=== PATIENT | female | born 1970 | race Caucasian/White ===

== ENCOUNTER 2017-05-13 13:04 | Inpatient (IN) | payer MEDICARE, OTHER ==
[2017-05-13] MEDS ORDERED: MULTIVITAMINS, THERA 1 EACH TAB PO STA (13:36)
[2017-05-13] MEDS ORDERED: THIAMINE 100 MG/ML 2 ML VIAL IM STA (13:36)
[2017-05-13] MEDS ORDERED: FOLIC ACID 1 MG TAB PO STA (13:36)
[2017-05-13] MEDS ORDERED: SODIUM CHLORIDE 0.9% 1,000 ML IV STA (13:36)
[2017-05-13] MEDS ORDERED: LORazepam 2 MG/ML SYRINGE IV PRN (13:38)
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
[2017-05-13] MEDS ORDERED: ONDANSETRON 4 MG/2 ML VIAL IVP STA (13:51)
[2017-05-13] MEDS: LORazepam 2 MG/ML SYRINGE IV PRN ×6 (14:01→23:43)
[2017-05-13 14:10] LABS: CH 32.9; CHCM 34.8; HCT 39.9 % (34.0-46.0); HDW 2.89; HGB 13.9 gm/dL (11.4-16.0); MCH 33.2 pg (25.0-35.0); Mean Platelet Volume 6.7; RDW 15.8 % (11.5-15.5); WBC 4.8 k/uL (3.8-10.6); WBC (Perox) 4.48
[2017-05-13 14:11] LABS: INR 1.1 (<1.2); Prothrombin Time 11.5 sec (9.0-12.0)
[2017-05-13 14:17] LABS: ALT 46 U/L (9-52); AST 70 U/L (14-36); Acetaminophen <10.0 ug/mL; Alkaline Phosphatase 205 U/L (38-126); Anion Gap 13 mmol/L; Blood Urea Nitrogen 6 mg/dL (7-17); Calcium 8.5 mg/dL (8.4-10.2); Carbon Dioxide 25 mmol/L (22-30); Chloride 105 mmol/L (98-107); Glucose 93 mg/dL (74-99); Magnesium 1.7 mg/dL (1.6-2.3); Non-African American GFR(MDRD) >60 (>60 ml/min/1.73 sqM); Phosphorous 4.7 mg/dL (2.5-4.5); Potassium 4.2 mmol/L (3.5-5.1); Salicylate <1.0 mg/dL; Sodium 143 mmol/L (137-145); Total Bilirubin 0.8 mg/dL (0.2-1.3)
[2017-05-13 14:27] LABS: Alcohol 423 mg/dL
[2017-05-13 14:35] LABS: HCG,Quantitative Serum <2.4 mIU/mL
--- NOTE | 2017-05-13 14:41 | CT ---
EXAMINATION TYPE: CT brain [place] wo con DATE OF EXAM: 05/13/2017 COMPARISON: CT brain 04/19/2016 HISTORY: possible seizure CT DLP: 1355.0 mGycm Automated exposure control for dose reduction was used. TECHNIQUE: CT scan of the head and cervical spine are performed without contrast. FINDINGS: Ventricles and sulci appear normal. There is no mass effect nor midline shift. There is n o sign of intracranial hemorrhage. The calvarium is intact. Vertebra have normal alignment. There is narrowing at C6-7 disc space with moderate spurring of the e ndplates. Facet joints are intact. Skull base is intact. There is no evidence of a fracture. There is multilevel hypertrophic facet arthropathy. IMPRESSION: Negative CT scan of the brain. No change compared to old exam. Moderate spondylosis at C6-7. No fracture.
[2017-05-13 14:54] LABS: Add Differential Manual Differential
[2017-05-13 14:57] LABS: Manual Review Performed; Nucleated Red Blood Cells 0 /100 WBC (0-0); RBC Morphology Normal; Total Cells Counted 100
--- NOTE | 2017-05-13 15:08 | CT ---
EXAMINATION TYPE: CT facial bones wo con DATE OF EXAM: 05/13/2017 COMPARISON: NONE HISTORY: possible seizure CT DLP: 373.5 mGycm Automated exposure control for dose reduction was used. TECHNIQUE: CT scan of the sinuses is performed without contrast, axial images are obtained, coronal r eformatted images are also reviewed. FINDINGS: The zygomatic arches are intact. Orbital margins are intact. There is no sign of a blowout fracture. There is fairly normal aeration of the paranasal sinuses. I see no bony destructive process . Maxilla is intact. Visualized mandible appears normal. Nasal bone appears normal. There is no sign of retro-orbital mass. IMPRESSION: Normal exam. No evidence of traumatic injury. 1 to 2 mm minimal mucosal thickening at the floor of the left maxillary sinus noted.
[2017-05-13] MEDS ORDERED: ONDANSETRON 4 MG/2 ML VIAL IVP PRN (16:08)
[2017-05-13] MEDS ORDERED: NALOXONE 0.4 MG/ML 1 ML VIAL IV PRN (16:08)
[2017-05-13] MEDS ORDERED: hydrOXYzine HCL 25 MG TAB PO PRN (19:02)
[2017-05-13] MEDS ORDERED: NAPROXEN 250 MG TAB PO PRN (19:02)
[2017-05-13 19:05] VITALS: BMI 20.7
[2017-05-13] MEDS: PROPRANOLOL 10 MG TAB PO SCH (20:54)
[2017-05-13] MEDS: levETIRAcetam 500 MG TAB PO SCH (20:54)
[2017-05-13] MEDS: OLANZapine 10 MG TAB PO SCH (20:54)
[2017-05-13] MEDS: LITHIUM CARBONATE ER 450 MG TABLET.ER PO SCH (20:54)
[2017-05-14 08:25] LABS: ALT 49 U/L (9-52); AST 66 U/L (14-36); Alkaline Phosphatase 215 U/L (38-126); Anion Gap 8 mmol/L; Blood Urea Nitrogen 12 mg/dL (7-17); Carbon Dioxide 27 mmol/L (22-30); Chloride 105 mmol/L (98-107); Glucose 84 mg/dL (74-99); Magnesium 1.8 mg/dL (1.6-2.3); Non-African American GFR(MDRD) >60 (>60 ml/min/1.73 sqM); Phosphorous 3.9 mg/dL (2.5-4.5); Potassium 4.2 mmol/L (3.5-5.1); Sodium 140 mmol/L (137-145); Total Protein 7.2 g/dL (6.3-8.2)
[2017-05-14 08:31] LABS: Basophils % (A) 1 %; CH 32.5; CHCM 33.8; Eosinophils % (A) 0 %; HDW 2.82; HGB 12.6 gm/dL (11.4-16.0); Luc # (Auto) 0.06; Luc % (Auto) 2; Lymphocytes % (A) 29 %; MCH 32.8 pg (25.0-35.0); MCHC 33.9 g/dL (31.0-37.0); MCV 96.7 fL (80.0-100.0); Macrocytosis Slight; Monocytes # (A) 0.1 k/uL (0-1.0); Monocytes % (A) 4 %; Neutrophils # (A) 2.1 k/uL (1.3-7.7); Neutrophils % (A) 64 %; RBC 3.83 m/uL (3.80-5.40); RDW 15.6 % (11.5-15.5); WBC 3.3 k/uL (3.8-10.6); WBC (Perox) 3.47
[2017-05-14] MEDS: levETIRAcetam 500 MG TAB PO SCH ×2 (08:37→20:39)
[2017-05-14] MEDS: FAMOTIDINE 20 MG TAB PO SCH (08:37)
[2017-05-14] MEDS: LITHIUM CARBONATE ER 450 MG TABLET.ER PO SCH ×2 (08:37→20:39)
[2017-05-14] MEDS: NICOTINE 14MG/24HR PATCH TRANSDERM SCH (08:37)
[2017-05-14] MEDS: PROPRANOLOL 10 MG TAB PO SCH ×4 (08:37→20:38)
[2017-05-14] MEDS: VENLAFAXINE HCL ER 75 MG CAP PO SCH (08:37)
[2017-05-14 11:40] LABS: Manual Review Performed
[2017-05-14] MEDS: THIAMINE 100 MG TAB PO SCH (11:41)
[2017-05-14] MEDS: LORazepam 2 MG/ML SYRINGE IV PRN ×3 (17:01→23:30)
[2017-05-14] MEDS: OLANZapine 10 MG TAB PO SCH (20:39)
[2017-05-15] MEDS: LORazepam 2 MG/ML SYRINGE IV PRN ×2 (01:18→02:31)
[2017-05-15] MEDS ORDERED: DIAZEPAM 5 MG/ML 2 ML SYRINGE IM STA (03:05)
[2017-05-15] MEDS: NICOTINE 14MG/24HR PATCH TRANSDERM SCH (07:41)
[2017-05-15] MEDS: VENLAFAXINE HCL ER 75 MG CAP PO SCH (08:12)
[2017-05-15] MEDS: FAMOTIDINE 20 MG TAB PO SCH (08:12)
[2017-05-15] MEDS: levETIRAcetam 500 MG TAB PO SCH ×2 (08:12→19:54)
[2017-05-15] MEDS: LITHIUM CARBONATE ER 450 MG TABLET.ER PO SCH ×2 (08:13→19:55)
[2017-05-15] MEDS: PROPRANOLOL 10 MG TAB PO SCH ×4 (08:13→21:42)
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
[2017-05-15] MEDS: THIAMINE 100 MG TAB PO SCH (11:38)
[2017-05-15 15:19] VITALS: RESP 16
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
[2017-05-15] MEDS: OLANZapine 10 MG TAB PO SCH (19:54)
[2017-05-15] MEDS: DIAZEPAM 2 MG TAB PO PRN (19:58)
[2017-05-15 21:58] VITALS: PULSE 85
[2017-05-16] MEDS: FAMOTIDINE 20 MG TAB PO SCH (07:28)
[2017-05-16] MEDS: levETIRAcetam 500 MG TAB PO SCH (07:28)
[2017-05-16] MEDS: PROPRANOLOL 10 MG TAB PO SCH (07:28)
[2017-05-16] MEDS: LITHIUM CARBONATE ER 450 MG TABLET.ER PO SCH (07:28)
[2017-05-16] MEDS: VENLAFAXINE HCL ER 75 MG CAP PO SCH (07:28)
[2017-05-16] MEDS: DIAZEPAM 2 MG TAB PO PRN (07:28)
[2017-05-16] MEDS: NICOTINE 14MG/24HR PATCH TRANSDERM SCH (07:29)
[2017-05-16 07:58] VITALS: BP 109/71; TEMP 97.6
--- NOTE | 2017-05-16 11:55 | PN ---
SUBJECTIVE: White female who has a sitter, psychiatry has seen her. Do not recommend being given. The patient requesting some Valium. Alcohol intoxication. She is withdrawing. Mood disorder. She is to continue with current treatment. Follow up in the next 24 to 48 hours for possible discharge. CARDIOVASCULAR: S1, S2, lungs transmitted upper airway sounds. Hematology: Negative Homans. Psych: Fair mood and affect. Neurological: Alert and oriented times three. ASSESSMENT: 1. Alcohol intoxication. 2. Anxiety. 3. Mood disorder. 4. Electrolytes abnormalities. Continue with Detox protocol. Sitter. Possible discharge home in the next 24 to 48 hours. LUCY
== END 2017-05-16 11:21 | disposition home or self-care (01) | DRG 896 ==
LOC: EC 13:04 → 5MS5E 16:08
PROVIDERS: ADMIT Family Medicine; ATTEND Family Medicine
PROC: HZ2ZZZZ Detoxification Services for Substance Abuse Treatment (ICD-10-PCS; principal; 2017-05-13)
DX: F10.129 Alcohol abuse with intoxication, unspecified (principal); K85.90 Acute pancreatitis without necrosis or infection, unspecified; F11.10 Opioid abuse, uncomplicated; R64 Cachexia; F31.9 Bipolar disorder, unspecified; F39 Unspecified mood [affective] disorder; B19.20 Unspecified viral hepatitis C without hepatic coma; G40.909 Epilepsy, unspecified, not intractable, without status epilepticus; K21.9 Gastro-esophageal reflux disease without esophagitis; F12.10 Cannabis abuse, uncomplicated; F41.8 Other specified anxiety disorders; F14.10 Cocaine abuse, uncomplicated; F17.200 Nicotine dependence, unspecified, uncomplicated; Z79.899 Other long term (current) drug therapy; Z86.59 Personal history of other mental and behavioral disorders; Y07.01 Husband, perpetrator of maltreatment and neglect; Y09 Assault by unspecified means
CPT/HCPCS: 36415; 70450; 70486; 72125; 80053; 80178; 80306; 80320; 83520; 83690; 83735; 84100; 84443; 84702; 85025; 85610; 96361; 96372; 96374; 96375; 96376; 99285

== ENCOUNTER 2017-06-18 12:13 | Inpatient (IN) | payer MEDICARE, OTHER ==
[2017-06-18] MEDS ORDERED: SODIUM CHLORIDE 0.9% 500 ML IV STA (12:20)
--- NOTE | 2017-06-18 12:49 | ED ---
General Adult HPI - General Chief complaint: Overdose Stated complaint: Overdose Time Seen by Provider: 06/18/17 12:15 Source: EMS, RN notes reviewed, old records reviewed Mode of arrival: EMS Limitations: altered mental status - History of Present Illness Initial comments: This is a 46-year-old female ER for evaluation. The patient's father EMS for evaluation of unresponsiveness. Patient has continued unresponsiveness here in the ER. EMS color patient's family patient's for strain secondary to clinical condition. Per history patient has history of drug abuse history of heroin and cocaine abuse as well as history of pain pill abuse and also different pill abuse. Patient also states to be suicidal - Related Data Home Medications Medication Instructions Recorded Confirmed Buprenorphine HCl/Naloxone HCl 2 film SL DAILY 05/14/17 06/18/17 [Suboxone 8 mg-2 mg Sl Film] Escitalopram Oxalate [Lexapro] 20 mg PO DAILY 05/14/17 06/18/17 Mirtazapine [Remeron] 15 mg PO HS 05/14/17 06/18/17 QUEtiapine FUMARATE [Seroquel Xr] 400 mg PO HS 05/14/17 06/18/17 cloNIDine HCL [Catapres] 0.1 mg PO BID 05/14/17 06/18/17 Varenicline [Chantix] 1 mg PO BID 06/18/17 06/18/17 Vitamin E (Dl,Tocopheryl Acet) 400 unit PO DAILY 06/18/17 06/18/17 [Vitamin E] levETIRAcetam [Keppra] 500 mg PO Q12HR 06/18/17 06/18/17 Allergies Allergy/AdvReac Type Severity Reaction Status Date / Time Penicillins AdvReac Severe Rash/Hives Verified 06/18/17 14:05 Review of Systems ROS Statement: Those systems with pertinent positive or pertinent negative responses have been documented in the HPI. ROS Other: All systems not noted in ROS Statement are negative. 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 "IN OCTOBER DRANK RUBBING ALCOHOL". FAMILT STATED PT TAKES SUBOXONE TO HELP HER NOT DRINK AND FOR PAIN IN LEGS/KNEES. Hep C Positive History of Any Multi-Drug Resistant Organisms: MRSA Date of last positivie culture/infection: 04/20/16 MDRO Source:: [facility] Past Surgical History: Hernia Repair, Unable to Obtain, Uterine Ablation Additional Past Surgical History / Comment(s): NOVOSURE ENDOMETRIAL ABLATION. PER MOTHER PT HAD "THROAT BANDING DONE" Past Anesthesia/Blood Transfusion Reactions: No Reported Reaction Additional Past Anesthesia/Blood Transfusion Reaction / Comment(s): Pt received previous blood transfusion at [facility] per past medical record. Past Psychological History: Anxiety, Bipolar, Depression, Panic Disorder Smoking Status: Current every day smoker Past Alcohol Use History: Daily Past Drug Use History: None Reported - Past Family History Father Family Medical History: No Reported History Mother Family Medical History: Cancer Additional Family Medical History / Comment(s): COLON AND LUNG CANCER- AT AGE 50 General Exam Limitations: no limitations General appearance: alert, in no apparent distress Head exam: Present: atraumatic, normocephalic, normal inspection Eye exam: Present: normal appearance, PERRL, EOMI. Absent: scleral icterus, conjunctival injection, periorbital swelling ENT exam: Present: normal exam, mucous membranes moist Neck exam: Present: normal inspection. Absent: tenderness, meningismus, lymphadenopathy Respiratory exam: Present: normal lung sounds bilaterally. Absent: respiratory distress, wheezes, rales, rhonchi, stridor Cardiovascular Exam: Present: regular rate, normal rhythm, normal heart sounds. Absent: systolic murmur, diastolic murmur, rubs, gallop, clicks GI/Abdominal exam: Present: soft, normal bowel sounds. Absent: distended, tenderness, guarding, rebound, rigid Extremities exam: Present: normal inspection, full ROM, normal capillary refill. Absent: tenderness, pedal edema, joint swelling, calf tenderness Back exam: Present: normal inspection Neurological exam: Present: alert, oriented X3, CN II-XII intact Psychiatric exam: Present: normal affect, normal mood Skin exam: Present: warm, dry, intact, normal color. Absent: rash Course Vital Signs 06/18/17 06/18/17 06/18/17 12:15 12:54 13:24 Temperature 98.0 F Pulse Rate 104 H 98 106 H Respiratory 18 18 18 Rate Blood Pressure 123/86 107/77 133/91 O2 Sat by Pulse 97 98 94 L Oximetry 06/18/17 06/18/17 06/18/17 13:54 14:27 14:52 Temperature 98.0 F Pulse Rate 100 84 82 Respiratory 18 18 18 Rate Blood Pressure 108/81 93/58 94/58 O2 Sat by Pulse 95 96 97 Oximetry - Reevaluation(s) Reevaluation #1: 06/18/17 13:10 Patient is mildly responsive not responding to Narcan, protecting airway oxygen saturation normal Reevaluation #2: 06/18/17 14:55 Patient angry aggressive EKG Findings - EKG Comments: EKG Findings:: EKG shows normal sinus rhythm rate of 98, AL 180, QRS 94, QTC 513 Medical Decision Making - Medical Decision Making 46 seen earlier with severe alcohol intoxication. Suicidal attempt. Patient be admitted for psychiatric evaluation and treatment - Lab Data Result diagrams: 06/18/17 12:38 06/18/17 13:22 Lab Results 06/18/17 06/18/17 06/18/17 Range/Units 12:38 12:38 12:38 WBC 2.3 L (3.8-10.6) k/uL RBC 4.27 (3.80-5.40) m/uL Hgb 14.1 (11.4-16.0) gm/dL Hct 41.9 (34.0-46.0) % MCV 98.1 (80.0-100.0) fL MCH 33.1 (25.0-35.0) pg MCHC 33.7 (31.0-37.0) g/dL RDW 14.7 (11.5-15.5) % Plt Count (150-450) k/uL Neutrophils % (Manual) 62 % Band Neutrophils % 3 % Lymphocytes % (Manual) 27 % Monocytes % (Manual) 7 % Basophils % (Manual) 1 % Neutrophils # (Manual) 1.40 (1.3-7.7) k/uL Lymphocytes # (Manual) 0.62 L (1.0-4.8) k/uL Monocytes # (Manual) 0.16 (0-1.0) k/uL Basophils # (Manual) 0.02 (0-0.2) k/uL Nucleated RBCs 0 (0-0) /100 WBC PT 11.5 (9.0-12.0) sec INR 1.1 (<1.2) Sodium (137-145) mmol/L Potassium (3.5-5.1) mmol/L Chloride (98-107) mmol/L Carbon Dioxide (22-30) mmol/L Anion Gap mmol/L BUN (7-17) mg/dL Creatinine (0.52-1.04) mg/dL Est GFR (MDRD) Af Amer (>60 ml/min/1.73 sqM) Est GFR (MDRD) Non-Af (>60 ml/min/1.73 sqM) Glucose (74-99) mg/dL Calcium (8.4-10.2) mg/dL Total Bilirubin (0.2-1.3) mg/dL AST (14-36) U/L ALT (9-52) U/L Alkaline Phosphatase (38-126) U/L Total Creatine Kinase 38 (30-135) U/L CK-MB (CK-2) <0.2 (0.0-2.4) ng/mL CK-MB (CK-2) Rel Index Total Protein (6.3-8.2) g/dL Albumin (3.5-5.0) g/dL Urine HCG, Qual (Not Detectd) Salicylates mg/dL Urine Opiates Screen (NotDetected) Ur Oxycodone Screen (NotDetected) Urine Methadone Screen (NotDetected) Ur Propoxyphene Screen (NotDetected) Acetaminophen ug/mL Ur Barbiturates Screen (NotDetected) Phenytoin ug/mL Valproic Acid ug/mL Carbamazepine ug/mL U Tricyclic Antidepress (NotDetected) Ur Phencyclidine Scrn (NotDetected) Ur Amphetamines Screen (NotDetected) U Methamphetamines Scrn (NotDetected) U Benzodiazepines Scrn (NotDetected) [place] mmol/L Urine Cocaine Screen (NotDetected) U Marijuana (THC) Screen (NotDetected) Serum Alcohol mg/dL 06/18/17 06/18/17 06/18/17 Range/Units 12:58 12:58 13:22 WBC (3.8-10.6) k/uL RBC (3.80-5.40) m/uL Hgb (11.4-16.0) gm/dL Hct (34.0-46.0) % MCV (80.0-100.0) fL MCH (25.0-35.0) pg MCHC (31.0-37.0) g/dL RDW (11.5-15.5) % Plt Count (150-450) k/uL Neutrophils % (Manual) % Band Neutrophils % % Lymphocytes % (Manual) % Monocytes % (Manual) % Basophils % (Manual) % Neutrophils # (Manual) (1.3-7.7) k/uL Lymphocytes # (Manual) (1.0-4.8) k/uL Monocytes # (Manual) (0-1.0) k/uL Basophils # (Manual) (0-0.2) k/uL Nucleated RBCs (0-0) /100 WBC PT (9.0-12.0) sec INR (<1.2) Sodium 145 (137-145) mmol/L Potassium 4.1 (3.5-5.1) mmol/L Chloride 110 H (98-107) mmol/L Carbon Dioxide 23 (22-30) mmol/L Anion Gap 12 mmol/L BUN 5 L (7-17) mg/dL Creatinine 0.50 L (0.52-1.04) mg/dL Est GFR (MDRD) Af Amer >60 (>60 ml/min/1.73 sqM) Est GFR (MDRD) Non-Af >60 (>60 ml/min/1.73 sqM) Glucose 110 H (74-99) mg/dL Calcium 8.2 L (8.4-10.2) mg/dL Total Bilirubin 1.2 (0.2-1.3) mg/dL AST 288 H (14-36) U/L ALT 118 H (9-52) U/L Alkaline Phosphatase 317 H (38-126) U/L Total Creatine Kinase (30-135) U/L CK-MB (CK-2) (0.0-2.4) ng/mL CK-MB (CK-2) Rel Index Total Protein 8.0 (6.3-8.2) g/dL Albumin 4.1 (3.5-5.0) g/dL Urine HCG, Qual Not Detected (Not Detectd) Salicylates <1.0 mg/dL Urine Opiates Screen Detected H (NotDetected) Ur Oxycodone Screen Not Detected (NotDetected) Urine Methadone Screen Not Detected (NotDetected) Ur Propoxyphene Screen Not Detected (NotDetected) Acetaminophen <10.0 ug/mL Ur Barbiturates Screen Not Detected (NotDetected) Phenytoin <3.0 ug/mL Valproic Acid ug/mL Carbamazepine ug/mL U Tricyclic Antidepress Not Detected (NotDetected) Ur Phencyclidine Scrn Not Detected (NotDetected) Ur Amphetamines Screen Not Detected (NotDetected) U Methamphetamines Scrn Not Detected (NotDetected) U Benzodiazepines Scrn Not Detected (NotDetected) [place] mmol/L Urine Cocaine Screen Not Detected (NotDetected) U Marijuana (THC) Screen Not Detected (NotDetected) Serum Alcohol mg/dL 06/18/17 Range/Units 13:27 WBC (3.8-10.6) k/uL RBC (3.80-5.40) m/uL Hgb (11.4-16.0) gm/dL Hct (34.0-46.0) % MCV (80.0-100.0) fL MCH (25.0-35.0) pg MCHC (31.0-37.0) g/dL RDW (11.5-15.5) % Plt Count (150-450) k/uL Neutrophils % (Manual) % Band Neutrophils % % Lymphocytes % (Manual) % Monocytes % (Manual) % Basophils % (Manual) % Neutrophils # (Manual) (1.3-7.7) k/uL Lymphocytes # (Manual) (1.0-4.8) k/uL Monocytes # (Manual) (0-1.0) k/uL Basophils # (Manual) (0-0.2) k/uL Nucleated RBCs (0-0) /100 WBC PT (9.0-12.0) sec INR (<1.2) Sodium (137-145) mmol/L Potassium (3.5-5.1) mmol/L Chloride (98-107) mmol/L Carbon Dioxide (22-30) mmol/L Anion Gap mmol/L BUN (7-17) mg/dL Creatinine (0.52-1.04) mg/dL Est GFR (MDRD) Af Amer (>60 ml/min/1.73 sqM) Est GFR (MDRD) Non-Af (>60 ml/min/1.73 sqM) Glucose (74-99) mg/dL Calcium (8.4-10.2) mg/dL Total Bilirubin (0.2-1.3) mg/dL AST (14-36) U/L ALT (9-52) U/L Alkaline Phosphatase (38-126) U/L Total Creatine Kinase (30-135) U/L CK-MB (CK-2) (0.0-2.4) ng/mL CK-MB (CK-2) Rel Index Total Protein (6.3-8.2) g/dL Albumin (3.5-5.0) g/dL Urine HCG, Qual (Not Detectd) Salicylates mg/dL Urine Opiates Screen (NotDetected) Ur Oxycodone Screen (NotDetected) Urine Methadone Screen (NotDetected) Ur Propoxyphene Screen (NotDetected) Acetaminophen ug/mL Ur Barbiturates Screen (NotDetected) Phenytoin ug/mL Valproic Acid <10.0 ug/mL Carbamazepine <3.0 ug/mL U Tricyclic Antidepress (NotDetected) Ur Phencyclidine Scrn (NotDetected) Ur Amphetamines Screen (NotDetected) U Methamphetamines Scrn (NotDetected) U Benzodiazepines Scrn (NotDetected) [place] <0.2 mmol/L Urine Cocaine Screen (NotDetected) U Marijuana (THC) Screen (NotDetected) Serum Alcohol 421 mg/dL Disposition Clinical Impression: Alcoholism, Drug overdose, Alcohol abuse, Alcoholic intoxication, Suicide attempt Disposition: ADMITTED IP TO THIS HOSP Condition: Fair Referrals: None,Stated [Primary Care Provider] - 1-2 days
[2017-06-18 13:04] LABS: Aty Lym Flag Slight; CH 33.8; CHCM 34.7; HCT 41.9 % (34.0-46.0); HDW 2.96; HGB 14.1 gm/dL (11.4-16.0); Large Platelets Flag Slight; MCH 33.1 pg (25.0-35.0); MCHC 33.7 g/dL (31.0-37.0); MCV 98.1 fL (80.0-100.0); Mean Platelet Volume 11.2; RBC 4.27 m/uL (3.80-5.40); RDW 14.7 % (11.5-15.5); WBC 2.3 k/uL (3.8-10.6); WBC (Perox) 2.34
[2017-06-18 13:29] LABS: INR 1.1 (<1.2); Prothrombin Time 11.5 sec (9.0-12.0)
[2017-06-18 13:40] LABS: Add Differential Manual Differential
[2017-06-18 13:45] LABS: Band Neutrophils % 3 %; Nucleated Red Blood Cells 0 /100 WBC (0-0); Total Cells Counted 100
[2017-06-18 13:52] LABS: Creatine Kinase 38 U/L (30-135)
[2017-06-18 13:54] LABS: Carbamazepine (Tegretol) <3.0 ug/mL; Lithium <0.2 mmol/L
[2017-06-18 14:00] LABS: ALT 118 U/L (9-52); AST 288 U/L (14-36); Acetaminophen <10.0 ug/mL; Alkaline Phosphatase 317 U/L (38-126); Anion Gap 12 mmol/L; Blood Urea Nitrogen 5 mg/dL (7-17); Calcium 8.2 mg/dL (8.4-10.2); Carbon Dioxide 23 mmol/L (22-30); Chloride 110 mmol/L (98-107); Glucose 110 mg/dL (74-99); Non-African American GFR(MDRD) >60 (>60 ml/min/1.73 sqM); Potassium 4.1 mmol/L (3.5-5.1); Salicylate <1.0 mg/dL; Sodium 145 mmol/L (137-145); Total Bilirubin 1.2 mg/dL (0.2-1.3)
[2017-06-18 14:02] LABS: Creatine Kinase MB <0.2 ng/mL (0.0-2.4)
[2017-06-18 14:15] LABS: Alcohol 421 mg/dL
[2017-06-18] MEDS ORDERED: SODIUM CHLORIDE 0.9% 1,000 ML IV STA (14:27)
[2017-06-18] MEDS ORDERED: LORazepam 2 MG/ML SYRINGE IV PRN ×2 (14:52)
[2017-06-18] MEDS ORDERED: SODIUM CHLORIDE 0.9% 1,000 ML IV ONE (14:52)
[2017-06-18] MEDS ORDERED: THIAMINE 100 MG/ML 2 ML VIAL IM STA (14:52)
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
[2017-06-18] MEDS: THIAMINE 100 MG TAB PO SCH (17:14)
[2017-06-18] MEDS: LORazepam 2 MG/ML SYRINGE IV PRN (17:23)
[2017-06-19] MEDS: LORazepam 2 MG/ML SYRINGE IV PRN ×7 (01:01→23:56)
[2017-06-19] MEDS: ENOXAPARIN 40 MG/0.4 ML SYRINGE SQ SCH (10:02)
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
--- NOTE | 2017-06-19 12:33 | P.PN ---
Progress Note - Text Interval History: Patient is a 46-year-old female who was seen yesterday in consultation and this is a follow-up to that. I spoke with the patient today who reported that she is shaking and feeling like she is detoxing. Patient had been prior to this taking Suboxone, was using heroin on and off as well as using alcohol. She again stated to me that she was not taking an overdose but was trying to get high and took her Keppra incorrectly. She denies that this was a suicide attempt and states that she has no current suicidal ideation. She reports that she has attempted to commit suicide in the past and that was a year ago with alcohol and an overdose and states that this is not what she was doing prior to admission. Patient reports there are no guns in the house. Patient states that she is going through detox and denied any symptoms of depression, denied racing thoughts, denied any auditory hallucinations and no paranoid ideation. She is only been attending AA meetings 2 times a week and states that she knows what she needs to do to stop drinking but has not been able to do so. Patient states she just got out of rehab in August 2016. Mental Status: Appearance/Attitude: Patient appears shaky, sitting in her hospital bed and made good eye contact and was cooperative. Behavior: Patient does not display any psychomotor agitation or retardation. Speech/Language: Patient's speech is spontaneous, normal volume and rhythm and she is coherent. Thought Process: Patient is goal-directed, there is no evidence of tangential or circumstantial thought and no loose associations or flight of ideas. Thought Content: Patient denies any auditory or visual hallucinations and no paranoid ideation or delusions were elicited. Patient reports that she was not attempting to commit suicide but was trying to get high prior to admission. Patient states that she is not having any racing thoughts and denies feeling hopeless or helpless. Suicidal/Homicidal Ideation: Patient denies any current suicidal or homicidal ideation. Sensorium/Cognition: Patient is alert and oriented to person, place, and time and her memory is grossly Mood/Affect: Patient's mood is anxious, she states she is detoxing and her affect is appropriate to her mood. Insight/Judgement: Patient's insight and judgment are fair. Assessment: patient is not endorsing any psychotic symptoms, she denies that this was an overdose and states that she was trying to get high using alcohol and took her Keppra incorrectly. Patient is also been using heroin IV, cocaine on an intermittent basis and is also prescribe Suboxone. She is also been using alcohol on a daily basis. Patient is currently not expressing any depressive symptoms and no manic symptoms were elicited. Plan: Patient and I discussed inpatient rehab and she declined stating that she was just in it in August and knows what to do. Patient and I also discussed inpatient psychiatric treatment and she declined saying that she did not feel that she needed. Patient was agreeable to outpatient treatment for both substance use as well as treatment of her bipolar diagnosis. Patient does not meet the criteria for an involuntary admission and is declining a voluntary admission to the inpatient psychiatric unit. She is also declining inpatient rehab. I have not started any psychotropic medication as the patient continues to be detoxed. I will make a referral to social work to refer the patient for dual diagnosis outpatient treatment. I discussed this with the patient and she was agreeable to this and I also reviewed with her the need to remain sober. We 'll continue to follow the patient while she is in the hospital and assess whether any psychotropic medication is appropriate at this time.
[2017-06-19] MEDS: THIAMINE 100 MG TAB PO SCH ×2 (12:38→17:33)
[2017-06-19] MEDS ORDERED: ACETAMINOPHEN TAB 325 MG TAB PO PRN (23:27)
[2017-06-20] MEDS: LORazepam 2 MG/ML SYRINGE IV PRN ×3 (02:02→07:45)
[2017-06-20 07:36] VITALS: BP 124/97; PULSE 107; RESP 18; TEMP 98.6
[2017-06-20] MEDS: ENOXAPARIN 40 MG/0.4 ML SYRINGE SQ SCH (07:45)
--- NOTE | 2017-06-21 09:44 | PN ---
SUBJECTIVE: 46 year old white female alcohol intoxication and suicidal ideations. Remaining in withdrawal protocol. CIWA protocol. She is more alert today, eating more. Cardiovascular S1, S2. Lungs clear. Neuro: She has a moderate amount of tremors in her hands. Psych: Anxious, nervous, restless. ASSESSMENT: 1. Alcohol withdrawal. 2. Polysubstance abuse. 3. Suicidal ideations. Suspect discharge to [facility] in the next 24 to 48 hours after withdrawal is done. MTDD
== END 2017-06-20 10:33 | disposition home or self-care (01) | DRG 918 ==
LOC: EC 12:13 → 4MS4W 14:53
PROVIDERS: ADMIT Family Medicine; ATTEND Family Medicine
DX: T50.902A Poisoning by unspecified drugs, medicaments and biological substances, intentional self-harm, initial encounter (principal); F31.9 Bipolar disorder, unspecified; F11.20 Opioid dependence, uncomplicated; F10.239 Alcohol dependence with withdrawal, unspecified; K21.9 Gastro-esophageal reflux disease without esophagitis; B19.20 Unspecified viral hepatitis C without hepatic coma; F19.10 Other psychoactive substance abuse, uncomplicated; F14.10 Cocaine abuse, uncomplicated; F17.200 Nicotine dependence, unspecified, uncomplicated; G40.909 Epilepsy, unspecified, not intractable, without status epilepticus; Z79.899 Other long term (current) drug therapy; Z86.14 Personal history of Methicillin resistant Staphylococcus aureus infection; Y90.8 Blood alcohol level of 240 mg/100 ml or more
CPT/HCPCS: 36415; 80053; 80156; 80164; 80178; 80185; 80306; 80320; 81025; 82550; 82553; 83520; 83605; 85025; 85610; 93005; 94760; 96360; 96361; 96372; 99285

== ENCOUNTER 2020-09-11 15:27 | Emergency (ER) | payer MEDICARE, OTHER ==
[2020-09-11 15:37] VITALS: RESP 16
[2020-09-11] MEDS ORDERED: SODIUM CHLORIDE 0.9% 1,000 ML IV ONE (15:37)
--- NOTE | 2020-09-11 15:42 | ED ---
General Adult HPI - General Chief complaint: Seizure Stated complaint: seizures, overdose Time Seen by Provider: 09/11/20 15:30 Source: EMS Mode of arrival: EMS Limitations: altered mental status - History of Present Illness Initial comments: Patient presents the ED by ambulance for evaluation. Per EMS, the patient's mother reported to them that the patient "went out last night", and she found the patient today with altered mental status. EMS states that the patient was having a generalized tonic-clonic seizure when they arrived on scene. Patient was given Versed 10 mg IM by EMS with resolution of seizure activity. Patient was then given Narcan 2 mg IM without any change in condition per EMS. Patient reportedly has a history of alcohol and drug abuse. There is question of possible overdose. A left tibial IO line was established by EMS. Patient's blood glucose was 128 per EMS. No other history is available at this time, and patient is unable to provide any history secondary to altered mental status. - Related Data Home Medications Medication Instructions Recorded Confirmed Buprenorphine HCl/Naloxone HCl 1 film SL TID 05/14/17 09/11/20 [Suboxone 8 mg-2 mg Sl Film] levETIRAcetam [Keppra] 500 mg PO DIRECTED 06/18/17 09/11/20 Albuterol Inhaler [Ventolin Hfa 1 - 2 puff INHALATION RT-Q4H PRN 09/11/20 09/11/20 Inhaler] Furosemide [Lasix] 20 mg PO DAILY 09/11/20 09/11/20 Gabapentin 800 mg PO TID 09/11/20 09/11/20 LORazepam [Ativan] 1 - 2 mg PO HS 09/11/20 09/11/20 Lactulose 20 gm PO TID 09/11/20 09/11/20 Mirtazapine [Remeron] 45 mg PO HS 09/11/20 09/11/20 SUMAtriptan SUCCINATE [Imitrex] 100 mg PO BID PRN 09/11/20 09/11/20 hydrOXYzine pamoate [hydrOXYzine 50 mg PO Q6H PRN 09/11/20 09/11/20 PAMOATE] tiZANidine [Zanaflex] 4 mg PO Q6H PRN 09/11/20 09/11/20 Allergies Allergy/AdvReac Type Severity Reaction Status Date / Time Penicillins Allergy Severe Rash/Hives Verified 09/11/20 15:37 Review of Systems ROS Statement: Those systems with pertinent positive or pertinent negative responses have been documented in the HPI. ROS Other: All systems not noted in ROS Statement are negative. 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 "IN OCTOBER DRANK RUBBING ALCOHOL". FAMILT STATED PT TAKES SUBOXONE TO HELP HER NOT DRINK AND FOR PAIN IN LEGS/KNEES. Hep C Positive History of Any Multi-Drug Resistant Organisms: MRSA Date of last positivie culture/infection: 04/20/16 MDRO Source:: [facility] Past Surgical History: Hernia Repair, Unable to Obtain, Uterine Ablation Additional Past Surgical History / Comment(s): NOVOSURE ENDOMETRIAL ABLATION. PER MOTHER PT HAD "THROAT BANDING DONE" Past Anesthesia/Blood Transfusion Reactions: No Reported Reaction Additional Past Anesthesia/Blood Transfusion Reaction / Comment(s): Pt received previous blood transfusion at [facility] per past medical record. Past Psychological History: Anxiety, Bipolar, Depression, Panic Disorder Past Alcohol Use History: Daily Past Drug Use History: None Reported - Past Family History Father Family Medical History: No Reported History Mother Family Medical History: Cancer Additional Family Medical History / Comment(s): COLON AND LUNG CANCER- AT AGE 50 General Exam Limitations: altered mental status General appearance: other (Patient is somnolent, but arousable with painful stimulus; patient is breathing comfortably) Head exam: Present: atraumatic, normocephalic Eye exam: Present: normal appearance, PERRL ENT exam: Present: mucous membranes dry Neck exam: Present: other (Trachea is in midline). Absent: tenderness, meningismus Respiratory exam: Present: normal lung sounds bilaterally. Absent: respiratory distress, wheezes, rales, rhonchi, stridor Cardiovascular Exam: Present: regular rate, normal rhythm, normal heart sounds, other (Normal radial pulses bilaterally) GI/Abdominal exam: Present: soft. Absent: distended, tenderness, guarding External exam: Present: normal external exam Extremities exam: Present: other (Left tibial IO line is in place). Absent: pedal edema Back exam: Present: normal inspection Neurological exam: Present: other (Patient is somnolent, but arousable with painful stimulus; patient is moving all 4 extremities spontaneously; patient localizes to pain in all 4 extremities) Skin exam: Present: warm, dry, normal color Course Vital Signs 09/11/20 09/11/20 09/11/20 15:31 16:00 17:15 Temperature 99 F Pulse Rate 76 79 73 Respiratory 16 16 16 Rate Blood Pressure 111/74 115/74 107/76 O2 Sat by Pulse 98 97 96 Oximetry - Reevaluation(s) Reevaluation #1: 09/11/20 17:41 Case, H&P, test results and ED/EMS management were discussed with Dr. Gutiérrez (ED physician at [facility]). He accepts ambulance transfer to the [facility] ED. He has no further recommendations at this time. 09/11/20 17:45 Patient is now more alert and responsive. Patient is now responsive to verbal stimulus, although she is not answering any questions appropriately at this time. Patient continues to be breathing comfortably. EKG Findings - EKG Comments: EKG Findings:: Normal sinus rhythm, ventricular rate of 74 bpm, no ectopy, normal IN and QRS intervals, prolonged QTc interval of 508 ms, normal axis, no ST or T-wave abnormality Medical Decision Making - Medical Decision Making Patient has a history of having a seizure disorder, for which she is treated with Keppra. Patient has not any seizure activity while in the ED. Patient was loaded with a dose of IV Keppra in the ED. Patient is also noted to have an elevated alcohol level, as well as positive opiates and cocaine in her urine tox screen. I suspect that the patient's symptoms are likely secondary to her underlying seizure disorder, as well as alcohol intoxication and drug abuse. Patient is also noted to have an elevated lipase level, which I suspect is secondary to acute pancreatitis from her alcohol abuse. Patient's head CT is unremarkable. Patient's level of consciousness and responsiveness have been improving while in the ED. There is no neurology coverage in the hospital this weekend, so arrangements were made to transfer the patient to the [facility] ED for further evaluation and management. - Lab Data Result diagrams: 09/11/20 15:37 09/11/20 16:33 Lab Results 09/11/20 09/11/20 09/11/20 Range/Units 15:37 15:37 15:37 WBC 5.1 (3.8-10.6) k/uL RBC 4.63 (3.80-5.40) m/uL Hgb 15.2 (11.4-16.0) gm/dL Hct 43.2 (34.0-46.0) % MCV 93.3 (80.0-100.0) fL MCH 32.7 (25.0-35.0) pg MCHC 35.1 (31.0-37.0) g/dL RDW 12.6 (11.5-15.5) % Plt Count (150-450) k/uL MPV 8.3 Neutrophils % 54 % Lymphocytes % 39 % Monocytes % 4 % Eosinophils % 0 % Basophils % 1 % Neutrophils # 2.8 (1.3-7.7) k/uL Lymphocytes # 2.0 (1.0-4.8) k/uL Monocytes # 0.2 (0-1.0) k/uL Eosinophils # 0.0 (0-0.7) k/uL Basophils # 0.0 (0-0.2) k/uL Manual Slide Review Performed RBC Morphology Normal PT (9.0-12.0) sec INR (<1.2) APTT (22.0-30.0) sec VBG pH 7.50 H (7.31-7.41) VBG pCO2 24 L (37-51) mmHg VBG HCO3 18 L (24-28) mmol/L Sodium (137-145) mmol/L Potassium (3.5-5.1) mmol/L Chloride (98-107) mmol/L Carbon Dioxide (22-30) mmol/L Anion Gap mmol/L BUN (7-17) mg/dL Creatinine (0.52-1.04) mg/dL Est GFR (CKD-EPI)AfAm (>60 ml/min/1.73 sqM) Est GFR (CKD-EPI)NonAf (>60 ml/min/1.73 sqM) Glucose (74-99) mg/dL Calcium (8.4-10.2) mg/dL Total Bilirubin (0.2-1.3) mg/dL AST (14-36) U/L ALT (4-34) U/L Alkaline Phosphatase (38-126) U/L Ammonia (<30) umol/L Creatine Kinase (30-135) U/L Troponin I 0.022 (0.000-0.034) ng/mL NT-Pro-B Natriuret Pep pg/mL Total Protein (6.3-8.2) g/dL Albumin (3.5-5.0) g/dL Lipase (23-300) U/L Urine Color Urine Appearance (Clear) Urine pH (5.0-8.0) Ur Specific [place] (1.001-1.035) Urine Protein (Negative) Urine Glucose (UA) (Negative) Urine Ketones (Negative) Urine Blood (Negative) Urine Nitrite (Negative) Urine Bilirubin (Negative) Urine Urobilinogen (<2.0) mg/dL Ur Leukocyte Esterase (Negative) Urine RBC (0-5) /hpf Urine WBC (0-5) /hpf Ur Squamous Epith Cells (0-4) /hpf Urine Bacteria (None) /hpf Hyaline Casts (0-2) /lpf Urine Mucus (None) /hpf Salicylates mg/dL Urine Opiates Screen (NotDetected) Ur Oxycodone Screen (NotDetected) Urine Methadone Screen (NotDetected) Ur Propoxyphene Screen (NotDetected) Acetaminophen ug/mL Ur Barbiturates Screen (NotDetected) U Tricyclic Antidepress (NotDetected) Ur Phencyclidine Scrn (NotDetected) Ur Amphetamines Screen (NotDetected) U Methamphetamines Scrn (NotDetected) U Benzodiazepines Scrn (NotDetected) Urine Cocaine Screen (NotDetected) U Marijuana (THC) Screen (NotDetected) Serum Alcohol mg/dL Acetone, Qual (Negative) 09/11/20 09/11/20 09/11/20 Range/Units 15:38 15:58 16:02 WBC (3.8-10.6) k/uL RBC (3.80-5.40) m/uL Hgb (11.4-16.0) gm/dL Hct (34.0-46.0) % MCV (80.0-100.0) fL MCH (25.0-35.0) pg MCHC (31.0-37.0) g/dL RDW (11.5-15.5) % Plt Count (150-450) k/uL MPV Neutrophils % % Lymphocytes % % Monocytes % % Eosinophils % % Basophils % % Neutrophils # (1.3-7.7) k/uL Lymphocytes # (1.0-4.8) k/uL Monocytes # (0-1.0) k/uL Eosinophils # (0-0.7) k/uL Basophils # (0-0.2) k/uL Manual Slide Review RBC Morphology PT 10.9 (9.0-12.0) sec INR 1.1 (<1.2) APTT 23.3 (22.0-30.0) sec VBG pH (7.31-7.41) VBG pCO2 (37-51) mmHg VBG HCO3 (24-28) mmol/L Sodium (137-145) mmol/L Potassium (3.5-5.1) mmol/L Chloride (98-107) mmol/L Carbon Dioxide (22-30) mmol/L Anion Gap mmol/L BUN (7-17) mg/dL Creatinine (0.52-1.04) mg/dL Est GFR (CKD-EPI)AfAm (>60 ml/min/1.73 sqM) Est GFR (CKD-EPI)NonAf (>60 ml/min/1.73 sqM) Glucose (74-99) mg/dL Calcium (8.4-10.2) mg/dL Total Bilirubin (0.2-1.3) mg/dL AST (14-36) U/L ALT (4-34) U/L Alkaline Phosphatase (38-126) U/L Ammonia 41 H (<30) umol/L Creatine Kinase (30-135) U/L Troponin I (0.000-0.034) ng/mL NT-Pro-B Natriuret Pep pg/mL Total Protein (6.3-8.2) g/dL Albumin (3.5-5.0) g/dL Lipase (23-300) U/L Urine Color Yellow Urine Appearance Cloudy H (Clear) Urine pH 6.0 (5.0-8.0) Ur Specific [place] 1.013 (1.001-1.035) Urine Protein 1+ H (Negative) Urine Glucose (UA) Negative (Negative) Urine Ketones Negative (Negative) Urine Blood Small H (Negative) Urine Nitrite Negative (Negative) Urine Bilirubin Negative (Negative) Urine Urobilinogen 2.0 (<2.0) mg/dL Ur Leukocyte Esterase Large H (Negative) Urine RBC 1 (0-5) /hpf Urine WBC 40 H (0-5) /hpf Ur Squamous Epith Cells <1 (0-4) /hpf Urine Bacteria Rare H (None) /hpf Hyaline Casts 1 (0-2) /lpf Urine Mucus Rare H (None) /hpf Salicylates mg/dL Urine Opiates Screen Detected H (NotDetected) Ur Oxycodone Screen Not Detected (NotDetected) Urine Methadone Screen Not Detected (NotDetected) Ur Propoxyphene Screen Not Detected (NotDetected) Acetaminophen ug/mL Ur Barbiturates Screen Not Detected (NotDetected) U Tricyclic Antidepress Not Detected (NotDetected) Ur Phencyclidine Scrn Not Detected (NotDetected) Ur Amphetamines Screen Not Detected (NotDetected) U Methamphetamines Scrn Not Detected (NotDetected) U Benzodiazepines Scrn Not Detected (NotDetected) Urine Cocaine Screen Detected H (NotDetected) U Marijuana (THC) Screen Not Detected (NotDetected) Serum Alcohol mg/dL Acetone, Qual (Negative) 09/11/20 09/11/20 Range/Units 16:29 16:33 WBC (3.8-10.6) k/uL RBC (3.80-5.40) m/uL Hgb (11.4-16.0) gm/dL Hct (34.0-46.0) % MCV (80.0-100.0) fL MCH (25.0-35.0) pg MCHC (31.0-37.0) g/dL RDW (11.5-15.5) % Plt Count (150-450) k/uL MPV Neutrophils % % Lymphocytes % % Monocytes % % Eosinophils % % Basophils % % Neutrophils # (1.3-7.7) k/uL Lymphocytes # (1.0-4.8) k/uL Monocytes # (0-1.0) k/uL Eosinophils # (0-0.7) k/uL Basophils # (0-0.2) k/uL Manual Slide Review RBC Morphology PT (9.0-12.0) sec INR (<1.2) APTT (22.0-30.0) sec VBG pH (7.31-7.41) VBG pCO2 (37-51) mmHg VBG HCO3 (24-28) mmol/L Sodium 136 L (137-145) mmol/L Potassium 4.3 (3.5-5.1) mmol/L Chloride 105 (98-107) mmol/L Carbon Dioxide 20 L (22-30) mmol/L Anion Gap 11 mmol/L BUN 12 (7-17) mg/dL Creatinine 0.69 (0.52-1.04) mg/dL Est GFR (CKD-EPI)AfAm >90 (>60 ml/min/1.73 sqM) Est GFR (CKD-EPI)NonAf >90 (>60 ml/min/1.73 sqM) Glucose 90 (74-99) mg/dL Calcium 8.5 (8.4-10.2) mg/dL Total Bilirubin 1.0 (0.2-1.3) mg/dL AST 41 H (14-36) U/L ALT 18 (4-34) U/L Alkaline Phosphatase 120 (38-126) U/L Ammonia (<30) umol/L Creatine Kinase 122 (30-135) U/L Troponin I (0.000-0.034) ng/mL NT-Pro-B Natriuret Pep 26 pg/mL Total Protein 7.4 (6.3-8.2) g/dL Albumin 3.8 (3.5-5.0) g/dL Lipase 838 H (23-300) U/L Urine Color Urine Appearance (Clear) Urine pH (5.0-8.0) Ur Specific [place] (1.001-1.035) Urine Protein (Negative) Urine Glucose (UA) (Negative) Urine Ketones (Negative) Urine Blood (Negative) Urine Nitrite (Negative) Urine Bilirubin (Negative) Urine Urobilinogen (<2.0) mg/dL Ur Leukocyte Esterase (Negative) Urine RBC (0-5) /hpf Urine WBC (0-5) /hpf Ur Squamous Epith Cells (0-4) /hpf Urine Bacteria (None) /hpf Hyaline Casts (0-2) /lpf Urine Mucus (None) /hpf Salicylates <1.0 mg/dL Urine Opiates Screen (NotDetected) Ur Oxycodone Screen (NotDetected) Urine Methadone Screen (NotDetected) Ur Propoxyphene Screen (NotDetected) Acetaminophen <10.0 ug/mL Ur Barbiturates Screen (NotDetected) U Tricyclic Antidepress (NotDetected) Ur Phencyclidine Scrn (NotDetected) Ur Amphetamines Screen (NotDetected) U Methamphetamines Scrn (NotDetected) U Benzodiazepines Scrn (NotDetected) Urine Cocaine Screen (NotDetected) U Marijuana (THC) Screen (NotDetected) Serum Alcohol 264 H* mg/dL Acetone, Qual Negative (Negative) - Radiology Data Radiology results: report reviewed (Noncontrast head CT and chest x-ray are both negative) Disposition Clinical Impression: Generalized seizure, Altered mental status, Substance abuse, Alcoholic intoxication, Pancreatitis Disposition: OTHER INSTITUTION NOT DEFINED Condition: Stable Is patient prescribed a controlled substance at d/c from ED?: No Referrals: None,Stated [Primary Care Provider] - 1-2 days Time of Disposition: 17:41 - Out of Hospital Transfer - Req. Specs Out of Hospital Transfer - Requested Specifics: Other Emergency Center ([facility])
[2020-09-11 16:27] LABS: INR 1.1 (<1.2); Partial Thromboplastin Time 23.3 sec (22.0-30.0); Prothrombin Time 10.9 sec (9.0-12.0)
[2020-09-11 16:28] LABS: Appearance,Urine Cloudy (Clear); Bacteria,Urine Rare /hpf; Bilirubin,Urine Negative (Negative); Blood,Urine Small (Negative); Color,Urine Yellow; Glucose,Urine (UA) Negative (Negative); Hyaline Casts,Urine 1 /lpf (0-2); Ketones,Urine Negative (Negative); Leukocyte Esterase,Urine Large (Negative); Mucus,Urine Rare /hpf; Nitrite,Urine Negative (Negative); Protein,Urine 1+ (Negative); RBC,Urine 1 /hpf (0-5); Specific Gravity,Urine 1.013 (1.001-1.035); Squamous Epithelial Cell,Urine <1 /hpf (0-4); WBC,Urine 40 /hpf (0-5)
[2020-09-11 16:43] LABS: Phencyclidine Screen,Urine Not Detected (NotDetected); Urn Cannabinoid Scrn Not Detected (NotDetected)
[2020-09-11 16:44] LABS: Amphetamine Screen,Urine Not Detected (NotDetected); Barbiturate Screen,Urine Not Detected (NotDetected); Benzodiazepines Screen,Urine Not Detected (NotDetected); Cocaine Screen,Urine Detected (NotDetected); Methadone Screen, Urine Not Detected (NotDetected); Opiate Screen,Urine Detected (NotDetected); Oxycodone Screen, Urine Not Detected (NotDetected); Tricyclic Antidepressant,Urine Not Detected (NotDetected)
[2020-09-11 16:46] LABS: Basophils % (A) 1 %; Eosinophils % (A) 0 %; HCT 43.2 % (34.0-46.0); HGB 15.2 gm/dL (11.4-16.0); Lymphocytes % (A) 39 %; MCH 32.7 pg (25.0-35.0); MCHC 35.1 g/dL (31.0-37.0); MCV 93.3 fL (80.0-100.0); Mean Platelet Volume 8.3; Monocytes # (A) 0.2 k/uL (0-1.0); Monocytes % (A) 4 %; Neutrophils # (A) 2.8 k/uL (1.3-7.7); Neutrophils % (A) 54 %; RBC 4.63 m/uL (3.80-5.40); RDW 12.6 % (11.5-15.5); WBC 5.1 k/uL (3.8-10.6)
[2020-09-11] MEDS ORDERED: levETIRAcetam IV 500 MG in SODIUM CHLORIDE 0.9% 100 ML IVPB STA (16:59)
--- NOTE | 2020-09-11 17:05 | XR ---
EXAMINATION TYPE: XR chest 1V portable DATE OF EXAM: 09/11/2020 COMPARISON: 04/21/2016. HISTORY: Seizure. TECHNIQUE: Single frontal view of the chest is obtained. FINDINGS: There is no focal air space opacity, pleural effusion, or pneumothorax seen. The cardiac silhouette size is within normal limits. The osseous structures are intact. IMPRESSION: No acute process.
[2020-09-11 17:09] LABS: ALT 18 U/L (4-34); AST 41 U/L (14-36); Acetaminophen <10.0 ug/mL; African American GFR (CKD) >90 (>60 ml/min/1.73 sqM); Albumin 3.8 g/dL (3.5-5.0); Alkaline Phosphatase 120 U/L (38-126); Anion Gap 11 mmol/L; Blood Urea Nitrogen 12 mg/dL (7-17); Calcium 8.5 mg/dL (8.4-10.2); Carbon Dioxide 20 mmol/L (22-30); Chloride 105 mmol/L (98-107); Creatine Kinase 122 U/L (30-135); Glucose 90 mg/dL (74-99); Lipase 838 U/L (23-300); Non-African American GFR(CKD) >90 (>60 ml/min/1.73 sqM); Potassium 4.3 mmol/L (3.5-5.1); Salicylate <1.0 mg/dL; Sodium 136 mmol/L (137-145); Total Protein 7.4 g/dL (6.3-8.2)
[2020-09-11 17:12] LABS: Alcohol 264 mg/dL
--- NOTE | 2020-09-11 17:22 | CT ---
EXAMINATION TYPE: CT brain wo con DATE OF EXAM: 09/11/2020 COMPARISON: 05/13/2017. HISTORY: Altered mental status. CT DLP: 1080.4 mGycm Automated exposure control for dose reduction was used. FINDINGS: There is no acute intracranial hemorrhage, mass effect, midline shift or hydrocephalus. The white mat ter is grossly preserved. The calvarium is intact. The paranasal sinuses and mastoid air cells are adequately aerated. IMPRESSION: NO ACUTE INTRACRANIAL ABNORMALITY.
[2020-09-11 17:34] LABS: VBG PH 7.5 (7.31-7.41)
[2020-09-11 18:15] VITALS: BP 93/58; PULSE 78; TEMP 98.4
== END 2020-09-11 18:28 | disposition other institution (70) ==
LOC: EC 15:27
DX: G40.409 Other generalized epilepsy and epileptic syndromes, not intractable, without status epilepticus (principal); K85.90 Acute pancreatitis without necrosis or infection, unspecified; F19.10 Other psychoactive substance abuse, uncomplicated; R74.8 Abnormal levels of other serum enzymes; F10.129 Alcohol abuse with intoxication, unspecified; F41.0 Panic disorder [episodic paroxysmal anxiety]; F31.9 Bipolar disorder, unspecified; Z79.899 Other long term (current) drug therapy; Y90.9 Presence of alcohol in blood, level not specified; Z88.0 Allergy status to penicillin; Z86.14 Personal history of Methicillin resistant Staphylococcus aureus infection
CPT/HCPCS: 36415; 93005; 83930; 83880; 80053; 82140; 82550; 82803; 82009; 83690; 84484; 85025; 85610; 85730; 81001; 80306; 83520; 87086; 71045; 70450; 99285; 96365; 96361; G0480 ×2; J1953; 80320; 80329

== ENCOUNTER 2020-09-16 10:18 | Inpatient (IN) | payer MEDICARE, OTHER ==
[2020-09-16] MEDS ORDERED: SODIUM CHLORIDE 0.9% 1,000 ML IV STA (10:32)
[2020-09-16] MEDS ORDERED: LORazepam 2 MG/ML INJ IV PRN (10:33)
[2020-09-16] MEDS ORDERED: THIAMINE 100 MG/ML 2 ML VIAL IM STA (10:33)
--- NOTE | 2020-09-16 10:57 | ED ---
Alcohol HPI - General Chief Complaint: Alcohol Stated Complaint: ETOH/Detox Time Seen by Provider: 09/16/20 10:28 Source: patient, EMS Mode of arrival: EMS Limitations: no limitations - History of Present Illness Initial Comments: Patient is a 50-year-old female, with history of alcohol and drug abuse, presenting to the emergency department via EMS with complaints of alcohol intoxication and "feels like she is going to have a seizure." She does have history of seizures with withdrawals. She states her last drink was last night, her last IV drug use was approximately 3-4 days ago. She is having a little bit of nausea, no vomiting. She denies any chest pain, shortness of breath. She denies any abdominal pain. Patient has no other specific complaints at this time. Upon arrival to the ER, her vital signs are stable. - Related Data Home Medications Medication Instructions Recorded Confirmed Buprenorphine HCl/Naloxone HCl 1 film SL TID 05/14/17 09/11/20 [Suboxone 8 mg-2 mg Sl Film] levETIRAcetam [Keppra] 500 mg PO DIRECTED 06/18/17 09/11/20 Albuterol Inhaler [Ventolin Hfa 1 - 2 puff INHALATION RT-Q4H PRN 09/11/20 09/11/20 Inhaler] Furosemide [Lasix] 20 mg PO DAILY 09/11/20 09/11/20 Gabapentin 800 mg PO TID 09/11/20 09/11/20 LORazepam [Ativan] 1 - 2 mg PO HS 09/11/20 09/11/20 Lactulose 20 gm PO TID 09/11/20 09/11/20 Mirtazapine [Remeron] 45 mg PO HS 09/11/20 09/11/20 SUMAtriptan SUCCINATE [Imitrex] 100 mg PO BID PRN 09/11/20 09/11/20 hydrOXYzine pamoate [hydrOXYzine 50 mg PO Q6H PRN 09/11/20 09/11/20 PAMOATE] tiZANidine [Zanaflex] 4 mg PO Q6H PRN 09/11/20 09/11/20 Allergies Allergy/AdvReac Type Severity Reaction Status Date / Time Penicillins Allergy Severe Rash/Hives Verified 09/16/20 10:27 Review of Systems ROS Statement: Those systems with pertinent positive or pertinent negative responses have been documented in the HPI. ROS Other: All systems not noted in ROS Statement are negative. 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 "IN OCTOBER DRANK RUBBING ALCOHOL". FAMILT STATED PT TAKES SUBOXONE TO HELP HER NOT DRINK AND FOR PAIN IN LEGS/KNEES. Hep C Positive History of Any Multi-Drug Resistant Organisms: MRSA Date of last positivie culture/infection: 04/20/16 MDRO Source:: SPUTUM Past Surgical History: Hernia Repair, Unable to Obtain, Uterine Ablation Additional Past Surgical History / Comment(s): NOVOSURE ENDOMETRIAL ABLATION. PER MOTHER PT HAD "THROAT BANDING DONE" Past Anesthesia/Blood Transfusion Reactions: No Reported Reaction Additional Past Anesthesia/Blood Transfusion Reaction / Comment(s): Pt received previous blood transfusion at [facility] per past medical record. Past Psychological History: Anxiety, Bipolar, Depression, Panic Disorder Smoking Status: Current every day smoker Past Alcohol Use History: Abuse, Daily Past Drug Use History: Heroin, IV Drug Use - Past Family History Father Family Medical History: No Reported History Mother Family Medical History: Cancer Additional Family Medical History / Comment(s): COLON AND LUNG CANCER- AT AGE 50 General Exam - General Exam Comments Initial Comments: GENERAL: She is nontoxic, appears intoxicated, no acute distress. HEAD: Atraumatic, normocephalic. EYES: Pupils equal round and reactive to light, extraocular movements intact, sclera anicteric, conjunctiva are normal. Eyelids were unremarkable. ENT: TMs normal, nares patent, oropharynx clear without exudates. Moist mucous membranes. NECK: Normal range of motion, supple without lymphadenopathy or JVD. LUNGS: Unlabored respirations. Breath sounds clear to auscultation bilaterally and equal. No wheezes rales or rhonchi. HEART: Regular rate and rhythm, murmur present. ABDOMEN: Soft, nontender, normoactive bowel sounds. No guarding, no rebound. No masses appreciated. : Deferred MUSCULOSKELETAL: Normal extremities with adequate strength and normal range of motion, no pitting or edema. No clubbing or cyanosis. NEUROLOGICAL: Patient is alert and oriented x 3. Motor and sensory are also intact. Cranial nerves II through XII grossly intact. Symmetrical smile. Normal speech, normal gait. PSYCH: Normal mood, normal affect, appears intoxicated. SKIN: Warm, Dry, normal turgor, no rashes or lesions noted. Limitations: no limitations Course Vital Signs 09/16/20 09/16/20 10:20 13:50 Temperature 98.2 F Pulse Rate 94 107 H Respiratory 18 17 Rate Blood Pressure 144/92 129/84 O2 Sat by Pulse 95 98 Oximetry Medical Decision Making - Medical Decision Making Patient is a 50-year-old female presenting via EMS for alcohol intoxication, shakes. She does have history of withdrawal seizures. No seizures today. Her last drink was last night, she is an IV drug abuser as well, last drug was 4 days ago. Her vital signs are stable upon arrival, labs show no acute process, urine shows no evidence of infection, opiates and benzos in the urine tox screen, serum alcohol is 143. Patient's initial CIWA scale was 17, after Ativan went down to 8. Patient will be admitted for alcohol withdrawal. Patient accepted by Dr. Torres. Case discussed with Dr. Ernst. - Lab Data Result diagrams: 09/16/20 10:52 09/16/20 10:52 Lab Results 09/16/20 09/16/20 09/16/20 Range/Units 10:52 10:52 11:08 WBC 7.1 (3.8-10.6) k/uL RBC 4.53 (3.80-5.40) m/uL Hgb 14.7 (11.4-16.0) gm/dL Hct 42.1 (34.0-46.0) % MCV 92.8 (80.0-100.0) fL MCH 32.4 (25.0-35.0) pg MCHC 34.9 (31.0-37.0) g/dL RDW 12.5 (11.5-15.5) % Plt Count 113 L (150-450) k/uL MPV 7.1 Neutrophils % 80 % Lymphocytes % 15 % Monocytes % 3 % Eosinophils % 1 % Basophils % 0 % Neutrophils # 5.7 (1.3-7.7) k/uL Lymphocytes # 1.1 (1.0-4.8) k/uL Monocytes # 0.2 (0-1.0) k/uL Eosinophils # 0.0 (0-0.7) k/uL Basophils # 0.0 (0-0.2) k/uL Sodium 140 (137-145) mmol/L Potassium 4.1 (3.5-5.1) mmol/L Chloride 102 (98-107) mmol/L Carbon Dioxide 27 (22-30) mmol/L Anion Gap 11 mmol/L BUN 4 L (7-17) mg/dL Creatinine 0.56 (0.52-1.04) mg/dL Est GFR (CKD-EPI)AfAm >90 (>60 ml/min/1.73 sqM) Est GFR (CKD-EPI)NonAf >90 (>60 ml/min/1.73 sqM) Glucose 116 H (74-99) mg/dL Calcium 9.3 (8.4-10.2) mg/dL Magnesium 1.8 (1.6-2.3) mg/dL Total Bilirubin 1.0 (0.2-1.3) mg/dL AST 63 H (14-36) U/L ALT 41 H (4-34) U/L Alkaline Phosphatase 142 H (38-126) U/L Total Protein 8.0 (6.3-8.2) g/dL Albumin 4.3 (3.5-5.0) g/dL Urine Color Yellow Urine Appearance Cloudy H (Clear) Urine pH 6.5 (5.0-8.0) Ur Specific [place] 1.011 (1.001-1.035) Urine Protein 1+ H (Negative) Urine Glucose (UA) Negative (Negative) Urine Ketones Negative (Negative) Urine Blood Moderate H (Negative) Urine Nitrite Negative (Negative) Urine Bilirubin Negative (Negative) Urine Urobilinogen 4.0 (<2.0) mg/dL Ur Leukocyte Esterase Negative (Negative) Urine RBC 8 H (0-5) /hpf Urine WBC 2 (0-5) /hpf Ur Squamous Epith Cells 10 H (0-4) /hpf Urine Bacteria Occasional H (None) /hpf Hyaline Casts 1 (0-2) /lpf Urine Mucus Rare H (None) /hpf Urine Opiates Screen Detected H (NotDetected) Ur Oxycodone Screen Not Detected (NotDetected) Urine Methadone Screen Not Detected (NotDetected) Ur Propoxyphene Screen Not Detected (NotDetected) Ur Barbiturates Screen Not Detected (NotDetected) U Tricyclic Antidepress Not Detected (NotDetected) Ur Phencyclidine Scrn Not Detected (NotDetected) Ur Amphetamines Screen Not Detected (NotDetected) U Methamphetamines Scrn Not Detected (NotDetected) U Benzodiazepines Scrn Detected H (NotDetected) Urine Cocaine Screen Not Detected (NotDetected) U Marijuana (THC) Screen Not Detected (NotDetected) Serum Alcohol 143 mg/dL Disposition Clinical Impression: Alcoholic intoxication, Alcohol withdrawal syndrome Disposition: ADMITTED IP TO [facility] Condition: Stable Is patient prescribed a controlled substance at d/c from ED?: No Decision Date: 09/16/20 Decision Time: 12:34
[2020-09-16 11:12] LABS: Basophils % (A) 0 %; Eosinophils % (A) 1 %; HCT 42.1 % (34.0-46.0); HGB 14.7 gm/dL (11.4-16.0); Lymphocytes # (A) 1.1 k/uL (1.0-4.8); Lymphocytes % (A) 15 %; MCH 32.4 pg (25.0-35.0); MCHC 34.9 g/dL (31.0-37.0); MCV 92.8 fL (80.0-100.0); Mean Platelet Volume 7.1; Monocytes # (A) 0.2 k/uL (0-1.0); Monocytes % (A) 3 %; Neutrophils # (A) 5.7 k/uL (1.3-7.7); Neutrophils % (A) 80 %; Platelet Count 113 k/uL (150-450); RBC 4.53 m/uL (3.80-5.40); RDW 12.5 % (11.5-15.5); WBC 7.1 k/uL (3.8-10.6)
[2020-09-16 11:21] LABS: ALT 41 U/L (4-34); AST 63 U/L (14-36); African American GFR (CKD) >90 (>60 ml/min/1.73 sqM); Albumin 4.3 g/dL (3.5-5.0); Alkaline Phosphatase 142 U/L (38-126); Anion Gap 11 mmol/L; Blood Urea Nitrogen 4 mg/dL (7-17); Calcium 9.3 mg/dL (8.4-10.2); Carbon Dioxide 27 mmol/L (22-30); Chloride 102 mmol/L (98-107); Glucose 116 mg/dL (74-99); Magnesium 1.8 mg/dL (1.6-2.3); Non-African American GFR(CKD) >90 (>60 ml/min/1.73 sqM); Potassium 4.1 mmol/L (3.5-5.1); Sodium 140 mmol/L (137-145)
[2020-09-16 11:26] LABS: Appearance,Urine Cloudy (Clear); Bacteria,Urine Occasional /hpf; Bilirubin,Urine Negative (Negative); Blood,Urine Moderate (Negative); Color,Urine Yellow; Glucose,Urine (UA) Negative (Negative); Hyaline Casts,Urine 1 /lpf (0-2); Ketones,Urine Negative (Negative); Leukocyte Esterase,Urine Negative (Negative); Mucus,Urine Rare /hpf; Nitrite,Urine Negative (Negative); PH, Urine 6.5 (5.0-8.0); Protein,Urine 1+ (Negative); RBC,Urine 8 /hpf (0-5); Specific Gravity,Urine 1.011 (1.001-1.035); Squamous Epithelial Cell,Urine 10 /hpf (0-4); WBC,Urine 2 /hpf (0-5)
[2020-09-16 11:39] LABS: Alcohol 143 mg/dL
[2020-09-16 12:08] LABS: Amphetamine Screen,Urine Not Detected (NotDetected); Barbiturate Screen,Urine Not Detected (NotDetected); Benzodiazepines Screen,Urine Detected (NotDetected); Cocaine Screen,Urine Not Detected (NotDetected); Methadone Screen, Urine Not Detected (NotDetected); Opiate Screen,Urine Detected (NotDetected); Oxycodone Screen, Urine Not Detected (NotDetected); Phencyclidine Screen,Urine Not Detected (NotDetected); Tricyclic Antidepressant,Urine Not Detected (NotDetected); Urn Cannabinoid Scrn Not Detected (NotDetected)
[2020-09-16] MEDS ORDERED: KETOROLAC 15 MG/ML 1 ML VIAL IVP PRN (12:30)
[2020-09-16] MEDS ORDERED: NALOXONE 0.4 MG/ML 1 ML VIAL IV PRN ×2 (12:30→13:14)
[2020-09-16] MEDS ORDERED: ACETAMINOPHEN TAB 325 MG TAB PO PRN (12:30)
[2020-09-16] MEDS ORDERED: ONDANSETRON 4 MG/2 ML VIAL IVP PRN (12:30)
[2020-09-16] MEDS: LORazepam 2 MG/ML INJ IV PRN ×5 (12:39→21:44)
[2020-09-16] MEDS ORDERED: LOPERAMIDE 2 MG CAP PO PRN (13:30)
--- NOTE | 2020-09-16 14:02 | P.HPIM ---
History of Present Illness H&P Date: 09/16/20 Chief Complaint: alcohol withdrawal 50 year old woman with polysubstance abuse, bipolar disorder, ETOH abuse, seizure disorder presented for evaluation of alcohol withdrawal symptoms. She is a poor historian and only complains that she is going through withdrawal and feels like she might be about to have a seizure. She tells me that she drinks about 6-8 beers of 8% ABV daily. She hasn't had a drink in 1.5 days. She is also an active heroin user, last injection 4 days ago per patient. Her UTox was positive for methamphetamine, but patient denies use of meth. Denies fevers, chills, chest pain, palps, dyspnea. Feels anxious, tremulous, sweaty. Review of Systems All Systems reviewed and pertinent positives and negatives noted in HPI, all other symptoms are negative Past Medical History Past Medical History: Eye Disorder, GERD/Reflux, GI Bleed, Liver Disease, Musculoskeletal Disorder, Neurologic Disorder, Seizure Disorder Additional Past Medical History / Comment(s): SEIZURE FROM ETOH, SHINGLE 6 YERAS AGO,MURMUR,TORN CATILAGE IN KNEES PER PTS MOTHER IN LAW-PT HAD LIVER FAILURE IN PAST, HEP C- NEVER TX (PAST HEROIN USE),AND BULEMIA.ANXIETY/ DEPRESSION, PAST SUICIDE ATTEMPS. "IN OCTOBER DRANK RUBBING ALCOHOL". FAMILT STATED PT TAKES SUBOXONE TO HELP HER NOT DRINK AND FOR PAIN IN LEGS/KNEES. Hep C Positive History of Any Multi-Drug Resistant Organisms: MRSA Date of last positivie culture/infection: 04/20/16 MDRO Source:: SPUTUM Past Surgical History: Hernia Repair, Unable to Obtain, Uterine Ablation Additional Past Surgical History / Comment(s): NOVOSURE ENDOMETRIAL ABLATION. PER MOTHER PT HAD "THROAT BANDING DONE" Past Anesthesia/Blood Transfusion Reactions: No Reported Reaction Additional Past Anesthesia/Blood Transfusion Reaction / Comment(s): Pt received previous blood transfusion at [facility] per past medical record. Past Psychological History: Anxiety, Bipolar, Depression, Panic Disorder Smoking Status: Current every day smoker Past Alcohol Use History: Abuse, Daily Past Drug Use History: Heroin, IV Drug Use - Past Family History Father Family Medical History: No Reported History Mother Family Medical History: Cancer Additional Family Medical History / Comment(s): COLON AND LUNG CANCER- AT AGE 50 Medications and Allergies Home Medications Medication Instructions Recorded Confirmed Type Buprenorphine HCl/Naloxone HCl 1 film SL TID 05/14/17 09/11/20 History [Suboxone 8 mg-2 mg Sl Film] levETIRAcetam [Keppra] 500 mg PO DIRECTED 06/18/17 09/11/20 History Albuterol Inhaler [Ventolin Hfa 1 - 2 puff INHALATION RT-Q4H PRN 09/11/20 09/11/20 History Inhaler] Furosemide [Lasix] 20 mg PO DAILY 09/11/20 09/11/20 History Gabapentin 800 mg PO TID 09/11/20 09/11/20 History LORazepam [Ativan] 1 - 2 mg PO HS 09/11/20 09/11/20 History Lactulose 20 gm PO TID 09/11/20 09/11/20 History Mirtazapine [Remeron] 45 mg PO HS 09/11/20 09/11/20 History SUMAtriptan SUCCINATE [Imitrex] 100 mg PO BID PRN 09/11/20 09/11/20 History hydrOXYzine pamoate [hydrOXYzine 50 mg PO Q6H PRN 09/11/20 09/11/20 History PAMOATE] tiZANidine [Zanaflex] 4 mg PO Q6H PRN 09/11/20 09/11/20 History Allergies Allergy/AdvReac Type Severity Reaction Status Date / Time Penicillins Allergy Severe Rash/Hives Verified 09/16/20 10:27 Physical Exam Osteopathic Statement: *. No significant issues noted on an osteopathic structural exam other than those noted in the History and Physical/Consult. Vitals: Vital Signs Temp Pulse Resp BP Pulse Ox 09/16/20 10:20 98.2 F 94 18 144/92 95 Intake and Output 09/15/20 09/16/20 09/16/20 22:59 06:59 14:59 Other: Weight 68.039 kg Gen: awake, alert HEENT: normocephalic, atraumatic, good hearing acuity, moist mucous membranes Resp: CTAB, good air exchange, no accessory muscle use, no wheezes, crackles, rhonchi CVS: good distal perfusion x 4, tachycardic, with systolic ejection murmur GI: soft, NTTP, ND : no SPT, no CVAT, zimmerman catheter not present MSK: no pitting edema, no clubbing Neuro: non-focal, no sensory deficits, appropriate tone Psych: Depressed mood, anxious affect Results CBC & Chem 7: 09/16/20 10:52 09/16/20 10:52 Labs: Abnormal Lab Results - Last 24 Hours (Table) 09/16/20 09/16/20 09/16/20 Range/Units 10:52 10:52 11:08 Plt Count 113 L (150-450) k/uL BUN 4 L (7-17) mg/dL Glucose 116 H (74-99) mg/dL AST 63 H (14-36) U/L ALT 41 H (4-34) U/L Alkaline Phosphatase 142 H (38-126) U/L Urine Appearance Cloudy H (Clear) Urine Protein 1+ H (Negative) Urine Blood Moderate H (Negative) Urine RBC 8 H (0-5) /hpf Ur Squamous Epith Cells 10 H (0-4) /hpf Urine Bacteria Occasional H (None) /hpf Urine Mucus Rare H (None) /hpf Urine Opiates Screen Detected H (NotDetected) U Benzodiazepines Scrn Detected H (NotDetected) Assessment and Plan Assessment: 1. Alcohol withdrawal syndrome 2. Alcohol abuse disorder 3. Polysubstance abuse disorder, including injectable drugs 4. Bipolar disorder 50-year-old woman with past medical history polysubstance abuse disorder including injectable drugs, bipolar disorder, alcohol abuse disorder presented with alcohol withdrawal syndrome in the setting of having ceased alcohol 1-1/2 days ago. Plan: - admit to telemetry - CIWA + Ativan PRN - thiamine/folate/MVI - alcohol cessation counseling - needs counseling regarding cessation of injectable drugs - low threshold for echo evaluation if patient becomes toxic appearing - psych consult, appreciate recs - patient would benefit from safe needle practice counseling Full Code
[2020-09-16] MEDS: SODIUM CHLORIDE 0.9% 1,000 ML IV SCH (15:39)
[2020-09-16] MEDS: THIAMINE 100 MG TAB PO SCH (21:44)
[2020-09-17] MEDS: SODIUM CHLORIDE 0.9% 1,000 ML IV SCH ×2 (06:10→23:28)
[2020-09-17] MEDS: LORazepam 2 MG/ML INJ IV PRN ×7 (06:23→19:56)
[2020-09-17 08:23] LABS: Basophils % (A) 0 %; Eosinophils % (A) 0 %; HCT 37.6 % (34.0-46.0); HGB 12.7 gm/dL (11.4-16.0); Lymphocytes # (A) 1.1 k/uL (1.0-4.8); Lymphocytes % (A) 23 %; MCHC 33.7 g/dL (31.0-37.0); MCV 95.1 fL (80.0-100.0); Mean Platelet Volume 9.6; Monocytes # (A) 0.5 k/uL (0-1.0); Monocytes % (A) 11 %; Neutrophils % (A) 63 %; RBC 3.96 m/uL (3.80-5.40); RDW 13.2 % (11.5-15.5); WBC 4.7 k/uL (3.8-10.6)
[2020-09-17 08:26] LABS: Platelet Count 22 k/uL (150-450)
[2020-09-17] MEDS: THIAMINE 100 MG TAB PO SCH ×2 (09:28→16:50)
[2020-09-17 10:48] LABS: African American GFR (CKD) 117.1 (60.0-200.0); Albumin 3.4 g/dL (3.80-4.90); Albumin/Globulin Ratio 1.17 (1.60-3.17); Anion Gap 6.7 mmol/L (4.00-12.00); BUN/Creat Ratio 17.14 Ratio (12.00-20.00); Calcium 9.1 mg/dL (8.7-10.3); Carbon Dioxide 27.3 mmol/L (21.6-31.8); Globulin 2.9 g/dL (1.6-3.3); Magnesium 1.7 mg/dL (1.5-2.4); Potassium 3.8 mmol/L (3.5-5.5); Total Bilirubin 1.1 mg/dL (0.2-1.2); Total Protein 6.3 g/dL (6.2-8.2)
--- NOTE | 2020-09-17 11:46 | XR ---
EXAMINATION TYPE: XR chest 1V portable DATE OF EXAM: 09/17/2020 CLINICAL HISTORY: New onset of cough. TECHNIQUE: Portable frontal view of the chest. COMPARISON: 09/11/2020 chest radiograph FINDINGS: The cardiomediastinal silhouette is within normal limits for size. Pulmonary vasculature i s normal. There is no focal air space opacity, pleural effusion, or pneumothorax seen. Degenerative c hanges of the shoulders. IMPRESSION: No acute cardiopulmonary process.
--- NOTE | 2020-09-17 12:39 | P.CN ---
Psychiatric Consult - . Consult date: 09/17/20 Consult:: 09/17/20 12:29 IDENTIFYING DATA: This patient is a 50-year-old female who has a long history of alcohol and substance abuse. Patient is currently lives in a house with her has 1 adult son and collect Social Security REASON FOR REFERRAL: Psychiatry was consulted for polysubstance abuse HISTORY OF PRESENT ILLNESS: The patient presented to the hospital via EMS for "alcohol intoxication". Patient was stating as though she was feeling that she was going to have a seizure and had a history of withdrawal seizures from alcohol use in the past. Patient states that her last drink was one night before coming in the hospital. She claims that she has been drinking approximately 60 beers a day. She also claims that she has been recently using IV drug use however her last use was 3-4 days ago. Patient's UDS was positive for benzodiazepines and opiates. Patient's blood alcohol level was 140 throughout admission. Patient appeared to be anxious at the bedside today and states that she was feeling mild depression and "a lot of anxiety". She claims that she is having some alcohol withdrawal symptoms and has had history of complicated withdrawal in the past. She states that she was at [facility] in winter for 1 month during the treatment program for her substance use. She states that she had been dealing with relapses and claims that she relapsed on alcohol 1 week ago after being sober for 90 days before that. She denied any specific tremor triggers however did say that her and her are both dealing with addiction issues and she also claims that she is feeling disappointed in her relapse. She states that she is sleeping poorly at night . At this time patient denies any suicidal or homical ideations, intent or plan. Patient denies any auditory, visual hallucinations and denies any paranoia or delusions. Patients admits to using alcohol daily as listed above. She also claimed that she uses cigarettes daily. She claims that she uses heroin and is currently on Suboxone. PAST PSYCHIATRIC HISTORY: Patient has a a history of polysubstance abuse, depression and anxiety. She was previously on lithium, Zyprexa Effexor Atarax in the past and is now currently on Suboxone and Remeron. She states that she does not have an outpatient psychiatrist. Patient's last mental health admission was in 2015. Patient denies any psychiatric outpatient follow-up. She claims that she overdosed on her medications years back. PAST MEDICAL HISTORY: eye disorder, GERD, seizure disorder, hepatitis C. ALLERGIES: as per EMR. CHEMICAL DEPENDENCY HISTORY: as per HPI. FAMILY PSYCHIATRIC/SUBSTANCE USE HISTORY: denies SOCIAL HISTORY: Patient was born and raised in [place]. 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 She denies any legal history. She currently is lives with her and house has 1 son and collect Social Security.. MENTAL STATUS EXAM: General Appearance: Patient appears to be thin, anxious, older than stated age is alert, and attempts to be cooperative. Patient appears to have poor hygiene and grooming wearing hospital gown with poor eye contact. Behavior: Patient is calmly lying in bed without any agitated behavior. Appears to be anxious. Speech: Patient's speech is fluent and nonpressured. Mood/Affect: Patient reports their mood is "depressed and anxious", affect is congruent Suicidality/Homicidality: Patient denies having any suicidal or homicidal ideation intent or plan. Perceptions: Patient denies any visual hallucinations and denies any auditory hallucinations Though content/process: There is no evidence of any delusional thought content and thought process is linear and goal-directed. Focused on her symptoms. Memory and concentration: AOX3, grossly intact for the purposes of this session. Can spell "WORLD" backwards Judgment and insight: poor IMPRESSIONS: Depressive disorder unspecified, rule out secondary to polysubstance abuse Anxiety disorder unspecified Alcohol use disorder, currently in withdrawal Opioid dependence Nicotine dependence PLAN: -At this time patient DOES NOT meet criteria for inpatient psychiatric admission. -Would recommend the following medication changes/additions: Started Zyprexa 2.5 mg daily +5 mg daily at bedtime for anxiety/mood stabilization/insomnia and to help with withdrawal symptoms. vistaril 25mg q6hr prn for anxiety. -therapeutic program worker to provide patient with outpatient mental health/psychiatry resources for appropriate follow up upon discharge. -CIWA with prn ativan for etoh withdrawal. -[employer] spoke with patient about substance abuse and the harmful effects on medical and mental health, patient verbally understood and agreed. -therapeutic program worker to provide patient substance use treatment resources including AA/NA meetings in the community. therapeutic program worker to provide patient with access line number to call for inpatient substance rehab -Communicated plan to patient's nurse -Will continue to follow along -Please contact with any questions.
[2020-09-17] MEDS: OLANZapine 2.5 MG TAB PO SCH (14:05)
--- NOTE | 2020-09-17 14:49 | P.PN ---
Subjective Progress Note Date: 09/17/20 Pt is doing better today, but still reports anxiety and tremors from withdrawal. Objective - Vital Signs Vital signs: Vital Signs Temp 98.7 F 09/17/20 07:30 Pulse 95 09/17/20 07:30 Resp 17 09/17/20 07:30 BP 102/73 09/17/20 07:30 Pulse Ox 94 L 09/17/20 07:30 Intake & Output 09/16/20 09/17/20 09/17/20 18:59 06:59 18:59 Weight 68.039 kg Other: Voiding Method Toilet Toilet # Voids 1 2 - Exam Gen: awake, alert HEENT: normocephalic, atraumatic, good hearing acuity, moist mucous membranes Resp: CTAB, good air exchange, no accessory muscle use, no wheezes, crackles, rhonchi CVS: good distal perfusion x 4, tachycardic, with systolic ejection murmur GI: soft, NTTP, ND : no SPT, no CVAT, zimmerman catheter not present MSK: no pitting edema, no clubbing Neuro: non-focal, no sensory deficits, appropriate tone Psych: Depressed mood, anxious affect - Labs CBC & Chem 7: 09/17/20 06:46 09/17/20 06:46 Labs: Abnormal Lab Results - Last 24 Hours (Table) 09/17/20 09/17/20 Range/Units 06:46 06:46 Plt Count 22 L D (150-450) k/uL AST 49 H (13-35) U/L Alkaline Phosphatase 131 H (41-126) U/L Albumin 3.40 L (3.80-4.90) g/dL Albumin/Globulin Ratio 1.17 L (1.60-3.17) g/dL Assessment and Plan Assessment: 1. Alcohol withdrawal syndrome 2. Alcohol abuse disorder 3. Polysubstance abuse disorder, including injectable drugs 4. Bipolar disorder 50-year-old woman with past medical history polysubstance abuse disorder including injectable drugs, bipolar disorder, alcohol abuse disorder presented with alcohol withdrawal syndrome in the setting of having ceased alcohol 1-1/2 days ago. Plan: - admit to telemetry - CIWA + Ativan PRN - thiamine/folate/MVI - alcohol cessation counseling - needs counseling regarding cessation of injectable drugs - low threshold for echo evaluation if patient becomes toxic appearing - psych consult, appreciate recs - patient would benefit from safe needle practice counseling Full Code
[2020-09-17] MEDS: hydrOXYzine pamoate 25 MG CAP PO PRN (19:56)
[2020-09-17] MEDS: OLANZapine 5 MG TAB PO SCH (19:56)
[2020-09-18] MEDS: LORazepam 2 MG/ML INJ IV PRN ×8 (03:37→22:21)
[2020-09-18] MEDS: THIAMINE 100 MG TAB PO SCH ×2 (07:45→17:45)
[2020-09-18] MEDS: OLANZapine 2.5 MG TAB PO SCH (07:47)
[2020-09-18] MEDS ORDERED: LORazepam 2 MG/ML INJ IV PRN (09:49)
--- NOTE | 2020-09-18 12:59 | P.PN ---
Subjective Progress Note Date: 09/18/20 Ongoing withdrawal symptoms of nausea, tremulousness, anxiety Objective - Vital Signs Vital signs: Vital Signs Temp 98.0 F 09/18/20 07:43 Pulse 73 09/18/20 07:43 Resp 20 09/18/20 07:43 BP 119/72 09/18/20 07:43 Pulse Ox 91 L 09/18/20 07:43 Intake & Output 09/17/20 09/18/20 09/18/20 18:59 06:59 18:59 Intake Total 480 Balance 480 Intake: IV 480 Sodium Chloride 0.9% 1, 480 000 ml @ 60 mls/hr IV . [id number] [facility] Rx#:[id number] Other: Voiding Method Toilet Toilet Toilet # Voids 1 5 - Exam Gen: awake, alert HEENT: normocephalic, atraumatic, good hearing acuity, moist mucous membranes Resp: CTAB, good air exchange, no accessory muscle use, no wheezes, crackles, rhonchi CVS: good distal perfusion x 4, tachycardic, with systolic ejection murmur GI: soft, NTTP, ND : no SPT, no CVAT, zimmerman catheter not present MSK: no pitting edema, no clubbing Neuro: non-focal, no sensory deficits, appropriate tone Psych: Depressed mood, anxious affect - Labs CBC & Chem 7: 09/17/20 06:46 09/17/20 06:46 Assessment and Plan Assessment: 1. Alcohol withdrawal syndrome 2. Alcohol abuse disorder 3. Polysubstance abuse disorder, including injectable drugs 4. Bipolar disorder 50-year-old woman with past medical history polysubstance abuse disorder including injectable drugs, bipolar disorder, alcohol abuse disorder presented with alcohol withdrawal syndrome in the setting of having ceased alcohol 1-1/2 days ago. Plan: - admit to telemetry - CIWA + Ativan PRN - thiamine/folate/MVI - alcohol cessation counseling - needs counseling regarding cessation of injectable drugs - low threshold for echo evaluation if patient becomes toxic appearing - psych consult, appreciate recs - patient would benefit from safe needle practice counseling Full Code
[2020-09-18] MEDS: SODIUM CHLORIDE 0.9% 1,000 ML IV SCH (17:47)
[2020-09-18] MEDS: OLANZapine 5 MG TAB PO SCH (22:17)
[2020-09-18] MEDS: MELATONIN 3 MG TABLET PO SCH (22:17)
[2020-09-18] MEDS: hydrOXYzine pamoate 25 MG CAP PO PRN (22:17)
[2020-09-19] MEDS: THIAMINE 100 MG TAB PO SCH ×2 (07:19→16:57)
[2020-09-19] MEDS: LORazepam 2 MG/ML INJ IV PRN ×8 (07:20→21:22)
[2020-09-19] MEDS: SODIUM CHLORIDE 0.9% 1,000 ML IV SCH (07:20)
[2020-09-19] MEDS: OLANZapine 2.5 MG TAB PO SCH (07:20)
--- NOTE | 2020-09-19 13:40 | P.PN ---
Subjective Progress Note Date: 09/19/20 No new complaints today, ongoing withdrawal. Objective - Vital Signs Vital signs: Vital Signs Temp 97.2 F L 09/19/20 07:50 Pulse 84 09/19/20 07:50 Resp 20 09/19/20 07:50 BP 131/81 09/19/20 07:50 Pulse Ox 94 L 09/19/20 07:50 Intake & Output 09/18/20 09/19/20 09/19/20 18:59 06:59 18:59 Other: Voiding Method Toilet Toilet Toilet # Voids 3 1 - Exam Gen: awake, alert HEENT: normocephalic, atraumatic, good hearing acuity, moist mucous membranes Resp: CTAB, good air exchange, no accessory muscle use, no wheezes, crackles, rhonchi CVS: good distal perfusion x 4, tachycardic, with systolic ejection murmur GI: soft, NTTP, ND : no SPT, no CVAT, zimmerman catheter not present MSK: no pitting edema, no clubbing Neuro: non-focal, no sensory deficits, appropriate tone Psych: Depressed mood, anxious affect - Labs CBC & Chem 7: 09/17/20 06:46 09/17/20 06:46 Assessment and Plan Assessment: 1. Alcohol withdrawal syndrome 2. Alcohol abuse disorder 3. Polysubstance abuse disorder, including injectable drugs 4. Bipolar disorder 50-year-old woman with past medical history polysubstance abuse disorder including injectable drugs, bipolar disorder, alcohol abuse disorder presented with alcohol withdrawal syndrome in the setting of having ceased alcohol 1-1/2 days ago. Plan: - admit to telemetry - CIWA + Ativan PRN - thiamine/folate/MVI - alcohol cessation counseling - needs counseling regarding cessation of injectable drugs - low threshold for echo evaluation if patient becomes toxic appearing - psych consult, appreciate recs - patient would benefit from safe needle practice counseling Full Code
[2020-09-19] MEDS: hydrOXYzine pamoate 25 MG CAP PO PRN (19:15)
[2020-09-19] MEDS: MELATONIN 3 MG TABLET PO SCH (19:15)
[2020-09-19] MEDS: OLANZapine 5 MG TAB PO SCH (19:15)
[2020-09-20] MEDS: SODIUM CHLORIDE 0.9% 1,000 ML IV SCH (03:07)
[2020-09-20] MEDS: LORazepam 2 MG/ML INJ IV PRN ×3 (03:32→08:01)
[2020-09-20 07:18] VITALS: BP 114/81; PULSE 97; RESP 17; TEMP 97.5
[2020-09-20] MEDS: THIAMINE 100 MG TAB PO SCH (08:01)
[2020-09-20] MEDS: OLANZapine 2.5 MG TAB PO SCH (08:02)
[2020-09-20] MEDS ORDERED: cloNIDine HCL 0.1 MG TAB PO SCH (09:00)
--- NOTE | 2020-09-20 17:24 | P.DS ---
Providers Date of admission: 09/18/20 07:50 Expected date of discharge: 09/20/20 Attending physician: Jaime Torres MD Consults: 09/16/20 13:35 Consult Physician Routine Consulting Provider: Evert Vides Consult Reason/Comments: Polysubstance abuse Do you want consulting provider notified?: Yes Primary care physician: Stated None Hospital Course: The patient is a 50-year-old female with a PMH of polysubstance abuse, bipolar disorder, and EtOH abuse who was admitted to the hospital for alcohol withdrawal. The patient was on CIWA protocol, receiving multivitamins, t hiamine, folate. Informed by the RN that the patient had left AGAINST MEDICAL ADVICE on the morning of 09/20 and had refused to wait for the field underwriter. I never physically saw the patient. Discharge diagnosis: Alcohol withdrawal; chronic alcohol abuse; polysubstance abuse; bipolar disorder; thrombocytopenia A total of 20 minutes of time were spent preparing this complex discharge summary. Plan - Discharge Summary Discharge Rx Participant: Yes New Discharge Prescriptions: No Action Buprenorphine HCl/Naloxone HCl [Suboxone 8 mg-2 mg Sl Film] 1 film SL TID levETIRAcetam [Keppra] 500 mg PO DIRECTED tiZANidine [Zanaflex] 4 mg PO Q6H PRN PRN Reason: Muscle Spasm Mirtazapine [Remeron] 45 mg PO HS hydrOXYzine pamoate [hydrOXYzine PAMOATE] 50 mg PO Q6H PRN PRN Reason: Anxiety Gabapentin 800 mg PO TID Furosemide [Lasix] 20 mg PO DAILY LORazepam [Ativan] 1 - 2 mg PO HS Discharge Medication List Buprenorphine HCl/Naloxone HCl [Suboxone 8 mg-2 mg Sl Film] 1 film SL TID 05/14/17 [History] levETIRAcetam [Keppra] 500 mg PO DIRECTED 06/18/17 [History] Furosemide [Lasix] 20 mg PO DAILY 09/11/20 [History] Gabapentin 800 mg PO TID 09/11/20 [History] LORazepam [Ativan] 1 - 2 mg PO HS 09/11/20 [History] Mirtazapine [Remeron] 45 mg PO HS 09/11/20 [History] hydrOXYzine pamoate [hydrOXYzine PAMOATE] 50 mg PO Q6H PRN 09/11/20 [History] tiZANidine [Zanaflex] 4 mg PO Q6H PRN 09/11/20 [History] Follow up Appointment(s)/Referral(s): None,Stated [Primary Care Provider] - 1-2 days Discharge Disposition: Left Against Medical Advice
== END 2020-09-20 09:35 | disposition left against medical advice (07) | DRG 894 ==
LOC: EC 10:18 → 4SSUR 12:30 → OBSVTOIN 09-18 07:50
PROVIDERS: ADMIT Internal Medicine; ATTEND Internal Medicine
DX: F10.239 Alcohol dependence with withdrawal, unspecified (principal); F11.10 Opioid abuse, uncomplicated; F10.229 Alcohol dependence with intoxication, unspecified; D69.6 Thrombocytopenia, unspecified; F17.200 Nicotine dependence, unspecified, uncomplicated; F31.9 Bipolar disorder, unspecified; F41.0 Panic disorder [episodic paroxysmal anxiety]; G40.909 Epilepsy, unspecified, not intractable, without status epilepticus; Z20.828 Contact with and (suspected) exposure to other viral communicable diseases; K21.9 Gastro-esophageal reflux disease without esophagitis; M19.90 Unspecified osteoarthritis, unspecified site; B19.20 Unspecified viral hepatitis C without hepatic coma; Y90.6 Blood alcohol level of 120-199 mg/100 ml; Z79.899 Other long term (current) drug therapy; Z80.1 Family history of malignant neoplasm of trachea, bronchus and lung; Z88.0 Allergy status to penicillin; Z98.890 Other specified postprocedural states
CPT/HCPCS: 36415; 71045; 80053; 80306; 80320; 81001; 83735; 85025; 87635; 96361; 96372; 96374; 99285

== ENCOUNTER 2020-10-11 17:42 | Inpatient (IN) | payer MEDICARE, OTHER ==
[2020-10-11] MEDS ORDERED: LORazepam 2 MG/ML INJ IV STA (18:07)
[2020-10-11] MEDS ORDERED: SODIUM CHLORIDE 0.9% 1,000 ML IV STA ×2 (18:07→20:28)
[2020-10-11] MEDS ORDERED: DIPH,PERTUS(ACELL)TETVAC-LF 0.5 ML VIAL IM ONE (18:10)
--- NOTE | 2020-10-11 18:10 | ED ---
General Adult HPI - General Chief complaint: Seizure Stated complaint: Seizure Time Seen by Provider: 10/11/20 17:55 Source: patient, EMS, RN notes reviewed Mode of arrival: EMS Limitations: no limitations - History of Present Illness Initial comments: Patient is a pleasant 50-year-old female presenting to the emergency department following reported seizure. Patient states she feels fatigued and dehydrated. Patient states she has not been eating or drinking well. Patient recently discontinued heroin and alcohol use. Patient states she does get seizures when she withdraws from alcohol. Patient requests medication to help her through withdrawal. - Related Data Home Medications Medication Instructions Recorded Confirmed Buprenorphine HCl/Naloxone HCl 1 film SL TID 05/14/17 10/11/20 [Suboxone 8 mg-2 mg Sl Film] levETIRAcetam [Keppra] 500 mg PO BID 06/18/17 10/11/20 Furosemide [Lasix] 20 mg PO DAILY 09/11/20 10/11/20 Gabapentin 800 mg PO TID 09/11/20 10/11/20 LORazepam [Ativan] 1 - 2 mg PO HS PRN 09/11/20 10/11/20 Mirtazapine [Remeron] 45 mg PO HS 09/11/20 10/11/20 hydrOXYzine pamoate [hydrOXYzine 50 mg PO Q6H PRN 09/11/20 10/11/20 PAMOATE] tiZANidine [Zanaflex] 4 mg PO Q6H PRN 09/11/20 10/11/20 Allergies Allergy/AdvReac Type Severity Reaction Status Date / Time Penicillins Allergy Severe Rash/Hives Verified 10/11/20 18:31 Review of Systems ROS Statement: Those systems with pertinent positive or pertinent negative responses have been documented in the HPI. ROS Other: All systems not noted in ROS Statement are negative. Constitutional: Denies: fever Eyes: Denies: eye pain ENT: Denies: ear pain Respiratory: Denies: cough, dyspnea Cardiovascular: Reports: palpitations. Denies: chest pain Endocrine: Reports: fatigue Gastrointestinal: Reports: nausea. Denies: abdominal pain Genitourinary: Denies: dysuria Skin: Denies: rash Neurological: Denies: headache Psychiatric: Reports: anxiety Past Medical History Past Medical History: Eye Disorder, GERD/Reflux, GI Bleed, Liver Disease, Musculoskeletal Disorder, Neurologic Disorder, Seizure Disorder Additional Past Medical History / Comment(s): SEIZURE FROM ETOH, SHINGLE 6 YERAS AGO,MURMUR,TORN CATILAGE IN KNEES PER PTS MOTHER IN LAW-PT HAD LIVER FAILURE IN PAST, HEP C- NEVER TX (PAST HEROIN USE),AND BULEMIA.ANXIETY/ DEPRESSION, PAST SUICIDE ATTEMPS. "IN OCTOBER DRANK RUBBING ALCOHOL". FAMILT STATED PT TAKES SUBOXONE TO HELP HER NOT DRINK AND FOR PAIN IN LEGS/KNEES. Hep C Positive History of Any Multi-Drug Resistant Organisms: MRSA Date of last positivie culture/infection: 04/20/16 MDRO Source:: SPUTUM Past Surgical History: Hernia Repair, Unable to Obtain, Uterine Ablation Additional Past Surgical History / Comment(s): NOVOSURE ENDOMETRIAL ABLATION. PER MOTHER PT HAD "THROAT BANDING DONE" Past Anesthesia/Blood Transfusion Reactions: No Reported Reaction Additional Past Anesthesia/Blood Transfusion Reaction / Comment(s): Pt received previous blood transfusion at [facility] per past medical record. Past Psychological History: Anxiety, Bipolar, Depression, Panic Disorder Smoking Status: Current every day smoker Past Alcohol Use History: Abuse, Daily Past Drug Use History: Cocaine, Heroin, IV Drug Use - Past Family History Father Family Medical History: No Reported History Mother Family Medical History: Cancer Additional Family Medical History / Comment(s): COLON AND LUNG CANCER- AT AGE 50 General Exam General appearance: alert, in no apparent distress Head exam: Present: normocephalic Eye exam: Present: normal appearance, PERRL ENT exam: Present: mucous membranes dry Neck exam: Present: normal inspection Respiratory exam: Present: normal lung sounds bilaterally Cardiovascular Exam: Present: regular rate, normal rhythm GI/Abdominal exam: Present: soft. Absent: tenderness Extremities exam: Present: normal inspection Neurological exam: Present: alert, oriented X3, CN II-XII intact. Absent: motor sensory deficit Psychiatric exam: Present: normal affect, normal mood Skin exam: Present: other (Small tong index and middle finger on the right hand that patient states is from cigarette tong accidentally) Course Vital Signs 10/11/20 10/11/20 10/11/20 17:45 19:45 19:53 Temperature 97.7 F 97.4 F L Pulse Rate 50 L 56 L Respiratory 18 16 Rate Blood Pressure 88/55 85/52 89/59 O2 Sat by Pulse 93 L Oximetry EKG Findings - EKG Comments: EKG Findings:: Sinus bradycardia 50. NJ 184. QRS 92. QT 560. QTC 510. Normal axis. Normal QRS. No acute ST change. Medical Decision Making - Medical Decision Making Patient reevaluated and resting comfortably in bed. Patient states she does not feel well still. Patient states her blood pressure normally does run low however is unclear what it is. Patient has had several blood pressures in the 80s. Patient has been given IV fluids. Patient updated on results and plan. Case was discussed in detail with Dr. squires, who will admit covering for hospital call. - Lab Data Result diagrams: 10/11/20 18:12 10/11/20 18:12 Lab Results 10/11/20 10/11/20 Range/Units 18:12 18:12 WBC 3.8 (3.8-10.6) k/uL RBC 4.01 (3.80-5.40) m/uL Hgb 13.0 (11.4-16.0) gm/dL Hct 36.5 (34.0-46.0) % MCV 91.1 (80.0-100.0) fL MCH 32.4 (25.0-35.0) pg MCHC 35.6 (31.0-37.0) g/dL RDW 13.3 (11.5-15.5) % Plt Count 37 L D (150-450) k/uL MPV 8.1 Neutrophils % 58 % Lymphocytes % 35 % Monocytes % 5 % Eosinophils % 1 % Basophils % 1 % Neutrophils # 2.2 (1.3-7.7) k/uL Lymphocytes # 1.3 (1.0-4.8) k/uL Monocytes # 0.2 (0-1.0) k/uL Eosinophils # 0.0 (0-0.7) k/uL Basophils # 0.0 (0-0.2) k/uL Manual Slide Review Performed RBC Morphology Normal Sodium 128 L (137-145) mmol/L Potassium 3.9 (3.5-5.1) mmol/L Chloride 90 L (98-107) mmol/L Carbon Dioxide 28 (22-30) mmol/L Anion Gap 10 mmol/L BUN 15 (7-17) mg/dL Creatinine 1.25 H (0.52-1.04) mg/dL Est GFR (CKD-EPI)AfAm 58 (>60 ml/min/1.73 sqM) Est GFR (CKD-EPI)NonAf 50 (>60 ml/min/1.73 sqM) Glucose 102 H (74-99) mg/dL Calcium 8.4 (8.4-10.2) mg/dL Magnesium 1.8 (1.6-2.3) mg/dL Total Bilirubin 2.1 H (0.2-1.3) mg/dL AST 2526 H (14-36) U/L ALT 725 H (4-34) U/L Alkaline Phosphatase 214 H (38-126) U/L Total Protein 7.3 (6.3-8.2) g/dL Albumin 3.7 (3.5-5.0) g/dL Serum Alcohol 248 H* mg/dL Disposition Clinical Impression: Alcohol withdrawal seizure, Hypotension Disposition: ADMITTED IP TO THIS HOSP Is patient prescribed a controlled substance at d/c from ED?: No Referrals: Galdino Obando MD [Primary Care Provider] - 1-2 days Decision Time: 21:13
[2020-10-11 18:23] LABS: Basophils % (A) 1 %; Eosinophils % (A) 1 %; HCT 36.5 % (34.0-46.0); Lymphocytes # (A) 1.3 k/uL (1.0-4.8); Lymphocytes % (A) 35 %; MCH 32.4 pg (25.0-35.0); MCHC 35.6 g/dL (31.0-37.0); MCV 91.1 fL (80.0-100.0); Mean Platelet Volume 8.1; Monocytes # (A) 0.2 k/uL (0-1.0); Monocytes % (A) 5 %; Neutrophils # (A) 2.2 k/uL (1.3-7.7); Neutrophils % (A) 58 %; RBC 4.01 m/uL (3.80-5.40); RDW 13.3 % (11.5-15.5); WBC 3.8 k/uL (3.8-10.6)
[2020-10-11 18:32] LABS: Albumin 3.7 g/dL (3.5-5.0); Calcium 8.4 mg/dL (8.4-10.2); Magnesium 1.8 mg/dL (1.6-2.3); Potassium 3.9 mmol/L (3.5-5.1); Total Bilirubin 2.1 mg/dL (0.2-1.3); Total Protein 7.3 g/dL (6.3-8.2)
[2020-10-11 19:04] LABS: Platelet Count 37 k/uL (150-450)
[2020-10-11] MEDS ORDERED: NALOXONE 0.4 MG/ML 1 ML VIAL IV PRN (21:13)
[2020-10-11] MEDS ORDERED: LORazepam 2 MG/ML INJ IV PRN ×2 (21:14)
[2020-10-11] MEDS ORDERED: THIAMINE 100 MG/ML 2 ML VIAL IM STA (21:14)
[2020-10-11] MEDS: SODIUM CHLORIDE 0.9% 1,000 ML IV SCH (21:15)
[2020-10-11 21:42] LABS: Appearance,Urine Clear (Clear); Bacteria,Urine Rare /hpf; Bilirubin,Urine Negative (Negative); Blood,Urine Small (Negative); Color,Urine Yellow; Glucose,Urine (UA) Negative (Negative); Hyaline Casts,Urine 6 /lpf (0-2); Ketones,Urine Negative (Negative); Leukocyte Esterase,Urine Negative (Negative); Mucus,Urine Rare /hpf; Nitrite,Urine Negative (Negative); Protein,Urine 1+ (Negative); RBC,Urine 2 /hpf (0-5); Specific Gravity,Urine 1.009 (1.001-1.035); Squamous Epithelial Cell,Urine <1 /hpf (0-4); Urobilinogen,Urine <2.0 mg/dL (<2.0); WBC,Urine 2 /hpf (0-5)
[2020-10-11] MEDS: LORazepam 2 MG/ML INJ IV PRN ×2 (21:43→22:56)
--- NOTE | 2020-10-12 00:11 | P.HPIM ---
History of Present Illness H&P Date: 10/11/20 Patient is a 50-year-old female with a PMH of EtOH abuse, withdrawal seizures, polysubstance abuse, and bipolar disorder who presented to the emergency room with complaints of alcohol withdrawal seizure. The patient notes that her last drink was earlier today when she had a large beer. She noted that she had been trying to quit the past few days and a few hours after her last beer this morning, felt like she may have had a seizure. The episode was unwitnessed and the patient doesn't remember much. Denied tongue biting or urinary incontinence. Reports feeling shaky and uneasy. Reports last using IV heroin a few days ago. Patient also reported a non-productive cough over the past few days. Denied chest discomfort, shortness of breath, nausea, vomiting, abdominal pain, or diarrhea. Also denied headache, visual disturbances, weakness, numbness, or tingling. The patient underwent an extensive evaluation in the emergency room. Upon presentation, her vital signs are revealed a BP of 88/55, pulse of 50, temp 97.7, and SpO2 90% on room air. Laboratory evaluation revealed an AST of 2526, ALT 725, alkaline phosphatase 214, platelet count 37, sodium 128, chloride 90, creatinine 1.25, alcohol level 248, coronavirus negative. CXR revealed bibasilar opacities suspicious for viral vs atypical pneumonia. Review of Systems Pertinent positives and negatives as discussed in HPI, a complete review of systems was performed and all other systems are negative. 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 "IN OCTOBER DRANK RUBBING ALCOHOL". FAMILT STATED PT TAKES SUBOXONE TO HELP HER NOT DRINK AND FOR PAIN IN LEGS/KNEES. Hep C Positive History of Any Multi-Drug Resistant Organisms: MRSA Date of last positivie culture/infection: 04/20/16 MDRO Source:: SPUTUM Past Surgical History: Hernia Repair, Unable to Obtain, Uterine Ablation Additional Past Surgical History / Comment(s): NOVOSURE ENDOMETRIAL ABLATION. PER MOTHER PT HAD "THROAT BANDING DONE" Past Anesthesia/Blood Transfusion Reactions: No Reported Reaction Additional Past Anesthesia/Blood Transfusion Reaction / Comment(s): Pt received previous blood transfusion at [facility] per past medical record. Past Psychological History: Anxiety, Bipolar, Depression, Panic Disorder Smoking Status: Current every day smoker Past Alcohol Use History: Abuse, Daily Past Drug Use History: Cocaine, Heroin, IV Drug Use - Past Family History Father Family Medical History: No Reported History Mother Family Medical History: Cancer Additional Family Medical History / Comment(s): COLON AND LUNG CANCER- AT AGE 50 Medications and Allergies Home Medications Medication Instructions Recorded Confirmed Type Buprenorphine HCl/Naloxone HCl 1 film SL TID 05/14/17 10/11/20 History [Suboxone 8 mg-2 mg Sl Film] levETIRAcetam [Keppra] 500 mg PO BID 06/18/17 10/11/20 History Furosemide [Lasix] 20 mg PO DAILY 09/11/20 10/11/20 History Gabapentin 800 mg PO TID 09/11/20 10/11/20 History LORazepam [Ativan] 1 - 2 mg PO HS PRN 09/11/20 10/11/20 History Mirtazapine [Remeron] 45 mg PO HS 09/11/20 10/11/20 History hydrOXYzine pamoate [hydrOXYzine 50 mg PO Q6H PRN 09/11/20 10/11/20 History PAMOATE] tiZANidine [Zanaflex] 4 mg PO Q6H PRN 09/11/20 10/11/20 History Allergies Allergy/AdvReac Type Severity Reaction Status Date / Time Penicillins Allergy Severe Rash/Hives Verified 10/11/20 18:31 Physical Exam Vitals: Vital Signs Temp Pulse Resp BP Pulse Ox 10/11/20 22:50 97.8 F 61 16 95 10/11/20 21:46 93/65 10/11/20 21:34 98/72 10/11/20 19:53 89/59 10/11/20 19:45 97.4 F L 56 L 16 85/52 10/11/20 17:45 97.7 F 50 L 18 88/55 93 L Intake and Output 10/11/20 10/11/20 10/12/20 14:59 22:59 06:59 Other: Weight 68.039 kg General: Chronically ill-appearing female, no distress, appears at stated age, normal weight Derm: no unusual rashes/lesions no unusual ecchymoses, warm, dry Head: atraumatic, normocephalic, symmetric Eyes: EOMI, no lid lag, anicteric sclera, pupils equal round reactive to light ENT: Nose and ears atraumatic, no thrush, no pharyngeal erythema Neck: No thyromegaly, no cervical lymphadenopathy, trachea midline, supple Mouth: no lip lesion, mucus membranes dry, no tongue bites noted Cardiovascular: S1S2 reg, no murmur, positive posterior tibial pulse bilateral, no edema, capillary refill less than 2 seconds Lungs: CTA bilateral, no rhonchi, no rales , no accessory muscle use Abdominal: soft, nontender to palpation, no guarding, no appreciable organomegaly, normal bowel sounds Ext: no gross muscle atrophy, muscle strength 4 out of 5 in all 4 extremities grossly, no contractures, Neuro: CN II-XI grossly intact, light touch intact all 4 extremities, mild outstretched hand tremor Psych: Lethargic, oriented to person, place, and time Results CBC & Chem 7: 10/11/20 18:12 10/11/20 18:12 Labs: Abnormal Lab Results - Last 24 Hours (Table) 10/11/20 10/11/20 10/11/20 Range/Units 18:12 18:12 21:34 Plt Count 37 L D (150-450) k/uL Sodium 128 L (137-145) mmol/L Chloride 90 L (98-107) mmol/L Creatinine 1.25 H (0.52-1.04) mg/dL Glucose 102 H (74-99) mg/dL Total Bilirubin 2.1 H (0.2-1.3) mg/dL AST 2526 H (14-36) U/L ALT 725 H (4-34) U/L Alkaline Phosphatase 214 H (38-126) U/L Urine Protein 1+ H (Negative) Urine Blood Small H (Negative) Urine Bacteria Rare H (None) /hpf Hyaline Casts 6 H (0-2) /lpf Urine Mucus Rare H (None) /hpf Serum Alcohol 248 H* mg/dL Assessment and Plan Plan: Alcohol abuse with withdrawal seizure -[facility] protocol -Thiamine, MV -Seizure, fall, aspiration precautions -Monitor electrolytes and replace as needed -Continue with IV fluids Thrombocytopenia -Likely due to significant alcohol abuse -Monitor for now -Strongly advised on the importance of cessation Abnormal CXR findings with hypoxia -Suspicious for COVID-19 though with negative rapid testing -Will treat empirically for now -Obtain repeat testing -Isolation precautions for now -Supplemental oxygen -Obtain Pro-calcitonin levels Acute kidney injury -Likely due to dehydration in setting of alcohol abuse -Monitor for now Hyponatremia -Likely due to dehydration -Continue the IV fluids and monitor DVT prophylaxis -IPCDs The patient is admitted with an anticipated greater than 2 midnight stay for evaluation of EtOH withdrawal CODE STATUS: Full Code Discussed with: Patient Anticipated discharge date: 2-[address]: Home A total of 40 minutes was spent on the care of this complex patient more than 50% of the time was spent in counseling and care coordination.
--- NOTE | 2020-10-12 02:54 | XR ---
EXAM: XR Chest, 1 View CLINICAL HISTORY: ITS.REASON XR Reason: low 02 saturation TECHNIQUE: Frontal view of the chest. COMPARISON: 09/17/2020 FINDINGS: Lungs: Subsegmental perihilar and bibasilar opacities noted bilaterally. No lobar consolidation. The pulmonary vasculature demonstrates no significant abnormality, accounting for slightly diminished lung volumes. Pleural space: Unremarkable. No pneumothorax. No large pleural effusion. Heart: Unremarkable. No cardiomegaly. Mediastinum: No significant abnormality identified. The trachea is midline. Bones/joints: Severe degenerative changes of the left shoulder, stable. No acute osseous abnormality. IMPRESSION: Subsegmental perihilar and bibasilar opacities noted bilaterally. Favor bilateral pneumonia, to include atypical bacterial and viral processes, over subsegmental atelectasis. No lobar consolidation. No large pleural effusion or pneumothorax.
[2020-10-12] MEDS ORDERED: SODIUM CHLORIDE 0.9% 1,000 ML IV ONE (02:59)
[2020-10-12 04:01] LABS: Basophils % (A) 1 %; Eosinophils % (A) 1 %; HCT 34.2 % (34.0-46.0); HGB 11.9 gm/dL (11.4-16.0); Lymphocytes # (A) 0.7 k/uL (1.0-4.8); Lymphocytes % (A) 28 %; MCH 32.4 pg (25.0-35.0); MCHC 34.8 g/dL (31.0-37.0); MCV 92.9 fL (80.0-100.0); Mean Platelet Volume 8.9; Monocytes # (A) 0.1 k/uL (0-1.0); Monocytes % (A) 4 %; Neutrophils # (A) 1.6 k/uL (1.3-7.7); Neutrophils % (A) 65 %; RBC 3.68 m/uL (3.80-5.40); RDW 13.5 % (11.5-15.5); WBC 2.4 k/uL (3.8-10.6)
[2020-10-12 04:04] LABS: Platelet Count 20 k/uL (150-450)
[2020-10-12 04:28] LABS: Albumin 3.1 g/dL (3.5-5.0); Calcium 7.5 mg/dL (8.4-10.2); Magnesium 1.6 mg/dL (1.6-2.3); Potassium 3.5 mmol/L (3.5-5.1); Total Bilirubin 1.7 mg/dL (0.2-1.3); Total Protein 6.4 g/dL (6.3-8.2)
[2020-10-12] MEDS: SODIUM CHLORIDE 0.9% 1,000 ML IV SCH ×2 (05:10→08:47)
[2020-10-12] MEDS: LORazepam 2 MG/ML INJ IV PRN ×3 (05:41→10:43)
[2020-10-12] MEDS: ASCORBIC ACID 500 MG TAB PO SCH (08:46)
[2020-10-12] MEDS: THIAMINE 100 MG TAB PO SCH ×2 (08:46→17:25)
[2020-10-12] MEDS: MULTIVITAMINS, THERA 1 EACH TAB PO SCH (08:46)
[2020-10-12] MEDS: ZINC SULFATE 220 MG CAP PO SCH (08:46)
[2020-10-12] MEDS ORDERED: dexAMETHasone 2 MG TAB PO SCH (09:00)
[2020-10-12] MEDS ORDERED: PANTOPRAZOLE 40 MG/10 ML VIAL IV SCH (09:00)
[2020-10-12] MEDS: CHOLECALCIFEROL 400 UNIT TAB PO SCH (10:43)
[2020-10-12 11:11] LABS: C Reactive Protein 3.2 mg/dL (0.0-0.8); Ferritin 2340.3 ng/mL (10.0-291.0)
[2020-10-12] MEDS: diazePAM 5 MG TAB PO SCH ×2 (12:43→20:15)
--- NOTE | 2020-10-12 12:51 | P.PN ---
Subjective Progress Note Date: 10/12/20 Patient was seen and examined by me today. Nursing staff informed me that she is requiring frequent doses of IV Ativan for withdrawal symptoms. Patient herself states feeling short of breath. She is having cough that is mostly nonproductive. Objective - Vital Signs Vital signs: Vital Signs Temp 99.3 F 10/12/20 10:00 Pulse 87 10/12/20 10:00 Resp 18 10/12/20 10:00 BP 105/67 10/12/20 10:00 Pulse Ox 93 L 10/12/20 10:00 Intake & Output 10/11/20 10/12/20 10/12/20 18:59 06:59 18:59 Intake Total 50 Balance 50 Weight 68.039 kg 68.039 kg Intake: Oral 50 Other: Voiding Method Bedpan Bedpan # Voids 1 - Exam General: The patient is awake and alert, in no distress Eye: there is normal conjunctiva bilaterally. Neck: The neck is supple, there is no JVD. Cardiovascular: Normal S1-S2, no S3-S4, no murmurs. Respiratory: Lungs with diffuse rhonchi and wheezing all over the chest Gastrointestinal: Abdomen is soft, nontender Musculoskeletal: There is no pedal edema. Neurological:. Speech is normal. Skin: Skin is warm and dry - Labs CBC & Chem 7: 10/12/20 03:51 10/12/20 03:51 Labs: Abnormal Lab Results - Last 24 Hours (Table) 10/11/20 10/11/20 10/11/20 Range/Units 18:12 18:12 21:34 WBC (3.8-10.6) k/uL RBC (3.80-5.40) m/uL Plt Count 37 L D (150-450) k/uL Lymphocytes # (1.0-4.8) k/uL D-Dimer (<0.60) mg/L FEU Sodium 128 L (137-145) mmol/L Chloride 90 L (98-107) mmol/L Creatinine 1.25 H (0.52-1.04) mg/dL Glucose 102 H (74-99) mg/dL Calcium (8.4-10.2) mg/dL Ferritin (10.0-291.0) ng/mL Total Bilirubin 2.1 H (0.2-1.3) mg/dL AST 2526 H (14-36) U/L ALT 725 H (4-34) U/L Alkaline Phosphatase 214 H (38-126) U/L Lactate Dehydrogenase (120-246) U/L C-Reactive Protein (0.0-0.8) mg/dL Albumin (3.5-5.0) g/dL Procalcitonin (0.02-0.09) ng/mL Urine Protein 1+ H (Negative) Urine Blood Small H (Negative) Urine Bacteria Rare H (None) /hpf Hyaline Casts 6 H (0-2) /lpf Urine Mucus Rare H (None) /hpf Serum Alcohol 248 H* mg/dL 10/12/20 10/12/20 10/12/20 Range/Units 03:51 03:51 03:51 WBC 2.4 L (3.8-10.6) k/uL RBC 3.68 L (3.80-5.40) m/uL Plt Count 20 L (150-450) k/uL Lymphocytes # 0.7 L (1.0-4.8) k/uL D-Dimer (<0.60) mg/L FEU Sodium 134 L (137-145) mmol/L Chloride (98-107) mmol/L Creatinine (0.52-1.04) mg/dL Glucose (74-99) mg/dL Calcium 7.5 L (8.4-10.2) mg/dL Ferritin 2340.3 H (10.0-291.0) ng/mL Total Bilirubin 1.7 H (0.2-1.3) mg/dL AST 1467 H (14-36) U/L ALT 560 H (4-34) U/L Alkaline Phosphatase 226 H (38-126) U/L Lactate Dehydrogenase 461 H (120-246) U/L C-Reactive Protein 3.2 H (0.0-0.8) mg/dL Albumin 3.1 L (3.5-5.0) g/dL Procalcitonin 0.61 H (0.02-0.09) ng/mL Urine Protein (Negative) Urine Blood (Negative) Urine Bacteria (None) /hpf Hyaline Casts (0-2) /lpf Urine Mucus (None) /hpf Serum Alcohol mg/dL 10/12/20 Range/Units 03:51 WBC (3.8-10.6) k/uL RBC (3.80-5.40) m/uL Plt Count (150-450) k/uL Lymphocytes # (1.0-4.8) k/uL D-Dimer 3.27 H (<0.60) mg/L FEU Sodium (137-145) mmol/L Chloride (98-107) mmol/L Creatinine (0.52-1.04) mg/dL Glucose (74-99) mg/dL Calcium (8.4-10.2) mg/dL Ferritin (10.0-291.0) ng/mL Total Bilirubin (0.2-1.3) mg/dL AST (14-36) U/L ALT (4-34) U/L Alkaline Phosphatase (38-126) U/L Lactate Dehydrogenase (120-246) U/L C-Reactive Protein (0.0-0.8) mg/dL Albumin (3.5-5.0) g/dL Procalcitonin (0.02-0.09) ng/mL Urine Protein (Negative) Urine Blood (Negative) Urine Bacteria (None) /hpf Hyaline Casts (0-2) /lpf Urine Mucus (None) /hpf Serum Alcohol mg/dL Assessment and Plan Assessment: Patient is a 50-year-old female with a PMH of EtOH abuse, withdrawal seizures, polysubstance abuse, and bipolar disorder who presented to the emergency room with complaints of alcohol withdrawal seizure. Reports last using IV heroin a few days ago. Patient also reported a non-productive cough over the past few days. Patient was evaluated in the ER and admitted to the hospital for further management of her medical problems noted below Denied chest discomfort, shortness of breath, nausea, vomiting, abdominal pain, or diarrhea. Also denied headache, visual disturbances, weakness, numbness, or tingling. The patient underwent an extensive evaluation in the emergency room. Upon presentation, her vital signs are revealed a BP of 88/55, pulse of 50, temp 97.7, and SpO2 90% on room air. Laboratory evaluation revealed an AST of 2526, ALT 725, alkaline phosphatase 214, platelet count 37, sodium 128, chloride 90, creatinine 1.25, alcohol level 248, coronavirus negative. CXR revealed bibasilar opacities suspicious for viral vs atypical pneumonia. Alcohol abuse with withdrawal seizure -[facility] protocol, I would start Valium 5 mg every 8 hours -Thiamine -Seizure, fall, aspiration precautions -Monitor electrolytes and replace as needed Acute hypoxic respiratory failure Bilateral pneumonia Acute COPD exacerbation -Started on Levaquin as patient has penicillin ALLERGY -Continue albuterol inhaler every 4 hours, Pulmicort twice daily,= -High suspicion clinically for Covid19, with elevated inflammatory markers, awaiting PCR test. Rapid test in the ER was negative. -Started on Decadron 6 mg daily day #2 -Elevated pro calcitonin level -Pulmonology consulted for further evaluation Acute alcoholic hepatitis -We will continue to monitor liver enzymes -Avoid hepatotoxic medications Pancytopenia, Thrombocytopenia -Likely due to significant alcohol abuse Acute kidney injury -due to dehydration in setting of alcohol abuse Hyponatremia -Likely due to dehydration -Improved with IV fluid hydration DVT prophylaxis -Subcu heparin
[2020-10-12] MEDS ORDERED: IPRATROPIUM-ALBUTEROL 3 ML NEB INHALATION PRN (13:22)
--- NOTE | 2020-10-12 13:29 | P.CNPUL ---
History of Present Illness Consult date: 10/12/20 Requesting physician: Marcin Murphy Reason for consult: dyspnea, cough, other Chief complaint: Shortness of breath, cough, alcohol withdrawal seizure History of present illness: 50-year-old white female patient with history of chronic EtOH abuse, and past history of heroin abuse, currently on Suboxone, patient is a chronic smoker, smokes half a pack a day on a regular basis. Patient presented to the hospital on 10/11/2020 following an episode of reported seizure. She states her last dri nk was yesterday morning and she states she only had 1 beer. She reports drinking about 5-6 beers on a regular basis. She has been falling, there are scattered bruises on her posterior upper chest, arms and legs. The patient reports haven't non-withdrawal seizures from alcohol withdrawals. She came into the hospital per EMS and she requests medication to help her through withdrawal. States she resides with her and her children. Other medical history includes previous history of GI bleeding requiring serial banding, and blood transfusions, GERD/reflux, anxiety/depression, previous history of suicide attempts. She has a history of hepatitis C infection. She has had done some lo w blood pressure readings in the emergency department, she was given some IV fluids. Lab work revealed a white blood cell count of 3.8, hemoglobin of 13, platelet count of 37, sodium of 128, potassium is 3.9, BUN of 15, creatinine is 1.25, AST with 2526, ALT is 725, alkaline phosphatase 114, serum alcohol level was 248 at the time of admission. Chest x-ray showing subsegmental perihilar and bibasilar opacities bilaterally stability of aspiration pneumonia, she denies any "19 exposure, she denies any fever or chills, however on today's exam she sounds quite congested, wheezy, diffuse rhonchi throughout, she is requiring supplemental oxygen, her O2 was infusing at 10 L/m however room air pulse ox was 80% and patient was placed on 2 L of oxygen, maintaining O2 sat at around 93- 95%, she is having low-grade fevers, but blood pressure stable. Better coverage was started in the form of Levaquin, she tested negative for COVID. Review of Systems All systems: negative Constitutional: Reports malaise, Reports weakness, Denies chills, Denies fever Eyes: denies blurred vision, denies pain Ears, nose, mouth and throat: Denies headache, Denies sore throat Cardiovascular: Denies chest pain, Denies shortness of breath Respiratory: Reports dyspnea, Reports wheezing, Denies cough Gastrointestinal: Denies abdominal pain, Denies diarrhea, Denies nausea, Denies vomiting Genitourinary: Denies dysuria, Denies hematuria Musculoskeletal: Denies myalgias Integumentary: Denies pruritus, Denies rash Neurological: Reports seizures, Reports weakness, Denies numbness Psychiatric: Denies anxiety, Denies depression Endocrine: Denies fatigue, Denies weight change Past Medical History Past Medical History: Eye Disorder, GERD/Reflux, GI Bleed, Liver Disease, Musculoskeletal Disorder, Neurologic Disorder, Seizure Disorder Additional Past Medical History / Comment(s): SEIZURE FROM ETOH, SHINGLE 6 YERAS AGO,MURMUR,TORN CATILAGE IN KNEES PER PTS MOTHER IN LAW-PT HAD LIVER FAILURE IN PAST, HEP C- NEVER TX (PAST HEROIN USE),AND BULEMIA.ANXIETY/ DEPRESSION, PAST SUICIDE ATTEMPS. "IN OCTOBER DRANK RUBBING ALCOHOL". FAMILT STATED PT TAKES SUBOXONE TO HELP HER NOT DRINK AND FOR PAIN IN LEGS/KNEES. Hep C Positive History of Any Multi-Drug Resistant Organisms: MRSA Date of last positivie culture/infection: 04/20/16 MDRO Source:: SPUTUM Past Surgical History: Hernia Repair, Uterine Ablation Additional Past Surgical History / Comment(s): NOVOSURE ENDOMETRIAL ABLATION. PT HAD "THROAT BANDING DONE" Past Anesthesia/Blood Transfusion Reactions: No Reported Reaction Additional Past Anesthesia/Blood Transfusion Reaction / Comment(s): Pt received previous blood transfusion at [facility] per past medical record. Past Psychological History: Anxiety, Bipolar, Depression, Panic Disorder Additional Psychological History / Comment(s): PAST SUICIDE ATTEMPT FROM OVERDO SE, HAS BEEN SEEN AT [facility]. UNABLE TO OBTAIN INFO FOR DEPRESSION SCREEN FROM PT FOR RISK SCREEN Smoking Status: Current every day smoker Past Alcohol Use History: Abuse, Daily Additional Past Alcohol Use History / Comment(s): PER FAMILY PT DRINKS MOST DAYS AT LEAST 4 24 OUNCE CANS OF BEER SOMETIME UP TO 6 AND IF SHE CAN GET IT WILL DRINK PINT VODKA .(FAMILY STATED SHE WILL SNEAK IT). Last drink morning of 10/11 Past Drug Use History: Cocaine, Heroin, IV Drug Use Additional Drug Use History / Comment(s): Patient admits to using cocaine and herion in the last 4 days. - Past Family History Father Family Medical History: No Reported History Mother Family Medical History: Cancer Additional Family Medical History / Comment(s): COLON AND LUNG CANCER- AT AGE 50 Medications and Allergies Home Medications Medication Instructions Recorded Confirmed Type Buprenorphine HCl/Naloxone HCl 1 film SL TID 05/14/17 10/11/20 History [Suboxone 8 mg-2 mg Sl Film] levETIRAcetam [Keppra] 500 mg PO BID 06/18/17 10/11/20 History Furosemide [Lasix] 20 mg PO DAILY 09/11/20 10/11/20 History Gabapentin 800 mg PO TID 09/11/20 10/11/20 History LORazepam [Ativan] 1 - 2 mg PO HS PRN 09/11/20 10/11/20 History Mirtazapine [Remeron] 45 mg PO HS 09/11/20 10/11/20 History hydrOXYzine pamoate [hydrOXYzine 50 mg PO Q6H PRN 09/11/20 10/11/20 History PAMOATE] tiZANidine [Zanaflex] 4 mg PO Q6H PRN 09/11/20 10/11/20 History Allergies Allergy/AdvReac Type Severity Reaction Status Date / Time Penicillins Allergy Severe Rash/Hives Verified 10/11/20 18:31 Physical Exam Vitals: Vital Signs Temp Pulse Pulse Resp BP BP Pulse Ox 10/12/20 10:00 99.3 F 87 18 105/67 93 L 10/12/20 06:00 99.0 F 74 99/61 93 L 10/12/20 05:05 20 10/12/20 04:26 74 20 93/60 92 L 10/12/20 03:58 70 22 89/50 96 10/12/20 03:45 99.0 F 76 22 88/55 97 10/12/20 03:23 91 L 10/12/20 03:18 73 22 10/12/20 02:50 65 20 88/52 92 L 10/12/20 02:00 88 L 10/12/20 01:51 65 20 90/60 95 10/12/20 00:50 67 18 80/48 95 10/12/20 00:30 88 L 10/11/20 22:50 97.8 F 61 16 95 10/11/20 21:46 93/65 10/11/20 21:34 98/72 10/11/20 19:53 89/59 10/11/20 19:45 97.4 F L 56 L 16 85/52 10/11/20 17:45 97.7 F 50 L 18 88/55 93 L Intake and Output 10/11/20 10/12/20 10/12/20 22:59 06:59 14:59 Intake Total 50 Balance 50 Intake: Oral 50 Other: Voiding Method Bedpan Bedpan # Voids 1 Weight 68.039 kg 68.039 kg GENERAL EXAM: Alert, very pleasant, 50-year-old white female comfortable in no apparent distress. HEAD: Normocephalic/atraumatic. EYES: Normal reaction of pupils, equal size. Conjunctiva pink, sclera white. NOSE: Clear with pink turbinates. THROAT: No erythema or exudates. NECK: No masses, no JVD, no thyroid enlargement, no adenopathy. CHEST: No chest wall deformity. Symmetrical expansion. LUNGS: Equal air entry with diffuse rhonchi and wheezes CVS: Regular rate and rhythm, normal S1 and S2, no gallops, no murmurs, no rubs ABDOMEN: Soft, nontender. No hepatosplenomegaly, normal bowel sounds, no guarding or rigidity. EXTREMITIES: No clubbing, no edema, no cyanosis, 2+ pulses and upper and lower extremities. MUSCULOSKELETAL: Muscle strength and tone normal. SPINE: No scoliosis or deformity SKIN: No rashes, patient has multiple bruises on her posterior upper back, bilateral arms, and trunk from falls CENTRAL NERVOUS SYSTEM: Alert and oriented -3. No focal deficits, tone is normal in all 4 extremities. PSYCHIATRIC: Alert and oriented -3. Appropriate affect. Intact judgment and insight. Results - Laboratory Findings CBC and BMP: 10/12/20 03:51 10/12/20 03:51 PT/INR, D-dimer D-Dimer 3.27 mg/L FEU (<0.60) H 10/12/20 03:51 Abnormal lab findings: Abnormal Labs 10/11/20 10/11/20 10/11/20 18:12 18:12 21:34 WBC RBC Plt Count 37 L D Lymphocytes # D-Dimer Sodium 128 L Chloride 90 L Creatinine 1.25 H Glucose 102 H Calcium Ferritin Total Bilirubin 2.1 H AST 2526 H ALT 725 H Alkaline Phosphatase 214 H Lactate Dehydrogenase C-Reactive Protein Albumin Procalcitonin Urine Protein 1+ H Urine Blood Small H Urine Bacteria Rare H Hyaline Casts 6 H Urine Mucus Rare H Serum Alcohol 248 H* 10/12/20 10/12/20 10/12/20 03:51 03:51 03:51 WBC 2.4 L RBC 3.68 L Plt Count 20 L Lymphocytes # 0.7 L D-Dimer Sodium 134 L Chloride Creatinine Glucose Calcium 7.5 L Ferritin 2340.3 H Total Bilirubin 1.7 H AST 1467 H ALT 560 H Alkaline Phosphatase 226 H Lactate Dehydrogenase 461 H C-Reactive Protein 3.2 H Albumin 3.1 L Procalcitonin 0.61 H Urine Protein Urine Blood Urine Bacteria Hyaline Casts Urine Mucus Serum Alcohol 10/12/20 03:51 WBC RBC Plt Count Lymphocytes # D-Dimer 3.27 H Sodium Chloride Creatinine Glucose Calcium Ferritin Total Bilirubin AST ALT Alkaline Phosphatase Lactate Dehydrogenase C-Reactive Protein Albumin Procalcitonin Urine Protein Urine Blood Urine Bacteria Hyaline Casts Urine Mucus Serum Alcohol - Diagnostic Findings Chest x-ray: report reviewed, image reviewed Assessment and Plan Plan: Assessment: #1. Acute hypoxic respiratory failure related to the possibility of aspiration pneumonia, chest x-ray showing bilateral lower lobe infiltrates, patient ruled out for COVID 19 infection #2. Acute alcohol withdrawal seizures #3. Acute alcohol intoxication, #4. Acute elevation of liver transaminases related to chronic alcoholic liver disease #5. History of hepatitis C #6. Previous history of GI bleeding with variceal banding and blood transfusions #7. History of anxiety and depression, with previous history of suicidal attempts #8. History of previous alcohol withdrawal seizures #9. GERD/reflux #10. History of MRSA pneumonia #11. Long history of tobacco dependence, chronic and ongoing #12. Hyponatremia, likely hypovolemic, improved with IV hydration #13. Plan: Continue with Levaquin for antibiotic coverage, continue IV hydration, continue CIWA scale, with Ativan, thiamine replacement, we'll start the patient on DuoNeb nebulized treatments, and Symbicort, patient tested negative for COVID, looking stop the oral Decadron, we'll obtain follow-up chest x-ray tomorrow. Maintain safety precautions. GI and DVT prophylaxis, we'll continue to follow I performed a history & physical examination of the patient and discussed their management with my nurse practitioner, Nany Olvera. I reviewed the nurse practitioner's note and agree with the documented findings and plan of care. Lung sounds are positive for diminished breath sounds. The findings and the imp ression was discussed with the patient. I attest to the documentation by the nurse practitioner. Time with Patient: Greater than 30
[2020-10-12] MEDS: guaiFENesin 600 MG TABLET.ER PO SCH ×2 (13:47→20:15)
[2020-10-12] MEDS: LEVOFLOXACIN 500MG-D5W PMX 500 MG in DEXTROSE/WATER 1 100ML.BAG IVPB SCH (13:48)
[2020-10-12] MEDS: IPRATROPIUM-ALBUTEROL 3 ML NEB INHALATION SCH ×2 (15:20→19:11)
[2020-10-12] MEDS ORDERED: ALBUTEROL HFA INHALER INHALATION SCH (16:00)
[2020-10-12] MEDS ORDERED: IPRATROPIUM-ALBUTEROL 3 ML NEB INHALATION SCH (16:00)
[2020-10-12] MEDS: SYMBICORT 160-4.5 MCG INHALER INHALATION SCH (19:11)
[2020-10-12] MEDS ORDERED: FLUTICASONE 110 MCG INHALER INHALATION SCH (20:00)
[2020-10-12] MEDS: HEPARIN SODIUM,PORCINE 5,000 UNIT/ML 1 ML VIAL SQ SCH (20:15)
[2020-10-13] MEDS ORDERED: ONDANSETRON 4 MG/2 ML VIAL IVP STA (06:27)
[2020-10-13 07:14] LABS: ALT 465 U/L (4-34); AST 739 U/L (14-36); African American GFR (CKD) >90 (>60 ml/min/1.73 sqM); Albumin 4.2 g/dL (3.5-5.0); Alkaline Phosphatase 337 U/L (38-126); Anion Gap 9 mmol/L; Blood Urea Nitrogen 8 mg/dL (7-17); Calcium 9.2 mg/dL (8.4-10.2); Carbon Dioxide 23 mmol/L (22-30); Chloride 103 mmol/L (98-107); Globulin 4.1 g/dL; Glucose 104 mg/dL (74-99); Non-African American GFR(CKD) >90 (>60 ml/min/1.73 sqM); Sodium 135 mmol/L (137-145); Total Bilirubin 3.2 mg/dL (0.2-1.3); Total Protein 8.3 g/dL (6.3-8.2)
[2020-10-13 07:17] LABS: Potassium 4.5 mmol/L (3.5-5.1)
[2020-10-13] MEDS: SYMBICORT 160-4.5 MCG INHALER INHALATION SCH ×2 (08:27→20:25)
[2020-10-13] MEDS: IPRATROPIUM-ALBUTEROL 3 ML NEB INHALATION SCH ×4 (08:27→20:26)
[2020-10-13] MEDS: THIAMINE 100 MG TAB PO SCH ×2 (08:42→15:12)
[2020-10-13] MEDS: MULTIVITAMINS, THERA 1 EACH TAB PO SCH (08:42)
[2020-10-13] MEDS: CHOLECALCIFEROL 400 UNIT TAB PO SCH (08:43)
[2020-10-13] MEDS: ASCORBIC ACID 500 MG TAB PO SCH (08:43)
[2020-10-13] MEDS: HEPARIN SODIUM,PORCINE 5,000 UNIT/ML 1 ML VIAL SQ SCH (08:43)
[2020-10-13] MEDS: guaiFENesin 600 MG TABLET.ER PO SCH ×2 (08:43→19:40)
[2020-10-13] MEDS: diazePAM 5 MG TAB PO SCH ×3 (08:43→20:00)
[2020-10-13] MEDS: ZINC SULFATE 220 MG CAP PO SCH (08:43)
[2020-10-13] MEDS: PANTOPRAZOLE 40 MG TABLET PO SCH (08:44)
[2020-10-13] MEDS: LORazepam 2 MG/ML INJ IV PRN ×5 (11:32→22:22)
[2020-10-13] MEDS: LEVOFLOXACIN 500MG-D5W PMX 500 MG in DEXTROSE/WATER 1 100ML.BAG IVPB SCH (14:07)
[2020-10-13] MEDS: SODIUM CHLORIDE 0.9% 1,000 ML IV SCH (14:08)
--- NOTE | 2020-10-13 14:21 | P.PN ---
Subjective Progress Note Date: 10/13/20 Principal diagnosis: Shortness of breath, cough, alcohol withdrawal seizure 50-year-old white female patient with history of chronic EtOH abuse, and past history of heroin abuse, currently on Suboxone, patient is a chronic smoker, smokes half a pack a day on a regular basis. Patient presented to the hospital on 10/11/2020 following an episode of reported seizure. She states her last drink was yesterday morning and she states she only had 1 beer. She reports drinking about 5-6 beers on a regular basis. She has been falling, there are scattered bruises on her posterior upper chest, arms and legs. The patient reports haven't non-withdrawal seizures from alcohol withdrawals. She came into the hospital per EMS and she requests medication to help her through withdrawal. States she resides with her and her children. Other medical history includes previous history of GI bleeding requiring serial banding, and blood transfusions, GERD/reflux, anxiety/depression, previous history of suicide attempts. She has a history of hepatitis C infection. She has had done some low blood pressure readings in the emergency department, she was given some IV fluids. Lab work revealed a white blood cell count of 3.8, hemoglobin of 13, platelet count of 37, sodium of 128, potassium is 3.9, BUN of 15, creatinine is 1.25, AST with 2526, ALT is 725, alkaline phosphatase 114, serum alcohol level was 248 at the time of admission. Chest x-ray showing subsegmental perihilar and bibasilar opacities bilaterally stability of aspiration pneumonia, she denies any "19 exposure, she denies any fever or chills, however on today's exam she sounds quite congested, wheezy, diffuse rhonchi throughout, she is requiring supplemental oxygen, her O2 was infusing at 10 L/m however room air pulse ox was 80% and patient was placed on 2 L of oxygen, maintaining O2 sat at around 93-9 5%, she is having low-grade fevers, but blood pressure stable. Better coverage was started in the form of Levaquin, she tested negative for COVID. On 10/13/2020 patient seen in follow-up on the general medical surgical floor, she is breathing easier, less congested and wheezy, still has some scattered wheezing and rhonchi, overall seems to be less dyspneic, she is awake and alert, she has some mild tremors, denies any headaches, mild nausea but no vomiting. Pulse ox is 98%, no seizure activity overnight, she has been afebrile, hemodynamically she is stable. COVID 19 was ruled out with PCR, Levaquin for antibiotic coverage. Objective - Vital Signs Vital signs: Vital Signs Temp 98.7 F 10/13/20 14:00 Pulse 90 10/13/20 14:00 Resp 18 10/13/20 14:00 BP 145/81 10/13/20 14:00 Pulse Ox 98 10/13/20 14:00 Intake & Output 10/12/20 10/13/20 10/13/20 18:59 06:59 18:59 Intake Total 1300 100 Balance 1300 100 Intake: Intake, IV Titration 700 Amount Levofloxacin 500Mg-D5w 100 Pmx 500 mg In Dextrose/ Water 1 100ml.bag @ 100 mls/hr IVPB Q24H [facility] Rx#: [id number] Sodium Chloride 0.9% 1, 600 000 ml @ 150 mls/hr IV . Q6H40M [facility] Rx#:[id number] Oral 600 100 Other: Voiding Method Bedpan Toilet Toilet # Voids 1 - Exam GENERAL EXAM: Alert, very pleasant, 50-year-old white female comfortable in no apparent distress. HEAD: Normocephalic/atraumatic. EYES: Normal reaction of pupils, equal size. Conjunctiva pink, sclera white. NOSE: Clear with pink turbinates. THROAT: No erythema or exudates. NECK: No masses, no JVD, no thyroid enlargement, no adenopathy. CHEST: No chest wall deformity. Symmetrical expansion. LUNGS: Equal air entry with diffuse rhonchi and wheezes CVS: Regular rate and rhythm, normal S1 and S2, no gallops, no murmurs, no rubs ABDOMEN: Soft, nontender. No hepatosplenomegaly, normal bowel sounds, no guarding or rigidity. EXTREMITIES: No clubbing, no edema, no cyanosis, 2+ pulses and upper and lower extremities. MUSCULOSKELETAL: Muscle strength and tone normal. SPINE: No scoliosis or deformity SKIN: No rashes, patient has multiple bruises on her posterior upper back, bilateral arms, and trunk from falls CENTRAL NERVOUS SYSTEM: Alert and oriented -3. No focal deficits, tone is normal in all 4 extremities. PSYCHIATRIC: Alert and oriented -3. Appropriate affect. Intact judgment and insight. - Labs CBC & Chem 7: 10/12/20 03:51 10/13/20 05:45 Labs: Abnormal Lab Results - Last 24 Hours (Table) 10/13/20 Range/Units 05:45 Sodium 135 L (137-145) mmol/L Glucose 104 H (74-99) mg/dL Total Bilirubin 3.2 H (0.2-1.3) mg/dL AST 739 H (14-36) U/L ALT 465 H (4-34) U/L Alkaline Phosphatase 337 H (38-126) U/L Total Protein 8.3 H (6.3-8.2) g/dL Assessment and Plan Plan: Assessment: #1. Acute hypoxic respiratory failure related to the possibility of aspiration pneumonia, chest x-ray showing bilateral lower lobe infiltrates, patient ruled out for COVID 19 infection #2. Acute alcohol withdrawal seizures #3. Acute alcohol intoxication, #4. Acute elevation of liver transaminases related to chronic alcoholic liver disease #5. History of hepatitis C #6. Previous history of GI bleeding with variceal banding and blood transfusions #7. History of anxiety and depression, with previous history of suicidal attempts #8. History of previous alcohol withdrawal seizures #9. GERD/reflux #10. History of MRSA pneumonia #11. Long history of tobacco dependence, chronic and ongoing #12. Hyponatremia, likely hypovolemic, improved with IV hydration #13. Plan: Continue with current antibiotic coverage, continue CIWA protocol, continue IV steroids, patient is breathing easier, less bronchospastic and congested, we'll repeat chest x-ray in the morning, GI and DVT prophylaxis, we'll follow I performed a history & physical examination of the patient and discussed their management with my nurse practitioner, Nany Olvera. I reviewed the nurse practitioner's note and agree with the documented findings and plan of care. Lung sounds are positive for diminished breath sounds. The findings and the impression was discussed with the patient. I attest to the documentation by the nurse practitioner. Time with Patient: Less than 30
--- NOTE | 2020-10-13 15:49 | P.PN ---
Subjective Progress Note Date: 10/13/20 Patient is having more evidence of withdrawal today mostly nausea and vomiting and restlessness. Patient is to me that she takes Suboxone at home. I discussed with nursing staff unfortunately Suboxone is not available in our hospital and nobody from her family members or friends can bring it. She otherwise denies any shortness of breath. Her lung sounds better today. Objective - Vital Signs Vital signs: Vital Signs Temp 98.7 F 10/13/20 14:00 Pulse 90 10/13/20 14:00 Resp 18 10/13/20 14:00 BP 145/81 10/13/20 14:00 Pulse Ox 98 10/13/20 14:00 Intake & Output 10/12/20 10/13/20 10/13/20 18:59 06:59 18:59 Intake Total 1300 100 Balance 1300 100 Intake: Intake, IV Titration 700 Amount Levofloxacin 500Mg-D5w 100 Pmx 500 mg In Dextrose/ Water 1 100ml.bag @ 100 mls/hr IVPB Q24H [facility] Rx#: [id number] Sodium Chloride 0.9% 1, 600 000 ml @ 150 mls/hr IV . Q6H40M [facility] Rx#:[id number] Oral 600 100 Other: Voiding Method Bedpan Toilet Toilet # Voids 1 - Exam General: The patient is awake and alert, in no distress Eye: there is normal conjunctiva bilaterally. Neck: The neck is supple, there is no JVD. Cardiovascular: Normal S1-S2, no S3-S4, no murmurs. Respiratory: Lungs clear to auscultation bilaterally Gastrointestinal: Abdomen is soft, nontender Musculoskeletal: There is no pedal edema. Neurological:. Speech is normal. Skin: Skin is warm and dry - Labs CBC & Chem 7: 10/12/20 03:51 10/13/20 05:45 Labs: Abnormal Lab Results - Last 24 Hours (Table) 10/13/20 Range/Units 05:45 Sodium 135 L (137-145) mmol/L Glucose 104 H (74-99) mg/dL Total Bilirubin 3.2 H (0.2-1.3) mg/dL AST 739 H (14-36) U/L ALT 465 H (4-34) U/L Alkaline Phosphatase 337 H (38-126) U/L Total Protein 8.3 H (6.3-8.2) g/dL Assessment and Plan Assessment: Patient is a 50-year-old female with a PMH of EtOH abuse, withdrawal seizures, polysubstance abuse, and bipolar disorder who presented to the emergency room with complaints of alcohol withdrawal seizure. Reports last using IV heroin a few days ago. Patient also reported a non-productive cough over the past few days. Patient was evaluated in the ER and admitted to the hospital for further management of her medical problems noted below Denied chest discomfort, shortness of breath, nausea, vomiting, abdominal pain, or diarrhea. Also denied headache, visual disturbances, weakness, numbness, or tingling. The patient underwent an extensive evaluation in the emergency room. Upon presentation, her vital signs are revealed a BP of 88/55, pulse of 50, temp 97.7, and SpO2 90% on room air. Laboratory evaluation revealed an AST of 2526, ALT 725, alkaline phosphatase 214, platelet count 37, sodium 128, chloride 90, creatinine 1.25, alcohol level 248, coronavirus negative. CXR revealed bibasilar opacities suspicious for viral vs atypical pneumonia. Alcohol abuse with withdrawal seizure -WA protocol, I started Valium 5 mg every 8 hours -Thiamine -Seizure, fall, aspiration precautions -Monitor electrolytes and replace as needed Acute hypoxic respiratory failure Bilateral pneumonia Acute COPD exacerbation -Started on Levaquin as patient has penicillin ALLERGY -Continue albuterol inhaler every 4 hours, Pulmicort twice daily, -ruled out Covid19. Decadron discontinued by pulmonology -Elevated pro calcitonin level -Pulmonology consulted, appreciate recommendation Acute alcoholic hepatitis -Liver enzymes improving We will continue to monitor liver enzymes -Avoid hepatotoxic medications Pancytopenia, Thrombocytopenia -Likely due to significant alcohol abuse Acute kidney injury -due to dehydration in setting of alcohol abuse -Resolved with IV fluid hydration History of opiate abuse on Suboxone as an outpatient -Unfortunately Suboxone is not available in our inpatient pharmacy. No family member can bring her medication to the hospital -I would start clonidine 0.1 mg 3 times a day for opiate withdrawal symptoms Hyponatremia -Likely due to dehydration -Improved with IV fluid hydration DVT prophylaxis -Discontinue Subcu heparin and use SCDs secondary to thrombocytopenia
[2020-10-13] MEDS: cloNIDine HCL 0.1 MG TAB PO SCH ×2 (16:05→19:40)
[2020-10-13] MEDS ORDERED: BUPRENORPHINE HCL SUBLINGUAL SCH (22:00)
[2020-10-13] MEDS ORDERED: [UNRECOGNIZED DRUG - OTHER] SUBLINGUAL SCH (22:00)
[2020-10-13] MEDS ORDERED: NALOXONE HCL SUBLINGUAL SCH (22:00)
[2020-10-14] MEDS: LORazepam 2 MG/ML INJ IV PRN ×3 (02:24→05:11)
[2020-10-14] MEDS: SODIUM CHLORIDE 0.9% 1,000 ML IV SCH (04:37)
[2020-10-14 06:48] LABS: Basophils % (A) 1 %; Eosinophils % (A) 0 %; HCT 33.9 % (34.0-46.0); HGB 11.9 gm/dL (11.4-16.0); Lymphocytes # (A) 1.1 k/uL (1.0-4.8); Lymphocytes % (A) 35 %; MCH 32.6 pg (25.0-35.0); MCHC 35.2 g/dL (31.0-37.0); MCV 92.6 fL (80.0-100.0); Mean Platelet Volume 9.6; Monocytes # (A) 0.2 k/uL (0-1.0); Monocytes % (A) 5 %; Neutrophils # (A) 1.7 k/uL (1.3-7.7); Neutrophils % (A) 57 %; RBC 3.66 m/uL (3.80-5.40); RDW 13.8 % (11.5-15.5)
[2020-10-14 06:49] LABS: Platelet Count 32 k/uL (150-450)
[2020-10-14 08:07] VITALS: BP 138/94; RESP 16; TEMP 98.2
[2020-10-14] MEDS: IPRATROPIUM-ALBUTEROL 3 ML NEB INHALATION SCH (08:09)
[2020-10-14] MEDS: SYMBICORT 160-4.5 MCG INHALER INHALATION SCH (08:09)
[2020-10-14 08:10] VITALS: PULSE 80
[2020-10-14] MEDS ORDERED: [UNRECOGNIZED DRUG - OTHER] SUBLINGUAL SCH (09:00)
[2020-10-14] MEDS ORDERED: LEVOFLOXACIN 500 MG TAB PO SCH (09:00)
[2020-10-14] MEDS ORDERED: NALOXONE HCL SUBLINGUAL SCH (09:00)
[2020-10-14] MEDS ORDERED: BUPRENORPHINE HCL SUBLINGUAL SCH (09:00)
[2020-10-14] MEDS: ZINC SULFATE 220 MG CAP PO SCH (09:06)
[2020-10-14] MEDS: cloNIDine HCL 0.1 MG TAB PO SCH (09:06)
[2020-10-14] MEDS: MULTIVITAMINS, THERA 1 EACH TAB PO SCH (09:06)
[2020-10-14] MEDS: PANTOPRAZOLE 40 MG TABLET PO SCH (09:06)
[2020-10-14] MEDS: THIAMINE 100 MG TAB PO SCH (09:06)
[2020-10-14] MEDS: guaiFENesin 600 MG TABLET.ER PO SCH (09:06)
[2020-10-14] MEDS: CHOLECALCIFEROL 400 UNIT TAB PO SCH (09:06)
[2020-10-14] MEDS: diazePAM 5 MG TAB PO SCH (09:06)
[2020-10-14] MEDS: ASCORBIC ACID 500 MG TAB PO SCH (09:06)
--- NOTE | 2020-10-14 09:10 | P.DS ---
Providers Date of admission: 10/11/20 21:13 Expected date of discharge: 10/14/20 Attending physician: Amada Bruno MD Consults: 10/12/20 03:06 Consult Physician Routine Consulting Provider: Papi Hernández Consult Reason/Comments: COVID Do you want consulting provider notified?: Yes, Notify in am Primary care physician: Galdino Obando Hospital Course: Patient is a 50-year-old female with a PMH of EtOH abuse, withdrawal seizures, polysubstance abuse, and bipolar disorder who presented to the emergency room with complaints of alcohol withdrawal seizure. Reports last using IV heroin a few days ago. Patient also reported a non-productive cough over the past few days. Patient was evaluated in the ER and admitted to the hospital for further management of her medical problems noted below Alcohol abuse with withdrawal seizure -Treated with CIWA protocol and Valium 5 mg every 8 hours -Counseled extensively to quit -No evidence of withdrawal on the day of discharge -Thiamine Acute hypoxic respiratory failure Bilateral pneumonia Acute COPD exacerbation -Started on Levaquin as patient has penicillin ALLERGY -We will finish 7 days course of antibiotic -Continue albuterol inhaler every 4 hours as needed, Pulmicort twice daily -ruled out Covid19. Acute alcoholic hepatitis -Liver enzymes improving -Avoid hepatotoxic medications including Tylenol Pancytopenia, Thrombocytopenia, chronic -Likely due to significant alcohol abuse Acute kidney injury -due to dehydration in setting of alcohol abuse -Resolved with IV fluid hydration History of opiate abuse on Suboxone as an outpatient -Resume all dose of Suboxone Hyponatremia -Likely due to dehydration -Improved with IV fluid hydration Patient will be discharged home in a stable condition. For further details abou t this hospitalization please refer to the electronic chart. Time spent on discharge > 30 minutes including counseling and coordination of care Patient Condition at Discharge: Stable Plan - Discharge Summary New Discharge Prescriptions: New Levofloxacin [Levaquin] 500 mg PO Q24H #4 tab guaiFENesin [Mucinex] 1,200 mg PO Q12HR PRN #14 tablet.er PRN Reason: Cough Budesonide-Formot 160-4.5 Mcg [Symbicort 160-4.5 Mcg Inhaler] 2 puff INHALATION RT-BID #1 inhaler Thiamine [Vitamin B-1] 100 mg PO BID-W/MEALS #14 tab Continue Buprenorphine HCl/Naloxone HCl [Suboxone 8 mg-2 mg Sl Film] 1 film SL TID levETIRAcetam [Keppra] 500 mg PO BID tiZANidine [Zanaflex] 4 mg PO Q6H PRN PRN Reason: Muscle Spasm Mirtazapine [Remeron] 45 mg PO HS hydrOXYzine pamoate [hydrOXYzine PAMOATE] 50 mg PO Q6H PRN PRN Reason: Anxiety Gabapentin 800 mg PO TID LORazepam [Ativan] 1 - 2 mg PO HS PRN PRN Reason: Anxiety Discontinued Furosemide [Lasix] 20 mg PO DAILY Discharge Medication List Buprenorphine HCl/Naloxone HCl [Suboxone 8 mg-2 mg Sl Film] 1 film SL TID 05/14/17 [History] levETIRAcetam [Keppra] 500 mg PO BID 06/18/17 [History] Gabapentin 800 mg PO TID 09/11/20 [History] LORazepam [Ativan] 1 - 2 mg PO HS PRN 09/11/20 [History] Mirtazapine [Remeron] 45 mg PO HS 09/11/20 [History] hydrOXYzine pamoate [hydrOXYzine PAMOATE] 50 mg PO Q6H PRN 09/11/20 [History] tiZANidine [Zanaflex] 4 mg PO Q6H PRN 09/11/20 [History] Budesonide-Formot 160-4.5 Mcg [Symbicort 160-4.5 Mcg Inhaler] 2 puff INHALATION RT-BID #1 inhaler 10/14/20 [Rx] Levofloxacin [Levaquin] 500 mg PO Q24H #4 tab 10/14/20 [Rx] Thiamine [Vitamin B-1] 100 mg PO BID-W/MEALS #14 tab 10/14/20 [Rx] guaiFENesin [Mucinex] 1,200 mg PO Q12HR PRN #14 tablet.er 10/14/20 [Rx] Follow up Appointment(s)/Referral(s): Galdino Obando MD [Primary Care Provider] - 3 Days Discharge Disposition: HOME SELF-CARE
[2020-10-14 11:33] LABS: African American GFR (CKD) 99.6 (60.0-200.0); Albumin 3.6 g/dL (3.80-4.90); Albumin/Globulin Ratio 1.24 (1.60-3.17); Anion Gap 11.1 mmol/L (4.00-12.00); BUN/Creat Ratio 8.75 Ratio (12.00-20.00); Calcium 8.6 mg/dL (8.7-10.3); Carbon Dioxide 25.9 mmol/L (21.6-31.8); Globulin 2.9 g/dL (1.6-3.3); Potassium 3.6 mmol/L (3.5-5.5); Total Protein 6.5 g/dL (6.2-8.2)
--- NOTE | 2020-10-14 12:51 | P.PN ---
Subjective Progress Note Date: 10/14/20 Principal diagnosis: Shortness of breath, cough, alcohol withdrawal seizure 50-year-old white female patient with history of chronic EtOH abuse, and past history of heroin abuse, currently on Suboxone, patient is a chronic smoker, smokes half a pack a day on a regular basis. Patient presented to the hospital on 10/11/2020 following an episode of reported seizure. She states her last drink was yesterday morning and she states she only had 1 beer. She reports drinking about 5-6 beers on a regular basis. She has been falling, there are scattered bruises on her posterior upper chest, arms and legs. The patient reports haven't non-withdrawal seizures from alcohol withdrawals. She came into the hospital per EMS and she requests medication to help her through withdrawal. States she resides with her and her children. Other medical history includes previous history of GI bleeding requiring serial banding, and blood transfusions, GERD/reflux, anxiety/depression, previous history of suicide attempts. She has a history of hepatitis C infection. She has had done some low blood pressure readings in the emergency department, she was given some IV fluids. Lab work revealed a white blood cell count of 3.8, hemoglobin of 13, platelet count of 37, sodium of 128, potassium is 3.9, BUN of 15, creatinine is 1.25, AST with 2526, ALT is 725, alkaline phosphatase 114, serum alcohol level was 248 at the time of admission. Chest x-ray showing subsegmental perihilar and bibasilar opacities bilaterally stability of aspiration pneumonia, she denies any "19 exposure, she denies any fever or chills, however on today's exam she sounds quite congested, wheezy, diffuse rhonchi throughout, she is requiring supplemental oxygen, her O2 was infusing at 10 L/m however room air pulse ox was 80% and patient was placed on 2 L of oxygen, maintaining O2 sat at around 93-9 5%, she is having low-grade fevers, but blood pressure stable. Better coverage was started in the form of Levaquin, she tested negative for COVID. On 10/13/2020 patient seen in follow-up on the general medical surgical floor, she is breathing easier, less congested and wheezy, still has some scattered wheezing and rhonchi, overall seems to be less dyspneic, she is awake and alert, she has some mild tremors, denies any headaches, mild nausea but no vomiting. Pulse ox is 98%, no seizure activity overnight, she has been afebrile, hemodynamically she is stable. COVID 19 was ruled out with PCR, Levaquin for antibiotic coverage. On 10/14/2020 patient seen in follow-up on a general medical surgical floor. Patient sitting up on it is a bit, feeling and sounding much better, less progress spastic on dyspnea, she is on room air, no tremors on today's exam, no hallucinations, no headaches, denies any shortness of breath, room air pulse ox is 96%, hemodynamically she is stable, breathing comfortably, she's been afebrile. These labs have been reviewed, white count is 3.0, hemoglobin is 11. 9, platelet count is down to come up with that and is up to 32 on today's labs, sodium is stable at 134, the rest of electrolytes and renal profile were unremarkable. She's had no acute events overnight, no seizure activity. She's been treated with antibiotics form of Levaquin Objective - Vital Signs Vital signs: Vital Signs Temp 98.2 F 10/14/20 08:06 Pulse 80 10/14/20 08:20 Resp 16 10/14/20 08:06 BP 138/94 10/14/20 08:06 Pulse Ox 96 10/14/20 08:06 Intake & Output 10/13/20 10/14/20 10/14/20 18:59 06:59 18:59 Other: Voiding Method Toilet Toilet # Voids 5 2 - Exam GENERAL EXAM: Alert, very pleasant, 50-year-old white female comfortable in no apparent distress. On room air, with a pulse ox of 96% HEAD: Normocephalic/atraumatic. EYES: Normal reaction of pupils, equal size. Conjunctiva pink, sclera white. NOSE: Clear with pink turbinates. THROAT: No erythema or exudates. NECK: No masses, no JVD, no thyroid enlargement, no adenopathy. CHEST: No chest wall deformity. Symmetrical expansion. LUNGS: Equal air entry with diffuse rhonchi and wheezes CVS: Regular rate and rhythm, normal S1 and S2, no gallops, no murmurs, no rubs ABDOMEN: Soft, nontender. No hepatosplenomegaly, normal bowel sounds, no guarding or rigidity. EXTREMITIES: No clubbing, no edema, no cyanosis, 2+ pulses and upper and lower extremities. MUSCULOSKELETAL: Muscle strength and tone normal. SPINE: No scoliosis or deformity SKIN: No rashes, patient has multiple bruises on her posterior upper back, bilateral arms, and trunk from falls CENTRAL NERVOUS SYSTEM: Alert and oriented -3. No focal deficits, tone is normal in all 4 extremities. PSYCHIATRIC: Alert and oriented -3. Appropriate affect. Intact judgment and insight. - Labs CBC & Chem 7: 10/14/20 06:31 10/14/20 06:31 Labs: Abnormal Lab Results - Last 24 Hours (Table) 10/14/20 10/14/20 Range/Units 06:31 06:31 WBC 3.0 L (3.8-10.6) k/uL RBC 3.66 L (3.80-5.40) m/uL Hct 33.9 L (34.0-46.0) % Plt Count 32 L D (150-450) k/uL Sodium 134 L (135-145) mmol/L BUN 7.0 L (9.0-27.0) mg/dL BUN/Creatinine Ratio 8.75 L (12.00-20.00) Ratio Calcium 8.6 L (8.7-10.3) mg/dL Total Bilirubin 2.0 H (0.3-1.2) mg/dL AST 241 H (13-35) U/L ALT 298 H (8-44) U/L Alkaline Phosphatase 259 H (41-126) U/L Albumin 3.60 L (3.80-4.90) g/dL Albumin/Globulin Ratio 1.24 L (1.60-3.17) g/dL Assessment and Plan Plan: Assessment: #1. Acute hypoxic respiratory failure related to the possibility of aspiration pneumonia, chest x-ray showing bilateral lower lobe infiltrates, patient ruled out for COVID 19 infection #2. Acute alcohol withdrawal seizures #3. Acute alcohol intoxication on admission #4. Acute elevation of liver transaminases related to chronic alcoholic liver disease #5. History of hepatitis C #6. Previous history of GI bleeding with variceal banding and blood transfusions #7. History of anxiety and depression, with previous history of suicidal attempts #8. History of previous alcohol withdrawal seizures #9. GERD/reflux #10. History of MRSA pneumonia #11. Long history of tobacco dependence, chronic and ongoing #12. Hyponatremia, likely hypovolemic, improved with IV hydration #13. Plan: Patient is much better, breathing easier, no fever or chills, no altered mentation, no seizure activity, she is on room air, maintaining stable O2 saturations, she is being discharged home today, and she will finish outpatient course of oral antibiotics, she will go home on Symbicort. No seizure activity, no tremors, no signs of active delirium tremens. Stable for discharge from pulmonary perspective I performed a history & physical examination of the patient and discussed their management with my nurse practitioner, Nany Olvera. I reviewed the nurse practitioner's note and agree with the documented findings and plan of care. Lung sounds are positive for diminished breath sounds. The findings and the impression was discussed with the patient. I attest to the documentation by the nurse practitioner. Time with Patient: Less than 30
--- NOTE | 2020-10-18 11:54 | XR ---
EXAMINATION TYPE: XR chest 2V DATE OF EXAM: 10/18/2020 COMPARISON: Prior chest x-ray 10/12/2020 CT 05/13/2017 HISTORY: Low oxygen saturation TECHNIQUE: Frontal and lateral views of the chest are obtained. FINDINGS: There is improvement in lung aeration, lung volume. Arthropathy noted within the left shou lder. Cardiac mediastinal silhouette is within normal limits. No evident airspace disease, pneumothor ax, or pleural effusion. Thoracic spondylosis is present. There is a calcified nodule in the left upp er lobe, possibly right upper lobe. IMPRESSION: No acute cardiopulmonary process. Probable old granulomatous disease
== END 2020-10-14 11:08 | disposition home or self-care (01) | DRG 896 ==
LOC: EC 17:42 → 4SSUR 21:13
PROVIDERS: ADMIT Internal Medicine; ATTEND Internal Medicine
DX: F10.239 Alcohol dependence with withdrawal, unspecified (principal); J96.01 Acute respiratory failure with hypoxia; J18.9 Pneumonia, unspecified organism; E87.1 Hypo-osmolality and hyponatremia; J44.1 Chronic obstructive pulmonary disease with (acute) exacerbation; J44.0 Chronic obstructive pulmonary disease with (acute) lower respiratory infection; N17.9 Acute kidney failure, unspecified; D61.818 Other pancytopenia; Z20.828 Contact with and (suspected) exposure to other viral communicable diseases; Y90.8 Blood alcohol level of 240 mg/100 ml or more; K21.9 Gastro-esophageal reflux disease without esophagitis; F41.0 Panic disorder [episodic paroxysmal anxiety]; F31.9 Bipolar disorder, unspecified; F17.210 Nicotine dependence, cigarettes, uncomplicated; E86.1 Hypovolemia; E86.0 Dehydration; K70.10 Alcoholic hepatitis without ascites; G40.909 Epilepsy, unspecified, not intractable, without status epilepticus; F11.10 Opioid abuse, uncomplicated; Z91.5 Personal history of self-harm; Z88.0 Allergy status to penicillin; Z87.01 Personal history of pneumonia (recurrent); Z86.14 Personal history of Methicillin resistant Staphylococcus aureus infection; Z80.1 Family history of malignant neoplasm of trachea, bronchus and lung; Z98.890 Other specified postprocedural states; Z79.899 Other long term (current) drug therapy; Z79.51 Long term (current) use of inhaled steroids
CPT/HCPCS: 36415; 71045; 71046; 80053; 80320; 81001; 82728; 83605; 83615; 83735; 84145; 85025; 85379; 86140; 87635; 90471; 90715; 93005; 94640; 96361; 96372; 96374; 96376; 99285

== ENCOUNTER 2022-04-21 12:41 | Inpatient (IN) | payer MEDICARE, OTHER ==
[2022-04-21] MEDS ORDERED: SODIUM CHLORIDE 0.9% 1,000 ML IV STA (12:50)
--- NOTE | 2022-04-21 12:52 | ED ---
General Adult HPI - General Stated complaint: Chest pain Time Seen by Provider: 04/21/22 12:45 - History of Present Illness Initial comments: Dictation was produced using [employer] dictation software. please excuse any grammatical, word or spelling errors. Chief Complaint: 51-year-old female presents to the emergency department for altered mental status History of Present Illness: Is 51-year-old female she is brought in by EMS. History of present illness obtained from EMS exclusively. She is here to the emergency department for altered mental status. EMS was concerned of acute stroke. She was last seen perhaps may be normal at 7 AM this morning however she has been seen behavior he abnormally over the last 2-3 days. EMS staff is familiar with patient and she has known history of overdose and illicit drug dependence. EMS did note there were several alcoholic beverage cans and bottles at the scene. Upon initial EMS evaluation patient was not having purposeful movements. There is suspicion that patient is having left-sided facial droop and paralysis to the left upper extremity. There is no clear exact time of onset or last normal period Unable to obtain review of systems significant her to mental status. PHYSICAL EXAM: General Impression: Alert and oriented x1/4, able to answer her name correctly, patient does show purposeful movements, lethargic, smells of beer HEENT: Normocephalic atraumatic, extra-ocular movements intact, pupils equal and reactive to light bilaterally, dry mucous membranes Cardiovascular: Heart regular rate and rhythm Chest: Able to complete full sentences, no retractions, no tachypnea Abdomen: abdomen soft, non-tender, non-distended, no organomegaly Musculoskeletal: Pulses present and equal in all extremities, no peripheral edema Motor: Massage it was grossly, normal bulk and tone Neurological: No asymmetry to the feces, patient moves all extremity is grossly, unable to measure NIH due to patient's lethargy Skin: Intact with no visualized rashes ED course: 51-year-old female with history of drug and alcohol abuse presents to the emergency department for altered mental status. EMS reports perhaps symptoms of stroke. Patient does not have any focal neurologic findings and instead presents with global weakness. She is lethargic. Code stroke was paged prior to initial evaluation due to EMS reports of focal neurologic deficits as explained as left-sided facial droop and left arm weakness. However upon initial evaluation patient is globally weak and findings are nonfocal. There is some sufficient however of hemorrhagic stroke. Spoke with stroke neurologist, Leo Strange who is agreeable with plan. Lavatory evaluation obtained. CBC shows thrombocytopenia with a plate count of 87. Patient has history of thrombocytopenia. Coag panel is negative. Venous b lood gas shows patient 7.4, no severe acidosis bicarbs normal. Sodium is 123, so is likely hyponatremia secondary to severe alcohol intoxication. Serum alcohol is 495. Tox labs negative. Troponins 0.05. Lactic acid level is 2.6. Osmolality 395 blood osmolar gap is measured as 4.0. No concerns for toxic alcohol ingestion. Computed tomography scan of the brain shows no acute processes. Chest x-ray is nonacute. Patient be admitted for severe alcohol intoxication with electrolyte derangement. [facility] Patient has elevated troponin but too inebriated to report if she has any ACS- type symptoms. Her EKG does not show any signs of ischemia or infarction. Patient given rectal aspirin. EKG interpretation: Ventricular rate 89, sinus rhythm,. Interval 175, QS 100, QTC 449. No AK prolongation, no QTC prolongation, no ST or T-wave changes noted. Overall, this EKG is unremarkable - Related Data Home Medications Medication Instructions Recorded Confirmed Buprenorphine HCl/Naloxone HCl 1 film SUBLINGUAL BID 05/14/17 04/21/22 [Suboxone 8 mg-2 mg Sl Film] levETIRAcetam [Keppra] 500 mg PO BID 06/18/17 04/21/22 hydrOXYzine pamoate [hydrOXYzine 50 mg PO Q6H 09/11/20 04/21/22 PAMOATE] tiZANidine [Zanaflex] 8 mg PO TID 09/11/20 04/21/22 Furosemide [Lasix] 20 mg PO DAILY 04/21/22 04/21/22 Gabapentin 1,200 mg PO TID 04/21/22 04/21/22 Spironolactone 25 mg PO DAILY 04/21/22 04/21/22 Allergies Allergy/AdvReac Type Severity Reaction Status Date / Time Penicillins Allergy Severe Rash/Hives Verified 04/21/22 12:53 Review of Systems ROS Statement: Those systems with pertinent positive or pertinent negative responses have been documented in the HPI. ROS Other: All systems not noted in ROS Statement are negative. 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 "IN OCTOBER DRANK RUBBING ALCOHOL". FAMILT STATED PT TAKES SUBOXONE TO HELP HER NOT DRINK AND FOR PAIN IN LEGS/KNEES. Hep C Positive History of Any Multi-Drug Resistant Organisms: MRSA Date of last positivie culture/infection: 04/20/16 MDRO Source:: SPUTUM Past Surgical History: Hernia Repair, Uterine Ablation Additional Past Surgical History / Comment(s): NOVOSURE ENDOMETRIAL ABLATION. PT HAD "THROAT BANDING DONE" Past Anesthesia/Blood Transfusion Reactions: No Reported Reaction Additional Past Anesthesia/Blood Transfusion Reaction / Comment(s): Pt received previous blood transfusion at [facility] per past medical record. Past Psychological History: Anxiety, Bipolar, Depression, Panic Disorder Additional Psychological History / Comment(s): PAST SUICIDE ATTEMPT FROM OVERDOSE, HAS BEEN SEEN AT [facility]. UNABLE TO OBTAIN INFO FOR DEPRESSION SCREEN FROM PT FOR RISK SCREEN Smoking Status: Current every day smoker Past Alcohol Use History: Abuse, Daily Additional Past Alcohol Use History / Comment(s): PER FAMILY PT DRINKS MOST DAYS AT LEAST 4 24 OUNCE CANS OF BEER SOMETIME UP TO 6 AND IF SHE CAN GET IT WILL DRINK PINT VODKA .(FAMILY STATED SHE WILL SNEAK IT). Last drink morning of 10/11 Past Drug Use History: Cocaine, Heroin, IV Drug Use Additional Drug Use History / Comment(s): Patient admits to using cocaine and herion in the last 4 days. - Past Family History Father Family Medical History: No Reported History Mother Family Medical History: Cancer Additional Family Medical History / Comment(s): COLON AND LUNG CANCER- AT AGE 50 Course Vital Signs 04/21/22 04/21/22 04/21/22 12:43 12:50 13:00 Temperature 98.6 F Pulse Rate 90 82 Respiratory 12 18 Rate Blood Pressure 111/73 111/73 O2 Sat by Pulse 91 L 90 L Oximetry 04/21/22 04/21/22 13:30 14:00 Temperature Pulse Rate 87 96 Respiratory 19 16 Rate Blood Pressure 121/70 116/72 O2 Sat by Pulse Oximetry Medical Decision Making - Lab Data Result diagrams: 04/21/22 13:33 04/21/22 13:33 Lab Results 04/21/22 04/21/22 04/21/22 Range/Units 12:46 13:33 13:33 WBC 3.9 (3.8-10.6) k/uL RBC 4.22 (3.80-5.40) m/uL Hgb 13.7 (11.4-16.0) gm/dL Hct 39.0 (34.0-46.0) % MCV 92.4 (80.0-100.0) fL MCH 32.4 (25.0-35.0) pg MCHC 35.1 (31.0-37.0) g/dL RDW 16.3 H (11.5-15.5) % Plt Count 87 L (150-450) k/uL MPV 9.1 Neutrophils % 59 % Lymphocytes % 31 % Monocytes % 7 % Eosinophils % 0 % Basophils % 1 % Neutrophils # 2.3 (1.3-7.7) k/uL Lymphocytes # 1.2 (1.0-4.8) k/uL Monocytes # 0.3 (0-1.0) k/uL Eosinophils # 0.0 (0-0.7) k/uL Basophils # 0.0 (0-0.2) k/uL Manual Slide Review Performed Anisocytosis Slight PT (9.0-12.0) sec INR (<1.2) APTT (22.0-30.0) sec VBG pH (7.31-7.41) VBG pCO2 (37-51) mmHg VBG HCO3 (24-28) mmol/L Sodium (137-145) mmol/L Potassium (3.5-5.1) mmol/L Chloride (98-107) mmol/L Carbon Dioxide (22-30) mmol/L Anion Gap mmol/L BUN (7-17) mg/dL Creatinine (0.52-1.04) mg/dL Est GFR (CKD-EPI)AfAm (>60 ml/min/1.73 sqM) Est GFR (CKD-EPI)NonAf (>60 ml/min/1.73 sqM) Glucose (74-99) mg/dL POC Glucose (mg/dL) 106 (70-110) mg/dL POC Glu Diamond Assorter ID Rebecca Naidu Osmolality ([id number]) mosm/kg Plasma Lactic Acid Mariusz (0.7-2.0) mmol/L Calcium (8.4-10.2) mg/dL Magnesium (1.6-2.3) mg/dL Total Bilirubin (0.2-1.3) mg/dL AST (14-36) U/L ALT (4-34) U/L Alkaline Phosphatase (38-126) U/L Ammonia (<30) umol/L Troponin I (0.000-0.034) ng/mL Total Protein (6.3-8.2) g/dL Albumin (3.5-5.0) g/dL Lipase (23-300) U/L TSH (0.465-4.680) mIU/L Salicylates mg/dL Urine Opiates Screen Not Detected (NotDetected) Ur Oxycodone Screen Not Detected (NotDetected) Urine Methadone Screen Not Detected (NotDetected) Ur Propoxyphene Screen Not Detected (NotDetected) Acetaminophen ug/mL Ur Barbiturates Screen Not Detected (NotDetected) U Tricyclic Antidepress Not Detected (NotDetected) Ur Phencyclidine Scrn Not Detected (NotDetected) Ur Amphetamines Screen Not Detected (NotDetected) U Methamphetamines Scrn Not Detected (NotDetected) U Benzodiazepines Scrn Not Detected (NotDetected) Urine Cocaine Screen Not Detected (NotDetected) U Marijuana (THC) Screen Not Detected (NotDetected) Serum Alcohol mg/dL 04/21/22 04/21/22 04/21/22 Range/Units 13:33 13:33 13:33 WBC (3.8-10.6) k/uL RBC (3.80-5.40) m/uL Hgb (11.4-16.0) gm/dL Hct (34.0-46.0) % MCV (80.0-100.0) fL MCH (25.0-35.0) pg MCHC (31.0-37.0) g/dL RDW (11.5-15.5) % Plt Count (150-450) k/uL MPV Neutrophils % % Lymphocytes % % Monocytes % % Eosinophils % % Basophils % % Neutrophils # (1.3-7.7) k/uL Lymphocytes # (1.0-4.8) k/uL Monocytes # (0-1.0) k/uL Eosinophils # (0-0.7) k/uL Basophils # (0-0.2) k/uL Manual Slide Review Anisocytosis PT 11.9 (9.0-12.0) sec INR 1.1 (<1.2) APTT 27.6 (22.0-30.0) sec VBG pH (7.31-7.41) VBG pCO2 (37-51) mmHg VBG HCO3 (24-28) mmol/L Sodium 123 L (137-145) mmol/L Potassium 4.4 (3.5-5.1) mmol/L Chloride 86 L (98-107) mmol/L Carbon Dioxide 25 (22-30) mmol/L Anion Gap 12 mmol/L BUN 14 (7-17) mg/dL Creatinine 0.95 (0.52-1.04) mg/dL Est GFR (CKD-EPI)AfAm 81 (>60 ml/min/1.73 sqM) Est GFR (CKD-EPI)NonAf 70 (>60 ml/min/1.73 sqM) Glucose 112 H (74-99) mg/dL POC Glucose (mg/dL) (70-110) mg/dL POC Glu Diamond Assorter ID Osmolality 395 H* (280-301) mosm/kg Plasma Lactic Acid Mariusz 2.6 H* (0.7-2.0) mmol/L Calcium 7.7 L (8.4-10.2) mg/dL Magnesium 2.1 (1.6-2.3) mg/dL Total Bilirubin 3.2 H (0.2-1.3) mg/dL AST 173 H (14-36) U/L ALT 51 H (4-34) U/L Alkaline Phosphatase 482 H (38-126) U/L Ammonia 33 H (<30) umol/L Troponin I (0.000-0.034) ng/mL Total Protein 6.8 (6.3-8.2) g/dL Albumin 3.4 L (3.5-5.0) g/dL Lipase 1030 H (23-300) U/L TSH 1.320 (0.465-4.680) mIU/L Salicylates <1.0 mg/dL Urine Opiates Screen (NotDetected) Ur Oxycodone Screen (NotDetected) Urine Methadone Screen (NotDetected) Ur Propoxyphene Screen (NotDetected) Acetaminophen <10.0 ug/mL Ur Barbiturates Screen (NotDetected) U Tricyclic Antidepress (NotDetected) Ur Phencyclidine Scrn (NotDetected) Ur Amphetamines Screen (NotDetected) U Methamphetamines Scrn (NotDetected) U Benzodiazepines Scrn (NotDetected) Urine Cocaine Screen (NotDetected) U Marijuana (THC) Screen (NotDetected) Serum Alcohol 495 H* mg/dL 04/21/22 04/21/22 Range/Units 13:33 13:33 WBC (3.8-10.6) k/uL RBC (3.80-5.40) m/uL Hgb (11.4-16.0) gm/dL Hct (34.0-46.0) % MCV (80.0-100.0) fL MCH (25.0-35.0) pg MCHC (31.0-37.0) g/dL RDW (11.5-15.5) % Plt Count (150-450) k/uL MPV Neutrophils % % Lymphocytes % % Monocytes % % Eosinophils % % Basophils % % Neutrophils # (1.3-7.7) k/uL Lymphocytes # (1.0-4.8) k/uL Monocytes # (0-1.0) k/uL Eosinophils # (0-0.7) k/uL Basophils # (0-0.2) k/uL Manual Slide Review Anisocytosis PT (9.0-12.0) sec INR (<1.2) APTT (22.0-30.0) sec VBG pH 7.44 H (7.31-7.41) VBG pCO2 39 (37-51) mmHg VBG HCO3 26 (24-28) mmol/L Sodium (137-145) mmol/L Potassium (3.5-5.1) mmol/L Chloride (98-107) mmol/L Carbon Dioxide (22-30) mmol/L Anion Gap mmol/L BUN (7-17) mg/dL Creatinine (0.52-1.04) mg/dL Est GFR (CKD-EPI)AfAm (>60 ml/min/1.73 sqM) Est GFR (CKD-EPI)NonAf (>60 ml/min/1.73 sqM) Glucose (74-99) mg/dL POC Glucose (mg/dL) (70-110) mg/dL POC Glu Diamond Assorter ID Osmolality (280-301) mosm/kg Plasma Lactic Acid Mariusz (0.7-2.0) mmol/L Calcium (8.4-10.2) mg/dL Magnesium (1.6-2.3) mg/dL Total Bilirubin (0.2-1.3) mg/dL AST (14-36) U/L ALT (4-34) U/L Alkaline Phosphatase (38-126) U/L Ammonia (<30) umol/L Troponin I 0.050 H* (0.000-0.034) ng/mL Total Protein (6.3-8.2) g/dL Albumin (3.5-5.0) g/dL Lipase (23-300) U/L TSH (0.465-4.680) mIU/L Salicylates mg/dL Urine Opiates Screen (NotDetected) Ur Oxycodone Screen (NotDetected) Urine Methadone Screen (NotDetected) Ur Propoxyphene Screen (NotDetected) Acetaminophen ug/mL Ur Barbiturates Screen (NotDetected) U Tricyclic Antidepress (NotDetected) Ur Phencyclidine Scrn (NotDetected) Ur Amphetamines Screen (NotDetected) U Methamphetamines Scrn (NotDetected) U Benzodiazepines Scrn (NotDetected) Urine Cocaine Screen (NotDetected) U Marijuana (THC) Screen (NotDetected) Serum Alcohol mg/dL Critical Care Time Critical Care Time: Yes Total Critical Care Time: 33 Disposition Clinical Impression: Alcohol intoxication, Elevated troponin Disposition: ADMITTED IP TO THIS [facility] Condition: Serious Referrals: None,Stated [Primary Care Provider] - 1-2 days Decision Time: 15:55
[2022-04-21 12:58] LABS: Glucose,Whole Blood 106 mg/dL (70-110)
--- NOTE | 2022-04-21 13:08 | CT ---
EXAMINATION TYPE: CT brain wo con DATE OF EXAM: 04/21/2022 COMPARISON: 09/11/2020 HISTORY: 51-year-old female with CVA, acute neurologic deficit, altered mental status, confusion TECHNIQUE: Examination was done in axial plane without intravenous contrast. Coronal and sagittal r econstructions performed. CT DLP: 1099.6 mGycm Automated exposure control for dose reduction was used. FINDINGS: There is no evidence of acute intracranial hemorrhage, acute ischemic changes, mass, mass-effect, or extra-axial fluid collection. There is no effacement of cerebral sulci or basal subarachnoid cister ns. There is no hydrocephalus. There is no midline shift. De Luna-white matter distinction is preserv ed. Paranasal sinuses and mastoid air cells are well pneumatized. There patient's gaze is divergent sugge sting underlying strabismus. This can be correlated clinically. IMPRESSION: No acute intracranial abnormality seen.
[2022-04-21 13:45] LABS: VBG PH 7.44 (7.31-7.41)
[2022-04-21 13:50] LABS: Anisocytosis Slight; Basophils % (A) 1 %; Eosinophils % (A) 0 %; HGB 13.7 gm/dL (11.4-16.0); Lymphocytes # (A) 1.2 k/uL (1.0-4.8); Lymphocytes % (A) 31 %; MCH 32.4 pg (25.0-35.0); MCHC 35.1 g/dL (31.0-37.0); MCV 92.4 fL (80.0-100.0); Mean Platelet Volume 9.1; Monocytes # (A) 0.3 k/uL (0-1.0); Monocytes % (A) 7 %; Neutrophils # (A) 2.3 k/uL (1.3-7.7); Neutrophils % (A) 59 %; RBC 4.22 m/uL (3.80-5.40); RDW 16.3 % (11.5-15.5); WBC 3.9 k/uL (3.8-10.6)
[2022-04-21 13:55] LABS: INR 1.1 (<1.2); Partial Thromboplastin Time 27.6 sec (22.0-30.0); Prothrombin Time 11.9 sec (9.0-12.0)
[2022-04-21 14:05] LABS: Lactic Acid, Venous 2.6 mmol/L (0.7-2.0)
[2022-04-21 14:08] LABS: ALT 51 U/L (4-34); AST 173 U/L (14-36); Acetaminophen <10.0 ug/mL; African American GFR (CKD) 81 (>60 ml/min/1.73 sqM); Albumin 3.4 g/dL (3.5-5.0); Alkaline Phosphatase 482 U/L (38-126); Anion Gap 12 mmol/L; Blood Urea Nitrogen 14 mg/dL (7-17); Calcium 7.7 mg/dL (8.4-10.2); Carbon Dioxide 25 mmol/L (22-30); Chloride 86 mmol/L (98-107); Glucose 112 mg/dL (74-99); Lipase 1030 U/L (23-300); Magnesium 2.1 mg/dL (1.6-2.3); Non-African American GFR(CKD) 70 (>60 ml/min/1.73 sqM); Potassium 4.4 mmol/L (3.5-5.1); Salicylate <1.0 mg/dL; Sodium 123 mmol/L (137-145); Total Bilirubin 3.2 mg/dL (0.2-1.3); Total Protein 6.8 g/dL (6.3-8.2)
--- NOTE | 2022-04-21 14:14 | XR ---
EXAMINATION TYPE: XR chest 1V portable DATE OF EXAM: 04/21/2022 COMPARISON: 10/14/2020 INDICATION: Altered mental status chest pain TECHNIQUE: Single frontal view of the chest is obtained. FINDINGS: The heart size is normal. The pulmonary vasculature is normal. There may be some mild bibasilar infiltrates. Correlate for atelectasis. Developing pneumonia could b e considered. IMPRESSION: 1. Bibasilar infiltrates. Correlate for atelectasis or pneumonia. Follow-up can be performed as clini aida indicated.
[2022-04-21 14:23] LABS: Alcohol 495 mg/dL
[2022-04-21 14:42] LABS: Amphetamine Screen,Urine Not Detected (NotDetected); Barbiturate Screen,Urine Not Detected (NotDetected); Benzodiazepines Screen,Urine Not Detected (NotDetected); Cocaine Screen,Urine Not Detected (NotDetected); Methadone Screen, Urine Not Detected (NotDetected); Opiate Screen,Urine Not Detected (NotDetected); Oxycodone Screen, Urine Not Detected (NotDetected); Phencyclidine Screen,Urine Not Detected (NotDetected); Tricyclic Antidepressant,Urine Not Detected (NotDetected); Urn Cannabinoid Scrn Not Detected (NotDetected)
[2022-04-21 14:50] LABS: Platelet Count 87 k/uL (150-450)
[2022-04-21] MEDS ORDERED: ASPIRIN 300 MG SUPP RECTAL STA (15:44)
[2022-04-21] MEDS ORDERED: NALOXONE 0.4 MG/ML 1 ML VIAL IV PRN (15:55)
--- NOTE | 2022-04-21 16:06 | CT ---
EXAMINATION TYPE: CT angio head neck DATE OF EXAM: 04/21/2022 COMPARISON: Brain same day HISTORY: 51-year-old female weakness, Neuro deficits TECHNIQUE: Contiguous axial scanning of the head and neck performed with IV Contrast, patient injecte d with 65 mL of Isovue 370. Coronal/sagittal MIP reconstructions performed. CT DLP: 457.3 mGycm Automated exposure control for dose reduction was used. FINDINGS: NECK: Large caliber to the main right and left pulmonary arteries measuring up to 3.5 cm. Distention of the azygos vein. Consider pulmonary hypertension/mild CHF especially given interstitial changes and mild mosaic attenuation. Conventional arch was a branching anatomy. The vertebral arteries are codominant and patent throughout the course. Right common carotid artery is patent. Mild apical scarring calcification right carotid bifurcation without any significant right ICA stenos is. Left common carotid artery is patent. Mild to moderate atherosclerotic calcification left carotid bifurcation with mild, 25% proximal left ICA stenosis. Remainder of the left ICA is patent. HEAD: The vertebral and basilar arteries as well as the remainder of the posterior circulation are patent. The internal carotid arteries and remainder of the anterior circulation is patent. No aneurysmal change is seen. Dural venous sinuses are patent. IMPRESSION: NECK: 1. Mild atherosclerotic change at the bilateral carotid bifurcations. There is mild, 25% proximal lef t ICA stenosis. No hemodynamically significant carotid or vertebral artery stenosis in the neck. 2. Pulmonary arterial hypertension. Distention of the azygos vein. Correlate to exclude mild CHF give n interstitial changes in the lungs. HEAD: 3. No large vessel intracranial arterial occlusion, significant stenosis, or aneurysmal change is see n.
[2022-04-21] MEDS: SODIUM CHLORIDE 0.9% 1,000 ML IV SCH ×2 (16:19→23:46)
[2022-04-21] MEDS: hydrOXYzine pamoate 25 MG CAP PO SCH ×2 (18:50→23:51)
[2022-04-21] MEDS: cloNIDine HCL 0.1 MG TAB PO SCH ×2 (18:50→21:18)
[2022-04-21] MEDS ORDERED: LORazepam 1 MG/0.5 ML VIAL IV PRN (19:20)
--- NOTE | 2022-04-21 20:08 | HP ---
HISTORY AND PHYSICAL CHIEF COMPLAINT: Alcohol intoxication. HISTORY OF PRESENT ILLNESS: This is a 51-year-old woman with a past medical history of GI bleed and liver disease was taken to [facility] with complaints of some change in mental status. The patient was found to have alcohol intoxication. Alcohol level was 495. The patient also had multiple abnormalities, including troponin 0.050. Patient was admitted for further evaluation. Patient is drowsy, confused, unable to give a coherent history. Most of the history is taken from my discussion with staff and review of the chart and discussion with the ER physician. PAST MEDICAL HISTORY: Reviewed and includes liver disease and DJD. HOME MEDICATIONS: Reviewed and include Zanaflex. Doses and the rest of the medications are noted. ALLERGIES: PENICILLIN. Family history, social history and review of systems could not be taken because of the change in mental status. PHYSICAL EXAMINATION: Pulse is 87, blood pressure 129/70, respiration 19. HEENT: Conjunctivae normal. NECK: No jugular venous distention. CARDIOVASCULAR: S1, S2 muffled. RESPIRATION: Breath sounds diminished at the bases. A few scattered rhonchi and crackles. ABDOMEN: Soft, nontender. LEGS: No edema. No swelling. NERVOUS SYSTEM: Could not be examined completely. SKIN: Multiple bruises. JOINTS: No active deforming arthropathy. LYMPHATICS: No lymph node palpable in neck, axillae or groin. LABS: Reviewed. Sodium 123. Rest of the labs noted. ASSESSMENT: 1. Acute alcohol intoxication. 2. Troponin 0.050. Rule out acute coronary syndrome. 3. Alcoholic hepatitis. 4. History of liver disease. 5. History of seizure disorder. 6. Multiple medical issues. RECOMMENDATIONS AND DISCUSSION: In this 51-year-old woman who presented with multiple complex medical issues, we will monitor the patient closely, continue the current medications, continue symptomatic treatment. Will obtain cardiology consultation. Ativan. CIWA protocol or phenobarbital protocol, whichever one is available. We will continue to monitor. Guarded prognosis. Repeat labs. Social work consultation. Resume the home medication when the list is available. Further recommendations to follow. MMODL / IJN: [id number] /
[2022-04-21] MEDS ORDERED: tiZANidine 4 MG TAB PO SCH (22:00)
[2022-04-22 04:42] LABS: Anisocytosis Slight; Basophils % (A) 1 %; Eosinophils % (A) 0 %; HCT 32.8 % (34.0-46.0); HGB 11.1 gm/dL (11.4-16.0); Lymphocytes # (A) 0.6 k/uL (1.0-4.8); Lymphocytes % (A) 30 %; MCH 32.2 pg (25.0-35.0); MCHC 33.8 g/dL (31.0-37.0); MCV 95.3 fL (80.0-100.0); Mean Platelet Volume 9.5; Monocytes # (A) 0.1 k/uL (0-1.0); Monocytes % (A) 5 %; Neutrophils # (A) 1.2 k/uL (1.3-7.7); Neutrophils % (A) 62 %; RBC 3.44 m/uL (3.80-5.40); RDW 16.5 % (11.5-15.5); WBC 1.9 k/uL (3.8-10.6)
[2022-04-22 04:44] LABS: Albumin 2.5 g/dL (3.5-5.0); Calcium 7.1 mg/dL (8.4-10.2); Potassium 4.2 mmol/L (3.5-5.1); Total Bilirubin 2.5 mg/dL (0.2-1.3); Total Protein 5.3 g/dL (6.3-8.2)
[2022-04-22 05:12] LABS: Platelet Count 37 k/uL (150-450)
[2022-04-22] MEDS: hydrOXYzine pamoate 25 MG CAP PO SCH (05:38)
[2022-04-22] MEDS: SODIUM CHLORIDE 0.9% 1,000 ML IV SCH ×2 (06:20→16:57)
[2022-04-22] MEDS: PANTOPRAZOLE 40 MG TABLET PO SCH (06:20)
[2022-04-22] MEDS: FUROSEMIDE 20 MG TAB PO SCH (09:04)
--- NOTE | 2022-04-22 09:09 | P.CRDCN ---
History of Present Illness Consult date: 04/22/22 History of present illness: History of Present Illness: The patient is a 51-year-old female with known history of alcoholism, prior history of hepatitis C, prior history of drug use who presented with change in mental status and alcoholic intoxication. Cardiology consultation was requested because of elevation of troponin. The patient has dyspnea on exertion but no chest discomfort. She was in sinus mechanism on presentation. She denies any dizziness. She appears to be more awake and alert according to the records. She had an echocardiogram in 2016 that showed no evidence of cardiomyopathy or significant valvular disease. According to her she has a history of heart murmur. She has prior history of drug overdose and ventilation secondary to that. She has no history of diabetes, she Vapes. There is no history of hyperlipidemia. Her activity is limited. She has no peripheral edema, PND or orthopnea. Medications: Spironolactone 25 mg daily, Lasix 20 mg daily, gabapentin, Keppra, Zanaflex Review of Systems: Respiratory: She has a history of stable dyspnea on exertion GI: She has prior history of nausea and vomiting. No history of peptic ulcer d isease. No recent GI bleed. : No hematuria or dysuria. Nervous System: No stroke , she has a history of seizure. Physical Examination: 51-year-old female alert, slow in answering, appears to be older than stated age. ,Blood pressure 93/50, Heart rate 69 Head: Normocephalic. Eyes: Sclerae nonicteric. Neck: Good carotid upstroke, no bruit, no jugular venous distention. Lungs: Decreased breath sounds bilaterally Heart: Regular rate and rhythm, S1-S2, no S3, no rub. Systolic ejection murmur, at the base, 2/6. Abdomen: Soft nontender, positive bowel sounds no organomegaly. Extremities: No edema, intact distal pulses. Labs: Hemoglobin 13.7, platelets 87, potassium 4.4, BUN 14, creatinine 0.95. Plasma lactic acid 2.6. Troponin 0.05. AST 173, ALT 51. Lipase 1030. Serum alcohol 495. CT angiogram of the head showed mild carotid disease with no evidence of significant stenosis. Chest x-ray with bibasilar infiltrate. EKG: Sinus mechanism with nonspecific ST-T wave changes Impression: 1. Acute alcoholic intoxication 2. Mild troponin elevation with no evidence to suggest acute coronary syndrome 3. History of of chronic tobacco use 4. Prior history of heart murmur, appears to be aortic valve disease 5. 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 6. History of seizure disorder Plan: 1. Obtain an echocardiogram with Doppler 2. Continue telemetry 3. No evidence for acute coronary syndrome, no indication for anticoagulation 4. Depending on her progress further recommendations will be made 5. Thank you for this consult we will follow with you. 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 "IN OCTOBER DRANK RUBBING ALCOHOL". FAMILT STATED PT TAKES SUBOXONE TO HELP HER NOT DRINK AND FOR PAIN IN LEGS/KNEES. Hep C Positive History of Any Multi-Drug Resistant Organisms: MRSA Date of last positivie culture/infection: 04/20/16 MDRO Source:: SPUTUM Past Surgical History: Hernia Repair, Uterine Ablation Additional Past Surgical History / Comment(s): NOVOSURE ENDOMETRIAL ABLATION. PT HAD "THROAT BANDING DONE" Past Anesthesia/Blood Transfusion Reactions: No Reported Reaction Additional Past Anesthesia/Blood Transfusion Reaction / Comment(s): Pt received previous blood transfusion at [facility] per past medical record. Smoking Status: Vaper - Past Family History Father Family Medical History: No Reported History Mother Family Medical History: Cancer Additional Family Medical History / Comment(s): COLON AND LUNG CANCER- AT AGE 50 Medications and Allergies Home Medications Medication Instructions Recorded Confirmed Type Buprenorphine HCl/Naloxone HCl 1 film SUBLINGUAL BID 05/14/17 04/21/22 History [Suboxone 8 mg-2 mg Sl Film] levETIRAcetam [Keppra] 500 mg PO BID 06/18/17 04/21/22 History hydrOXYzine pamoate [hydrOXYzine 50 mg PO Q6H 09/11/20 04/21/22 History PAMOATE] tiZANidine [Zanaflex] 8 mg PO TID 09/11/20 04/21/22 History Furosemide [Lasix] 20 mg PO DAILY 04/21/22 04/21/22 History Gabapentin 1,200 mg PO TID 04/21/22 04/21/22 History Spironolactone 25 mg PO DAILY 04/21/22 04/21/22 History Allergies Allergy/AdvReac Type Severity Reaction Status Date / Time Penicillins Allergy Severe Rash/Hives Verified 04/21/22 12:53 Physical Exam Vitals: Vital Signs Temp Pulse Pulse Resp BP BP Pulse Ox 04/22/22 04:00 97.8 F 69 16 93/52 92 L 04/22/22 01:34 70 16 91/56 04/22/22 00:00 70 16 87/50 94 L 04/21/22 20:49 97.8 F 79 18 103/64 95 04/21/22 20:00 97.8 F 79 16 116/73 95 04/21/22 19:03 100 17 116/64 95 04/21/22 18:00 98.2 F 82 18 118/80 92 L 04/21/22 17:00 90 16 117/72 92 L 04/21/22 16:00 82 16 126/70 94 L 04/21/22 15:00 86 18 116/70 94 L 04/21/22 14:00 96 16 116/72 04/21/22 13:30 87 19 121/70 04/21/22 13:00 82 18 111/73 04/21/22 12:50 90 L 04/21/22 12:43 98.6 F 90 12 111/73 91 L Intake and Output 04/21/22 04/22/22 04/22/22 22:59 06:59 14:59 Intake Total 780 Output Total 1999 Balance -1220 Intake: Intake, IV Titration 780 Amount Sodium Chloride 0.9% 1, 780 000 ml @ 130 mls/hr IV . Q7H42M [facility] Rx#:[id number] Output: Urine 1999 Straight 1000 Other: Voiding Method Bedside Commode Weight 69.536 kg Results 04/22/22 03:41 04/22/22 03:41 Cardiac Enzymes 04/21/22 04/21/22 04/22/22 Range/Units 13:33 13:33 03:41 AST 173 H 121 H (14-36) U/L Troponin I 0.050 H* (0.000-0.034) ng/mL Coagulation 04/21/22 Range/Units 13:33 PT 11.9 (9.0-12.0) sec APTT 27.6 (22.0-30.0) sec CBC 04/21/22 04/22/22 Range/Units 13:33 03:41 WBC 3.9 1.9 L (3.8-10.6) k/uL RBC 4.22 3.44 L (3.80-5.40) m/uL Hgb 13.7 11.1 L (11.4-16.0) gm/dL Hct 39.0 32.8 L (34.0-46.0) % Plt Count 87 L 37 L D (150-450) k/uL Comprehensive Metabolic Panel 04/21/22 04/22/22 Range/Units 13:33 03:41 Sodium 123 L 124 L (137-145) mmol/L Potassium 4.4 4.2 (3.5-5.1) mmol/L Chloride 86 L 95 L (98-107) mmol/L Carbon Dioxide 25 22 (22-30) mmol/L BUN 14 14 (7-17) mg/dL Creatinine 0.95 0.89 (0.52-1.04) mg/dL Glucose 112 H 87 (74-99) mg/dL Calcium 7.7 L 7.1 L (8.4-10.2) mg/dL AST 173 H 121 H (14-36) U/L ALT 51 H 40 H (4-34) U/L Alkaline Phosphatase 482 H 314 H (38-126) U/L Total Protein 6.8 5.3 L (6.3-8.2) g/dL Albumin 3.4 L 2.5 L (3.5-5.0) g/dL Current Medications Generic Name Dose Route Start Last Admin Trade Name Freq PRN Reason Stop Dose Admin Clonidine 0.1 mg 04/21/22 16:45 04/21/22 21:18 Clonidine Hcl 0.1 Mg Tab PO 0.1 mg TID SHASHI Administration Folic Acid 1 mg 04/22/22 12:00 Folic Acid 1 Mg Tab PO DAILY@1200 SHASHI Furosemide 20 mg 04/22/22 09:00 Furosemide 20 Mg Tab PO DAILY SHASHI Sodium Chloride 1,000 mls @ 130 mls/hr 04/21/22 16:00 04/22/22 06:20 Saline 0.9% IV 130 mls/hr .Q7H42M SHASHI Administration Lorazepam 1 mg 04/21/22 19:20 Lorazepam 1 Mg/0.5 Ml Vial IV Q2HR PRN CIWA 8 or 9 Lorazepam 1 mg 04/21/22 19:20 Lorazepam 1 Mg/0.5 Ml Vial IV Q1HR PRN CIWA 10 to 15 Lorazepam 2 mg 04/21/22 19:20 Lorazepam 1 Mg/0.5 Ml Vial IV 04/23/22 19:20 Q10M PRN CIWA 16 or higher Multivitamins 1 each 04/22/22 12:00 Multivitamins, Thera 1 Each Tab PO DAILY@1200 [facility] Naloxone HCl 0.2 mg 04/21/22 15:55 Naloxone 0.4 Mg/Ml 1 Ml Vial IV Q2M PRN Opioid Reversal Pantoprazole Sodium 40 mg 04/22/22 07:30 04/22/22 06:20 Pantoprazole 40 Mg Tablet PO 40 mg AC-BRKFST SHASHI Administration Spironolactone 25 mg 04/22/22 09:00 Spironolactone 25 Mg Tab PO DAILY SHASHI Thiamine HCl 100 mg 04/22/22 12:00 Thiamine 100 Mg Tab PO DAILY@1200 [facility] Intake and Output 04/21/22 04/22/22 04/22/22 22:59 06:59 14:59 Intake Total 780 Output Total 1999 Balance -1220 Intake: Intake, IV Titration 780 Amount Sodium Chloride 0.9% 1, 780 000 ml @ 130 mls/hr IV . Q7H42M [facility] Rx#:[id number] Output: Urine 1999 Straight 1000 Other: Voiding Method Bedside Commode Weight 69.536 kg 04/22/22 03:41 04/22/22 03:41
[2022-04-22] MEDS: LORazepam 1 MG/0.5 ML VIAL IV PRN (09:13)
[2022-04-22] MEDS: cloNIDine HCL 0.1 MG TAB PO SCH ×3 (12:03→20:57)
[2022-04-22 12:12] LABS: Anisocytosis Slight; Basophils % (A) 0 %; Eosinophils % (A) 0 %; HGB 10.7 gm/dL (11.4-16.0); Lymphocytes # (A) 0.6 k/uL (1.0-4.8); Lymphocytes % (A) 22 %; MCH 32.7 pg (25.0-35.0); MCHC 34.5 g/dL (31.0-37.0); Monocytes # (A) 0.2 k/uL (0-1.0); Monocytes % (A) 9 %; Neutrophils # (A) 1.7 k/uL (1.3-7.7); Neutrophils % (A) 66 %; RBC 3.27 m/uL (3.80-5.40); RDW 16.1 % (11.5-15.5); WBC 2.6 k/uL (3.8-10.6)
[2022-04-22 12:13] LABS: Platelet Count 47 k/uL (150-450)
[2022-04-22] MEDS: MULTIVITAMINS, THERA 1 EACH TAB PO SCH (12:28)
[2022-04-22] MEDS: SPIRONOLACTONE 25 MG TAB PO SCH (12:28)
[2022-04-22] MEDS: FOLIC ACID 1 MG TAB PO SCH (12:28)
[2022-04-22] MEDS: THIAMINE 100 MG TAB PO SCH (12:28)
--- NOTE | 2022-04-22 14:10 | CA ---
Transthoracic Echo Report Name: Esha Garcia Age: 51 Gender: F : 1970 Exam Date: 04/22/2022 10:58 Exam Location: [place] [facility] Ht (in): 66 Wt (lb): 153 Ordering Physician: Jenna Stapleton MD ([id number]) Attending/Referring Phys: [employer] Jaclyn Rodas RDCS Procedure CPT: Indications: dyspnea Cardiac Hx: Technical Quality: Fair Contrast 1: Total Dose (mL): Contrast 2: Total Dose (mL): MEASUREMENTS (Male / Female) Normal Values 2D ECHO LV Diastolic Diameter PLAX 4.6 cm 4.2 - 5.9 / 3.9 - 5.3 cm LV Systolic Diameter PLAX 2.8 cm IVS Diastolic Thickness 1.3 cm 0.6 - 1.0 / 0.6 - 0.9 cm LVPW Diastolic Thickness 1.5 cm 0.6 - 1.0 / 0.6 - 0.9 cm LV Relative Wall Thickness 0.6 RV Internal Dim ED PLAX 3.2 cm LA Volume 90.2 cm??? 18 - 58 / 22 - 52 cm??? M-MODE Aortic Root Diameter MM 2.5 cm LA Systolic Diameter MM 4.6 cm LA Ao Ratio MM 1.8 AV Cusp Separation MM 1.9 cm DOPPLER AV Peak Velocity 211.8 cm/s AV Peak Gradient 17.9 mmHg AV Mean Velocity 153.8 cm/s AV Mean Gradient 10.1 mmHg AV Velocity Time Integral 35.1 cm AI Peak Velocity 364.0 cm/s AI Peak Gradient 53.0 mmHg AI Pressure Half Time 344.5 ms LVOT Peak Velocity 169.6 cm/s LVOT Peak Gradient 11.5 mmHg MV Area PHT 3.4 cm??? Mitral E Point Velocity 76.0 cm/s Mitral A Point Velocity 114.5 cm/s Mitral E to A Ratio 0.7 MV Deceleration Time 174.9 ms TR Peak Velocity 298.9 cm/s TR Peak Gradient 35.7 mmHg Right Ventricular Systolic Press 40.1 mmHg FINDINGS Left Ventricle Mildly increased left ventricular wall thickness. Normal left ventricular systolic function with no obvious regional wall motion abnormalities. Left ventricular ejection fraction is estimated at 55- 60 %. Abnormal left ventricular diastolic filling pattern. Right Ventricle Normal right ventricular size and function. Mild pulmonary hypertension. Right Atrium Normal right atrial size. Left Atrium Severely increased left atrial volume. No evidence for an atrial septal defect. Mitral Valve Mitral valve thickened. [id number] mitral regurgitation. Aortic Valve Trileaflet aortic valve. Trace to mild aortic regurgitation. Aortic valve sclerosis. Tricuspid Valve Structurally normal tricuspid valve. Mild tricuspid regurgitation. Pulmonic Valve Trace pulmonic regurgitation. Pericardium No pericardial effusion. Aorta Normal size aortic root and proximal ascending aorta. CONCLUSIONS 1. Normal size and systolic function 2. Mild to moderate mitral regurgitation 3. Mild tricuspid regurgitation 4. Trace to mild aortic regurgitation. Previewed by: Dr. Jenna Stapleton MD (Electronically Signed) Final Date: 22 April 2022 14:08
[2022-04-22] MEDS: LACTULOSE 20 GM/30 ML CUP PO SCH ×2 (16:56→20:57)
[2022-04-22] MEDS: chlordiazePOXIDE 25 MG CAP PO SCH ×2 (16:56→20:57)
--- NOTE | 2022-04-22 17:12 | PN ---
PROGRESS NOTE DATE OF SERVICE: 04/22/2022 This 51-year-old woman who was admitted with alcohol intoxication also had elevated troponin. Cardiology is following the patient closely. No chest pain. No palpitations. Patient is drowsy. PHYSICAL EXAMINATION: Pulse is 84, blood pressure 107/60, respiration 20. HEENT: Conjunctivae normal. NECK: No jugular venous distention. CARDIOVASCULAR: S1, S2 muffled. RESPIRATION: Breath sounds diminished at the bases. ABDOMEN: Soft. NERVOUS SYSTEM: No focal deficit. Mild tremors. LABS: WBC 2.5, hemoglobin 10.7. Other labs are noted. Troponin 0.050. The 2D echo is noted. ASSESSMENT: 1. ETOH intoxication. 2. Troponin 0.050, indeterminate. 3. Alcoholic hepatitis. 4. History of liver disease. RECOMMENDATIONS AND DISCUSSION: I recommend to continue current medications, continue with the monitoring, symptomatic treatment. Closely follow with Cardiology. Continue with Librium. The prognosis is guarded. Further recommendations to follow. MMODL / IJN: [id number] /
[2022-04-23] MEDS: SODIUM CHLORIDE 0.9% 1,000 ML IV SCH ×5 (00:03→23:55)
[2022-04-23] MEDS: LORazepam 1 MG/0.5 ML VIAL IV PRN ×3 (00:44→13:20)
[2022-04-23] MEDS: PANTOPRAZOLE 40 MG TABLET PO SCH (06:36)
[2022-04-23 08:59] LABS: African American GFR (CKD) >90 (>60 ml/min/1.73 sqM); Anion Gap 5 mmol/L; Blood Urea Nitrogen 14 mg/dL (7-17); Calcium 7.9 mg/dL (8.4-10.2); Carbon Dioxide 20 mmol/L (22-30); Chloride 102 mmol/L (98-107); Glucose 83 mg/dL (74-99); Non-African American GFR(CKD) >90 (>60 ml/min/1.73 sqM); Potassium 3.1 mmol/L (3.5-5.1); Sodium 127 mmol/L (137-145)
[2022-04-23] MEDS: cloNIDine HCL 0.1 MG TAB PO SCH ×3 (09:51→22:05)
[2022-04-23] MEDS: SPIRONOLACTONE 25 MG TAB PO SCH (09:51)
[2022-04-23] MEDS: chlordiazePOXIDE 25 MG CAP PO SCH ×3 (09:51→22:05)
[2022-04-23] MEDS: LACTULOSE 20 GM/30 ML CUP PO SCH ×3 (09:51→22:05)
[2022-04-23] MEDS: FUROSEMIDE 20 MG TAB PO SCH (09:51)
[2022-04-23] MEDS: POTASSIUM CHLORIDE ER 20 MEQ TAB.ER PO SCH ×2 (11:15→13:23)
[2022-04-23] MEDS: FOLIC ACID 1 MG TAB PO SCH (11:15)
[2022-04-23] MEDS: MULTIVITAMINS, THERA 1 EACH TAB PO SCH (11:15)
[2022-04-23] MEDS: THIAMINE 100 MG TAB PO SCH (11:15)
[2022-04-23] MEDS ORDERED: LORazepam 1 MG TAB PO PRN ×2 (13:26→13:27)
--- NOTE | 2022-04-23 13:44 | P.PN ---
Subjective Progress Note Date: 04/23/22 PROGRESS NOTE The patient is a 51-year-old female known history of chronic alcoholism, multi- substance abuse, hepatitis C who presented with alcohol withdrawal. She had mild troponin elevation. She feels shaky today but she denies any chest discomfort. Her breathing is stable. She continues to be in sinus mechanism. No evidence of atrial arrhythmia. Her echocardiogram showed a normal systolic function was mild to moderate mitral, mild tricuspid and aortic regurgitation. Medications: Clonidine 0.1 mg 3 times a day, Lasix 20 mg daily, spironolactone 25 mg daily PHYSICAL EXAMINATION: Blood pressure 136/80 heart rate 100 LUNGS: Clear to auscultation HEART: Regular rate and rhythm, S1, S2. No S3. systolic ejection murmur 11/27 ABDOMEN: Soft, nontender, no organomegaly EXTREMETIES: No edema LAB: Potassium 3.1, BUN 14, creatinine 0.76 IMPRESSION: 1. Alcoholism with alcohol withdrawal 2. Mild troponin elevation, asymptomatic, no evidence to suggest acute coronary syndrome 3. History of tobacco use 4. History of multi-substance abuse PLAN: 1. No further cardiac workup is needed at this time 2. Start aspirin platelets are stable 3. Alcohol cessation 4. We will see her on an as needed basis, please feel free to call us for any question Objective - Vital Signs Vital signs: Vital Signs Temp 98.0 F 04/23/22 12:00 Pulse 101 H 04/23/22 12:00 Resp 19 04/23/22 12:00 BP 136/85 04/23/22 12:00 Pulse Ox 98 04/23/22 12:00 FiO2 Intake & Output 04/22/22 04/23/22 04/23/22 18:59 06:59 18:59 Intake Total 1560 Output Total 1283 2200 Balance 277 -2200 Weight 73.7 kg Intake: Intake, IV Titration 1560 Amount Sodium Chloride 0.9% 1, 1560 000 ml @ 130 mls/hr IV . Q7H42M [facility] Rx#:[id number] Output: Urine 450 2200 Straight 450 1000 Post Void Residual 833 Other: Voiding Method Bedside Commode Indwelling Catheter Indwelling Catheter # Bowel Movements 1 1 - Labs CBC & Chem 7: 04/22/22 11:29 04/23/22 08:17 Labs: Abnormal Lab Results - Last 24 Hours (Table) 04/23/22 Range/Units 08:17 Sodium 127 L (137-145) mmol/L Potassium 3.1 L (3.5-5.1) mmol/L Carbon Dioxide 20 L (22-30) mmol/L Calcium 7.9 L (8.4-10.2) mg/dL Microbiology - Last 24 Hours (Table) 04/21/22 13:00 Blood Culture - Preliminary Blood No Growth after 24 hours 04/21/22 13:15 Blood Culture - Preliminary Blood No Growth after 24 hours
--- NOTE | 2022-04-23 14:58 | PN ---
PROGRESS NOTE DATE OF SERVICE: 04/23/2022 This 51-year-old woman who was admitted with alcohol intoxication also had indeterminate troponin. Patient continues to be confused. Patient had urinary retention last night. Thibodeaux catheter was inserted. PHYSICAL EXAMINATION: Pulse is 102, blood pressure 130/81, respiration 18. HEENT: Conjunctivae normal. NECK: No jugular venous distention. CARDIOVASCULAR: S1, S2 muffled. RESPIRATION: Breath sounds diminished at the bases. No rhonchi. No crackles. ABDOMEN: Soft. NERVOUS SYSTEM: Diffusely weak. Tremors present. LABS: Reviewed. Hemoglobin 10.7. ASSESSMENT: 1. Acute alcohol intoxication. 2. Troponin 0.050, indeterminate. 3. Alcoholic hepatitis. 4. History of liver disease. RECOMMENDATIONS AND DISCUSSION: I recommend to continue current medications, continue with the monitoring, symptomatic treatment. I would recommend increasing the dose of Librium. Closely monitor. Closely follow with Cardiology. Prognosis guarded. Further recommendations to follow. MMODL / IJN: [id number] /
[2022-04-23] MEDS: LORazepam 1 MG TAB PO PRN ×2 (20:36→23:55)
[2022-04-24] MEDS: PANTOPRAZOLE 40 MG TABLET PO SCH (06:28)
[2022-04-24] MEDS: LORazepam 1 MG TAB PO PRN ×3 (06:29→23:13)
[2022-04-24 08:01] LABS: Basophils % (A) 0 %; Eosinophils % (A) 0 %; HCT 33.6 % (34.0-46.0); HGB 11.5 gm/dL (11.4-16.0); Lymphocytes # (A) 0.6 k/uL (1.0-4.8); Lymphocytes % (A) 16 %; MCHC 34.3 g/dL (31.0-37.0); MCV 96.1 fL (80.0-100.0); Mean Platelet Volume 11.8; Monocytes # (A) 0.3 k/uL (0-1.0); Monocytes % (A) 8 %; Neutrophils # (A) 2.7 k/uL (1.3-7.7); Neutrophils % (A) 72 %; RDW 15.8 % (11.5-15.5); WBC 3.7 k/uL (3.8-10.6)
[2022-04-24 08:09] LABS: African American GFR (CKD) >90 (>60 ml/min/1.73 sqM); Anion Gap 7 mmol/L; Blood Urea Nitrogen 8 mg/dL (7-17); Calcium 7.8 mg/dL (8.4-10.2); Carbon Dioxide 17 mmol/L (22-30); Chloride 105 mmol/L (98-107); Glucose 94 mg/dL (74-99); Non-African American GFR(CKD) >90 (>60 ml/min/1.73 sqM); Sodium 129 mmol/L (137-145)
[2022-04-24] MEDS: cloNIDine HCL 0.1 MG TAB PO SCH ×3 (08:27→21:29)
[2022-04-24] MEDS: chlordiazePOXIDE 25 MG CAP PO SCH ×4 (08:27→21:29)
[2022-04-24] MEDS: SPIRONOLACTONE 25 MG TAB PO SCH (08:27)
[2022-04-24] MEDS: LACTULOSE 20 GM/30 ML CUP PO SCH (08:27)
[2022-04-24] MEDS: FUROSEMIDE 20 MG TAB PO SCH (08:27)
[2022-04-24 08:29] LABS: Large Platelets Present
[2022-04-24] MEDS ORDERED: POTASSIUM CHLORIDE ER 20 MEQ TAB.ER PO STA (10:27)
[2022-04-24] MEDS: MULTIVITAMINS, THERA 1 EACH TAB PO SCH (11:09)
[2022-04-24] MEDS: FOLIC ACID 1 MG TAB PO SCH (11:09)
[2022-04-24] MEDS: THIAMINE 100 MG TAB PO SCH (11:13)
--- NOTE | 2022-04-24 12:50 | P.PN ---
Subjective Progress Note Date: 04/24/22 04/24/2022 Patient is admitted with altered mental status and alcohol intoxication and is being closely monitored. Patient is seen today and per nursing staff is quite lethargic due to ativan and is maintained on CIWA protocol. Patient also continues on Librium QID and will continue. Patient tolerating oral intake and taking medications. Patient having multiple bowel movements and will make lactulose daily. Recommend to continue with indwelling zimmerman catheter for now. PT/OT to evaluate. Sodium is slightly improved at 129 today and potassium is 3.0 and recommend to replace K+ per protocol. Patient is afebrile and no reports of chest pain noted. Cardiology has evaluated the patient for elevated troponins. All medications have been reviewed Active Medications Chlordiazepoxide HCl (Chlordiazepoxide 25 Mg Cap) 25 mg PO QID [facility] Last Admin: 04/24/22 08:27 Dose: 25 mg Clonidine (Clonidine Hcl 0.1 Mg Tab) 0.1 mg PO TID [facility] Last Admin: 04/24/22 08:27 Dose: 0.1 mg Folic Acid (Folic Acid 1 Mg Tab) 1 mg PO DAILY@1200 [facility] Last Admin: 04/24/22 11:09 Dose: 1 mg Furosemide (Furosemide 20 Mg Tab) 20 mg PO DAILY [facility] Last Admin: 04/24/22 08:27 Dose: 20 mg Sodium Chloride (Saline 0.9%) 1,000 mls @ 130 mls/hr IV .Q7H42M [facility] Last Admin: 04/23/22 23:55 Dose: 130 mls/hr Lactulose (Lactulose 20 Gm/30 Ml Cup) 20 gm PO TID [facility] Last Admin: 04/24/22 08:27 Dose: 20 gm Lorazepam (Lorazepam 1 Mg Tab) 1 mg PO Q2HR PRN PRN Reason: CIWA 8 or 9 Last Admin: 04/24/22 11:09 Dose: 1 mg Lorazepam (Lorazepam 1 Mg Tab) 1 mg PO Q1HR PRN PRN Reason: CIWA 10 to 15 Lorazepam (Lorazepam 1 Mg Tab) 2 mg PO Q10M PRN PRN Reason: CIWA 16 or higher Stop: 04/27/22 13:28 Multivitamins (Multivitamins, Thera 1 Each Tab) 1 each PO DAILY@1200 [facility] Last Admin: 04/24/22 11:09 Dose: 1 each Naloxone HCl (Naloxone 0.4 Mg/Ml 1 Ml Vial) 0.2 mg IV Q2M PRN PRN Reason: Opioid Reversal Pantoprazole Sodium (Pantoprazole 40 Mg Tablet) 40 mg PO AC-BRKFST [facility] Last Admin: 04/24/22 06:28 Dose: 40 mg Spironolactone (Spironolactone 25 Mg Tab) 25 mg PO DAILY [facility] Last Admin: 04/24/22 08:27 Dose: 25 mg Thiamine HCl (Thiamine 100 Mg Tab) 100 mg PO DAILY@1200 [facility] Last Admin: 04/24/22 11:13 Dose: 100 mg PHYSICAL EXAMINATION: GENERAL: The patient is alert and oriented x2, lethargic HEENT: PERRLA. EOMI. no scleral icterus. No conjunctival pallor. Normocephalic, atraumatic. No pharyngeal erythema. No thyromegaly. CARDIOVASCULAR: S1 and S2 muffled PULMONARY: diminished breath sounds bilaterally with course rhonchi noted. ABDOMEN: soft. non tender on exam non-distended, normoactive bowel sounds. No palpable organomegaly. MUSCULOSKELETAL: No joint swelling or deformity. EXTREMITIES: No cyanosis, clubbing, or pedal edema. NEUROLOGICAL: Gross neurological examination did not reveal any focal deficits. diffusely weak SKIN: No rashes. Assessment: Acute alcohol intoxication Troponin indeterminate Alcoholic hepatitis History of liver disease GI prophylaxis DVT prophylaxis Full code Plan: Recommend to continue with current medications and management with CIWA protocol. Recommend to continue with daily labs and replace electrolytes per protocol. PT to evaluate. Continue seizure precautions. Change lactulose to daily and hold for loose stools. Continue zimmerman for retention for now. Due to multiple medical issues, prognosis is guarded. The impression and plan of care has been dictated as a scribe by Jen Davenport, nurse practitioner as directed. MD Kyrie I have performed a history and examination and MDM of this patient, discussed the same with the dictator, and has been documented as a scribe. Based on total visit time, I have performed more than 50% of the visit. Any additional findings or plans will be noted. Objective - Vital Signs Vital signs: Vital Signs Temp 98.0 F 04/24/22 08:00 Pulse 93 04/24/22 08:00 Resp 18 04/24/22 08:00 BP 136/79 04/24/22 08:00 Pulse Ox 97 04/24/22 08:00 FiO2 Intake & Output 04/23/22 04/24/22 04/24/22 18:59 06:59 18:59 Intake Total 1440 970 0 Output Total 533 588 8829 Balance 640 370 -1550 Intake: IV 1040 Sodium Chloride 0.9% 1, 1040 000 ml @ 130 mls/hr IV . Q7H42M [facility] Rx#:[id number] Oral 400 970 0 Output: Urine 397 168 7074 Other: Voiding Method Indwelling Catheter Indwelling Catheter Indwelling Catheter # Bowel Movements 5 - Labs CBC & Chem 7: 04/24/22 07:22 04/24/22 07:22 Labs: Abnormal Lab Results - Last 24 Hours (Table) 04/24/22 04/24/22 Range/Units 07:22 07:22 WBC 3.7 L (3.8-10.6) k/uL RBC 3.50 L (3.80-5.40) m/uL Hct 33.6 L (34.0-46.0) % RDW 15.8 H (11.5-15.5) % Lymphocytes # 0.6 L (1.0-4.8) k/uL Sodium 129 L (137-145) mmol/L Potassium 3.0 L (3.5-5.1) mmol/L Carbon Dioxide 17 L (22-30) mmol/L Calcium 7.8 L (8.4-10.2) mg/dL Microbiology - Last 24 Hours (Table) 04/21/22 13:00 Blood Culture - Preliminary Blood No Growth after 48 hours 04/21/22 13:15 Blood Culture - Preliminary Blood No Growth after 48 hours
[2022-04-24] MEDS: SODIUM CHLORIDE 0.9% 1,000 ML IV SCH ×2 (13:26→20:30)
[2022-04-25] MEDS: LORazepam 1 MG TAB PO PRN ×2 (04:21→18:07)
[2022-04-25] MEDS: SODIUM CHLORIDE 0.9% 1,000 ML IV SCH ×2 (04:40→12:21)
[2022-04-25] MEDS: PANTOPRAZOLE 40 MG TABLET PO SCH (06:39)
[2022-04-25] MEDS: chlordiazePOXIDE 25 MG CAP PO SCH ×4 (08:32→21:01)
[2022-04-25] MEDS: cloNIDine HCL 0.1 MG TAB PO SCH ×3 (08:32→21:01)
[2022-04-25] MEDS: SPIRONOLACTONE 25 MG TAB PO SCH (08:32)
[2022-04-25] MEDS: LACTULOSE 20 GM/30 ML CUP PO SCH (08:32)
[2022-04-25] MEDS: FUROSEMIDE 20 MG TAB PO SCH (08:32)
[2022-04-25 09:59] LABS: African American GFR (CKD) >90 (>60 ml/min/1.73 sqM); Anion Gap 5 mmol/L; Blood Urea Nitrogen 5 mg/dL (7-17); Calcium 7.4 mg/dL (8.4-10.2); Carbon Dioxide 18 mmol/L (22-30); Chloride 107 mmol/L (98-107); Glucose 91 mg/dL (74-99); Non-African American GFR(CKD) >90 (>60 ml/min/1.73 sqM); Sodium 130 mmol/L (137-145)
[2022-04-25] MEDS: FOLIC ACID 1 MG TAB PO SCH (12:20)
[2022-04-25] MEDS: THIAMINE 100 MG TAB PO SCH (12:20)
[2022-04-25] MEDS: MULTIVITAMINS, THERA 1 EACH TAB PO SCH (12:20)
[2022-04-26] MEDS: PANTOPRAZOLE 40 MG TABLET PO SCH (06:21)
[2022-04-26] MEDS: SODIUM CHLORIDE 0.9% 1,000 ML IV SCH ×2 (06:28)
[2022-04-26 07:20] LABS: Anisocytosis Slight; HCT 32.7 % (34.0-46.0); HGB 11.3 gm/dL (11.4-16.0); MCH 33.8 pg (25.0-35.0); MCHC 34.6 g/dL (31.0-37.0); MCV 97.7 fL (80.0-100.0); Macrocytosis Slight; Mean Platelet Volume 7.5; RBC 3.35 m/uL (3.80-5.40); RDW 16.5 % (11.5-15.5); WBC 2.6 k/uL (3.8-10.6)
[2022-04-26 07:39] LABS: African American GFR (CKD) >90 (>60 ml/min/1.73 sqM); Anion Gap 9 mmol/L; Blood Urea Nitrogen 6 mg/dL (7-17); Calcium 7.7 mg/dL (8.4-10.2); Carbon Dioxide 17 mmol/L (22-30); Chloride 108 mmol/L (98-107); Glucose 88 mg/dL (74-99); Magnesium 1.3 mg/dL (1.6-2.3); Non-African American GFR(CKD) >90 (>60 ml/min/1.73 sqM); Potassium 3.5 mmol/L (3.5-5.1); Sodium 134 mmol/L (137-145)
[2022-04-26 08:42] LABS: Lymphocytes # (M) 0.75 k/uL (1.0-4.8); Monocytes # (M) 0.47 k/uL (0-1.0); Neutrophils # (M) 1.38 k/uL (1.3-7.7); Neutrophils % (M) 53 %; Nucleated Red Blood Cells 0 /100 WBC (0-0); Polychromasia Present; Total Cells Counted 100
[2022-04-26] MEDS ORDERED: ACETAMINOPHEN TAB 325 MG TAB PO PRN (08:57)
[2022-04-26] MEDS: FUROSEMIDE 20 MG TAB PO SCH (09:26)
[2022-04-26] MEDS: cloNIDine HCL 0.1 MG TAB PO SCH ×3 (09:26→22:42)
[2022-04-26] MEDS: chlordiazePOXIDE 25 MG CAP PO SCH ×4 (09:27→22:42)
[2022-04-26] MEDS: SPIRONOLACTONE 25 MG TAB PO SCH (09:30)
[2022-04-26] MEDS: LACTULOSE 20 GM/30 ML CUP PO SCH (09:31)
[2022-04-26 10:10] LABS: Mean Platelet Volume 8.7
[2022-04-26 10:13] LABS: Platelet Count 26 k/uL (150-450)
[2022-04-26 10:17] LABS: Platelet Count 26 k/uL (150-450)
[2022-04-26] MEDS ORDERED: Magnesium Replacement Protocol 1 EACH MISC MISCELLANE PRN (10:22)
[2022-04-26] MEDS: THIAMINE 100 MG TAB PO SCH (12:56)
[2022-04-26] MEDS: MAGNESIUM SULFATE-D5W PMX 1 GM in DEXTROSE/WATER 1 100ML.BAG IVPB SCH ×3 (12:56→17:24)
[2022-04-26] MEDS: MULTIVITAMINS, THERA 1 EACH TAB PO SCH (12:56)
[2022-04-26] MEDS: FOLIC ACID 1 MG TAB PO SCH (12:56)
--- NOTE | 2022-04-26 13:10 | P.CONS ---
History of Present Illness - Reason for Consult Consult date: 04/26/22 Pancytopenia Requesting physician: Jen Davenport - History of Present Illness Mrs Garcia is a 51 year old female with known chronic alcohol use, history of hepatitis C, prior history of drug use who presented with change in mental status and alcoholic intoxication. Hematology has been consulted regarding cytopenias. On evaluation she is lethargic but responds. WBC 2.6, Lymphopenia, Platelets 26K today and hemoglobim 11. Review of Systems All systems: negative Constitutional: Reports as per HPI Past Medical History Past Medical History: Eye Disorder, GERD/Reflux, GI Bleed, Liver Disease, Musculoskeletal Disorder, Neurologic Disorder, Seizure Disorder Additional Past Medical History / Comment(s): SEIZURE FROM ETOH, SHINGLE 6 YERAS AGO,MURMUR,TORN CATILAGE IN KNEES PER PTS MOTHER IN LAW-PT HAD LIVER FAILURE IN PAST, HEP C- NEVER TX (PAST HEROIN USE),AND BULEMIA.ANXIETY/ DEPRESSION, PAST SUICIDE ATTEMPS. "IN OCTOBER DRANK RUBBING ALCOHOL". FAMILT STATED PT TAKES SUBOXONE TO HELP HER NOT DRINK AND FOR PAIN IN LEGS/KNEES. Hep C Positive History of Any Multi-Drug Resistant Organisms: MRSA Year Discovered:: 04/20/16 MDRO Source:: [facility] Past Surgical History: Hernia Repair, Uterine Ablation Additional Past Surgical History / Comment(s): NOVOSURE ENDOMETRIAL ABLATION. PT HAD "THROAT BANDING DONE" Past Anesthesia/Blood Transfusion Reactions: No Reported Reaction Additional Past Anesthesia/Blood Transfusion Reaction / Comm: Pt received previous blood transfusion at [facility] per past medical record. Smoking Status: Vaper - Past Family History Father Family Medical History: No Reported History Mother Family Medical History: Cancer Additional Family Medical History / Comment(s): COLON AND LUNG CANCER- AT AGE 50 Medications and Allergies Home Medications Medication Instructions Recorded Confirmed Type Buprenorphine HCl/Naloxone HCl 1 film SUBLINGUAL BID 05/14/17 04/21/22 History [Suboxone 8 mg-2 mg Sl Film] levETIRAcetam [Keppra] 500 mg PO BID 06/18/17 04/21/22 History hydrOXYzine pamoate [hydrOXYzine 50 mg PO Q6H 09/11/20 04/21/22 History PAMOATE] tiZANidine [Zanaflex] 8 mg PO TID 09/11/20 04/21/22 History Furosemide [Lasix] 20 mg PO DAILY 04/21/22 04/21/22 History Gabapentin 1,200 mg PO TID 04/21/22 04/21/22 History Spironolactone 25 mg PO DAILY 04/21/22 04/21/22 History Allergies Allergy/AdvReac Type Severity Reaction Status Date / Time Penicillins Allergy Severe Rash/Hives Verified 04/21/22 12:53 Physical Exam Vitals: Vital Signs Temp Pulse Resp BP Pulse Ox 04/26/22 08:00 98.0 F 98 21 131/78 97 04/26/22 04:00 97.7 F 74 12 153/98 97 04/26/22 00:00 98.1 F 97 14 110/78 97 04/25/22 20:00 99.2 F 87 14 121/80 97 04/25/22 16:00 98.5 F 86 20 136/85 98 Intake and Output 04/25/22 04/26/22 04/26/22 22:59 06:59 14:59 Intake Total 600 420 Output Total 1800 1600 400 Balance -1200 -1600 20 Intake: Oral 600 420 Output: Urine 1800 1600 400 Straight 800 Other: Voiding Method Indwelling Catheter Indwelling Catheter # Voids 1 GENERAL: The patient is alert and oriented x2, lethargic HEENT: PERRLA. EOMI. no scleral icterus. No conjunctival pallor. Normocephalic, atraumatic. No pharyngeal erythema. No thyromegaly. CARDIOVASCULAR: S1 and S2 muffled PULMONARY: diminished breath sounds bilaterally with course rhonchi noted. ABDOMEN: soft. non tender on exam non-distended, normoactive bowel sounds. No palpable organomegaly. MUSCULOSKELETAL: No joint swelling or deformity. EXTREMITIES: No cyanosis, clubbing, or pedal edema. NEUROLOGICAL: Gross neurological examination did not reveal any focal deficits. diffusely weak Results CBC & Chem 7: 04/26/22 09:37 04/26/22 07:09 Labs: Abnormal Lab Results - Last 24 Hours (Table) 04/26/22 04/26/22 04/26/22 Range/Units 07:09 07:09 07:09 WBC 2.6 L (3.8-10.6) k/uL RBC 3.35 L (3.80-5.40) m/uL Hgb 11.3 L (11.4-16.0) gm/dL Hct 32.7 L (34.0-46.0) % RDW 16.5 H (11.5-15.5) % Plt Count 26 L (150-450) k/uL Lymphocytes # (Manual) 0.75 L (1.0-4.8) k/uL Sodium 134 L (137-145) mmol/L Chloride 108 H (98-107) mmol/L Carbon Dioxide 17 L (22-30) mmol/L BUN 6 L (7-17) mg/dL Calcium 7.7 L (8.4-10.2) mg/dL Magnesium 1.3 L (1.6-2.3) mg/dL Ammonia 30 H (<30) umol/L 04/26/22 Range/Units 09:37 WBC (3.8-10.6) k/uL RBC (3.80-5.40) m/uL Hgb (11.4-16.0) gm/dL Hct (34.0-46.0) % RDW (11.5-15.5) % Plt Count 26 L D (150-450) k/uL Lymphocytes # (Manual) (1.0-4.8) k/uL Sodium (137-145) mmol/L Chloride (98-107) mmol/L Carbon Dioxide (22-30) mmol/L BUN (7-17) mg/dL Calcium (8.4-10.2) mg/dL Magnesium (1.6-2.3) mg/dL Ammonia (<30) umol/L Microbiology - Last 24 Hours (Table) 04/21/22 13:15 Blood Culture - Preliminary Blood No Growth after 96 hours 04/21/22 13:00 Blood Culture - Preliminary Blood No Growth after 96 hours Assessment and Plan (1) Pancytopenia Narrative/Plan: - Likely secondary to bone marrow suppression and chronic liver disease from ETOH chronic use - Transfuse platelets <10, Hg<7. - Monitor bleeding and infection - Will assess other causes to ensure other potential causes are not in differential, but most likely secondary to above ETOH cessation to have chance at improvement Current Visit: Yes Status: Acute Code(s): D61.818 - OTHER PANCYTOPENIA SNOMED Code(s): 446837268 (2) Alcoholic intoxication Current Visit: Yes Status: Acute Code(s): F10.929 - ALCOHOL USE, UNSPECIFIED WITH INTOXICATION, UNSPECIFIED SNOMED Code(s): 43019283 (3) Alcohol withdrawal seizure Current Visit: No Status: Acute Code(s): F10.239 - ALCOHOL DEPENDENCE WITH WITHDRAWAL, UNSPECIFIED; R56.9 - UNSPECIFIED CONVULSIONS SNOMED Code(s): 271319695 (4) Alcohol withdrawal syndrome Current Visit: No Status: Acute Code(s): F10.239 - ALCOHOL DEPENDENCE WITH WITHDRAWAL, UNSPECIFIED SNOMED Code(s): 697702903
[2022-04-26 15:39] LABS: INR 1.2 (<1.2); Partial Thromboplastin Time 25.9 sec (22.0-30.0); Prothrombin Time 12.8 sec (9.0-12.0)
--- NOTE | 2022-04-26 16:12 | P.PN ---
Subjective Progress Note Date: 04/26/22 Patient is admitted with altered mental status and alcohol intoxication and is being closely monitored. Patient is seen today and per nursing staff is quite lethargic due to ativan and is maintained on CIWA protocol. Patient also continues on Librium QID and will continue. Patient tolerating oral intake and taking medications. Patient having multiple bowel movements and will make lactulose daily. Recommend to continue with indwelling zimmerman catheter for now. PT/OT to evaluate. Sodium is slightly improved at 129 today and potassium is 3.0 and recommend to replace K+ per protocol. Patient is afebrile and no reports of chest pain noted. Cardiology has evaluated the patient for elevated troponins. 04/26/2022 Patient is seen and evaluated today in follow-up a little more awake although continued with confusion and maintained on CIWA protocol. Patient continues on Librium along with Catapres and also recommend continue with lactulose and close monitoring. Patient has multiple electrolyte abnormalities including hyponatremia, hypokalemia, and severe hypomagnesemia. Hematology consulted as platelets were found initially to be 8 and a redraw was showing 26. Patient most likely with chronic pancytopenia secondary to continued alcohol use. Patient is afebrile and voiding after indwelling Zimmerman catheter has been removed. Patient is having bowel movements and asking when lunches coming. Patient is tolerating diet with no reports of nausea or vomiting noted. Recommend to continue to replace electrolytes per protocol and will follow-up with repeat labs. Will have physical therapy evaluate the patient as patient continues with weakness and discuss with case management about discharge planning. Patient is afebrile and denies any chest pain or shortness of breath. All medications have been reviewed Active Medications Acetaminophen (Acetaminophen Tab 325 Mg Tab) 650 mg PO Q6HR PRN PRN Reason: Fever and/ or Mild Pain Last Admin: 04/26/22 09:28 Dose: 650 mg Chlordiazepoxide HCl (Chlordiazepoxide 25 Mg Cap) 25 mg PO QID [facility] Last Admin: 04/26/22 12:56 Dose: 25 mg Clonidine (Clonidine Hcl 0.1 Mg Tab) 0.1 mg PO TID [facility] Last Admin: 04/26/22 15:09 Dose: 0.1 mg Folic Acid (Folic Acid 1 Mg Tab) 1 mg PO DAILY@1200 [facility] Last Admin: 04/26/22 12:56 Dose: 1 mg Furosemide (Furosemide 20 Mg Tab) 20 mg PO DAILY [facility] Last Admin: 04/26/22 09:26 Dose: 20 mg Potassium Chloride/Sodium Chloride (Ns-Kcl 20 Meq/L Iv Solution) 1,000 mls @ 75 mls/hr IV .[id number] [facility] Lactulose (Lactulose 20 Gm/30 Ml Cup) 20 gm PO DAILY [facility] Last Admin: 04/26/22 09:31 Dose: 20 gm Lorazepam (Lorazepam 1 Mg Tab) 1 mg PO Q2HR PRN PRN Reason: CIWA 8 or 9 Last Admin: 04/25/22 18:07 Dose: 1 mg Lorazepam (Lorazepam 1 Mg Tab) 1 mg PO Q1HR PRN PRN Reason: CIWA 10 to 15 Lorazepam (Lorazepam 1 Mg Tab) 2 mg PO Q10M PRN PRN Reason: CIWA 16 or higher Stop: 04/27/22 13:28 Miscellaneous Information (Magnesium Replacement Protocol 1 Each Misc) 1 each MISCELLANE DAILY PRN; Protocol PRN Reason: Per Protocol Multivitamins (Multivitamins, Thera 1 Each Tab) 1 each PO DAILY@1200 [facility] Last Admin: 04/26/22 12:56 Dose: 1 each Pantoprazole Sodium (Pantoprazole 40 Mg Tablet) 40 mg PO [id number] [facility] Last Admin: 04/26/22 06:21 Dose: 40 mg Spironolactone (Spironolactone 25 Mg Tab) 25 mg PO DAILY [facility] Last Admin: 04/26/22 09:30 Dose: 25 mg Thiamine HCl (Thiamine 100 Mg Tab) 100 mg PO DAILY@1200 [facility] Last Admin: 04/26/22 12:56 Dose: 100 mg PHYSICAL EXAMINATION: GENERAL: The patient is alert and oriented x2, more awake today although continues to be confused HEENT: PERRLA. EOMI. no scleral icterus. No conjunctival pallor. Normocephalic, atraumatic. No pharyngeal erythema. No thyromegaly. CARDIOVASCULAR: S1 and S2 muffled PULMONARY: diminished breath sounds bilaterally with course rhonchi noted. ABDOMEN: soft. non tender on exam non-distended, normoactive bowel sounds. No palpable organomegaly. MUSCULOSKELETAL: No joint swelling or deformity. EXTREMITIES: No cyanosis, clubbing, or pedal edema. NEUROLOGICAL: Gross neurological examination did not reveal any focal deficits. diffusely weak SKIN: No rashes. Assessment: Acute alcohol intoxication Troponin indeterminate Hypokalemia Hypomagnesemia Elevated ammonia Thrombocytopenia Alcoholic hepatitis History of liver disease GI prophylaxis DVT prophylaxis Full code Plan: Recommend to continue with current medications and management with CIWA protocol. Recommend to continue with daily labs and replace electrolytes per protocol. PT to evaluate. Zimmerman catheter has been removed and patient is voiding and reportedly having bowel movements. Recommend continue with lactulose as ammonia remains elevated and today level is 30. Hematology consulted for thrombocytopenia as platelets were found to be low at 26 and will follow-up with repeat labs. Continue seizure precautions. Will await PT notes and discuss with and social work about discharge planning. Due to multiple medical issues, prognosis is guarded. The impression and plan of care has been dictated as a scribe by Jen Davenport, nurse practitioner as directed. MD Kyrie I have performed a history and examination and MDM of this patient, discussed the same with the dictator, and has been documented as a scribe. Based on total visit time, I have performed more than 50% of the visit. Any additional findings or plans will be noted. Objective - Vital Signs Vital signs: Vital Signs Temp 97.8 F 04/26/22 15:52 Pulse 91 04/26/22 15:52 Resp 20 04/26/22 15:52 BP 137/80 04/26/22 15:52 Pulse Ox 99 04/26/22 15:52 FiO2 Intake & Output 04/25/22 04/26/22 04/26/22 18:59 06:59 18:59 Intake Total 718 600 600 Output Total 1500 3400 950 Balance -782 -2800 -350 Intake: IV 600 Sodium Chloride 0.9% 1, 600 000 ml @ 130 mls/hr IV . Q7H42M [facility] Rx#:[id number] Oral 118 600 600 Output: Urine 1500 3400 950 Straight 800 Other: Voiding Method Indwelling Catheter Indwelling Catheter Bedside Commode # Voids 1 # Bowel Movements 1 - Labs CBC & Chem 7: 04/26/22 09:37 04/26/22 07:09 Labs: Abnormal Lab Results - Last 24 Hours (Table) 04/26/22 04/26/22 04/26/22 Range/Units 07:09 07:09 07:09 WBC 2.6 L (3.8-10.6) k/uL RBC 3.35 L (3.80-5.40) m/uL Hgb 11.3 L (11.4-16.0) gm/dL Hct 32.7 L (34.0-46.0) % RDW 16.5 H (11.5-15.5) % Plt Count 26 L (150-450) k/uL Lymphocytes # (Manual) 0.75 L (1.0-4.8) k/uL ESR (0-20) mm/hr PT (9.0-12.0) sec INR (<1.2) Sodium 134 L (137-145) mmol/L Chloride 108 H (98-107) mmol/L Carbon Dioxide 17 L (22-30) mmol/L BUN 6 L (7-17) mg/dL Calcium 7.7 L (8.4-10.2) mg/dL Magnesium 1.3 L (1.6-2.3) mg/dL Ammonia 30 H (<30) umol/L Lactate Dehydrogenase (313-618) U/L 04/26/22 04/26/22 04/26/22 Range/Units 07:09 09:37 15:16 WBC (3.8-10.6) k/uL RBC (3.80-5.40) m/uL Hgb (11.4-16.0) gm/dL Hct (34.0-46.0) % RDW (11.5-15.5) % Plt Count 26 L D (150-450) k/uL Lymphocytes # (Manual) (1.0-4.8) k/uL ESR 25 H (0-20) mm/hr PT 12.8 H (9.0-12.0) sec INR 1.2 H (<1.2) Sodium (137-145) mmol/L Chloride (98-107) mmol/L Carbon Dioxide (22-30) mmol/L BUN (7-17) mg/dL Calcium (8.4-10.2) mg/dL Magnesium (1.6-2.3) mg/dL Ammonia (<30) umol/L Lactate Dehydrogenase (313-618) U/L 04/26/22 Range/Units 15:16 WBC (3.8-10.6) k/uL RBC (3.80-5.40) m/uL Hgb (11.4-16.0) gm/dL Hct (34.0-46.0) % RDW (11.5-15.5) % Plt Count (150-450) k/uL Lymphocytes # (Manual) (1.0-4.8) k/uL ESR (0-20) mm/hr PT (9.0-12.0) sec INR (<1.2) Sodium (137-145) mmol/L Chloride (98-107) mmol/L Carbon Dioxide (22-30) mmol/L BUN (7-17) mg/dL Calcium (8.4-10.2) mg/dL Magnesium (1.6-2.3) mg/dL Ammonia (<30) umol/L Lactate Dehydrogenase 792 H (313-618) U/L Microbiology - Last 24 Hours (Table) 04/21/22 13:00 Blood Culture - Preliminary Blood No Growth after 120 hours 04/21/22 13:15 Blood Culture - Preliminary Blood No Growth after 120 hours
[2022-04-26] MEDS: 0.9% NACL WITH KCL 20 MEQ/L 1,000 ML IV SCH (22:27)
[2022-04-26 23:53] LABS: % Iron Saturation 9.08 (12.00-45.00)
[2022-04-27] MEDS: 0.9% NACL WITH KCL 20 MEQ/L 1,000 ML IV SCH (00:20)
[2022-04-27 05:34] VITALS: RESP 18
[2022-04-27 06:37] LABS: Free Kappa Lt Chain Qnt, Serum 6.98 mg/dL (0.33-1.94); Free Lambda Lt Chain Qnt, Seru 8.04 mg/dL (0.57-2.63)
[2022-04-27] MEDS: PANTOPRAZOLE 40 MG TABLET PO SCH (07:12)
[2022-04-27 09:08] LABS: ALT 52 U/L (4-34); African American GFR (CKD) >90 (>60 ml/min/1.73 sqM); Albumin 2.5 g/dL (3.5-5.0); Alkaline Phosphatase 432 U/L (38-126); Anion Gap 9 mmol/L; Calcium 7.6 mg/dL (8.4-10.2); Carbon Dioxide 17 mmol/L (22-30); Chloride 108 mmol/L (98-107); Glucose 133 mg/dL (74-99); Magnesium 1.7 mg/dL (1.6-2.3); Non-African American GFR(CKD) >90 (>60 ml/min/1.73 sqM); Potassium 3.4 mmol/L (3.5-5.1); Sodium 134 mmol/L (137-145)
[2022-04-27 09:09] LABS: AST 136 U/L (14-36); Blood Urea Nitrogen 7 mg/dL (7-17); Total Bilirubin 2.4 mg/dL (0.2-1.3); Total Protein 5.2 g/dL (6.3-8.2)
[2022-04-27] MEDS ORDERED: MAGNESIUM OXIDE 400 MG TAB PO SCH (09:30)
[2022-04-27] MEDS ORDERED: POTASSIUM CHLORIDE ER 20 MEQ TAB.ER PO SCH (09:30)
[2022-04-27] MEDS: cloNIDine HCL 0.1 MG TAB PO SCH ×2 (09:34→18:32)
[2022-04-27] MEDS: chlordiazePOXIDE 25 MG CAP PO SCH ×3 (09:34→18:32)
[2022-04-27] MEDS: FUROSEMIDE 20 MG TAB PO SCH (09:34)
[2022-04-27] MEDS: SPIRONOLACTONE 25 MG TAB PO SCH (09:34)
[2022-04-27] MEDS: THIAMINE 100 MG TAB PO SCH (09:34)
[2022-04-27] MEDS: FOLIC ACID 1 MG TAB PO SCH (09:35)
[2022-04-27] MEDS: MULTIVITAMINS, THERA 1 EACH TAB PO SCH (09:35)
[2022-04-27] MEDS: LACTULOSE 20 GM/30 ML CUP PO SCH (09:35)
[2022-04-27 09:38] LABS: Anisocytosis Slight; Basophils % (A) 1 %; Eosinophils % (A) 0 %; HCT 33.1 % (34.0-46.0); Hypochromasia Slight; Lymphocytes # (A) 0.5 k/uL (1.0-4.8); Lymphocytes % (A) 29 %; MCH 33.2 pg (25.0-35.0); MCHC 33.2 g/dL (31.0-37.0); MCV 100.1 fL (80.0-100.0); Macrocytosis Slight; Mean Platelet Volume 5.6; Monocytes # (A) 0.3 k/uL (0-1.0); Monocytes % (A) 14 %; Neutrophils % (A) 53 %; RBC 3.31 m/uL (3.80-5.40); RDW 16.7 % (11.5-15.5); WBC 1.8 k/uL (3.8-10.6)
[2022-04-27] MEDS ORDERED: CYANOCOBALAMIN 1,000 MCG/ML 1 ML VIAL IM ONE (11:01)
[2022-04-27] MEDS ORDERED: POTASSIUM CHLORIDE ER 20 MEQ TAB.ER PO STA (11:03)
[2022-04-27 11:57] VITALS: BP 142/99; PULSE 89; TEMP 97.2
[2022-04-27 14:14] VITALS: BMI 26.2
[2022-04-27 16:52] LABS: Albumin 2.96 g/dL (3.80-4.90); Gamma Globulin 1.31 g/dL (0.70-1.50)
--- NOTE | 2022-04-27 18:23 | P.DS ---
Providers Date of admission: 04/21/22 15:55 Expected date of discharge: 04/27/22 Attending physician: Forest Hall Consults: 04/21/22 15:51 Consult Physician Routine Consulting Provider: Kimi Leung Consult Reason/Comments: elevated troponin Do you want consulting provider notified?: Yes 04/26/22 10:22 Consult Physician Urgent Consulting Provider: Michael Perdomo Consult Reason/Comments: thrombocytopenia/ chronic etoh Do you want consulting provider notified?: Yes Primary care physician: Stated None Hospital Course: Final diagnosis Acute alcohol intoxication Troponin indeterminate Hypokalemia Hypomagnesemia Elevated ammonia Thrombocytopenia Alcoholic hepatitis History of liver disease GI prophylaxis DVT prophylaxis Full code Discharge disposition Patient is being discharged in a stable condition with guarded prognosis to home. Patient will follow-up with pcp in the outpatient setting upon discharge. Patient follows with psychiatry and pain management as a MAPS was performed on patient. Recommend follow up with pcp in 1-2 days. APS possibly involved. Total time taken is greater than 35 minutes. Hospital Course This is a 51-year-old female who was recently admitted with etoh abuse and altered mental status with multiple electrolyte imbalances. Also thrombocytopenia and hematology following. Patient has extensive history of alcohol abuse and continues to drink. Recommend following up with pcp and psychiatry along with her pain management specialists on discharge with medication adjustments needed. Patient initially with weakness and has been evaluated by physical therapy and ok to go home with home care. Patient lives with family and will be returning home with them. Patient is requesting to go home. Currently no reports of chest pain, shortness of breath, or palpitations. Patient is afebrile. No reports of nausea or vomiting and patient is tolerating diet. Patient will be discharged home today. Guarded prognosis as patient is high risk for readmissions and noncompliance with continued substance abuse. Physical Exam: General: On exam vital signs are stable. Alert and oriented x 3. Anxious Cardio: S1, S2 are muffled. Respiratory system: shows diminished breath sounds at the bases with no wheezing or rhonchi noted. GI: Abdomen is soft and and nontender. Neuro: Nervous system shows no focal deficits, generalized delay Skin: multiple bruises noted on upper and lower extremities Please refer to medication reconciliation sheet for a list of medications. The impression and plan of care has been dictated by Jen Davenport, Nurse Practitioner as directed. Dr. Sumit MD I have performed a history and examination and MDM of this patient, discussed the same with the dictator, and agree with the dictator's assessment and plan as written ,documented as a scribe. Based on total visit time, I have performed more than 50% of the visit. Patient Condition at Discharge: Fair Plan - Discharge Summary Discharge Rx Participant: No New Discharge Prescriptions: New Lactulose [Cephulac] 20 gm PO DAILY 30 Days #30 each Folic Acid 1 mg PO DAILY@1200 #30 tab chlordiazePOXIDE HCl [Librium] 25 mg PO TID #12 cap Magnesium Oxide [Mag-Ox] 400 mg PO BID 30 Days #60 tab cloNIDine HCL [Catapres] 0.1 mg PO BID 30 Days #60 tab Multivitamins, Thera [Multivitamin (formulary)] 1 each PO DAILY@1200 #30 tab Acetaminophen Tab [Tylenol] 650 mg PO Q6HR PRN tab PRN Reason: Fever and/ or Mild Pain Thiamine [Vitamin B-1] 100 mg PO DAILY@1200 #30 tab Continue levETIRAcetam [Keppra] 500 mg PO BID hydrOXYzine pamoate [hydrOXYzine PAMOATE] 50 mg PO Q6H Spironolactone 25 mg PO DAILY Discontinued Buprenorphine HCl/Naloxone HCl [Suboxone 8 mg-2 mg Sl Film] 1 film SUBLINGUAL BID tiZANidine [Zanaflex] 8 mg PO TID Gabapentin 1,200 mg PO TID Furosemide [Lasix] 20 mg PO DAILY Discharge Medication List levETIRAcetam [Keppra] 500 mg PO BID 06/18/17 [History] hydrOXYzine pamoate [hydrOXYzine PAMOATE] 50 mg PO Q6H 09/11/20 [History] Spironolactone 25 mg PO DAILY 04/21/22 [History] Acetaminophen Tab [Tylenol] 650 mg PO Q6HR PRN tab 04/27/22 [Rx] Folic Acid 1 mg PO DAILY@1200 #30 tab 04/27/22 [Rx] Lactulose [Cephulac] 20 gm PO DAILY 30 Days #30 each 04/27/22 [Rx] Magnesium Oxide [Mag-Ox] 400 mg PO BID 30 Days #60 tab 04/27/22 [Rx] Multivitamins, Thera [Multivitamin (formulary)] 1 each PO DAILY@1200 #30 tab 04/27/22 [Rx] Thiamine [Vitamin B-1] 100 mg PO DAILY@1200 #30 tab 04/27/22 [Rx] chlordiazePOXIDE HCl [Librium] 25 mg PO TID #12 cap 04/27/22 [Rx] cloNIDine HCL [Catapres] 0.1 mg PO BID 30 Days #60 tab 04/27/22 [Rx] Follow up Appointment(s)/Referral(s): None,Stated [Primary Care Provider] - 1-2 days Ambulatory/Diagnostic Orders: Complete Blood Count w/diff [LAB.AMB] Time Frame: 3 Days, Location: None Selected Patient Instructions/Handouts: Heart Attack (DC), Heart Healthy Diet (ED), Abuse of Alcohol (ED), Polysubstance Abuse (ED), Alcohol Dependence (ED), Pancytopenia (DC) Activity/Diet/Wound Care/Special Instructions: Activity Limited until follow-up Follow-up with primary care provider on discharge Continue to avoid all alcohol and drug use Take medications as prescribed Follow-up with your apprentice painter neckties Follow-up with [facility] for outpatient resources Recommend repeat labs in 2-3 days Discharge Disposition: HOME SELF-CARE
[2022-04-28 08:13] LABS: Methylmalonic Acid 0.28 umol/L (<0.40)
== END 2022-04-27 19:25 | disposition home or self-care (01) | DRG 897 ==
LOC: EC 12:41 → 3SCARD 15:55
PROVIDERS: ADMIT Hospitalist; ATTEND Hospitalist
DX: F10.229 Alcohol dependence with intoxication, unspecified (principal); E87.1 Hypo-osmolality and hyponatremia; D61.818 Other pancytopenia; Y90.8 Blood alcohol level of 240 mg/100 ml or more; E83.42 Hypomagnesemia; E87.6 Hypokalemia; F10.239 Alcohol dependence with withdrawal, unspecified; F17.200 Nicotine dependence, unspecified, uncomplicated; F31.9 Bipolar disorder, unspecified; F41.0 Panic disorder [episodic paroxysmal anxiety]; F41.9 Anxiety disorder, unspecified; G40.909 Epilepsy, unspecified, not intractable, without status epilepticus; I35.1 Nonrheumatic aortic (valve) insufficiency; K70.10 Alcoholic hepatitis without ascites; Z79.899 Other long term (current) drug therapy; Z91.51 Personal history of suicidal behavior
CPT/HCPCS: 36415; 70450; 70496; 70498; 71045; 80048; 80053; 80143; 80179; 80306; 80320; 82140; 82550; 82607; 82728; 82746; 82784; 82803; 83540; 83550; 83605; 83615; 83690; 83735; 83883; 83921; 83930; 84165; 84425; 84443; 84484; 85025; 85049; 85384; 85610; 85652; 85730; 86038; 86334; 86431; 87040; 93005; 93306; 94760; 96360; 99291

== ENCOUNTER 2022-07-27 17:31 | Inpatient (IN) | payer MEDICARE, OTHER ==
[2022-07-27] MEDS ORDERED: SODIUM CHLORIDE 0.9% 1,000 ML IV STA (17:37)
[2022-07-27] MEDS ORDERED: LORazepam 2 MG/ML INJ IV STA (17:37)
[2022-07-27] MEDS ORDERED: SODIUM CHLORIDE 0.9% 500 ML 500 ML IV ONE (17:37)
[2022-07-27] MEDS ORDERED: THIAMINE 100 MG/ML 2 ML VIAL IM STA (17:40)
--- NOTE | 2022-07-27 17:45 | ED ---
Altered Mental Status HPI - General Chief Complaint: Altered Mental Status Stated Complaint: Alcohol withdrawl, Unresponsive Source: EMS Mode of arrival: EMS Limitations: altered mental status - History of Present Illness Initial Comments: This patient is a 51-year-old woman brought by ambulance to have evaluation for altered mental status. The patient's family had called ambulance and reported that she had gone to bed last night in her usual state and then this morning she was not making any sense. Patient was not able to give any history due to EMS. On arrival, the patient is not responding to any questions. Patient does moan but not speaking. The patient reportedly has history of previous alcohol use they did not acknowledge any current use. Patient reported to have history of previous encephalopathy. Patient also had incontinence of stool on scene. MD Complaint: altered mental status Onset/Timin -: days(s) Severity: severe Context: alcohol abuse - Related Data Home Medications Medication Instructions Recorded Confirmed levETIRAcetam [Keppra] 500 mg PO BID 06/18/17 07/28/22 Spironolactone 25 mg PO BID 04/21/22 07/28/22 Bumetanide [BUMEX] 0.5 mg PO DAILY 07/28/22 07/28/22 Buprenorphine/Naloxone 8Mg/2Mg 0.5 film SL DAILY@1500 07/28/22 07/28/22 [Suboxone 8-2Mg Film] Buprenorphine/Naloxone 8Mg/2Mg 1 film SL BID 07/28/22 07/28/22 [Suboxone 8-2Mg Film] Gabapentin [Neurontin] 800 mg PO TID 07/28/22 07/28/22 Midodrine [ProAmatine] 5 mg PO TID 07/28/22 07/28/22 Mirtazapine [Remeron] 45 mg PO HS 07/28/22 07/28/22 Propranolol LA [Inderal LA] 60 mg PO DAILY 07/28/22 07/28/22 Rifaximin [Xifaxan] 550 mg PO BID 07/28/22 07/28/22 busPIRone HCL 15 mg PO BID 07/28/22 07/28/22 chlorproMAZINE [Thorazine] 25 mg PO HS 07/28/22 07/28/22 tiZANidine HCL 8 mg PO TID 07/28/22 07/28/22 Allergies Allergy/AdvReac Type Severity Reaction Status Date / Time Penicillins Allergy Severe Rash/Hives Verified 04/21/22 12:53 Review of Systems ROS Statement: Those systems with pertinent positive or pertinent negative responses have been documented in the HPI. ROS Other: All systems not noted in ROS Statement are negative. 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 "IN OCTOBER DRANK RUBBING ALCOHOL". FAMILT STATED PT TAKES SUBOXONE TO HELP HER NOT DRINK AND FOR PAIN IN LEGS/KNEES. Hep C Positive History of Any Multi-Drug Resistant Organisms: MRSA Date of last positivie culture/infection: 04/20/16 MDRO Source:: SPUTUM Past Surgical History: Hernia Repair, Uterine Ablation Additional Past Surgical History / Comment(s): NOVOSURE ENDOMETRIAL ABLATION. PT HAD "THROAT BANDING DONE" Past Anesthesia/Blood Transfusion Reactions: No Reported Reaction Additional Past Anesthesia/Blood Transfusion Reaction / Comment(s): Pt received previous blood transfusion at [facility] per past medical record. Past Psychological History: Anxiety, Bipolar, Depression, Panic Disorder Smoking Status: Vaper Past Alcohol Use History: Abuse, Heavy Past Drug Use History: IV Drug Use - Past Family History Father Family Medical History: No Reported History Mother Family Medical History: Cancer Additional Family Medical History / Comment(s): COLON AND LUNG CANCER- AT AGE 50 General Exam Limitations: altered mental status General appearance: obtunded Head exam: Present: atraumatic, normocephalic Eye exam: Present: EOMI. Absent: scleral icterus, conjunctival injection ENT exam: Present: mucous membranes dry Neck exam: Present: normal inspection. Absent: tenderness, meningismus Respiratory exam: Present: rhonchi. Absent: respiratory distress, wheezes, rales, stridor, accessory muscle use, decreased breath sounds Cardiovascular Exam: Present: normal rhythm, tachycardia, systolic murmur. Absent: diastolic murmur, rubs, gallop GI/Abdominal exam: Present: soft. Absent: distended, tenderness, guarding, rebound, rigid, mass, pulsatile mass Extremities exam: Present: normal inspection, normal capillary refill. Absent: pedal edema, calf tenderness Back exam: Present: normal inspection Neurological exam: Present: altered, other (Patient noncompliant with neurologic exam. She does move all 4 extremities without obvious focal deficit. Patient GCS is 11) Expanded Eye Response: (4) open spontaneously Motor Response: (5) localizes to pain Verbal Response: incomprehensible sounds [place] Total: 11 Skin exam: Present: warm, dry, intact, normal color. Absent: rash Course Vital Signs 07/27/22 07/27/22 07/27/22 17:32 19:27 19:32 Temperature Pulse Rate 100 96 102 H Respiratory 16 18 10 L Rate Blood Pressure 149/128 153/100 130/90 Blood Pressure [Supine] O2 Sat by Pulse 99 94 L 94 L Oximetry 07/27/22 07/28/22 07/28/22 23:06 06:12 07:21 Temperature 98.4 F 98.3 F Pulse Rate 94 102 H 96 Respiratory 10 L 18 13 Rate Blood Pressure 117/74 144/48 160/90 Blood Pressure [Supine] O2 Sat by Pulse 95 96 95 Oximetry 07/28/22 07/28/22 07/28/22 08:00 09:45 12:36 Temperature 97.4 F L Pulse Rate 65 104 H Respiratory 16 13 12 Rate Blood Pressure 147/78 120/86 Blood Pressure 162/78 [Supine] O2 Sat by Pulse 94 L 96 98 Oximetry 07/28/22 14:51 Temperature Pulse Rate 101 H Respiratory 14 Rate Blood Pressure 134/87 Blood Pressure [Supine] O2 Sat by Pulse 98 Oximetry Medical Decision Making - Medical Decision Making This patient is a 51-year-old woman admitted for altered mental status. Differential includes hepatic encephalopathy although the ammonia not extremely elevated, alcohol withdrawal, prolonged postictal state though no definite observed seizure. We'll admit patient for further evaluation and treatment. Medications started emergency department. - Lab Data Result diagrams: 07/29/22 04:23 07/29/22 07:07 Lab Results 07/27/22 07/27/22 07/27/22 Range/Units 18:06 18:06 18:06 WBC 16.4 H (3.8-10.6) k/uL RBC 4.97 (3.80-5.40) m/uL Hgb 14.2 (11.4-16.0) gm/dL Hct 44.5 (34.0-46.0) % MCV 89.6 (80.0-100.0) fL MCH 28.5 (25.0-35.0) pg MCHC 31.8 (31.0-37.0) g/dL RDW 15.3 (11.5-15.5) % Plt Count 67 L (150-450) k/uL MPV 10.9 Neutrophils % 85 % Lymphocytes % 7 % Monocytes % 5 % Eosinophils % 0 % Basophils % 0 % Neutrophils # 13.9 H (1.3-7.7) k/uL Lymphocytes # 1.2 (1.0-4.8) k/uL Monocytes # 0.9 (0-1.0) k/uL Eosinophils # 0.1 (0-0.7) k/uL Basophils # 0.1 (0-0.2) k/uL Hypochromasia Slight PT 11.5 (9.0-12.0) sec INR 1.1 (<1.2) APTT 23.4 (22.0-30.0) sec Sodium 140 (137-145) mmol/L Potassium 5.4 H (3.5-5.1) mmol/L Chloride 105 (98-107) mmol/L Carbon Dioxide 23 (22-30) mmol/L Anion Gap 12 mmol/L BUN 44 H (7-17) mg/dL Creatinine 1.43 H (0.52-1.04) mg/dL Est GFR (CKD-EPI)AfAm 49 (>60 ml/min/1.73 sqM) Est GFR (CKD-EPI)NonAf 43 (>60 ml/min/1.73 sqM) Glucose 129 H (74-99) mg/dL POC Glucose (mg/dL) (70-110) mg/dL POC Glu Event Organizer ID Lactic Ac Sepsis Rflx Plasma Lactic Acid Mariusz (0.7-2.0) mmol/L Calcium 9.1 (8.4-10.2) mg/dL Magnesium 2.5 H (1.6-2.3) mg/dL Total Bilirubin 1.7 H (0.2-1.3) mg/dL AST 47 H (14-36) U/L ALT 29 (4-34) U/L Alkaline Phosphatase 207 H (38-126) U/L Ammonia (<30) umol/L Troponin I (0.000-0.034) ng/mL Total Protein 7.9 (6.3-8.2) g/dL Albumin 4.0 (3.5-5.0) g/dL Serum Alcohol <10 mg/dL 07/27/22 07/27/22 07/27/22 Range/Units 18:06 18:06 18:40 WBC (3.8-10.6) k/uL RBC (3.80-5.40) m/uL Hgb (11.4-16.0) gm/dL Hct (34.0-46.0) % MCV (80.0-100.0) fL MCH (25.0-35.0) pg MCHC (31.0-37.0) g/dL RDW (11.5-15.5) % Plt Count (150-450) k/uL MPV Neutrophils % % Lymphocytes % % Monocytes % % Eosinophils % % Basophils % % Neutrophils # (1.3-7.7) k/uL Lymphocytes # (1.0-4.8) k/uL Monocytes # (0-1.0) k/uL Eosinophils # (0-0.7) k/uL Basophils # (0-0.2) k/uL Hypochromasia PT (9.0-12.0) sec INR (<1.2) APTT (22.0-30.0) sec Sodium (137-145) mmol/L Potassium (3.5-5.1) mmol/L Chloride (98-107) mmol/L Carbon Dioxide (22-30) mmol/L Anion Gap mmol/L BUN (7-17) mg/dL Creatinine (0.52-1.04) mg/dL Est GFR (CKD-EPI)AfAm (>60 ml/min/1.73 sqM) Est GFR (CKD-EPI)NonAf (>60 ml/min/1.73 sqM) Glucose (74-99) mg/dL POC Glucose (mg/dL) (70-110) mg/dL POC Glu Event Organizer ID Lactic Ac Sepsis Rflx Y Plasma Lactic Acid Mariusz 2.7 H* (0.7-2.0) mmol/L Calcium (8.4-10.2) mg/dL Magnesium (1.6-2.3) mg/dL Total Bilirubin (0.2-1.3) mg/dL AST (14-36) U/L ALT (4-34) U/L Alkaline Phosphatase (38-126) U/L Ammonia 88 H (<30) umol/L Troponin I <0.012 (0.000-0.034) ng/mL Total Protein (6.3-8.2) g/dL Albumin (3.5-5.0) g/dL Serum Alcohol mg/dL 07/27/22 Range/Units 20:42 WBC (3.8-10.6) k/uL RBC (3.80-5.40) m/uL Hgb (11.4-16.0) gm/dL Hct (34.0-46.0) % MCV (80.0-100.0) fL MCH (25.0-35.0) pg MCHC (31.0-37.0) g/dL RDW (11.5-15.5) % Plt Count (150-450) k/uL MPV Neutrophils % % Lymphocytes % % Monocytes % % Eosinophils % % Basophils % % Neutrophils # (1.3-7.7) k/uL Lymphocytes # (1.0-4.8) k/uL Monocytes # (0-1.0) k/uL Eosinophils # (0-0.7) k/uL Basophils # (0-0.2) k/uL Hypochromasia PT (9.0-12.0) sec INR (<1.2) APTT (22.0-30.0) sec Sodium (137-145) mmol/L Potassium (3.5-5.1) mmol/L Chloride (98-107) mmol/L Carbon Dioxide (22-30) mmol/L Anion Gap mmol/L BUN (7-17) mg/dL Creatinine (0.52-1.04) mg/dL Est GFR (CKD-EPI)AfAm (>60 ml/min/1.73 sqM) Est GFR (CKD-EPI)NonAf (>60 ml/min/1.73 sqM) Glucose (74-99) mg/dL POC Glucose (mg/dL) 111 H (70-110) mg/dL POC Glu Event Organizer ID Jake [place] Ac Sepsis Rflx Plasma Lactic Acid Mariusz (0.7-2.0) mmol/L Calcium (8.4-10.2) mg/dL Magnesium (1.6-2.3) mg/dL Total Bilirubin (0.2-1.3) mg/dL AST (14-36) U/L ALT (4-34) U/L Alkaline Phosphatase (38-126) U/L Ammonia (<30) umol/L Troponin I (0.000-0.034) ng/mL Total Protein (6.3-8.2) g/dL Albumin (3.5-5.0) g/dL Serum Alcohol mg/dL - EKG Data -: EKG Interpreted by Me EKG shows normal: sinus rhythm, axis (Normal), intervals (Normal), QRS complexes (Normal) Rate: tachycardia (Rate 110 bpm) Critical Care Time Critical Care Time: Yes (30 minutes) Disposition Clinical Impression: Altered mental status, Hepatic encephalopathy, Hyperammonemia, Lactic acidosis, Thrombocytopenia Disposition: ADMITTED IP TO THIS [facility] Condition: Serious
[2022-07-27 18:12] LABS: Basophils # (A) 0.1 k/uL (0-0.2); Basophils % (A) 0 %; Eosinophils # (A) 0.1 k/uL (0-0.7); Eosinophils % (A) 0 %; HCT 44.5 % (34.0-46.0); HGB 14.2 gm/dL (11.4-16.0); Hypochromasia Slight; Lymphocytes # (A) 1.2 k/uL (1.0-4.8); Lymphocytes % (A) 7 %; MCH 28.5 pg (25.0-35.0); MCHC 31.8 g/dL (31.0-37.0); MCV 89.6 fL (80.0-100.0); Mean Platelet Volume 10.9; Monocytes # (A) 0.9 k/uL (0-1.0); Monocytes % (A) 5 %; Neutrophils # (A) 13.9 k/uL (1.3-7.7); Neutrophils % (A) 85 %; RBC 4.97 m/uL (3.80-5.40); RDW 15.3 % (11.5-15.5); WBC 16.4 k/uL (3.8-10.6)
[2022-07-27 18:15] LABS: Platelet Count 67 k/uL (150-450)
[2022-07-27 18:24] LABS: ALT 29 U/L (4-34); AST 47 U/L (14-36); African American GFR (CKD) 49 (>60 ml/min/1.73 sqM); Alcohol <10 mg/dL; Alkaline Phosphatase 207 U/L (38-126); Anion Gap 12 mmol/L; Blood Urea Nitrogen 44 mg/dL (7-17); Calcium 9.1 mg/dL (8.4-10.2); Carbon Dioxide 23 mmol/L (22-30); Chloride 105 mmol/L (98-107); Glucose 129 mg/dL (74-99); INR 1.1 (<1.2); Magnesium 2.5 mg/dL (1.6-2.3); Non-African American GFR(CKD) 43 (>60 ml/min/1.73 sqM); Partial Thromboplastin Time 23.4 sec (22.0-30.0); Potassium 5.4 mmol/L (3.5-5.1); Prothrombin Time 11.5 sec (9.0-12.0); Sodium 140 mmol/L (137-145); Total Bilirubin 1.7 mg/dL (0.2-1.3); Total Protein 7.9 g/dL (6.3-8.2)
[2022-07-27 18:40] LABS: Lactic Acid, Venous 2.7 mmol/L (0.7-2.0)
--- NOTE | 2022-07-27 18:53 | CT ---
EXAMINATION TYPE: CT brain wo con DATE OF EXAM: 07/27/2022 COMPARISON: 04/21/2022 HISTORY: Altered mental status CT DLP: 1318.4 mGycm Automated exposure control for dose reduction was used. Images of the brain obtained with no contrast. Ventricles have normal size. There is no mass effect or midline shift. No sign of intracranial hemorr lali. The calvarium is intact. There is normal aeration of the mastoid sinuses. IMPRESSION: Normal unenhanced head CT scan. No change.
--- NOTE | 2022-07-27 18:57 | XR ---
EXAMINATION TYPE: XR chest 1V portable DATE OF EXAM: 07/27/2022 COMPARISON: 04/21/2022 HISTORY: Altered mental status TECHNIQUE: Single view FINDINGS: There is some pulmonary interstitial and airspace edema. Heart is top normal in size. 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 Mediastinum is normal. There are no hilar masses. IMPRESSION: There is some pulmonary edema which is increased compared to the old exam and could be pn eumonia and/or heart failure.
[2022-07-27] MEDS ORDERED: PANTOPRAZOLE 40 MG/10 ML VIAL IVP STA (20:02)
[2022-07-27] MEDS ORDERED: LACTULOSE 20 GM/30 ML CUP PO ONE (20:06)
[2022-07-27 20:44] LABS: Glucose,Whole Blood 111 mg/dL (70-110)
[2022-07-27] MEDS ORDERED: NALOXONE 0.4 MG/ML 1 ML VIAL IV PRN (22:33)
[2022-07-27] MEDS ORDERED: ONDANSETRON 4 MG/2 ML VIAL IVP PRN (22:33)
[2022-07-27] MEDS ORDERED: LACTULOSE 20 GM/30 ML CUP PO PRN (22:33)
[2022-07-27] MEDS ORDERED: LORazepam 2 MG/ML INJ IV PRN ×3 (22:45)
[2022-07-27] MEDS ORDERED: levETIRAcetam IV 1,000 MG in SALINE 1 100ML.BAG IVPB STA (22:45)
[2022-07-27 23:35] LABS: Appearance,Urine Clear (Clear); Bilirubin,Urine Negative (Negative); Blood,Urine Large (Negative); Color,Urine Yellow; Glucose,Urine (UA) Negative (Negative); Ketones,Urine Negative (Negative); Leukocyte Esterase,Urine Negative (Negative); Mucus,Urine Rare /hpf; Nitrite,Urine Negative (Negative); PH, Urine 6.5 (5.0-8.0); Protein,Urine 2+ (Negative); RBC,Urine 15 /hpf (0-5); Specific Gravity,Urine 1.011 (1.001-1.035); Urobilinogen,Urine <2.0 mg/dL (<2.0); WBC,Urine 1 /hpf (0-5)
[2022-07-27 23:37] LABS: Amphetamine Screen,Urine Not Detected (NotDetected); Barbiturate Screen,Urine Not Detected (NotDetected); Benzodiazepines Screen,Urine Detected (NotDetected); Cocaine Screen,Urine Not Detected (NotDetected); Methadone Screen, Urine Not Detected (NotDetected); Opiate Screen,Urine Not Detected (NotDetected); Oxycodone Screen, Urine Not Detected (NotDetected); Phencyclidine Screen,Urine Not Detected (NotDetected); Tricyclic Antidepressant,Urine Not Detected (NotDetected); Urn Cannabinoid Scrn Not Detected (NotDetected)
--- NOTE | 2022-07-27 23:51 | P.HPIM ---
History of Present Illness H&P Date: 07/27/22 Chief Complaint: Altered mental status 51-year-old female with alcohol abuse, seizure Patient was brought in by EMS due to altered mental status She and unable to provide any meaningful history, which was obtained by reviewing the records and speaking with ED staff. Family reported that she was doing okay and was at her baseline status of health last night when she went to bed, she woke up this morning and she was not making sense with bizarre behavior later she was found covered with dark stool not responding for which EMS was notified and brought her to the hospital. Upon arrival she looked drowsy there is no answer and equal strength moaning incomprehensible speech. On my evaluation patient was sleeping is able to verbal stimulation make brief eye contact moving all her extremities trying to get comfortable in bed but does not answer any questions does not follow any commands. Computed tomography scan of the head showed no acute pathology. White count elevated at 16, lactic acid slight the elevated ammonia 88 Patient was recently hospitalized 3 months ago for similar problem her discharge diagnoses was alcohol intoxication with ongoing alcohol abuse alcoholic hepatitis(and liver disease. Review of Systems ROS unobtainable: due to mental status Past Medical History Past Medical History: Eye Disorder, GERD/Reflux, GI Bleed, Liver Disease, Musculoskeletal Disorder, Neurologic Disorder, Seizure Disorder Additional Past Medical History / Comment(s): SEIZURE FROM ETOH, SHINGLE 6 YERAS AGO,MURMUR,TORN CATILAGE IN KNEES PER PTS MOTHER IN LAW-PT HAD LIVER FAILURE IN PAST, HEP C- NEVER TX (PAST HEROIN USE),AND BULEMIA.ANXIETY/ DEPRESSION, PAST SUICIDE ATTEMPS. "IN OCTOBER DRANK RUBBING ALCOHOL". FAMILT STATED PT TAKES SUBOXONE TO HELP HER NOT DRINK AND FOR PAIN IN LEGS/KNEES. Hep C Positive History of Any Multi-Drug Resistant Organisms: MRSA Date of last positivie culture/infection: 04/20/16 MDRO Source:: SPUTUM Past Surgical History: Hernia Repair, Uterine Ablation Additional Past Surgical History / Comment(s): NOVOSURE ENDOMETRIAL ABLATION. PT HAD "THROAT BANDING DONE" Past Anesthesia/Blood Transfusion Reactions: No Reported Reaction Additional Past Anesthesia/Blood Transfusion Reaction / Comment(s): Pt received previous blood transfusion at [facility] per past medical record. Past Psychological History: Anxiety, Bipolar, Depression, Panic Disorder Smoking Status: Vaper Past Alcohol Use History: Abuse, Heavy Past Drug Use History: IV Drug Use - Past Family History Father Family Medical History: No Reported History Mother Family Medical History: Cancer Additional Family Medical History / Comment(s): COLON AND LUNG CANCER- AT AGE 50 Medications and Allergies Home Medications Medication Instructions Recorded Confirmed Type levETIRAcetam [Keppra] 500 mg PO BID 06/18/17 04/21/22 History hydrOXYzine pamoate [hydrOXYzine 50 mg PO Q6H 09/11/20 04/21/22 History PAMOATE] Spironolactone 25 mg PO DAILY 04/21/22 04/21/22 History Acetaminophen Tab [Tylenol] 650 mg PO Q6HR PRN tab 04/27/22 Rx Folic Acid 1 mg PO DAILY@1200 #30 tab 04/27/22 Rx Lactulose [Cephulac] 20 gm PO DAILY 30 Days #30 each 04/27/22 Rx Magnesium Oxide [Mag-Ox] 400 mg PO BID 30 Days #60 tab 04/27/22 Rx Multivitamins, Thera [Multivitamin 1 each PO DAILY@1200 #30 tab 04/27/22 Rx (formulary)] Thiamine [Vitamin B-1] 100 mg PO DAILY@1200 #30 tab 04/27/22 Rx chlordiazePOXIDE HCl [Librium] 25 mg PO TID #12 cap 04/27/22 Rx cloNIDine HCL [Catapres] 0.1 mg PO BID 30 Days #60 tab 04/27/22 Rx Allergies Allergy/AdvReac Type Severity Reaction Status Date / Time Penicillins Allergy Severe Rash/Hives Verified 04/21/22 12:53 Physical Exam Vitals: Vital Signs Temp Pulse Resp BP Pulse Ox 07/27/22 23:06 98.4 F 94 10 L 117/74 95 07/27/22 19:32 102 H 10 L 130/90 94 L 07/27/22 19:27 96 18 153/100 94 L 07/27/22 17:32 100 16 149/128 99 Intake and Output 07/27/22 07/27/22 07/28/22 14:59 22:59 06:59 Other: Weight 74.843 kg Constitutional: No acute distress, confused, doesn't following any commands, moaning incomprehensible speech Eyes: Anicteric sclerae, moist conjunctiva, Pupils equal round reactive to light ENMT: NC/AT Oropharynx clear, no erythema, or exudates Neck: Supple, no masses, or JVD No carotid bruits No thyromegaly Lungs: Clear to auscultation Clear to percussion Normal respiratory effort, no accessory muscle use Cardiovascular: Heart regular in rate and rhythm, systolic murmurs, no gallops, or rubs No peripheral edema Abdominal: Soft Nontender, no guarding, rebound or rigidity Abdomen moving with respiration Normoactive bowel sounds No hepatomegaly, No splenomegaly No palpable mass No abdominal wall hernia noted Skin: Normal temperature, tone, texture, turgor No induration No subcutaneous nodules No rash, lesions No ulcers Extremities: No digital cyanosis No clubbing Pedal pulses intact and symmetrical Radial pulses intact and symmetrical No calf tenderness Psychiatric: Sleeping easily arousable with verbal stimulation does not follow commands makes brief eye contact restless in bed moving all extremities Neuro unable to assess, patient is restless moving all extremities trace to get comfortable in bed but does not follow any commands Lymphatics: no palpable cervical or supraclavicular lymph nodes Results CBC & Chem 7: 07/27/22 18:06 07/27/22 18:06 Labs: Abnormal Lab Results - Last 24 Hours (Table) 07/27/22 07/27/22 07/27/22 Range/Units 18:06 18:06 18:06 WBC 16.4 H (3.8-10.6) k/uL Plt Count 67 L (150-450) k/uL Neutrophils # 13.9 H (1.3-7.7) k/uL Potassium 5.4 H (3.5-5.1) mmol/L BUN 44 H (7-17) mg/dL Creatinine 1.43 H (0.52-1.04) mg/dL Glucose 129 H (74-99) mg/dL POC Glucose (mg/dL) (70-110) mg/dL Plasma Lactic Acid Mariusz 2.7 H* (0.7-2.0) mmol/L Magnesium 2.5 H (1.6-2.3) mg/dL Total Bilirubin 1.7 H (0.2-1.3) mg/dL AST 47 H (14-36) U/L Alkaline Phosphatase 207 H (38-126) U/L Ammonia 88 H (<30) umol/L Urine Protein (Negative) Urine Blood (Negative) Urine RBC (0-5) /hpf Urine Mucus (None) /hpf U Benzodiazepines Scrn (NotDetected) 07/27/22 07/27/22 07/27/22 Range/Units 20:42 23:06 23:06 WBC (3.8-10.6) k/uL Plt Count (150-450) k/uL Neutrophils # (1.3-7.7) k/uL Potassium (3.5-5.1) mmol/L BUN (7-17) mg/dL Creatinine (0.52-1.04) mg/dL Glucose (74-99) mg/dL POC Glucose (mg/dL) 111 H (70-110) mg/dL Plasma Lactic Acid Mariusz (0.7-2.0) mmol/L Magnesium (1.6-2.3) mg/dL Total Bilirubin (0.2-1.3) mg/dL AST (14-36) U/L Alkaline Phosphatase (38-126) U/L Ammonia (<30) umol/L Urine Protein 2+ H (Negative) Urine Blood Large H (Negative) Urine RBC 15 H (0-5) /hpf Urine Mucus Rare H (None) /hpf U Benzodiazepines Scrn Detected H (NotDetected) Assessment and Plan Assessment: Acute metabolic encephalopathy, rule out toxic encephalopathy versus post ictal status history of seizures alcohol abuse , monitor for alcohol withdrawal syndrome plan check EEG neuro checks ammonia follow up lactulose alcohol withdrawal precautions CT brain no acute pathology seizure precautions continue antiseizure meds benzo per CIWA thiamine possible GI bleed Hgb stable , continue to monitor report of maroon colored stool at home PPI daily GI consultation IV fluid hydration with normal saline full code fall precautions DVT PPX mechanical
[2022-07-28] MEDS: SODIUM CHLORIDE 0.9% 1,000 ML IV SCH ×4 (01:24→23:30)
[2022-07-28] MEDS: MAGNESIUM OXIDE 400 MG TAB PO SCH ×2 (07:46→22:13)
[2022-07-28] MEDS: PANTOPRAZOLE 40 MG/10 ML VIAL IV SCH (08:21)
[2022-07-28] MEDS ORDERED: LACTULOSE 200 GM/300 ML (FROM 1/2 GAL JUG) RECTAL ONE ×2 (08:45→20:53)
[2022-07-28] MEDS ORDERED: levETIRAcetam 500 MG TAB PO SCH (09:00)
[2022-07-28] MEDS ORDERED: LEVOFLOXACIN 500MG-D5W PMX 500 MG in DEXTROSE/WATER 1 100ML.BAG IVPB SCH (09:00)
[2022-07-28] MEDS ORDERED: cloNIDine HCL 0.1 MG TAB PO SCH (09:00)
[2022-07-28 09:07] LABS: African American GFR (CKD) 60.6 (60.0-200.0); Albumin 3.4 g/dL (3.8-4.9); Albumin/Globulin Ratio 0.94 (1.60-3.17); BUN/Creat Ratio 26.92 Ratio (12.00-20.00); Blood Urea Nitrogen 32.3 mg/dL (9.0-27.0); Globulin 3.6 g/dL (1.6-3.3); Non-African American GFR(CKD) 52.3 (60.0-200.0); Total Bilirubin 1.1 mg/dL (0.30-1.20)
[2022-07-28 09:33] LABS: Basophils # (A) 0.02 X 10*3/uL (0.00-0.10); Basophils % (A) 0.2 %; Eosinophils # (A) 0 X 10*3/uL (0.04-0.35); Eosinophils % (A) 0 %; HCT 42.3 % (37.2-46.3); HGB 13.9 g/dL (12.0-15.0); Immature Grans, Automated 0.4 %; Immature Platelet Fraction 9.2 % (1.1-6.1); Lymphocytes # (A) 1.93 X 10*3/uL (0.90-5.00); Lymphocytes % (A) 17.3 %; MCH 29.4 pg (27.0-32.0); MCHC 32.9 g/dL (32.0-37.0); MCV 89.6 fL (80.0-97.0); Mean Platelet Volume 10.4 fL (9.5-12.2); Monocytes # (A) 1.37 X 10*3/uL (0.20-1.00); Monocytes % (A) 12.3 %; NRBC Per 100 WBC 0 /100 WBCS (0.0-0.0); Neutrophils # (A) 7.78 X 10*3/uL (1.80-7.70); Neutrophils % (A) 69.8 %; Platelet Count 86 X 10*3/uL (140-440); RBC 4.72 X 10*6/uL (4.10-5.20); RDW 15.1 % (11.5-14.5); WBC 11.14 X 10*3/uL (4.50-10.00)
[2022-07-28] MEDS: CLINDAMYCIN 300 MG in DEXTROSE 5% IN WATER 50 ML IVPB SCH ×6 (09:44→23:29)
--- NOTE | 2022-07-28 11:53 | P.CONS ---
History of Present Illness - Reason for Consult Consult date: 07/28/22 Alcoholic hepatic encephalopathy Requesting physician: Mark Turpin - Chief Complaint Altered mental status changes - History of Present Illness This HPI is based on hospital reports as patient is currently unarousable. This is a 51-year-old female who was brought in by ambulance. Apparently the patient's family called an ambulance as the patient had gone to bed Sunday night and seemed to be in her usual state and woke up yesterday morning not making any sense. Apparently when the patient arrived she was not responding or answering any questions. Today she remains in the emergency room awaiting a bed on the floor. Again she is barely arousable, she is unable to answer any questions or follow any commands. Apparently looking back at her history she has had admissions in the past for alcohol abuse, has a long standing history of alcohol abuse and possible underlying liver disease. She had a CT of the brain showing normal unenhanced head CT no change. Apparently lactulose was ordered but not given due to patient's mental status. Labs WBC 11 hemoglobin 13.9 hematocrit 42 platelet count 86,000 sodium 140 potassium 5.0 BUN 32 creatinine 1.2 glucose 127 total bilirubin 1.1 AST 33 ALT 21 alkaline phosphatase 167 patient's ammonia level on admission was 88 urine drug screen positive for benzodiazepines Review of Systems ROS unobtainable: due to mental status Past Medical History Past Medical History: Eye Disorder, GERD/Reflux, GI Bleed, Liver Disease, Musculoskeletal Disorder, Neurologic Disorder, Seizure Disorder Additional Past Medical History / Comment(s): SEIZURE FROM ETOH, SHINGLE 6 YERAS AGO,MURMUR,TORN CATILAGE IN KNEES PER PTS MOTHER IN LAW-PT HAD LIVER FAILURE IN PAST, HEP C- NEVER TX (PAST HEROIN USE),AND BULEMIA.ANXIETY/ DEPRESSION, PAST SUICIDE ATTEMPS. "IN OCTOBER DRANK RUBBING ALCOHOL". FAMILT STATED PT TAKES SUBOXONE TO HELP HER NOT DRINK AND FOR PAIN IN LEGS/KNEES. Hep C Positive History of Any Multi-Drug Resistant Organisms: MRSA Year Discovered:: 04/20/16 MDRO Source:: SPUTUM Past Surgical History: Hernia Repair, Uterine Ablation Additional Past Surgical History / Comment(s): NOVOSURE ENDOMETRIAL ABLATION. PT HAD "THROAT BANDING DONE" Past Anesthesia/Blood Transfusion Reactions: No Reported Reaction Additional Past Anesthesia/Blood Transfusion Reaction / Comm: Pt received previous blood transfusion at [facility] per past medical record. Past Psychological History: Anxiety, Bipolar, Depression, Panic Disorder Smoking Status: Vaper Past Alcohol Use History: Abuse, Heavy Past Drug Use History: IV Drug Use - Past Family History Father Family Medical History: No Reported History Mother Family Medical History: Cancer Additional Family Medical History / Comment(s): COLON AND LUNG CANCER- AT AGE 50 Medications and Allergies Home Medications Medication Instructions Recorded Confirmed Type levETIRAcetam [Keppra] 500 mg PO BID 06/18/17 07/28/22 History Spironolactone 25 mg PO BID 04/21/22 07/28/22 History Bumetanide [BUMEX] 0.5 mg PO DAILY 07/28/22 07/28/22 History Buprenorphine/Naloxone 8Mg/2Mg 0.5 film SL DAILY@1500 07/28/22 07/28/22 History [Suboxone 8-2Mg Film] Buprenorphine/Naloxone 8Mg/2Mg 1 film SL BID 07/28/22 07/28/22 History [Suboxone 8-2Mg Film] Gabapentin [Neurontin] 800 mg PO TID 07/28/22 07/28/22 History Midodrine [ProAmatine] 5 mg PO TID 07/28/22 07/28/22 History Mirtazapine [Remeron] 45 mg PO HS 07/28/22 07/28/22 History Propranolol LA [Inderal LA] 60 mg PO DAILY 07/28/22 07/28/22 History Rifaximin [Xifaxan] 550 mg PO BID 07/28/22 07/28/22 History busPIRone HCL 15 mg PO BID 07/28/22 07/28/22 History chlorproMAZINE [Thorazine] 25 mg PO HS 07/28/22 07/28/22 History tiZANidine HCL 8 mg PO TID 07/28/22 07/28/22 History Allergies Allergy/AdvReac Type Severity Reaction Status Date / Time Penicillins Allergy Severe Rash/Hives Verified 04/21/22 12:53 Physical Exam Vitals: Vital Signs Temp Pulse Resp BP Pulse Ox 07/28/22 07:21 96 13 160/90 95 07/28/22 06:12 98.3 F 102 H 18 144/48 96 07/27/22 23:06 98.4 F 94 10 L 117/74 95 07/27/22 19:32 102 H 10 L 130/90 94 L 07/27/22 19:27 96 18 153/100 94 L 07/27/22 17:32 100 16 149/128 99 Intake and Output 07/27/22 07/28/22 07/28/22 22:59 06:59 14:59 Other: Weight 74.843 kg General appearance: The patient is obtunded. HET: Head is normocephalic and atraumatic. Patient will not open her eyes. Neck: Supple. Heart: S1 S2. Regular rate and rhythm. Lungs: Clear to auscultation. Abdomen: Soft, nontender, nondistended with bowel sounds. No guarding or rigidity. Skin: No rashes. No jaundice. Extremities: Normal skin color and turgor. No pedal edema. Neurological: Tended, barely arousable. Unable to follow any commands Or answer questions. Results CBC & Chem 7: 07/28/22 06:11 07/28/22 06:11 Labs: Abnormal Lab Results - Last 24 Hours (Table) 07/27/22 07/27/22 07/27/22 Range/Units 18:06 18:06 18:06 WBC 16.4 H (3.8-10.6) k/uL Plt Count 67 L (150-450) k/uL Neutrophils # 13.9 H (1.3-7.7) k/uL Potassium 5.4 H (3.5-5.1) mmol/L BUN 44 H (7-17) mg/dL Creatinine 1.43 H (0.52-1.04) mg/dL Glucose 129 H (74-99) mg/dL POC Glucose (mg/dL) (70-110) mg/dL Plasma Lactic Acid Mariusz 2.7 H* (0.7-2.0) mmol/L Magnesium 2.5 H (1.6-2.3) mg/dL Total Bilirubin 1.7 H (0.2-1.3) mg/dL AST 47 H (14-36) U/L Alkaline Phosphatase 207 H (38-126) U/L Ammonia 88 H (<30) umol/L Urine Protein (Negative) Urine Blood (Negative) Urine RBC (0-5) /hpf Urine Mucus (None) /hpf U Benzodiazepines Scrn (NotDetected) 07/27/22 07/27/22 07/27/22 Range/Units 20:42 23:06 23:06 WBC (3.8-10.6) k/uL Plt Count (150-450) k/uL Neutrophils # (1.3-7.7) k/uL Potassium (3.5-5.1) mmol/L BUN (7-17) mg/dL Creatinine (0.52-1.04) mg/dL Glucose (74-99) mg/dL POC Glucose (mg/dL) 111 H (70-110) mg/dL Plasma Lactic Acid Mariusz (0.7-2.0) mmol/L Magnesium (1.6-2.3) mg/dL Total Bilirubin (0.2-1.3) mg/dL AST (14-36) U/L Alkaline Phosphatase (38-126) U/L Ammonia (<30) umol/L Urine Protein 2+ H (Negative) Urine Blood Large H (Negative) Urine RBC 15 H (0-5) /hpf Urine Mucus Rare H (None) /hpf U Benzodiazepines Scrn Detected H (NotDetected) Assessment and Plan (1) Hepatic encephalopathy Narrative/Plan: 51-year-old female who apparently was brought in by EMS after being called from her family for altered mental status changes apparently patient has a long history of alcohol abuse and intoxication and has been admitted several times in the past. Apparently patient had altered mental status changes yesterday and patient's family was concerned and called EMS. On admission patient was more or less nonresponsive, did not answer any questions or follow any commands. She continues that way today. She was known to have ammonia level [id number] on admission. Likely we are dealing with hepatic encephalopathy related to alcohol abuse. Again at this time patient is not following any commands, recommend rectal dose of lactulose followed by NG tube placement and lactulose given down the NG tube. Will also start Xifaxan. Current Visit: Yes Status: Acute Code(s): K76.82 - HEPATIC ENCEPHALOPATHY SNOMED Code(s): 77430675 (2) Thrombocytopenia Current Visit: Yes Status: Acute Code(s): D69.6 - THROMBOCYTOPENIA, UNSPECIFIED SNOMED Code(s): 442755437 (3) Altered mental status Current Visit: Yes Status: Acute Code(s): R41.82 - ALTERED MENTAL STATUS, UNSPECIFIED SNOMED Code(s): 799101423 (4) Alcohol abuse Current Visit: No Status: Chronic Code(s): F10.10 - ALCOHOL ABUSE, UNCOMPLICATED SNOMED Code(s): 91146649 Plan: 1. Continue symptomatic supportive care 2. Xifaxan 550 mg twice a day ordered 3. Insert NG tube for medication administration 4. Lactulose 30 g every hour 4 doses 5. Lactulose 30 g 3 times a day per NG tube, titrate to have 2-3 bowel movements daily 6. Repeat daily ammonia level 7. Recommend alcohol abstinence 8. Continue medical management. Thank you for allowing us to participate in the care of the patient, the GI service will sign off, gastroenterology will not be available at the hospital this weekend and through next week. If further evaluation by gastroenterology is required the patient will need transfer as per the primary team's discretion. Dr. Wendy Bradford I agree with the dictator's note, documented as a scribe by Lulu Tobias.
[2022-07-28] MEDS: THIAMINE 100 MG TAB PO SCH (12:38)
[2022-07-28] MEDS: FOLIC ACID 1 MG TAB PO SCH (12:39)
[2022-07-28] MEDS: RIFAXIMIN 550 MG TABLET PO SCH ×2 (12:40→22:13)
[2022-07-28] MEDS: LACTULOSE 20 GM/30 ML CUP PO SCH ×4 (12:40→17:40)
[2022-07-28] MEDS ORDERED: IPRATROPIUM-ALBUTEROL 3 ML NEB INHALATION PRN (14:44)
[2022-07-28] MEDS ORDERED: cloNIDine 0.2 MG/24HR PATCH TRANSDERM SCH (14:45)
--- NOTE | 2022-07-28 14:58 | P.PN ---
Subjective Progress Note Date: 07/28/22 Patient seen and examined at bedside. Patient is in the ER. Patient is lethargic and opens her eyes. Patient does move her limbs and moans. A full review of systems was unable to be assessed. Objective - Vital Signs Vital signs: Vital Signs Temp 98.3 F 07/28/22 06:12 Pulse 65 07/28/22 09:45 Resp 13 07/28/22 09:45 BP 147/78 07/28/22 09:45 Pulse Ox 96 07/28/22 09:45 FiO2 Intake & Output 07/27/22 07/28/22 07/28/22 18:59 06:59 18:59 Weight 74.843 kg - Exam General: [toxic], [older than stated stated age] Derm: [warm], [dry] Head: [atraumatic], [normocephalic], [symmetric] Eyes: [EOMI], [no lid lag], [anicteric sclera] Mouth: [no lip lesion], [mucus membranes dry] Cardiovascular: [Regular], [grade 2 systolic murmur], [positive posterior tibial pulse bilateral], Lungs: [CTA bilateral], [no rhonchi, no rales] , [no accessory muscle use] Abdominal: [soft], [ nontender to palpation], [no guarding], [no appreciable organomegaly] Ext: [no gross muscle atrophy], [no edema], [no contractures] Neuro: [ CN II-XI grossly intact], [no focal neuro deficits] Psych: [Lethargic opens eyes and moves all 4 limbs] - Labs CBC & Chem 7: 07/28/22 06:11 07/28/22 06:11 Labs: Abnormal Lab Results - Last 24 Hours (Table) 07/27/22 07/27/22 07/27/22 Range/Units 18:06 18:06 18:06 WBC 16.4 H (3.8-10.6) k/uL RDW (11.5-14.5) % Plt Count 67 L (150-450) k/uL Plt Count Comment Neutrophils # 13.9 H (1.3-7.7) k/uL Monocytes # (0.20-1.00) X 10*3/uL Eosinophils # (0.04-0.35) X 10*3/uL Immature Plt Fraction (1.1-6.1) % Potassium 5.4 H (3.5-5.1) mmol/L Chloride (96-109) mmol/L Carbon Dioxide (20.0-27.5) mmol/L BUN 44 H (7-17) mg/dL Creatinine 1.43 H (0.52-1.04) mg/dL Est GFR (CKD-EPI)NonAf (60.0-200.0) BUN/Creatinine Ratio (12.00-20.00) Ratio Glucose 129 H (74-99) mg/dL POC Glucose (mg/dL) (70-110) mg/dL Plasma Lactic Acid Mariusz 2.7 H* (0.7-2.0) mmol/L Magnesium 2.5 H (1.6-2.3) mg/dL Total Bilirubin 1.7 H (0.2-1.3) mg/dL AST 47 H (14-36) U/L Alkaline Phosphatase 207 H (38-126) U/L Ammonia 88 H (<30) umol/L Albumin (3.8-4.9) g/dL Globulin (1.6-3.3) g/dL Albumin/Globulin Ratio (1.60-3.17) g/dL Urine Protein (Negative) Urine Blood (Negative) Urine RBC (0-5) /hpf Urine Mucus (None) /hpf U Benzodiazepines Scrn (NotDetected) 07/27/22 07/27/22 07/27/22 Range/Units 20:42 23:06 23:06 WBC (3.8-10.6) k/uL RDW (11.5-14.5) % Plt Count (150-450) k/uL Plt Count Comment Neutrophils # (1.3-7.7) k/uL Monocytes # (0.20-1.00) X 10*3/uL Eosinophils # (0.04-0.35) X 10*3/uL Immature Plt Fraction (1.1-6.1) % Potassium (3.5-5.1) mmol/L Chloride (96-109) mmol/L Carbon Dioxide (20.0-27.5) mmol/L BUN (7-17) mg/dL Creatinine (0.52-1.04) mg/dL Est GFR (CKD-EPI)NonAf (60.0-200.0) BUN/Creatinine Ratio (12.00-20.00) Ratio Glucose (74-99) mg/dL POC Glucose (mg/dL) 111 H (70-110) mg/dL Plasma Lactic Acid Mariusz (0.7-2.0) mmol/L Magnesium (1.6-2.3) mg/dL Total Bilirubin (0.2-1.3) mg/dL AST (14-36) U/L Alkaline Phosphatase (38-126) U/L Ammonia (<30) umol/L Albumin (3.8-4.9) g/dL Globulin (1.6-3.3) g/dL Albumin/Globulin Ratio (1.60-3.17) g/dL Urine Protein 2+ H (Negative) Urine Blood Large H (Negative) Urine RBC 15 H (0-5) /hpf Urine Mucus Rare H (None) /hpf U Benzodiazepines Scrn Detected H (NotDetected) 07/28/22 07/28/22 Range/Units 06:11 06:11 WBC 11.14 H (3.8-10.6) k/uL RDW 15.1 H (11.5-14.5) % Plt Count 86 L (150-450) k/uL Plt Count Comment DECREASED A Neutrophils # 7.78 H (1.3-7.7) k/uL Monocytes # 1.37 H (0.20-1.00) X 10*3/uL Eosinophils # 0 L (0.04-0.35) X 10*3/uL Immature Plt Fraction 9.2 H (1.1-6.1) % Potassium (3.5-5.1) mmol/L Chloride 111 H (96-109) mmol/L Carbon Dioxide 19.0 L (20.0-27.5) mmol/L BUN 32.3 H (7-17) mg/dL Creatinine (0.52-1.04) mg/dL Est GFR (CKD-EPI)NonAf 52.3 L (60.0-200.0) BUN/Creatinine Ratio 26.92 H (12.00-20.00) Ratio Glucose 127 H (74-99) mg/dL POC Glucose (mg/dL) (70-110) mg/dL Plasma Lactic Acid Mariusz (0.7-2.0) mmol/L Magnesium (1.6-2.3) mg/dL Total Bilirubin (0.2-1.3) mg/dL AST (14-36) U/L Alkaline Phosphatase 167 H (38-126) U/L Ammonia (<30) umol/L Albumin 3.4 L (3.8-4.9) g/dL Globulin 3.6 H (1.6-3.3) g/dL Albumin/Globulin Ratio 0.94 L (1.60-3.17) g/dL Urine Protein (Negative) Urine Blood (Negative) Urine RBC (0-5) /hpf Urine Mucus (None) /hpf U Benzodiazepines Scrn (NotDetected) Assessment and Plan Assessment: 1. Acute metabolic encephalopathy multifactorial Likely due to hepatic encephalopathy with history of drug and alcohol abuse concern for sepsis due to aspiration pneumonia Clindamycin IV piggyback ordered Sputum cultures ordered blood cultures ordered Neuro checks Seizure precautions eeg ordered CIWA protocol Telemetry Check TSH 2. Sepsis due to pneumonia likely aspiration Bilateral pleural effusions on chest x-ray Clindamycin ordered Check sputum culture Check pro-calcitonin level BNP at 572 Echocardiogram ordered blood cultures pending 3. Elevated ammonia level is likely due to liver cirrhosis Lactulose rectal 1 Lactulose 30 g NG 3 times a day GI following 4. Systolic murmur with history of drug abuse Check echocardiogram 5. GI DVT prophylaxis 6. A.m. labs
[2022-07-28] MEDS: GABAPENTIN 400 MG CAP PO SCH ×2 (16:00→22:13)
[2022-07-28 16:06] LABS: VBG PH 7.4 (7.31-7.41)
[2022-07-28] MEDS ORDERED: LORazepam 1 MG/0.5 ML VIAL IV PRN ×3 (16:23→16:24)
[2022-07-28] MEDS ORDERED: LACTULOSE 20 GM/30 ML CUP PO ONE (20:53)
[2022-07-28] MEDS ORDERED: RIFAXIMIN 550 MG TABLET PO SCH (21:00)
--- NOTE | 2022-07-28 21:10 | XR ---
EXAMINATION TYPE: XR chest 1V portable DATE OF EXAM: 07/28/2022 COMPARISON: Yesterday HISTORY: Tube placement TECHNIQUE: Single view FINDINGS: There is nasogastric tube and the tip is at the level of the marsha. The lungs are clear of consolidation and heart size is normal. There is some coarsening of the interstitial markings. There are chest leads. IMPRESSION: There is mild pulmonary interstitial edema which is improved compared to yesterday. Nasog astric tube is malpositioned in the upper esophagus.
[2022-07-28] MEDS: busPIRone HCl 5 MG TAB PO SCH (22:12)
[2022-07-28] MEDS: chlorproMAZINE 25 MG TAB PO SCH (22:13)
[2022-07-29] MEDS: levETIRAcetam ORAL SOLN 500 MG/5 ML CUP PO SCH ×2 (02:12→07:29)
[2022-07-29] MEDS: CLINDAMYCIN 300 MG in DEXTROSE 5% IN WATER 50 ML IVPB SCH ×8 (02:50→21:10)
--- NOTE | 2022-07-29 03:45 | EEG ---
ELECTROENCEPHALOGRAM REPORT PREAMBLE: This is a 51-year-old female with history of seizure disorder, came to the hospital with altered mental status. The patient currently on Keppra 500 mg b.i.d. The patient had received Ativan 2 mg at 11:00 p.m. last night and also 7 in the morning today. EEG FINDINGS: This is a 21-channel digital EEG recorded with video component, utilizing 10/20 international system with referential and bipolar montages. Background recording starts and continues with presence of diffuse, [id number] amplitude 2 to 3 hertz delta waves, with some higher amplitude, frontally predominant, triphasic like waves seen in bihemispheric region. During the later half of the study, slightly more frequent theta slowing was seen in bihemispheric region. Different stages of sleep were not seen. No focal or generalized epileptiform activity was seen. IMPRESSION: This is an abnormal EEG due to presence of background slowing of [id number] degree, suggestive of generalized cerebral dysfunction as can be seen with toxic metabolic encephalopathy or due to diffuse structural brain abnormality. Clinical correlation is recommended. No definitive epileptiform activity was seen. Some triphasic type waves were seen in bifrontal region, which raises concern for hepatic encephalopathy. Clinical correlation recommended. MMODL / IJN: [id number] /
[2022-07-29 04:41] LABS: Basophils % (A) 0 %; Eosinophils % (A) 0 %; Hypochromasia Marked; Lymphocytes # (A) 1.3 k/uL (1.0-4.8); Lymphocytes % (A) 16 %; MCH 29.1 pg (25.0-35.0); MCHC 30.9 g/dL (31.0-37.0); MCV 94.3 fL (80.0-100.0); Mean Platelet Volume 13.1; Monocytes # (A) 0.8 k/uL (0-1.0); Monocytes % (A) 10 %; Neutrophils # (A) 5.7 k/uL (1.3-7.7); Neutrophils % (A) 70 %; RBC 4.45 m/uL (3.80-5.40); RDW 15.1 % (11.5-15.5); WBC 8.2 k/uL (3.8-10.6)
[2022-07-29] MEDS: MAGNESIUM OXIDE 400 MG TAB PO SCH ×2 (07:29→21:12)
[2022-07-29] MEDS: GABAPENTIN 400 MG CAP PO SCH ×3 (07:29→21:13)
[2022-07-29] MEDS: busPIRone HCl 5 MG TAB PO SCH ×2 (07:29→21:12)
[2022-07-29] MEDS: RIFAXIMIN 550 MG TABLET PO SCH ×2 (07:30→21:12)
[2022-07-29] MEDS: FOLIC ACID 1 MG TAB PO SCH (07:34)
[2022-07-29] MEDS: THIAMINE 100 MG TAB PO SCH (07:34)
[2022-07-29] MEDS: SODIUM CHLORIDE 0.9% 1,000 ML IV SCH ×2 (09:56→17:15)
[2022-07-29] MEDS: PANTOPRAZOLE 40 MG/10 ML VIAL IV SCH (09:56)
--- NOTE | 2022-07-29 10:25 | P.CRDCN ---
History of Present Illness Consult date: 07/29/22 Chief complaint: Cardiac arrhythmia History of present illness: The patient is a 51-year-old female patient who is known to her service from before was seen recently for mildly abnormal troponin which was felt to be not reactive to acute coronary syndrome. She does have an extensive cardiac history consistent of history of smoking and history of excessive alcohol use and history of drug abuse and also hepatitis C. She was admitted to the hospital this time was change in mental status. We consulted to see her this time because of cardiac arrhythmia mainly in the term of PVC. The patient is asymptomatic from the cardiovascular standpoint and reported no heart racing or fluttering and no palpitation no symptoms of chest pain or chest discomfort but these note that the patient overall is very poor historian. During her last hospital admission she underwent a workup including an echo which revealed normal left ventricle systolic function with mild valvular abnormalities. During this admission she seems to be hemodynamically stable. I'm going to obtain a BNP and also magnesium level. No need to repeat the echocardiogram in the light of recent echocardiogram. As an outpatient she needs to have a Holter monitor to assess the frequency of her PVC and further investigation/workup needed if the frequency is at high level. In the light of being asymptomatic from the PVC standpoint of view I would advise a conservative medical approach. We'll follow-up with the patient after the blood work was performed including a magnesium level Past Medical History Past Medical History: Eye Disorder, GERD/Reflux, GI Bleed, Liver Disease, Musculoskeletal Disorder, Neurologic Disorder, Seizure Disorder Additional Past Medical History / Comment(s): SEIZURE FROM ETOH, SHINGLE 6 YERAS AGO,MURMUR,TORN CATILAGE IN KNEES PER PTS MOTHER IN LAW-PT HAD LIVER FAILURE IN PAST, HEP C- NEVER TX (PAST HEROIN USE),AND BULEMIA.ANXIETY/ DEPRESSION, PAST SUICIDE ATTEMPS. "IN OCTOBER DRANK RUBBING ALCOHOL". FAMILT STATED PT TAKES SUBOXONE TO HELP HER NOT DRINK AND FOR PAIN IN LEGS/KNEES. Hep C Positive History of Any Multi-Drug Resistant Organisms: MRSA Date of last positivie culture/infection: 04/20/16 MDRO Source:: SPUTUM Past Surgical History: Hernia Repair, Uterine Ablation Additional Past Surgical History / Comment(s): NOVOSURE ENDOMETRIAL ABLATION. PT HAD "THROAT BANDING DONE" Past Anesthesia/Blood Transfusion Reactions: No Reported Reaction Additional Past Anesthesia/Blood Transfusion Reaction / Comment(s): Pt received previous blood transfusion at [facility] per past medical record. Past Psychological History: Anxiety, Bipolar, Depression, Panic Disorder Smoking Status: Vaper Past Alcohol Use History: Abuse, Heavy Past Drug Use History: IV Drug Use - Past Family History Father Family Medical History: No Reported History Mother Family Medical History: Cancer Additional Family Medical History / Comment(s): COLON AND LUNG CANCER- AT AGE 50 Medications and Allergies Home Medications Medication Instructions Recorded Confirmed Type levETIRAcetam [Keppra] 500 mg PO BID 06/18/17 07/28/22 History Spironolactone 25 mg PO BID 04/21/22 07/28/22 History Bumetanide [BUMEX] 0.5 mg PO DAILY 07/28/22 07/28/22 History Buprenorphine/Naloxone 8Mg/2Mg 0.5 film SL DAILY@1500 07/28/22 07/28/22 History [Suboxone 8-2Mg Film] Buprenorphine/Naloxone 8Mg/2Mg 1 film SL BID 07/28/22 07/28/22 History [Suboxone 8-2Mg Film] Gabapentin [Neurontin] 800 mg PO TID 07/28/22 07/28/22 History Midodrine [ProAmatine] 5 mg PO TID 07/28/22 07/28/22 History Mirtazapine [Remeron] 45 mg PO HS 07/28/22 07/28/22 History Propranolol LA [Inderal LA] 60 mg PO DAILY 07/28/22 07/28/22 History Rifaximin [Xifaxan] 550 mg PO BID 07/28/22 07/28/22 History busPIRone HCL 15 mg PO BID 07/28/22 07/28/22 History chlorproMAZINE [Thorazine] 25 mg PO HS 07/28/22 07/28/22 History tiZANidine HCL 8 mg PO TID 07/28/22 07/28/22 History Allergies Allergy/AdvReac Type Severity Reaction Status Date / Time Penicillins Allergy Severe Rash/Hives Verified 04/21/22 12:53 Physical Exam Vitals: Vital Signs Temp Pulse Pulse Resp BP BP Pulse Ox 07/29/22 07:41 98.2 F 95 12 150/93 96 07/29/22 02:45 98.4 F 51 L 15 155/71 99 07/29/22 01:04 14 07/28/22 20:00 10 L 07/28/22 19:51 99.4 F 98 10 L 166/109 96 07/28/22 14:51 101 H 14 134/87 98 07/28/22 12:36 104 H 12 120/86 98 Intake and Output 07/28/22 07/29/22 07/29/22 22:59 06:59 14:59 Intake Total 50 Balance 50 Intake: Intake, IV Titration 50 Amount Clindamycin 300 mg In 50 Dextrose 5% in Water 50 ml @ 50 mls/hr IVPB Q6H SHASHI Rx#:[id number] Other: # Voids 2 # Bowel Movements 3 - Constitutional General appearance: no acute distress - Respiratory Respiratory: bilateral: diminished - Cardiovascular Rhythm: regular Heart sounds: normal: S1, S2 Abnormal Heart Sounds: systolic murmur Results 07/29/22 04:23 07/28/22 06:11 CBC 07/29/22 Range/Units 04:23 WBC 8.2 (3.8-10.6) k/uL RBC 4.45 (3.80-5.40) m/uL Hgb 13.0 (11.4-16.0) gm/dL Hct 42.0 (34.0-46.0) % Plt Count (150-450) k/uL Current Medications Generic Name Dose Route Start Last Admin Trade Name Freq PRN Reason Stop Dose Admin Albuterol/Ipratropium 3 ml 07/28/22 14:44 Ipratropium-Albuterol 3 Ml Neb INHALATION RT-QID PRN Shortness Of Breath Or Wheezing Buspirone HCl 15 mg 07/28/22 21:00 07/29/22 07:29 Buspirone Hcl 5 Mg Tab PO Not Given BID SHASHI Chlorpromazine HCl 25 mg 07/28/22 21:00 07/28/22 22:13 Chlorpromazine 25 Mg Tab PO Not Given HS SHASHI Clonidine HCl 1 patch 07/28/22 14:45 07/28/22 15:32 Clonidine 0.2 Mg/24hr Patch TRANSDERM 1 patch Q7D SHASHI Administration Folic Acid 1 mg 07/28/22 12:00 07/29/22 07:34 Folic Acid 1 Mg Tab PO Not Given DAILY@1200 SHASHI Gabapentin 800 mg 07/28/22 16:00 10 07:29 Gabapentin 400 Mg Cap PO Not Given TID SHASHI Clindamycin Phosphate 300 mg/ 52 mls @ 50 mls/hr 07/28/22 09:00 07/29/22 09:56 Dextrose/Water IVPB 50 mls/hr Q6H SHASHI Administration Protocol Sodium Chloride 1,000 mls @ 100 mls/hr 07/28/22 11:15 07/29/22 09:56 Saline 0.9% IV Not Given .Q10H SHASHI Lactulose 30 gm 07/28/22 09:00 07/28/22 17:40 Lactulose 20 Gm/30 Ml Cup PO 30 gm TID SHASHI Administration Levetiracetam 500 mg 07/28/22 22:15 10 07:29 Levetiracetam Oral Soln 500 Mg/5 Ml Cup PO Not Given BID SHASHI Lorazepam 1 mg 07/28/22 16:23 Lorazepam 1 Mg/0.5 Ml Vial IV Q1HR PRN CIWA 10 to 15 Lorazepam 1 mg 07/28/22 16:24 Lorazepam 1 Mg/0.5 Ml Vial IV Q2HR PRN CIWA 8 or 9 Lorazepam 2 mg 07/28/22 16:24 Lorazepam 1 Mg/0.5 Ml Vial IV 07/29/22 22:46 Q10M PRN CIWA 16 or higher Magnesium Oxide 400 mg 07/28/22 09:00 07/29/22 07:29 Magnesium Oxide 400 Mg Tab PO Not Given BID [facility] Naloxone HCl 0.2 mg 07/27/22 22:33 Naloxone 0.4 Mg/Ml 1 Ml Vial IV Q2M PRN Opioid Reversal Ondansetron HCl 4 mg 07/27/22 22:33 Ondansetron 4 Mg/2 Ml Vial IVP Q8HR PRN Nausea And Vomiting Pantoprazole Sodium 40 mg 07/28/22 09:00 07/29/22 09:56 Pantoprazole 40 Mg/10 Ml Vial IV 40 mg DAILY SHASHI Administration Rifaximin 550 mg 07/28/22 10:00 07/29/22 07:30 Rifaximin 550 Mg Tablet PO 08/27/22 10:01 Not Given BID [facility] Protocol Thiamine HCl 100 mg 07/28/22 12:00 07/29/22 07:34 Thiamine 100 Mg Tab PO Not Given DAILY@1200 SHASHI Intake and Output 07/28/22 07/29/22 07/29/22 22:59 06:59 14:59 Intake Total 50 Balance 50 Intake: Intake, IV Titration 50 Amount Clindamycin 300 mg In 50 Dextrose 5% in Water 50 ml @ 50 mls/hr IVPB Q6H SHASHI Rx#:[id number] Other: # Voids 2 # Bowel Movements 3 07/29/22 04:23 07/28/22 06:11 Assessment and Plan Assessment: Assessment Change in mental status Cardiac arrhythmia in terms of PVC History of alcohol use Hepatitis C History of drug use Plan Obtain a BNP as well as magnesium level Recent echo showed normal left ventricle systolic function Further recommendation to follow
[2022-07-29 11:03] LABS: African American GFR (CKD) 75.5 (60.0-200.0); Albumin 3.2 g/dL (3.8-4.9); Albumin/Globulin Ratio 0.94 (1.60-3.17); Anion Gap 12.2 mmol/L (10.00-18.00); BUN/Creat Ratio 19.9 Ratio (12.00-20.00); Blood Urea Nitrogen 19.9 mg/dL (9.0-27.0); Carbon Dioxide 17.8 mmol/L (20.0-27.5); Globulin 3.4 g/dL (1.6-3.3); Magnesium 1.9 mg/dL (1.5-2.4); Non-African American GFR(CKD) 65.2 (60.0-200.0); Potassium 4.5 mmol/L (3.5-5.5); Total Bilirubin 1.1 mg/dL (0.30-1.20); Total Protein 6.6 g/dL (6.2-8.2)
[2022-07-29 11:09] LABS: African American GFR (CKD) >90 (>60 ml/min/1.73 sqM); Anion Gap 10 mmol/L; Blood Urea Nitrogen 19 mg/dL (7-17); Calcium 8.9 mg/dL (8.4-10.2); Carbon Dioxide 15 mmol/L (22-30); Chloride 118 mmol/L (98-107); Glucose 105 mg/dL (74-99); Magnesium 1.8 mg/dL (1.6-2.3); Non-African American GFR(CKD) 85 (>60 ml/min/1.73 sqM); Sodium 143 mmol/L (137-145)
--- NOTE | 2022-07-29 12:03 | P.PN ---
Subjective Progress Note Date: 07/29/22 The patient was seen at bedside, no acute events overnight. She was sitting in the bed refusing to talk, her mentation is getting better according to the staff. Objective - Vital Signs Vital signs: Vital Signs Temp 98.2 F 07/29/22 07:41 Pulse 95 07/29/22 07:41 Resp 12 07/29/22 07:41 BP 150/93 07/29/22 07:41 Pulse Ox 96 07/29/22 07:41 FiO2 Intake & Output 07/28/22 07/29/22 07/29/22 18:59 06:59 18:59 Intake Total 50 Balance 50 Intake: Intake, IV Titration 50 Amount Clindamycin 300 mg In 50 Dextrose 5% in Water 50 ml @ 50 mls/hr IVPB Q6H [facility] Rx#:[id number] Other: Voiding Method Diaper # Voids 2 # Bowel Movements 3 - Exam General: [toxic], [older than stated stated age] Derm: [warm], [dry] Head: [atraumatic], [normocephalic], [symmetric] Eyes: [EOMI], [no lid lag], [anicteric sclera] Mouth: [no lip lesion], [mucus membranes dry] Cardiovascular: [Regular], [grade 2 systolic murmur], [positive posterior tibial pulse bilateral], Lungs: [CTA bilateral], [no rhonchi, no rales] , [no accessory muscle use] Abdominal: [soft], [ nontender to palpation], [no guarding], [no appreciable organomegaly] Ext: [no gross muscle atrophy], [no edema], [no contractures] Neuro: [ CN II-XI grossly intact], [no focal neuro deficits] - Labs CBC & Chem 7: 07/29/22 04:23 07/29/22 07:07 Labs: Abnormal Lab Results - Last 24 Hours (Table) 07/28/22 07/28/22 07/29/22 Range/Units 09:18 15:53 00:05 MCHC (31.0-37.0) g/dL VBG pCO2 29 L (37-51) mmHg VBG HCO3 18 L (24-28) mmol/L Sodium (135-145) mmol/L Chloride (96-109) mmol/L Carbon Dioxide (20.0-27.5) mmol/L BUN (7-17) mg/dL Glucose (70-110) mg/dL Alkaline Phosphatase (41-126) U/L Ammonia 108 H (<30) umol/L Albumin (3.8-4.9) g/dL Globulin (1.6-3.3) g/dL Albumin/Globulin Ratio (1.60-3.17) g/dL Procalcitonin 2.60 H (0.02-0.09) ng/mL 07/29/22 07/29/22 07/29/22 Range/Units 04:23 04:23 04:23 MCHC 30.9 L (31.0-37.0) g/dL VBG pCO2 (37-51) mmHg VBG HCO3 (24-28) mmol/L Sodium 147 H (135-145) mmol/L Chloride 117 H (96-109) mmol/L Carbon Dioxide 17.8 L (20.0-27.5) mmol/L BUN (7-17) mg/dL Glucose 123 H (70-110) mg/dL Alkaline Phosphatase 152 H (41-126) U/L Ammonia 55 H (<30) umol/L Albumin 3.2 L (3.8-4.9) g/dL Globulin 3.4 H (1.6-3.3) g/dL Albumin/Globulin Ratio 0.94 L (1.60-3.17) g/dL Procalcitonin (0.02-0.09) ng/mL 07/29/22 07/29/22 Range/Units 07:07 07:07 MCHC (31.0-37.0) g/dL VBG pCO2 (37-51) mmHg VBG HCO3 (24-28) mmol/L Sodium (135-145) mmol/L Chloride 118 H (96-109) mmol/L Carbon Dioxide 15 L (20.0-27.5) mmol/L BUN 19 H (7-17) mg/dL Glucose 105 H (70-110) mg/dL Alkaline Phosphatase (41-126) U/L Ammonia 36 H (<30) umol/L Albumin (3.8-4.9) g/dL Globulin (1.6-3.3) g/dL Albumin/Globulin Ratio (1.60-3.17) g/dL Procalcitonin (0.02-0.09) ng/mL Microbiology - Last 24 Hours (Table) 07/27/22 19:28 Blood Culture - Preliminary Blood No Growth after 24 hours 07/27/22 19:28 Blood Culture - Preliminary Blood No Growth after 24 hours Assessment and Plan Assessment: 1. Acute metabolic encephalopathy multifactorial Likely due to hepatic encephalopathy with history of drug and alcohol abuse concern for sepsis due to aspiration pneumonia Clindamycin IV piggyback ordered Sputum cultures ordered blood cultures ordered Neuro checks Seizure precautions eeg ordered CIWA protocol Telemetry 2. Sepsis due to pneumonia likely aspiration Bilateral pleural effusions on chest x-ray Clindamycin ordered Check sputum culture Check pro-calcitonin level BNP at 572 Echocardiogram ordered blood cultures pending 3. Elevated ammonia level is likely due to liver cirrhosis Lactulose rectal 1 Lactulose 30 g NG 3 times a day GI following 4. Systolic murmur with history of drug abuse Check echocardiogram Cardiology consulted appreciate recommendations 5. GI DVT prophylaxis 6. A.m. labs
[2022-07-29] MEDS: LACTULOSE 20 GM/30 ML CUP PO SCH ×2 (15:08→22:13)
[2022-07-29] MEDS: levETIRAcetam IV 500 MG in SODIUM CHLORIDE 0.9% 100 ML IVPB SCH ×2 (15:08→22:12)
[2022-07-29] MEDS: chlorproMAZINE 25 MG TAB PO SCH (21:13)
[2022-07-30] MEDS: CLINDAMYCIN 300 MG in DEXTROSE 5% IN WATER 50 ML IVPB SCH ×10 (04:46→19:56)
[2022-07-30] MEDS: SODIUM CHLORIDE 0.9% 1,000 ML IV SCH ×2 (04:47→17:32)
[2022-07-30] MEDS: LACTULOSE 20 GM/30 ML CUP PO SCH ×3 (07:43→20:19)
[2022-07-30] MEDS: levETIRAcetam IV 500 MG in SODIUM CHLORIDE 0.9% 100 ML IVPB SCH ×2 (07:43→22:58)
[2022-07-30] MEDS: PANTOPRAZOLE 40 MG/10 ML VIAL IV SCH (07:44)
[2022-07-30] MEDS: busPIRone HCl 5 MG TAB PO SCH ×2 (07:44→19:56)
[2022-07-30] MEDS: RIFAXIMIN 550 MG TABLET PO SCH ×2 (07:44→19:56)
[2022-07-30] MEDS: MAGNESIUM OXIDE 400 MG TAB PO SCH ×2 (07:44→19:56)
[2022-07-30] MEDS: GABAPENTIN 400 MG CAP PO SCH ×3 (07:45→22:58)
--- NOTE | 2022-07-30 09:22 | P.PN ---
Subjective Progress Note Date: 07/30/22 Principal diagnosis: Cardiac arrhythmia The patient is a 51-year-old female patient who is known to her service from before was seen recently for mildly abnormal troponin which was felt to be not reactive to acute coronary syndrome. She does have an extensive cardiac history consistent of history of smoking and history of excessive alcohol use and history of drug abuse and also hepatitis C. She was admitted to the hospital this time was change in mental status. We consulted to see her this time because of cardiac arrhythmia mainly in the term of PVC. The patient is asy mptomatic from the cardiovascular standpoint and reported no heart racing or fluttering and no palpitation no symptoms of chest pain or chest discomfort but these note that the patient overall is very poor historian. During her last hospital admission she underwent a workup including an echo which revealed normal left ventricle systolic function with mild valvular abnormalities. During this admission she seems to be hemodynamically stable. I'm going to obtain a BNP and also magnesium level. No need to repeat the echocardiogram in the light of recent echocardiogram. As an outpatient she needs to have a Holter monitor to assess the frequency of her PVC and further investigation/workup nee ded if the frequency is at high level. In the light of being asymptomatic from the PVC standpoint of view I would advise a conservative medical approach. We'll follow-up with the patient after the blood work was performed including a magnesium level July The patient was seen this morning. She is looking much better clinically and she is not as lethargic as agitated as yesterday. She is able to communicate with me and she is alert and oriented 3. She is asymptomatic from a cardiac vascular standpoint of view. The pressure continues to be slightly elevated as well as a heart rate. I'm going to start the patient a small dose of beta ari was Toprol-XL. Otherwise from the cardiac standpoint of view, no need for any further cardiac workup and will follow-up with the patient on when necessary Objective - Vital Signs Vital signs: Vital Signs Temp 97.6 F 07/30/22 08:00 Pulse 89 07/30/22 08:00 Resp 17 07/30/22 08:00 BP 151/88 07/30/22 08:00 Pulse Ox 100 07/30/22 08:00 FiO2 Intake & Output 07/29/22 07/30/22 07/30/22 18:59 06:59 18:59 Output Total 1 Balance -1 Output: Stool 1 Other: Voiding Method Diaper Diaper Toilet # Voids 3 - Constitutional General appearance: Present: no acute distress - Respiratory Respiratory: bilateral: CTA - Cardiovascular Rhythm: regular - Labs CBC & Chem 7: 07/29/22 04:23 07/29/22 07:07 Labs: Abnormal Lab Results - Last 24 Hours (Table) 07/29/22 07/29/22 Range/Units 04:23 07:07 Sodium 147 H (135-145) mmol/L Chloride 117 H 118 H (96-109) mmol/L Carbon Dioxide 17.8 L 15 L (20.0-27.5) mmol/L BUN 19 H (7-17) mg/dL Glucose 123 H 105 H (70-110) mg/dL Alkaline Phosphatase 152 H (41-126) U/L Albumin 3.2 L (3.8-4.9) g/dL Globulin 3.4 H (1.6-3.3) g/dL Albumin/Globulin Ratio 0.94 L (1.60-3.17) g/dL Microbiology - Last 24 Hours (Table) 07/27/22 19:28 Blood Culture - Preliminary Blood No Growth after 48 hours 07/27/22 19:28 Blood Culture - Preliminary Blood No Growth after 48 hours Assessment and Plan Assessment: Assessment Change in mental status Cardiac arrhythmia in terms of PVC History of alcohol use Hepatitis C History of drug use Plan Continue the current medical regimen Start the patient on small dose of beta ari Follow-up with the patient on when necessary case
[2022-07-30 11:41] LABS: Magnesium 1.8 mg/dL (1.5-2.4); Phosphorus 4.2 mg/dL (2.4-5.1)
[2022-07-30 11:46] LABS: African American GFR (CKD) 84.4 (60.0-200.0); Anion Gap 10.8 mmol/L (10.00-18.00); BUN/Creat Ratio 17.32 Ratio (12.00-20.00); Blood Urea Nitrogen 15.8 mg/dL (9.0-27.0); Calcium 8.6 mg/dL (8.7-10.3); Carbon Dioxide 16.7 mmol/L (20.0-27.5); Non-African American GFR(CKD) 72.9 (60.0-200.0); Potassium 4.6 mmol/L (3.5-5.5)
[2022-07-30] MEDS: THIAMINE 100 MG TAB PO SCH (12:19)
[2022-07-30] MEDS: FOLIC ACID 1 MG TAB PO SCH (12:19)
[2022-07-30 12:39] LABS: Basophils % (A) 0 %; Eosinophils % (A) 0 %; HCT 34.9 % (34.0-46.0); HGB 11.5 gm/dL (11.4-16.0); Hypochromasia Marked; Lymphocytes % (A) 30 %; MCH 30.4 pg (25.0-35.0); MCHC 32.8 g/dL (31.0-37.0); MCV 92.5 fL (80.0-100.0); Mean Platelet Volume 11.9; Monocytes # (A) 0.3 k/uL (0-1.0); Monocytes % (A) 7 %; Neutrophils % (A) 58 %; Poikilocytosis Slight; RBC 3.77 m/uL (3.80-5.40); WBC 3.5 k/uL (3.8-10.6)
--- NOTE | 2022-07-30 12:41 | P.PN ---
Subjective Progress Note Date: 07/30/22 The patient was seen at bedside, no acute events overnight. She was sitting in the bed stated that she is feeling well. She was alert and oriented 3. Objective - Vital Signs Vital signs: Vital Signs Temp 97.6 F 07/30/22 08:00 Pulse 89 07/30/22 08:00 Resp 17 07/30/22 08:00 BP 151/88 07/30/22 08:00 Pulse Ox 100 07/30/22 08:00 FiO2 Intake & Output 07/29/22 07/30/22 07/30/22 18:59 06:59 18:59 Output Total 1 Balance -1 Output: Stool 1 Other: Voiding Method Diaper Diaper Toilet # Voids 3 - Exam General: [toxic], [older than stated stated age] Derm: [warm], [dry] Head: [atraumatic], [normocephalic], [symmetric] Eyes: [EOMI], [no lid lag], [anicteric sclera] Mouth: [no lip lesion], [mucus membranes dry] Cardiovascular: [Regular], [grade 2 systolic murmur], [positive posterior tibial pulse bilateral], Lungs: [CTA bilateral], [no rhonchi, no rales] , [no accessory muscle use] Abdominal: [soft], [ nontender to palpation], [no guarding], [no appreciable organomegaly] Ext: [no gross muscle atrophy], [no edema], [no contractures] Neuro: [ CN II-XI grossly intact], [no focal neuro deficits] - Labs CBC & Chem 7: 07/29/22 04:23 07/30/22 05:56 Labs: Abnormal Lab Results - Last 24 Hours (Table) 07/30/22 Range/Units 05:56 Chloride 112 H (96-109) mmol/L Carbon Dioxide 16.7 L (20.0-27.5) mmol/L Calcium 8.6 L (8.7-10.3) mg/dL Microbiology - Last 24 Hours (Table) 07/27/22 19:28 Blood Culture - Preliminary Blood No Growth after 48 hours 07/27/22 19:28 Blood Culture - Preliminary Blood No Growth after 48 hours Assessment and Plan Assessment: 1. Acute metabolic encephalopathy multifactorial, improving Likely due to hepatic encephalopathy with history of drug and alcohol abuse concern for sepsis due to aspiration pneumonia Clindamycin IV piggyback ordered Sputum cultures ordered blood cultures ordered Neuro checks Seizure precautions eeg ordered CIWA protocol Telemetry 2. Sepsis due to pneumonia likely aspiration Bilateral pleural effusions on chest x-ray Clindamycin ordered Check sputum culture Check pro-calcitonin level BNP at 572 Echocardiogram ordered blood cultures pending 3. Elevated ammonia level is likely due to liver cirrhosis Lactulose rectal 1 Lactulose 30 g NG 3 times a day GI following 4. Systolic murmur with history of drug abuse Check echocardiogram Cardiology consulted appreciate recommendations 5. GI DVT prophylaxis 6. A.m. labs
[2022-07-30 13:29] LABS: Platelet Count 78 k/uL (150-450)
[2022-07-30] MEDS: chlorproMAZINE 25 MG TAB PO SCH ×2 (20:20→22:58)
[2022-07-31] MEDS: SODIUM CHLORIDE 0.9% 1,000 ML IV SCH ×2 (00:28→10:39)
[2022-07-31] MEDS: CLINDAMYCIN 300 MG in DEXTROSE 5% IN WATER 50 ML IVPB SCH ×4 (03:36→09:06)
[2022-07-31 07:47] VITALS: BP 124/80; PULSE 88; RESP 17; TEMP 97.6
[2022-07-31] MEDS ORDERED: METOPROLOL SUCCINATE (ER) 25 MG TAB.ER.24H PO SCH (09:00)
[2022-07-31 09:03] LABS: African American GFR (CKD) 85.8 (60.0-200.0); Anion Gap 7.1 mmol/L (10.00-18.00); BUN/Creat Ratio 13.33 Ratio (12.00-20.00); Calcium 8.4 mg/dL (8.7-10.3); Carbon Dioxide 21.9 mmol/L (20.0-27.5); Magnesium 1.9 mg/dL (1.5-2.4); Phosphorus 4.4 mg/dL (2.4-5.1); Potassium 4.5 mmol/L (3.5-5.5)
[2022-07-31] MEDS: GABAPENTIN 400 MG CAP PO SCH (09:06)
[2022-07-31] MEDS: busPIRone HCl 5 MG TAB PO SCH (09:06)
[2022-07-31] MEDS: MAGNESIUM OXIDE 400 MG TAB PO SCH (09:07)
[2022-07-31] MEDS: LACTULOSE 20 GM/30 ML CUP PO SCH (09:07)
[2022-07-31] MEDS: PANTOPRAZOLE 40 MG/10 ML VIAL IV SCH (09:07)
[2022-07-31] MEDS: RIFAXIMIN 550 MG TABLET PO SCH (09:08)
[2022-07-31 09:51] LABS: Basophils # (A) 0 X 10*3/uL (0.00-0.10); Basophils % (A) 0 %; Eosinophils # (A) 0 X 10*3/uL (0.04-0.35); Eosinophils % (A) 0 %; HCT 32.5 % (37.2-46.3); HGB 10.6 g/dL (12.0-15.0); Immature Grans, Automated 0 %; Immature Platelet Fraction 10.6 % (1.1-6.1); Lymphocytes # (A) 1.11 X 10*3/uL (0.90-5.00); Lymphocytes % (A) 35.4 %; MCH 29.4 pg (27.0-32.0); MCHC 32.6 g/dL (32.0-37.0); MCV 90.3 fL (80.0-97.0); Mean Platelet Volume 10.7 fL (9.5-12.2); Monocytes # (A) 0.45 X 10*3/uL (0.20-1.00); Monocytes % (A) 14.3 %; NRBC Per 100 WBC 0 /100 WBCS (0.0-0.0); Neutrophils # (A) 1.58 X 10*3/uL (1.80-7.70); Neutrophils % (A) 50.3 %; Platelet Count 45 X 10*3/uL (140-440); RBC Morphology NORMAL; RDW 14.5 % (11.5-14.5); WBC 3.14 X 10*3/uL (4.50-10.00)
[2022-07-31] MEDS: levETIRAcetam IV 500 MG in SODIUM CHLORIDE 0.9% 100 ML IVPB SCH (10:06)
--- NOTE | 2022-07-31 21:54 | P.DS ---
Providers Date of admission: 07/27/22 22:35 Expected date of discharge: 07/31/22 Attending physician: Guy Bailey MD Consults: 07/27/22 22:33 Consult Physician Routine Consulting Provider: Lisbeth Bradford Consult Reason/Comments: Hepatic encephalopathy, possible GI bleeding Do you want consulting provider notified?: Yes 07/29/22 05:51 Consult Physician Urgent Consulting Provider: Blake Garcia Consult Reason/Comments: arrythmia Do you want consulting provider notified?: Yes Primary care physician: Stated None Hospital Course: Discharge Diagnosis: Hepatic encephalopathy Alcoholic cirrhosis Aspiration pneumonia, possible sepsis Acute kidney injury Thrombocytopenia, chronic Hospital Course: Patient is a 51-year-old female with a history of cirrhosis secondary to alcohol use, hepatic encephalopathy, and GERD who initially presented to the ER secondary to unresponsiveness. On arrival to the ER she was sleeping but able to arouse to verbal stimuli. CT of the head showed no acute process. Laboratory analysis was remarkable for white blood cell count of 16, platelets 67, potassium 5.4, BUN 44, creatinine 1.43, lactic acid 2.7, bilirubin 1.7, AST 47, alkaline phosphatase 207, and ammonia 88. She was admitted for further monitoring. She was started on lactulose and CIWA protocol. She was seen by GI who agreed with continuing Xifaxan, they ordered insertion of an NG tube on lactulose to be administered. Her ammonia level increased to 108 at max. She was also found to have an elevated pro-calcitonin. There was concerns for aspiration pneumonia and she was started on clindamycin. She received 4 days of treatment with clindamycin, she was satting 96% on room, her leukocytosis r esolved, and antibiotics were discontinued. She had one out of 3 blood cultures become positive for Gram-positive cocci, this is felt likely to be contaminant as it turned positive at greater than 72 hours and the other 2 blood cultures were negative. She did have some PVCs during her hospital stay and was evaluated by cardiology who recommended keeping patient on beta ari and outpatient follow-up. It was noted that her propranolol had been discontinued on admission and this was resumed on discharge and metoprolol was discontinued. She was awake ambulating and doing well. She stated that she had stopped taking her lactulose due to diarrhea. We discussed the importance of adherence to lactulose regimen as well as establishment with GI. We discussed that her optimal bowel movements are 3 daily. We discussed the risks of her ammonia level increasing. She was determined stable for discharge. Follow-up: She was given a prescription for lactulose. She was resumed on her home diuretics as per LEOPOLDO had resolved and she was eating and drinking well. We'll follow up with Dr. Bradford in 08/09 and her primary care physician on 08/07. Dr. Garcia week Patient seen and examined at bedside. She denies any cough, shortness of breath, wheezing, nausea, vomiting. She is having bowel movements daily. She feels great and ready to go home. Vital signs reviewed and stable. General: nontoxic, no distress, appears at stated age Derm: warm, dry Head: atraumatic, normocephalic, symmetric Eyes: EOMI, no lid lag, anicteric sclera Mouth: no lip lesion, mucus membranes moist Cardiovascular: S1S2 reg, no murmur, positive posterior tibial pulse bilateral, Lungs: CTA bilateral, no rhonchi, no rales , no accessory muscle use Abdominal: soft, nontender to palpation, no guarding, no appreciable organomegaly Ext: no gross muscle atrophy, no edema, no contractures Neuro: CN II-XI grossly intact, no focal neuro deficits Psych: Alert, oriented, appropriate affect A total of 35 minutes of time were spent preparing this complex discharge summary. Patient was discharged on 07/31/22. Patient Condition at Discharge: Stable Plan - Discharge Summary New Discharge Prescriptions: New Lactulose [Cephulac] 30 gm PO TID #4000 ml Continue levETIRAcetam [Keppra] 500 mg PO BID Buprenorphine/Naloxone 8Mg/2Mg [Suboxone 8-2Mg Film] 1 film SL BID Propranolol LA [Inderal LA] 60 mg PO DAILY chlorproMAZINE [Thorazine] 25 mg PO HS Gabapentin [Neurontin] 800 mg PO TID Spironolactone 25 mg PO BID Bumetanide [BUMEX] 0.5 mg PO DAILY Buprenorphine/Naloxone 8Mg/2Mg [Suboxone 8-2Mg Film] 0.5 film SL DAILY@1500 Rifaximin [Xifaxan] 550 mg PO BID Mirtazapine [Remeron] 45 mg PO HS busPIRone HCL 15 mg PO BID Discontinued tiZANidine HCL 8 mg PO TID Midodrine [ProAmatine] 5 mg PO TID Discharge Medication List levETIRAcetam [Keppra] 500 mg PO BID 06/18/17 [History] Spironolactone 25 mg PO BID 04/21/22 [History] Bumetanide [BUMEX] 0.5 mg PO DAILY 07/28/22 [History] Buprenorphine/Naloxone 8Mg/2Mg [Suboxone 8-2Mg Film] 0.5 film SL DAILY@1500 07/28/22 [History] Buprenorphine/Naloxone 8Mg/2Mg [Suboxone 8-2Mg Film] 1 film SL BID 07/28/22 [History] Gabapentin [Neurontin] 800 mg PO TID 07/28/22 [History] Mirtazapine [Remeron] 45 mg PO HS 07/28/22 [History] Propranolol LA [Inderal LA] 60 mg PO DAILY 07/28/22 [History] Rifaximin [Xifaxan] 550 mg PO BID 07/28/22 [History] busPIRone HCL 15 mg PO BID 07/28/22 [History] chlorproMAZINE [Thorazine] 25 mg PO HS 07/28/22 [History] Lactulose [Cephulac] 30 gm PO TID #4000 ml 07/31/22 [Rx] Follow up Appointment(s)/Referral(s): Lisbeth Bradford MD [STAFF PHYSICIAN] - 08/09/22 1:00 pm Galdino Obando MD [REFERRING] - [facility] As Needed (Call to see if they have a toilet riser. ) Blake Garcia MD [STAFF PHYSICIAN] - 1 Week (office will call with appointment time) Patient Instructions/Handouts: Hepatic Encephalopathy (DC) Activity/Diet/Wound Care/Special Instructions: Activity: as tolerated Diet: low sodium Special Instructions: Cardiac event monitor with cardiology Take Lactulose as prescribed if you have more than 3 bowel movements daily please call your doctor for further instructions I have taken off your midodrine (used to increased blood pressure) as your blood pressure has been elevated to 140s here. Discharge/Stand Alone Forms: AA Meetings [facility], [facility], Outpatient Counseling, In Substance Abuse Facilities Discharge Disposition: HOME SELF-CARE
--- NOTE | 2022-08-03 12:06 | CDI ---
Documentation Clarification Form Date: 08/03/2022 11:33:00 AM From: Anne-Marie Grider Admit Date: 07/27/2022 10:35:00 PM Patient Name: Esha Garcia Visit Number: [id number] Discharge Date: 07/31/2022 11:11:00 AM ATTENTION: The Clinical Documentation Specialists (CDI) and [facility] Coding Staff appreciate your assistance in clarifying documentation. Please respond to the clarification below the line at the bottom and electronically sign. The CDI & [facility] Coding staff will review the response and follow-up if needed. Please note: Queries are made part of the Legal Health Record. If you have any questions, please contact the author of this message via ITS. Dr. Madina Conklin Sepsis due to aspiration pneumonia is documented in DCS and in PN's 07/28-07/30. Patient admitted on 07/27. i For each diagnosis, documentation must be clear to determine if the condition was present at the time of the patients inpatient admission or developed during the hospital stay. Additional clarification regarding if sepsis due to aspiration pneumonia is requested. History/Risk Factors: Alcohol abuse with hepatic encephalopathy, cirrhosis of liver. Clinical Indicators: Patient with elevated WBC's 16.4. lactic acidosis 2.7. CXR on admit showing possible pneumonia and/or heart failure. Heart rate on admission 100 bpm, respirations 16 down to 10 on 07/27. Treatment: Rocehphin ordered 07/27 Levaquin ordered 07/28 Definition of Present on Admission (POA): A diagnosis present at the time the order for admission to inpatient status was written. Please clarify if the Sepsis due to aspiration pneumonia was POA [X ] Y = Yes, the condition was present at the time of the order for inpatient admission. [ ] N = No, the condition was not present at the time of the order for inpatient admission. [ ] W = Clinically undetermined if the condition was present at the time of the order for inpatient admission. MTDD
== END 2022-07-31 11:11 | disposition home or self-care (01) | DRG 871 ==
LOC: EC 17:31 → 4SSUR 22:35
PROVIDERS: ADMIT Internal Medicine; ATTEND Internal Medicine
PROC: 0DH673Z Insertion of Infusion Device into Stomach, Via Natural or Artificial Opening (ICD-10-PCS; principal; 2022-07-28)
DX: A41.9 Sepsis, unspecified organism (principal); G93.41 Metabolic encephalopathy; J69.0 Pneumonitis due to inhalation of food and vomit; E87.20 Acidosis, unspecified; J90 Pleural effusion, not elsewhere classified; N17.9 Acute kidney failure, unspecified; F50.2 Bulimia nervosa; K76.82 Hepatic encephalopathy; R65.20 Severe sepsis without septic shock; B19.20 Unspecified viral hepatitis C without hepatic coma; D69.6 Thrombocytopenia, unspecified; H57.9 Unspecified disorder of eye and adnexa; F11.11 Opioid abuse, in remission; F31.9 Bipolar disorder, unspecified; K21.9 Gastro-esophageal reflux disease without esophagitis; F41.0 Panic disorder [episodic paroxysmal anxiety]; K70.30 Alcoholic cirrhosis of liver without ascites; R01.1 Cardiac murmur, unspecified; G40.909 Epilepsy, unspecified, not intractable, without status epilepticus; I49.3 Ventricular premature depolarization; R15.9 Full incontinence of feces; F17.290 Nicotine dependence, other tobacco product, uncomplicated; T47.3X6A Underdosing of saline and osmotic laxatives, initial encounter; Z91.128 Patient's intentional underdosing of medication regimen for other reason; Z79.899 Other long term (current) drug therapy; Z88.0 Allergy status to penicillin; Z68.26 Body mass index [BMI] 26.0-26.9, adult; Z86.19 Personal history of other infectious and parasitic diseases; Z86.14 Personal history of Methicillin resistant Staphylococcus aureus infection
CPT/HCPCS: 36415; 70450; 71045; 80048; 80053; 80306; 80320; 81001; 82140; 82803; 83605; 83735; 83880; 84100; 84145; 84443; 84484; 85025; 85610; 85730; 87040; 93005; 95816; 96361; 96365; 96367; 96372; 96375; 96376; 99291

== ENCOUNTER 2023-03-08 21:02 | Inpatient (IN) | payer MEDICARE, OTHER ==
[2023-03-08] MEDS ORDERED: SODIUM CHLORIDE 0.9% 1,000 ML IV STA (21:17)
[2023-03-08] MEDS ORDERED: MIDAZOLAM 1 MG/ML 5 ML VIAL IV STA ×2 (21:46→22:41)
[2023-03-08 21:47] LABS: Glucose,Whole Blood 103 mg/dL (70-110)
[2023-03-08 21:53] LABS: Basophils % (A) 0 %; Eosinophils % (A) 0 %; HCT 41.9 % (34.0-46.0); HGB 14.4 gm/dL (11.4-16.0); Lymphocytes # (A) 0.7 k/uL (1.0-4.8); Lymphocytes % (A) 9 %; MCH 30.5 pg (25.0-35.0); MCHC 34.5 g/dL (31.0-37.0); MCV 88.6 fL (80.0-100.0); Mean Platelet Volume 8.5; Monocytes # (A) 0.3 k/uL (0-1.0); Monocytes % (A) 4 %; Neutrophils % (A) 85 %; Platelet Count 139 k/uL (150-450); Poikilocytosis Slight; RBC 4.73 m/uL (3.80-5.40); WBC 7.1 k/uL (3.8-10.6)
[2023-03-08 22:00] LABS: ALT 51 U/L (4-34); AST 103 U/L (14-36); Acetaminophen <10.0 ug/mL; African American GFR (CKD) 59 (>60 ml/min/1.73 sqM); Albumin 4.1 g/dL (3.5-5.0); Alcohol <10 mg/dL; Alkaline Phosphatase 176 U/L (38-126); Anion Gap 11 mmol/L; Blood Urea Nitrogen 25 mg/dL (7-17); Calcium 9.7 mg/dL (8.4-10.2); Carbon Dioxide 30 mmol/L (22-30); Chloride 98 mmol/L (98-107); Glucose 100 mg/dL (74-99); Non-African American GFR(CKD) 51 (>60 ml/min/1.73 sqM); Potassium 3.5 mmol/L (3.5-5.1); Salicylate <1.0 mg/dL; Sodium 139 mmol/L (137-145); Total Protein 7.6 g/dL (6.3-8.2)
--- NOTE | 2023-03-08 22:01 | XR ---
EXAMINATION TYPE: XR chest 1V portable DATE OF EXAM: 03/08/2023 9:49 PM COMPARISON: Chest radiographs from 07/28/2022 TECHNIQUE: XR chest 1V portable Frontal view of the chest. CLINICAL INDICATION:Female, 52 years old with history of altered mental status; FINDINGS: Lungs/Pleura: Prominent interstitial lung markings are seen scattered throughout the lungs. No eviden ce of focal consolidation, pneumothorax or pleural effusion. Pulmonary vascularity: Unremarkable. Heart/mediastinum: Cardiomediastinal silhouette is unremarkable. Musculoskeletal: No acute osseous pathology. IMPRESSION: No acute cardiopulmonary disease/process.
[2023-03-08 22:05] LABS: INR 1.1 (<1.2); Partial Thromboplastin Time 25.5 sec (22.0-30.0); Prothrombin Time 11.8 sec (9.0-12.0)
[2023-03-08 22:18] LABS: Lactic Acid, Venous 2.1 mmol/L (0.7-2.0)
[2023-03-08 23:15] LABS: Appearance,Urine Turbid (Clear); Bacteria,Urine Few /hpf; Bilirubin,Urine Negative (Negative); Blood,Urine Trace (Negative); Color,Urine Yellow; Glucose,Urine (UA) Negative (Negative); Ketones,Urine Negative (Negative); Leukocyte Esterase,Urine Negative (Negative); Nitrite,Urine Negative (Negative); PH, Urine 5.5 (5.0-8.0); Protein,Urine 1+ (Negative); RBC,Urine 1 /hpf (0-5); Specific Gravity,Urine 1.008 (1.001-1.035); Squamous Epithelial Cell,Urine 88 /hpf (0-4); Urobilinogen,Urine <2.0 mg/dL (<2.0); WBC,Urine 2 /hpf (0-5)
[2023-03-08 23:22] LABS: Amphetamine Screen,Urine Not Detected (NotDetected); Barbiturate Screen,Urine Not Detected (NotDetected); Benzodiazepines Screen,Urine Not Detected (NotDetected); Cocaine Screen,Urine Not Detected (NotDetected); Methadone Screen, Urine Not Detected (NotDetected); Opiate Screen,Urine Not Detected (NotDetected); Oxycodone Screen, Urine Not Detected (NotDetected); Phencyclidine Screen,Urine Not Detected (NotDetected); Tricyclic Antidepressant,Urine Not Detected (NotDetected); Urn Cannabinoid Scrn Not Detected (NotDetected)
--- NOTE | 2023-03-08 23:44 | CT ---
EXAMINATION TYPE: CT brain cspine wo con CT DLP: 1336.4 mGycm, Automated exposure control for dose reduction was used. DATE OF EXAM: 03/08/2023 11:34 PM COMPARISON: 07/27/2022 CLINICAL INDICATION:Female, 52 years old with history of ams, trauma; ams TECHNIQUE: Brain: Multiple axial CT images of the brain were obtained without IV contrast. Cspine: Axial CT images from the skull base to the inferior aspect of T2 we obtained without intraven ous contrast. Coronal and sagittal reformatted images were also reviewed. FINDINGS: Brain: Extra-axial spaces: No abnormal extra-axial fluid collections. Ventricular system: Within normal limits Cerebral parenchyma: No acute intraparenchymal hemorrhage or mass effect. The schumacher-white junction is well differentiated. Cerebellum: Unremarkable. Mass effect: No evidence of midline shift. Intracranial vasculature: unremarkable Soft tissues: Normal. Calvarium/osseous structures: No depressed skull fracture. Paranasal sinuses and mastoid air cells: Clear. Visualized orbits: Orbital contents are intact. Cervical spine: Fracture: None. Osseous structures: Multilevel degenerative disc disease changes with endplate spurring and disc oste ophyte complex's. Vertebral alignment: Grade 1 anterolisthesis of C3 on C4. Spinal canal/Neural Foramina: Disc osteophyte complexes at C6-C7 with at least mild spinal canal sten osis. Facet joint uncovertebral joint arthropathy scattered throughout the cervical spine with varyin g degrees of neural foraminal stenosis. Neck soft tissues: Prevertebral soft tissues are within normal limits. Other: The airway is patent. Paraseptal emphysema changes. IMPRESSION: 1. No acute intracranial process. 2. No evidence of cervical spine fracture. 3. Mild multilevel degenerative disc disease.
[2023-03-09] MEDS ORDERED: NALOXONE 0.4 MG/ML 1 ML VIAL IV PRN (00:05)
--- NOTE | 2023-03-09 00:05 | ED ---
Altered Mental Status HPI - General Chief Complaint: Altered Mental Status Stated Complaint: Altered Mental Time Seen by Provider: 03/08/23 21:08 Source: EMS Mode of arrival: EMS Limitations: altered mental status - History of Present Illness Initial Comments: 52-year-old female with past medical history of polysubstance abuse including cocaine, heroin and alcohol who presents to the emergency department after her mother called EMS. Paramedics state that the patient was last seen normal 2-3 days ago. She does have external signs of trauma. They cannot provide much other information. Unknown when the patient last drank alcohol. Patient cannot provide any history - Related Data Home Medications Medication Instructions Recorded Confirmed levETIRAcetam [Keppra] 500 mg PO BID 06/18/17 07/28/22 Spironolactone 25 mg PO BID 04/21/22 07/28/22 Bumetanide [BUMEX] 0.5 mg PO DAILY 07/28/22 07/28/22 Buprenorphine/Naloxone 8Mg/2Mg 0.5 film SL DAILY@1500 07/28/22 07/28/22 [Suboxone 8-2Mg Film] Buprenorphine/Naloxone 8Mg/2Mg 1 film SL BID 07/28/22 07/28/22 [Suboxone 8-2Mg Film] Gabapentin [Neurontin] 800 mg PO TID 07/28/22 07/28/22 Mirtazapine [Remeron] 45 mg PO HS 07/28/22 07/28/22 Propranolol LA [Inderal LA] 60 mg PO DAILY 07/28/22 07/28/22 Rifaximin [Xifaxan] 550 mg PO BID 07/28/22 07/28/22 busPIRone HCL 15 mg PO BID 07/28/22 07/28/22 chlorproMAZINE [Thorazine] 25 mg PO HS 07/28/22 07/28/22 Previous Rx's Medication Instructions Recorded Lactulose [Cephulac] 30 gm PO TID #4000 ml 07/31/22 Allergies Allergy/AdvReac Type Severity Reaction Status Date / Time Penicillins Allergy Severe Rash/Hives Verified 04/21/22 12:53 Review of Systems ROS Statement: Those systems with pertinent positive or pertinent negative responses have been documented in the HPI. ROS Other: All systems not noted in ROS Statement are negative. 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 "IN OCTOBER DRANK RUBBING ALCOHOL". FAMILT STATED PT TAKES SUBOXONE TO HELP HER NOT DRINK AND FOR PAIN IN LEGS/KNEES. Hep C Positive History of Any Multi-Drug Resistant Organisms: MRSA Date of last positivie culture/infection: 04/20/16 MDRO Source:: SPUTUM Past Surgical History: Hernia Repair, Uterine Ablation Additional Past Surgical History / Comment(s): NOVOSURE ENDOMETRIAL ABLATION. PT HAD "THROAT BANDING DONE" Past Anesthesia/Blood Transfusion Reactions: No Reported Reaction Additional Past Anesthesia/Blood Transfusion Reaction / Comment(s): Pt received previous blood transfusion at [facility] per past medical record. Past Psychological History: Anxiety, Bipolar, Depression, Panic Disorder Smoking Status: Unknown if ever smoked Past Alcohol Use History: Abuse, Daily Past Drug Use History: Cocaine, Heroin, IV Drug Use - Past Family History Father Family Medical History: No Reported History Mother Family Medical History: Cancer Additional Family Medical History / Comment(s): COLON AND LUNG CANCER- AT AGE 50 General Exam Limitations: altered mental status General appearance: anxious Head exam: Present: other (Bruising above right eye) Eye exam: Present: normal appearance, PERRL, EOMI. Absent: scleral icterus, conjunctival injection, periorbital swelling ENT exam: Present: mucous membranes dry, other (Oropharynx is covered in blood) Neck exam: Present: normal inspection. Absent: tenderness, meningismus, lymphadenopathy Respiratory exam: Present: normal lung sounds bilaterally. Absent: respiratory distress, wheezes, rales, rhonchi, stridor Cardiovascular Exam: Present: normal rhythm, tachycardia, systolic murmur GI/Abdominal exam: Present: soft, normal bowel sounds. Absent: distended, tenderness, guarding, rebound, rigid Extremities exam: Present: other (Significant bruising to the anterior bilateral knees) Neurological exam: Present: altered Psychiatric exam: Present: agitated Skin exam: Present: abrasion (Bilateral knees) Course Vital Signs 03/08/23 03/08/23 03/09/23 21:03 22:03 00:00 Temperature 97.1 F L Pulse Rate 121 H 97 114 H Respiratory 18 14 20 Rate Blood Pressure 179/102 111/64 148/98 O2 Sat by Pulse 97 97 95 Oximetry 03/09/23 03/09/23 01:00 05:00 Temperature Pulse Rate 108 H 117 H Respiratory 16 16 Rate Blood Pressure 152/91 145/95 O2 Sat by Pulse 97 95 Oximetry Medical Decision Making - Medical Decision Making Was pt. sent in by a medical professional or institution (, PA, SUPERVISOR INSECTIC[employer], urgent care, hospital, or usp...) When possible be specific @ -No Did you speak to anyone other than the patient for history (EMS, parent, family, police, friend...)? What history was obtained from this source @ -EMS states that the patient has not been normal for 2-3 days Did you review nursing and triage notes (agree or disagree)? Why? @ -I reviewed and agree with nursing and triage notes Were old charts reviewed (outside hosp., previous admission, EMS record, old EKG, old radiological studies, urgent care reports/EKG's, usp records)? Report findings @ -Old charts were reviewed as the patient cannot provide any history. It appears that the patient has a history of liver disease with hepatic encephalopathy area patient also abuses IV drugs Differential Diagnosis (chest pain, altered mental status, abdominal pain women, abdominal pain men, vaginal bleeding, weakness, fever, dyspnea, syncope, headac he, dizziness, GI bleed, back pain, seizure, CVA, palpatations, mental health, musculoskeletal)? @ -Differential Altered Mental Status: Hypoglycemia, DKA, hypercapnia, ETOH, overdose, CO poisoning, trauma, myxedema coma, HTN encephalopathy, infection, encephalitis, psychosis, intercranial hemorrhage, hepatic encephalopathy, meningitis, CVA, this is not meant to be an all-inclusive list EKG interpreted by me (3pts min.). @ -Yes EKG was interpreted by myself and demonstrates a sinus tachycardia X-rays interpreted by me (1pt min.). @ -Yes x-ray was interpreted by myself which demonstrates no acute process of the chest CT interpreted by me (1pt min.). @ -Yes CT of the brain was interpreted by myself as negative for acute intracranial process U/S interpreted by me (1pt. min.). @ -None done What testing was considered but not performed or refused? (CT, X-rays, U/S, labs)? Why? @ -I will order an urgent echo as it is not available at this time What meds were considered but not given or refused? Why? @ -None Did you discuss the management of the patient with other professionals (professionals i.e. , PA, [employer], lab, RT, psych nurse, vp digital marketing social media and crm, record center coordinator, teacher, principal gifts officer, porter sample case)? Give summary @ -I discussed the patient's care with Jen from [facility] who agreed to admit the patient Was smoking cessation discussed for >3mins.? @ -No Was critical care preformed (if so, how long)? @ -Yes, 35 minutes Were there social determinants of health that impacted care today? How? (Homelessness, low income, unemployed, alcoholism, drug addiction, transportation, low edu. Level, literacy, decrease access to med. care, usp, rehab)? @ -Patient has a history of alcoholism and drug abuse. She has encephalopathy at this time and does not understand her medical care Was there de-escalation of care discussed even if they declined (Discuss DNR or withdrawal of care, Hospice)? DNR status @ -No What co-morbidities impacted this encounter? (DM, HTN, Smoking, COPD, CAD, Cancer, CVA, ARF, Chemo, Hep., AIDS, mental health diagnosis, sleep apnea, morbid obesity)? @ -IV drug use Was patient admitted / discharged? Hospital course, mention meds given and route, prescriptions, significant lab abnormalities, going to OR and other pertinent info. @ -Upon arrival patient is placed into trauma 2. History and physical exam is performed. Patient is uncooperative and yelling at staff. She was given 5 mg's of Versed. IV is established and laboratory studies are conducted. Laboratory studies are reviewed by myself and demonstrates a troponin of 1.19. Patient has not heparinized that she does have signs of oral bleeding however this is dried. She also has a history of significant alcohol abuse. Recommended admission and spoke with Jen from [facility]. Patient needs urgent echo due to loud murmur. Patient remained in stable condition awaiting a bed on the floor Undiagnosed new problem with uncertain prognosis? @ -Yes Drug Therapy requiring intensive monitoring for toxicity (Heparin, Nitro, Insulin, Cardizem)? @ -No - Due to concern for GI bleeding, will hold heparin until GI evaluats betito jacobo Were any procedures done? @ -No Diagnosis/symptom? @ -Acute encephalopathy, NSTEMI, new cardiac murmur, possible GI bleed, hx of alcohol and iv drug abuse, possible alcohol withdrawal Acute, or Chronic, or Acute on Chronic? @ -Acute Uncomplicated (without systemic symptoms) or Complicated (systemic symptoms)? @ -Complicated Side effects of treatment? @ -No Exacerbation, Progression, or Severe Exacerbation? @ -No Poses a threat to life or bodily function? How? (Chest pain, USA, CT, pneumonia, PE, COPD, DKA, ARF, appy, cholecystitis, CVA, Diverticulitis, Homicidal, Suicidal, threat to staff... and all critical care pts) @ -Yes - Lab Data Result diagrams: 03/08/23 21:26 03/08/23 21:26 Lab Results 03/08/23 03/08/23 03/08/23 Range/Units 21:26 21:26 21:26 WBC 7.1 (3.8-10.6) k/uL RBC 4.73 (3.80-5.40) m/uL Hgb 14.4 (11.4-16.0) gm/dL Hct 41.9 (34.0-46.0) % MCV 88.6 (80.0-100.0) fL MCH 30.5 (25.0-35.0) pg MCHC 34.5 (31.0-37.0) g/dL RDW 14.0 (11.5-15.5) % Plt Count 139 L (150-450) k/uL MPV 8.5 Neutrophils % 85 % Lymphocytes % 9 % Monocytes % 4 % Eosinophils % 0 % Basophils % 0 % Neutrophils # 6.0 (1.3-7.7) k/uL Lymphocytes # 0.7 L (1.0-4.8) k/uL Monocytes # 0.3 (0-1.0) k/uL Eosinophils # 0.0 (0-0.7) k/uL Basophils # 0.0 (0-0.2) k/uL Poikilocytosis Slight PT 11.8 (9.0-12.0) sec INR 1.1 (<1.2) APTT 25.5 (22.0-30.0) sec Sodium 139 (137-145) mmol/L Potassium 3.5 (3.5-5.1) mmol/L Chloride 98 (98-107) mmol/L Carbon Dioxide 30 (22-30) mmol/L Anion Gap 11 mmol/L BUN 25 H (7-17) mg/dL Creatinine 1.23 H (0.52-1.04) mg/dL Est GFR (CKD-EPI)AfAm 59 (>60 ml/min/1.73 sqM) Est GFR (CKD-EPI)NonAf 51 (>60 ml/min/1.73 sqM) Glucose 100 H (74-99) mg/dL POC Glucose (mg/dL) (70-110) mg/dL POC Glu Metal Numerical Tool Programmer ID Lactic Ac Sepsis Rflx Plasma Lactic Acid Mariusz (0.7-2.0) mmol/L Calcium 9.7 (8.4-10.2) mg/dL Total Bilirubin 3.0 H (0.2-1.3) mg/dL AST 103 H (14-36) U/L ALT 51 H (4-34) U/L Alkaline Phosphatase 176 H (38-126) U/L Ammonia (<30) umol/L Troponin I (0.000-0.034) ng/mL Total Protein 7.6 (6.3-8.2) g/dL Albumin 4.1 (3.5-5.0) g/dL Urine Color Urine Appearance (Clear) Urine pH (5.0-8.0) Ur Specific [place] (1.001-1.035) Urine Protein (Negative) Urine Glucose (UA) (Negative) Urine Ketones (Negative) Urine Blood (Negative) Urine Nitrite (Negative) Urine Bilirubin (Negative) Urine Urobilinogen (<2.0) mg/dL Ur Leukocyte Esterase (Negative) Urine RBC (0-5) /hpf Urine WBC (0-5) /hpf Ur Squamous Epith Cells (0-4) /hpf Urine Bacteria (None) /hpf Salicylates <1.0 mg/dL Urine Opiates Screen (NotDetected) Ur Oxycodone Screen (NotDetected) Urine Methadone Screen (NotDetected) Ur Propoxyphene Screen (NotDetected) Acetaminophen <10.0 ug/mL Ur Barbiturates Screen (NotDetected) U Tricyclic Antidepress (NotDetected) Ur Phencyclidine Scrn (NotDetected) Ur Amphetamines Screen (NotDetected) U Methamphetamines Scrn (NotDetected) U Benzodiazepines Scrn (NotDetected) Urine Cocaine Screen (NotDetected) U Marijuana (THC) Screen (NotDetected) Serum Alcohol <10 mg/dL Blood Type Blood Type Confirm Blood Type Recheck Bld Type Recheck Status Antibody Screen Spec Expiration Date 03/08/23 03/08/23 03/08/23 Range/Units 21:26 21:26 21:44 WBC (3.8-10.6) k/uL RBC (3.80-5.40) m/uL Hgb (11.4-16.0) gm/dL Hct (34.0-46.0) % MCV (80.0-100.0) fL MCH (25.0-35.0) pg MCHC (31.0-37.0) g/dL RDW (11.5-15.5) % Plt Count (150-450) k/uL MPV Neutrophils % % Lymphocytes % % Monocytes % % Eosinophils % % Basophils % % Neutrophils # (1.3-7.7) k/uL Lymphocytes # (1.0-4.8) k/uL Monocytes # (0-1.0) k/uL Eosinophils # (0-0.7) k/uL Basophils # (0-0.2) k/uL Poikilocytosis PT (9.0-12.0) sec INR (<1.2) APTT (22.0-30.0) sec Sodium (137-145) mmol/L Potassium (3.5-5.1) mmol/L Chloride (98-107) mmol/L Carbon Dioxide (22-30) mmol/L Anion Gap mmol/L BUN (7-17) mg/dL Creatinine (0.52-1.04) mg/dL Est GFR (CKD-EPI)AfAm (>60 ml/min/1.73 sqM) Est GFR (CKD-EPI)NonAf (>60 ml/min/1.73 sqM) Glucose (74-99) mg/dL POC Glucose (mg/dL) 103 (70-110) mg/dL POC Glu Metal Numerical Tool Programmer ID [place] Mckeon Lactic Ac Sepsis Rflx Plasma Lactic Acid Mariusz 2.1 H* (0.7-2.0) mmol/L Calcium (8.4-10.2) mg/dL Total Bilirubin (0.2-1.3) mg/dL AST (14-36) U/L ALT (4-34) U/L Alkaline Phosphatase (38-126) U/L Ammonia 9 (<30) umol/L Troponin I 1.190 H* (0.000-0.034) ng/mL Total Protein (6.3-8.2) g/dL Albumin (3.5-5.0) g/dL Urine Color Urine Appearance (Clear) Urine pH (5.0-8.0) Ur Specific [place] (1.001-1.035) Urine Protein (Negative) Urine Glucose (UA) (Negative) Urine Ketones (Negative) Urine Blood (Negative) Urine Nitrite (Negative) Urine Bilirubin (Negative) Urine Urobilinogen (<2.0) mg/dL Ur Leukocyte Esterase (Negative) Urine RBC (0-5) /hpf Urine WBC (0-5) /hpf Ur Squamous Epith Cells (0-4) /hpf Urine Bacteria (None) /hpf Salicylates mg/dL Urine Opiates Screen (NotDetected) Ur Oxycodone Screen (NotDetected) Urine Methadone Screen (NotDetected) Ur Propoxyphene Screen (NotDetected) Acetaminophen ug/mL Ur Barbiturates Screen (NotDetected) U Tricyclic Antidepress (NotDetected) Ur Phencyclidine Scrn (NotDetected) Ur Amphetamines Screen (NotDetected) U Methamphetamines Scrn (NotDetected) U Benzodiazepines Scrn (NotDetected) Urine Cocaine Screen (NotDetected) U Marijuana (THC) Screen (NotDetected) Serum Alcohol mg/dL Blood Type Blood Type Confirm Blood Type Recheck Bld Type Recheck Status Antibody Screen Spec Expiration Date 03/08/23 03/08/23 03/08/23 Range/Units 21:46 21:58 22:18 WBC (3.8-10.6) k/uL RBC (3.80-5.40) m/uL Hgb (11.4-16.0) gm/dL Hct (34.0-46.0) % MCV (80.0-100.0) fL MCH (25.0-35.0) pg MCHC (31.0-37.0) g/dL RDW (11.5-15.5) % Plt Count (150-450) k/uL MPV Neutrophils % % Lymphocytes % % Monocytes % % Eosinophils % % Basophils % % Neutrophils # (1.3-7.7) k/uL Lymphocytes # (1.0-4.8) k/uL Monocytes # (0-1.0) k/uL Eosinophils # (0-0.7) k/uL Basophils # (0-0.2) k/uL Poikilocytosis PT (9.0-12.0) sec INR (<1.2) APTT (22.0-30.0) sec Sodium (137-145) mmol/L Potassium (3.5-5.1) mmol/L Chloride (98-107) mmol/L Carbon Dioxide (22-30) mmol/L Anion Gap mmol/L BUN (7-17) mg/dL Creatinine (0.52-1.04) mg/dL Est GFR (CKD-EPI)AfAm (>60 ml/min/1.73 sqM) Est GFR (CKD-EPI)NonAf (>60 ml/min/1.73 sqM) Glucose (74-99) mg/dL POC Glucose (mg/dL) (70-110) mg/dL POC Glu Metal Numerical Tool Programmer ID Lactic Ac Sepsis Rflx Y Plasma Lactic Acid Mariusz (0.7-2.0) mmol/L Calcium (8.4-10.2) mg/dL Total Bilirubin (0.2-1.3) mg/dL AST (14-36) U/L ALT (4-34) U/L Alkaline Phosphatase (38-126) U/L Ammonia (<30) umol/L Troponin I (0.000-0.034) ng/mL Total Protein (6.3-8.2) g/dL Albumin (3.5-5.0) g/dL Urine Color Urine Appearance (Clear) Urine pH (5.0-8.0) Ur Specific [place] (1.001-1.035) Urine Protein (Negative) Urine Glucose (UA) (Negative) Urine Ketones (Negative) Urine Blood (Negative) Urine Nitrite (Negative) Urine Bilirubin (Negative) Urine Urobilinogen (<2.0) mg/dL Ur Leukocyte Esterase (Negative) Urine RBC (0-5) /hpf Urine WBC (0-5) /hpf Ur Squamous Epith Cells (0-4) /hpf Urine Bacteria (None) /hpf Salicylates mg/dL Urine Opiates Screen (NotDetected) Ur Oxycodone Screen (NotDetected) Urine Methadone Screen (NotDetected) Ur Propoxyphene Screen (NotDetected) Acetaminophen ug/mL Ur Barbiturates Screen (NotDetected) U Tricyclic Antidepress (NotDetected) Ur Phencyclidine Scrn (NotDetected) Ur Amphetamines Screen (NotDetected) U Methamphetamines Scrn (NotDetected) U Benzodiazepines Scrn (NotDetected) Urine Cocaine Screen (NotDetected) U Marijuana (THC) Screen (NotDetected) Serum Alcohol mg/dL Blood Type B Positive Blood Type Confirm B Positive Blood Type Recheck No Previous Record Bld Type Recheck Status CABO Indicated Antibody Screen NEGATIVE Spec Expiration Date 03/11/2023 - 235703/08/23 Range/Units 22:33 WBC (3.8-10.6) k/uL RBC (3.80-5.40) m/uL Hgb (11.4-16.0) gm/dL Hct (34.0-46.0) % MCV (80.0-100.0) fL MCH (25.0-35.0) pg MCHC (31.0-37.0) g/dL RDW (11.5-15.5) % Plt Count (150-450) k/uL MPV Neutrophils % % Lymphocytes % % Monocytes % % Eosinophils % % Basophils % % Neutrophils # (1.3-7.7) k/uL Lymphocytes # (1.0-4.8) k/uL Monocytes # (0-1.0) k/uL Eosinophils # (0-0.7) k/uL Basophils # (0-0.2) k/uL Poikilocytosis PT (9.0-12.0) sec INR (<1.2) APTT (22.0-30.0) sec Sodium (137-145) mmol/L Potassium (3.5-5.1) mmol/L Chloride (98-107) mmol/L Carbon Dioxide (22-30) mmol/L Anion Gap mmol/L BUN (7-17) mg/dL Creatinine (0.52-1.04) mg/dL Est GFR (CKD-EPI)AfAm (>60 ml/min/1.73 sqM) Est GFR (CKD-EPI)NonAf (>60 ml/min/1.73 sqM) Glucose (74-99) mg/dL POC Glucose (mg/dL) (70-110) mg/dL POC Glu Metal Numerical Tool Programmer ID Lactic Ac Sepsis Rflx Plasma Lactic Acid Mariusz (0.7-2.0) mmol/L Calcium (8.4-10.2) mg/dL Total Bilirubin (0.2-1.3) mg/dL AST (14-36) U/L ALT (4-34) U/L Alkaline Phosphatase (38-126) U/L Ammonia (<30) umol/L Troponin I (0.000-0.034) ng/mL Total Protein (6.3-8.2) g/dL Albumin (3.5-5.0) g/dL Urine Color Yellow Urine Appearance Turbid H (Clear) Urine pH 5.5 (5.0-8.0) Ur Specific [place] 1.008 (1.001-1.035) Urine Protein 1+ H (Negative) Urine Glucose (UA) Negative (Negative) Urine Ketones Negative (Negative) Urine Blood Trace H (Negative) Urine Nitrite Negative (Negative) Urine Bilirubin Negative (Negative) Urine Urobilinogen <2.0 (<2.0) mg/dL Ur Leukocyte Esterase Negative (Negative) Urine RBC 1 (0-5) /hpf Urine WBC 2 (0-5) /hpf Ur Squamous Epith Cells 88 H (0-4) /hpf Urine Bacteria Few H (None) /hpf Salicylates mg/dL Urine Opiates Screen Not Detected (NotDetected) Ur Oxycodone Screen Not Detected (NotDetected) Urine Methadone Screen Not Detected (NotDetected) Ur Propoxyphene Screen Not Detected (NotDetected) Acetaminophen ug/mL Ur Barbiturates Screen Not Detected (NotDetected) U Tricyclic Antidepress Not Detected (NotDetected) Ur Phencyclidine Scrn Not Detected (NotDetected) Ur Amphetamines Screen Not Detected (NotDetected) U Methamphetamines Scrn Not Detected (NotDetected) U Benzodiazepines Scrn Not Detected (NotDetected) Urine Cocaine Screen Not Detected (NotDetected) U Marijuana (THC) Screen Not Detected (NotDetected) Serum Alcohol mg/dL Blood Type Blood Type Confirm Blood Type Recheck Bld Type Recheck Status Antibody Screen Spec Expiration Date - EKG Data EKG Comments: EKG TURP by myself and demonstrates sinus tachycardia with a rate of 114. VT interval 136. QRS 90. QTC of 370. No acute ST segment elevations or depressions Disposition Clinical Impression: Elevated troponin, Acute encephalopathy, Alcoholism, GI bleed Disposition: ADMITTED IP TO THIS [facility] Condition: Serious Is patient prescribed a controlled substance at d/c from ED?: No Time of Disposition: 00:05 Decision to Admit Reason: Admit from EC Decision Date: 03/09/23 Decision Time: 00:05
[2023-03-09] MEDS ORDERED: THIAMINE 100 MG/ML 2 ML VIAL IM STA (00:13)
[2023-03-09] MEDS ORDERED: LORazepam 2 MG/ML INJ IV PRN ×3 (00:13)
[2023-03-09] MEDS: SODIUM CHLORIDE 0.9% 1,000 ML IV SCH ×3 (00:14→21:54)
[2023-03-09 07:24] LABS: Basophils % (A) 0 %; Eosinophils % (A) 0 %; HCT 43.3 % (34.0-46.0); HGB 14.8 gm/dL (11.4-16.0); Lymphocytes # (A) 1.2 k/uL (1.0-4.8); Lymphocytes % (A) 15 %; MCH 30.6 pg (25.0-35.0); MCHC 34.3 g/dL (31.0-37.0); MCV 89.1 fL (80.0-100.0); Mean Platelet Volume 8.1; Monocytes # (A) 0.7 k/uL (0-1.0); Monocytes % (A) 8 %; Neutrophils # (A) 6.1 k/uL (1.3-7.7); Neutrophils % (A) 75 %; Platelet Count 162 k/uL (150-450); Poikilocytosis Slight; RBC 4.85 m/uL (3.80-5.40); RDW 14.1 % (11.5-15.5); WBC 8.2 k/uL (3.8-10.6)
[2023-03-09 07:41] LABS: Calcium 9.4 mg/dL (8.4-10.2); Potassium 3.3 mmol/L (3.5-5.1)
--- NOTE | 2023-03-09 08:23 | P.CONS ---
History of Present Illness - Reason for Consult Consult date: 03/09/23 Possible GI bleed, history of alcohol abuse Requesting physician: Vivi Hickman - Chief Complaint Altered mental status changes - History of Present Illness This a 52-year-old female who presented to the emergency department by EMS after family had called that patient had altered mental status changes over the last couple days. HPI is obtained from chart and ER physician. Apparently patient has a history of polysubstance abuse including alcohol, heroin, and cocaine. According to her chart she does have a history of liver failure and is hepatitis C positive. Unclear at this time if she's had treatment. Patient is alert and oriented only to self. On presentation apparently patient had dried blood around her nose and mouth, multiple bruises all over her body. Gastroenterology was consulted for possible GI bleed with relation to old dry blood on face. Patient is unable to answer any questions appropriately. Dr. Ayoub states she presented as though she may have had head trauma. Patient lives with her mother who is elderly and not really able to give much of a history. Toxicology was negative for drugs, alcohol, salicylates, and acetaminophen. She underwent a CT of the head and neck and spine that showed no acute intracranial process. No evidence of cervical spine fracture. Mild multilevel degenerative disc disease. Admitting labs WBC 7.1 hemoglobin 14.4 hematocrit 41.9 platelet count 139,008 are 1.1 sodium 139 potassium 3.5 BUN 25 creatinine 1.2 glucose 100 lactic acid 2.1 total bilirubin 3.0 AST 103 ALT 51 alkaline phosphatase 176 of pneumonia 9 troponin 1.19 Review of Systems ROS unobtainable: due to mental status Past Medical History Past Medical History: Eye Disorder, GERD/Reflux, GI Bleed, Liver Disease, Musculoskeletal Disorder, Neurologic Disorder, Seizure Disorder Additional Past Medical History / Comment(s): SEIZURE FROM ETOH, SHINGLE 6 YERAS AGO,MURMUR,TORN CATILAGE IN KNEES PER PTS MOTHER IN LAW-PT HAD LIVER FAILURE IN PAST, HEP C- NEVER TX (PAST HEROIN USE),AND BULEMIA.ANXIETY/ DEPRESSION, PAST SUICIDE ATTEMPS. "IN OCTOBER DRANK RUBBING ALCOHOL". FAMILT STATED PT TAKES SUBOXONE TO HELP HER NOT DRINK AND FOR PAIN IN LEGS/KNEES. Hep C Positive History of Any Multi-Drug Resistant Organisms: MRSA Year Discovered:: 06/30/16 MDRO Source:: SPUTUM Past Surgical History: Hernia Repair, Uterine Ablation Additional Past Surgical History / Comment(s): NOVOSURE ENDOMETRIAL ABLATION. PT HAD "THROAT BANDING DONE" Past Anesthesia/Blood Transfusion Reactions: No Reported Reaction Additional Past Anesthesia/Blood Transfusion Reaction / Comm: Pt received previous blood transfusion at [facility] per past medical record. Past Psychological History: Anxiety, Bipolar, Depression, Panic Disorder Smoking Status: Unknown if ever smoked Past Alcohol Use History: Abuse, Daily Past Drug Use History: Cocaine, Heroin, IV Drug Use - Past Family History Father Family Medical History: No Reported History Mother Family Medical History: Cancer Additional Family Medical History / Comment(s): COLON AND LUNG CANCER- AT AGE 50 Medications and Allergies Home Medications Medication Instructions Recorded Confirmed Type levETIRAcetam [Keppra] 500 mg PO BID 06/18/17 07/28/22 History Spironolactone 25 mg PO BID 04/21/22 07/28/22 History Bumetanide [BUMEX] 0.5 mg PO DAILY 07/28/22 07/28/22 History Buprenorphine/Naloxone 8Mg/2Mg 0.5 film SL DAILY@1500 07/28/22 07/28/22 History [Suboxone 8-2Mg Film] Buprenorphine/Naloxone 8Mg/2Mg 1 film SL BID 07/28/22 07/28/22 History [Suboxone 8-2Mg Film] Gabapentin [Neurontin] 800 mg PO TID 07/28/22 07/28/22 History Mirtazapine [Remeron] 45 mg PO HS 07/28/22 07/28/22 History Propranolol LA [Inderal LA] 60 mg PO DAILY 07/28/22 07/28/22 History Rifaximin [Xifaxan] 550 mg PO BID 07/28/22 07/28/22 History busPIRone HCL 15 mg PO BID 07/28/22 07/28/22 History chlorproMAZINE [Thorazine] 25 mg PO HS 07/28/22 07/28/22 History Lactulose [Cephulac] 30 gm PO TID #4000 ml 07/31/22 Rx Allergies Allergy/AdvReac Type Severity Reaction Status Date / Time Penicillins Allergy Severe Rash/Hives Verified 04/21/22 12:53 Physical Exam Vitals: Vital Signs Temp Pulse Resp BP Pulse Ox 03/09/23 05:00 117 H 16 145/95 95 03/09/23 01:00 108 H 16 152/91 97 03/09/23 00:00 114 H 20 148/98 95 03/08/23 22:03 97 14 111/64 97 03/08/23 21:03 97.1 F L 121 H 18 179/102 97 Intake and Output 03/08/23 03/08/23 03/09/23 14:59 22:59 06:59 Other: Weight 72.575 kg General appearance: The patient is awake, appears altered mental status, appears in no acute distress. HET: Head is normocephalic and atraumatic. Conjunctiva pink. Sclera anicteric. Neck: Supple without lymphadenopathy. Trachea midline. Heart: Regular. Lungs: Clear to auscultation. Abdomen: Soft, nontender, nondistended. No guarding or rigidity. Skin: No rashes. Jaundice. Multiple bruises and abrasions on upper or lower extremities. Extremities: Normal skin color and turgor. No pedal edema. Neurological: Awake, appears altered mental status, oriented to self only. Patient underwent able to answer questions appropriately. Results CBC & Chem 7: 03/09/23 07:02 03/09/23 07:02 Labs: Abnormal Lab Results - Last 24 Hours (Table) 03/08/23 03/08/23 03/08/23 Range/Units 21:26 21:26 21:26 Plt Count 139 L (150-450) k/uL Lymphocytes # 0.7 L (1.0-4.8) k/uL BUN 25 H (7-17) mg/dL Creatinine 1.23 H (0.52-1.04) mg/dL Glucose 100 H (74-99) mg/dL Plasma Lactic Acid Mariusz 2.1 H* (0.7-2.0) mmol/L Total Bilirubin 3.0 H (0.2-1.3) mg/dL AST 103 H (14-36) U/L ALT 51 H (4-34) U/L Alkaline Phosphatase 176 H (38-126) U/L Troponin I (0.000-0.034) ng/mL Urine Appearance (Clear) Urine Protein (Negative) Urine Blood (Negative) Ur Squamous Epith Cells (0-4) /hpf Urine Bacteria (None) /hpf 03/08/23 03/08/23 Range/Units 21:26 22:33 Plt Count (150-450) k/uL Lymphocytes # (1.0-4.8) k/uL BUN (7-17) mg/dL Creatinine (0.52-1.04) mg/dL Glucose (74-99) mg/dL Plasma Lactic Acid Mariusz (0.7-2.0) mmol/L Total Bilirubin (0.2-1.3) mg/dL AST (14-36) U/L ALT (4-34) U/L Alkaline Phosphatase (38-126) U/L Troponin I 1.190 H* (0.000-0.034) ng/mL Urine Appearance Turbid H (Clear) Urine Protein 1+ H (Negative) Urine Blood Trace H (Negative) Ur Squamous Epith Cells 88 H (0-4) /hpf Urine Bacteria Few H (None) /hpf Assessment and Plan (1) Altered mental status Narrative/Plan: 52-year-old female sent in by EMS for altered mental status changes with long-standing history of polysubstance abuse and alcoholism. Patient had presented with old dried blood surrounding her mouth and nose. There was concerns for possible GI bleed with history of alcohol abuse. Patient did have an episode of emesis in the emergency department with no blood noted. Hemoglobin on admission of 14.4 with a repeat hemoglobin of 14.8 today. Patient with elevated troponins, reported cardiac murmur which is believed to be new onset. Ammonia level normal, patient may be going through withdrawal symptoms. Liver enzymes are consistent with underlying liver disease with known history of alcoholism as well as hepatitis C. No plans on endoscopic evaluation as there is no evidence for acute GI bleed. Current Visit: No Status: Acute Code(s): R41.82 - ALTERED MENTAL STATUS, UNSPECIFIED SNOMED Code(s): 363955584 (2) History of hepatitis C Current Visit: Yes Status: Acute Code(s): Z86.19 - PERSONAL HISTORY OF OTHER INFECTIOUS AND PARASITIC DISEASES SNOMED Code(s): 57806705144064 (3) History of liver disease Current Visit: Yes Status: Acute Code(s): Z87.19 - PERSONAL HISTORY OF OTHER DISEASES OF THE DIGESTIVE SYSTEM SNOMED Code(s): 342390466 (4) Elevated troponin Narrative/Plan: Cardiology on consult Current Visit: Yes Status: Acute Code(s): R77.8 - OTHER SPECIFIED ABNORMALITIES OF PLASMA PROTEINS SNOMED Code(s): 109797509 (5) Alcoholism Current Visit: Yes Status: Chronic Code(s): F10.20 - ALCOHOL DEPENDENCE, UNCOMPLICATED SNOMED Code(s): 5518336 Plan: 1. Continue symptomatic and supportive care 2. Protonix 40 mg IV daily for GI prophylaxis 3. Hemoglobin is stable with no evidence of GI bleed. No plans on endoscopic evaluation. 4. Recommend outpatient follow-up for underlying liver disease, known history of hepatitis C per patient's chart, unclear if patient has been treated 5. Recommend alcohol abstinence Thank you for this consultation, we will sign off at this time. Dr. Wendy Bradford I agree with the dictator's note, documented as a scribe by Lulu Tobias.
[2023-03-09] MEDS: METOPROLOL SUCCINATE (ER) 25 MG TAB.ER.24H PO SCH (11:02)
[2023-03-09] MEDS ORDERED: PROPRANOLOL LA 60 MG CAP.SA.24H PO SCH (11:15)
[2023-03-09] MEDS ORDERED: ACETAMINOPHEN TAB 325 MG TAB PO STA (11:16)
[2023-03-09] MEDS: PANTOPRAZOLE 40 MG/10 ML VIAL IVP SCH (11:22)
[2023-03-09] MEDS: MIDODRINE 5 MG TAB PO SCH ×2 (13:19→18:03)
--- NOTE | 2023-03-09 13:57 | P.HPIM ---
History of Present Illness 52-year-old female in the EMS, patient doesn't answer any questions but does follow commands. Patient does have bloody nose on admission dried up blood in thenose. Patient's [id number] is a caregiver did talk to the [id number]. Patient had history of drug abuse or alcohol abuse in the past and patient didn't use any of these recently patient in her usual state of health will ablate with the help of a cane was discharged from subacute rehabilitation about a month ago and for last couple days patient has not been doing well became barely responsive. Although patient had multiple medication given that can cause altered mental status urine drug screen is negative for any drugs or alcohol. Unable to obtain much of the history from the patient patient apparently had history of hepatitis C, cirrhosis and hyperammonemia in the past patient was on rifaximin mean in the past presently not on any such medication on lactulose at this time. Patient's ammonia level is around 9 patient had elevated serum creatinine 1.23 GFR is extremely low. Patient was started on IV fluids subsequently admitted to medicine. had a head CT and CT of the neck which did not show any significant abnormality. REVIEW OF SYSTEMS: Unable to obtain due to her clinical condition PHYSICAL EXAMINATION: GENERAL: The patient is alert and unable to asses orientation patient doesn't answer questions but does follow commands not in any acute distress. Well developed, well nourished. HEENT: Pupils are round and equally reacting to light. EOMI. No scleral icterus. No conjunctival pallor. Normocephalic, patient does have crusted and dried up blood in the nose. No pharyngeal erythema. No thyromegaly. CARDIOVASCULAR: S1 and S2 present. No murmurs, rubs, or gallops. PULMONARY: Chest is clear to auscultation, no wheezing or crackles. ABDOMEN: Soft, nontender, nondistended, normoactive bowel sounds. No palpable organomegaly. MUSCULOSKELETAL: No joint swelling or deformity. EXTREMITIES: No cyanosis, clubbing, or pedal edema. NEUROLOGICAL: Unable to assess as patient doesn't follow commands . SKIN: No rashes. Assessment and plan -Possible toxic encephalopathy from multiple medications including depression or phone/naloxone, gabapentin, mirtazapine, Thorazine, baclofen unscheduled basis, Zanaflex, possibly buspirone. We will discontinue all his medications patient will be monitored. -Non-ST elevation [place] albeit type II discussed with cardiology patient will not be started on any heparin at this time patient doesn't have any evidence of GI bleed at this time. Troponin elevation may be secondary to intravascular volume depletion dehydration and renal failure -History of hepatitis C and history of cirrhosis although patient doesn't have any ascites at this time -Acute renal failure: Gentle hydration, secondary to intravascular volume depletion will need to monitor for fluid buildup and ascites considering her history of cirrhosis -Gastroesophageal reflux disease -Bipolar disorder/depression -DVT prophylaxis: Subcutaneous heparin Past Medical History Past Medical History: Eye Disorder, GERD/Reflux, GI Bleed, Liver Disease, Musculoskeletal Disorder, Neurologic Disorder, Seizure Disorder Additional Past Medical History / Comment(s): SEIZURE FROM ETOH, SHINGLE 6 YERAS AGO,MURMUR,TORN CATILAGE IN KNEES PER PTS MOTHER IN LAW-PT HAD LIVER FAILURE IN PAST, HEP C- NEVER TX (PAST HEROIN USE),AND BULEMIA.ANXIETY/ DEPRESSION, PAST SUICIDE ATTEMPS. "IN OCTOBER DRANK RUBBING ALCOHOL". FAMILT STATED PT TAKES SUBOXONE TO HELP HER NOT DRINK AND FOR PAIN IN LEGS/KNEES. Hep C Positive History of Any Multi-Drug Resistant Organisms: MRSA Date of last positivie culture/infection: 04/20/16 MDRO Source:: SPUTUM Past Surgical History: Hernia Repair, Uterine Ablation Additional Past Surgical History / Comment(s): NOVOSURE ENDOMETRIAL ABLATION. PT HAD "THROAT BANDING DONE" Past Anesthesia/Blood Transfusion Reactions: No Reported Reaction Additional Past Anesthesia/Blood Transfusion Reaction / Comment(s): Pt received previous blood transfusion at [facility] per past medical record. Past Psychological History: Anxiety, Bipolar, Depression, Panic Disorder Smoking Status: Unknown if ever smoked Past Alcohol Use History: Abuse, Daily Past Drug Use History: Cocaine, Heroin, IV Drug Use - Past Family History Father Family Medical History: No Reported History Mother Family Medical History: Cancer Additional Family Medical History / Comment(s): COLON AND LUNG CANCER- AT AGE 50 Medications and Allergies Home Medications Medication Instructions Recorded Confirmed Type Bumetanide [BUMEX] 0.5 mg PO DAILY 07/28/22 03/09/23 History Buprenorphine/Naloxone 8Mg/2Mg 0.5 film SL DAILY@1500 07/28/22 03/09/23 History [Suboxone 8-2Mg Film] Buprenorphine/Naloxone 8Mg/2Mg 1 film SL BID 07/28/22 03/09/23 History [Suboxone 8-2Mg Film] Mirtazapine [Remeron] 45 mg PO HS 07/28/22 03/09/23 History Propranolol LA [Inderal LA] 60 mg PO DAILY 07/28/22 03/09/23 History busPIRone HCL 15 mg PO BID 07/28/22 03/09/23 History chlorproMAZINE [Thorazine] 25 mg PO HS 07/28/22 03/09/23 History Baclofen [Lioresal] 10 mg PO Q6H 03/09/23 03/09/23 History Midodrine [ProAmatine] 5 mg PO TID 03/09/23 03/09/23 History tiZANidine HCL [Zanaflex] 8 mg PO Q6H PRN 03/09/23 03/09/23 History Allergies Allergy/AdvReac Type Severity Reaction Status Date / Time Penicillins Allergy Severe Rash/Hives Verified 04/21/22 12:53 Physical Exam Vitals: Vital Signs Temp Pulse Resp BP Pulse Ox 03/09/23 13:00 98.8 F 84 18 151/89 95 03/09/23 11:14 99.8 F H 121 H 18 139/96 95 03/09/23 10:49 113 H 18 133/90 91 L 03/09/23 09:00 116 H 18 140/83 93 L 03/09/23 07:40 99.0 F 117 H 16 126/87 95 03/09/23 05:00 117 H 16 145/95 95 03/09/23 01:00 108 H 16 152/91 97 03/09/23 00:00 114 H 20 148/98 95 03/08/23 22:03 97 14 111/64 97 03/08/23 21:03 97.1 F L 121 H 18 179/102 97 Intake and Output 03/08/23 03/09/23 03/09/23 22:59 06:59 14:59 Other: Weight 72.575 kg Results CBC & Chem 7: 03/09/23 07:02 03/09/23 07:02 Labs: Abnormal Lab Results - Last 24 Hours (Table) 03/08/23 03/08/23 03/08/23 Range/Units 21:26 21:26 21:26 Plt Count 139 L (150-450) k/uL Lymphocytes # 0.7 L (1.0-4.8) k/uL Potassium (3.5-5.1) mmol/L Carbon Dioxide (22-30) mmol/L BUN 25 H (7-17) mg/dL Creatinine 1.23 H (0.52-1.04) mg/dL Glucose 100 H (74-99) mg/dL Plasma Lactic Acid Mariusz 2.1 H* (0.7-2.0) mmol/L Total Bilirubin 3.0 H (0.2-1.3) mg/dL AST 103 H (14-36) U/L ALT 51 H (4-34) U/L Alkaline Phosphatase 176 H (38-126) U/L Troponin I (0.000-0.034) ng/mL Urine Appearance (Clear) Urine Protein (Negative) Urine Blood (Negative) Ur Squamous Epith Cells (0-4) /hpf Urine Bacteria (None) /hpf 03/08/23 03/08/23 03/09/23 Range/Units 21:26 22:33 06:10 Plt Count (150-450) k/uL Lymphocytes # (1.0-4.8) k/uL Potassium (3.5-5.1) mmol/L Carbon Dioxide (22-30) mmol/L BUN (7-17) mg/dL Creatinine (0.52-1.04) mg/dL Glucose (74-99) mg/dL Plasma Lactic Acid Mariusz (0.7-2.0) mmol/L Total Bilirubin (0.2-1.3) mg/dL AST (14-36) U/L ALT (4-34) U/L Alkaline Phosphatase (38-126) U/L Troponin I 1.190 H* 1.260 H* (0.000-0.034) ng/mL Urine Appearance Turbid H (Clear) Urine Protein 1+ H (Negative) Urine Blood Trace H (Negative) Ur Squamous Epith Cells 88 H (0-4) /hpf Urine Bacteria Few H (None) /hpf 03/09/23 03/09/23 Range/Units 07:02 11:05 Plt Count (150-450) k/uL Lymphocytes # (1.0-4.8) k/uL Potassium 3.3 L (3.5-5.1) mmol/L Carbon Dioxide 34 H (22-30) mmol/L BUN 25 H (7-17) mg/dL Creatinine (0.52-1.04) mg/dL Glucose (74-99) mg/dL Plasma Lactic Acid Mariusz (0.7-2.0) mmol/L Total Bilirubin (0.2-1.3) mg/dL AST (14-36) U/L ALT (4-34) U/L Alkaline Phosphatase (38-126) U/L Troponin I 0.956 H* (0.000-0.034) ng/mL Urine Appearance (Clear) Urine Protein (Negative) Urine Blood (Negative) Ur Squamous Epith Cells (0-4) /hpf Urine Bacteria (None) /hpf
--- NOTE | 2023-03-09 15:48 | CONS ---
CONSULTATION CHIEF COMPLAINT: Elevated troponin. HISTORY OF PRESENT ILLNESS: Esha is a 52-year-old lady with history of drug abuse, who presented to hospital with altered mental status. The patient has history of hepatitis C and liver failure. EKG shows sinus tachycardia with nonspecific ST-T wave changes. Troponins are elevated at 1.1 and 1.2. Hemoglobin is normal at 14.8. Past medical history, medications, allergies, family history, and social history are as per chart. I am not able to obtain any meaningful information from the patient. REVIEW OF SYSTEMS: Not able to obtain because of confusion. PHYSICAL EXAMINATION: VITAL SIGNS: Heart rate is 110 beats per minute, blood pressure is 126/87, respiratory rate 16, O2 saturation is 95% on room air. NECK: There is no jugular venous distention. CHEST: Reveals good air entry bilaterally. HEART: Reveals first and second heart sounds. She has a loud grade 4/6 systolic murmur at the apex that radiates to the axilla. ABDOMEN: Soft. EXTREMITIES: Did not reveal any edema. Peripheral pulses are felt. ASSESSMENT: 1. Elevated troponin, could be due to non ST-segment elevation myocardial infarction. 2. Confusional state, could be due to alcohol and drug abuse and certainly could be related to the underlying liver disease. 3. Mitral regurgitation in the patient with history of drug abuse. PLAN: She is not a candidate for anticoagulant, not a candidate for invasive procedures. I will obtain a 2D echo to assess her LV function and wall motion and for further evaluation of the heart murmur. Please check blood cultures given the drug abuse and the murmur. MMODL / IJN: [id number] /
[2023-03-09] MEDS ORDERED: MIDODRINE 5 MG TAB PO SCH (17:30)
[2023-03-09] MEDS ORDERED: POTASSIUM CHLORIDE ER 20 MEQ TAB.ER PO STA (18:17)
[2023-03-09] MEDS ORDERED: hydrALAZINE HCL 25 MG TAB PO STA (18:20)
[2023-03-09] MEDS ORDERED: hydrALAZINE HCL 20 MG/ML 1 ML VIAL IVP PRN (18:20)
[2023-03-09] MEDS ORDERED: IBUPROFEN 200 MG TAB PO PRN (18:43)
[2023-03-09] MEDS ORDERED: chlorproMAZINE 25 MG TAB PO SCH (21:00)
[2023-03-09] MEDS: busPIRone HCl 5 MG TAB PO SCH (21:54)
[2023-03-10] MEDS ORDERED: PROPRANOLOL LA 60 MG CAP.SA.24H PO SCH (09:00)
[2023-03-10] MEDS ORDERED: THIAMINE 100 MG TAB PO SCH (09:00)
[2023-03-10] MEDS: SODIUM CHLORIDE 0.9% 1,000 ML IV SCH ×2 (09:01→21:10)
[2023-03-10] MEDS: busPIRone HCl 5 MG TAB PO SCH ×2 (09:01→21:00)
[2023-03-10] MEDS: THIAMINE 100 MG TAB PO SCH (09:01)
[2023-03-10] MEDS: PANTOPRAZOLE 40 MG/10 ML VIAL IVP SCH (09:01)
[2023-03-10] MEDS: METOPROLOL SUCCINATE (ER) 25 MG TAB.ER.24H PO SCH (09:01)
[2023-03-10 09:03] LABS: Basophils % (A) 0 %; Eosinophils % (A) 0 %; HCT 45.5 % (34.0-46.0); HGB 15.1 gm/dL (11.4-16.0); Lymphocytes # (A) 2.2 k/uL (1.0-4.8); Lymphocytes % (A) 25 %; MCH 30.3 pg (25.0-35.0); MCHC 33.2 g/dL (31.0-37.0); MCV 91.2 fL (80.0-100.0); Mean Platelet Volume 8.9; Monocytes # (A) 0.6 k/uL (0-1.0); Monocytes % (A) 6 %; Neutrophils # (A) 5.8 k/uL (1.3-7.7); Neutrophils % (A) 66 %; Platelet Count 116 k/uL (150-450); Poikilocytosis Slight; RBC 4.99 m/uL (3.80-5.40); RDW 14.3 % (11.5-15.5); WBC 8.8 k/uL (3.8-10.6)
[2023-03-10 09:24] LABS: ALT 37 U/L (4-34); AST 60 U/L (14-36); African American GFR (CKD) >90 (>60 ml/min/1.73 sqM); Albumin 3.5 g/dL (3.5-5.0); Alkaline Phosphatase 142 U/L (38-126); Anion Gap 8 mmol/L; Blood Urea Nitrogen 25 mg/dL (7-17); Calcium 9.1 mg/dL (8.4-10.2); Carbon Dioxide 30 mmol/L (22-30); Chloride 105 mmol/L (98-107); Glucose 92 mg/dL (74-99); Non-African American GFR(CKD) 79 (>60 ml/min/1.73 sqM); Potassium 3.9 mmol/L (3.5-5.1); Sodium 143 mmol/L (137-145)
[2023-03-10 11:56] LABS: Glucose,Whole Blood 113 mg/dL (70-110)
--- NOTE | 2023-03-10 13:25 | P.PN ---
Subjective Progress Note Date: 03/10/23 History of present illness: This is a 52-year-old female with history of drug abuse who presented to [facility] with altered mental status. Patient also has history of hepatitis C and liver failure. EKG sinus tachycardia with nonspecific ST-T wave changes. Troponins elevated at 1.1 1.2. Hemoglobin 14.8. Patient is seen today in follow-up. No change in her mental status. She continues to be confused and does not respond appropriately to questions. He stares blankly. Echocardiogram has been done and report is pending. Physical examination: Gen: This is a 52-year-old female. She appears to be in no acute respiratory distress. VS: reviewed HEENT: Head is atraumatic, normocephalic. Pupils equal, round. Sclerae is anicteric. NECK: Supple. No JVD. . LUNGS: Clear to auscultation. No wheezes or rhonchi. No intercostal retractions. HEART: Regular rate and rhythm. 4/6 systolic murmur at the apex radiates to the axilla. ABDOMEN: Soft No tenderness. EXTREMITIES: No pedal edema. No calf tenderness. NEUROLOGICAL: Patient is awake. Assessment: Elevated troponins could be non-ST elevated myocardial infarction Metabolic encephalopathy most likely due to alcohol and drug abuse, liver disease Mitral regurgitation in a patient with history of drug abuse Plan: Obtain 2-D echocardiogram report Await results of blood culture Further recommendations to follow based upon clinical course Thank you kindly for this consultation. Nurse practitioner note has been reviewed, I agree with documented findings and plan of care. Patient was seen and examined. Objective - Vital Signs Vital signs: Vital Signs Temp 98.3 F 03/10/23 08:55 Pulse 98 03/10/23 08:55 Resp 18 03/10/23 08:55 BP 154/90 03/10/23 08:55 Pulse Ox 96 03/10/23 08:55 FiO2 Intake & Output 03/09/23 03/10/23 03/10/23 18:59 06:59 18:59 Other: # Voids 0 # Bowel Movements 0 - Labs CBC & Chem 7: 03/10/23 08:30 03/10/23 08:30 Labs: Abnormal Lab Results - Last 24 Hours (Table) 03/09/23 03/10/23 03/10/23 Range/Units 11:05 08:30 08:30 Plt Count 116 L (150-450) k/uL BUN 25 H (7-17) mg/dL Total Bilirubin 3.0 H (0.2-1.3) mg/dL AST 60 H (14-36) U/L ALT 37 H (4-34) U/L Alkaline Phosphatase 142 H (38-126) U/L Troponin I 0.956 H* (0.000-0.034) ng/mL
--- NOTE | 2023-03-10 13:55 | CA ---
Transthoracic Echo Report Name: Esha Garcia Age: 52 Gender: F : 1970 Exam Date: 03/09/2023 09:15 Exam Location: [facility] Ht (in): 65 Wt (lb): 160 Ordering Physician: Vivi Hickman DO Attending/Referring Phys: [id number], Marylou Flag Decorator Mike Triana Procedure CPT: Indications: elevated trop, murmur Cardiac Hx: Technical Quality: Fair Contrast 1: Total Dose (mL): Contrast 2: Total Dose (mL): MEASUREMENTS (Male / Female) Normal Values 2D ECHO LV Diastolic Diameter PLAX 3.3 cm 4.2 - 5.9 / 3.9 - 5.3 cm IVS Diastolic Thickness 2.1 cm 0.6 - 1.0 / 0.6 - 0.9 cm LVPW Diastolic Thickness 1.7 cm 0.6 - 1.0 / 0.6 - 0.9 cm LV Relative Wall Thickness 1.1 RV Internal Dim ED PLAX 2.4 cm LVOT Diameter 2.1 cm Aortic Root Diameter 3.3 cm LA Systolic Diameter LX 4.0 cm 3.0 - 4.0 / 2.7 - 3.8 cm LV Diastolic Volume MOD BP 53.5 cm??? 67 - 155 / 56 - 104 cm??? LV Systolic Volume MOD BP 15.9 cm??? 22 - 58 / 19 - 49 cm??? LV Ejection Fraction MOD BP 70.3 % >= 55 % LV Diastolic Volume MOD 4C 50.8 cm??? LV Systolic Volume MOD 4C 12.6 cm??? LV Ejection Fraction MOD 4C 75.1 % LV Diastolic Length 4C 6.5 cm LV Systolic Length 4C 5.1 cm LV Diastolic Volume MOD 2C 51.2 cm??? LV Systolic Volume MOD 2C 17.0 cm??? LV Ejection Fraction MOD 2C 66.8 % LV Diastolic Length 2C 7.3 cm LV Systolic Length 2C 6.2 cm DOPPLER AV Peak Velocity 584.4 cm/s AV Peak Gradient 136.6 mmHg MR Peak Velocity 785.6 cm/s MR Peak Gradient 246.9 mmHg Mitral E Point Velocity 85.3 cm/s Mitral A Point Velocity 146.8 cm/s Mitral E to A Ratio 0.6 MV Deceleration Time 99.5 ms MV E' Velocity 4.4 cm/s Mitral E to MV E' Ratio 19.4 TR Peak Velocity 338.5 cm/s TR Peak Gradient 45.8 mmHg Right Ventricular Systolic Press 50.8 mmHg PV Peak Velocity 256.4 cm/s PV Peak Gradient 26.3 mmHg FINDINGS Left Ventricle Left ventricular ejection fraction is estimated at 65-70 %. Severely increased left ventricular wall thickness. Right Ventricle Normal right ventricular size. Right ventricular hypertrophy. Right Atrium Normal right atrial size. Left Atrium Normal left atrial size. Mitral Valve Structurally normal mitral valve. Caggrork-cr-nowbks mitral regurgitation. Aortic Valve Hypertrophic sub-aortic stenosis. Trileaflet aortic valve. Tricuspid Valve Structurally normal tricuspid valve. Trace tricuspid regurgitation. Pulmonic Valve Pulmonic valve not well visualized. Trace pulmonic regurgitation. Pericardium Normal pericardium. Aorta Aortic root and proximal ascending aorta not well visualized. CONCLUSIONS Severe left ventricular hypertrophy with normal LV function Moderate to severe mitral regurgitation septal hypertrophy with turbulent flow across the left ventricular outflow tract Previewed by: Dr. Facundo Bradford MD (Electronically Signed) Final Date: 10 Mar 2023 13:55
[2023-03-10] MEDS ORDERED: THIAMINE 100 MG/ML 2 ML VIAL IM STA (16:27)
[2023-03-10] MEDS: NYSTATIN 100,000 UNIT/ML SUSP 500,000 UNIT/5 ML CUP PO SCH ×2 (17:30→21:05)
[2023-03-10] MEDS: BACLOFEN 10 MG TAB PO SCH ×2 (17:30→20:59)
[2023-03-10] MEDS: NON FORMULARY DRUG (Buprenorphine/Naloxone 8mg/2mg 1 EACH Film) SUBLINGUAL SCH (20:00)
[2023-03-10] MEDS: MIRTAZAPINE 45 MG TABLET PO SCH (20:59)
[2023-03-10] MEDS: chlorproMAZINE 25 MG TAB PO SCH (21:00)
--- NOTE | 2023-03-10 23:22 | PN ---
PROGRESS NOTE DATE OF SERVICE: 03/10/2023 SUBJECTIVE: This is a 52-year-old woman, who was admitted with change in mental status, possibly had DTs and substance abuse withdrawal also. The patient is being closely monitored. Troponin is also elevated. Cardiology is following the patient closely. PAST MEDICAL HISTORY: Reviewed. REVIEW OF SYSTEMS: The patient has sort of blank stare. PHYSICAL EXAMINATION: VITAL SIGNS: Pulse is 98, blood pressure 121/74, respirations 18. CHEST: Clear to auscultation. CARDIOVASCULAR: S1, S2. ABDOMEN: Soft. NERVOUS SYSTEM: Nonfocal. LABORATORY DATA: Reviewed. ASSESSMENT: 1. Change in mental status, possible acute delirium tremens. 2. Possible substance abuse withdrawal. 3. Acute toxic encephalopathy, multifactorial. 4. Acute non ST-segment elevation myocardial infarction. 5. History of hepatitis C. 6. Acute renal failure. 7. Multiple medical issues. RECOMMENDATIONS AND DISCUSSION: Recommend to continue current management. Continue symptomatic treatment. Otherwise, at this time, I recommend follow up with Cardiology. WA protocol. Prognosis is guarded. Also recommended psych consultation for further evaluation and prognosis guarded. Further recommendations to follow. See orders for further details. MMODL / IJN: [id number] /
[2023-03-11] MEDS: BACLOFEN 10 MG TAB PO SCH ×4 (04:08→22:35)
[2023-03-11 09:35] LABS: ALT 28 U/L (4-34); African American GFR (CKD) >90 (>60 ml/min/1.73 sqM); Anion Gap 5 mmol/L; Blood Urea Nitrogen 17 mg/dL (7-17); Calcium 8.2 mg/dL (8.4-10.2); Carbon Dioxide 28 mmol/L (22-30); Chloride 107 mmol/L (98-107); Glucose 140 mg/dL (74-99); Non-African American GFR(CKD) >90 (>60 ml/min/1.73 sqM); Sodium 140 mmol/L (137-145)
[2023-03-11 09:37] LABS: Basophils % (A) 0 %; Eosinophils % (A) 0 %; HGB 12.5 gm/dL (11.4-16.0); Lymphocytes # (A) 1.4 k/uL (1.0-4.8); Lymphocytes % (A) 33 %; MCH 30.6 pg (25.0-35.0); MCHC 33.7 g/dL (31.0-37.0); MCV 90.7 fL (80.0-100.0); Mean Platelet Volume 7.5; Monocytes # (A) 0.3 k/uL (0-1.0); Monocytes % (A) 6 %; Neutrophils # (A) 2.5 k/uL (1.3-7.7); Neutrophils % (A) 58 %; Poikilocytosis Slight; RBC 4.08 m/uL (3.80-5.40); RDW 14.1 % (11.5-15.5); WBC 4.4 k/uL (3.8-10.6)
[2023-03-11] MEDS: NYSTATIN 100,000 UNIT/ML SUSP 500,000 UNIT/5 ML CUP PO SCH ×4 (09:56→21:29)
[2023-03-11] MEDS: SODIUM CHLORIDE 0.9% 1,000 ML IV SCH (09:56)
[2023-03-11] MEDS: busPIRone HCl 5 MG TAB PO SCH ×2 (09:57→21:28)
[2023-03-11] MEDS: THIAMINE 100 MG TAB PO SCH (09:57)
[2023-03-11] MEDS: PANTOPRAZOLE 40 MG/10 ML VIAL IVP SCH (09:57)
[2023-03-11] MEDS: METOPROLOL SUCCINATE (ER) 25 MG TAB.ER.24H PO SCH (09:57)
[2023-03-11] MEDS: NON FORMULARY DRUG (Buprenorphine/Naloxone 8mg/2mg 1 EACH Film) SUBLINGUAL SCH ×2 (09:58→22:37)
[2023-03-11 10:26] LABS: Platelet Count 99 k/uL (150-450)
[2023-03-11 10:34] LABS: AST 62 U/L (14-36); Albumin 2.9 g/dL (3.5-5.0); Alkaline Phosphatase 97 U/L (38-126); Potassium 3.8 mmol/L (3.5-5.1)
[2023-03-11] MEDS ORDERED: Potassium Replacement Protocol 1 EACH MISC MISCELLANE PRN (10:50)
[2023-03-11] MEDS: MULTIVITAMINS, THERA 1 EACH TAB PO SCH (11:55)
[2023-03-11] MEDS: FOLIC ACID 1 MG TAB PO SCH (11:55)
[2023-03-11] MEDS ORDERED: POTASSIUM CHLORIDE ER 20 MEQ TAB.ER PO SCH (12:00)
--- NOTE | 2023-03-11 12:10 | P.PN ---
Subjective Progress Note Date: 03/11/23 History of present illness: This is a 52-year-old female with history of drug abuse who presented to the [facility] with altered mental status. Patient also has history of hepatitis C and liver failure. EKG sinus tachycardia with nonspecific ST-T wave changes. Troponins elevated at 1.1 1.2. Hemoglobin 14.8. Patient is seen today in follow-up. No change in her mental status. She continues to be confused and does not respond appropriately to questions. He stares blankly. Echocardiogram has been done and report is pending. 03/11 Patient is awake and alert and can answer questions appropriately. Echocardiogram revealed severe LVH with normal EF, moderate to severe MR. Verbal report on blood culture is coag-negative staph. Patient states that she is feeling better. She is eating. Physical examination: Gen: This is a 52-year-old female. She appears to be in no acute respiratory distress. VS: reviewed HEENT: Head is atraumatic, normocephalic. Pupils equal, round. Sclerae is anicteric. NECK: Supple. No JVD. . LUNGS: Clear to auscultation. No wheezes or rhonchi. No intercostal retractions. HEART: Regular rate and rhythm. 4/6 systolic murmur at the apex radiates to the axilla. ABDOMEN: Soft No tenderness. EXTREMITIES: No pedal edema. No calf tenderness. NEUROLOGICAL: Patient is awake and alert. Assessment: Elevated troponins could be non-ST elevated myocardial infarction Metabolic encephalopathy most likely due to alcohol and drug abuse, liver disease Mitral regurgitation in a patient with history of drug abuse Possible bacteremia Plan: Await results of blood culture Patient may require NEFTALI for further evaluation of mitral valve if bacteremia is confirmed. This may be done on Sunday by Dr. Bradford. Further recommendations to follow based upon clinical course Thank you kindly for this consultation. Nurse practitioner note has been reviewed, I agree with documented findings and plan of care. Patient was seen and examined. Objective - Vital Signs Vital signs: Vital Signs Temp 98.2 F 03/10/23 20:00 Pulse 93 03/11/23 04:00 Resp 16 03/11/23 04:00 BP 135/70 03/11/23 04:00 Pulse Ox 97 03/11/23 04:00 FiO2 Intake & Output 0503/11/23 03/11/23 18:59 06:59 18:59 Intake Total 118 540 840 Balance 118 540 840 Intake: Oral 118 540 840 Other: Voiding Method External Catheter External Catheter # Voids 2 1 - Labs CBC & Chem 7: 03/11/23 08:57 03/11/23 08:57 Labs: Abnormal Lab Results - Last 24 Hours (Table) 03/10/23 Range/Units 11:46 POC Glucose (mg/dL) 113 H (70-110) mg/dL
[2023-03-11] MEDS ORDERED: NON FORMULARY DRUG (Buprenorphine/Naloxone 8mg/2mg 1 EACH Film) SUBLINGUAL SCH (15:00)
[2023-03-11] MEDS: cloNIDine HCL 0.1 MG TAB PO SCH ×2 (17:27→21:28)
[2023-03-11] MEDS: chlorproMAZINE 25 MG TAB PO SCH (21:28)
[2023-03-11] MEDS: MIRTAZAPINE 45 MG TABLET PO SCH (21:29)
--- NOTE | 2023-03-12 00:28 | PN ---
PROGRESS NOTE DATE OF SERVICE: 03/11/2023 SUBJECTIVE: This is a 52-year-old woman who was admitted with change in mental status, possibly had DTs. No chest pain. No palpitations. No fever. OBJECTIVE: VITAL SIGNS: Pulse 88, blood pressure 161/94, respirations 18. CHEST: Clear to auscultation. CARDIOVASCULAR: S1, S2. ABDOMEN: Soft. NERVOUS SYSTEM: No focal deficits. LABORATORY DATA: Labs are reviewed. ASSESSMENT: 1. Change in mental status, possible acute delirium tremens. 2. Possible substance abuse withdrawal. 3. Acute toxic encephalopathy, multifactorial. 4. Acute non-ST segment elevation myocardial infarction. 5. History of hepatitis C. 6. Acute renal failure. 7. Multiple medical issues. RECOMMENDATIONS: Recommend to continue current management. Continue symptomatic treatment. Otherwise, I will repeat labs. I will also recommend a small dose of clonidine also. Further recommendations to follow. See orders for further details. MMODL / IJN: [id number] /
[2023-03-12] MEDS: BACLOFEN 10 MG TAB PO SCH ×2 (04:38→08:06)
[2023-03-12 06:24] LABS: Basophils % (A) 0 %; Eosinophils % (A) 0 %; HCT 32.4 % (34.0-46.0); HGB 10.7 gm/dL (11.4-16.0); Lymphocytes # (A) 0.9 k/uL (1.0-4.8); Lymphocytes % (A) 35 %; MCH 29.8 pg (25.0-35.0); MCHC 33.1 g/dL (31.0-37.0); Monocytes # (A) 0.1 k/uL (0-1.0); Monocytes % (A) 5 %; Neutrophils # (A) 1.4 k/uL (1.3-7.7); Neutrophils % (A) 56 %; Poikilocytosis Slight; RDW 14.4 % (11.5-15.5); WBC 2.5 k/uL (3.8-10.6)
[2023-03-12 06:25] LABS: Platelet Count 57 k/uL (150-450)
[2023-03-12 06:37] LABS: African American GFR (CKD) >90 (>60 ml/min/1.73 sqM); Anion Gap 4 mmol/L; Blood Urea Nitrogen 14 mg/dL (7-17); Calcium 7.9 mg/dL (8.4-10.2); Carbon Dioxide 25 mmol/L (22-30); Chloride 111 mmol/L (98-107); Glucose 90 mg/dL (74-99); Non-African American GFR(CKD) >90 (>60 ml/min/1.73 sqM); Potassium 4.4 mmol/L (3.5-5.1); Sodium 140 mmol/L (137-145)
[2023-03-12] MEDS: busPIRone HCl 5 MG TAB PO SCH (08:05)
[2023-03-12] MEDS: THIAMINE 100 MG TAB PO SCH (08:06)
[2023-03-12] MEDS: FOLIC ACID 1 MG TAB PO SCH (08:06)
[2023-03-12] MEDS: METOPROLOL SUCCINATE (ER) 25 MG TAB.ER.24H PO SCH (08:06)
[2023-03-12] MEDS: cloNIDine HCL 0.1 MG TAB PO SCH (08:06)
[2023-03-12] MEDS: MULTIVITAMINS, THERA 1 EACH TAB PO SCH (08:07)
[2023-03-12] MEDS: NON FORMULARY DRUG (Buprenorphine/Naloxone 8mg/2mg 1 EACH Film) SUBLINGUAL SCH (08:07)
[2023-03-12] MEDS: PANTOPRAZOLE 40 MG/10 ML VIAL IVP SCH (08:07)
[2023-03-12] MEDS: NYSTATIN 100,000 UNIT/ML SUSP 500,000 UNIT/5 ML CUP PO SCH (08:12)
[2023-03-12 08:23] VITALS: RESP 16; TEMP 97.8
--- NOTE | 2023-03-12 11:37 | P.PN ---
Subjective Progress Note Date: 03/12/23 History of present illness: This is a 52-year-old female with history of drug abuse who presented to the [facility] with altered mental status. Patient also has history of hepatitis C and liver failure. EKG sinus tachycardia with nonspecific ST-T wave changes. Troponins elevated at 1.1 1.2. Hemoglobin 14.8. Patient is seen today in follow-up. No change in her mental status. She continues to be confused and does not respond appropriately to questions. He stares blankly. Echocardiogram has been done and report is pending. 03/11 Patient is awake and alert and can answer questions appropriately. Echocardiogram revealed severe LVH with normal EF, moderate to severe MR. Verbal report on blood culture is coag-negative staph. Patient states that she is feeling better. She is eating. 03/12 Again today, patient is awake and alert and answering questions appropriately. She states she has had a heart murmur for his lung she can remember. She denies any chest pain or shortness of breath. Patient denies any recent drug use. She states it has been years since she used drugs. Physical examination: Gen: This is a 52-year-old female. She appears to be in no acute respiratory distress. VS: reviewed HEENT: Head is atraumatic, normocephalic. Pupils equal, round. Sclerae is anict tyesha. NECK: Supple. No JVD. . LUNGS: Clear to auscultation. No wheezes or rhonchi. No intercostal retractions. HEART: Regular rate and rhythm. 4/6 systolic murmur at the apex radiates to the axilla. ABDOMEN: Soft No tenderness. EXTREMITIES: No pedal edema. No calf tenderness. NEUROLOGICAL: Patient is awake and alert. Assessment: Elevated troponins could be non-ST elevated myocardial infarction Metabolic encephalopathy most likely due to alcohol and drug abuse, liver disease Moderate to severe mitral regurgitation Possible bacteremia Plan: Await results of blood culture Patient will require NEFTALI for further evaluation of mitral valve. This may be done on Sunday by Dr. Bradford. Further recommendations to follow based upon clinical course Thank you kindly for this consultation. Nurse practitioner note has been reviewed, I agree with documented findings and plan of care. Patient was seen and examined. Objective - Vital Signs Vital signs: Vital Signs Temp 98.5 F 03/12/23 04:00 Pulse 91 03/12/23 04:00 Resp 18 03/12/23 04:00 BP 145/80 03/12/23 04:00 Pulse Ox 98 03/12/23 04:00 FiO2 Intake & Output 03/11/23 03/12/23 03/12/23 18:59 06:59 18:59 Intake Total 1200 237 Balance 1200 237 Intake: Oral 1200 237 Other: Voiding Method Toilet Toilet # Voids 2 1 # Bowel Movements 1 - Labs CBC & Chem 7: 03/12/23 06:07 03/12/23 06:07 Labs: Abnormal Lab Results - Last 24 Hours (Table) 03/11/23 03/11/23 03/12/23 Range/Units 08:57 08:57 06:07 WBC (3.8-10.6) k/uL RBC (3.80-5.40) m/uL Hgb (11.4-16.0) gm/dL Hct (34.0-46.0) % Plt Count 99 L (150-450) k/uL Lymphocytes # (1.0-4.8) k/uL Chloride 111 H (98-107) mmol/L Glucose 140 H (74-99) mg/dL Calcium 8.2 L 7.9 L (8.4-10.2) mg/dL Total Bilirubin 2.0 H (0.2-1.3) mg/dL AST 62 H (14-36) U/L Total Protein 6.0 L (6.3-8.2) g/dL Albumin 2.9 L (3.5-5.0) g/dL 03/12/23 Range/Units 06:07 WBC 2.5 L (3.8-10.6) k/uL RBC 3.60 L (3.80-5.40) m/uL Hgb 10.7 L (11.4-16.0) gm/dL Hct 32.4 L (34.0-46.0) % Plt Count 57 L (150-450) k/uL Lymphocytes # 0.9 L (1.0-4.8) k/uL Chloride (98-107) mmol/L Glucose (74-99) mg/dL Calcium (8.4-10.2) mg/dL Total Bilirubin (0.2-1.3) mg/dL AST (14-36) U/L Total Protein (6.3-8.2) g/dL Albumin (3.5-5.0) g/dL Microbiology - Last 24 Hours (Table) 03/09/23 08:07 Blood Culture - Preliminary Blood
[2023-03-12 11:54] VITALS: BP 122/75; PULSE 86
--- NOTE | 2023-03-13 01:59 | DS ---
DISCHARGE SUMMARY FINAL DIAGNOSES: 1. Change in mental status, possible acute delirium tremens, alcohol withdrawal. 2. Possible substance abuse withdrawal. 3. Acute toxic encephalopathy multifactorial. 4. Acute svg-[id number]-elevation myocardial infarction. 5. History of hepatitis C. 6. Acute renal failure. 7. Multiple medical issues. DISCHARGE DISPOSITION: The patient will be discharged in stable condition with guarded prognosis. HISTORY OF PRESENT ILLNESS: This is a 52-year-old woman with a past medical history of multiple medical problems, admitted with change in mental status, possible substance abuse withdrawal, non ST- segment elevation myocardial infarction. Cardiology saw the patient and medication adjusted. The patient improved significantly. Discharged in stable condition. Guarded prognosis. Total time taken, 35 minutes. PHYSICAL EXAMINATION: VITAL SIGNS: Stable. CARDIOVASCULAR: S1, S2. ABDOMEN: Soft. NERVOUS SYSTEM: No focal deficits. The patient requires outpatient NEFTALI. CAMRYN / MICHELINE: [id number] /
== END 2023-03-12 12:41 | disposition home or self-care (01) | DRG 896 ==
LOC: EC 21:02 → 3SCARD 03-09 00:11
PROVIDERS: ADMIT Hospitalist; ATTEND Hospitalist
PROC: HZ2ZZZZ Detoxification Services for Substance Abuse Treatment (ICD-10-PCS; principal; 2023-03-11)
DX: F10.131 Alcohol abuse with withdrawal delirium (principal); G92.8 Other toxic encephalopathy; I21.A1 Myocardial infarction type 2; R78.81 Bacteremia; N17.9 Acute kidney failure, unspecified; K76.82 Hepatic encephalopathy; F31.9 Bipolar disorder, unspecified; K74.60 Unspecified cirrhosis of liver; F19.139 Other psychoactive substance abuse with withdrawal, unspecified; I34.0 Nonrheumatic mitral (valve) insufficiency; Y90.0 Blood alcohol level of less than 20 mg/100 ml; R00.0 Tachycardia, unspecified; S00.11XA Contusion of right eyelid and periocular area, initial encounter; R04.0 Epistaxis; T50.7X5A Adverse effect of analeptics and opioid receptor antagonists, initial encounter; T42.6X5A Adverse effect of other antiepileptic and sedative-hypnotic drugs, initial encounter; T42.8X5A Adverse effect of antiparkinsonism drugs and other central muscle-tone depressants, initial encounter; E86.0 Dehydration; K21.9 Gastro-esophageal reflux disease without esophagitis; E86.1 Hypovolemia; B95.8 Unspecified staphylococcus as the cause of diseases classified elsewhere; Z86.59 Personal history of other mental and behavioral disorders; Z79.891 Long term (current) use of opiate analgesic; Z87.19 Personal history of other diseases of the digestive system; Z91.51 Personal history of suicidal behavior; Z86.14 Personal history of Methicillin resistant Staphylococcus aureus infection; Z88.0 Allergy status to penicillin; Z79.899 Other long term (current) drug therapy; Z86.19 Personal history of other infectious and parasitic diseases
CPT/HCPCS: 36415; 70450; 71045; 72125; 80048; 80053; 80143; 80179; 80306; 80320; 81001; 82140; 83605; 83880; 84484; 85025; 85610; 85730; 86850; 86900; 86901; 87040; 93005; 93306; 96361; 96372; 96374; 96375; 96376; 99285

== ENCOUNTER 2023-06-24 20:24 | Inpatient (IN) | payer MEDICARE, OTHER ==
[2023-06-24] MEDS ORDERED: SODIUM CHLORIDE 0.9% 1,000 ML IV ONE (20:34)
[2023-06-24 20:45] LABS: Basophils % (A) 0 %; Eosinophils % (A) 0 %; HCT 36.4 % (34.0-46.0); HGB 12.7 gm/dL (11.4-16.0); Lymphocytes % (A) 7 %; MCH 32.2 pg (25.0-35.0); MCHC 34.9 g/dL (31.0-37.0); MCV 92.4 fL (80.0-100.0); Monocytes # (A) 1.4 k/uL (0-1.0); Monocytes % (A) 10 %; Neutrophils % (A) 80 %; Platelet Count 125 k/uL (150-450); Poikilocytosis Slight; RBC 3.94 m/uL (3.80-5.40); RDW 15.5 % (11.5-15.5); WBC 13.7 k/uL (3.8-10.6)
[2023-06-24 20:55] LABS: Partial Thromboplastin Time 27.1 sec (22.0-30.0)
[2023-06-24 21:14] LABS: ALT 25 U/L (4-34); AST 41 U/L (14-36); African American GFR (CKD) 82 (>60 ml/min/1.73 sqM); Albumin 3.8 g/dL (3.5-5.0); Alcohol <10 mg/dL; Alkaline Phosphatase 166 U/L (38-126); Anion Gap 9 mmol/L; Blood Urea Nitrogen 26 mg/dL (7-17); Calcium 9.5 mg/dL (8.4-10.2); Carbon Dioxide 20 mmol/L (22-30); Chloride 105 mmol/L (98-107); Glucose 119 mg/dL (74-99); Lipase 49 U/L (23-300); Non-African American GFR(CKD) 71 (>60 ml/min/1.73 sqM); Potassium 4.8 mmol/L (3.5-5.1); Sodium 134 mmol/L (137-145); Total Bilirubin 2.5 mg/dL (0.2-1.3); Total Protein 7.5 g/dL (6.3-8.2)
[2023-06-24 21:22] LABS: NT-Pro-B-Type Natriuretic Pept 1890 pg/mL
--- NOTE | 2023-06-24 21:28 | XR ---
EXAMINATION TYPE: XR chest 1V DATE OF EXAM: 06/24/2023 8:49 PM COMPARISON: Chest radiographs from 03/08/2023 TECHNIQUE: XR chest 1V Frontal view of the chest. CLINICAL INDICATION:Female, 52 years old with history of AMS; FINDINGS: Lungs/Pleura: There are airspace opacities present most proximal right. These are new from prior.. Th ere is no evidence of pleural effusion, focal consolidation, or pneumothorax. Pulmonary vascularity: Unremarkable. Heart/mediastinum: Cardiomediastinal silhouette is enlarged and stable. Musculoskeletal: No acute osseous pathology. IMPRESSION: Right-sided predominant airspace, opacities correlate for pneumonia. Alternatively given cardiomegaly correlate with serum BNP.
[2023-06-24 22:11] LABS: Appearance,Urine Clear (Clear); Bilirubin,Urine Negative (Negative); Blood,Urine Small (Negative); Color,Urine Yellow; Glucose,Urine (UA) Negative (Negative); Ketones,Urine Negative (Negative); Leukocyte Esterase,Urine Negative (Negative); Mucus,Urine Rare /hpf; Nitrite,Urine Negative (Negative); PH, Urine 6.5 (5.0-8.0); Protein,Urine 2+ (Negative); RBC,Urine 2 /hpf (0-5); Specific Gravity,Urine 1.008 (1.001-1.035); WBC,Urine <1 /hpf (0-5)
[2023-06-24 22:27] LABS: Amphetamine Screen,Urine Not Detected (NotDetected); Barbiturate Screen,Urine Not Detected (NotDetected); Benzodiazepines Screen,Urine Not Detected (NotDetected); Cocaine Screen,Urine Not Detected (NotDetected); Methadone Screen, Urine Not Detected (NotDetected); Opiate Screen,Urine Not Detected (NotDetected); Oxycodone Screen, Urine Not Detected (NotDetected); Phencyclidine Screen,Urine Not Detected (NotDetected); Tricyclic Antidepressant,Urine Not Detected (NotDetected); Urn Cannabinoid Scrn Not Detected (NotDetected)
[2023-06-24 23:23] LABS: VBG PH 7.32 (7.31-7.41)
[2023-06-24] MEDS ORDERED: ETOMIDATE 2 MG/ML 10 ML VIAL IVP STA (23:57)
[2023-06-24] MEDS ORDERED: SUCCINYLCHOLINE CHLORIDE 200 MG/10 ML VIAL IV STA (23:57)
[2023-06-25 00:38] LABS: Allen Test Performed? Yes
--- NOTE | 2023-06-25 00:44 | CT ---
EXAM: CT Head Without Intravenous Contrast CLINICAL HISTORY: AMS TECHNIQUE: Axial computed tomography images of the head/brain without intravenous contrast. CTDI is 49.2 mGy and DLP is 1189.4 mGy-cm. This CT exam was performed using one or more of the following dose reduction techniques: automated exposure control, adjustment of the mA and/or kV according to patient size, and/or use of iterative reconstruction technique. COMPARISON: 03/08/2023 FINDINGS: Brain: No acute stroke. No hemorrhage. No abnormal extra-axial fluid collection. No significant white matter disease. Ventricles: No hydrocephalus. No midline shift. Bones/joints: Unremarkable. No acute fracture. Soft tissues: Unremarkable. Sinuses: Unremarkable as visualized. No acute sinusitis. Lines: Partially visualized nasotracheal tube. IMPRESSION: No acute abnormality.
[2023-06-25] MEDS ORDERED: NALOXONE 0.4 MG/ML 1 ML VIAL IV PRN (00:45)
[2023-06-25] MEDS ORDERED: AZITHROMYCIN 500 MG in SODIUM CHLORIDE 0.9% 250 ML IVPB STA (00:49)
[2023-06-25 00:50] LABS: ABG Base Excess -5.6 mmol/L; ABG HCO3 21 mmol/L (21-25); ABG Oxygen Saturation 98.2 % (94-97); ABG PCO2 44 mmHg (35-45); ABG PH 7.29 (7.35-7.45); ABG PO2 128 mmHg (83-108); ABG TCO2 22 mmol/L (19-24)
--- NOTE | 2023-06-25 00:57 | ED ---
General Adult HPI - General Chief complaint: Overdose Stated complaint: Overdose Time Seen by Provider: 06/24/23 20:33 Source: patient Mode of arrival: EMS Limitations: no limitations - History of Present Illness Initial comments: This is a 52-year-old female who presents emergency department via EMS for altered mental status. It was reported by EMS that the patient was found to be altered by family however there was no further history obtained at this time. The patient was minimally responsive however was able to maintain her own airway on arrival. Is reported the patient was being bagged by EMS. No further history could be obtained at this time by EMS nor by the patient. - Related Data Home Medications Medication Instructions Recorded Confirmed Bumetanide [BUMEX] 0.5 mg PO DAILY 07/28/22 03/09/23 Buprenorphine/Naloxone 8Mg/2Mg 0.5 film SL DAILY@1500 07/28/22 03/09/23 [Suboxone 8-2Mg Film] Buprenorphine/Naloxone 8Mg/2Mg 1 film SL BID 07/28/22 03/09/23 [Suboxone 8-2Mg Film] Mirtazapine [Remeron] 45 mg PO HS 07/28/22 03/09/23 Propranolol LA [Inderal LA] 60 mg PO DAILY 07/28/22 03/09/23 busPIRone HCL 15 mg PO BID 07/28/22 03/09/23 chlorproMAZINE [Thorazine] 25 mg PO HS 07/28/22 03/09/23 Baclofen [Lioresal] 10 mg PO Q6H 03/09/23 03/09/23 Midodrine [ProAmatine] 5 mg PO TID 03/09/23 03/09/23 tiZANidine HCL [Zanaflex] 8 mg PO Q6H PRN 03/09/23 03/09/23 Previous Rx's Medication Instructions Recorded Aspirin EC [Ecotrin Low Dose] 81 mg PO DAILY #30 tab 03/12/23 Atorvastatin [Lipitor] 10 mg PO DAILY #30 tab 03/12/23 Metoprolol Succinate (ER) [Toprol 25 mg PO DAILY #30 tab 03/12/23 XL] cloNIDine HCL [Catapres] 0.1 mg PO BID #60 tab 03/12/23 Allergies Allergy/AdvReac Type Severity Reaction Status Date / Time Penicillins Allergy Severe Rash/Hives Verified 04/21/22 12:53 Review of Systems ROS Statement: Those systems with pertinent positive or pertinent negative responses have been documented in the HPI. 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 "IN OCTOBER DRANK RUBBING ALCOHOL". FAMILT STATED PT TAKES SUBOXONE TO HELP HER NOT DRINK AND FOR PAIN IN LEGS/KNEES. Hep C Positive History of Any Multi-Drug Resistant Organisms: MRSA Date of last positivie culture/infection: 04/20/16 MDRO Source:: SPUTUM Past Surgical History: Hernia Repair, Uterine Ablation Additional Past Surgical History / Comment(s): NOVOSURE ENDOMETRIAL ABLATION. PT HAD "THROAT BANDING DONE" Past Anesthesia/Blood Transfusion Reactions: No Reported Reaction Additional Past Anesthesia/Blood Transfusion Reaction / Comment(s): Pt received previous blood transfusion at [facility] per past medical record. Past Psychological History: Anxiety, Bipolar, Depression, Panic Disorder Smoking Status: Unknown if ever smoked Past Alcohol Use History: Abuse, Daily Past Drug Use History: Cocaine, Heroin, IV Drug Use - Past Family History Father Family Medical History: No Reported History Mother Family Medical History: Cancer Additional Family Medical History / Comment(s): COLON AND LUNG CANCER- AT AGE 50 General Exam Limitations: altered mental status (ANOx0, minimally responsive) General appearance: obtunded Head exam: Present: atraumatic, normocephalic, normal inspection Eye exam: Present: normal appearance, PERRL Pupils: Present: normal accommodation ENT exam: Present: normal exam, normal oropharynx, mucous membranes moist Neck exam: Present: normal inspection, full ROM Respiratory exam: Present: rhonchi ([place] on the right lung field) Cardiovascular Exam: Present: normal rhythm, bradycardia, normal heart sounds GI/Abdominal exam: Present: soft, normal bowel sounds Extremities exam: Present: normal inspection, full ROM Back exam: Present: normal inspection, full ROM Neurological exam: Present: altered (ANOx0, minimally responsive) Psychiatric exam: Present: other (minimally responsive). Absent: normal affect, normal mood Skin exam: Present: warm, dry Course Vital Signs 06/24/23 06/24/23 06/24/23 20:25 20:41 21:00 Temperature 98.6 F Pulse Rate 57 L 55 L 56 L Respiratory 14 22 26 H Rate Blood Pressure 170/112 164/107 156/99 O2 Sat by Pulse 100 100 100 Oximetry Fraction of Inspired Oxygen (FIO2) 06/24/23 06/24/23 06/24/23 21:07 21:30 22:00 Temperature Pulse Rate 52 L 52 L Respiratory 26 H 24 26 H Rate Blood Pressure 166/108 171/112 O2 Sat by Pulse 100 100 Oximetry Fraction of Inspired Oxygen (FIO2) 06/24/23 06/24/23 06/24/23 23:00 23:43 23:58 Temperature Pulse Rate Respiratory Rate Blood Pressure 176/114 O2 Sat by Pulse 87 L Oximetry Fraction of 100 Inspired Oxygen (FIO2) 06/24/23 06/25/23 23:59 00:00 Temperature Pulse Rate 53 L Respiratory 18 Rate Blood Pressure 155/108 O2 Sat by Pulse 99 Oximetry Fraction of 100 Inspired Oxygen (FIO2) EKG Findings - EKG Comments: EKG Findings:: An EKG was obtained and was interpreted by myself showing a rate of 57, TX interval 194, QRS duration 107 and QTC of 464. This EKG showed a sinus bradycardia with no ST segment elevation or depression noted. Procedures - Intubation Sedative: Etomidate Mg Given: 20 Paralytic: Succinylcholine Mg Given: 70 Laryngoscope: Mary Size: 4 ET Tube Size: 7.5 ET Tube Uncuffed: No Tube Secured Depth (cm): 25 Tube Secured Location: lips Tube Placement Confirmation: visualized tube passing through cords, equal breath sounds bilaterally, confirmation by capnometry Patient Tolerated Procedure: well Intubation Complications: none Medical Decision Making - Medical Decision Making Was pt. sent in by a medical professional or institution (JOEL Lin, TEAM MEMBER, urgent care, hospital, or [facility]...) When possible be specific @ -No Did you speak to anyone other than the patient for history (EMS, parent, family, police, friend...)? What history was obtained from this source @ -Yes, EMS and stated that the family told EMS that the patient was found down however cannot provide any details and was not concerned when they arrived. Did you review nursing and triage notes (agree or disagree)? Why? @ -I reviewed and agree with nursing and triage notes Were old charts reviewed (outside hosp., previous admission, EMS record, old EKG, old radiological studies, urgent care reports/EKG's, [facility] records)? Report findings @ -No old charts were reviewed Differential Diagnosis (chest pain, altered mental status, abdominal pain women, abdominal pain men, vaginal bleeding, weakness, fever, dyspnea, syncope, headache, dizziness, GI bleed, back pain, seizure, CVA, palpatations, mental health)? @ -Alcohol intoxication, acute overdose, CO2 narcosis, pneumonia EKG interpreted by me (3pts min.). @ -As above X-rays interpreted by me (1pt min.). @ -Chest x-ray was obtained and was interpreted by myself showing a right-sided predominant airspace, opacities correlating for pneumonia. Alternatively, given Cardizem and we can correlate with serum BMP. CT interpreted by me (1pt min.). @ -CT head was obtained and was interpreted by myself showing no acute abnormalities U/S interpreted by me (1pt. min.). @ -None done What testing was considered but not performed or refused? (CT, X-rays, U/S, labs)? Why? @ -None What meds were considered but not given or refused? Why? @ -None Did you discuss the management of the patient with other professionals (professionals i.e. , PA, TEAM MEMBER, lab, RT, psych nurse, social service manager, coffee roaster helper, teacher, sustainability officer, casey saw operator)? Give summary @ -Yes, the primary care physician was contacted regarding admission. The plug overwrap machine tender, TEAM MEMBER, Charles was also contacted regarding admission as the patient was intubated. Was smoking cessation discussed for >3mins.? @ -No Was critical care preformed (if so, how long)? @ -Yes, see above Were there social determinants of health that impacted care today? How? (Homelessness, low income, unemployed, alcoholism, drug addiction, transportation, low edu. Level, literacy, decrease access to med. care, group home, rehab)? @ -No Was there de-escalation of care discussed even if they declined (Discuss DNR or withdrawal of care, Hospice)? DNR status @ -No What co-morbidities impacted this encounter? (DM, HTN, Smoking, COPD, CAD, Cancer, CVA, ARF, Chemo, Hep., AIDS, mental health diagnosis, sleep apnea, morbid obesity)? @ -None Was patient admitted / discharged? Hospital course, mention meds given and route, prescriptions, significant lab abnormalities, going to OR and other pertinent info. @ -The patient was seen and evaluated emergency department. Physical exam, the patient was resting in bed, minimally responsive however was able to tolerate her own secretions and airway. The patient was placed on a nonrebreather and had sufficient auction saturation. Workup was obtained and was largely within normal limits including urinalysis, drug screen and alcohol, a head CT was also obtained at this time and was negative. Chest x-ray showed possible pneumonia on the right lung versus congestive heart failure exacerbation. While being observed emergency department, the patient's oxygenation saturation continued to decrease and the patient did not become more alert. Because of this and the patient's altered mental status, the patient could not be placed on BiPAP at this time and was decided to intubate the patient for airway protection. The patient was placed on a ventilator and did have increasing PEEP due to likely ARDS versus aspiration pneumonia. Sepsis workup was obtained including blood cultures and sputum cultures however the patient did not receive the 30 mL per KG of fluids secondary to the patient's fluid retention in her lungs. The patient did have antibiotic coverage for possible aspiration pneumonia. Because of this, the patient will be admitted to the ICU for further workup and evaluation. The patient was admitted in stable but serious condition. Undiagnosed new problem with uncertain prognosis? @ -No Drug Therapy requiring intensive monitoring for toxicity (Heparin, Nitro, Insulin, Cardizem)? @ -Propofol for sedation Were any procedures done? @ -Yes, intubation Diagnosis/symptom? @ -Acute altered mental status, ventilator dependent respiratory failure, a spiration pneumonia versus ARDS Acute, or Chronic, or Acute on Chronic? @ -Acute Uncomplicated (without systemic symptoms) or Complicated (systemic symptoms)? @ -Complicated Side effects of treatment? @ -No Exacerbation, Progression, or Severe Exacerbation? @ -No Poses a threat to life or bodily function? How? (Chest pain, USA, SC, pneumonia, PE, COPD, DKA, ARF, appy, cholecystitis, CVA, Diverticulitis, Homicidal, Suicidal, threat to staff... and all critical care pts) @ -Yes, continued respiratory failure can lead to permanent damage and possible . - Lab Data Result diagrams: 06/24/23 20:38 06/24/23 20:38 Lab Results 06/24/23 06/24/23 06/24/23 Range/Units 20:38 20:38 20:38 WBC 13.7 H (3.8-10.6) k/uL RBC 3.94 (3.80-5.40) m/uL Hgb 12.7 (11.4-16.0) gm/dL Hct 36.4 (34.0-46.0) % MCV 92.4 (80.0-100.0) fL MCH 32.2 (25.0-35.0) pg MCHC 34.9 (31.0-37.0) g/dL RDW 15.5 (11.5-15.5) % Plt Count 125 L (150-450) k/uL MPV 10.0 Neutrophils % 80 % Lymphocytes % 7 % Monocytes % 10 % Eosinophils % 0 % Basophils % 0 % Neutrophils # 11.0 H (1.3-7.7) k/uL Lymphocytes # 1.0 (1.0-4.8) k/uL Monocytes # 1.4 H (0-1.0) k/uL Eosinophils # 0.0 (0-0.7) k/uL Basophils # 0.0 (0-0.2) k/uL Poikilocytosis Slight PT 11.0 (9.0-12.0) sec INR 1.0 (<1.2) APTT 27.1 (22.0-30.0) sec VBG pH (7.31-7.41) VBG pCO2 (37-51) mmHg VBG HCO3 (24-28) mmol/L Sodium 134 L (137-145) mmol/L Potassium 4.8 (3.5-5.1) mmol/L Chloride 105 (98-107) mmol/L Carbon Dioxide 20 L (22-30) mmol/L Anion Gap 9 mmol/L BUN 26 H (7-17) mg/dL Creatinine 0.93 (0.52-1.04) mg/dL Est GFR (CKD-EPI)AfAm 82 (>60 ml/min/1.73 sqM) Est GFR (CKD-EPI)NonAf 71 (>60 ml/min/1.73 sqM) Glucose 119 H (74-99) mg/dL Calcium 9.5 (8.4-10.2) mg/dL Magnesium 2.0 (1.6-2.3) mg/dL Total Bilirubin 2.5 H (0.2-1.3) mg/dL AST 41 H (14-36) U/L ALT 25 (4-34) U/L Alkaline Phosphatase 166 H (38-126) U/L Troponin I (0.000-0.034) ng/mL NT-Pro-B Natriuret Pep 1890 pg/mL Total Protein 7.5 (6.3-8.2) g/dL Albumin 3.8 (3.5-5.0) g/dL Lipase 49 (23-300) U/L Urine Color Urine Appearance (Clear) Urine pH (5.0-8.0) Ur Specific [place] (1.001-1.035) Urine Protein (Negative) Urine Glucose (UA) (Negative) Urine Ketones (Negative) Urine Blood (Negative) Urine Nitrite (Negative) Urine Bilirubin (Negative) Urine Urobilinogen (<2.0) mg/dL Ur Leukocyte Esterase (Negative) Urine RBC (0-5) /hpf Urine WBC (0-5) /hpf Urine Mucus (None) /hpf Urine Opiates Screen (NotDetected) Ur Oxycodone Screen (NotDetected) Urine Methadone Screen (NotDetected) Ur Propoxyphene Screen (NotDetected) Ur Barbiturates Screen (NotDetected) U Tricyclic Antidepress (NotDetected) Ur Phencyclidine Scrn (NotDetected) Ur Amphetamines Screen (NotDetected) U Methamphetamines Scrn (NotDetected) U Benzodiazepines Scrn (NotDetected) Urine Cocaine Screen (NotDetected) U Marijuana (THC) Screen (NotDetected) Serum Alcohol <10 mg/dL 06/24/23 06/24/23 06/24/23 Range/Units 20:38 21:53 21:55 WBC (3.8-10.6) k/uL RBC (3.80-5.40) m/uL Hgb (11.4-16.0) gm/dL Hct (34.0-46.0) % MCV (80.0-100.0) fL MCH (25.0-35.0) pg MCHC (31.0-37.0) g/dL RDW (11.5-15.5) % Plt Count (150-450) k/uL MPV Neutrophils % % Lymphocytes % % Monocytes % % Eosinophils % % Basophils % % Neutrophils # (1.3-7.7) k/uL Lymphocytes # (1.0-4.8) k/uL Monocytes # (0-1.0) k/uL Eosinophils # (0-0.7) k/uL Basophils # (0-0.2) k/uL Poikilocytosis PT (9.0-12.0) sec INR (<1.2) APTT (22.0-30.0) sec VBG pH (7.31-7.41) VBG pCO2 (37-51) mmHg VBG HCO3 (24-28) mmol/L Sodium (137-145) mmol/L Potassium (3.5-5.1) mmol/L Chloride (98-107) mmol/L Carbon Dioxide (22-30) mmol/L Anion Gap mmol/L BUN (7-17) mg/dL Creatinine (0.52-1.04) mg/dL Est GFR (CKD-EPI)AfAm (>60 ml/min/1.73 sqM) Est GFR (CKD-EPI)NonAf (>60 ml/min/1.73 sqM) Glucose (74-99) mg/dL Calcium (8.4-10.2) mg/dL Magnesium (1.6-2.3) mg/dL Total Bilirubin (0.2-1.3) mg/dL AST (14-36) U/L ALT (4-34) U/L Alkaline Phosphatase (38-126) U/L Troponin I 0.028 (0.000-0.034) ng/mL NT-Pro-B Natriuret Pep pg/mL Total Protein (6.3-8.2) g/dL Albumin (3.5-5.0) g/dL Lipase (23-300) U/L Urine Color Yellow Urine Appearance Clear (Clear) Urine pH 6.5 (5.0-8.0) Ur Specific [place] 1.008 (1.001-1.035) Urine Protein 2+ H (Negative) Urine Glucose (UA) Negative (Negative) Urine Ketones Negative (Negative) Urine Blood Small H (Negative) Urine Nitrite Negative (Negative) Urine Bilirubin Negative (Negative) Urine Urobilinogen 4.0 (<2.0) mg/dL Ur Leukocyte Esterase Negative (Negative) Urine RBC 2 (0-5) /hpf Urine WBC <1 (0-5) /hpf Urine Mucus Rare H (None) /hpf Urine Opiates Screen Not Detected (NotDetected) Ur Oxycodone Screen Not Detected (NotDetected) Urine Methadone Screen Not Detected (NotDetected) Ur Propoxyphene Screen Not Detected (NotDetected) Ur Barbiturates Screen Not Detected (NotDetected) U Tricyclic Antidepress Not Detected (NotDetected) Ur Phencyclidine Scrn Not Detected (NotDetected) Ur Amphetamines Screen Not Detected (NotDetected) U Methamphetamines Scrn Not Detected (NotDetected) U Benzodiazepines Scrn Not Detected (NotDetected) Urine Cocaine Screen Not Detected (NotDetected) U Marijuana (THC) Screen Not Detected (NotDetected) Serum Alcohol mg/dL 06/24/23 Range/Units 22:52 WBC (3.8-10.6) k/uL RBC (3.80-5.40) m/uL Hgb (11.4-16.0) gm/dL Hct (34.0-46.0) % MCV (80.0-100.0) fL MCH (25.0-35.0) pg MCHC (31.0-37.0) g/dL RDW (11.5-15.5) % Plt Count (150-450) k/uL MPV Neutrophils % % Lymphocytes % % Monocytes % % Eosinophils % % Basophils % % Neutrophils # (1.3-7.7) k/uL Lymphocytes # (1.0-4.8) k/uL Monocytes # (0-1.0) k/uL Eosinophils # (0-0.7) k/uL Basophils # (0-0.2) k/uL Poikilocytosis PT (9.0-12.0) sec INR (<1.2) APTT (22.0-30.0) sec VBG pH 7.32 (7.31-7.41) VBG pCO2 44 (37-51) mmHg VBG HCO3 22 L (24-28) mmol/L Sodium (137-145) mmol/L Potassium (3.5-5.1) mmol/L Chloride (98-107) mmol/L Carbon Dioxide (22-30) mmol/L Anion Gap mmol/L BUN (7-17) mg/dL Creatinine (0.52-1.04) mg/dL Est GFR (CKD-EPI)AfAm (>60 ml/min/1.73 sqM) Est GFR (CKD-EPI)NonAf (>60 ml/min/1.73 sqM) Glucose (74-99) mg/dL Calcium (8.4-10.2) mg/dL Magnesium (1.6-2.3) mg/dL Total Bilirubin (0.2-1.3) mg/dL AST (14-36) U/L ALT (4-34) U/L Alkaline Phosphatase (38-126) U/L Troponin I (0.000-0.034) ng/mL NT-Pro-B Natriuret Pep pg/mL Total Protein (6.3-8.2) g/dL Albumin (3.5-5.0) g/dL Lipase (23-300) U/L Urine Color Urine Appearance (Clear) Urine pH (5.0-8.0) Ur Specific [place] (1.001-1.035) Urine Protein (Negative) Urine Glucose (UA) (Negative) Urine Ketones (Negative) Urine Blood (Negative) Urine Nitrite (Negative) Urine Bilirubin (Negative) Urine Urobilinogen (<2.0) mg/dL Ur Leukocyte Esterase (Negative) Urine RBC (0-5) /hpf Urine WBC (0-5) /hpf Urine Mucus (None) /hpf Urine Opiates Screen (NotDetected) Ur Oxycodone Screen (NotDetected) Urine Methadone Screen (NotDetected) Ur Propoxyphene Screen (NotDetected) Ur Barbiturates Screen (NotDetected) U Tricyclic Antidepress (NotDetected) Ur Phencyclidine Scrn (NotDetected) Ur Amphetamines Screen (NotDetected) U Methamphetamines Scrn (NotDetected) U Benzodiazepines Scrn (NotDetected) Urine Cocaine Screen (NotDetected) U Marijuana (THC) Screen (NotDetected) Serum Alcohol mg/dL Critical Care Time Critical Care Time: Yes Total Critical Care Time: 46 Disposition Clinical Impression: AMS (altered mental status), Respiratory failure requiring intubation, Aspiration pneumonia, ARDS (adult respiratory distress syndrome) Disposition: ADMITTED IP TO THIS [facility] Condition: Serious Is patient prescribed a controlled substance at d/c from ED?: No Referrals: None,Stated [Primary Care Provider] - 1-2 days Time of Disposition: 23:00 Decision to Admit Reason: Admit from EC Decision Date: 06/24/23 Decision Time: 23:00
--- NOTE | 2023-06-25 01:29 | XR ---
EXAM: XR Chest, 1 View CLINICAL HISTORY: Intubation TECHNIQUE: Frontal view of the chest. COMPARISON: 06/24/2023. FINDINGS: Endotracheal tube tip is 4.4 cm above the marsha. NG tube tip is in the stomach 4.5 cm beyond the gastroesophageal junction. Side-port is at the distal esophagus. Heart is enlarged. Redemonstrated asymmetric right greater than left central infiltrates. The left costophrenic angle is excluded. No visible pleural effusion or pneumothorax IMPRESSION: Endotracheal tube tip is 4.4 cm above the marsha. NG tube tip is in the stomach 4.5 cm beyond the gastroesophageal junction. Otherwise no change.
[2023-06-25] MEDS ORDERED: FUROSEMIDE 10 MG/ML 4 ML VIAL IV STA (01:40)
[2023-06-25 01:45] LABS: Glucose,Whole Blood 119 mg/dL (70-110)
--- NOTE | 2023-06-25 02:25 | P.PCN ---
Date of Procedure: 06/25/23 Preoperative Diagnosis: Acute hypoxemic respiratory failure requiring mechanical ventilation Postoperative Diagnosis: Acute hypoxemic respiratory failure requiring mechanical ventilation Procedure(s) Performed: Insertion of a left radial arterial line Indications for Procedure: Continuous blood pressure monitoring and frequent blood draws Description of Procedure: Informed consent was obtained, and a procedural timeout was performed . The patient was placed in supine position. The left radial region was prepared in a sterile fashion, and a sterile drape was applied. The left radial artery was palpated, easily cannulated, and a guidewire was placed. A Cook catheter was inserted over the guidewire, and the guidewire was removed. There was good arterial blood flow, good arterial waveform, and no complications. The line was secured with using a 3-0 silk suture.
[2023-06-25] MEDS: CLEVIDIPINE BUTYRATE 25 MG in EMPTY BAG 1 BAG IV SCH (03:06)
[2023-06-25 03:07] LABS: Basophils % (A) 0 %; Eosinophils % (A) 0 %; HCT 36.9 % (34.0-46.0); HGB 12.8 gm/dL (11.4-16.0); Lymphocytes % (A) 8 %; MCH 32.5 pg (25.0-35.0); MCHC 34.8 g/dL (31.0-37.0); MCV 93.6 fL (80.0-100.0); Mean Platelet Volume 9.3; Monocytes % (A) 7 %; Neutrophils # (A) 10.7 k/uL (1.3-7.7); Neutrophils % (A) 82 %; Platelet Count 139 k/uL (150-450); Poikilocytosis Slight; RBC 3.95 m/uL (3.80-5.40); RDW 15.5 % (11.5-15.5)
--- NOTE | 2023-06-25 03:18 | P.CNPUL ---
History of Present Illness Consult date: 06/25/23 Requesting physician: [facility] [place] Reason for consult: other (Respiratory failure requiring intubation) Chief complaint: Altered mental status History of present illness: I am seeing this patient in consultation today 06/25/2023 after the patient presented with altered mental status and required intubation for airway protection. Patient is a 52-year-old white female with past medical history significant for polysubstance abuse on suboxone, alcoholism, previous alcohol withdrawal seizures, liver disease, hepatitis C, previous suicide attempts, GI bleeding, GERD, anxiety and depression. Patient is currently intubated and unable to provide information. Patient's [id number], reportedly called EMS last night, after finding her unresponsive at home. In route, patient was reportedly given multiple doses of Narcan without effect. While in the emergency room, the patient was unable to protect her airway, and intubated by the ER physician. No reported seizure activity. Initial chest x-ray shows diffuse right-sided opacification correlating for aspiration pneumonia versus asymmetric pulmonary edema. Patient may have aspirated while unresponsive. Initial ventilator settings include assist control respiratory rate 16, tidal volume 400, FiO2 100%, and PEEP of 10. ABGs on these settings showed a pO2 of 128, pCO2 44, pH is 7.29. Respiratory rate was increased to 20. The patient is currently synchronous with mechanical ventilator. Peak inspiratory pressure 27 and static pressures 23. Postintubation chest x-ray shows endotracheal tube 4.4 cm above the marsha. There was an OG tube coursing below the diaphragm. She is currently sedated on propofol which is currently infusing at 25 mcg/kg/m. She minimally withdraws to painful stimuli. No gag reflex. Corneal reflex intact. Nonenhanced brain CT shows no acute abnormality. Urine drug screen was negative. Serum alcohol less than 10. Urinalysis not particularly concerning for UTI. CBC on arrival shows leukocytosis with a WBC count of 13.7, hemoglobin 12.7, hematocrit 36.4, platelets 125. BMP on arrival shows sodium 134, potassium 4.8, chloride 105, serum bicarbonate 20, BUN 26, creatinine 0.93, glucose 119. LFTs mildly elevated. Troponin 0.28. NT proBNP 1890. Lactic acid level I.3. Patient's blood pressure is hypertensive, may require titratable antihypertensives. She is currently afebrile. Sputum and blood cultures are pending. She will be monitored in the intensive care unit. Review of Systems ROS unobtainable: due to endotracheal tube Past Medical History Past Medical History: Eye Disorder, GERD/Reflux, GI Bleed, Liver Disease, Musculoskeletal Disorder, Neurologic Disorder, Seizure Disorder Additional Past Medical History / Comment(s): SEIZURE FROM ETOH, SHINGLE 6 YERAS AGO,MURMUR,TORN CATILAGE IN KNEES PER PTS MOTHER IN LAW-PT HAD LIVER FAILURE IN PAST, HEP C- NEVER TX (PAST HEROIN USE),AND BULEMIA.ANXIETY/ DEPRESSION, PAST SUICIDE ATTEMPS. "IN OCTOBER DRANK RUBBING ALCOHOL". FAMILT STATED PT TAKES SUBOXONE TO HELP HER NOT DRINK AND FOR PAIN IN LEGS/KNEES. Hep C Positive History of Any Multi-Drug Resistant Organisms: MRSA Date of last positivie culture/infection: 04/20/16 MDRO Source:: SPUTUM Past Surgical History: Hernia Repair, Uterine Ablation Additional Past Surgical History / Comment(s): NOVOSURE ENDOMETRIAL ABLATION. PT HAD "THROAT BANDING DONE" Past Anesthesia/Blood Transfusion Reactions: No Reported Reaction Additional Past Anesthesia/Blood Transfusion Reaction / Comment(s): Pt received previous blood transfusion at [facility] per past medical record. Past Psychological History: Anxiety, Bipolar, Depression, Panic Disorder Smoking Status: Unknown if ever smoked Past Alcohol Use History: Abuse, Daily Past Drug Use History: Cocaine, Heroin, IV Drug Use - Past Family History Father Family Medical History: No Reported History Mother Family Medical History: Cancer Additional Family Medical History / Comment(s): COLON AND LUNG CANCER- AT AGE 50 Medications and Allergies Home Medications Medication Instructions Recorded Confirmed Type Bumetanide [BUMEX] 0.5 mg PO DAILY 07/28/22 03/09/23 History Buprenorphine/Naloxone 8Mg/2Mg 0.5 film SL DAILY@1500 07/28/22 03/09/23 History [Suboxone 8-2Mg Film] Buprenorphine/Naloxone 8Mg/2Mg 1 film SL BID 07/28/22 03/09/23 History [Suboxone 8-2Mg Film] Mirtazapine [Remeron] 45 mg PO HS 07/28/22 03/09/23 History Propranolol LA [Inderal LA] 60 mg PO DAILY 07/28/22 03/09/23 History busPIRone HCL 15 mg PO BID 07/28/22 03/09/23 History chlorproMAZINE [Thorazine] 25 mg PO HS 07/28/22 03/09/23 History Baclofen [Lioresal] 10 mg PO Q6H 03/09/23 03/09/23 History Midodrine [ProAmatine] 5 mg PO TID 03/09/23 03/09/23 History tiZANidine HCL [Zanaflex] 8 mg PO Q6H PRN 03/09/23 03/09/23 History Aspirin EC [Ecotrin Low Dose] 81 mg PO DAILY #30 tab 03/12/23 Rx Atorvastatin [Lipitor] 10 mg PO DAILY #30 tab 03/12/23 Rx Metoprolol Succinate (ER) [Toprol 25 mg PO DAILY #30 tab 03/12/23 Rx XL] cloNIDine HCL [Catapres] 0.1 mg PO BID #60 tab 03/12/23 Rx Allergies Allergy/AdvReac Type Severity Reaction Status Date / Time Penicillins Allergy Severe Rash/Hives Verified 04/21/22 12:53 Physical Exam Vitals: Vital Signs Temp Pulse Resp BP Pulse Ox FiO2 06/25/23 01:48 80 06/25/23 01:29 56 L 20 168/104 100 06/25/23 01:00 56 L 24 172/111 100 06/25/23 00:10 55 L 22 178/116 100 06/25/23 00:00 53 L 18 155/108 99 06/24/23 23:59 100 06/24/23 23:58 100 06/24/23 23:43 87 L 06/24/23 23:00 176/114 06/24/23 22:00 52 L 26 H 171/112 100 06/24/23 21:30 52 L 24 166/108 100 06/24/23 21:07 26 H 06/24/23 21:00 56 L 26 H 156/99 100 06/24/23 20:41 55 L 22 164/107 100 06/24/23 20:25 98.6 F 57 L 14 170/112 100 Intake and Output 06/24/23 06/24/23 06/25/23 14:59 22:59 06:59 Intake Total 1.19 Balance 1.19 Intake: Intake, IV Titration 1.19 Amount propofoL 1,000 mg In 1.19 Empty Bag 1 bag @ 15 MCG/ KG/MIN 6.124 mls/hr IV . [id number] [facility] Rx#:[id number] Other: Weight 68.039 kg GENERAL EXAM: Unresponsive and sedated, 52-year-old white female, synchronous with the mechanical ventilator HEAD: Normocephalic and atraumatic EYES: Normal reaction of pupils, equal size. Nonicteric sclera NOSE: Clear with pink turbinates. THROAT: No erythema or exudates. NECK: No masses, no JVD. CHEST: No chest wall deformity. LUNGS: Equal air entry with diffuse rhonchi auscultated over the right lung. Intubated to the mechanical ventilator. CVS: S1 and S2 normal with soft systolic murmur grade 1/6, regular rhythm. No extra heart sounds ABDOMEN: Distended but soft abdomen, active bowel sounds, no guarding or rigidity. SPINE: No scoliosis or deformity SKIN: No rashes. Jaundice. CENTRAL NERVOUS SYSTEM: Currently only withdraws to painful stimuli. No focal deficits, tone is weak in all 4 extremities. EXTREMITIES: There is no peripheral edema, clubbing, or cyanosis. Peripheral pulses are intact. Results - Laboratory Findings CBC and BMP: 06/24/23 20:38 06/24/23 20:38 ABG ABG pH 7.29 (7.35-7.45) L 06/25/23 00:44 ABG pCO2 44 mmHg (35-45) 06/25/23 00:44 ABG pO2 128 mmHg (83-108) H 06/25/23 00:44 ABG O2 Saturation 98.2 % (94-97) H 06/25/23 00:44 PT/INR, D-dimer PT 11.0 sec (9.0-12.0) 06/24/23 20:38 INR 1.0 (<1.2) 06/24/23 20:38 Abnormal lab findings: Abnormal Labs 06/24/23 06/24/23 06/24/23 20:38 20:38 21:53 WBC 13.7 H Plt Count 125 L Neutrophils # 11.0 H Monocytes # 1.4 H ABG pH ABG pO2 ABG O2 Saturation VBG HCO3 Sodium 134 L Carbon Dioxide 20 L BUN 26 H Glucose 119 H POC Glucose (mg/dL) Total Bilirubin 2.5 H AST 41 H Alkaline Phosphatase 166 H Urine Protein 2+ H Urine Blood Small H Urine Mucus Rare H 06/24/23 06/25/23 06/25/23 22:52 00:44 01:44 WBC Plt Count Neutrophils # Monocytes # ABG pH 7.29 L ABG pO2 128 H ABG O2 Saturation 98.2 H VBG HCO3 22 L Sodium Carbon Dioxide BUN Glucose POC Glucose (mg/dL) 119 H Total Bilirubin AST Alkaline Phosphatase Urine Protein Urine Blood Urine Mucus - Diagnostic Findings Chest x-ray: image reviewed Assessment and Plan Assessment: Acute hypoxemic respiratory failure possibly secondary to aspiration pneumonia. Chest x-ray shows diffuse right-sided opacification correlating for aspiration pneumonia versus asymmetric pulmonary edema. Leukocytosis, possibly secondary to above Altered mental status, under investigation. Nonenhanced brain CT was negative for any acute intracranial abnormality. Urine drug screen was negative. Serum alcohol less than 10. Hypertensive urgency, will be started on Cleviprex infusion History of severe mitral regurgitation. Most recent 2-D echocardiogram done on 03/09/2023 shows severe left ventricular hypertrophy with a left ventricular ejection fraction of 65-70%. There was moderate to severe mitral regurgitation. History of alcoholism, serum alcohol less than 10 History of alcohol withdrawal seizures Elevated liver transaminases related to chronic alcohol liver disease Thrombocytopenia, secondary to above History of polysubstance abuse, currently on Suboxone History of hepatitis C History of GI bleeding with variceal banding History of depression with previous suicide attempts Plan: Patient's medications, labs, chest x-ray reviewed Continue on the mechanical ventilator Increase respiratory rate to 20 breaths per minute, and titrate FiO2 as tolerated Continue empiric antibiotics Give a dose of Lasix 40 mg once now Repeat chest x-ray in the morning Check procalcitonin level Sputum and blood cultures are pending Start clevidipine infusion for hypertension Urine toxicology screen negative Patient's is reportedly recently per her [id number]. Next of Kin is a daughter who we are currently unable to contact. Patient is currently a full code. We will continue to follow, and further recommendations are forthcoming. Patient will be monitored in the intensive care unit. I have personally seen and examined the patient, performed the documentation and the assessment and plan as written. Number of minutes spent on the visit:20 Time with Patient: Greater than 30
[2023-06-25 03:46] LABS: African American GFR (CKD) 81 (>60 ml/min/1.73 sqM); Anion Gap 9 mmol/L; Blood Urea Nitrogen 24 mg/dL (7-17); Calcium 9.3 mg/dL (8.4-10.2); Carbon Dioxide 19 mmol/L (22-30); Chloride 107 mmol/L (98-107); Glucose 130 mg/dL (74-99); Magnesium 1.9 mg/dL (1.6-2.3); Non-African American GFR(CKD) 70 (>60 ml/min/1.73 sqM); Sodium 135 mmol/L (137-145)
[2023-06-25] MEDS: IPRATROPIUM-ALBUTEROL 3 ML NEB INHALATION SCH ×6 (03:57→23:44)
[2023-06-25 06:10] LABS: ABG Base Excess -5.3 mmol/L; ABG HCO3 21 mmol/L (21-25); ABG Oxygen Saturation 98.9 % (94-97); ABG PCO2 44 mmHg (35-45); ABG PH 7.29 (7.35-7.45); ABG PO2 153 mmHg (83-108); ABG TCO2 23 mmol/L (19-24); Allen Test Performed? Yes
[2023-06-25 06:54] LABS: Glucose,Whole Blood 142 mg/dL (70-110)
--- NOTE | 2023-06-25 07:22 | XR ---
EXAMINATION TYPE: XR chest 1V portable DATE OF EXAM: 06/25/2023 5:34 AM COMPARISON: Chest radiographs from 06/24/2023 TECHNIQUE: XR chest 1V portable Portable AP radiograph of the chest. CLINICAL INDICATION:Female, 52 years old with history of Tube placement; FINDINGS: Lungs/Pleura: No pleural effusion or pneumothorax. Decreased patchy airspace opacities throughout the right lung. Left lung is clear. Pulmonary vascularity: Unremarkable. Heart/mediastinum: Cardiomediastinal silhouette is enlarged and stable. Musculoskeletal: No acute osseous pathology. Other findings: None Lines/Tubes: Endotracheal tube is in stable position. NG tube redemonstrated with sidehole in the distal esophagus . Recommend advancement of 9 cm. IMPRESSION: 1. Decreased right lung patchy airspace opacities from prior exam. 2. NG tube demonstrated with sidehole in the distal esophagus. Recommend advancement of 9 cm. 3. Stable endotracheal tube.
[2023-06-25] MEDS ORDERED: INSULIN REGULAR 100 UNIT/ML VIAL (IV) IV ONE (07:39)
[2023-06-25] MEDS ORDERED: DEXTROSE 50% SYRINGE 50 ML IVP STA (07:40)
[2023-06-25] MEDS ORDERED: ALBUTEROL NEBULIZED (CONC) 20 MG, SODIUM CHLORIDE 0.9% NEBULIZ 3 ML INHALATION ONE ×2 (07:45)
[2023-06-25 08:06] LABS: Glucose,Whole Blood 136 mg/dL (70-110)
[2023-06-25] MEDS: PANTOPRAZOLE 40 MG/10 ML VIAL IV SCH (08:11)
[2023-06-25] MEDS: CHLORHEXIDINE GLUCONATE 15 ML CUP MUCOUS MEM SCH ×2 (08:11→20:01)
[2023-06-25] MEDS ORDERED: VANCOMYCIN 1,000 MG in SODIUM CHLORIDE 0.9% 250 ML IVPB STA (08:27)
[2023-06-25] MEDS ORDERED: VANCOMYCIN IV PER PHARMACY 1 EACH MISC MISCELLANE PRN (08:27)
[2023-06-25 08:46] LABS: Glucose,Whole Blood 188 mg/dL (70-110)
[2023-06-25] MEDS: ENOXAPARIN 40 MG/0.4 ML SYRINGE SQ SCH (09:58)
--- NOTE | 2023-06-25 10:01 | XR ---
EXAMINATION TYPE: XR chest 1V confirm line [facility] DATE OF EXAM: 06/25/2023 9:50 AM COMPARISON: Chest radiographs from-02/08/2023 TECHNIQUE: XR chest 1V confirm line [facility] Frontal view of the chest. CLINICAL INDICATION:Female, 52 years old with history of confirm CVC; FINDINGS: Lungs/Pleura: Improved aeration of the right lung persistent right upper lung airspace opacities. The re is no evidence of pleural effusion, focal consolidation, or pneumothorax. Pulmonary vascularity: Unremarkable. Heart/mediastinum: Cardiomediastinal silhouette is unremarkable. Musculoskeletal: No acute osseous pathology. Other findings: None Lines/Tubes: * Endotracheal tube with distal tip 3.1 cm above the marsha. * Nasogastric tube with its distal tip and side-port projecting under the diaphragm. * Right internal jugular central venous catheter with distal tip at the superior vena cava/cavoatria l junction. No evidence of pneumothorax. IMPRESSION: 1. Improved aeration of the right lung with persistent right upper lung airspace opacities. 2. Stable support lines and tubes.
--- NOTE | 2023-06-25 10:39 | OP ---
OPERATIVE REPORT DATE OF SERVICE : PROCEDURE PERFORMED: Placement of a right internal jugular triple-lumen catheter. PREOPERATIVE DIAGNOSES: Acute hypoxic respiratory failure and possible anoxic brain injury. POSTOPERATIVE DIAGNOSIS: Acute hypoxic respiratory failure and possible anoxic brain injury. ANESTHESIA USED: 2 mL of 1% lidocaine. PROCEDURE IN DETAIL: The patient was placed in a Trendelenburg position, the area of the right cervical region was prepared in a sterile fashion and drapes were applied. The area anterior to the sternocleidomastoid muscle was locally anesthetized with lidocaine. Then, using the central approach, the right internal jugular vein was easily cannulated, and a guidewire was placed. The area around the guidewire was dilated. Then, the triple- lumen catheter was inserted over the guidewire, and the guidewire was removed. Good blood flow noted in the 3 different ports of the triple-lumen catheter. Line was secured using 3-0 silk sutures. Chest x-ray postoperatively showed adequate placement and no complications. ADDENDUM: This procedure was done on an emergent basis, no family members could reach for a consent over the phone. MMODL / IJN: [id number] /
[2023-06-25] MEDS: VANCOMYCIN 1,500 MG in SODIUM CHLORIDE 0.9% 500 ML 500 ML IVPB SCH ×2 (10:42→20:01)
[2023-06-25 11:39] LABS: Glucose,Whole Blood 82 mg/dL (70-110)
[2023-06-25 12:19] VITALS: RESP 22
[2023-06-25 15:04] LABS: Glucose,Whole Blood 118 mg/dL (70-110)
--- NOTE | 2023-06-25 15:08 | P.CNNES ---
History of Present Illness Consult date: 06/25/23 Requesting physician: Brittny Reyes Reason for Consult: Altered mental status History of Present Illness: Patient is a 52-year-old female came to the hospital by ambulance yesterday at 8:24 PM for altered mental status. Patient at present is intubated, comatose, not able to provide any history. Family members not present. EMS flow sheet not available in the chart. As per nursing report, patient's [id number] found her down. EMS was called, and Narcan was given with no improvement. Patient was brought to the hospital and was intubated in the ER. Patient never lost pulse. No known report of last known well. Family members not available to be contacted. Nursing staff also tried to contact the family. Patient's has recently as per nursing report. Vital signs on arrival blood pressure 170/112, pulse rate 57, temperature 98.6. Blood test shows WBC 13.7 hemoglobin 12.7, platelets 125, PT/PTT normal, sodium 134 potassium 4.8, BUN 26 creatinine 0.93, AST 41, ALT 25, troponin negative, UA negative, urine drug screen negative and blood alcohol level less than 10. ABG with pH of 7.29, pCO2 44, pO2 153 and saturation 98.9. Coronal virus PCR negative. Chest x-ray revealed right-sided predominant airspace opacities, correlate for pneumonia. Alternatively given cardiomegaly, correlate with serum BNP. CT head revealed no acute process. I personally reviewed CT head and agree with the findings. EKG with sinus bradycardia, possible left atrial enlargement. Chest x-ray repeat shows endotracheal tube with persistent infiltrate right greater than left. Patient had an EEG on 07/28/2022, which was abnormal due to presence of background slowing of moderate to severe degree, suggestive of generalized cerebral dysfunction as can be seen with toxic metabolic encephalopathy or due to diffuse structural brain abnormality. Clinical correlation is recommended. No definitive epileptiform activity was seen. Some triphasic waves were seen in the bifrontal region which raises concern for hepatic encephalopathy. Clinical correlation is recommended. Review of Systems ROS unobtainable: due to endotracheal tube, due to mental status Past Medical History Past Medical History: Eye Disorder, GERD/Reflux, GI Bleed, Liver Disease, Musculoskeletal Disorder, Neurologic Disorder, Seizure Disorder Additional Past Medical History / Comment(s): SEIZURE FROM ETOH, SHINGLE 6 YERAS AGO,MURMUR,TORN CATILAGE IN KNEES PER PTS MOTHER IN LAW-PT HAD LIVER FAILURE IN PAST, HEP C- NEVER TX (PAST HEROIN USE),AND BULEMIA.ANXIETY/ DEPRESSION, PAST SUICIDE ATTEMPS. "IN OCTOBER DRANK RUBBING ALCOHOL". FAMILT STATED PT TAKES SUBOXONE TO HELP HER NOT DRINK AND FOR PAIN IN LEGS/KNEES. Hep C Positive History of Any Multi-Drug Resistant Organisms: MRSA Date of last positivie culture/infection: 04/20/16 MDRO Source:: SPUTUM Past Surgical History: Hernia Repair, Uterine Ablation Additional Past Surgical History / Comment(s): NOVOSURE ENDOMETRIAL ABLATION. PT HAD "THROAT BANDING DONE" Past Anesthesia/Blood Transfusion Reactions: No Reported Reaction Additional Past Anesthesia/Blood Transfusion Reaction / Comment(s): Pt received previous blood transfusion at [facility] per past medical record. Past Psychological History: Anxiety, Bipolar, Depression, Panic Disorder Smoking Status: Unknown if ever smoked Past Alcohol Use History: Abuse, Daily Past Drug Use History: Cocaine, Heroin, IV Drug Use - Past Family History Father Family Medical History: No Reported History Mother Family Medical History: Cancer Additional Family Medical History / Comment(s): COLON AND LUNG CANCER- AT AGE 50 Medications and Allergies Home Medications Medication Instructions Recorded Confirmed Type Bumetanide [BUMEX] 0.5 mg PO DAILY 07/28/22 06/25/23 History Buprenorphine/Naloxone 8Mg/2Mg 0.5 film SL DAILY@1500 07/28/22 06/25/23 History [Suboxone 8-2Mg Film] Buprenorphine/Naloxone 8Mg/2Mg 1 film SL BID 07/28/22 06/25/23 History [Suboxone 8-2Mg Film] Mirtazapine [Remeron] 45 mg PO HS 07/28/22 06/25/23 History Propranolol LA [Inderal LA] 60 mg PO DAILY 07/28/22 06/25/23 History busPIRone HCL 15 mg PO BID 07/28/22 06/25/23 History chlorproMAZINE [Thorazine] 25 mg PO HS 07/28/22 06/25/23 History Baclofen [Lioresal] 10 mg PO Q6H 03/09/23 06/25/23 History Midodrine [ProAmatine] 5 mg PO TID 03/09/23 06/25/23 History Aspirin EC [Ecotrin Low Dose] 81 mg PO DAILY #30 tab 03/12/23 06/25/23 Rx Lactulose 20 gm PO BID 06/25/23 06/25/23 History Levothyroxine Sodium [Synthroid] 50 mcg PO DAILY 06/25/23 06/25/23 History Rifaximin [Xifaxan] 550 mg PO BID 06/25/23 06/25/23 History tiZANidine [Zanaflex] 8 mg PO Q6H PRN 06/25/23 06/25/23 History Allergies Allergy/AdvReac Type Severity Reaction Status Date / Time Penicillins Allergy Severe Rash/Hives Verified 06/25/23 11:05 Physical Examination - Vital Signs Vital Signs: Vital Signs Temp Pulse Resp BP Pulse Ox FiO2 06/25/23 11:10 54 L 06/25/23 11:00 50 06/25/23 10:00 54 L 23 131/87 100 06/25/23 09:00 55 L 22 131/87 99 06/25/23 08:00 99.0 F 53 L 22 131/87 98 50 06/25/23 07:32 58 L 06/25/23 07:20 56 L 06/25/23 07:16 50 06/25/23 07:00 53 L 16 131/87 96 06/25/23 06:12 50 06/25/23 06:00 53 L 21 131/87 99 06/25/23 05:00 98.5 F 54 L 17 131/87 99 60 06/25/23 04:06 56 L 06/25/23 04:00 98.2 F 55 L 23 131/87 99 60 06/25/23 03:59 60 06/25/23 03:00 56 L 18 97 06/25/23 02:18 98.6 F 56 L 19 170/101 93 L 80 06/25/23 01:48 80 06/25/23 01:29 56 L 20 168/104 100 06/25/23 01:00 56 L 24 172/111 100 06/25/23 00:10 55 L 22 178/116 100 06/25/23 00:00 53 L 18 155/108 99 06/24/23 23:59 100 06/24/23 23:58 100 06/24/23 23:43 87 L 09/03/23 23:00 176/114 06/24/23 22:00 52 L 26 H 171/112 100 06/24/23 21:30 52 L 24 166/108 100 06/24/23 21:07 26 H 06/24/23 21:00 56 L 26 H 156/99 100 06/24/23 20:41 55 L 22 164/107 100 06/24/23 20:25 98.6 F 57 L 14 170/112 100 Intake and Output 06/24/23 06/25/23 06/25/23 22:59 06:59 14:59 Intake Total 321.153 26.238 Output Total 1725 500 Balance -1403.847 -473.762 Intake: IV 250 Azithromycin 500 mg In 250 Sodium Chloride 0.9% 250 ml @ 250 mls/hr IVPB DAILY [facility] Rx#:[id number] Intake, IV Titration 71.153 26.238 Amount Clevidipine Butyrate 25 2.433 4.567 mg In Empty Bag 1 bag @ 1 MG/HR 2 mls/hr IV .Q24H [facility] Rx#:[id number] propofoL 1,000 mg In 68.72 21.671 Empty Bag 1 bag @ 15 MCG/ KG/MIN 6.124 mls/hr IV . [id number] [facility] Rx#:[id number] Output: Urine 1725 500 Other: Voiding Method Indwelling Catheter Indwelling Catheter Weight 68.039 kg 80.8 kg ABP, PAP, CO, CI - Last 8 Hours Arterial Blood Pressure 126/71 Arterial Blood Pressure 117/63 Arterial Blood Pressure 128/73 Arterial Blood Pressure 120/67 Arterial Blood Pressure 127/74 Arterial Blood Pressure 128/80 Arterial Blood Pressure 135/81 Patient is a middle aged female, who is laying in the bed, intubated, not on any sedation. No obvious seizure-like activity noted. Patient is comatose with GCS of 3. Her pupils are 4 mm, minimally reacting to light, but inconsistently. Oculocephalics are absent, corneals absent. Patient is not breathing over the ventilator. The ventilator is set at 22 per minute and she is breathing at 22. Patient does not have any gag or cough reflex. Patient is not responding to any deep painful stimuli. Reflexes are absent, plantars are flat. Abdomen is slightly protuberant but appears nontender. Abdomen is soft. Tone is equal bilaterally. Chest is clear. S1 and S2 audible. Results - Laboratory Findings CBC and BMP: 06/25/23 02:50 06/25/23 10:00 Abnormal Lab Findings: Abnormal Labs 06/24/23 06/24/23 06/24/23 20:38 20:38 21:53 WBC 13.7 H Plt Count 125 L Neutrophils # 11.0 H Monocytes # 1.4 H ABG pH ABG pO2 ABG O2 Saturation VBG HCO3 Sodium 134 L Potassium Carbon Dioxide 20 L BUN 26 H Glucose 119 H POC Glucose (mg/dL) Total Bilirubin 2.5 H AST 41 H Alkaline Phosphatase 166 H Procalcitonin Urine Protein 2+ H Urine Blood Small H Urine Mucus Rare H 06/24/23 06/25/23 06/25/23 22:52 00:44 01:44 WBC Plt Count Neutrophils # Monocytes # ABG pH 7.29 L ABG pO2 128 H ABG O2 Saturation 98.2 H VBG HCO3 22 L Sodium Potassium Carbon Dioxide BUN Glucose POC Glucose (mg/dL) 119 H Total Bilirubin AST Alkaline Phosphatase Procalcitonin Urine Protein Urine Blood Urine Mucus 06/25/23 06/25/23 06/25/23 02:50 02:50 02:50 WBC 13.0 H Plt Count 139 L Neutrophils # 10.7 H Monocytes # ABG pH ABG pO2 ABG O2 Saturation VBG HCO3 Sodium 135 L Potassium 6.0 H Carbon Dioxide 19 L BUN 24 H Glucose 130 H POC Glucose (mg/dL) Total Bilirubin AST Alkaline Phosphatase Procalcitonin 0.57 H Urine Protein Urine Blood Urine Mucus 06/25/23 06/25/23 06/25/23 06:06 06:51 08:05 WBC Plt Count Neutrophils # Monocytes # ABG pH 7.29 L ABG pO2 153 H ABG O2 Saturation 98.9 H VBG HCO3 Sodium Potassium Carbon Dioxide BUN Glucose POC Glucose (mg/dL) 142 H 136 H Total Bilirubin AST Alkaline Phosphatase Procalcitonin Urine Protein Urine Blood Urine Mucus 06/25/23 08:45 WBC Plt Count Neutrophils # Monocytes # ABG pH ABG pO2 ABG O2 Saturation VBG HCO3 Sodium Potassium Carbon Dioxide BUN Glucose POC Glucose (mg/dL) 188 H Total Bilirubin AST Alkaline Phosphatase Procalcitonin Urine Protein Urine Blood Urine Mucus Assessment and Plan Assessment: * Altered mental status, comatose states with GCS of 3. No history of cardiac arrest. Exact cause of comatose state uncertain. Rule out hepatic encephalopathy * History of hepatitis C, hepatic cirrhosis * History of polysubstance abuse * History of liver disease Plan: * Stat ammonia level, rule out hepatic encephalopathy * EEG evaluate for encephalopathy, rule out status, rule out hepatic encep halopathy * We will try to contact family members to get collateral history. * Neurology will follow clinically.
[2023-06-25] MEDS: LACTULOSE 20 GM/30 ML CUP PO SCH ×2 (16:46→20:52)
[2023-06-25 17:34] LABS: Glucose,Whole Blood 105 mg/dL (70-110)
[2023-06-25] MEDS: RIFAXIMIN 550 MG TABLET PO SCH (20:01)
[2023-06-25 23:14] LABS: Glucose,Whole Blood 143 mg/dL (70-110)
[2023-06-25] MEDS ORDERED: AZITHROMYCIN 500 MG in SODIUM CHLORIDE 0.9% 250 ML IVPB SCH (23:30)
[2023-06-26] MEDS: CLEVIDIPINE BUTYRATE 25 MG in EMPTY BAG 1 BAG IV SCH (02:52)
--- NOTE | 2023-06-26 03:28 | P.HPIM ---
History of Present Illness H&P Date: 06/25/23 Chief Complaint: Altered mental status 52-year-old female who presents emergency department via EMS for altered mental status. It was reported by EMS that the patient was found to be altered by family however there was no further history obtained at this time. The patient was minimally responsive however was able to maintain her own airway on arrival. Is reported the patient was being bagged by EMS. No further history could be obtained at this time by EMS nor by the patient. Patient is admitted with acute hypoxic respiratory failure secondary to aspiration pneumonia, leukocytosis, altered mental status possible anoxic brain injury, hypertensive urgency requiring clevidipine infusion, she also has severe mitral regurgitation, history of alcoholism, hepatitis C, elevated liver enzymes with chronic alcohol liver disease, patient is known to have history of polys ubstance abuse, on Suboxone, patient will remain on mechanical ventilation Review of Systems ROS unobtainable: due to mental status Past Medical History Past Medical History: Eye Disorder, GERD/Reflux, GI Bleed, Liver Disease, Musculoskeletal Disorder, Neurologic Disorder, Seizure Disorder Additional Past Medical History / Comment(s): SEIZURE FROM ETOH, SHINGLE 6 YERAS AGO,MURMUR,TORN CATILAGE IN KNEES PER PTS MOTHER IN LAW-PT HAD LIVER FAILURE IN PAST, HEP C- NEVER TX (PAST HEROIN USE),AND BULEMIA.ANXIETY/ DEPRESSION, PAST SUICIDE ATTEMPS. "IN OCTOBER DRANK RUBBING ALCOHOL". FAMILT STATED PT TAKES SUBOXONE TO HELP HER NOT DRINK AND FOR PAIN IN LEGS/KNEES. Hep C Positive History of Any Multi-Drug Resistant Organisms: MRSA Date of last positivie culture/infection: 04/20/16 MDRO Source:: SPUTUM Past Surgical History: Hernia Repair, Uterine Ablation Additional Past Surgical History / Comment(s): NOVOSURE ENDOMETRIAL ABLATION. PT HAD "THROAT BANDING DONE" Past Anesthesia/Blood Transfusion Reactions: No Reported Reaction Additional Past Anesthesia/Blood Transfusion Reaction / Comment(s): Pt received previous blood transfusion at [facility] per past medical record. Past Psychological History: Anxiety, Bipolar, Depression, Panic Disorder Smoking Status: Unknown if ever smoked Past Alcohol Use History: Abuse, Daily Past Drug Use History: Cocaine, Heroin, IV Drug Use - Past Family History Father Family Medical History: No Reported History Mother Family Medical History: Cancer Additional Family Medical History / Comment(s): COLON AND LUNG CANCER- AT AGE 50 Medications and Allergies Home Medications Medication Instructions Recorded Confirmed Type Bumetanide [BUMEX] 0.5 mg PO DAILY 07/28/22 06/25/23 History Buprenorphine/Naloxone 8Mg/2Mg 0.5 film SL DAILY@1500 07/28/22 06/25/23 History [Suboxone 8-2Mg Film] Buprenorphine/Naloxone 8Mg/2Mg 1 film SL BID 07/28/22 06/25/23 History [Suboxone 8-2Mg Film] Mirtazapine [Remeron] 45 mg PO HS 07/28/22 06/25/23 History Propranolol LA [Inderal LA] 60 mg PO DAILY 07/28/22 06/25/23 History busPIRone HCL 15 mg PO BID 07/28/22 06/25/23 History chlorproMAZINE [Thorazine] 25 mg PO HS 07/28/22 06/25/23 History Baclofen [Lioresal] 10 mg PO Q6H 03/09/23 06/25/23 History Midodrine [ProAmatine] 5 mg PO TID 03/09/23 06/25/23 History Aspirin EC [Ecotrin Low Dose] 81 mg PO DAILY #30 tab 03/12/23 06/25/23 Rx Lactulose 20 gm PO BID 06/25/23 06/25/23 History Levothyroxine Sodium [Synthroid] 50 mcg PO DAILY 06/25/23 06/25/23 History Rifaximin [Xifaxan] 550 mg PO BID 06/25/23 06/25/23 History tiZANidine [Zanaflex] 8 mg PO Q6H PRN 06/25/23 06/25/23 History Allergies Allergy/AdvReac Type Severity Reaction Status Date / Time Penicillins Allergy Severe Rash/Hives Verified 06/25/23 11:05 Physical Exam Vitals: Vital Signs Temp Pulse Resp BP Pulse Ox FiO2 06/25/23 14:00 55 L 22 131/87 100 06/25/23 13:00 56 L 22 131/87 99 06/25/23 12:00 98.4 F 55 L 22 131/87 99 40 06/25/23 11:20 56 L 06/25/23 11:10 54 L 06/25/23 11:00 54 L 22 131/87 99 50 06/25/23 10:00 54 L 23 131/87 100 06/25/23 09:00 55 L 22 131/87 99 06/25/23 08:00 99.0 F 53 L 22 131/87 98 50 06/25/23 07:32 58 L 06/25/23 07:20 56 L 06/25/23 07:16 50 06/25/23 07:00 53 L 16 131/87 96 06/25/23 06:12 50 06/25/23 06:00 53 L 21 131/87 99 06/25/23 05:00 98.5 F 54 L 17 131/87 99 60 06/25/23 04:06 56 L 06/25/23 04:00 98.2 F 55 L 23 131/87 99 60 06/25/23 03:59 60 06/25/23 03:00 56 L 18 97 06/25/23 02:18 98.6 F 56 L 19 170/101 93 L 80 06/25/23 01:48 80 06/25/23 01:29 56 L 20 168/104 100 06/25/23 01:00 56 L 24 172/111 100 06/25/23 00:10 55 L 22 178/116 100 06/25/23 00:00 53 L 18 155/108 99 06/24/23 23:59 100 06/24/23 23:58 100 06/24/23 23:43 87 L 06/24/23 23:00 176/114 06/24/23 22:00 52 L 26 H 171/112 100 06/24/23 21:30 52 L 24 166/108 100 06/24/23 21:07 26 H 06/24/23 21:00 56 L 26 H 156/99 100 06/24/23 20:41 55 L 22 164/107 100 06/24/23 20:25 98.6 F 57 L 14 170/112 100 Intake and Output 06/24/23 06/25/23 06/25/23 22:59 06:59 14:59 Intake Total 321.153 526.238 Output Total 1725 910 Balance -1403.847 -383.762 Intake: IV 250 Azithromycin 500 mg In 250 Sodium Chloride 0.9% 250 ml @ 250 mls/hr IVPB DAILY [facility] Rx#:[id number] Intake, IV Titration 71.153 526.238 Amount Clevidipine Butyrate 25 2.433 4.567 mg In Empty Bag 1 bag @ 1 MG/HR 2 mls/hr IV .Q24H [facility] Rx#:[id number] Vancomycin 1,500 mg In 500 Sodium Chloride 0.9% 500 ml 500 ml @ 167 mls/hr IVPB Q12H [facility] Rx#: [id number] propofoL 1,000 mg In 68.72 21.671 Empty Bag 1 bag @ 15 MCG/ KG/MIN 6.124 mls/hr IV . [id number] [facility] Rx#:[id number] Output: Urine 1725 910 Other: Voiding Method Indwelling Catheter Indwelling Catheter Weight 68.039 kg 80.8 kg ABP, PAP, CO, CI - Last 8 Hours Arterial Blood Pressure 123/69 Arterial Blood Pressure 103/57 Arterial Blood Pressure 103/57 Arterial Blood Pressure 118/68 Arterial Blood Pressure 126/71 Arterial Blood Pressure 117/63 Arterial Blood Pressure 128/73 Arterial Blood Pressure 120/67 GENERAL EXAM: Unresponsive and sedated, 52-year-old white female, synchronous with the mechanical ventilator HEAD: Normocephalic and atraumatic EYES: Normal reaction of pupils, equal size. Nonicteric sclera NOSE: Clear with pink turbinates. THROAT: No erythema or exudates. NECK: No masses, no JVD. CHEST: No chest wall deformity. LUNGS: Equal air entry with diffuse rhonchi auscultated over the right lung. Intubated to the mechanical ventilator. CVS: S1 and S2 normal with soft systolic murmur grade 1/6, regular rhythm. No extra heart sounds ABDOMEN: Distended but soft abdomen, active bowel sounds, no guarding or rigidity. SPINE: No scoliosis or deformity SKIN: No rashes. Jaundice. CENTRAL NERVOUS SYSTEM: Currently only withdraws to painful stimuli. No focal deficits, tone is weak in all 4 extremities. EXTREMITIES: There is no peripheral edema, clubbing, or cyanosis. Peripheral pulses are intact. Results CBC & Chem 7: 06/25/23 02:50 06/25/23 10:00 Labs: Abnormal Lab Results - Last 24 Hours (Table) 06/24/23 06/24/23 06/24/23 Range/Units 20:38 20:38 21:53 WBC 13.7 H (3.8-10.6) k/uL Plt Count 125 L (150-450) k/uL Neutrophils # 11.0 H (1.3-7.7) k/uL Monocytes # 1.4 H (0-1.0) k/uL ABG pH (7.35-7.45) ABG pO2 (83-108) mmHg ABG O2 Saturation (94-97) % VBG HCO3 (24-28) mmol/L Sodium 134 L (137-145) mmol/L Potassium (3.5-5.1) mmol/L Carbon Dioxide 20 L (22-30) mmol/L BUN 26 H (7-17) mg/dL Glucose 119 H (74-99) mg/dL POC Glucose (mg/dL) (70-110) mg/dL Total Bilirubin 2.5 H (0.2-1.3) mg/dL AST 41 H (14-36) U/L Alkaline Phosphatase 166 H (38-126) U/L Procalcitonin (0.02-0.09) ng/mL Urine Protein 2+ H (Negative) Urine Blood Small H (Negative) Urine Mucus Rare H (None) /hpf 06/24/23 06/25/23 06/25/23 Range/Units 22:52 00:44 01:44 WBC (3.8-10.6) k/uL Plt Count (150-450) k/uL Neutrophils # (1.3-7.7) k/uL Monocytes # (0-1.0) k/uL ABG pH 7.29 L (7.35-7.45) ABG pO2 128 H (83-108) mmHg ABG O2 Saturation 98.2 H (94-97) % VBG HCO3 22 L (24-28) mmol/L Sodium (137-145) mmol/L Potassium (3.5-5.1) mmol/L Carbon Dioxide (22-30) mmol/L BUN (7-17) mg/dL Glucose (74-99) mg/dL POC Glucose (mg/dL) 119 H (70-110) mg/dL Total Bilirubin (0.2-1.3) mg/dL AST (14-36) U/L Alkaline Phosphatase (38-126) U/L Procalcitonin (0.02-0.09) ng/mL Urine Protein (Negative) Urine Blood (Negative) Urine Mucus (None) /hpf 06/25/23 06/25/23 06/25/23 Range/Units 02:50 02:50 02:50 WBC 13.0 H (3.8-10.6) k/uL Plt Count 139 L (150-450) k/uL Neutrophils # 10.7 H (1.3-7.7) k/uL Monocytes # (0-1.0) k/uL ABG pH (7.35-7.45) ABG pO2 (83-108) mmHg ABG O2 Saturation (94-97) % VBG HCO3 (24-28) mmol/L Sodium 135 L (137-145) mmol/L Potassium 6.0 H (3.5-5.1) mmol/L Carbon Dioxide 19 L (22-30) mmol/L BUN 24 H (7-17) mg/dL Glucose 130 H (74-99) mg/dL POC Glucose (mg/dL) (70-110) mg/dL Total Bilirubin (0.2-1.3) mg/dL AST (14-36) U/L Alkaline Phosphatase (38-126) U/L Procalcitonin 0.57 H (0.02-0.09) ng/mL Urine Protein (Negative) Urine Blood (Negative) Urine Mucus (None) /hpf 06/25/23 06/25/23 06/25/23 Range/Units 06:06 06:51 08:05 WBC (3.8-10.6) k/uL Plt Count (150-450) k/uL Neutrophils # (1.3-7.7) k/uL Monocytes # (0-1.0) k/uL ABG pH 7.29 L (7.35-7.45) ABG pO2 153 H (83-108) mmHg ABG O2 Saturation 98.9 H (94-97) % VBG HCO3 (24-28) mmol/L Sodium (137-145) mmol/L Potassium (3.5-5.1) mmol/L Carbon Dioxide (22-30) mmol/L BUN (7-17) mg/dL Glucose (74-99) mg/dL POC Glucose (mg/dL) 142 H 136 H (70-110) mg/dL Total Bilirubin (0.2-1.3) mg/dL AST (14-36) U/L Alkaline Phosphatase (38-126) U/L Procalcitonin (0.02-0.09) ng/mL Urine Protein (Negative) Urine Blood (Negative) Urine Mucus (None) /hpf 06/25/23 Range/Units 08:45 WBC (3.8-10.6) k/uL Plt Count (150-450) k/uL Neutrophils # (1.3-7.7) k/uL Monocytes # (0-1.0) k/uL ABG pH (7.35-7.45) ABG pO2 (83-108) mmHg ABG O2 Saturation (94-97) % VBG HCO3 (24-28) mmol/L Sodium (137-145) mmol/L Potassium (3.5-5.1) mmol/L Carbon Dioxide (22-30) mmol/L BUN (7-17) mg/dL Glucose (74-99) mg/dL POC Glucose (mg/dL) 188 H (70-110) mg/dL Total Bilirubin (0.2-1.3) mg/dL AST (14-36) U/L Alkaline Phosphatase (38-126) U/L Procalcitonin (0.02-0.09) ng/mL Urine Protein (Negative) Urine Blood (Negative) Urine Mucus (None) /hpf Thrombosis Risk Factor Assmnt - Choose All That Apply Each Factor Represents 1 point: Sepsis (< 1month) Thrombosis Risk Factor Assessment Total Risk Factor Score: 1 Thrombosis Risk Factor Assessment Level: Low Risk Assessment and Plan Assessment: 1. Acute hypoxemic respiratory failure possibly secondary to aspiration pneumonia -- Chest x-ray shows diffuse right-sided opacification correlating for aspiration pneumonia versus asymmetric pulmonary edema. - will continue with IV antibiotics per Disk Recordist recs 2. Altered mental status; etiology unclear; --Nonenhanced brain CT was negative for any acute intracranial abnormality. Urine drug screen was negative. Serum alcohol less than 10. -- Neurology consulted Hypertensive urgency, will be started on Cleviprex infusion 3. History of severe mitral regurgitation; -- Most recent 2-D echocardiogram done on 03/09/2023 shows severe left ventricular hypertrophy with a left ventricular ejection fraction of 65-70%; moderate to severe mitral regurgitation. 4. History of alcoholism, serum alcohol less than 10 -- patient has history of alcohol withdrawal seizures -- History of GI bleeding with variceal banding 5. Elevated liver transaminases; likely related to chronic alcohol liver disease -- patient has history of hepatitis C 6. Thrombocytopenia, secondary to above 7. History of polysubstance abuse, currently on Suboxone
[2023-06-26] MEDS: IPRATROPIUM-ALBUTEROL 3 ML NEB INHALATION SCH ×5 (04:22→20:17)
[2023-06-26 05:04] LABS: African American GFR (CKD) 55 (>60 ml/min/1.73 sqM); Anion Gap 8 mmol/L; Blood Urea Nitrogen 33 mg/dL (7-17); Carbon Dioxide 20 mmol/L (22-30); Chloride 112 mmol/L (98-107); Glucose 111 mg/dL (74-99); Non-African American GFR(CKD) 48 (>60 ml/min/1.73 sqM); Potassium 4.8 mmol/L (3.5-5.1); Sodium 140 mmol/L (137-145)
[2023-06-26 05:55] LABS: Basophils % (A) 0 %; Eosinophils % (A) 0 %; HGB 11.5 gm/dL (11.4-16.0); Lymphocytes # (A) 1.5 k/uL (1.0-4.8); Lymphocytes % (A) 23 %; MCH 32.4 pg (25.0-35.0); MCHC 33.9 g/dL (31.0-37.0); MCV 95.8 fL (80.0-100.0); Mean Platelet Volume 8.1; Monocytes # (A) 0.8 k/uL (0-1.0); Monocytes % (A) 12 %; Neutrophils # (A) 3.8 k/uL (1.3-7.7); Neutrophils % (A) 60 %; Platelet Count 147 k/uL (150-450); Poikilocytosis Slight; RBC 3.55 m/uL (3.80-5.40); RDW 15.3 % (11.5-15.5); WBC 6.4 k/uL (3.8-10.6)
[2023-06-26 06:16] LABS: Glucose,Whole Blood 108 mg/dL (70-110)
[2023-06-26 06:23] LABS: ABG Base Excess -4.4 mmol/L; ABG HCO3 22 mmol/L (21-25); ABG PCO2 44 mmHg (35-45); ABG PH 7.31 (7.35-7.45); ABG PO2 116 mmHg (83-108); ABG TCO2 23 mmol/L (19-24); Allen Test Performed? Yes
[2023-06-26 06:30] LABS: ABG Oxygen Saturation 98.2 % (94-97)
[2023-06-26] MEDS ORDERED: PHENYTOIN SODIUM INJ 1,500 MG in SODIUM CHLORIDE 0.9% 100 ML IVPB STA (07:42)
[2023-06-26] MEDS ORDERED: LORazepam 2 MG/ML INJ IV STA (07:44)
[2023-06-26] MEDS ORDERED: PHENYTOIN SODIUM INJ 1,200 MG in SODIUM CHLORIDE 0.9% 100 ML IVPB STA (07:46)
[2023-06-26] MEDS: CHLORHEXIDINE GLUCONATE 15 ML CUP MUCOUS MEM SCH ×2 (08:02→20:05)
[2023-06-26] MEDS: RIFAXIMIN 550 MG TABLET PO SCH ×2 (08:02→20:05)
[2023-06-26] MEDS: PANTOPRAZOLE 40 MG/10 ML VIAL IV SCH (08:02)
[2023-06-26] MEDS: ENOXAPARIN 40 MG/0.4 ML SYRINGE SQ SCH (08:02)
[2023-06-26] MEDS: LACTULOSE 20 GM/30 ML CUP PO SCH ×2 (08:02→15:01)
[2023-06-26] MEDS: VANCOMYCIN 1,500 MG in SODIUM CHLORIDE 0.9% 500 ML 500 ML IVPB SCH (08:17)
--- NOTE | 2023-06-26 08:32 | XR ---
EXAMINATION TYPE: XR chest 1V portable DATE OF EXAM: 06/26/2023 COMPARISON: 06/25/2023 HISTORY: Tube placement TECHNIQUE: Single frontal view of the chest is obtained. FINDINGS: ET tube, NG tube and central line stable in position. Post arthropathy of the shoulders wi th hypertrophic degenerative changes spine. Remote rib fracture on the left noted. Bilateral infiltrates and tiny effusion. No sizable pneumothorax. Heart size stable. IMPRESSION: Postoperative change with increasing bilateral infiltrate and small effusion.
[2023-06-26] MEDS ORDERED: LEVOTHYROXINE IVP 100 MCG/5 ML VIAL IV SCH (09:30)
[2023-06-26] MEDS ORDERED: SODIUM CHLORIDE 0.9% 1,000 ML IV ONE ×2 (09:40→11:57)
[2023-06-26] MEDS ORDERED: SODIUM CHLORIDE 0.9% 1,000 ML IV SCH (09:45)
[2023-06-26 10:52] LABS: Appearance,Urine Clear (Clear); Bilirubin,Urine Negative (Negative); Blood,Urine Small (Negative); Color,Urine Yellow; Glucose,Urine (UA) Negative (Negative); Ketones,Urine Negative (Negative); Leukocyte Esterase,Urine Trace (Negative); Mucus,Urine Rare /hpf; Nitrite,Urine Negative (Negative); Protein,Urine Trace (Negative); RBC,Urine 10 /hpf (0-5); Specific Gravity,Urine 1.016 (1.001-1.035); Squamous Epithelial Cell,Urine 1 /hpf (0-4); WBC,Urine 8 /hpf (0-5)
[2023-06-26 11:36] LABS: Glucose,Whole Blood 119 mg/dL (70-110)
--- NOTE | 2023-06-26 11:43 | P.PN ---
Subjective Progress Note Date: 06/26/23 Principal diagnosis: Cardiac arrest. I am seeing this patient in consultation today 06/25/2023 after the patient presented with altered mental status and required intubation for airway protection. Patient is a 52-year-old white female with past medical history significant for polysubstance abuse on suboxone, alcoholism, previous alcohol withdrawal seizures, liver disease, hepatitis C, previous suicide attempts, GI bleeding, GERD, anxiety and depression. Patient is currently intubated and unable to provide information. Patient's fnejlb-so-ukn, reportedly called EMS last night, after finding her unresponsive at home. In route, patient was reportedly given multiple doses of Narcan without effect. While in the emergency room, the patient was unable to protect her airway, and intubated by the ER physician. No reported seizure activity. Initial chest x-ray shows diffus e right-sided opacification correlating for aspiration pneumonia versus asymmetric pulmonary edema. Patient may have aspirated while unresponsive. Initial ventilator settings include assist control respiratory rate 16, tidal volume 400, FiO2 100%, and PEEP of 10. ABGs on these settings showed a pO2 of 128, pCO2 44, pH is 7.29. Respiratory rate was increased to 20. The patient is currently synchronous with mechanical ventilator. Peak inspiratory pressure 27 and static pressures 23. Postintubation chest x-ray shows endotracheal tube 4.4 cm above the marsha. There was an OG tube coursing below the diaphragm. She is currently sedated on propofol which is currently infusing at 25 mcg/kg/m. She minimally withdraws to painful stimuli. No gag reflex. Corneal reflex intact. Nonenhanced brain CT shows no acute abnormality. Urine drug screen was negative. Serum alcohol less than 10. Urinalysis not particularly concerning for UTI. CBC on arrival shows leukocytosis with a WBC count of 13.7, hemoglobin 12.7, hematocrit 36.4, platelets 125. BMP on arrival shows sodium 134, potassiu m 4.8, chloride 105, serum bicarbonate 20, BUN 26, creatinine 0.93, glucose 119. LFTs mildly elevated. Troponin 0.28. NT proBNP 1890. Lactic acid level I.3. Patient's blood pressure is hypertensive, may require titratable antihypertensives. She is currently afebrile. Sputum and blood cultures are pending. She will be monitored in the intensive care unit. Progress note dated 06/24/2023. 52-year-old female admitted on June 24, and intubated on the same day, for poor respiratory status, aspiration pneumonia, and mental status changes. Currently, the patient is seen today in room 251. She remains on the volume assist control, rate 22, tidal volume 400, FiO2 40%, and PEEP of 5. Blood gases show pO2 116, pCO2 44, and a pH is 7.31. The patient's on saline at keep vein open, and vital AF at 10 mL an hour. She was thought to have a right lower lobe pneumonia, based on her chest x-ray. She's currently on Rocephin and vancomycin. White count 6.4, hemoglobin 11.5, hematocrit 34, and platelet count 147,000. Sodium 140, potassium 4.8, chlorides 112, CO2 20, BUN 33, creatinine 1.30. TSH is normal. Chest x-ray shows bilateral infiltrates. Brain CT is pending. Objective - Vital Signs Vital signs: Vital Signs Temp 98.5 F 06/26/23 08:00 Pulse 49 L 06/26/23 11:03 Resp 22 06/26/23 10:00 BP 83/47 06/26/23 10:00 Pulse Ox 96 06/26/23 10:00 FiO2 35 06/26/23 10:50 Intake & Output 06/25/23 06/26/23 06/26/23 18:59 06:59 18:59 Intake Total 656.648 357 1604 Output Total 1195 515 290 Balance -538.230 406 1072 Weight 79.3 kg 79.4 kg Intake: IV 60 453 92 A line 33 12 KVO 60 220 80 Vancomycin 1,500 mg In 100 Sodium Chloride 0.9% 500 ml 500 ml @ 167 mls/hr IVPB Q12H [facility] Rx#: [id number] cefTRIAXone 2 gm In 100 Sodium Chloride 0.9% 50 ml @ 100 mls/hr IVPB Q24H [facility] Rx#:[id number] Intake, IV Titration 628.372 6086 Amount Clevidipine Butyrate 25 4.567 mg In Empty Bag 1 bag @ 1 MG/HR 2 mls/hr IV .Q24H [facility] Rx#:[id number] Sodium Chloride 0.9% 1, 75 000 ml @ 75 mls/hr IV . [id number] [facility] Rx#:[id number] Sodium Chloride 0.9% 1, 1000 000 ml @ 999 mls/hr IV . Q1H1M [facility] Rx#:[id number] Vancomycin 1,500 mg In 500 Sodium Chloride 0.9% 500 ml 500 ml @ 167 mls/hr IVPB Q12H [facility] Rx#: [id number] Vancomycin 1,500 mg In 500 Sodium Chloride 0.9% 500 ml 500 ml @ 167 mls/hr IVPB Q16H [facility] Rx#: [id number] propofoL 1,000 mg In 21.671 Empty Bag 1 bag @ 15 MCG/ KG/MIN 6.124 mls/hr IV . [id number] [facility] Rx#:[id number] Tube Feeding 40 110 40 Other 30 90 30 Output: Gastric Drainage 50 Urine 1145 515 290 Other: Voiding Method Indwelling Catheter Indwelling Catheter Indwelling Catheter ABP, PAP, CO, CI - Last Documented Arterial Blood Pressure 84/51 - Exam No acute distress, unresponsive, with an orally placed endotracheal tube and NG tube. HEENT examination is grossly unremarkable. Neck supple. Full range of motion. No adenopathy thyromegaly or neck vein distention. Cardiovascular examination reveals regular rhythm rate. S1-S2 normal. No S3 or S4. No discernible murmur noted. Heart rate 50 bpm. Lungs reveal mild to moderate scattered rhonchi. No wheezes or crackles. Breath sounds equal. Saturations are 96% Abdomen soft, without bowel sounds. No masses. Extremities are intact. No cyanosis clubbing or edema. Skin is without rash or lesion. Neurologic examination reveals a poorly responsive/unresponsive patient, without a gag, and very sluggish pupillary reflexes. - Labs CBC & Chem 7: 06/26/23 04:30 06/26/23 04:30 Labs: Abnormal Lab Results - Last 24 Hours (Table) 06/25/23 06/25/23 06/25/23 Range/Units 15:00 15:03 23:12 RBC (3.80-5.40) m/uL Plt Count (150-450) k/uL ABG pH (7.35-7.45) ABG pO2 (83-108) mmHg ABG O2 Saturation (94-97) % Chloride (98-107) mmol/L Carbon Dioxide (22-30) mmol/L BUN (7-17) mg/dL Creatinine (0.52-1.04) mg/dL Glucose (74-99) mg/dL POC Glucose (mg/dL) 118 H 143 H (70-110) mg/dL Ammonia 45 H (<30) umol/L Urine Protein (Negative) Urine Blood (Negative) Ur Leukocyte Esterase (Negative) Urine RBC (0-5) /hpf Urine WBC (0-5) /hpf Urine Mucus (None) /hpf 06/26/23 06/26/23 06/26/23 Range/Units 04:30 04:30 06:17 RBC 3.55 L (3.80-5.40) m/uL Plt Count 147 L (150-450) k/uL ABG pH 7.31 L (7.35-7.45) ABG pO2 116 H (83-108) mmHg ABG O2 Saturation 98.2 H (94-97) % Chloride 112 H (98-107) mmol/L Carbon Dioxide 20 L (22-30) mmol/L BUN 33 H (7-17) mg/dL Creatinine 1.30 H (0.52-1.04) mg/dL Glucose 111 H (74-99) mg/dL POC Glucose (mg/dL) (70-110) mg/dL Ammonia (<30) umol/L Urine Protein (Negative) Urine Blood (Negative) Ur Leukocyte Esterase (Negative) Urine RBC (0-5) /hpf Urine WBC (0-5) /hpf Urine Mucus (None) /hpf 06/26/23 Range/Units 09:30 RBC (3.80-5.40) m/uL Plt Count (150-450) k/uL ABG pH (7.35-7.45) ABG pO2 (83-108) mmHg ABG O2 Saturation (94-97) % Chloride (98-107) mmol/L Carbon Dioxide (22-30) mmol/L BUN (7-17) mg/dL Creatinine (0.52-1.04) mg/dL Glucose (74-99) mg/dL POC Glucose (mg/dL) (70-110) mg/dL Ammonia (<30) umol/L Urine Protein Trace H (Negative) Urine Blood Small H (Negative) Ur Leukocyte Esterase Trace H (Negative) Urine RBC 10 H (0-5) /hpf Urine WBC 8 H (0-5) /hpf Urine Mucus Rare H (None) /hpf Microbiology - Last 24 Hours (Table) 06/25/23 00:04 Gram Stain - Preliminary Sputum Assessment and Plan Assessment: Acute hypoxemic respiratory failure, secondary to aspiration pneumonia. Status post intubation and mechanical ventilation, 06/24/2023, for hypoxemic respiratory failure. Acute mental status changes, of unclear etiology. Hypertensive urgency, resolved. Severe mitral regurgitation. History of alcoholism. History of alcohol withdrawal seizures. Alcoholic liver disease. Alcoholic induced thrombocytopenia. History of polysubstance abuse. History of hepatitis C. History of GI bleeding with variceal banding. History of depression with previous suicide attempts. Plan: Plan dated 06/26/2023. The patient's FiO2 was dropped down to 35%. We will add Synthroid, at 50 g IV push, daily. Her oral Synthroid dose was 50 g. The IVs changed from 0.9 KVO, up to 75 mL an hour. A repeat brain scan has been ordered. Dietary will see the patient, for the proper rate of tube feedings. The patient remains on Rocephin and vancomycin. Prognosis at this point, appears to be relatively poor, given her poor neurologic evaluation. Additional recommendations and suggestions are forthcoming. Labs, x-rays, and medications are all reviewed. Time with Patient: Greater than 30
--- NOTE | 2023-06-26 12:00 | CT ---
EXAMINATION TYPE: CT brain wo con DATE OF EXAM: 06/26/2023 COMPARISON: 06/24/2023 HISTORY: AMS CT DLP: 1100.4 mGycm Automated exposure control for dose reduction was used. FINDINGS: Ventricular systems patient's age. Faint low-attenuation posterior white matter may be in the basis o f ischemia. There is no midline shift or mass effect. No acute hemorrhage. There is artifact at the l evel isabel. Calvarium intact. Craniocervical junction is maintained. Sella turcica and normal. Orbits are symmetr ic IMPRESSION: FAINT LOW ATTENUATION IN THE POSTERIOR WHITE MATTER. RECOMMEND MRI FOLLOW-UP. EARLY ISCHEMIC CHANGE N OT EXCLUDED.. A Ransom level critical message alert has been initiated for Luis Davis DO~[id number] via the [employer] Critical Results System on 06/26/2023 11:58 AM. This message alert has been sent to Missy Davis DO~[id number] via the preferences provided by the clinician for the receipt of Radiology Critic al Findings. Message ID [id number].
[2023-06-26 12:55] VITALS: BMI 26.6
--- NOTE | 2023-06-26 14:45 | P.PN ---
Subjective Progress Note Date: 06/26/23 52-year-old female who presents emergency department via EMS for altered mental status. It was reported by EMS that the patient was found to be altered by family however there was no further history obtained at this time. The patient was minimally responsive however was able to maintain her own airway on arrival. Is reported the patient was being bagged by EMS. No further history could be obtained at this time by EMS nor by the patient. Patient is admitted with acute hypoxic respiratory failure secondary to aspiration pneumonia, leukocytosis, altered mental status possible anoxic brain injury, hypertensive urgency requiring clevidipine infusion, she also has severe mitral regurgitation, history of alcoholism, hepatitis C, elevated liver enzymes with chronic alcohol liver disease, patient is known to have history of polysubstance abuse, on Suboxone, patient will remain on mechanical ventilation 06/26. Patient seen and examined. Continues to be on ventilator. Hemoglobin 11.5, WBC 6.4, platelet count 147, sodium 140, potassium 4.8, BUN 33, creatinine 1.3 REVIEW OF SYSTEMS: Currently intubated PHYSICAL EXAMINATION: GENERAL: The patient is intubated HEENT: Pupils are round and equally reacting to light. EOMI. No scleral icterus. No conjunctival pallor. Normocephalic, atraumatic. No pharyngeal erythema. No thyromegaly. CARDIOVASCULAR: S1 and S2 present. No murmurs, rubs, or gallops. PULMONARY: Diminished breath sounds at the bases ABDOMEN: Soft, nontender, nondistended, normoactive bowel sounds. No palpable organomegaly. MUSCULOSKELETAL: No joint swelling or deformity. EXTREMITIES: No cyanosis, clubbing, or pedal edema. NEUROLOGICAL: Intubated and sedated SKIN: No rashes. Assessment and plan Acute hypoxemic respiratory failure possibly aspiration pneumonia. Leukocytosis Acute metabolic encephalopathy Hypertensive urgency History of severe mitral regurgitation History of alcoholism History of alcohol withdrawal seizures Elevated liver transaminases related to chronic alcohol liver disease Thrombocytopenia History of polysubstance abuse History of hepatitis C History of GI bleeding with variceal banding History of depression with previous suicide attempts Monitor vital signs Monitor CBC Monitor CMP Continue vent management per ICU Start IV Synthroid Start patient on tube feeding EEG ordered Follow-up blood cultures Continue IV Rocephin and vancomycin Neurology following Critical care following Labs and medication were reviewed.. Continue same treatment. Continue with symptomatic treatment. Resume home medication. Monitor labs and vitals. DVT and GI prophylaxis. Further recommendations as per clinical course of the patie nt Dictation was produced using [employer] dictation software. please excuse any grammatical, word or spelling errors. Objective - Vital Signs Vital signs: Vital Signs Temp 97.6 F 06/26/23 04:00 Pulse 51 L 06/26/23 07:00 Resp 22 06/26/23 07:00 BP 106/65 06/26/23 07:00 Pulse Ox 95 06/26/23 07:00 FiO2 35 06/26/23 09:19 Intake & Output 06/25/23 06/26/23 06/26/23 18:59 06:59 18:59 Intake Total 656.238 653 33 Output Total 1195 515 200 Balance -538.762 138 -167 Weight 79.3 kg Intake: IV 60 453 23 A line 33 3 KVO 60 220 20 Vancomycin 1,500 mg In 100 Sodium Chloride 0.9% 500 ml 500 ml @ 167 mls/hr IVPB Q12H [facility] Rx#: [id number] cefTRIAXone 2 gm In 100 Sodium Chloride 0.9% 50 ml @ 100 mls/hr IVPB Q24H [facility] Rx#:[id number] Intake, IV Titration 526.238 Amount Clevidipine Butyrate 25 4.567 mg In Empty Bag 1 bag @ 1 MG/HR 2 mls/hr IV .Q24H [facility] Rx#:[id number] Vancomycin 1,500 mg In 500 Sodium Chloride 0.9% 500 ml 500 ml @ 167 mls/hr IVPB Q12H [facility] Rx#: [id number] propofoL 1,000 mg In 21.671 Empty Bag 1 bag @ 15 MCG/ KG/MIN 6.124 mls/hr IV . [id number] [facility] Rx#:[id number] Tube Feeding 40 110 10 Other 30 90 Output: Gastric Drainage 50 Urine 1145 515 200 Other: Voiding Method Indwelling Catheter Indwelling Catheter ABP, PAP, CO, CI - Last Documented Arterial Blood Pressure 94/57 - Labs CBC & Chem 7: 06/26/23 04:30 06/26/23 04:30 Labs: Abnormal Lab Results - Last 24 Hours (Table) 06/25/23 06/25/23 06/25/23 Range/Units 02:50 15:00 15:03 RBC (3.80-5.40) m/uL Plt Count (150-450) k/uL ABG pH (7.35-7.45) ABG pO2 (83-108) mmHg ABG O2 Saturation (94-97) % Chloride (98-107) mmol/L Carbon Dioxide (22-30) mmol/L BUN (7-17) mg/dL Creatinine (0.52-1.04) mg/dL Glucose (74-99) mg/dL POC Glucose (mg/dL) 118 H (70-110) mg/dL Ammonia 45 H (<30) umol/L Procalcitonin 0.57 H (0.02-0.09) ng/mL 06/25/23 06/26/23 06/26/23 Range/Units 23:12 04:30 04:30 RBC 3.55 L (3.80-5.40) m/uL Plt Count 147 L (150-450) k/uL ABG pH (7.35-7.45) ABG pO2 (83-108) mmHg ABG O2 Saturation (94-97) % Chloride 112 H (98-107) mmol/L Carbon Dioxide 20 L (22-30) mmol/L BUN 33 H (7-17) mg/dL Creatinine 1.30 H (0.52-1.04) mg/dL Glucose 111 H (74-99) mg/dL POC Glucose (mg/dL) 143 H (70-110) mg/dL Ammonia (<30) umol/L Procalcitonin (0.02-0.09) ng/mL 06/26/23 Range/Units 06:17 RBC (3.80-5.40) m/uL Plt Count (150-450) k/uL ABG pH 7.31 L (7.35-7.45) ABG pO2 116 H (83-108) mmHg ABG O2 Saturation 98.2 H (94-97) % Chloride (98-107) mmol/L Carbon Dioxide (22-30) mmol/L BUN (7-17) mg/dL Creatinine (0.52-1.04) mg/dL Glucose (74-99) mg/dL POC Glucose (mg/dL) (70-110) mg/dL Ammonia (<30) umol/L Procalcitonin (0.02-0.09) ng/mL
[2023-06-26] MEDS ORDERED: NOREPINEPHRINE 8 MG in SODIUM CHLORIDE 0.9% 250 ML IV SCH (15:00)
[2023-06-26] MEDS ORDERED: CLINDAMYCIN 600 MG in DEXTROSE 5% IN WATER 50 ML IVPB SCH ×2 (16:00)
[2023-06-26 16:29] VITALS: PULSE 50
--- NOTE | 2023-06-26 18:06 | P.PN ---
Subjective Progress Note Date: 06/26/23 Patient was seen for a follow-up. Patient continues to be intubated. She is not on any sedation. Patient continues to be comatose with GCS of 3. Patient currently on Levophed 0.05 mcg/kg per minute. This is because she developed hypotension. No seizure type activity noticed. I spoke to patient's mo ther-in-law, who provided recent history. She states the patient has been acting funny for last few days. She was believing that her was there who has from [place] a while ago. She was not making sense. She was saying he was there and she made sandwiches for him. On the day of arrival to the hospital, patient to the shower, her makeup on was rambling, not making sense, walking all day with her walker. 1 minute she was okay, other minutes she was not okay, not eating. She saw her in this condition and about 15 minutes later, she saw patient laying on the floor "out of it". She has mentioned to the [id number], that she did not want to live anymore, and said that she found papers for "DO NOT RESUSCITATE". Patient's ilfjwu-dj-uff states that she would not let anyone handle her medications. She believes that patient does take tizanidine and baclofen. Patient's [id number] could not find a bottle of present 18, she overdosed on it. She also mentioned that patient has been hospitalized 3 times for similar scenario and was found to have "brain swelling". Objective - Vital Signs Vital signs: Vital Signs Temp 98.2 F 06/26/23 12:00 Pulse 49 L 06/26/23 15:00 Resp 22 06/26/23 15:00 BP 80/46 06/26/23 15:00 Pulse Ox 95 06/26/23 15:00 FiO2 35 06/26/23 14:30 Intake & Output 06/25/23 06/26/23 06/26/23 18:59 06:59 18:59 Intake Total 656.814 036 9970.427 Output Total 1195 515 560 Balance -538.475 387 2668.427 Weight 79.3 kg 79.4 kg Intake: IV 60 453 147 A line 33 27 KVO 60 220 120 Vancomycin 1,500 mg In 100 Sodium Chloride 0.9% 500 ml 500 ml @ 167 mls/hr IVPB Q12H [facility] Rx#: [id number] cefTRIAXone 2 gm In 100 Sodium Chloride 0.9% 50 ml @ 100 mls/hr IVPB Q24H [facility] Rx#:[id number] Intake, IV Titration 327.488 1122.427 Amount Clevidipine Butyrate 25 4.567 mg In Empty Bag 1 bag @ 1 MG/HR 2 mls/hr IV .Q24H [facility] Rx#:[id number] Norepinephrine 8 mg In 6.427 Sodium Chloride 0.9% 250 ml @ 0.03 MCG/KG/MIN 4. 609 mls/hr IV .Q24H [facility] Rx#:[id number] Sodium Chloride 0.9% 1, 450 000 ml @ 75 mls/hr IV . [id number] [facility] Rx#:[id number] Sodium Chloride 0.9% 1, 1000 000 ml @ 999 mls/hr IV . Q1H1M [facility] Rx#:[id number] Sodium Chloride 0.9% 1, 1000 000 ml @ 999 mls/hr IV . Q1H1M [facility] Rx#:[id number] Vancomycin 1,500 mg In 500 Sodium Chloride 0.9% 500 ml 500 ml @ 167 mls/hr IVPB Q12H [facility] Rx#: [id number] Vancomycin 1,500 mg In 500 Sodium Chloride 0.9% 500 ml 500 ml @ 167 mls/hr IVPB Q16H [facility] Rx#: [id number] propofoL 1,000 mg In 21.671 Empty Bag 1 bag @ 15 MCG/ KG/MIN 6.124 mls/hr IV . [id number] [facility] Rx#:[id number] Tube Feeding 40 110 140 Other 30 90 60 Output: Gastric Drainage 50 Urine 1145 515 560 Other: Voiding Method Indwelling Catheter Indwelling Catheter Indwelling Catheter ABP, PAP, CO, CI - Last Documented Arterial Blood Pressure 80/41 - Exam Patient is a middle aged female, who is laying in the bed, intubated, not on any sedation. No obvious seizure-like activity noted. Patient is comatose with GCS of 3. Her pupils are 4 mm, nonreactive today. Oculocephalics are absent, corneals absent. Patient is not breathing over the ventilator. The ventilator is set at 22 per minute and she is breathing at 22. Patient does not have any gag reflex, although she does have a mild cough reflex. Patient is not responding to any deep painful stimuli. Reflexes are absent, plantars are flat. Abdomen is slightly protuberant but appears nontender. Abdomen is soft. Tone is equal bilaterally. Chest is clear. S1 and S2 audible. - Labs CBC & Chem 7: 06/26/23 04:30 06/26/23 04:30 Labs: Abnormal Lab Results - Last 24 Hours (Table) 06/25/23 06/26/23 06/26/23 Range/Units 23:12 04:30 04:30 RBC 3.55 L (3.80-5.40) m/uL Plt Count 147 L (150-450) k/uL ABG pH (7.35-7.45) ABG pO2 (83-108) mmHg ABG O2 Saturation (94-97) % Chloride 112 H (98-107) mmol/L Carbon Dioxide 20 L (22-30) mmol/L BUN 33 H (7-17) mg/dL Creatinine 1.30 H (0.52-1.04) mg/dL Glucose 111 H (74-99) mg/dL POC Glucose (mg/dL) 143 H (70-110) mg/dL Ammonia (<30) umol/L Urine Protein (Negative) Urine Blood (Negative) Ur Leukocyte Esterase (Negative) Urine RBC (0-5) /hpf Urine WBC (0-5) /hpf Urine Mucus (None) /hpf 06/26/23 06/26/23 06/26/23 Range/Units 05:00 06:17 09:30 RBC (3.80-5.40) m/uL Plt Count (150-450) k/uL ABG pH 7.31 L (7.35-7.45) ABG pO2 116 H (83-108) mmHg ABG O2 Saturation 98.2 H (94-97) % Chloride (98-107) mmol/L Carbon Dioxide (22-30) mmol/L BUN (7-17) mg/dL Creatinine (0.52-1.04) mg/dL Glucose (74-99) mg/dL POC Glucose (mg/dL) (70-110) mg/dL Ammonia 83 H (<30) umol/L Urine Protein Trace H (Negative) Urine Blood Small H (Negative) Ur Leukocyte Esterase Trace H (Negative) Urine RBC 10 H (0-5) /hpf Urine WBC 8 H (0-5) /hpf Urine Mucus Rare H (None) /hpf 06/26/23 Range/Units 11:34 RBC (3.80-5.40) m/uL Plt Count (150-450) k/uL ABG pH (7.35-7.45) ABG pO2 (83-108) mmHg ABG O2 Saturation (94-97) % Chloride (98-107) mmol/L Carbon Dioxide (22-30) mmol/L BUN (7-17) mg/dL Creatinine (0.52-1.04) mg/dL Glucose (74-99) mg/dL POC Glucose (mg/dL) 119 H (70-110) mg/dL Ammonia (<30) umol/L Urine Protein (Negative) Urine Blood (Negative) Ur Leukocyte Esterase (Negative) Urine RBC (0-5) /hpf Urine WBC (0-5) /hpf Urine Mucus (None) /hpf Microbiology - Last 24 Hours (Table) 06/25/23 03:31 Blood Culture - Preliminary Blood 06/25/23 01:28 Blood Culture - Preliminary Blood 06/25/23 00:04 Gram Stain - Preliminary Sputum Assessment and Plan Assessment: * Altered mental status, comatose states with GCS of 3. No history of cardiac arrest. Suspect drug overdose. Possibilities include baclofen and/or tizanidine. * Elevated ammonia, probable some component of hepatic encephalopathy * Abnormal EEG with evidence of burst suppressed pattern, probably due to drug overdose. * Ventilator-dependent respiratory failure on mechanical ventilation. * Aspiration pneumonia * Acute kidney injury * Hypotension, currently on Levophed. * History of hepatitis C, hepatic cirrhosis * History of polysubstance abuse * History of alcoholism * History of depression and suicide attempts in the past. Plan: * Stat ammonia level was 45 yesterday. Patient was started on lactulose. She still has not had any bowel movement. Repeat ammonia level is even higher 83 as of flag signaler today. Suspect some component of hepatic encephalopathy. IM and critical care to address hepatic encephalopathy. * Discussed with patient's nurse to call poison control Center. Suspect overdose on tizanidine and/or baclofen. * EEG was performed today, which as per verbal report from Dr. Mcmanus showed burst suppressed pattern. Recommended continuous EEG monitoring. Official report pending. Suggest transfer to higher level of care for continuous EEG monitoring. * Patient was given Dilantin 1.2 g loading dose for abnormal EEG. Check Dilantin level. Because of liver disease, we will switch to Keppra 750 mg twice a day. * Discussed with patient's eylpbr-qh-gao in detail, as mentioned above. * DVT prophylaxis: Patient on Lovenox 40 g of daily. * Patient currently on azithromycin, ceftriaxone, clindamycin for aspiration pneumonia. ID on board. * Other medical management as per IM and critical care. * Patient critically sick at this time. Time with Patient: Greater than 30
[2023-06-26 18:12] LABS: Glucose,Whole Blood 131 mg/dL (70-110)
--- NOTE | 2023-06-26 18:17 | P.EN ---
was called by neureology regarding patient needing continuous EEG monitoring for that patient transfer to another facility. multiple facilities were contacted. [facility] accepted the patient to ICU
[2023-06-26 20:04] VITALS: BP 101/58; TEMP 98.3
[2023-06-26] MEDS ORDERED: levETIRAcetam IV 500 MG/5 ML VIAL IVP SCH (21:00)
--- NOTE | 2023-06-26 21:31 | EEG ---
ELECTROENCEPHALOGRAM REPORT ELECTROENCEPHALOGRAM (EEG) REPORT: TECHNIQUE: A routine 18-channel EEG was performed with video using the 10/20 international electrode placement system. HISTORY: Altered mental status, ventilator-dependent respiratory failure, and aspiration pneumonia. The patient was found unresponsive by family for an unknown length of time. The patient potentially took too much baclofen. CURRENT MEDICATIONS: 1. Lovenox. 2. Protonix. 3. Ceftriaxone. 4. Vancomycin. STUDY DURATION: 74 minutes. FINDINGS: BACKGROUND: A sustained posterior dominant rhythm was not seen. ACTIVATION: 1. Hyperventilation: Not performed. 2. Photic stimulation: Not performed. SLEEP: Distinctive sleep stages not seen. ABNORMALITIES: 1. This EEG demonstrated a burst-suppression pattern. The burst consisted of either single or multiple high-amplitude generalized triphasic waves followed by delta- range slowing by periods of suppression lasting up to 2 seconds. 2. Triphasic waves in their own right are not epileptiform in nature. However, this pattern can also be considered consistent with generalized periodic discharges (GPDs) of triphasic morphology with contributing suppression. 3. Triphasic waveforms can be seen in the setting of an anoxic or hypoxic encephalopathy. IMPRESSION: Abnormal EEG. No seizures were recorded. This EEG demonstrated a burst-suppression pattern with frequent triphasic waves, (GPDs). These findings indicate severe diffuse cerebral dysfunction as may be seen in anoxic or hypoxic encephalopathy. These findings were called to the consulting neurologist at 12 p.m. on 06/26/2023. MMYURIDIAL / LESN: [id number] /
[2023-06-27] MEDS ORDERED: VANCOMYCIN 1,500 MG in SODIUM CHLORIDE 0.9% 500 ML 500 ML IVPB SCH ×2
--- NOTE | 2023-06-27 14:04 | P.DS ---
Providers Date of admission: 06/25/23 00:45 Expected date of discharge: 06/26/23 Attending physician: Krista Reed MD Consults: 06/25/23 00:45 Consult Physician Stat Consulting Provider: Luis Davis Consult Reason/Comments: VDRF, AMS, aspiration pneumonia versus ARDS Do you want consulting provider notified?: Already Contacted 06/25/23 08:29 Consult Physician Routine Consulting Provider: Diogenes Davis Consult Reason/Comments: AMS Do you want consulting provider notified?: Yes 06/26/23 09:25 Consult Physician Urgent Consulting Provider: Beto Aguilar Consult Reason/Comments: Sepsis, aspiration pneumonia Do you want consulting provider notified?: Yes Primary care physician: Stated None Hospital Course: Discharge diagnoses; Acute hypoxemic respiratory failure possibly aspiration pneumonia. Seizures Leukocytosis Acute metabolic encephalopathy Hypertensive urgency History of severe mitral regurgitation History of alcoholism History of alcohol withdrawal seizures Elevated liver transaminases related to chronic alcohol liver disease Thrombocytopenia History of polysubstance abuse History of hepatitis C History of GI bleeding with variceal banding History of depression with previous suicide attempts Hospital course; 52-year-old female who presents emergency department via EMS for altered mental status. It was reported by EMS that the patient was found to be altered by family however there was no further history obtained at this time. The patient was minimally responsive however was able to maintain her own airway on arrival. Is reported the patient was being bagged by EMS. No further history could be obtained at this time by EMS nor by the patient. Patient is admitted with acute hypoxic respiratory failure secondary to aspiration pneumonia, leukocytosis, altered mental status possible anoxic brain injury, hypertensive urgency requiring clevidipine infusion, she also has severe mitral regurgitation, history of alcoholism, hepatitis C, elevated liver enzymes with chronic alcohol liver disease, patient is known to have history of polysubstance abuse, on Suboxone, patient will remain on mechanical ventilation 06/26. Patient seen and examined. Continues to be on ventilator. Hemoglobin 11.5, WBC 6.4, platelet count 147, sodium 140, potassium 4.8, BUN 33, creatinine 1.3. EEG was performed , which as per verbal report from Dr. Mcmanus showed burst suppressed pattern. Recommended continuous EEG monitoring. Suggest transfer to higher level of care for continuous EEG monitoring. was called by neureology regarding patient needing continuous EEG monitoring for that patient transfer to another facility. multiple facilities were contacted. [facility] accepted the patient to ICU Patient being transferred to [facility] ICU PHYSICAL EXAMINATION: GENERAL: The patient is intubated HEENT: Pupils are round and equally reacting to light. EOMI. No scleral icterus. No conjunctival pallor. Normocephalic, atraumatic. No pharyngeal erythema. No thyromegaly. CARDIOVASCULAR: S1 and S2 present. No murmurs, rubs, or gallops. PULMONARY: Diminished breath sounds at the bases ABDOMEN: Soft, nontender, nondistended, normoactive bowel sounds. No palpable organomegaly. MUSCULOSKELETAL: No joint swelling or deformity. EXTREMITIES: No cyanosis, clubbing, or pedal edema. NEUROLOGICAL: Intubated and sedated SKIN: No rashes. Dictation was produced using [employer] dictation software. please excuse any grammatical, word or spelling errors. Patient Condition at Discharge: Serious Plan - Discharge Summary Discharge Rx Participant: Yes New Discharge Prescriptions: Continue Buprenorphine/Naloxone 8Mg/2Mg [Suboxone 8-2Mg Film] 1 film SL BID Propranolol LA [Inderal LA] 60 mg PO DAILY chlorproMAZINE [Thorazine] 25 mg PO HS Midodrine [ProAmatine] 5 mg PO TID Aspirin EC [Ecotrin Low Dose] 81 mg PO DAILY #30 tab Levothyroxine Sodium [Synthroid] 50 mcg PO DAILY Bumetanide [BUMEX] 0.5 mg PO DAILY Buprenorphine/Naloxone 8Mg/2Mg [Suboxone 8-2Mg Film] 0.5 film SL DAILY@1500 Mirtazapine [Remeron] 45 mg PO HS busPIRone HCL 15 mg PO BID Baclofen [Lioresal] 10 mg PO Q6H tiZANidine [Zanaflex] 8 mg PO Q6H PRN PRN Reason: Muscle Spasm Lactulose 20 gm PO BID Rifaximin [Xifaxan] 550 mg PO BID Discharge Medication List Bumetanide [BUMEX] 0.5 mg PO DAILY 07/28/22 [History] Buprenorphine/Naloxone 8Mg/2Mg [Suboxone 8-2Mg Film] 0.5 film SL DAILY@1500 07/28/22 [History] Buprenorphine/Naloxone 8Mg/2Mg [Suboxone 8-2Mg Film] 1 film SL BID 07/28/22 [History] Mirtazapine [Remeron] 45 mg PO HS 07/28/22 [History] Propranolol LA [Inderal LA] 60 mg PO DAILY 07/28/22 [History] busPIRone HCL 15 mg PO BID 07/28/22 [History] chlorproMAZINE [Thorazine] 25 mg PO HS 07/28/22 [History] Baclofen [Lioresal] 10 mg PO Q6H 03/09/23 [History] Midodrine [ProAmatine] 5 mg PO TID 03/09/23 [History] Aspirin EC [Ecotrin Low Dose] 81 mg PO DAILY #30 tab 03/12/23 [Rx] Lactulose 20 gm PO BID 06/25/23 [History] Levothyroxine Sodium [Synthroid] 50 mcg PO DAILY 06/25/23 [History] Rifaximin [Xifaxan] 550 mg PO BID 06/25/23 [History] tiZANidine [Zanaflex] 8 mg PO Q6H PRN 06/25/23 [History] Follow up Appointment(s)/Referral(s): None,Stated [Primary Care Provider] - 1-2 days Discharge Disposition: OTHER INSTITUTION NOT DEFINED
== END 2023-06-26 20:45 | disposition short-term general hospital (02) | DRG 208 ==
LOC: EC 20:24 → 2SICU 06-25 00:45
PROVIDERS: ADMIT Internal Medicine; ATTEND Internal Medicine
PROC: 0BH17EZ Insertion of Endotracheal Airway into Trachea, Via Natural or Artificial Opening (ICD-10-PCS; principal; 2023-06-24)
PROC: 5A1945Z Respiratory Ventilation, 24-96 Consecutive Hours (ICD-10-PCS; principal; 2023-06-24)
PROC: 4A133B1 Monitoring of Arterial Pressure, Peripheral, Percutaneous Approach (ICD-10-PCS; 2023-06-25)
PROC: 4A133J1 Monitoring of Arterial Pulse, Peripheral, Percutaneous Approach (ICD-10-PCS; 2023-06-25)
PROC: 03HY32Z Insertion of Monitoring Device into Upper Artery, Percutaneous Approach (ICD-10-PCS; 2023-06-25)
PROC: 02HV33Z Insertion of Infusion Device into Superior Vena Cava, Percutaneous Approach (ICD-10-PCS; 2023-06-25)
PROC: 0DH67UZ Insertion of Feeding Device into Stomach, Via Natural or Artificial Opening (ICD-10-PCS; 2023-06-25)
PROC: 3E0G76Z Introduction of Nutritional Substance into Upper GI, Via Natural or Artificial Opening (ICD-10-PCS; 2023-06-25)
PROC: 3E043XZ Introduction of Vasopressor into Central Vein, Percutaneous Approach (ICD-10-PCS; 2023-06-26)
DX: J96.01 Acute respiratory failure with hypoxia (principal); J69.0 Pneumonitis due to inhalation of food and vomit; R40.20 Unspecified coma; G93.41 Metabolic encephalopathy; I46.9 Cardiac arrest, cause unspecified; N17.9 Acute kidney failure, unspecified; D69.59 Other secondary thrombocytopenia; F31.9 Bipolar disorder, unspecified; T42.8X1A Poisoning by antiparkinsonism drugs and other central muscle-tone depressants, accidental (unintentional), initial encounter; F41.0 Panic disorder [episodic paroxysmal anxiety]; F11.11 Opioid abuse, in remission; F14.11 Cocaine abuse, in remission; G40.909 Epilepsy, unspecified, not intractable, without status epilepticus; I16.0 Hypertensive urgency; I34.0 Nonrheumatic mitral (valve) insufficiency; K70.9 Alcoholic liver disease, unspecified; K70.30 Alcoholic cirrhosis of liver without ascites; K76.82 Hepatic encephalopathy; Z20.822 Contact with and (suspected) exposure to COVID-19; Z91.51 Personal history of suicidal behavior; Z28.21 Immunization not carried out because of patient refusal; K21.9 Gastro-esophageal reflux disease without esophagitis; Z86.14 Personal history of Methicillin resistant Staphylococcus aureus infection; Z71.3 Dietary counseling and surveillance; Z86.19 Personal history of other infectious and parasitic diseases; Z88.0 Allergy status to penicillin; Z79.890 Hormone replacement therapy; Z79.82 Long term (current) use of aspirin; Z79.899 Other long term (current) drug therapy
CPT/HCPCS: 36415; 36600; 70450; 71045; 80048; 80053; 80143; 80185; 80306; 80320; 81001; 82140; 82803; 82805; 83605; 83690; 83735; 83880; 84132; 84145; 84443; 84484; 85025; 85610; 85730; 87040; 87070; 87205; 87635; 93005; 94002; 94003; 94640; 95813

== ENCOUNTER 2023-07-30 10:21 | Emergency (ER) | payer MEDICARE, OTHER ==
[2023-07-30] MEDS ORDERED: SODIUM CHLORIDE 0.9% 1,000 ML IV STA (10:33)
--- NOTE | 2023-07-30 10:37 | ED ---
General Adult HPI - General Stated complaint: Weakness Time Seen by Provider: 07/30/23 10:23 Source: patient Mode of arrival: EMS Limitations: no limitations - History of Present Illness Initial comments: 52-year-old female with past medical history significant for polysubstance abuse and recent admission on 06/25/23 due to altered mental status and aspiration pneumonia. Patient presenting to the ED due to to nausea. Patient states for the past 3-4 days has been experiencing nausea. No associated symptoms with this. Denies abdominal pain. Denies urinary symptoms. Denies changes in bowel habits. No chest pain or shortness of breath. Denies fatigue. States and route was given medication by EMS however cannot recall the name of this. Currently, reports nausea improves and is feeling hungry. Patient reports that she is overall feeling well now. No other complaints. - Related Data Home Medications Medication Instructions Recorded Confirmed Bumetanide [BUMEX] 0.5 mg PO DAILY 07/28/22 06/25/23 Buprenorphine/Naloxone 8Mg/2Mg 0.5 film SL DAILY@1500 07/28/22 06/25/23 [Suboxone 8-2Mg Film] Buprenorphine/Naloxone 8Mg/2Mg 1 film SL BID 07/28/22 06/25/23 [Suboxone 8-2Mg Film] Mirtazapine [Remeron] 45 mg PO HS 07/28/22 06/25/23 Propranolol LA [Inderal LA] 60 mg PO DAILY 07/28/22 06/25/23 busPIRone HCL 15 mg PO BID 07/28/22 06/25/23 chlorproMAZINE [Thorazine] 25 mg PO HS 07/28/22 06/25/23 Baclofen [Lioresal] 10 mg PO Q6H 03/09/23 06/25/23 Midodrine [ProAmatine] 5 mg PO TID 03/09/23 06/25/23 Lactulose 20 gm PO BID 06/25/23 06/25/23 Levothyroxine Sodium [Synthroid] 50 mcg PO DAILY 06/25/23 06/25/23 Rifaximin [Xifaxan] 550 mg PO BID 06/25/23 06/25/23 tiZANidine [Zanaflex] 8 mg PO Q6H PRN 06/25/23 06/25/23 Previous Rx's Medication Instructions Recorded Aspirin EC [Ecotrin Low Dose] 81 mg PO DAILY #30 tab 03/12/23 Allergies Allergy/AdvReac Type Severity Reaction Status Date / Time Penicillins Allergy Severe Rash/Hives Verified 07/30/23 10:37 Review of Systems ROS Statement: Those systems with pertinent positive or pertinent negative responses have been documented in the HPI. ROS Other: All systems not noted in ROS Statement are negative. 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 "IN OCTOBER DRANK RUBBING ALCOHOL". FAMILT STATED PT TAKES SUBOXONE TO HELP HER NOT DRINK AND FOR PAIN IN LEGS/KNEES. Hep C Positive History of Any Multi-Drug Resistant Organisms: MRSA Date of last positivie culture/infection: 04/20/16 MDRO Source:: SPUTUM Past Surgical History: Hernia Repair, Uterine Ablation Additional Past Surgical History / Comment(s): NOVOSURE ENDOMETRIAL ABLATION. PT HAD "THROAT BANDING DONE" Past Anesthesia/Blood Transfusion Reactions: No Reported Reaction Additional Past Anesthesia/Blood Transfusion Reaction / Comment(s): Pt received previous blood transfusion at [facility] per past medical record. Past Psychological History: Anxiety, Bipolar, Depression, Panic Disorder Smoking Status: Current every day smoker Past Alcohol Use History: Abuse, Daily Past Drug Use History: Cocaine, Heroin, IV Drug Use - Past Family History Father Family Medical History: No Reported History Mother Family Medical History: Cancer Additional Family Medical History / Comment(s): COLON AND LUNG CANCER- AT AGE 50 General Exam Limitations: no limitations General appearance: alert, in no apparent distress Eye exam: Present: normal appearance Respiratory exam: Present: normal lung sounds bilaterally Cardiovascular Exam: Present: regular rate, normal rhythm, systolic murmur (3/6 LLSB) GI/Abdominal exam: Present: soft (No Tenderness to palpation. No rebound guarding or rigidity.) Neurological exam: Present: alert, oriented X3 Skin exam: Present: warm, dry Course Vital Signs 07/30/23 10:32 Temperature 98.5 F Pulse Rate 118 H Respiratory 18 Rate Blood Pressure 166/93 O2 Sat by Pulse 97 Oximetry - Reevaluation(s) Reevaluation #1: She reevaluated. Patient able to eat a in Terrace sandwich and tolerate without difficulty. At this time, patient reports feeling completely resolved. 07/30/23 11:22 Medical Decision Making - Medical Decision Making Was pt. sent in by a medical professional or institution (, JOEL, ROBOT TECHNICIAN, urgent care, hospital, or residential...) When possible be specific @ -No Did you speak to anyone other than the patient for history (EMS, parent, family, police, friend...)? What history was obtained from this source @ -No Did you review nursing and triage notes (agree or disagree)? Why? @ -I reviewed and agree with nursing and triage notes Were old charts reviewed (outside hosp., previous admission, EMS record, old EKG, old radiological studies, urgent care reports/EKG's, residential records)? Report findings @ -Prior admission reviewed. For further details please see HPI. Differential Diagnosis (chest pain, altered mental status, abdominal pain women, abdominal pain men, vaginal bleeding, weakness, fever, dyspnea, syncope, headache, dizziness, GI bleed, back pain, seizure, CVA, palpatations, mental health, musculoskeletal)? @ -Differential Abdominal Pain Women: Appendicitis, Cholecystitis, diverticulosis, ischemic bowel, pancreatitis, hepatitis, UTI, gastroenteritis, AAA, incarcerated hernia, bowel obstruction, constipation, inflammatory bowel, hepatitis, peptic ulcer disease, splenic infarction, perforated viscus, vulvitis, ovarian torsion, PID, kidney stone, placenta abruption, this is not meant to be an all-inclusive list EKG interpreted by me (3pts min.). @ -None X-rays interpreted by me (1pt min.). @ -None done CT interpreted by me (1pt min.). @ -None done U/S interpreted by me (1pt. min.). @ -None done What testing was considered but not performed or refused? (CT, X-rays, U/S, labs)? Why? @ -None What meds were considered but not given or refused? Why? @ -None Did you discuss the management of the patient with other professionals (professionals i.e. , PA, ROBOT TECHNICIAN, lab, RT, psych nurse, child welfare social worker, regional vice president life sales, teacher, property portfolio officer, top case assembler)? Give summary @ -No Was smoking cessation discussed for >3mins.? @ -No Was critical care preformed (if so, how long)? @ -No Were there social determinants of health that impacted care today? How? (Homelessness, low income, unemployed, alcoholism, drug addiction, transportation, low edu. Level, literacy, decrease access to med. care, [facility], rehab)? @ -No Was there de-escalation of care discussed even if they declined (Discuss DNR or withdrawal of care, Hospice)? DNR status @ -No What co-morbidities impacted this encounter? (DM, HTN, Smoking, COPD, CAD, Cancer, CVA, ARF, Chemo, Hep., AIDS, mental health diagnosis, sleep apnea, morbid obesity)? @ -None Was patient admitted / discharged? Hospital course, mention meds given and route, prescriptions, significant lab abnormalities, going to OR and other pertinent info. @ -Discharge 52-year-old female presented to the ED with 2-3 days of nausea and no associated symptoms. Provided antiemetics by EMS. Upon arrival to the ED, patient reported complete resolution of her symptoms and reports that she would like to eat. Patient provided food and tolerated this without difficulty. Laboratory studies here largely unremarkable. Patient requesting to eat a done and would like to be discharged home. Discharged home in stable condition. Discussed return precautions with patient who verbalizes agreement. Undiagnosed new problem with uncertain prognosis? @ -No Drug Therapy requiring intensive monitoring for toxicity (Heparin, Nitro, Insulin, Cardizem)? @ -No Were any procedures done? @ -No Diagnosis/symptom? @ -Nausea Acute, or Chronic, or Acute on Chronic? @ -Acute Uncomplicated (without systemic symptoms) or Complicated (systemic symptoms)? @ -Uncomplicated Side effects of treatment? @ -No Exacerbation, Progression, or Severe Exacerbation? @ -No Poses a threat to life or bodily function? How? (Chest pain, USA, [place], pneumonia, PE, COPD, DKA, ARF, appy, cholecystitis, CVA, Diverticulitis, Homicidal, Suicidal, threat to staff... and all critical care pts) @ -No - Lab Data Result diagrams: 07/30/23 10:47 Lab Results 07/30/23 07/30/23 Range/Units 10:47 10:47 Sodium 139 (137-145) mmol/L Potassium 5.0 (3.5-5.1) mmol/L Chloride 103 (98-107) mmol/L Carbon Dioxide 21 L (22-30) mmol/L Anion Gap 15 mmol/L BUN 34 H (7-17) mg/dL Creatinine 1.03 (0.52-1.04) mg/dL Est GFR (CKD-EPI)AfAm 72 (>60 ml/min/1.73 sqM) Est GFR (CKD-EPI)NonAf 63 (>60 ml/min/1.73 sqM) Glucose 135 H (74-99) mg/dL Calcium 10.0 (8.4-10.2) mg/dL Total Bilirubin 1.7 H (0.2-1.3) mg/dL AST 53 H (14-36) U/L ALT 32 (4-34) U/L Alkaline Phosphatase 171 H (38-126) U/L Total Protein 8.4 H (6.3-8.2) g/dL Albumin 4.5 (3.5-5.0) g/dL Urine Color Yellow Urine Appearance Clear (Clear) Urine pH 6.0 (5.0-8.0) Ur Specific [place] 1.021 (1.001-1.035) Urine Protein 3+ H (Negative) Urine Glucose (UA) Negative (Negative) Urine Ketones Negative (Negative) Urine Blood Small H (Negative) Urine Nitrite Negative (Negative) Urine Bilirubin Negative (Negative) Urine Urobilinogen <2.0 (<2.0) mg/dL Ur Leukocyte Esterase Negative (Negative) Urine RBC 2 (0-5) /hpf Urine WBC 2 (0-5) /hpf Ur Squamous Epith Cells 2 (0-4) /hpf Urine Mucus Rare H (None) /hpf Disposition Clinical Impression: Nausea Disposition: HOME SELF-CARE Condition: Good Instructions (If sedation given, give patient instructions): Acute Nausea and Vomiting (ED) Additional Instructions: Please return to the Emergency Department if symptoms worsen or any other concerns. Is patient prescribed a controlled substance at d/c from ED?: No Referrals: None,Stated [Primary Care Provider] - 1-2 days Time of Disposition: 12:36
[2023-07-30 10:48] VITALS: RESP 18; TEMP 98.5
[2023-07-30 11:08] LABS: Appearance,Urine Clear (Clear); Bilirubin,Urine Negative (Negative); Blood,Urine Small (Negative); Color,Urine Yellow; Glucose,Urine (UA) Negative (Negative); Ketones,Urine Negative (Negative); Leukocyte Esterase,Urine Negative (Negative); Mucus,Urine Rare /hpf; Nitrite,Urine Negative (Negative); Protein,Urine 3+ (Negative); RBC,Urine 2 /hpf (0-5); Specific Gravity,Urine 1.021 (1.001-1.035); Squamous Epithelial Cell,Urine 2 /hpf (0-4); Urobilinogen,Urine <2.0 mg/dL (<2.0); WBC,Urine 2 /hpf (0-5)
[2023-07-30 12:09] LABS: ALT 32 U/L (4-34); AST 53 U/L (14-36); African American GFR (CKD) 72 (>60 ml/min/1.73 sqM); Albumin 4.5 g/dL (3.5-5.0); Alkaline Phosphatase 171 U/L (38-126); Anion Gap 15 mmol/L; Blood Urea Nitrogen 34 mg/dL (7-17); Carbon Dioxide 21 mmol/L (22-30); Chloride 103 mmol/L (98-107); Glucose 135 mg/dL (74-99); Non-African American GFR(CKD) 63 (>60 ml/min/1.73 sqM); Sodium 139 mmol/L (137-145); Total Bilirubin 1.7 mg/dL (0.2-1.3); Total Protein 8.4 g/dL (6.3-8.2)
[2023-07-30] MEDS ORDERED: ONDANSETRON 4 MG ODT STARTER PACK 2 TAB BTL PO STA (12:37)
[2023-07-30 12:39] LABS: Basophils % (A) 0 %; Eosinophils % (A) 0 %; HCT 43.8 % (34.0-46.0); Lymphocytes # (A) 1.4 k/uL (1.0-4.8); Lymphocytes % (A) 16 %; MCH 32.8 pg (25.0-35.0); MCHC 34.9 g/dL (31.0-37.0); MCV 93.8 fL (80.0-100.0); Mean Platelet Volume 8.3; Monocytes # (A) 0.4 k/uL (0-1.0); Monocytes % (A) 4 %; Neutrophils # (A) 6.9 k/uL (1.3-7.7); Neutrophils % (A) 78 %; Platelet Count 131 k/uL (150-450); RBC 4.67 m/uL (3.80-5.40); RDW 13.7 % (11.5-15.5); WBC 8.8 k/uL (3.8-10.6)
[2023-07-30 13:02] LABS: HGB 15.3 gm/dL (11.4-16.0)
[2023-07-30 13:23] VITALS: BP 156/90; PULSE 110
== END 2023-07-30 12:50 | disposition home or self-care (01) ==
LOC: EC 10:21
DX: R11.0 Nausea (principal); F41.9 Anxiety disorder, unspecified; F31.9 Bipolar disorder, unspecified; Z79.899 Other long term (current) drug therapy; Z88.0 Allergy status to penicillin; F17.200 Nicotine dependence, unspecified, uncomplicated; F14.90 Cocaine use, unspecified, uncomplicated; F15.90 Other stimulant use, unspecified, uncomplicated
CPT/HCPCS: 36415; 80053; 85025; 81001; 99285; 96360; S0119

== ENCOUNTER 2023-08-27 12:11 | Inpatient (IN) | payer MEDICARE, OTHER ==
[2023-08-27] MEDS ORDERED: SODIUM CHLORIDE 0.9% 1,000 ML IV ONE ×2 (12:23→14:27)
[2023-08-27] MEDS ORDERED: SODIUM CHLORIDE 0.9% 500 ML 500 ML IV ONE (12:23)
[2023-08-27] MEDS ORDERED: NICOTINE 21MG/24HR PATCH TRANSDERM STA (12:24)
--- NOTE | 2023-08-27 12:25 | ED ---
General Adult HPI - General Chief complaint: Psychiatric Symptoms Stated complaint: ETOH Time Seen by Provider: 08/27/23 12:20 Source: patient, EMS, RN notes reviewed, old records reviewed Mode of arrival: EMS Limitations: no limitations - History of Present Illness Initial comments: This is a 53-year-old female who presents emergency Department complaining that she is suicidal. Mother called EMS because she Indicating that she wanted to kill herself because she misses her was . Patient did drink a heavy amount today but she's not sure how much. Patient states she isn't suicidal. Patient does not have a plan currently. He denies any drug use she does state. Patient denies chest pain difficulty breathing first breath per patient denies palpitations. Patient denies chest pain. Patient denies headache patient with numbness weakness. Patient denies any back pain. Patient denies any fever chills or cough - Related Data Home Medications Medication Instructions Recorded Confirmed Bumetanide [BUMEX] 0.5 mg PO DAILY 07/28/22 06/25/23 Buprenorphine/Naloxone 8Mg/2Mg 0.5 film SL DAILY@1500 07/28/22 06/25/23 [Suboxone 8-2Mg Film] Buprenorphine/Naloxone 8Mg/2Mg 1 film SL BID 07/28/22 06/25/23 [Suboxone 8-2Mg Film] Mirtazapine [Remeron] 45 mg PO HS 07/28/22 06/25/23 Propranolol LA [Inderal LA] 60 mg PO DAILY 07/28/22 06/25/23 busPIRone HCL 15 mg PO BID 07/28/22 06/25/23 chlorproMAZINE [Thorazine] 25 mg PO HS 07/28/22 06/25/23 Baclofen [Lioresal] 10 mg PO Q6H 03/09/23 06/25/23 Midodrine [ProAmatine] 5 mg PO TID 03/09/23 06/25/23 Lactulose 20 gm PO BID 06/25/23 06/25/23 Levothyroxine Sodium [Synthroid] 50 mcg PO DAILY 06/25/23 06/25/23 Rifaximin [Xifaxan] 550 mg PO BID 06/25/23 06/25/23 tiZANidine [Zanaflex] 8 mg PO Q6H PRN 06/25/23 06/25/23 Previous Rx's Medication Instructions Recorded Aspirin EC [Ecotrin Low Dose] 81 mg PO DAILY #30 tab 03/12/23 Allergies Allergy/AdvReac Type Severity Reaction Status Date / Time Penicillins Allergy Severe Rash/Hives Verified 08/27/23 12:23 Review of Systems ROS Statement: Those systems with pertinent positive or pertinent negative responses have been documented in the HPI. ROS Other: All systems not noted in ROS Statement are negative. 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 "IN OCTOBER DRANK RUBBING ALCOHOL". FAMILT STATED PT TAKES SUBOXONE TO HELP HER NOT DRINK AND FOR PAIN IN LEGS/KNEES. Hep C Positive History of Any Multi-Drug Resistant Organisms: MRSA Date of last positivie culture/infection: 04/20/16 MDRO Source:: SPUTUM Past Surgical History: Hernia Repair, Uterine Ablation Additional Past Surgical History / Comment(s): NOVOSURE ENDOMETRIAL ABLATION. PT HAD "THROAT BANDING DONE" Past Anesthesia/Blood Transfusion Reactions: No Reported Reaction Additional Past Anesthesia/Blood Transfusion Reaction / Comment(s): Pt received previous blood transfusion at [facility] per past medical record. Past Psychological History: Anxiety, Bipolar, Depression, Panic Disorder Smoking Status: Current every day smoker Past Alcohol Use History: Abuse, Daily Past Drug Use History: Cocaine, Heroin, IV Drug Use - Past Family History Father Family Medical History: No Reported History Mother Family Medical History: Cancer Additional Family Medical History / Comment(s): COLON AND LUNG CANCER- AT AGE 50 General Exam - General Exam Comments Initial Comments: GENERAL: Patient is well-developed and well-nourished. Patient is nontoxic and well-hydrated and is in no acute distress. Patient does appear intoxicated ENT: Neck is soft and supple. No significant lymphadenopathy is noted. Oropharynx is clear. Moist mucous membranes. Neck has full range of motion without eliciting any pain. EYES: The sclera were anicteric and conjunctiva were pink and moist. Extraocular movements were intact and pupils were equal round and reactive to light. Eyelids were unremarkable. PULMONARY: Unlabored respirations. Good breath sounds bilaterally. No audible rales rhonchi or wheezing was noted. CARDIOVASCULAR: There is a regular rate and rhythm without any murmurs gallops or rubs. ABDOMEN: Soft and nontender with normal bowel sounds. SKIN: Skin is clear with no lesions or rashes and otherwise unremarkable. NEUROLOGIC: Patient is alert and oriented x3. Cranial nerves II through XII are grossly intact. Motor and sensory are also intact. Normal speech, volume and content. Symmetrical smile. MUSCULOSKELETAL: Normal extremities with adequate strength and full range of motion. Patient has a chronically deformed right ankle and she states it was fractured she never had it fixed LYMPHATICS: No significant lymphadenopathy is noted PSYCHIATRIC: Patient is intoxicated but she is very tearful and she describes wanting to kill her self. Patient states she has no exact plan but she doesn't how she does just wants to do it. Patient states she misses her . Limitations: no limitations Course Vital Signs 08/27/23 12:20 Temperature 97.6 F Pulse Rate 92 Respiratory 20 Rate Blood Pressure 136/100 O2 Sat by Pulse 97 Oximetry Medical Decision Making - Medical Decision Making Was pt. sent in by a medical professional or institution (JOEL Lin, CARRIAGE SETTER, urgent care, hospital, or shelter...) When possible be specific @ -No Did you speak to anyone other than the patient for history (EMS, parent, family, police, friend...)? What history was obtained from this source @ -No Did you review nursing and triage notes (agree or disagree)? Why? @ -I reviewed and agree with nursing and triage notes Were old charts reviewed (outside hosp., previous admission, EMS record, old EKG, old radiological studies, urgent care reports/EKG's, shelter records)? Report findings @ -No Differential Diagnosis (chest pain, altered mental status, abdominal pain women, abdominal pain men, vaginal bleeding, weakness, fever, dyspnea, syncope, headache, dizziness, GI bleed, back pain, seizure, CVA, palpatations, mental hea lth, musculoskeletal)? @ -Differential Mental Health Depression, anxiety, bipolar, psychosis, schizophrenia, borderline personality, situational depression, adjustment disorder, behavioral disorder, brain tumor, malingering, substance abuse, encephalopathy, medication reaction, dementia, hypothyroidism, degenerative neurologic disorder, lupus.... This is not meant to be all-inclusive list EKG interpreted by me (3pts min.). @ -As above X-rays interpreted by me (1pt min.). @ -None done CT interpreted by me (1pt min.). @ -None done U/S interpreted by me (1pt. min.). @ -None done What testing was considered but not performed or refused? (CT, X-rays, U/S, labs)? Why? @ -None What meds were considered but not given or refused? Why? @ -None Did you discuss the management of the patient with other professionals (professionals i.e. , PA, CARRIAGE SETTER, lab, RT, psych nurse, social work program coordinator, telesales supervisor, teacher, law enforcement officer, ed case manager)? Give summary @ -I spoke with Dr. Conklin she agreed to admit the patient Was smoking cessation discussed for >3mins.? @ -No Was critical care preformed (if so, how long)? @ -No Were there social determinants of health that impacted care today? How? (Homelessness, low income, unemployed, alcoholism, drug addiction, transportation, low edu. Level, literacy, decrease access to med. care, longterm, rehab)? @ -No Was there de-escalation of care discussed even if they declined (Discuss DNR or withdrawal of care, Hospice)? DNR status @ -No What co-morbidities impacted this encounter? (DM, HTN, Smoking, COPD, CAD, Cancer, CVA, ARF, Chemo, Hep., AIDS, mental health diagnosis, sleep apnea, morbid obesity)? @ -None Was patient admitted / discharged? Hospital course, mention meds given and route, prescriptions, significant lab abnormalities, going to OR and other pertinent info. @ -Patient's lab work came back relatively normal. Patient was highly intox icated however at 400 and 6:00 level. I spoke with Dr. Conklin she agreed to admit the patient admitted the patient wrote admitting orders I put the patient a CIRI protocol . Patient also will have a psych consult Undiagnosed new problem with uncertain prognosis? @ -No Drug Therapy requiring intensive monitoring for toxicity (Heparin, Nitro, Insulin, Cardizem)? @ -No Were any procedures done? @ -No Diagnosis/symptom? @ -Alcohol intoxication Acute, or Chronic, or Acute on Chronic? @ -Acute Uncomplicated (without systemic symptoms) or Complicated (systemic symptoms)? @ -Complicated Side effects of treatment? @ -No Exacerbation, Progression, or Severe Exacerbation? @ -No Poses a threat to life or bodily function? How? (Chest pain, USA, [place], pneumonia, PE, COPD, DKA, ARF, appy, cholecystitis, CVA, Diverticulitis, Homicidal, Suicidal, threat to staff... and all critical care pts) @ -No Diagnosis/symptom? @ -Suicidal ideations Acute, or Chronic, or Acute on Chronic? @ -Acute Uncomplicated (without systemic symptoms) or Complicated (systemic symptoms)? @ -complicated Side effects of treatment? @ -none Exacerbation, Progression, or Severe Exacerbation] @ -no Poses a threat to life or bodily function? @ -no - Lab Data Result diagrams: 08/27/23 12:37 08/27/23 12:37 Lab Results 08/27/23 08/27/23 08/27/23 Range/Units 12:37 12:37 12:37 WBC 7.0 (3.8-10.6) k/uL RBC 4.69 (3.80-5.40) m/uL Hgb 15.0 (11.4-16.0) gm/dL Hct 42.9 (34.0-46.0) % MCV 91.4 (80.0-100.0) fL MCH 32.0 (25.0-35.0) pg MCHC 35.0 (31.0-37.0) g/dL RDW 13.6 (11.5-15.5) % Plt Count 168 (150-450) k/uL MPV 7.8 Neutrophils % 65 % Lymphocytes % 29 % Monocytes % 4 % Eosinophils % 0 % Basophils % 1 % Neutrophils # 4.6 (1.3-7.7) k/uL Lymphocytes # 2.0 (1.0-4.8) k/uL Monocytes # 0.3 (0-1.0) k/uL Eosinophils # 0.0 (0-0.7) k/uL Basophils # 0.0 (0-0.2) k/uL Sodium 142 (137-145) mmol/L Potassium 5.1 (3.5-5.1) mmol/L Chloride 105 (98-107) mmol/L Carbon Dioxide 22 (22-30) mmol/L Anion Gap 15 mmol/L BUN 28 H (7-17) mg/dL Creatinine 0.92 (0.52-1.04) mg/dL Est GFR (CKD-EPI)AfAm 83 (>60 ml/min/1.73 sqM) Est GFR (CKD-EPI)NonAf 72 (>60 ml/min/1.73 sqM) Glucose 118 H (74-99) mg/dL Calcium 9.1 (8.4-10.2) mg/dL Magnesium 2.5 H (1.6-2.3) mg/dL Total Bilirubin 1.1 (0.2-1.3) mg/dL AST 61 H (14-36) U/L ALT 48 H (4-34) U/L Alkaline Phosphatase 234 H (38-126) U/L Total Protein 8.7 H (6.3-8.2) g/dL Albumin 4.6 (3.5-5.0) g/dL Urine Opiates Screen Not Detected (NotDetected) Ur Oxycodone Screen Not Detected (NotDetected) Urine Methadone Screen Not Detected (NotDetected) Ur Propoxyphene Screen Not Detected (NotDetected) Ur Barbiturates Screen Not Detected (NotDetected) U Tricyclic Antidepress Not Detected (NotDetected) Ur Phencyclidine Scrn Not Detected (NotDetected) Ur Amphetamines Screen Not Detected (NotDetected) U Methamphetamines Scrn Not Detected (NotDetected) U Benzodiazepines Scrn Not Detected (NotDetected) Urine Cocaine Screen Not Detected (NotDetected) U Marijuana (THC) Screen Not Detected (NotDetected) Serum Alcohol 408 H* mg/dL Disposition Clinical Impression: Depression, Suicidal ideation, Alcohol intoxication Disposition: ADMITTED IP TO THIS [facility] Referrals: None,Stated [Primary Care Provider] - 1-2 days Time of Disposition: 14:27
[2023-08-27 12:57] LABS: Basophils % (A) 1 %; Eosinophils % (A) 0 %; HCT 42.9 % (34.0-46.0); Lymphocytes % (A) 29 %; MCV 91.4 fL (80.0-100.0); Mean Platelet Volume 7.8; Monocytes # (A) 0.3 k/uL (0-1.0); Monocytes % (A) 4 %; Neutrophils # (A) 4.6 k/uL (1.3-7.7); Neutrophils % (A) 65 %; Platelet Count 168 k/uL (150-450); RBC 4.69 m/uL (3.80-5.40); RDW 13.6 % (11.5-15.5)
[2023-08-27 13:16] LABS: ALT 48 U/L (4-34); AST 61 U/L (14-36); African American GFR (CKD) 83 (>60 ml/min/1.73 sqM); Albumin 4.6 g/dL (3.5-5.0); Alkaline Phosphatase 234 U/L (38-126); Anion Gap 15 mmol/L; Blood Urea Nitrogen 28 mg/dL (7-17); Calcium 9.1 mg/dL (8.4-10.2); Carbon Dioxide 22 mmol/L (22-30); Chloride 105 mmol/L (98-107); Glucose 118 mg/dL (74-99); Magnesium 2.5 mg/dL (1.6-2.3); Non-African American GFR(CKD) 72 (>60 ml/min/1.73 sqM); Potassium 5.1 mmol/L (3.5-5.1); Sodium 142 mmol/L (137-145); Total Bilirubin 1.1 mg/dL (0.2-1.3); Total Protein 8.7 g/dL (6.3-8.2)
[2023-08-27 13:27] LABS: Alcohol 408 mg/dL
[2023-08-27 13:56] LABS: Amphetamine Screen,Urine Not Detected (NotDetected); Barbiturate Screen,Urine Not Detected (NotDetected); Benzodiazepines Screen,Urine Not Detected (NotDetected); Cocaine Screen,Urine Not Detected (NotDetected); Methadone Screen, Urine Not Detected (NotDetected); Opiate Screen,Urine Not Detected (NotDetected); Oxycodone Screen, Urine Not Detected (NotDetected); Phencyclidine Screen,Urine Not Detected (NotDetected); Tricyclic Antidepressant,Urine Not Detected (NotDetected); Urn Cannabinoid Scrn Not Detected (NotDetected)
[2023-08-27] MEDS ORDERED: LORazepam 0.5 MG TAB PO PRN (14:28)
[2023-08-27] MEDS ORDERED: LORazepam 1 MG TAB PO PRN ×2 (14:28)
[2023-08-27] MEDS ORDERED: THIAMINE 100 MG/ML 2 ML VIAL IM STA (14:28)
[2023-08-27] MEDS ORDERED: ONDANSETRON 4 MG/2 ML VIAL IVP PRN (16:08)
[2023-08-27] MEDS ORDERED: CALCIUM CARBONATE 500 MG CHEWABLE PO PRN (16:08)
[2023-08-27] MEDS ORDERED: bisacodyL 5 MG TABLET.DR PO PRN (16:29)
[2023-08-27] MEDS ORDERED: BENZOCAINE/MENTHOL LOZENG 1 EACH LOZENGE MUCOUS MEM PRN (16:29)
[2023-08-27] MEDS ORDERED: NALOXONE 0.4 MG/ML 1 ML VIAL IV PRN (16:29)
--- NOTE | 2023-08-27 16:44 | P.HPIM ---
History of Present Illness H&P Date: 08/27/23 Patient is a 53 yo CF with a hx of severe mitral regurgitation, seizure, alcohol withdrawal related seizures, and chronic alcoholic liver disease who was brought into the emergency department due to suicidal ideation. The emergency department she underwent an extensive evaluation. Initial vital signs were within normal limits. Initial laboratory analysis included CBC, CMP, magnesium, urine drug screen, and alcohol level which were remarkable for magnesium 2.5, AST 61, ALT 48, alkaline phosphatase 234, and serum alcohol level 408. She was placed in observation to allow for clearance of her alcohol before evaluation by psych. Of note patient was recently hospitalized here from 06/25 through 06/26 for possible seizure disorder, aspiration pneumonia, and possible anoxic encephalopathy. At that point in time EEG was performed which showed a burst suppression pattern and continuous EEG monitoring was recommended that patient was therefore transferred to [facility]. Patient seen and examined at bedside. She initially tells me that she is just here for upset stomach. After I stated to her that the ER staff has related to me that she is here for suicidal ideation, she continued to deny suicidal ideation. Once I informed her that I was told she was asking to be with her again she does admit to wanting to be with her . She starts crying and just stating that she is sick. She is unable to elaborate more on why she is to call or how she is feeling sick. She does tell me that she typically does not drink but drak a pint today. She then states she just wants a medication to put her to sleep. When I tell her I cannot les this request she stopped speaking to be altogether. Vital signs reviewed General: nontoxic, no distress, appears at stated age Derm: warm, dry Eyes: EOMI, no lid lag, anicteric sclera, pupils equal round reactive to light ENT: Nose and ears atraumatic, no thrush, no pharyngeal erythema Cardiovascular: S1S2 reg grade 3 murmur positive posterior tibial pulse bilateral, no edema Lungs: clear to auscultation bilateral, no rhonchi, no rales, no wheeze, no accessory muscle use Abdominal: soft, nontender to palpation, no guarding, no appreciable organomegaly, normal bowel sounds Ext: no gross muscle atrophy, no contractures Neuro: CN II-XII grossly intact, no focal neuro deficits Psych: Alert, oriented, upset and crying Assessment/Plan: Alcohol intoxication with hx of alcoholism Suicidal ideation Cirrhosis, 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 - admit to observation - psych consult - suicide precautions - repeat CMP in AM - CIWA protocol with ativan 0.5- 3 mg PO depending on scale, thiamine 100 mg BID, folic acido 1 md daily - seizure precautions - Resume patient Bumex 0.5 mg daily, lactulose 20 mg twice daily, rifaximin 550 mg twice daily, propranolol 60 mg daily, and Midodrine 5 mg 3 times daily Chronic: GERD Alcoholic liver disease Seizure disorder Mitral regurgitation Bulimia Anxiety/depression History of suicide attempt per prior records Hypertrophic obstructive cardiomyopathy-Echocardiogram from reviewed with hypertrophic sub-aortic stenosis and turbulent flow across the left ventricular outflow tract as well as moderate to severe mitral regurgitation Hx of IVDA Imaging: As per HPI Data Review: As per HPI The patient is admitted with an anticipated greater than 2 midnight stay for evaluation of suicidal ideation. DVT prophylaxis: SCDs Discussed with: Patient ED provider Anticipated discharge date: pending clinical course Anticipated discharge place: pending clinical course This dictation was prepared using [employer] voice recognition software. Though every attempt is made to correct errors during dictation some may still exist. 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 "IN OCTOBER DRANK RUBBING ALCOHOL". FAMILT STATED PT TAKES SUBOXONE TO HELP HER NOT DRINK AND FOR PAIN IN LEGS/KNEES. Hep C Positive History of Any Multi-Drug Resistant Organisms: MRSA Date of last positivie culture/infection: 04/20/16 MDRO Source:: SPUTUM Past Surgical History: Hernia Repair, Uterine Ablation Additional Past Surgical History / Comment(s): NOVOSURE ENDOMETRIAL ABLATION. PT HAD "THROAT BANDING DONE" Past Anesthesia/Blood Transfusion Reactions: No Reported Reaction Additional Past Anesthesia/Blood Transfusion Reaction / Comment(s): Pt received previous blood transfusion at [facility] per past medical record. Past Psychological History: Anxiety, Bipolar, Depression, Panic Disorder Smoking Status: Current every day smoker Past Alcohol Use History: Abuse, Daily Past Drug Use History: Cocaine, Heroin, IV Drug Use - Past Family History Father Family Medical History: No Reported History Mother Family Medical History: Cancer Additional Family Medical History / Comment(s): COLON AND LUNG CANCER- AT AGE 50 Medications and Allergies Home Medications Medication Instructions Recorded Confirmed Type Bumetanide [BUMEX] 0.5 mg PO DAILY 07/28/22 08/27/23 History Buprenorphine/Naloxone 8Mg/2Mg 1 film SL TID 07/28/22 08/27/23 History [Suboxone 8-2Mg Film] Mirtazapine [Remeron] 45 mg PO HS 07/28/22 08/27/23 History Propranolol LA [Inderal LA] 60 mg PO DAILY 07/28/22 08/27/23 History busPIRone HCL 15 mg PO BID 07/28/22 08/27/23 History chlorproMAZINE [Thorazine] 25 mg PO HS 07/28/22 08/27/23 History Midodrine [ProAmatine] 5 mg PO TID 03/09/23 08/27/23 History Aspirin EC [Ecotrin Low Dose] 81 mg PO DAILY #30 tab 03/12/23 08/27/23 Rx Lactulose 20 gm PO BID 06/25/23 08/27/23 History Levothyroxine Sodium [Synthroid] 50 mcg PO DAILY 06/25/23 08/27/23 History Rifaximin [Xifaxan] 550 mg PO BID 06/25/23 08/27/23 History tiZANidine [Zanaflex] 8 mg PO Q6H PRN 06/25/23 08/27/23 History Topiramate 50 mg PO BID 08/27/23 08/27/23 History Allergies Allergy/AdvReac Type Severity Reaction Status Date / Time Penicillins Allergy Severe Rash/Hives Verified 08/27/23 15:23 Physical Exam Osteopathic Statement: *. No significant issues noted on an osteopathic structural exam other than those noted in the History and Physical/Consult. Vitals: Vital Signs Temp Pulse Resp BP Pulse Ox 08/27/23 14:35 97 20 160/93 96 08/27/23 12:20 97.6 F 92 20 136/100 97 Intake and Output 08/27/23 08/27/23 08/27/23 06:59 14:59 22:59 Other: Weight 68.039 kg Results CBC & Chem 7: 08/27/23 12:37 08/27/23 12:37 Labs: Abnormal Lab Results - Last 24 Hours (Table) 08/27/23 Range/Units 12:37 BUN 28 H (7-17) mg/dL Glucose 118 H (74-99) mg/dL Magnesium 2.5 H (1.6-2.3) mg/dL AST 61 H (14-36) U/L ALT 48 H (4-34) U/L Alkaline Phosphatase 234 H (38-126) U/L Total Protein 8.7 H (6.3-8.2) g/dL Serum Alcohol 408 H* mg/dL
[2023-08-27] MEDS: LORazepam 1 MG TAB PO PRN ×2 (17:09→22:51)
[2023-08-27] MEDS: BUMETANIDE 0.5 MG TABLET PO SCH (17:24)
[2023-08-27] MEDS: MIRTAZAPINE 45 MG TABLET PO SCH (22:41)
[2023-08-27] MEDS: RIFAXIMIN 550 MG TABLET PO SCH (22:41)
[2023-08-27] MEDS: busPIRone HCl 5 MG TAB PO SCH (22:41)
[2023-08-27] MEDS: MIDODRINE 5 MG TAB PO SCH (22:41)
[2023-08-27] MEDS: chlorproMAZINE 25 MG TAB PO SCH (22:41)
[2023-08-27] MEDS: LACTULOSE 20 GM/30 ML CUP PO SCH (22:42)
[2023-08-27] MEDS: TOPIRAMATE 25 MG TAB PO SCH (22:42)
[2023-08-28] MEDS: NALOXONE SUBLINGUAL SCH ×4 (00:21→21:50)
[2023-08-28] MEDS: BUPRENORPHINE SUBLINGUAL SCH ×4 (00:21→21:50)
[2023-08-28] MEDS: LORazepam 1 MG TAB PO PRN ×5 (00:49→17:45)
[2023-08-28] MEDS: LEVOTHYROXINE 50 MCG TAB PO SCH (06:32)
[2023-08-28] MEDS: MIDODRINE 5 MG TAB PO SCH (07:44)
[2023-08-28] MEDS: MULTIVITAMINS, THERA 1 EACH TAB PO SCH (07:46)
[2023-08-28] MEDS: RIFAXIMIN 550 MG TABLET PO SCH ×2 (07:46→21:47)
[2023-08-28] MEDS: busPIRone HCl 5 MG TAB PO SCH ×2 (07:48→21:47)
[2023-08-28] MEDS: PROPRANOLOL LA 60 MG CAP.SA.24H PO SCH (07:48)
[2023-08-28] MEDS: TOPIRAMATE 25 MG TAB PO SCH ×2 (07:48→21:47)
[2023-08-28] MEDS: THIAMINE 100 MG TAB PO SCH (07:49)
[2023-08-28] MEDS: LACTULOSE 20 GM/30 ML CUP PO SCH ×2 (07:49→21:47)
[2023-08-28] MEDS: FOLIC ACID 1 MG TAB PO SCH (07:49)
[2023-08-28] MEDS: BUMETANIDE 0.5 MG TABLET PO SCH (07:49)
[2023-08-28] MEDS: ASPIRIN 81 MG PO SCH (07:50)
[2023-08-28 11:29] LABS: ALT 38 U/L (8-44); AST 54 U/L (13-35); Albumin 3.8 d/dL (3.8-4.9); Albumin/Globulin Ratio 1.31 Ratio (1.60-3.17); Alkaline Phosphatase 218 U/L (41-126); BUN/Creat Ratio 22.33 Ratio (12.00-20.00); Blood Urea Nitrogen 20.1 mg/dL (9.0-27.0); Carbon Dioxide 20.8 mmol/L (21.6-31.8); Chloride 106 mmol/L (96-109); Globulin 2.9 d/dL (1.6-3.3); Glucose 105 mg/dL (70-110); Potassium 4.2 mmol/L (3.5-5.5); Sodium 139 mmol/L (135-145); Total Protein 6.7 d/dL (6.2-8.2)
[2023-08-28 11:30] LABS: Basophils # (A) 0.02 X 10*3/uL (0.00-0.10); Basophils % (A) 0.4 %; Eosinophils # (A) 0 X 10*3/uL (0.04-0.35); Eosinophils % (A) 0 %; HCT 36.1 % (37.2-46.3); HGB 12.5 d/dL (12.0-15.0); Immature Grans, Automated 0 %; Immature Platelet Fraction 13.2 % (1.1-6.1); Lymphocytes % (A) 23.2 %; MCH 31.1 pg (27.0-32.0); MCHC 34.6 d/dL (32.0-37.0); MCV 89.8 FL (80.0-97.0); Mean Platelet Volume 14.3 FL (9.5-12.2); Monocytes # (A) 0.76 X 10*3/uL (0.20-1.00); Monocytes % (A) 14.7 %; NRBC Per 100 WBC 0 X 10*3/uL (0.00-0.01); Neutrophils # (A) 3.19 X 10*3/uL (1.80-7.70); Neutrophils % (A) 61.7 %; Platelet Count 48 X 10*3/uL (140-440); RBC 4.02 X 10*6/uL (4.10-5.20); RBC Morphology Normal (Normal); RDW 13.2 % (11.5-14.5); WBC 5.17 X 10*3/uL (4.50-10.00)
[2023-08-28] MEDS ORDERED: LACTULOSE 20 GM/30 ML CUP PO ONE (14:00)
--- NOTE | 2023-08-28 14:28 | P.PN ---
Subjective Progress Note Date: 08/28/23 Patient is a 53 yo CF with a hx of severe mitral regurgitation, seizure, alcohol withdrawal related seizures, and chronic alcoholic liver disease who was brought into the emergency department due to suicidal ideation. The emergency department she underwent an extensive evaluation. Initial vital signs were within normal limits. Initial laboratory analysis included CBC, CMP, magnesium, urine drug screen, and alcohol level which were remarkable for magnesium 2.5, AST 61, ALT 48, alkaline phosphatase 234, and serum alcohol level 408. She was placed in observation to allow for clearance of her alcohol before evaluation by psych. The morning after admission she had increased confusion and her ammonia was slightly elevated at 42. Her lactulose was increased. Patient seen and examined at bedside. She states that she is feeling tired and needs subaxone. She has no other complaints at this time. Vital signs reviewed General: nontoxic, no distress, appears at stated age Cardiovascular: S1S2 reg, no murmur, positive posterior tibial pulse bilateral, Lungs: Decreased bs bilateral, no rhonchi, no rales , no accessory muscle use Abdominal: soft, nontender to palpation, no guarding, no appreciable organomegaly Ext: no gross muscle atrophy, no edema b/l lower extremities, no contractures Neuro: CN II-XI grossly intact, no focal neuro deficits Psych: Alert, oriented to self and 2022- , -september, appropriate affect Assessment/Plan: Metabolic encepahlopathy, likely due to alcohol withdrawal and elevated ammonia Alcohol intoxication with hx of alcoholism Suicidal ideation Cirrhosis, 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 No indication for transfusion at this time. - psych consult - suicide precautions - repeat CMP and ammonia in AM - CIWA protocol with ativan 0.5- 3 mg PO depending on scale, thiamine 100 mg BID, folic acid 1 mdg daily - seizure precautions - Conitnue Bumex 0.5 mg daily, lactulose 20 mg twice daily, rifaximin 550 mg twice daily, propranolol 60 mg daily Chronic: GERD Alcoholic liver disease Seizure disorder Mitral regurgitation Bulimia Anxiety/depression History of suicide attempt per prior records Hypertrophic obstructive cardiomyopathy-Echocardiogram from reviewed with hypertrophic sub-aortic stenosis and turbulent flow across the left ventricular outflow tract as well as moderate to severe mitral regurgitation Hx of IVDA Imaging: None new Data Review: Labs reviewed from today includes CBC, basic metabolic profile, ammonia level which I'll remarkable for platelets 48, AST 54, ammonia 45 DVT prophylaxis: SCDs Anticipated discharge date: Pending Clinical course Anticipated discharge place: U This dictation was prepared using [employer] voice recognition software. Though every attempt is made to correct errors during dictation some may still exist. Objective - Vital Signs Vital signs: Vital Signs Temp 98.7 F 08/28/23 08:00 Pulse 94 08/28/23 08:00 Resp 17 08/28/23 08:00 BP 167/110 08/28/23 08:00 Pulse Ox 97 08/28/23 08:00 FiO2 Intake & Output 08/27/23 08/28/23 08/28/23 18:59 06:59 18:59 Weight 68.039 kg Other: Voiding Method Toilet Toilet # Voids 0 2 - Labs CBC & Chem 7: 08/28/23 07:01 08/28/23 07:01 Labs: Abnormal Lab Results - Last 24 Hours (Table) 08/28/23 08/28/23 08/28/23 Range/Units 07:01 07:01 07:01 RBC 4.02 L (4.10-5.20) X 10*6/uL Hct 36.1 L (37.2-46.3) % Plt Count 48 L (140-440) X 10*3/uL MPV 14.3 H (9.5-12.2) FL Eosinophils # 0 L (0.04-0.35) X 10*3/uL Immature Plt Fraction 13.2 H (1.1-6.1) % Carbon Dioxide 20.8 L (21.6-31.8) mmol/L Anion Gap 12.20 H (4.00-12.00) mmol/L BUN/Creatinine Ratio 22.33 H (12.00-20.00) Ratio AST 54 H (13-35) U/L Alkaline Phosphatase 218 H (41-126) U/L Ammonia 45 H (<30) umol/L Albumin/Globulin Ratio 1.31 L (1.60-3.17) Ratio
[2023-08-28] MEDS: cloNIDine HCL 0.1 MG TAB PO SCH ×2 (14:42→21:47)
--- NOTE | 2023-08-28 15:40 | CT ---
EXAMINATION TYPE: CT brain wo con DATE OF EXAM: 08/28/2023 COMPARISON: 06/26/2023 HISTORY: confusion, ams CT DLP: 1146.4 mGycm Automated exposure control for dose reduction was used. FINDINGS: Ventricular system is midline with no evidence of acute hemorrhage or mass effect. No midline shift. Faint low attenuation in the ventricular white matter is nonspecific. Orbits are symmetric. Calvarium intact. Sella turcica is normal. Intracranial atherosclerotic changes noted involving the bilateral cavernous segment ICA. IMPRESSION: NO ACUTE HEMORRHAGE OR MASS EFFECT. FAINT LOW ATTENUATION IN THE WHITE MATTER IS NONSPECIFIC. CONSIDE R FOLLOW-UP MRI FOR FURTHER EVALUATION.
[2023-08-28 16:14] LABS: INR 1.1 (<1.2); Prothrombin Time 11.5 sec (10.0-12.5)
[2023-08-28] MEDS: MIRTAZAPINE 45 MG TABLET PO SCH (21:47)
[2023-08-28] MEDS: chlorproMAZINE 25 MG TAB PO SCH (21:47)
[2023-08-29] MEDS: LORazepam 1 MG TAB PO PRN (03:02)
[2023-08-29] MEDS: LEVOTHYROXINE 50 MCG TAB PO SCH (06:53)
[2023-08-29] MEDS: LACTULOSE 20 GM/30 ML CUP PO SCH ×3 (08:40→21:44)
[2023-08-29] MEDS: MULTIVITAMINS, THERA 1 EACH TAB PO SCH (08:40)
[2023-08-29] MEDS: busPIRone HCl 5 MG TAB PO SCH ×2 (08:41→21:44)
[2023-08-29] MEDS: PROPRANOLOL LA 60 MG CAP.SA.24H PO SCH (08:41)
[2023-08-29] MEDS: THIAMINE 100 MG TAB PO SCH (08:41)
[2023-08-29] MEDS: RIFAXIMIN 550 MG TABLET PO SCH ×2 (08:41→21:43)
[2023-08-29] MEDS: FOLIC ACID 1 MG TAB PO SCH (08:41)
[2023-08-29] MEDS: cloNIDine HCL 0.1 MG TAB PO SCH ×2 (08:41→21:44)
[2023-08-29] MEDS: TOPIRAMATE 25 MG TAB PO SCH ×2 (08:41→21:44)
[2023-08-29] MEDS: BUMETANIDE 0.5 MG TABLET PO SCH (08:41)
[2023-08-29] MEDS: ASPIRIN 81 MG PO SCH (08:41)
[2023-08-29] MEDS: NALOXONE SUBLINGUAL SCH (08:49)
[2023-08-29] MEDS: BUPRENORPHINE SUBLINGUAL SCH (08:49)
[2023-08-29 09:49] LABS: ALT 41 U/L (4-34); AST 63 U/L (14-36); African American GFR (CKD) 85 (>60 ml/min/1.73 sqM); Albumin 3.9 g/dL (3.5-5.0); Albumin/Globulin Ratio 1.1; Alkaline Phosphatase 210 U/L (38-126); Anion Gap 12 mmol/L; Blood Urea Nitrogen 21 mg/dL (7-17); Calcium 9.6 mg/dL (8.4-10.2); Carbon Dioxide 22 mmol/L (22-30); Chloride 106 mmol/L (98-107); Globulin 3.5 g/dL; Glucose 165 mg/dL (74-99); Non-African American GFR(CKD) 74 (>60 ml/min/1.73 sqM); Potassium 4.4 mmol/L (3.5-5.1); Sodium 140 mmol/L (137-145); Total Bilirubin 1.5 mg/dL (0.2-1.3); Total Protein 7.4 g/dL (6.3-8.2)
[2023-08-29] MEDS ORDERED: QUEtiapine 25 MG TAB PO PRN (12:07)
--- NOTE | 2023-08-29 12:10 | P.CN ---
Psychiatric Consult - . Consult date: 08/29/23 Consult:: 08/29/23 11:26 IDENTIFYING DATA: This patient is a 53-year-old female who has a long history of alcohol and substance abuse, depression. Patient is currently single lives in a house with her motjher in law has 1 adult son and collect Social Security REASON FOR REFERRAL: Psychiatry was consulted for suicidal ideations HISTORY OF PRESENT ILLNESS: The patient presented to the hospital on 08/27 for suicidal ideations. Apparently patient's mother called the EMS stating that patient has been abusing alcohol heavily, has been missing her that , was suicidal. Patient's urine drug was negative. Her blood alcohol level was significantly elevated at 408. Patient was seen laying in bed and appeared to be somewhat lethargic and mildly confused. She does not know today's date, she knew her correct name and knew she was in hospital "somewhere in [place]". She initially stated that "nothing's wrong" and was fairly guarded however as the interview progressed she began talking more more about feeling depressed, anxious. States that she overdosed on her Zanaflex medications. She claims that she did not know how many she took. She states that "I didn't plan on making it through that" and states that she does have a history of overdoses. She was minimizing the suicide attempt. She had very poor insight and poor judgment. Poor attention span. She is endorsing anxiety at this time and mild withdrawal symptoms. Claims that she does have a history of withdrawal seizures in the past however no DTs. She states that she is sleeping poorly at night has poor appetite as well. At this time patient denies any current suicidal or homical ideations, intent or plan. Patient denies any auditory, visual hallucinations and denies any paranoia or delusions. Patients admits to using alcohol daily as listed above, states that she drinks about a fifth of vodka a day, she was minimizing this. States that she does not use cigarettes or any other recreational drugs. She is being prescribed Suboxone daily for opiate dependence PAST PSYCHIATRIC HISTORY: Patient has a a history of polysubstance abuse, depression and anxiety. She was previously on lithium, Zyprexa Effexor Atarax in the past and is now currently on Suboxone and Remeron, Thorazine, BuSpar, Catapres. She states that she does not have an outpatient psychiatrist. Patient's last mental health admission was 2 years ago at [facility]. Patient denies any psychiatric outpatient follow-up. She claims that she overdosed on her medications about 2 years ago. PAST MEDICAL HISTORY: as per Medicine H and P ALLERGIES: as per EMR. CHEMICAL DEPENDENCY HISTORY: as per HPI. FAMILY PSYCHIATRIC/SUBSTANCE USE HISTORY: denies SOCIAL HISTORY: Patient was born and raised in [place]. 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 She denies any legal history. She currently is living with her [id number] and the house, she is single, currently she is currently unemplo yed and collecting SSI, she has one adult child. MENTAL STATUS EXAM: General Appearance: Patient appears to be thin, anxious, lethargic, older than stated age is alert, and attempts to be cooperative. Oddly confused. Patient appears to have poor hygiene and grooming wearing hospital gown with poor eye contact. Behavior: Patient is calmly lying in bed without any agitated behavior. Appears to be anxious. Oddly confused Speech: Patient's speech is fluent and nonpressured. Mood/Affect: Patient reports their mood is "depressed and anxious", affect is congruent and constricted Suicidality/Homicidality: Patient denies having any suicidal or homicidal ideation intent or plan. Perceptions: Patient denies any visual hallucinations and denies any auditory hallucinations Though content/process: There is no evidence of any delusional thought content and thought process is linear and goal-directed. Minimizing her need for treatment. Rationalizing. Memory and concentration: AOX3, grossly intact for the purposes of this session. Can spell "WORLD" backwards Judgment and insight: poor/impulsive IMPRESSIONS: Major depressive disorder, without psychotic features Overdose on medication Anxiety disorder unspecified Alcohol use disorder, currently in withdrawal Opioid dependence PLAN: -At this time patient DOES meet criteria for inpatient psychiatric admission, once patient is medically cleared please attempt to have patient placed for available psych bed -Would recommend the following medication changes/additions: Seroquel 25 mg daily at bedtime scheduled for a mood adjunct/insomnia, Seroquel 3 times a day when necessary for agitation/psychosis. Start Zoloft 50 mg daily for mood/anxiety. BuSpar continued at 15 mg twice a day for anxiety, can continue Suboxone and Catapres as scheduled. Continue Remeron 45 mg daily at bedtime for insomnia/mood/anxiety. -CIWA with prn ativan for etoh withdrawal. -Perforating Machine Operator spoke with patient about substance abuse and the harmful effects on medical and mental health, patient verbally understood and agreed. -Communicated plan to patient's nurse -continue 1:1 sitter for safety until patient is transferred to psych bed. -Will continue to follow along if needed -Please contact with any questions.
[2023-08-29] MEDS: SERTRALINE 50 MG TAB PO SCH (12:52)
--- NOTE | 2023-08-29 16:22 | P.PN ---
Subjective Progress Note Date: 08/29/23 (delayed charting seen at 0945 ) Patient is a 53 yo CF with a hx of severe mitral regurgitation, seizure, alcohol withdrawal related seizures, and chronic alcoholic liver disease who was brought into the emergency department due to suicidal ideation. The emergency department she underwent an extensive evaluation. Initial vital signs were within normal limits. Initial laboratory analysis included CBC, CMP, magnesium, urine drug screen, and alcohol level which were remarkable for magnesium 2.5, AST 61, ALT 48, alkaline phosphatase 234, and serum alcohol level 408. She was placed in observation to allow for clearance of her alcohol before evaluation by psych. The morning after admission she had increased confusion and her ammonia was slightly elevated at 42. Her lactulose was increased. She continued to require IV Ativan for her alcohol withdrawal Patient seen and examined at bedside. Denies any chest pain or shortness of breath. Still having a headache, some nausea, no tremors, feeling very anxious. Vital signs reviewed General: nontoxic, no distress, appears at stated age Cardiovascular: S1S2 reg, no murmur, positive posterior tibial pulse bilateral, Lungs: CTA bilateral, no rhonchi, no rales , no accessory muscle use Abdominal: soft, nontender to palpation, no guarding, no appreciable organomegaly Ext: no gross muscle atrophy, no edema b/l lower extremities, no contractures Neuro: CN II-XI grossly intact, no focal neuro deficits Psych: Alert, oriented to month, year, being in the hospital, and next holiday approaching, appropriate affect Assessment/Plan: Metabolic encepahlopathy, likely due to alcohol withdrawal and elevated ammonia Alcohol intoxication with hx of alcoholism Suicidal ideation Cirrhosis, 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 Seroquel 25 mg at bedtime, as well as 3 times a day as needed for agitation or psychosis, Zoloft 50 mg daily, BuSpar 15 mg twice daily, continue Suboxone and Catapres, continue Remeron. Chronic: GERD Alcoholic liver disease Seizure disorder Mitral regurgitation Bulimia Anxiety/depression History of suicide attempt per prior records Hypertrophic obstructive cardiomyopathy-Echocardiogram from reviewed with hypertrophic sub-aortic stenosis and turbulent flow across the left ventricular outflow tract as well as moderate to severe mitral regurgitation Hx of IVDA Patient with continued elevated CIWA scores. Transitioned to inpatient status Imaging: None new Data Review: Labs reviewed from today include BMP, liver enzymes, and ammonia level which are remarkable for BUN 21, glucose 165, total bilirubin 1.5, AST 63, ALT 41, ammonia 117. Head CT-chronically matter ischemic changes. To consider MRI in the right setting. DVT prophylaxis: SCDs Anticipated discharge date: Pending Clinical Course Anticipated discharge place: Pending Clinical Course This dictation was prepared using [employer] voice recognition software. Though every attempt is made to correct errors during dictation some may still exist. Objective - Vital Signs Vital signs: Vital Signs Temp 98.2 F 08/29/23 13:20 Pulse 88 08/29/23 13:20 Resp 19 08/29/23 13:20 BP 139/89 08/29/23 13:20 Pulse Ox 99 08/29/23 13:20 FiO2 Intake & Output 08/28/23 08/29/23 08/29/23 18:59 06:59 18:59 Other: Voiding Method Toilet Toilet # Voids 5 4 24 - Labs CBC & Chem 7: 08/28/23 07:01 08/29/23 08:43 Labs: Abnormal Lab Results - Last 24 Hours (Table) 08/29/23 08/29/23 Range/Units 08:43 08:43 BUN 21 H (7-17) mg/dL Glucose 165 H (74-99) mg/dL Total Bilirubin 1.5 H (0.2-1.3) mg/dL AST 63 H (14-36) U/L ALT 41 H (4-34) U/L Alkaline Phosphatase 210 H (38-126) U/L Ammonia 117 H (<30) umol/L
[2023-08-29] MEDS ORDERED: QUEtiapine 25 MG TAB PO SCH (21:00)
[2023-08-29] MEDS: MIRTAZAPINE 45 MG TABLET PO SCH (21:43)
[2023-08-29] MEDS: ACETAMINOPHEN TAB 325 MG TAB PO PRN (23:58)
[2023-08-30] MEDS: LEVOTHYROXINE 50 MCG TAB PO SCH (06:21)
[2023-08-30] MEDS: MULTIVITAMINS, THERA 1 EACH TAB PO SCH (08:49)
[2023-08-30] MEDS: SERTRALINE 50 MG TAB PO SCH (08:49)
[2023-08-30] MEDS: cloNIDine HCL 0.1 MG TAB PO SCH (08:49)
[2023-08-30] MEDS: THIAMINE 100 MG TAB PO SCH (08:49)
[2023-08-30] MEDS: FOLIC ACID 1 MG TAB PO SCH (08:49)
[2023-08-30] MEDS: RIFAXIMIN 550 MG TABLET PO SCH (08:49)
[2023-08-30] MEDS: ASPIRIN 81 MG PO SCH (08:49)
[2023-08-30] MEDS: busPIRone HCl 5 MG TAB PO SCH (08:49)
[2023-08-30] MEDS: TOPIRAMATE 25 MG TAB PO SCH (08:50)
[2023-08-30] MEDS: BUMETANIDE 0.5 MG TABLET PO SCH (08:50)
[2023-08-30] MEDS: PROPRANOLOL LA 60 MG CAP.SA.24H PO SCH (08:50)
[2023-08-30] MEDS: LACTULOSE 20 GM/30 ML CUP PO SCH ×2 (08:50→15:47)
[2023-08-30] MEDS: ACETAMINOPHEN TAB 325 MG TAB PO PRN (11:39)
--- NOTE | 2023-08-30 12:06 | P.PN ---
Subjective Progress Note Date: 08/30/23 Patient is a 53 yo CF with a hx of severe mitral regurgitation, seizure, alcohol withdrawal related seizures, and chronic alcoholic liver disease who was brought into the emergency department due to suicidal ideation. The emergency department she underwent an extensive evaluation. Initial vital signs were within normal limits. Initial laboratory analysis included CBC, CMP, magnesium, urine drug screen, and alcohol level which were remarkable for magnesium 2.5, AST 61, ALT 48, alkaline phosphatase 234, and serum alcohol level 408. She was placed in observation to allow for clearance of her alcohol before evaluation by psych. The morning after admission she had increased confusion and her ammonia was slightly elevated at 42. Her lactulose was increased. She was requiring IV Ativan for alcohol withdrawal, no longer requiring. Patient is medically stable for transfer to inpatient psych. Patient seen and examined at bedside. Denies any chest pain or shortness of breath. Denies any new complaints. Vital signs reviewed General: nontoxic, no distress, appears at stated age Cardiovascular: S1S2 reg, no murmur, positive posterior tibial pulse bilateral, Lungs: CTA bilateral, no rhonchi, no rales , no accessory muscle use Abdominal: soft, nontender to palpation, no guarding, no appreciable organomegaly Ext: no gross muscle atrophy, no edema b/l lower extremities, no contractures Neuro: CN II-XI grossly intact, no focal neuro deficits Psych: Alert, oriented , cooperative Assessment/Plan: Metabolic encepahlopathy, likely due to alcohol withdrawal and elevated ammonia , resolved Alcohol intoxication with hx of alcoholism, resolved Suicidal ideation Cirrhosis, 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 Chronic: GERD Alcoholic liver disease Seizure disorder Mitral regurgitation Bulimia Anxiety/depression History of suicide attempt per prior records Hypertrophic obstructive cardiomyopathy-Echocardiogram from reviewed with hypertrophic sub-aortic stenosis and turbulent flow across the left ventricular outflow tract as well as moderate to severe mitral regurgitation Hx of IVDA Imaging: None new Data Review: No new labs DVT prophylaxis: SCDs Anticipated discharge date: Pending psych bed availability Anticipated discharge place: Inpatient psych Objective - Vital Signs Vital signs: Vital Signs Temp 98.8 F 08/30/23 07:06 Pulse 79 08/30/23 07:06 Resp 18 08/30/23 07:06 BP 122/83 08/30/23 07:06 Pulse Ox 98 08/30/23 07:06 FiO2 Intake & Output 08/29/23 08/30/23 08/30/23 18:59 06:59 18:59 Other: Voiding Method Toilet # Voids 24 - Labs CBC & Chem 7: 08/28/23 07:01 08/29/23 08:43
[2023-08-30 14:02] VITALS: BP 126/81; PULSE 89; RESP 17; TEMP 97.5
--- NOTE | 2023-08-30 16:23 | P.DS ---
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 Thrombocytopenia GERD Alcoholic liver disease Seizure disorder Mitral regurgitation Bulimia Anxiety/depression History of suicide attempt per prior records Hypertrophic obstructive cardiomyopathy-Echocardiogram from reviewed with hypertrophic sub-aortic stenosis and turbulent flow across the left ventricular outflow tract as well as moderate to severe mitral regurgitation Hx of IVDA Hospital Course: Patient is a 53 yo CF with a hx of severe mitral regurgitation, seizure, alcohol withdrawal related seizures, and chronic alcoholic liver disease who was brought into the emergency department due to suicidal ideation. The emergency department she underwent an extensive evaluation. Initial vital signs were within normal limits. Initial laboratory analysis included CBC, CMP, magnesium, urine drug screen, and alcohol level which were remarkable for magnesium 2.5, AST 61, ALT 48, alkaline phosphatase 234, and serum alcohol level 408. She was placed in observation to allow for clearance of her alcohol before evaluation by psych. The morning after admission she had increased confusion and her ammonia was slightly elevated at 42. Her lactulose was increased. She was requiring IV Ativan for alcohol withdrawal, no longer requiring. Encephalopathy has improved. Psychiatry evaluated the patient, will need inpatient psychiatry due to intentional medicine overdose. Patient seen and examined at bedside.[] Vital signs reviewed and stable. General: nontoxic, no distress, appears at stated age Cardiovascular: S1S2 reg, no murmur, positive posterior tibial pulse bilateral, Lungs: CTA bilateral, no rhonchi, no rales , no accessory muscle use Abdominal: soft, nontender to palpation, no guarding, no appreciable organomegaly Ext: no gross muscle atrophy, no edema b/l lower extremities, no contractures Neuro: CN II-XI grossly intact, no focal neuro deficits Psych: Alert, oriented , cooperative A total of 33 minutes of time were spent preparing this complex discharge summary. Patient was discharged on 08/30/23 at 1621. Patient Condition at Discharge: Fair Plan - Discharge Summary Discharge Rx Participant: No New Discharge Prescriptions: New Lactulose [Cephulac] 30 gm PO TID ml bisacodyL [Dulcolax] 5 mg PO DAILY PRN tab PRN Reason: Constipation Folic Acid 1 mg PO DAILY tab QUEtiapine [SEROquel] 25 mg PO TID PRN tab PRN Reason: Agitation Or Acute Psychosis Thiamine [Vitamin B-1] 100 mg PO DAILY tab Multivitamins, Thera [Multivitamin (formulary)] 1 each PO DAILY tab QUEtiapine [SEROquel] 25 mg PO HS tab Acetaminophen Tab [Tylenol] 650 mg PO Q6HR PRN tab PRN Reason: Mild Pain Or Fever > 100.5 Sertraline [Zoloft] 50 mg PO DAILY tab Continue Buprenorphine/Naloxone 8Mg/2Mg [Suboxone 8-2Mg Film] 1 film SL TID Propranolol LA [Inderal LA] 60 mg PO DAILY Aspirin EC [Ecotrin Low Dose] 81 mg PO DAILY #30 tab Levothyroxine Sodium [Synthroid] 50 mcg PO DAILY Topiramate 50 mg PO BID Bumetanide [BUMEX] 0.5 mg PO DAILY Mirtazapine [Remeron] 45 mg PO HS busPIRone HCL 15 mg PO BID Rifaximin [Xifaxan] 550 mg PO BID Discontinued chlorproMAZINE [Thorazine] 25 mg PO HS Midodrine [ProAmatine] 5 mg PO TID tiZANidine [Zanaflex] 8 mg PO Q6H PRN PRN Reason: Muscle Spasm Lactulose 20 gm PO BID Discharge Medication List Bumetanide [BUMEX] 0.5 mg PO DAILY 07/28/22 [History] Buprenorphine/Naloxone 8Mg/2Mg [Suboxone 8-2Mg Film] 1 film SL TID 07/28/22 [History] Mirtazapine [Remeron] 45 mg PO HS 07/28/22 [History] Propranolol LA [Inderal LA] 60 mg PO DAILY 07/28/22 [History] busPIRone HCL 15 mg PO BID 07/28/22 [History] Aspirin EC [Ecotrin Low Dose] 81 mg PO DAILY #30 tab 03/12/23 [Rx] Levothyroxine Sodium [Synthroid] 50 mcg PO DAILY 06/25/23 [History] Rifaximin [Xifaxan] 550 mg PO BID 06/25/23 [History] Topiramate 50 mg PO BID 08/27/23 [History] Acetaminophen Tab [Tylenol] 650 mg PO Q6HR PRN tab 08/30/23 [Rx] Folic Acid 1 mg PO DAILY tab 08/30/23 [Rx] Lactulose [Cephulac] 30 gm PO TID ml 08/30/23 [Rx] Multivitamins, Thera [Multivitamin (formulary)] 1 each PO DAILY tab 08/30/23 [Rx] QUEtiapine [SEROquel] 25 mg PO HS tab 08/30/23 [Rx] QUEtiapine [SEROquel] 25 mg PO TID PRN tab 08/30/23 [Rx] Sertraline [Zoloft] 50 mg PO DAILY tab 08/30/23 [Rx] Thiamine [Vitamin B-1] 100 mg PO DAILY tab 08/30/23 [Rx] bisacodyL [Dulcolax] 5 mg PO DAILY PRN tab 08/30/23 [Rx] Follow up Appointment(s)/Referral(s): None,Stated [Primary Care Provider] - 1-2 days Patient Instructions/Handouts: Seizure/Epilepsy Discharge Instructions & Follow-Up, Alcohol Intoxication (DC), Abuse of Alcohol (DC) Activity/Diet/Wound Care/Special Instructions: Please see psychiatry. Discharge Disposition: TRANSFER TO PSYCH HOSP/UNIT
[2023-08-30] MEDS ORDERED: NICOTINE 14MG/24HR PATCH TRANSDERM STA (18:03)
[2023-08-31] MEDS ORDERED: cloNIDine HCL 0.1 MG TAB PO SCH (09:00)
== END 2023-08-30 18:50 | DRG 896 ==
LOC: EC 12:11 → 4SSUR 14:27 → INTOOBSV 14:27 → 4SSUR 16:33 → OBSVTOIN 08-29 12:05
PROVIDERS: ADMIT Internal Medicine; ATTEND Internal Medicine
DX: F10.139 Alcohol abuse with withdrawal, unspecified (principal); G93.41 Metabolic encephalopathy; R45.851 Suicidal ideations; E72.20 Disorder of urea cycle metabolism, unspecified; F50.2 Bulimia nervosa; I42.1 Obstructive hypertrophic cardiomyopathy; F11.20 Opioid dependence, uncomplicated; F10.129 Alcohol abuse with intoxication, unspecified; F32.9 Major depressive disorder, single episode, unspecified; T42.8X2A Poisoning by antiparkinsonism drugs and other central muscle-tone depressants, intentional self-harm, initial encounter; Y90.8 Blood alcohol level of 240 mg/100 ml or more; K70.30 Alcoholic cirrhosis of liver without ascites; D69.6 Thrombocytopenia, unspecified; K21.9 Gastro-esophageal reflux disease without esophagitis; G40.909 Epilepsy, unspecified, not intractable, without status epilepticus; I34.0 Nonrheumatic mitral (valve) insufficiency; Z68.22 Body mass index [BMI] 22.0-22.9, adult; F41.0 Panic disorder [episodic paroxysmal anxiety]; I10 Essential (primary) hypertension; F17.200 Nicotine dependence, unspecified, uncomplicated; Z11.52 Encounter for screening for COVID-19; Z91.51 Personal history of suicidal behavior; Z88.0 Allergy status to penicillin; Z79.899 Other long term (current) drug therapy; Z79.890 Hormone replacement therapy; Z79.82 Long term (current) use of aspirin
CPT/HCPCS: 36415; 70450; 80053; 80306; 80320; 82140; 83735; 85025; 85610; 87635; 96360; 96361; 99285

== ENCOUNTER 2024-04-14 08:45 | Inpatient (IN) | payer MEDICARE, OTHER ==
[2024-04-14 09:04] LABS: Glucose,Whole Blood 105 mg/dL (70-110)
--- NOTE | 2024-04-14 09:17 | ED ---
Altered Mental Status HPI - General Chief Complaint: Altered Mental Status Stated Complaint: ETOH Time Seen by Provider: 04/14/24 08:53 Source: EMS, RN notes reviewed Mode of arrival: EMS Limitations: altered mental status - History of Present Illness Initial Comments: This is a 53-year-old female who presents to the emergency department for altered mental status. Patient was found facedown with her head in a trash can on the floor in her house by family members. She was not very responsive at that time. Family last saw her at sometime last evening, at which time she was at her baseline and are unsure how long she has been on the ground. She was found to be surrounded by vomit as well. This has happened to the patient the past after she consumes large amounts of alcohol or other controlled substances. Patient is currently alert but very agitated and unwilling to provide any information on her own. MD Complaint: altered mental status - Related Data Home Medications Medication Instructions Recorded Confirmed Bumetanide [BUMEX] 0.5 mg PO DAILY 07/28/22 04/14/24 Buprenorphine/Naloxone 8Mg/2Mg 1 film SL TID 07/28/22 04/14/24 [Suboxone 8-2Mg Film] Mirtazapine [Remeron] 45 mg PO HS 07/28/22 04/14/24 Propranolol LA [Inderal LA] 60 mg PO HS 07/28/22 04/14/24 busPIRone HCL 15 mg PO BID 07/28/22 04/14/24 Levothyroxine Sodium [Synthroid] 50 mcg PO DAILY 06/25/23 04/14/24 Rifaximin [Xifaxan] 550 mg PO BID 06/25/23 04/14/24 Topiramate 50 mg PO BID 08/27/23 04/14/24 Baclofen [Lioresal] 10 mg PO HS 04/14/24 04/14/24 Lactulose [Cephulac] 10 gm PO TID 04/14/24 04/14/24 Midodrine [ProAmatine] 5 mg PO TID-W/MEALS 04/14/24 04/14/24 Spironolactone [Aldactone] 25 mg PO DIRECTED 04/14/24 04/14/24 chlorproMAZINE [Thorazine] 25 mg PO HS 04/14/24 04/14/24 hydrOXYzine HCL [Atarax] 100 mg PO Q6H PRN 04/14/24 04/14/24 levETIRAcetam [Keppra] 500 mg PO BID 04/14/24 04/14/24 tiZANidine [Zanaflex] 4 mg PO HS 04/14/24 04/14/24 Allergies Allergy/AdvReac Type Severity Reaction Status Date / Time Penicillins Allergy Severe Rash/Hives Verified 04/14/24 09:10 Review of Systems ROS Statement: Those systems with pertinent positive or pertinent negative responses have been documented in the HPI. ROS Other: All systems not noted in ROS Statement are negative. 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 "IN OCTOBER DRANK RUBBING ALCOHOL". FAMILT STATED PT TAKES SUBOXONE TO HELP HER NOT DRINK AND FOR PAIN IN LEGS/KNEES. Hep C Positive History of Any Multi-Drug Resistant Organisms: MRSA Date of last positivie culture/infection: 04/20/16 MDRO Source:: SPUTUM Past Surgical History: Hernia Repair, Uterine Ablation Additional Past Surgical History / Comment(s): NOVOSURE ENDOMETRIAL ABLATION. PT HAD "THROAT BANDING DONE" Past Anesthesia/Blood Transfusion Reactions: No Reported Reaction Additional Past Anesthesia/Blood Transfusion Reaction / Comment(s): Pt received previous blood transfusion at [facility] per past medical record. Past Psychological History: Anxiety, Bipolar, Depression, Panic Disorder Smoking Status: Current every day smoker Past Alcohol Use History: Abuse, Daily Past Drug Use History: Cocaine, Heroin, IV Drug Use - Past Family History Father History Unknown: Yes Family Medical History: No Reported History Mother Family Medical History: Cancer Additional Family Medical History / Comment(s): COLON AND LUNG CANCER- AT AGE 50 General Exam Limitations: altered mental status General appearance: alert Head exam: Present: atraumatic, normocephalic, normal inspection Eye exam: Present: normal appearance, PERRL, EOMI. Absent: scleral icterus, conjunctival injection, periorbital swelling Respiratory exam: Present: normal lung sounds bilaterally. Absent: respiratory distress, wheezes, rales, rhonchi, stridor Cardiovascular Exam: Present: normal rhythm, tachycardia GI/Abdominal exam: Present: soft, normal bowel sounds. Absent: distended, tenderness Neurological exam: Present: alert Skin exam: Present: warm, dry Course Vital Signs 04/14/24 04/14/24 04/14/24 09:01 10:15 11:00 Temperature 98.8 F Pulse Rate 126 H 123 H 121 H Respiratory 22 22 22 Rate Blood Pressure 146/101 178/111 175/107 O2 Sat by Pulse 98 99 98 Oximetry 04/14/24 04/14/24 04/14/24 12:00 13:05 15:45 Temperature 99.9 F H Pulse Rate 93 117 H 117 H Respiratory 22 16 22 Rate Blood Pressure 178/109 186/111 O2 Sat by Pulse 98 96 Oximetry Medical Decision Making - Medical Decision Making This is a 53 year old female who presents to the emergency department for altered mental status. Was pt. sent in by a medical professional or institution? @ -No Did you speak to anyone other than the patient for history? @ -EMS provided all of the history Did you review nursing and triage notes? @ -Yes, and I agree, it is accurate with regards to the patient's symptoms. Were old charts reviewed? @ -No Differential Diagnosis? @ -Differential Altered Mental Status: Hypoglycemia, DKA, hypercapnia, ETOH, overdose, CO poisoning, trauma, myxedema coma, HTN encephalopathy, infection, encephalitis, psychosis, intercranial hemorrhage, hepatic encephalopathy, meningitis, CVA, this is not meant to be an all-inclusive list EKG interpreted by me (3pts min.)? @ -EKG interpreted by me demonstrating the following: Sinus rhythm. Ventricular rate 120 bpm, QRS duration 87 ms, QTc 403 ms. X-rays interpreted by me (1pt min.)? @ -Chest x-ray obtained, my interpretation identifies no localized consolidations or infiltrates. CT interpreted by me (1pt min.)? @ -Computed tomography scan of the brain and c-spine obtained. My interpretation identifies no evidence of an acute intracranial hemorrhage, skull fracture, or cervical spine fracture. CT scan of the facial bones obtained. My interpretation identifies no acute fractures. U/S interpreted by me (1pt. min.)? @ -Not obtained What testing was considered but not performed? (CT, X-rays, U/S, labs)? Why? @ -None What meds were considered but not given? Why? @ -None Did you discuss the management of the patient with other professionals? @ -Yes, Dr. Zapien, who accepts the patient for admission. Did you reconcile home meds? @ -Yes Was smoking cessation discussed for >3mins.? @ -No Was critical care preformed (if so, how long)? @ -No Were there social determinants of health that impacted care today? How? (Homelessness, low income, unemployed, alcoholism, drug addiction, transportation, low edu. Level, literacy, decrease access to med. care, custodial, rehab)? @ -Drug addiction and alcoholism, contributing to recurrent visits for in toxication and altered mental status. Potentially contributing to today's presentation. Was there de-escalation of care discussed even if they declined? (Discuss DNR or withdrawal of care, Hospice)? @ -No What co-morbidities impacted this encounter? (DM, HTN, Smoking, COPD, CAD, Cancer, CVA, Hep., AIDS, mental health diagnosis, sleep apnea, morbid obesity)? @ -Drug addiction, alcoholism, seizure disorder Was patient admitted / discharged? @ -Admitted. Lab work demonstrates leukocytosis. Patient also has an LEOPOLDO with a creatinine of 1.35 and GFR of 45. Lactic acid elevated at 6.9. Creatinine kinase elevated at 708 and troponin elevated at 1.5. Patient typically has elevated troponins when presenting in an altered state. Urinalysis is suggestive of infection and urine was sent for culture. Urine drug screen and alcohol level negative. CT scan of the brain/C-spine and facial bones and chest x-ray obtained revealing no acute findings. Patient remained alert but was very agitated in the emergency department. Symptoms may be related to alcohol withdrawals, which she does have a history of. Patient started on IV fluids and CIWA protocol was initiated. Blood cultures were obtained as well and she was started on ceftriaxone for possible UTI. Patient admitted to medicine for altered mental status. Consult placed for cardiology regarding elevated troponin and serial troponins were ordered. Consult placed for neurology regarding altered mental status. Undiagnosed new problem with uncertain prognosis? @ -None Drug Therapy requiring intensive monitoring for toxicity (Heparin, Nitro, Insulin, Cardizem)? @ -None Were any procedures done? @ -None Diagnosis/symptom? @ -Altered mental status Acute, or Chronic, or Acute on Chronic? @ -Acute Uncomplicated (without systemic symptoms) or Complicated (systemic symptoms)? @ -Complicated Side effects of treatment? @ -None Exacerbation, Progression, or Severe Exacerbation] @ -Not applicable Poses a threat to life or bodily function? @ -Yes This case was discussed in detail with the attending ED physician, Dr. Jerilyn banegas. Presentation, findings, and treatment plan discussed in detail as well. - Lab Data Result diagrams: 04/14/24 09:15 04/14/24 09:15 Lab Results 04/14/24 04/14/24 04/14/24 Range/Units 09:03 09:15 09:15 WBC 13.0 H (3.8-10.6) k/uL RBC 5.52 H (3.80-5.40) m/uL Hgb 17.0 H (11.4-16.0) gm/dL Hct 50.7 H (34.0-46.0) % MCV 91.8 (80.0-100.0) fL MCH 30.8 (25.0-35.0) pg MCHC 33.6 (31.0-37.0) g/dL RDW 15.4 (11.5-15.5) % Plt Count (150-450) k/uL MPV 9.2 Neutrophils % 85 % Lymphocytes % 7 % Monocytes % 7 % Eosinophils % 0 % Basophils % 0 % Neutrophils # 11.1 H (1.3-7.7) k/uL Lymphocytes # 0.9 L (1.0-4.8) k/uL Monocytes # 0.8 (0-1.0) k/uL Eosinophils # 0.0 (0-0.7) k/uL Basophils # 0.0 (0-0.2) k/uL Manual Slide Review Performed Poikilocytosis Slight PT 11.7 (10.0-12.5) sec INR 1.1 (<1.2) APTT 26.9 (22.0-30.0) sec Sodium (137-145) mmol/L Potassium (3.5-5.1) mmol/L Chloride (98-107) mmol/L Carbon Dioxide (22-30) mmol/L Anion Gap mmol/L BUN (7-17) mg/dL Creatinine (0.52-1.04) mg/dL Est GFR (CKD-EPI)AfAm (>60 ml/min/1.73 sqM) Est GFR (CKD-EPI)NonAf (>60 ml/min/1.73 sqM) Glucose (74-99) mg/dL POC Glucose (mg/dL) 105 (70-110) mg/dL POC Glu Supervisor Felling Bucking ID WaNessa pisano Lactic Ac Sepsis Rflx Plasma Lactic Acid Mariusz (0.7-2.0) mmol/L Calcium (8.4-10.2) mg/dL Total Bilirubin (0.2-1.3) mg/dL AST (14-36) U/L ALT (4-34) U/L Alkaline Phosphatase (38-126) U/L Creatine Kinase (30-135) U/L Troponin I (0.000-0.034) ng/mL Total Protein (6.3-8.2) g/dL Albumin (3.5-5.0) g/dL Urine Color Urine Appearance (Clear) Urine pH (5.0-8.0) Ur Specific Heath (1.001-1.035) Urine Protein (Negative) Urine Glucose (UA) (Negative) Urine Ketones (Negative) Urine Blood (Negative) Urine Nitrite (Negative) Urine Bilirubin (Negative) Urine Urobilinogen (<2.0) mg/dL Ur Leukocyte Esterase (Negative) Urine RBC (0-5) /hpf Urine WBC (0-5) /hpf Urine Bacteria (None) /hpf Hyaline Casts (0-2) /lpf Urine Mucus (None) /hpf Urine Yeast (Budding) (None) /hpf Urine Opiates Screen (NotDetected) Ur Oxycodone Screen (NotDetected) Urine Methadone Screen (NotDetected) Ur Barbiturates Screen (NotDetected) U Tricyclic Antidepress (NotDetected) Ur Phencyclidine Scrn (NotDetected) Ur Amphetamines Screen (NotDetected) U Methamphetamines Scrn (NotDetected) U Benzodiazepines Scrn (NotDetected) Urine Cocaine Screen (NotDetected) U Marijuana (THC) Screen (NotDetected) Serum Alcohol mg/dL 04/14/24 04/14/24 04/14/24 Range/Units 09:15 09:15 09:15 WBC (3.8-10.6) k/uL RBC (3.80-5.40) m/uL Hgb (11.4-16.0) gm/dL Hct (34.0-46.0) % MCV (80.0-100.0) fL MCH (25.0-35.0) pg MCHC (31.0-37.0) g/dL RDW (11.5-15.5) % Plt Count (150-450) k/uL MPV Neutrophils % % Lymphocytes % % Monocytes % % Eosinophils % % Basophils % % Neutrophils # (1.3-7.7) k/uL Lymphocytes # (1.0-4.8) k/uL Monocytes # (0-1.0) k/uL Eosinophils # (0-0.7) k/uL Basophils # (0-0.2) k/uL Manual Slide Review Poikilocytosis PT (10.0-12.5) sec INR (<1.2) APTT (22.0-30.0) sec Sodium 145 (137-145) mmol/L Potassium 4.0 (3.5-5.1) mmol/L Chloride 110 H (98-107) mmol/L Carbon Dioxide 19 L (22-30) mmol/L Anion Gap 16 mmol/L BUN 17 (7-17) mg/dL Creatinine 1.35 H (0.52-1.04) mg/dL Est GFR (CKD-EPI)AfAm 52 (>60 ml/min/1.73 sqM) Est GFR (CKD-EPI)NonAf 45 (>60 ml/min/1.73 sqM) Glucose 117 H (74-99) mg/dL POC Glucose (mg/dL) (70-110) mg/dL POC Glu Supervisor Felling Bucking ID Lactic Ac Sepsis Rflx Plasma Lactic Acid Mariusz (0.7-2.0) mmol/L Calcium 10.9 H (8.4-10.2) mg/dL Total Bilirubin 2.5 H (0.2-1.3) mg/dL AST 75 H (14-36) U/L ALT 47 H (4-34) U/L Alkaline Phosphatase 152 H (38-126) U/L Creatine Kinase 708 H (30-135) U/L Troponin I 1.500 H* (0.000-0.034) ng/mL Total Protein 8.3 H (6.3-8.2) g/dL Albumin 4.9 (3.5-5.0) g/dL Urine Color Yellow Urine Appearance Cloudy H (Clear) Urine pH 6.0 (5.0-8.0) Ur Specific Heath 1.024 (1.001-1.035) Urine Protein 3+ H (Negative) Urine Glucose (UA) Negative (Negative) Urine Ketones Trace H (Negative) Urine Blood Moderate H (Negative) Urine Nitrite Negative (Negative) Urine Bilirubin 1+ H (Negative) Urine Urobilinogen <2.0 (<2.0) mg/dL Ur Leukocyte Esterase Moderate H (Negative) Urine RBC 14 H (0-5) /hpf Urine WBC 79 H (0-5) /hpf Urine Bacteria Occasional H (None) /hpf Hyaline Casts 9 H (0-2) /lpf Urine Mucus Occasional H (None) /hpf Urine Yeast (Budding) Many H (None) /hpf Urine Opiates Screen Not Detected (NotDetected) Ur Oxycodone Screen Not Detected (NotDetected) Urine Methadone Screen Not Detected (NotDetected) Ur Barbiturates Screen Not Detected (NotDetected) U Tricyclic Antidepress Not Detected (NotDetected) Ur Phencyclidine Scrn Not Detected (NotDetected) Ur Amphetamines Screen Not Detected (NotDetected) U Methamphetamines Scrn Not Detected (NotDetected) U Benzodiazepines Scrn Not Detected (NotDetected) Urine Cocaine Screen Not Detected (NotDetected) U Marijuana (THC) Screen Not Detected (NotDetected) Serum Alcohol <10 mg/dL 04/14/24 04/14/24 Range/Units 09:15 10:01 WBC (3.8-10.6) k/uL RBC (3.80-5.40) m/uL Hgb (11.4-16.0) gm/dL Hct (34.0-46.0) % MCV (80.0-100.0) fL MCH (25.0-35.0) pg MCHC (31.0-37.0) g/dL RDW (11.5-15.5) % Plt Count (150-450) k/uL MPV Neutrophils % % Lymphocytes % % Monocytes % % Eosinophils % % Basophils % % Neutrophils # (1.3-7.7) k/uL Lymphocytes # (1.0-4.8) k/uL Monocytes # (0-1.0) k/uL Eosinophils # (0-0.7) k/uL Basophils # (0-0.2) k/uL Manual Slide Review Poikilocytosis PT (10.0-12.5) sec INR (<1.2) APTT (22.0-30.0) sec Sodium (137-145) mmol/L Potassium (3.5-5.1) mmol/L Chloride (98-107) mmol/L Carbon Dioxide (22-30) mmol/L Anion Gap mmol/L BUN (7-17) mg/dL Creatinine (0.52-1.04) mg/dL Est GFR (CKD-EPI)AfAm (>60 ml/min/1.73 sqM) Est GFR (CKD-EPI)NonAf (>60 ml/min/1.73 sqM) Glucose (74-99) mg/dL POC Glucose (mg/dL) (70-110) mg/dL POC Glu Supervisor Felling Bucking ID Lactic Ac Sepsis Rflx Y Plasma Lactic Acid Mariusz 6.9 H* (0.7-2.0) mmol/L Calcium (8.4-10.2) mg/dL Total Bilirubin (0.2-1.3) mg/dL AST (14-36) U/L ALT (4-34) U/L Alkaline Phosphatase (38-126) U/L Creatine Kinase (30-135) U/L Troponin I (0.000-0.034) ng/mL Total Protein (6.3-8.2) g/dL Albumin (3.5-5.0) g/dL Urine Color Urine Appearance (Clear) Urine pH (5.0-8.0) Ur Specific Heath (1.001-1.035) Urine Protein (Negative) Urine Glucose (UA) (Negative) Urine Ketones (Negative) Urine Blood (Negative) Urine Nitrite (Negative) Urine Bilirubin (Negative) Urine Urobilinogen (<2.0) mg/dL Ur Leukocyte Esterase (Negative) Urine RBC (0-5) /hpf Urine WBC (0-5) /hpf Urine Bacteria (None) /hpf Hyaline Casts (0-2) /lpf Urine Mucus (None) /hpf Urine Yeast (Budding) (None) /hpf Urine Opiates Screen (NotDetected) Ur Oxycodone Screen (NotDetected) Urine Methadone Screen (NotDetected) Ur Barbiturates Screen (NotDetected) U Tricyclic Antidepress (NotDetected) Ur Phencyclidine Scrn (NotDetected) Ur Amphetamines Screen (NotDetected) U Methamphetamines Scrn (NotDetected) U Benzodiazepines Scrn (NotDetected) Urine Cocaine Screen (NotDetected) U Marijuana (THC) Screen (NotDetected) Serum Alcohol mg/dL - Radiology Data Radiology results: report reviewed, image reviewed Disposition Clinical Impression: AMS (altered mental status), Lactic acid acidosis, UTI (urinary tract infection) Disposition: ADMITTED IP TO THIS HOSP
[2024-04-14] MEDS: SODIUM CHLORIDE 0.9% 1,000 ML IV ONE (09:21)
[2024-04-14] MEDS: LORazepam 2 MG/ML INJ IV STA (09:21)
[2024-04-14] MEDS: ONDANSETRON 4 MG/2 ML VIAL IVP STA (09:22)
[2024-04-14 09:35] LABS: INR 1.1 (<1.2)
[2024-04-14 09:36] LABS: Partial Thromboplastin Time 26.9 sec (22.0-30.0); Prothrombin Time 11.7 sec (10.0-12.5)
[2024-04-14 09:46] LABS: ALT 47 U/L (4-34); AST 75 U/L (14-36); African American GFR (CKD) 52 (>60 ml/min/1.73 sqM); Albumin 4.9 g/dL (3.5-5.0); Alcohol <10 mg/dL; Alkaline Phosphatase 152 U/L (38-126); Anion Gap 16 mmol/L; Blood Urea Nitrogen 17 mg/dL (7-17); Calcium 10.9 mg/dL (8.4-10.2); Carbon Dioxide 19 mmol/L (22-30); Chloride 110 mmol/L (98-107); Creatine Kinase 708 U/L (30-135); Glucose 117 mg/dL (74-99); Non-African American GFR(CKD) 45 (>60 ml/min/1.73 sqM); Sodium 145 mmol/L (137-145); Total Bilirubin 2.5 mg/dL (0.2-1.3); Total Protein 8.3 g/dL (6.3-8.2)
[2024-04-14 09:51] LABS: Appearance,Urine Cloudy (Clear); Bacteria,Urine Occasional /hpf; Bilirubin,Urine 1+ (Negative); Blood,Urine Moderate (Negative); Budding Yeast,Urine Many /hpf; Color,Urine Yellow; Glucose,Urine (UA) Negative (Negative); Hyaline Casts,Urine 9 /lpf (0-2); Ketones,Urine Trace (Negative); Leukocyte Esterase,Urine Moderate (Negative); Mucus,Urine Occasional /hpf; Nitrite,Urine Negative (Negative); Protein,Urine 3+ (Negative); RBC,Urine 14 /hpf (0-5); Specific Gravity,Urine 1.024 (1.001-1.035); Urobilinogen,Urine <2.0 mg/dL (<2.0); WBC,Urine 79 /hpf (0-5)
--- NOTE | 2024-04-14 10:07 | CT ---
EXAMINATION TYPE: CT brain michael méndez con DATE OF EXAM: 04/14/2024 COMPARISON: 08/28/2023 HISTORY: Fall. History of seizures and ETOH CT DLP: 1030.[address] of the brain was performed. The ventricles, basal cisterns and sulci overlying the cerebral convexities demonstrate mild enlargem ent. There is no evidence for intracranial hemorrhage or sulcal effacement. There is decreased attenuatio n about the periventricular white matter and deep white matter of both cerebral hemispheres, compatib le with chronic small vessel ischemia. No mass effects are seen. If symptoms persist consider MRI. Osseous calvarium is intact. IMPRESSION: 1. Age related atrophic and chronic small vessel ischemic change without acute intracranial process seen at this time. CT Cervical Spine: Unenhanced CT of the cervical spine was performed with bone and soft tissue window settings submitted . Coronal and sagittal reconstruction is obtained. There is normal alignment and prevertebral soft tissues. No evidence for acute cervical fracture . Scattered degenerative disc disease and spondylosis. Biapical scarring. IMPRESSION: 1. No evidence for acute fracture or subluxation of the cervical spine.
[2024-04-14 10:11] LABS: Basophils % (A) 0 %; Eosinophils % (A) 0 %; HCT 50.7 % (34.0-46.0); Lymphocytes # (A) 0.9 k/uL (1.0-4.8); Lymphocytes % (A) 7 %; MCH 30.8 pg (25.0-35.0); MCHC 33.6 g/dL (31.0-37.0); MCV 91.8 fL (80.0-100.0); Mean Platelet Volume 9.2; Monocytes # (A) 0.8 k/uL (0-1.0); Monocytes % (A) 7 %; Neutrophils # (A) 11.1 k/uL (1.3-7.7); Neutrophils % (A) 85 %; Poikilocytosis Slight; RBC 5.52 m/uL (3.80-5.40); RDW 15.4 % (11.5-15.5)
--- NOTE | 2024-04-14 10:14 | CT ---
EXAMINATION TYPE: CT facial bones wo con DATE OF EXAM: 04/14/2024 COMPARISON: 05/13/2017 HISTORY: Fall. History of seizures and ETOH CT DLP: 1030.[address] of the facial bones was performed in the axial and coronal planes. Bone and soft tissu e window settings are submitted. No significant soft tissue swelling is appreciated. I do not see evidence for displaced facial bone fracture or depressed facial bone fracture. The globes are intact. Mucosal thickening maxillary sinuses, various ethmoid air cells and right frontal sinus. IMPRESSION: 1. No evidence for depressed or displaced facial bone fracture.
[2024-04-14 10:24] LABS: Amphetamine Screen,Urine Not Detected (NotDetected); Barbiturate Screen,Urine Not Detected (NotDetected); Benzodiazepines Screen,Urine Not Detected (NotDetected); Cocaine Screen,Urine Not Detected (NotDetected); Methadone Screen, Urine Not Detected (NotDetected); Opiate Screen,Urine Not Detected (NotDetected); Oxycodone Screen, Urine Not Detected (NotDetected); Phencyclidine Screen,Urine Not Detected (NotDetected); Tricyclic Antidepressant,Urine Not Detected (NotDetected); Urn Cannabinoid Scrn Not Detected (NotDetected)
[2024-04-14] MEDS: SODIUM CHLORIDE 0.9% 1,000 ML IV STA ×2 (10:32→12:00)
--- NOTE | 2024-04-14 10:40 | XR ---
EXAMINATION TYPE: XR chest 1V DATE OF EXAM: 04/14/2024 HISTORY: Shortness of breath. COMPARISON: 06/26/2023 TECHNIQUE: Single view of the chest is submitted. FINDINGS: Demonstrated are scattered senescent parenchymal change. There is no evidence for focal infiltrate. The heart is stable. Hilar and mediastinal structures are within normal limits. Degenerative changes are seen of the dorsal spine. IMPRESSION: 1. Chronic changes without evidence for acute pulmonary disease.
[2024-04-14] MEDS ORDERED: LORazepam 2 MG/ML INJ IV PRN ×2 (10:54)
[2024-04-14] MEDS ORDERED: ACETAMINOPHEN TAB 325 MG TAB PO PRN (10:57)
[2024-04-14] MEDS ORDERED: NALOXONE 0.4 MG/ML 1 ML VIAL IV PRN (10:57)
[2024-04-14] MEDS ORDERED: KETOROLAC 15 MG/ML 1 ML VIAL IVP PRN (10:57)
[2024-04-14] MEDS ORDERED: IBUPROFEN 400 MG TAB PO PRN (10:57)
[2024-04-14] MEDS: THIAMINE 100 MG/ML 2 ML VIAL IM STA (11:04)
[2024-04-14] MEDS: LORazepam 2 MG/ML INJ IV PRN ×2 (11:12→16:12)
[2024-04-14] MEDS: SODIUM CHLORIDE 0.9% 1,000 ML IV SCH (14:13)
[2024-04-14] MEDS: ACETAMINOPHEN SUPPOSITORY 650 MG SUPP RECTAL PRN (16:26)
[2024-04-14 17:13] LABS: ABG Base Excess -2.9 mmol/L; ABG HCO3 23 mmol/L (21-25); ABG PCO2 41 mmHg (35-45); ABG PH 7.35 (7.35-7.45); ABG PO2 92 mmHg (83-108); ABG TCO2 24 mmol/L (19-24); Allen Test Performed? Yes
[2024-04-14] MEDS: LABETALOL 5 MG/ML VIAL MDV IVP STA (17:41)
--- NOTE | 2024-04-14 18:35 | P.HPIM ---
History of Present Illness Patient is a 53 years old female with past medical history of alcoholic liver cirrhosis, depression history of suicidal ideation, history of seizure disorder, GERD, GI bleed, hepatitis C, history of heroin abuse. Patient was brought from home for altered mental status, patient was found by EMS on her face down on the trash, with strong odor and unkempt. Patient currently is very confused does not follow commands and cannot provide information She is lying in bed looks agitated and moving her extremity continuously especially the lower extremity, does not looks like a seizure. Also we checked her meningeal signs and looks absent Patient cannot take her oral medication and she was found hypertensive and tachycardic in the emergency room, propranolol on hold because of patient cannot take oral medication. IV Lopressor, clonidine patch and nitroglycerin patches provided also to help her with the blood pressure and heart rate. She is mildly tachypneic, she has low-grade temperature 99.9. WBC is slightly elevated at 13,000 hemoglobin 17, sample looks hemoconcentrated and expected to go down with fluid. Baseline WBC is 5-8000, and basal hemoglobin 11-15 Creatinine is mildly elevated 1.3. Lactic acid was significantly elevated 6.9 came down with IV fluid 2.5 Creatinine 1.3 with baseline 0.9-1.0, EKG showing sinus tachycardia at [address]-T changes Chest x-ray showing chronic changes CT of the facial with no facial bone fracture CT of the head and neck is negative for acute process Ammonia level was 10 which is low Troponin is elevated 1.5-1.6 and looks steady. ABG showed normal pH 7.35 and pCO2 41 Serum alcohol and urine drug screen are requested and they are elevated Patient was started on ceftriaxone, CIWA protocol and thiamine Also started on her home dose of IV Keppra. Also patient has wound on her left leg about 2 to 3 inches in diameter with no active bleeding Review of Systems ROS unobtainable: due to mental status Past Medical History Past Medical History: Eye Disorder, GERD/Reflux, GI Bleed, Liver Disease, Musculoskeletal Disorder, Neurologic Disorder, Seizure Disorder Additional Past Medical History / Comment(s): SEIZURE FROM ETOH, SHINGLE 6 YERAS AGO,MURMUR,TORN CATILAGE IN KNEES PER PTS MOTHER IN LAW-PT HAD LIVER FAILURE IN PAST, HEP C- NEVER TX (PAST HEROIN USE),AND BULEMIA.ANXIETY/ DEPRESSION, PAST SUICIDE ATTEMPS. "IN OCTOBER DRANK RUBBING ALCOHOL". FAMILT STATED PT TAKES SUBOXONE TO HELP HER NOT DRINK AND FOR PAIN IN LEGS/KNEES. Hep C Positive History of Any Multi-Drug Resistant Organisms: MRSA Date of last positivie culture/infection: 04/20/16 MDRO Source:: SPUTUM Past Surgical History: Hernia Repair, Uterine Ablation Additional Past Surgical History / Comment(s): NOVOSURE ENDOMETRIAL ABLATION. PT HAD "THROAT BANDING DONE" Past Anesthesia/Blood Transfusion Reactions: No Reported Reaction Additional Past Anesthesia/Blood Transfusion Reaction / Comment(s): Pt received previous blood transfusion at [facility] per past medical record. Past Psychological History: Anxiety, Bipolar, Depression, Panic Disorder Smoking Status: Current every day smoker Past Alcohol Use History: Abuse, Daily Past Drug Use History: Cocaine, Heroin, IV Drug Use - Past Family History Father History Unknown: Yes Family Medical History: No Reported History Mother Family Medical History: Cancer Additional Family Medical History / Comment(s): COLON AND LUNG CANCER- AT AGE 50 Medications and Allergies Home Medications Medication Instructions Recorded Confirmed Type RX: Bumetanide [BUMEX] 0.5 mg PO DAILY 07/28/22 04/14/24 History RX: Buprenorphine/Naloxone 8Mg/2Mg 1 film SL TID 07/28/22 04/14/24 History [Suboxone 8-2Mg Film] RX: Mirtazapine [Remeron] 45 mg PO HS 07/28/22 04/14/24 History RX: Propranolol LA [Inderal LA] 60 mg PO HS 07/28/22 04/14/24 History RX: busPIRone HCL 15 mg PO BID 07/28/22 04/14/24 History RX: Levothyroxine Sodium 50 mcg PO DAILY 06/25/23 04/14/24 History [Synthroid] RX: Rifaximin [Xifaxan] 550 mg PO BID 06/25/23 04/14/24 History RX: Topiramate 50 mg PO BID 08/27/23 04/14/24 History Baclofen [Lioresal] 10 mg PO HS 04/14/24 04/14/24 History Midodrine [ProAmatine] 5 mg PO TID-W/MEALS 04/14/24 04/14/24 History RX: Lactulose [Cephulac] 10 gm PO TID 04/14/24 04/14/24 History Spironolactone [Aldactone] 25 mg PO DIRECTED 04/14/24 04/14/24 History chlorproMAZINE [Thorazine] 25 mg PO HS 04/14/24 04/14/24 History hydrOXYzine HCL [Atarax] 100 mg PO Q6H PRN 04/14/24 04/14/24 History levETIRAcetam [Keppra] 500 mg PO BID 04/14/24 04/14/24 History tiZANidine [Zanaflex] 4 mg PO HS 04/14/24 04/14/24 History Allergies Allergy/AdvReac Type Severity Reaction Status Date / Time Penicillins Allergy Severe Rash/Hives Verified 04/14/24 09:10 Physical Exam Vitals: Vital Signs Temp Pulse Resp BP Pulse Ox 04/14/24 17:47 85 16 139/82 91 L 04/14/24 16:00 112 H 16 196/115 96 04/14/24 15:45 99.9 F H 117 H 22 186/111 96 04/14/24 13:05 117 H 16 178/109 98 04/14/24 12:00 93 22 04/14/24 11:00 121 H 22 175/107 98 04/14/24 10:15 123 H 22 178/111 99 04/14/24 09:01 98.8 F 126 H 22 146/101 98 Intake and Output 04/14/24 04/14/24 04/14/24 06:59 14:59 22:59 Other: Weight 63.503 kg -GENERAL: The patient is confused, does not respond to stimuli, agitated HEENT: Pupils are round and equally reacting to light. EOMI. No scleral icterus. No conjunctival pallor. Normocephalic, atraumatic. No pharyngeal erythema. No thyromegaly. CARDIOVASCULAR: S1 and S2 present. No murmurs, rubs, or gallops. PULMONARY: Chest is clear to auscultation, no wheezing , no crackles. -ABDOMEN: Soft, nontender, nondistended, normoactive bowel sounds. No palpable organomegaly. Thibodeaux catheter in place MUSCULOSKELETAL: No joint swelling or deformity. -EXTREMITIES: No cyanosis, clubbing, or pedal edema. Wound with no evidence of infection on the left lateral leg NEUROLOGICAL: Gross neurological examination did not reveal any focal deficits. SKIN: No rashes. no petechiae. Results CBC & Chem 7: 04/14/24 09:15 04/14/24 09:15 Labs: Abnormal Lab Results - Last 24 Hours (Table) 04/14/24 04/14/24 04/14/24 Range/Units 09:15 09:15 09:15 WBC 13.0 H (3.8-10.6) k/uL RBC 5.52 H (3.80-5.40) m/uL Hgb 17.0 H (11.4-16.0) gm/dL Hct 50.7 H (34.0-46.0) % Neutrophils # 11.1 H (1.3-7.7) k/uL Lymphocytes # 0.9 L (1.0-4.8) k/uL ABG O2 Saturation (94-97) % Chloride 110 H (98-107) mmol/L Carbon Dioxide 19 L (22-30) mmol/L Creatinine 1.35 H (0.52-1.04) mg/dL Glucose 117 H (74-99) mg/dL Plasma Lactic Acid Mariusz (0.7-2.0) mmol/L Calcium 10.9 H (8.4-10.2) mg/dL Total Bilirubin 2.5 H (0.2-1.3) mg/dL AST 75 H (14-36) U/L ALT 47 H (4-34) U/L Alkaline Phosphatase 152 H (38-126) U/L Creatine Kinase 708 H (30-135) U/L Troponin I (0.000-0.034) ng/mL Total Protein 8.3 H (6.3-8.2) g/dL Urine Appearance Cloudy H (Clear) Urine Protein 3+ H (Negative) Urine Ketones Trace H (Negative) Urine Blood Moderate H (Negative) Urine Bilirubin 1+ H (Negative) Ur Leukocyte Esterase Moderate H (Negative) Urine RBC 14 H (0-5) /hpf Urine WBC 79 H (0-5) /hpf Urine Bacteria Occasional H (None) /hpf Hyaline Casts 9 H (0-2) /lpf Urine Mucus Occasional H (None) /hpf Urine Yeast (Budding) Many H (None) /hpf 04/14/24 04/14/24 04/14/24 Range/Units 09:15 09:15 13:08 WBC (3.8-10.6) k/uL RBC (3.80-5.40) m/uL Hgb (11.4-16.0) gm/dL Hct (34.0-46.0) % Neutrophils # (1.3-7.7) k/uL Lymphocytes # (1.0-4.8) k/uL ABG O2 Saturation (94-97) % Chloride (98-107) mmol/L Carbon Dioxide (22-30) mmol/L Creatinine (0.52-1.04) mg/dL Glucose (74-99) mg/dL Plasma Lactic Acid Mariusz 6.9 H* (0.7-2.0) mmol/L Calcium (8.4-10.2) mg/dL Total Bilirubin (0.2-1.3) mg/dL AST (14-36) U/L ALT (4-34) U/L Alkaline Phosphatase (38-126) U/L Creatine Kinase (30-135) U/L Troponin I 1.500 H* 1.620 H* (0.000-0.034) ng/mL Total Protein (6.3-8.2) g/dL Urine Appearance (Clear) Urine Protein (Negative) Urine Ketones (Negative) Urine Blood (Negative) Urine Bilirubin (Negative) Ur Leukocyte Esterase (Negative) Urine RBC (0-5) /hpf Urine WBC (0-5) /hpf Urine Bacteria (None) /hpf Hyaline Casts (0-2) /lpf Urine Mucus (None) /hpf Urine Yeast (Budding) (None) /hpf 04/14/24 04/14/24 04/14/24 Range/Units 13:08 16:08 16:11 WBC (3.8-10.6) k/uL RBC (3.80-5.40) m/uL Hgb (11.4-16.0) gm/dL Hct (34.0-46.0) % Neutrophils # (1.3-7.7) k/uL Lymphocytes # (1.0-4.8) k/uL ABG O2 Saturation (94-97) % Chloride (98-107) mmol/L Carbon Dioxide (22-30) mmol/L Creatinine (0.52-1.04) mg/dL Glucose (74-99) mg/dL Plasma Lactic Acid Mariusz 2.4 H* 2.3 H* (0.7-2.0) mmol/L Calcium (8.4-10.2) mg/dL Total Bilirubin (0.2-1.3) mg/dL AST (14-36) U/L ALT (4-34) U/L Alkaline Phosphatase (38-126) U/L Creatine Kinase (30-135) U/L Troponin I 1.510 H* (0.000-0.034) ng/mL Total Protein (6.3-8.2) g/dL Urine Appearance (Clear) Urine Protein (Negative) Urine Ketones (Negative) Urine Blood (Negative) Urine Bilirubin (Negative) Ur Leukocyte Esterase (Negative) Urine RBC (0-5) /hpf Urine WBC (0-5) /hpf Urine Bacteria (None) /hpf Hyaline Casts (0-2) /lpf Urine Mucus (None) /hpf Urine Yeast (Budding) (None) /hpf 04/14/24 Range/Units 17:11 WBC (3.8-10.6) k/uL RBC (3.80-5.40) m/uL Hgb (11.4-16.0) gm/dL Hct (34.0-46.0) % Neutrophils # (1.3-7.7) k/uL Lymphocytes # (1.0-4.8) k/uL ABG O2 Saturation 98.0 H (94-97) % Chloride (98-107) mmol/L Carbon Dioxide (22-30) mmol/L Creatinine (0.52-1.04) mg/dL Glucose (74-99) mg/dL Plasma Lactic Acid Mariusz (0.7-2.0) mmol/L Calcium (8.4-10.2) mg/dL Total Bilirubin (0.2-1.3) mg/dL AST (14-36) U/L ALT (4-34) U/L Alkaline Phosphatase (38-126) U/L Creatine Kinase (30-135) U/L Troponin I (0.000-0.034) ng/mL Total Protein (6.3-8.2) g/dL Urine Appearance (Clear) Urine Protein (Negative) Urine Ketones (Negative) Urine Blood (Negative) Urine Bilirubin (Negative) Ur Leukocyte Esterase (Negative) Urine RBC (0-5) /hpf Urine WBC (0-5) /hpf Urine Bacteria (None) /hpf Hyaline Casts (0-2) /lpf Urine Mucus (None) /hpf Urine Yeast (Budding) (None) /hpf Assessment and Plan Assessment: Altered mental status, could be metabolic/toxic encephalopathy associated with acute Delirium Alcohol use disorder, possible alcohol withdrawal delirium tremens Dehydration and acute kidney injury most likely prerenal Possible sepsis with high WBC, fever, UTI suspected, cellulitis of the left leg is felt less likely however cannot rule out other sources Seizure disorder on Keppra Alcoholic liver cirrhosis Left leg wound History of GERD History of GI bleed Hepatitis C history of heroin abuse Plan: Continue with ceftriaxone Continue with normal saline 75 mL/h CIWA protocol and thiamine While patient cannot take oral will put the patient on clonidine 0.2 mg patch and nitroglycerin topical 1 inch Check ultrasound of the abdomen Follow-up urine culture Cardiology and neurology consult Labs and medication were reviewed.. Continue same treatment. Continue with symptomatic treatment. Resume home medication. Monitor labs and vitals. DVT and GI prophylaxis. Further recommendations as per clinical course of the patient DVT prophylaxis: Subcutaneous heparin GI Prophylaxis: Pepcid PT/OT: Pending Prognosis is guarded
[2024-04-14] MEDS: SODIUM CHLORIDE 0.9% 1,000 ML with MVI, ADULT NO.4 WITH VIT K 10 ML, THIAMINE 100 MG, F... IV ONE (18:48)
[2024-04-14] MEDS: cloNIDine 0.2 MG/24HR PATCH TRANSDERM SCH (18:48)
--- NOTE | 2024-04-14 19:02 | P.CNNES ---
History of Present Illness Consult date: 04/14/24 Requesting physician: Vivienne Espinoza Reason for Consult: Altered mental status History of Present Illness: Patient is a 53-year-old female came to the hospital a by ambulance today at 8:45 AM for altered mental status. Patient not able to provide any history. As per EMS flowsheet when they arrive for possible seizure. Patient was laying in the position, head in the trash can on the floor between her bed and the wall. Patient was breathing, alert oriented x 0, moaning and left arm was tremoring. Patient was picked up and sat on the edge of the bed. Patient was then carried over to the stair chair and secured. Patient was alert to verbal at that time and nodded yes that she had a seizure. Her blood glucose was 155, temperature 97.1, pupils were equal and reactive. Lungs were clear. Patient has bruising under the right eye and open wound to her left calf. Patient's blood pressure was 138/78 pulse rate 123 saturation 97%. Vital signs arrival blood pressure 146/101, which came up to 178/111 and then 175/107. Pulse rate 126, temperature 98.8. Blood test shows WBC 13.0 hemoglobin 17.0 platelets could not be checked because they were agglutinated. PT PTT normal, electrolytes normal, BUN 17 creatinine 1.35. Lactate 6.9. AST 75, ALT 47, mildly elevated. CK is 708, troponin elevated 1.5. UA shows moderate amount of leukocyte esterase, bacteria occasional, WBC 79. Urine drug screen negative, blood alcohol level negative. EKG showed atrial fibrillation, but cardiology believes is sinus rhythm with rapid ventricular rate. Chest x-ray shows chronic changes without evidence for acute pulmonary disease. Facial CT showed no evidence for depressed or displaced facial bone fracture. CT head revealed age-related atrophic and chronic small vessel ischemic change without acute intracranial process seen at this time. I personally reviewed CT head agree with the findings. CT of the cervical spine showed no evidence for acute fracture or subluxation of the cervical spine. Patient has been seen by myself on 06/25/2023 for altered mental status, when she was found to be comatose. Patient does have history of hepatitis C, hepatic cirrhosis. It was suspected overdose with baclofen or tizanidine. Patient is elevated ammonia suggestive some component of hepatic encephalopathy. Patient was on ventilator. Patient was transferred to [facility] for continuous EEG monitoring at that time. Patient then was readmitted from 08/27/2023 and d ischarged on 08/29/2023 with diagnosis of metabolic encephalopathy likely due to alcohol withdrawal and elevated ammonia, resolved. Alcohol intoxication with history of alcoholism. Suicidal ideation, cirrhosis, thrombocytopenia. Alcoholic liver disease and seizure disorder. Review of Systems ROS unobtainable: due to mental status Past Medical History Past Medical History: Eye Disorder, GERD/Reflux, GI Bleed, Liver Disease, Musculoskeletal Disorder, Neurologic Disorder, Seizure Disorder Additional Past Medical History / Comment(s): SEIZURE FROM ETOH, SHINGLE 6 YERAS AGO,MURMUR,TORN CATILAGE IN KNEES PER PTS MOTHER IN LAW-PT HAD LIVER FAILURE IN PAST, HEP C- NEVER TX (PAST HEROIN USE),AND BULEMIA.ANXIETY/ DEPRESSION, PAST SUICIDE ATTEMPS. "IN OCTOBER DRANK RUBBING ALCOHOL". FAMILT STATED PT TAKES SUBOXONE TO HELP HER NOT DRINK AND FOR PAIN IN LEGS/KNEES. Hep C Positive History of Any Multi-Drug Resistant Organisms: MRSA Date of last positivie culture/infection: 04/20/16 MDRO Source:: SPUTUM Past Surgical History: Hernia Repair, Uterine Ablation Additional Past Surgical History / Comment(s): NOVOSURE ENDOMETRIAL ABLATION. PT HAD "THROAT BANDING DONE" Past Anesthesia/Blood Transfusion Reactions: No Reported Reaction Additional Past Anesthesia/Blood Transfusion Reaction / Comment(s): Pt received previous blood transfusion at [facility] per past medical record. Past Psychological History: Anxiety, Bipolar, Depression, Panic Disorder Smoking Status: Current every day smoker Past Alcohol Use History: Abuse, Daily Past Drug Use History: Cocaine, Heroin, IV Drug Use - Past Family History Father History Unknown: Yes Family Medical History: No Reported History Mother Family Medical History: Cancer Additional Family Medical History / Comment(s): COLON AND LUNG CANCER- AT AGE 50 Medications and Allergies Home Medications Medication Instructions Recorded Confirmed Type Bumetanide [BUMEX] 0.5 mg PO DAILY 07/28/22 04/14/24 History Buprenorphine/Naloxone 8Mg/2Mg 1 film SL TID 07/28/22 04/14/24 History [Suboxone 8-2Mg Film] Mirtazapine [Remeron] 45 mg PO HS 07/28/22 04/14/24 History Propranolol LA [Inderal LA] 60 mg PO HS 07/28/22 04/14/24 History busPIRone HCL 15 mg PO BID 07/28/22 04/14/24 History Levothyroxine Sodium [Synthroid] 50 mcg PO DAILY 06/25/23 04/14/24 History Rifaximin [Xifaxan] 550 mg PO BID 06/25/23 04/14/24 History Topiramate 50 mg PO BID 08/27/23 04/14/24 History Baclofen [Lioresal] 10 mg PO HS 04/14/24 04/14/24 History Lactulose [Cephulac] 10 gm PO TID 04/14/24 04/14/24 History Midodrine [ProAmatine] 5 mg PO TID-W/MEALS 04/14/24 04/14/24 History Spironolactone [Aldactone] 25 mg PO DIRECTED 04/14/24 04/14/24 History chlorproMAZINE [Thorazine] 25 mg PO HS 04/14/24 04/14/24 History hydrOXYzine HCL [Atarax] 100 mg PO Q6H PRN 04/14/24 04/14/24 History levETIRAcetam [Keppra] 500 mg PO BID 04/14/24 04/14/24 History tiZANidine [Zanaflex] 4 mg PO HS 04/14/24 04/14/24 History Allergies Allergy/AdvReac Type Severity Reaction Status Date / Time Penicillins Allergy Severe Rash/Hives Verified 04/14/24 09:10 Physical Examination - Vital Signs Vital Signs: Vital Signs Temp Pulse Resp BP Pulse Ox 04/14/24 11:00 121 H 22 175/107 98 04/14/24 10:15 123 H 22 178/111 99 04/14/24 09:01 98.8 F 126 H 22 146/101 98 Intake and Output 04/13/24 04/14/24 04/14/24 22:59 06:59 14:59 Other: Weight 63.503 kg Patient is a middle aged female, appears older than her stated age. Patient is randomly moving her extremities, frequently goes into a position. Patient is obtunded, very groggy. On calling her name, patient brings her legs up to her chest somewhat a rhythmically. She would not answer to any questions. Does not follow directions. Patient is severely encephalopathic. Patient has received Ativan total of 5 mg over the day, therefore she is groggy partly from that. No obvious seizure-like activity. Patient has dried up make-up around her eyes and somewhat on the cheek. Patient has some bruises over her feet, thigh. Patient is snoring. Attention, concentration is severely impaired and fund of knowledge cannot be assessed. On cranial nerve examination, pupils are equal, round and reacting to light, visual romeo cannot be tested. Her gaze is midline. Oculocephalics are absent. Face is symmetric. Lower cranial nerves cannot be tested because of noncooperation. On muscle strength testing, patient would not cooperate for testing for pronator drift. She moves her arms and legs equally. She is moving her left arm slightly better than the right. Deep tendon reflexes are very hypoactive. Plantars are flat. Sensory to touch cannot be assessed. Patient is feeling painful stimulus slightly better in the right upper limb as compared to the left. Cerebellar function cannot be assessed because of noncooperation. Tone and bulk of muscles normal. Gait deferred.. On general examination, there is no carotid bruit or murmur, S1-S2 audible. Chest is clear on consultation. Abdomen is soft nontender. No organomegaly, bowel sounds present. Peripheral pulses are present. No peripheral edema. Results - Laboratory Findings CBC and BMP: 04/14/24 09:15 04/14/24 09:15 Abnormal Lab Findings: Abnormal Labs 04/14/24 04/14/24 04/14/24 09:15 09:15 09:15 WBC 13.0 H RBC 5.52 H Hgb 17.0 H Hct 50.7 H Neutrophils # 11.1 H Lymphocytes # 0.9 L Chloride 110 H Carbon Dioxide 19 L Creatinine 1.35 H Glucose 117 H Plasma Lactic Acid Mariusz Calcium 10.9 H Total Bilirubin 2.5 H AST 75 H ALT 47 H Alkaline Phosphatase 152 H Creatine Kinase 708 H Troponin I Total Protein 8.3 H Urine Appearance Cloudy H Urine Protein 3+ H Urine Ketones Trace H Urine Blood Moderate H Urine Bilirubin 1+ H Ur Leukocyte Esterase Moderate H Urine RBC 14 H Urine WBC 79 H Urine Bacteria Occasional H Hyaline Casts 9 H Urine Mucus Occasional H Urine Yeast (Budding) Many H 04/14/24 04/14/24 09:15 09:15 WBC RBC Hgb Hct Neutrophils # Lymphocytes # Chloride Carbon Dioxide Creatinine Glucose Plasma Lactic Acid Mariusz 6.9 H* Calcium Total Bilirubin AST ALT Alkaline Phosphatase Creatine Kinase Troponin I 1.500 H* Total Protein Urine Appearance Urine Protein Urine Ketones Urine Blood Urine Bilirubin Ur Leukocyte Esterase Urine RBC Urine WBC Urine Bacteria Hyaline Casts Urine Mucus Urine Yeast (Budding) Assessment and Plan Assessment: * Altered mental status, likely due to metabolic encephalopathy. Reasons multifactorial as mentioned below. * History of alcoholism, rule out alcohol withdrawal. History of polysubstance abuse. * Elevated cardiac enzymes * Elevated liver enzymes * Lactic acidosis * Mild renal insufficiency * Rhabdomyolysis * Possible UTI Plan: * Continue Keppra 500 mg twice daily. * Check EEG in the morning. * Continue lactulose. Ammonia level is normal 10. * Continue CIWA protocol. * Neurology will follow clinically. * Other medical management as per IM. * Thank you for the consult.
[2024-04-14] MEDS: LABETALOL 5 MG/ML VIAL MDV IVP SCH (19:10)
[2024-04-14] MEDS: MIDODRINE 5 MG TAB PO SCH (19:12)
[2024-04-14] MEDS: NITROGLYCERIN OINT 1 INCH/GM PACKET TOPICAL SCH ×2 (19:16→19:20)
--- NOTE | 2024-04-14 19:58 | US ---
EXAMINATION TYPE: US abdomen complete DATE OF EXAM: 04/14/2024 COMPARISON: NONE CLINICAL INDICATION: Female, 53 years old with history of cirrhosis , confusion; Cirrhosis. Patient a ltered mental status and unresponsive TECHNIQUE: Multiple sonographic images of the abdomen are obtained. FINDINGS: EXAM MEASUREMENTS: Liver Length: 16.5 cm Gallbladder Wall: 0.3 cm CBD: Unable to visualize Spleen: 15.8 cm Right Kidney: Unable to visualize Left Kidney: Unable to visualize RELATIONSHIP ADVISOR NOTES: Limited due to unresponsive patient. Nurse stated to continue exam and get what I could. Pancreas: Obscured by bowel gas Liver: Coarse echotexture. Left lobe appears nodular in appearance. Right lobe is difficult to visua lize due to patient position Gallbladder: wnl as best seen today Evidence for sonographic Weems's sign: No CBD: Unable to view due to overlying bowel and lack of patient mobility Spleen: wnl Right Kidney: Unable to view due to overlying bowel and lack of patient mobility Left Kidney: Unable to view due to overlying bowel and lack of patient mobility Upper IVC: wnl Abd Aorta: Prox unable to visualize, mid and distal WNL as best seen. IMPRESSION: 1. Hepatic cirrhosis without evidence of suspicious mass. 2. Splenomegaly suggesting portal hypertension from cirrhosis. 3. Unable to visualize the kidneys and common bile duct secondary to overlying bowel gas.
[2024-04-14] MEDS ORDERED: levETIRAcetam 500 MG TAB PO SCH (21:00)
[2024-04-15] MEDS: busPIRone HCl 5 MG TAB PO SCH (00:44)
[2024-04-15] MEDS: BACLOFEN 10 MG TAB PO SCH (00:44)
[2024-04-15] MEDS: chlorproMAZINE 25 MG TAB PO SCH (00:44)
[2024-04-15] MEDS: MIRTAZAPINE 45 MG TABLET PO SCH (00:45)
[2024-04-15] MEDS: NON FORMULARY DRUG (Buprenorphine/Naloxone 8mg/2mg 1 EACH Film) SUBLINGUAL SCH (00:46)
[2024-04-15] MEDS: PROPRANOLOL LA 60 MG CAP.SA.24H PO SCH (00:46)
[2024-04-15] MEDS: SPIRONOLACTONE 25 MG TAB PO SCH (00:46)
[2024-04-15] MEDS: LACTULOSE 20 GM/30 ML CUP PO SCH (00:46)
[2024-04-15] MEDS: TOPIRAMATE 25 MG TAB PO SCH (00:46)
[2024-04-15] MEDS: tiZANidine 4 MG TAB PO SCH (00:46)
[2024-04-15] MEDS: RIFAXIMIN 550 MG TABLET PO SCH (00:46)
[2024-04-15] MEDS: levETIRAcetam IV 500 MG/5 ML VIAL IVP SCH (01:35)
[2024-04-15] MEDS: LABETALOL 5 MG/ML VIAL MDV IVP PRN (01:36)
[2024-04-15 06:31] LABS: Basophils % (A) 0 %; Eosinophils # (A) 0.1 k/uL (0-0.7); Eosinophils % (A) 1 %; HCT 42.8 % (34.0-46.0); HGB 14.1 gm/dL (11.4-16.0); Lymphocytes # (A) 1.3 k/uL (1.0-4.8); Lymphocytes % (A) 11 %; MCH 30.6 pg (25.0-35.0); MCHC 32.9 g/dL (31.0-37.0); Mean Platelet Volume 9.3; Monocytes # (A) 0.8 k/uL (0-1.0); Monocytes % (A) 7 %; Neutrophils # (A) 8.9 k/uL (1.3-7.7); Neutrophils % (A) 79 %; Poikilocytosis Slight; RDW 15.5 % (11.5-15.5); WBC 11.3 k/uL (3.8-10.6)
[2024-04-15 06:47] LABS: ALT 29 U/L (4-34); AST 101 U/L (14-36); African American GFR (CKD) >90 (>60 ml/min/1.73 sqM); Albumin 3.4 g/dL (3.5-5.0); Alkaline Phosphatase 96 U/L (38-126); Anion Gap -1 mmol/L; Bilirubin, Delta 0.7 mg/dL (0.0-0.2); Bilirubin,Unconjugated 1.7 mg/dL (0.0-1.1); Blood Urea Nitrogen 16 mg/dL (7-17); Calcium 9.2 mg/dL (8.4-10.2); Carbon Dioxide 21 mmol/L (22-30); Chloride 115 mmol/L (98-107); Glucose 105 mg/dL (74-99); Non-African American GFR(CKD) 85 (>60 ml/min/1.73 sqM); Potassium 4.1 mmol/L (3.5-5.1); Sodium 135 mmol/L (137-145); Total Bilirubin 2.4 mg/dL (0.2-1.3)
--- NOTE | 2024-04-15 07:01 | P.PN ---
Subjective Patient is a 53 years old female with past medical history of alcoholic liver cirrhosis, depression history of suicidal ideation, history of seizure disorder, GERD, GI bleed, hepatitis C, history of heroin abuse. Patient was brought from home for altered mental status, patient was found by EMS on her face down on the trash, with strong odor and unkempt. Patient currently is very confused does not follow commands and cannot provide information She is lying in bed looks agitated and moving her extremity continuously especially the lower extremity, does not looks like a seizure. Also we checked her meningeal signs and looks absent Patient cannot take her oral medication and she was found hypertensive and tachycardic in the emergency room, propranolol on hold because of patient cannot take oral medication. IV Lopressor, clonidine patch and nitroglycerin patches provided also to help her with the blood pressure and heart rate. She is mildly tachypneic, she has low-grade temperature 99.9. WBC is slightly elevated at 13,000 hemoglobin 17, sample looks hemoconcentrated and expected to go down with fluid. Baseline WBC is 5-8000, and basal hemoglobin 11-15 Creatinine is mildly elevated 1.3. Lactic acid was significantly elevated 6.9 came down with IV fluid 2.5 Creatinine 1.3 with baseline 0.9-1.0, EKG showing sinus tachycardia at [address]-T changes Chest x-ray showing chronic changes CT of the facial with no facial bone fracture CT of the head and neck is negative for acute process Ammonia level was 10 which is low Troponin is elevated 1.5-1.6 and looks steady. ABG showed normal pH 7.35 and pCO2 41 Serum alcohol and urine drug screen are requested and they are elevated Patient was started on ceftriaxone, CIWA protocol and thiamine Also started on her home dose of IV Keppra. Also patient has wound on her left leg about 2 to 3 inches in diameter with no active bleeding 04/15/2024 Patient still confused, she still agitated moving her legs bilaterally. She is nonverbal, does not open eyes spontaneously or to verbal or tactile stimuli However her abdomen looks soft with no evidence of tenderness or guarding, no right upper quadrant tenderness. No suprapubic or flank tenderness Patient saturating well on 2 L oxygen via nasal cannula Sitter at bedside Thibodeaux catheter in place Vitals are stable, blood pressure is slightly elevated. No more fever since admission. WBC trending down to 11.3, hemoglobin improved 14.1, creatinine back to reference range at 0.8. Lactic acid improved 92.0 which is the reference. Liver enzymes still mildly elevated and abdominal ultrasound reviewed by myself showing cirrhosis and splenomegaly with evidence of portal hypertension Bilirubin and liver enzymes mildly elevated. Patient remains on ceftriaxone, urine and blood cultures are pending. Patient with high CIWA score ranging between 12, 13 and 7. Neurologist evaluated the patient and EEG pending Review of system: Patient cannot provide because of mentation Active Medications Generic Name Dose Route Start Last Admin Trade Name Freq PRN Reason Stop Dose Admin Acetaminophen 325 mg 04/14/24 16:19 04/14/24 16:26 Acetaminophen Suppository 650 Mg Supp RECTAL 325 mg Q6HR PRN Administration Fever and/ or Pain Baclofen 10 mg 04/14/24 21:00 04/15/24 00:44 Baclofen 10 Mg Tab PO Not Given HS SHASHI Bumetanide 0.5 mg 04/15/24 09:00 Bumetanide 0.5 Mg Tablet PO DAILY SHASHI Buspirone HCl 15 mg 04/14/24 21:00 04/15/24 00:44 Buspirone Hcl 5 Mg Tab PO Not Given BID SHASHI Chlorpromazine HCl 25 mg 04/14/24 21:00 04/15/24 00:44 Chlorpromazine 25 Mg Tab PO Not Given HS SHASHI Clonidine HCl 1 patch 04/14/24 18:00 04/14/24 18:48 Clonidine 0.2 Mg/24hr Patch TRANSDERM 1 patch Q7D SHASHI Administration Hydroxyzine HCl 100 mg 04/14/24 16:13 Hydroxyzine Hcl 25 Mg Tab PO Q6H PRN Anxiety Ceftriaxone Sodium 2 gm/ 50 mls @ 100 mls/hr 04/15/24 09:00 Sodium Chloride IVPB DAILY SHASHI Protocol Sodium Chloride 1,000 mls @ 75 mls/hr 04/14/24 14:00 04/14/24 14:13 Saline 0.9% IV 04/15/24 14:01 75 mls/hr .[id number] SHASHI Administration Labetalol HCl 10 mg 04/14/24 19:23 04/15/24 01:36 Labetalol 5 Mg/Ml Vial Mdv IVP 10 mg Q4H PRN Administration Blood Pressure - High Lactulose 10 gm 04/14/24 22:00 04/15/24 00:46 Lactulose 20 Gm/30 Ml Cup PO Not Given TID [facility] Levetiracetam 500 mg 04/14/24 21:00 04/15/24 01:35 Levetiracetam Iv 500 Mg/5 Ml Vial IVP 500 mg Q12HR SHASHI Administration Levothyroxine Sodium 50 mcg 04/15/24 06:30 Levothyroxine 50 Mcg Tab PO DAILY@0630 [facility] Lorazepam 1 mg 04/14/24 10:54 04/15/24 04:58 Lorazepam 2 Mg/Ml Inj IV 1 mg Q1HR PRN Administration CIWA 10 to 15 Lorazepam 1 mg 04/14/24 10:54 04/14/24 16:12 Lorazepam 2 Mg/Ml Inj IV 1 mg Q2HR PRN Administration CIWA 8 or 9 Lorazepam 2 mg 04/14/24 10:54 Lorazepam 2 Mg/Ml Inj IV 04/16/24 10:54 Q10M PRN CIWA 16 or higher Lorazepam 2 mg 04/14/24 10:54 Lorazepam 2 Mg/Ml Inj IV Q6HR PRN Seizures Midodrine 5 mg 04/14/24 17:30 04/14/24 19:12 Midodrine 5 Mg Tab PO Not Given TID-W/MEALS [facility] Mirtazapine 45 mg 04/14/24 21:00 04/15/24 00:45 Mirtazapine 45 Mg Tablet PO Not Given HS [facility] Naloxone HCl 0.2 mg 04/14/24 10:57 Naloxone 0.4 Mg/Ml 1 Ml Vial IV Q2M PRN Opioid Reversal Nitroglycerin 0.5 inch 04/15/24 00:00 04/15/24 00:50 Nitroglycerin Oint 1 Inch/Gm Packet TOPICAL Not Given Q6HR [facility] Non-Formulary Medication 1 film 04/14/24 22:00 04/15/24 00:46 Buprenorphine/Naloxone 8mg/2mg SUBLINGUAL Not Given TID [facility] Ondansetron HCl 4 mg 04/14/24 10:57 Ondansetron 4 Mg/2 Ml Vial IVP Q8HR PRN Nausea And Vomiting Pantoprazole Sodium 40 mg 04/15/24 09:00 Pantoprazole 40 Mg/10 Ml Vial IV DAILY [facility] Propranolol HCl 60 mg 04/14/24 21:00 04/15/24 00:46 Propranolol La 60 Mg Cap.Sa.24h PO Not Given HS [facility] Rifaximin 550 mg 04/14/24 21:00 04/15/24 00:46 Rifaximin 550 Mg Tablet PO 05/14/24 21:01 Not Given BID [facility] Protocol Spironolactone 25 mg 04/14/24 21:00 04/15/24 00:46 Spironolactone 25 Mg Tab PO Not Given BID [facility] Thiamine HCl 100 mg 04/15/24 09:00 Thiamine 100 Mg Tab PO DAILY [facility] Tizanidine HCl 4 mg 04/14/24 21:00 04/15/24 00:46 Tizanidine 4 Mg Tab PO Not Given HS [facility] Topiramate 50 mg 04/14/24 21:00 04/15/24 00:46 Topiramate 25 Mg Tab PO Not Given BID [facility] Objective - Vital Signs Vital signs: Vital Signs Temp 99.9 F H 04/14/24 15:45 Pulse 98 04/14/24 19:00 Resp 16 04/14/24 19:00 BP 178/94 04/14/24 19:00 Pulse Ox 98 04/14/24 19:00 FiO2 Intake & Output 04/14/24 04/14/24 04/15/24 06:59 18:59 06:59 Weight 63.503 kg - Exam -GENERAL: The patient is confused, does not respond to stimuli, agitated HEENT: Pupils are round and equally reacting to light. EOMI. No scleral icterus. No conjunctival pallor. Normocephalic, atraumatic. No pharyngeal erythema. No thyromegaly. CARDIOVASCULAR: S1 and S2 present. No murmurs, rubs, or gallops. PULMONARY: Chest is clear to auscultation, no wheezing , no crackles. -ABDOMEN: Soft, nontender, nondistended, normoactive bowel sounds. No palpable organomegaly. Thibodeaux catheter in place MUSCULOSKELETAL: No joint swelling or deformity. -EXTREMITIES: No cyanosis, clubbing, or pedal edema. Wound with no evidence of infection on the left lateral leg NEUROLOGICAL: Gross neurological examination did not reveal any focal deficits. SKIN: No rashes. no petechiae. - Labs CBC & Chem 7: 04/15/24 06:17 04/15/24 06:17 Labs: Abnormal Lab Results - Last 24 Hours (Table) 04/14/24 04/14/24 04/14/24 Range/Units 09:15 09:15 09:15 WBC 13.0 H (3.8-10.6) k/uL RBC 5.52 H (3.80-5.40) m/uL Hgb 17.0 H (11.4-16.0) gm/dL Hct 50.7 H (34.0-46.0) % Neutrophils # 11.1 H (1.3-7.7) k/uL Lymphocytes # 0.9 L (1.0-4.8) k/uL ABG O2 Saturation (94-97) % Sodium (137-145) mmol/L Chloride 110 H (98-107) mmol/L Carbon Dioxide 19 L (22-30) mmol/L Creatinine 1.35 H (0.52-1.04) mg/dL Glucose 117 H (74-99) mg/dL Plasma Lactic Acid Mariusz (0.7-2.0) mmol/L Calcium 10.9 H (8.4-10.2) mg/dL Total Bilirubin 2.5 H (0.2-1.3) mg/dL Unconjugated Bilirubin (0.0-1.1) mg/dL Delta Bilirubin (0.0-0.2) mg/dL AST 75 H (14-36) U/L ALT 47 H (4-34) U/L Alkaline Phosphatase 152 H (38-126) U/L Creatine Kinase 708 H (30-135) U/L Troponin I (0.000-0.034) ng/mL Total Protein 8.3 H (6.3-8.2) g/dL Albumin (3.5-5.0) g/dL Procalcitonin (0.02-0.09) ng/mL Urine Appearance Cloudy H (Clear) Urine Protein 3+ H (Negative) Urine Ketones Trace H (Negative) Urine Blood Moderate H (Negative) Urine Bilirubin 1+ H (Negative) Ur Leukocyte Esterase Moderate H (Negative) Urine RBC 14 H (0-5) /hpf Urine WBC 79 H (0-5) /hpf Urine Bacteria Occasional H (None) /hpf Hyaline Casts 9 H (0-2) /lpf Urine Mucus Occasional H (None) /hpf Urine Yeast (Budding) Many H (None) /hpf 04/14/24 04/14/24 04/14/24 Range/Units 09:15 09:15 13:08 WBC (3.8-10.6) k/uL RBC (3.80-5.40) m/uL Hgb (11.4-16.0) gm/dL Hct (34.0-46.0) % Neutrophils # (1.3-7.7) k/uL Lymphocytes # (1.0-4.8) k/uL ABG O2 Saturation (94-97) % Sodium (137-145) mmol/L Chloride (98-107) mmol/L Carbon Dioxide (22-30) mmol/L Creatinine (0.52-1.04) mg/dL Glucose (74-99) mg/dL Plasma Lactic Acid Mariusz 6.9 H* (0.7-2.0) mmol/L Calcium (8.4-10.2) mg/dL Total Bilirubin (0.2-1.3) mg/dL Unconjugated Bilirubin (0.0-1.1) mg/dL Delta Bilirubin (0.0-0.2) mg/dL AST (14-36) U/L ALT (4-34) U/L Alkaline Phosphatase (38-126) U/L Creatine Kinase (30-135) U/L Troponin I 1.500 H* 1.620 H* (0.000-0.034) ng/mL Total Protein (6.3-8.2) g/dL Albumin (3.5-5.0) g/dL Procalcitonin (0.02-0.09) ng/mL Urine Appearance (Clear) Urine Protein (Negative) Urine Ketones (Negative) Urine Blood (Negative) Urine Bilirubin (Negative) Ur Leukocyte Esterase (Negative) Urine RBC (0-5) /hpf Urine WBC (0-5) /hpf Urine Bacteria (None) /hpf Hyaline Casts (0-2) /lpf Urine Mucus (None) /hpf Urine Yeast (Budding) (None) /hpf 04/14/24 04/14/24 04/14/24 Range/Units 13:08 14:06 16:08 WBC (3.8-10.6) k/uL RBC (3.80-5.40) m/uL Hgb (11.4-16.0) gm/dL Hct (34.0-46.0) % Neutrophils # (1.3-7.7) k/uL Lymphocytes # (1.0-4.8) k/uL ABG O2 Saturation (94-97) % Sodium (137-145) mmol/L Chloride (98-107) mmol/L Carbon Dioxide (22-30) mmol/L Creatinine (0.52-1.04) mg/dL Glucose (74-99) mg/dL Plasma Lactic Acid Mariusz 2.4 H* (0.7-2.0) mmol/L Calcium (8.4-10.2) mg/dL Total Bilirubin (0.2-1.3) mg/dL Unconjugated Bilirubin (0.0-1.1) mg/dL Delta Bilirubin (0.0-0.2) mg/dL AST (14-36) U/L ALT (4-34) U/L Alkaline Phosphatase (38-126) U/L Creatine Kinase (30-135) U/L Troponin I 1.510 H* (0.000-0.034) ng/mL Total Protein (6.3-8.2) g/dL Albumin (3.5-5.0) g/dL Procalcitonin 0.17 H (0.02-0.09) ng/mL Urine Appearance (Clear) Urine Protein (Negative) Urine Ketones (Negative) Urine Blood (Negative) Urine Bilirubin (Negative) Ur Leukocyte Esterase (Negative) Urine RBC (0-5) /hpf Urine WBC (0-5) /hpf Urine Bacteria (None) /hpf Hyaline Casts (0-2) /lpf Urine Mucus (None) /hpf Urine Yeast (Budding) (None) /hpf 04/14/24 04/14/24 04/15/24 Range/Units 16:11 17:11 06:17 WBC 11.3 H (3.8-10.6) k/uL RBC (3.80-5.40) m/uL Hgb (11.4-16.0) gm/dL Hct (34.0-46.0) % Neutrophils # (1.3-7.7) k/uL Lymphocytes # (1.0-4.8) k/uL ABG O2 Saturation 98.0 H (94-97) % Sodium (137-145) mmol/L Chloride (98-107) mmol/L Carbon Dioxide (22-30) mmol/L Creatinine (0.52-1.04) mg/dL Glucose (74-99) mg/dL Plasma Lactic Acid Mariusz 2.3 H* (0.7-2.0) mmol/L Calcium (8.4-10.2) mg/dL Total Bilirubin (0.2-1.3) mg/dL Unconjugated Bilirubin (0.0-1.1) mg/dL Delta Bilirubin (0.0-0.2) mg/dL AST (14-36) U/L ALT (4-34) U/L Alkaline Phosphatase (38-126) U/L Creatine Kinase (30-135) U/L Troponin I (0.000-0.034) ng/mL Total Protein (6.3-8.2) g/dL Albumin (3.5-5.0) g/dL Procalcitonin (0.02-0.09) ng/mL Urine Appearance (Clear) Urine Protein (Negative) Urine Ketones (Negative) Urine Blood (Negative) Urine Bilirubin (Negative) Ur Leukocyte Esterase (Negative) Urine RBC (0-5) /hpf Urine WBC (0-5) /hpf Urine Bacteria (None) /hpf Hyaline Casts (0-2) /lpf Urine Mucus (None) /hpf Urine Yeast (Budding) (None) /hpf 04/15/ Range/Units 06:17 WBC (3.8-10.6) k/uL RBC (3.80-5.40) m/uL Hgb (11.4-16.0) gm/dL Hct (34.0-46.0) % Neutrophils # (1.3-7.7) k/uL Lymphocytes # (1.0-4.8) k/uL ABG O2 Saturation (94-97) % Sodium 135 L (137-145) mmol/L Chloride 115 H (98-107) mmol/L Carbon Dioxide 21 L (22-30) mmol/L Creatinine (0.52-1.04) mg/dL Glucose 105 H (74-99) mg/dL Plasma Lactic Acid Mariusz (0.7-2.0) mmol/L Calcium (8.4-10.2) mg/dL Total Bilirubin 2.4 H (0.2-1.3) mg/dL Unconjugated Bilirubin 1.7 H (0.0-1.1) mg/dL Delta Bilirubin 0.7 H (0.0-0.2) mg/dL AST 101 H (14-36) U/L ALT (4-34) U/L Alkaline Phosphatase (38-126) U/L Creatine Kinase (30-135) U/L Troponin I (0.000-0.034) ng/mL Total Protein 6.0 L (6.3-8.2) g/dL Albumin 3.4 L (3.5-5.0) g/dL Procalcitonin (0.02-0.09) ng/mL Urine Appearance (Clear) Urine Protein (Negative) Urine Ketones (Negative) Urine Blood (Negative) Urine Bilirubin (Negative) Ur Leukocyte Esterase (Negative) Urine RBC (0-5) /hpf Urine WBC (0-5) /hpf Urine Bacteria (None) /hpf Hyaline Casts (0-2) /lpf Urine Mucus (None) /hpf Urine Yeast (Budding) (None) /hpf Assessment and Plan Assessment: Altered mental status, could be metabolic/toxic encephalopathy associated with acute Delirium Alcohol use disorder, possible alcohol withdrawal delirium tremens Dehydration and acute kidney injury most likely prerenal Possible sepsis with high WBC, fever, UTI suspected, cellulitis of the left leg is felt less likely however cannot rule out other sources Seizure disorder on Kera Alcoholic liver cirrhosis Left leg wound History of GERD History of GI bleed Hepatitis C history of heroin abuse Plan: Continue with ceftriaxone Continue with normal saline 75 mL/h CIWA protocol and thiamine While patient cannot take oral will put the patient on clonidine 0.2 mg patch and nitroglycerin topical Check ultrasound of the abdomen Follow-up urine culture Cardiology and neurology consult Labs and medication were reviewed.. Continue same treatment. Continue with symptomatic treatment. Resume home medication. Monitor labs and vitals. DVT and GI prophylaxis. Further recommendations as per clinical course of the patient DVT prophylaxis: Subcutaneous heparin GI Prophylaxis: Pepcid PT/OT: Pending Prognosis is guarded
[2024-04-15] MEDS: LEVOTHYROXINE 50 MCG TAB PO SCH (07:05)
[2024-04-15 08:05] LABS: Platelet Count 75 k/uL (150-450)
[2024-04-15] MEDS: BUMETANIDE 0.5 MG TABLET PO SCH (08:07)
[2024-04-15] MEDS: THIAMINE 100 MG TAB PO SCH (08:10)
[2024-04-15] MEDS: PANTOPRAZOLE 40 MG/10 ML VIAL IV SCH (08:28)
--- NOTE | 2024-04-15 10:23 | P.CRDCN ---
History of Present Illness History of present illness: HISTORY OF PRESENT ILLNESS: This is a 53-year-old female with a past medical history significant for alcoholic liver disease, GERD, GI bleed, hepatitis, and heroin abuse. Patient does not follow with a operations boardman. We have been asked to see the patient in consultation for elevated troponins. Patient examined at the bedside emergency room. Patient is confused at the time of examination unable to provide any meaningful history. There is no family present. According to ER documentation, the patient was found facedown with her head in a trash can on the floor. DIAGNOSTICS: - EKG reveals sinus tachycardia with no signs of acute ischemia. - Chest xray chronic changes without evidence for acute pulmonary process. - Laboratory data: WBC 11.3. Hemoglobin 14.1. Sodium 135. Potassium 4.1. BUN 16. Creatinine 0.81. Lactic acid 2.1. Troponin 1.500. 1.620. 1.510. - Current home cardiac medications include Bumex 0.5 mg daily, midodrine 5 mg 3 times a day with meals, propranolol 60 mg at night, Aldactone 25 mg daily. - Most recent echocardiogram obtained in February 2023 revealed ejection fraction 65 to 70%, moderate to severe mitral regurgitation septal hypertrophy with turbu lent flow across the left ventricular outflow track REVIEW OF SYSTEMS: Unable to obtain thorough review of systems secondary to altered mental status PHYSICAL EXAM: VITAL SIGNS: Reviewed. GENERAL: Well-developed in no acute distress. HEENT: Head is normocephalic. Pupils are equal, round. Sclerae anicteric. Mucous membranes of the mouth are moist. Neck supple. No JVD or thyromegaly LUNGS: Respirations even and unlabored. Lungs essentially clear to auscultation bilaterally. HEART: Regular rate and rhythm. S1 and S2 heard. Systolic murmur noted. ABDOMEN: Soft. Nondistended. Nontender. EXTREMITIES: Normal range of motion. No clubbing or cyanosis. Peripheral pulses intact. No lower extremity edema NEUROLOGIC: Confused. Lethargic. ASSESSMENT: Altered mental status Bacteremia Suspected urinary tract infection Elevated troponins likely secondary to acute myocardial injury without ischemia secondary to metabolic encephalopathy Moderate to severe mitral regurgitation History of alcohol abuse Elevated lactic acid History of seizure disorder History of GERD History of hepatitis Nicotine dependence PLAN: An acute coronary and has been ruled out Obtain 2D echo to assess cardiac structure and function Infectious disease consulted for positive blood cultures. Continue antibiotics. Stable from a cardiac standpoint Further recommendations pending patient course Nurse practitioner note has been reviewed by physician. Signing provider agrees with the documented findings, assessment, and plan of care documented by CAT SWAMPER as a scribe. 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 "IN OCTOBER DRANK RUBBING ALCOHOL". FAMILT STATED PT TAKES SUBOXONE TO HELP HER NOT DRINK AND FOR PAIN IN LEGS/KNEES. Hep C Positive History of Any Multi-Drug Resistant Organisms: MRSA Date of last positivie culture/infection: 04/20/16 MDRO Source:: SPUTUM Past Surgical History: Hernia Repair, Uterine Ablation Additional Past Surgical History / Comment(s): NOVOSURE ENDOMETRIAL ABLATION. PT HAD "THROAT BANDING DONE" Past Anesthesia/Blood Transfusion Reactions: No Reported Reaction Additional Past Anesthesia/Blood Transfusion Reaction / Comment(s): Pt received previous blood transfusion at [facility] per past medical record. Past Psychological History: Anxiety, Bipolar, Depression, Panic Disorder Smoking Status: Current every day smoker Past Alcohol Use History: Abuse, Daily Past Drug Use History: Cocaine, Heroin, IV Drug Use - Past Family History Father History Unknown: Yes Family Medical History: No Reported History Mother Family Medical History: Cancer Additional Family Medical History / Comment(s): COLON AND LUNG CANCER- AT AGE 50 Medications and Allergies Home Medications Medication Instructions Recorded Confirmed Type Bumetanide [BUMEX] 0.5 mg PO DAILY 07/28/22 04/14/24 History Buprenorphine/Naloxone 8Mg/2Mg 1 film SL TID 07/28/22 04/14/24 History [Suboxone 8-2Mg Film] Mirtazapine [Remeron] 45 mg PO HS 07/28/22 04/14/24 History Propranolol LA [Inderal LA] 60 mg PO HS 07/28/22 04/14/24 History busPIRone HCL 15 mg PO BID 07/28/22 04/14/24 History Levothyroxine Sodium [Synthroid] 50 mcg PO DAILY 06/25/23 04/14/24 History Rifaximin [Xifaxan] 550 mg PO BID 06/25/23 04/14/24 History Topiramate 50 mg PO BID 08/27/23 04/14/24 History Baclofen [Lioresal] 10 mg PO HS 04/14/24 04/14/24 History Lactulose [Cephulac] 10 gm PO TID 04/14/24 04/14/24 History Midodrine [ProAmatine] 5 mg PO TID-W/MEALS 04/14/24 04/14/24 History Spironolactone [Aldactone] 25 mg PO DIRECTED 04/14/24 04/14/24 History chlorproMAZINE [Thorazine] 25 mg PO HS 04/14/24 04/14/24 History hydrOXYzine HCL [Atarax] 100 mg PO Q6H PRN 04/14/24 04/14/24 History levETIRAcetam [Keppra] 500 mg PO BID 04/14/24 04/14/24 History tiZANidine [Zanaflex] 4 mg PO HS 04/14/24 04/14/24 History Allergies Allergy/AdvReac Type Severity Reaction Status Date / Time Penicillins Allergy Severe Rash/Hives Verified 04/14/24 09:10 Physical Exam Vitals: Vital Signs Temp Pulse Resp BP Pulse Ox 04/14/24 19:00 98 16 178/94 98 04/14/24 17:47 85 16 139/82 91 L 04/14/24 16:00 112 H 16 196/115 96 04/14/24 15:45 99.9 F H 117 H 22 186/111 96 04/14/24 13:05 117 H 16 178/109 98 04/14/24 12:00 93 22 04/14/24 11:00 121 H 22 175/107 98 04/14/24 10:15 123 H 22 178/111 99 04/14/24 09:01 98.8 F 126 H 22 146/101 98 Results 04/15/24 06:17 04/15/24 06:17 Cardiac Enzymes 04/14/24 04/14/24 04/14/24 Range/Units 09:15 09:15 13:08 AST 75 H (14-36) U/L Troponin I 1.500 H* 1.620 H* (0.000-0.034) ng/mL 04/14/24 04/15/24 Range/Units 16:08 06:17 AST 101 H (14-36) U/L Troponin I 1.510 H* (0.000-0.034) ng/mL Coagulation 04/14/24 Range/Units 09:15 PT 11.7 (10.0-12.5) sec APTT 26.9 (22.0-30.0) sec CBC 04/14/24 04/15/24 Range/Units 09:15 06:17 WBC 13.0 H 11.3 H (3.8-10.6) k/uL RBC 5.52 H 4.60 (3.80-5.40) m/uL Hgb 17.0 H 14.1 (11.4-16.0) gm/dL Hct 50.7 H 42.8 (34.0-46.0) % Plt Count (150-450) k/uL Comprehensive Metabolic Panel 04/14/24 04/15/24 Range/Units 09:15 06:17 Sodium 145 135 L (137-145) mmol/L Potassium 4.0 4.1 (3.5-5.1) mmol/L Chloride 110 H 115 H (98-107) mmol/L Carbon Dioxide 19 L 21 L (22-30) mmol/L BUN 17 16 (7-17) mg/dL Creatinine 1.35 H 0.80 (0.52-1.04) mg/dL Glucose 117 H 105 H (74-99) mg/dL Calcium 10.9 H 9.2 (8.4-10.2) mg/dL Unconjugated Bilirubin 1.7 H (0.0-1.1) mg/dL AST 75 H 101 H (14-36) U/L ALT 47 H 29 (4-34) U/L Alkaline Phosphatase 152 H 96 (38-126) U/L Total Protein 8.3 H 6.0 L (6.3-8.2) g/dL Albumin 4.9 3.4 L (3.5-5.0) g/dL Current Medications Generic Name Dose Route Start Last Admin Trade Name Freq PRN Reason Stop Dose Admin Acetaminophen 325 mg 04/14/24 16:19 04/14/24 16:26 Acetaminophen Suppository 650 Mg Supp RECTAL 325 mg Q6HR PRN Administration Fever and/ or Pain Baclofen 10 mg 04/14/24 21:00 04/15/24 00:44 Baclofen 10 Mg Tab PO Not Given HS SHASHI Bumetanide 0.5 mg 04/15/24 09:00 Bumetanide 0.5 Mg Tablet PO DAILY SHASHI Buspirone HCl 15 mg 04/14/24 21:00 04/15/24 00:44 Buspirone Hcl 5 Mg Tab PO Not Given BID SHASHI Chlorpromazine HCl 25 mg 04/14/24 21:00 04/15/24 00:44 Chlorpromazine 25 Mg Tab PO Not Given HS SHASHI Clonidine HCl 1 patch 04/14/24 18:00 04/14/24 18:48 Clonidine 0.2 Mg/24hr Patch TRANSDERM 1 patch Q7D SHASHI Administration Hydroxyzine HCl 100 mg 04/14/24 16:13 Hydroxyzine Hcl 25 Mg Tab PO Q6H PRN Anxiety Ceftriaxone Sodium 2 gm/ 50 mls @ 100 mls/hr 04/15/24 09:00 Sodium Chloride IVPB DAILY [facility] Protocol Sodium Chloride 1,000 mls @ 75 mls/hr 04/14/24 14:00 04/15/24 07:04 Saline 0.9% IV 04/16/24 14:01 Not Given .[id number] SHASHI Labetalol HCl 10 mg 04/14/24 19:23 04/15/24 01:36 Labetalol 5 Mg/Ml Vial Mdv IVP 10 mg Q4H PRN Administration Blood Pressure - High Lactulose 10 gm 04/14/24 22:00 04/15/24 00:46 Lactulose 20 Gm/30 Ml Cup PO Not Given TID SHASHI Levetiracetam 500 mg 04/14/24 21:00 04/15/24 01:35 Levetiracetam Iv 500 Mg/5 Ml Vial IVP 500 mg Q12HR SHASHI Administration Levothyroxine Sodium 50 mcg 04/15/24 06:30 04/15/24 07:05 Levothyroxine 50 Mcg Tab PO Not Given DAILY@0630 SHASHI Lorazepam 1 mg 04/14/24 10:54 04/15/24 04:58 Lorazepam 2 Mg/Ml Inj IV 1 mg Q1HR PRN Administration CIWA 10 to 15 Lorazepam 1 mg 04/14/24 10:54 04/14/24 16:12 Lorazepam 2 Mg/Ml Inj IV 1 mg Q2HR PRN Administration CIWA 8 or 9 Lorazepam 2 mg 04/14/24 10:54 Lorazepam 2 Mg/Ml Inj IV 04/16/24 10:54 Q10M PRN CIWA 16 or higher Lorazepam 2 mg 04/14/24 10:54 Lorazepam 2 Mg/Ml Inj IV Q6HR PRN Seizures Midodrine 5 mg 04/14/24 17:30 04/15/24 07:37 Midodrine 5 Mg Tab PO Not Given TID-W/MEALS [facility] Mirtazapine 45 mg 04/14/24 21:00 04/15/24 00:45 Mirtazapine 45 Mg Tablet PO Not Given HS [facility] Naloxone HCl 0.2 mg 04/14/24 10:57 Naloxone 0.4 Mg/Ml 1 Ml Vial IV Q2M PRN Opioid Reversal Nitroglycerin 0.5 inch 04/15/24 00:00 04/15/24 07:05 Nitroglycerin Oint 1 Inch/Gm Packet TOPICAL Not Given Q6HR [facility] Non-Formulary Medication 1 film 04/14/24 22:00 04/15/24 00:46 Buprenorphine/Naloxone 8mg/2mg SUBLINGUAL Not Given TID [facility] Ondansetron HCl 4 mg 04/14/24 10:57 Ondansetron 4 Mg/2 Ml Vial IVP Q8HR PRN Nausea And Vomiting Pantoprazole Sodium 40 mg 04/15/24 09:00 Pantoprazole 40 Mg/10 Ml Vial IV DAILY [facility] Propranolol HCl 60 mg 04/14/24 21:00 04/15/24 00:46 Propranolol La 60 Mg Cap.Sa.24h PO Not Given HS [facility] Rifaximin 550 mg 04/14/24 21:00 04/15/24 00:46 Rifaximin 550 Mg Tablet PO 05/14/24 21:01 Not Given BID [facility] Protocol Spironolactone 25 mg 04/14/24 21:00 04/15/24 00:46 Spironolactone 25 Mg Tab PO Not Given BID [facility] Thiamine HCl 100 mg 04/15/24 09:00 Thiamine 100 Mg Tab PO DAILY [facility] Tizanidine HCl 4 mg 04/14/24 21:00 04/15/24 00:46 Tizanidine 4 Mg Tab PO Not Given HS SHASHI Topiramate 50 mg 04/14/24 21:00 04/15/24 00:46 Topiramate 25 Mg Tab PO Not Given BID SHASHI 04/15/24 06:17 04/15/24 06:17
[2024-04-15 17:10] LABS: Glucose,Whole Blood 90 mg/dL (70-110)
[2024-04-15] MEDS: HALOPERIDOL LACTATE 5 MG/ML 1 ML VIAL IM STA (18:56)
--- NOTE | 2024-04-15 22:46 | P.CONS ---
History of Present Illness - Reason for Consult Consult date: 04/15/24 - History of Present Illness Patient is a 53-year-old female with a past medical history significant for reflux seizure from alcoholism liver disease GI bleed bipolar depression current everyday smoker patient has been brought to the hospital yesterday morning for evaluation of altered mental status patient was found is down with her head in a trash can on the floor in her house by family member patient was not very responsive at that time and apparently the patient was seen to be eval the evening before the patient has been brought into the hospital patient was found to be surrounded by vomit and apparently this happens when the patient has been taking have not been on presentation to the hospital patient was afebrile he did have 1 low-grade fever of 99.9 degrees following right patient was not tachycardic hypotensive or hypoxic patient did have a white count of 13,000 repeat is 11.3 creatinine is 1.35 lactic acid was 3 point 3 repeat is 1.7 liver isms are normal Pro-Bijan 0.17 urine has been positive urine drug screen negative serum alcohol was less than 10 patient did have a blood culture showing gram-negative as well as gram-positive patient is currently treated with ceftriaxone infectious disease was consulted for further management of antibiotic therapy most information has been obtained from review of the chart as the patient was not able to provide any history Past Medical History Past Medical History: Eye Disorder, GERD/Reflux, GI Bleed, Liver Disease, Musculoskeletal Disorder, Neurologic Disorder, Seizure Disorder Additional Past Medical History / Comment(s): SEIZURE FROM ETOH, SHINGLE 6 YERAS AGO,MURMUR,TORN CATILAGE IN KNEES PER PTS MOTHER IN LAW-PT HAD LIVER FAILURE IN PAST, HEP C- NEVER TX (PAST HEROIN USE),AND BULEMIA.ANXIETY/ DEPRESSION, PAST SUICIDE ATTEMPS. "IN OCTOBER DRANK RUBBING ALCOHOL". FAMILT STATED PT TAKES SUBOXONE TO HELP HER NOT DRINK AND FOR PAIN IN LEGS/KNEES. Hep C Positive History of Any Multi-Drug Resistant Organisms: MRSA Year Discovered:: 04/20/16 MDRO Source:: SPUTUM Past Surgical History: Hernia Repair, Uterine Ablation Additional Past Surgical History / Comment(s): NOVOSURE ENDOMETRIAL ABLATION. PT HAD "THROAT BANDING DONE" Past Anesthesia/Blood Transfusion Reactions: No Reported Reaction Additional Past Anesthesia/Blood Transfusion Reaction / Comm: Pt received previous blood transfusion at [facility] per past medical record. Past Psychological History: Anxiety, Bipolar, Depression, Panic Disorder Smoking Status: Current every day smoker Past Alcohol Use History: Abuse, Daily Past Drug Use History: Cocaine, Heroin, IV Drug Use - Past Family History Father History Unknown: Yes Family Medical History: No Reported History Mother Family Medical History: Cancer Additional Family Medical History / Comment(s): COLON AND LUNG CANCER- AT AGE 50 Medications and Allergies Home Medications Medication Instructions Recorded Confirmed Type Bumetanide [BUMEX] 0.5 mg PO DAILY 07/28/22 04/14/24 History Buprenorphine/Naloxone 8Mg/2Mg 1 film SL TID 07/28/22 04/14/24 History [Suboxone 8-2Mg Film] Mirtazapine [Remeron] 45 mg PO HS 07/28/22 04/14/24 History Propranolol LA [Inderal LA] 60 mg PO HS 07/28/22 04/14/24 History busPIRone HCL 15 mg PO BID 07/28/22 04/14/24 History Levothyroxine Sodium [Synthroid] 50 mcg PO DAILY 06/25/23 04/14/24 History Rifaximin [Xifaxan] 550 mg PO BID 06/25/23 04/14/24 History Topiramate 50 mg PO BID 08/27/23 04/14/24 History Baclofen [Lioresal] 10 mg PO HS 04/14/24 04/14/24 History Lactulose [Cephulac] 10 gm PO TID 04/14/24 04/14/24 History Midodrine [ProAmatine] 5 mg PO TID-W/MEALS 04/14/24 04/14/24 History Spironolactone [Aldactone] 25 mg PO DIRECTED 04/14/24 04/14/24 History chlorproMAZINE [Thorazine] 25 mg PO HS 04/14/24 04/14/24 History hydrOXYzine HCL [Atarax] 100 mg PO Q6H PRN 04/14/24 04/14/24 History levETIRAcetam [Keppra] 500 mg PO BID 04/14/24 04/14/24 History tiZANidine [Zanaflex] 4 mg PO HS 04/14/24 04/14/24 History Allergies Allergy/AdvReac Type Severity Reaction Status Date / Time Penicillins Allergy Severe Rash/Hives Verified 04/14/24 09:10 Physical Exam Vitals: Vital Signs Temp Pulse Resp BP Pulse Ox 04/15/24 11:57 101 H 16 142/105 97 04/15/24 10:25 98.4 F 93 18 147/97 95 04/15/24 09:15 97 04/15/24 08:05 92 18 132/77 97 04/15/24 07:50 98.1 F 110 H 18 154/114 98 04/15/24 06:00 97.9 F 110 H 16 162/102 04/15/24 04:00 109 H 16 162/98 92 L 04/15/24 02:00 110 H 16 160/119 92 L 04/15/24 00:00 117 H 16 158/98 94 L 04/14/24 22:00 98.2 F 109 H 16 164/104 93 L 04/14/24 19:00 98 16 178/94 98 04/14/24 17:47 85 16 139/82 91 L 04/14/24 16:00 112 H 16 196/115 96 04/14/24 15:45 99.9 F H 117 H 22 186/111 96 04/14/24 13:05 117 H 16 178/109 98 Intake and Output 04/14/24 04/15/24 04/15/24 22:59 06:59 14:59 Output Total 500 Balance -500 Output: Urine 500 Results CBC & Chem 7: 04/15/24 06:17 04/15/24 06:17 Labs: Abnormal Lab Results - Last 24 Hours (Table) 04/14/24 04/14/24 04/14/24 Range/Units 13:08 13:08 14:06 WBC (3.8-10.6) k/uL Plt Count (150-450) k/uL Neutrophils # (1.3-7.7) k/uL ABG O2 Saturation (94-97) % Sodium (137-145) mmol/L Chloride (98-107) mmol/L Carbon Dioxide (22-30) mmol/L Glucose (74-99) mg/dL Plasma Lactic Acid Mariusz 2.4 H* (0.7-2.0) mmol/L Total Bilirubin (0.2-1.3) mg/dL Unconjugated Bilirubin (0.0-1.1) mg/dL Delta Bilirubin (0.0-0.2) mg/dL AST (14-36) U/L Troponin I 1.620 H* (0.000-0.034) ng/mL Total Protein (6.3-8.2) g/dL Albumin (3.5-5.0) g/dL Procalcitonin 0.17 H (0.02-0.09) ng/mL 04/14/24 04/14/24 04/14/24 Range/Units 16:08 16:11 17:11 WBC (3.8-10.6) k/uL Plt Count (150-450) k/uL Neutrophils # (1.3-7.7) k/uL ABG O2 Saturation 98.0 H (94-97) % Sodium (137-145) mmol/L Chloride (98-107) mmol/L Carbon Dioxide (22-30) mmol/L Glucose (74-99) mg/dL Plasma Lactic Acid Mariusz 2.3 H* (0.7-2.0) mmol/L Total Bilirubin (0.2-1.3) mg/dL Unconjugated Bilirubin (0.0-1.1) mg/dL Delta Bilirubin (0.0-0.2) mg/dL AST (14-36) U/L Troponin I 1.510 H* (0.000-0.034) ng/mL Total Protein (6.3-8.2) g/dL Albumin (3.5-5.0) g/dL Procalcitonin (0.02-0.09) ng/mL 04/15/24 04/15/24 04/15/24 Range/Units 06:17 06:17 06:17 WBC 11.3 H (3.8-10.6) k/uL Plt Count 75 L (150-450) k/uL Neutrophils # 8.9 H (1.3-7.7) k/uL ABG O2 Saturation (94-97) % Sodium 135 L (137-145) mmol/L Chloride 115 H (98-107) mmol/L Carbon Dioxide 21 L (22-30) mmol/L Glucose 105 H (74-99) mg/dL Plasma Lactic Acid Mariusz 2.1 H* (0.7-2.0) mmol/L Total Bilirubin 2.4 H (0.2-1.3) mg/dL Unconjugated Bilirubin 1.7 H (0.0-1.1) mg/dL Delta Bilirubin 0.7 H (0.0-0.2) mg/dL AST 101 H (14-36) U/L Troponin I (0.000-0.034) ng/mL Total Protein 6.0 L (6.3-8.2) g/dL Albumin 3.4 L (3.5-5.0) g/dL Procalcitonin (0.02-0.09) ng/mL Microbiology - Last 24 Hours (Table) 04/14/24 11:15 Blood Culture Gram Stain - Preliminary Blood 04/14/24 11:30 Blood Culture Gram Stain - Preliminary Blood Blood Culture - Preliminary Molecular ID Assessment and Plan Plan: 1patient with a positive blood culture with gram-negative bacilli more likely urinary source as the patient abdomen was soft on clinical examination patient did have a abdominal ultrasound and the gallbladder was within normal limit currently do not have any abdominal cellulitis and neck was supple on clinical lamination 2-positive blood culture with staph epi more likely skin contamination 3-blood culture repeated document clearance of bacteremia 4-patient to continue with Rocephin while waiting for the culture to finalize We will follow on clinical condition and cultures to further adjust medication if needed Thank you for this consultation we will follow the patient along with you Dictation was produced using [employer] dictation software. please excuse any grammatical, word or spelling errors. Time with Patient: Greater than 30
[2024-04-16] MEDS: LORazepam 2 MG/ML INJ IV ONE (06:18)
[2024-04-16] MEDS: HALOPERIDOL LACTATE 5 MG/ML 1 ML VIAL IM STA (06:45)
--- NOTE | 2024-04-16 07:51 | P.PN ---
Subjective Progress Note Date: 04/15/24 Patient was seen for a follow-up. Patient continues to be severely encephalopathic, very restless, moving her extremities randomly. Patient lifts her legs up and throws it down, sometimes hitting the side rail. Recommend seizure precautions and seizure pads. Patient could not have EEG performed today because of severe altered mental status. Sitter was present, who states patient is "out of it", mostly sleeping, not talking. No seizures reported. Objective - Vital Signs Vital signs: Vital Signs Temp 97.6 F 04/15/24 15:58 Pulse 87 04/15/24 15:58 Resp 17 04/15/24 15:58 BP 155/95 04/15/24 15:58 Pulse Ox 96 04/15/24 15:58 FiO2 Intake & Output 04/14/24 04/15/24 04/15/24 18:59 06:59 18:59 Output Total 500 Balance -500 Weight 63.503 kg Output: Urine 500 Other: Voiding Method Indwelling Catheter - Exam Patient's severely encephalopathic, delirious, restless, randomly moving her extremities. Patient would not speak, on asking her name repetitively, patient started moaning, and the volume of moaning increased very loud. She brings her legs up, and folds like a Pretzel. No seizure-like activity otherwise. Patient has bruises on her legs from thrashing. - Labs CBC & Chem 7: 04/15/24 06:17 04/15/24 06:17 Labs: Abnormal Lab Results - Last 24 Hours (Table) 04/14/24 04/14/24 04/14/24 Range/Units 14:06 16:08 16:11 WBC (3.8-10.6) k/uL Plt Count (150-450) k/uL Neutrophils # (1.3-7.7) k/uL ABG O2 Saturation (94-97) % Sodium (137-145) mmol/L Chloride (98-107) mmol/L Carbon Dioxide (22-30) mmol/L Glucose (74-99) mg/dL Plasma Lactic Acid Mariusz 2.3 H* (0.7-2.0) mmol/L Total Bilirubin (0.2-1.3) mg/dL Unconjugated Bilirubin (0.0-1.1) mg/dL Delta Bilirubin (0.0-0.2) mg/dL AST (14-36) U/L Troponin I 1.510 H* (0.000-0.034) ng/mL Total Protein (6.3-8.2) g/dL Albumin (3.5-5.0) g/dL Procalcitonin 0.17 H (0.02-0.09) ng/mL 04/14/24 04/15/24 04/15/24 Range/Units 17:11 06:17 06:17 WBC 11.3 H (3.8-10.6) k/uL Plt Count 75 L (150-450) k/uL Neutrophils # 8.9 H (1.3-7.7) k/uL ABG O2 Saturation 98.0 H (94-97) % Sodium (137-145) mmol/L Chloride (98-107) mmol/L Carbon Dioxide (22-30) mmol/L Glucose (74-99) mg/dL Plasma Lactic Acid Mariusz 2.1 H* (0.7-2.0) mmol/L Total Bilirubin (0.2-1.3) mg/dL Unconjugated Bilirubin (0.0-1.1) mg/dL Delta Bilirubin (0.0-0.2) mg/dL AST (14-36) U/L Troponin I (0.000-0.034) ng/mL Total Protein (6.3-8.2) g/dL Albumin (3.5-5.0) g/dL Procalcitonin (0.02-0.09) ng/mL 04/15/24 Range/Units 06:17 WBC (3.8-10.6) k/uL Plt Count (150-450) k/uL Neutrophils # (1.3-7.7) k/uL ABG O2 Saturation (94-97) % Sodium 135 L (137-145) mmol/L Chloride 115 H (98-107) mmol/L Carbon Dioxide 21 L (22-30) mmol/L Glucose 105 H (74-99) mg/dL Plasma Lactic Acid Mariusz (0.7-2.0) mmol/L Total Bilirubin 2.4 H (0.2-1.3) mg/dL Unconjugated Bilirubin 1.7 H (0.0-1.1) mg/dL Delta Bilirubin 0.7 H (0.0-0.2) mg/dL AST 101 H (14-36) U/L Troponin I (0.000-0.034) ng/mL Total Protein 6.0 L (6.3-8.2) g/dL Albumin 3.4 L (3.5-5.0) g/dL Procalcitonin (0.02-0.09) ng/mL Microbiology - Last 24 Hours (Table) 04/14/24 11:15 Blood Culture Gram Stain - Preliminary Blood 04/14/24 11:30 Blood Culture Gram Stain - Preliminary Blood Blood Culture - Preliminary Molecular ID Assessment and Plan Assessment: * Altered mental status, likely due to metabolic encephalopathy. Reasons multifactorial as mentioned below. * History of alcoholism, probable DTs, from alcohol withdrawal. History of polysubstance abuse. * Bacteremia, unclear cause, ID on board * Elevated cardiac enzymes, cardiology on board * Elevated liver enzymes * Lactic acidosis * Mild renal insufficiency * Rhabdomyolysis * Possible UTI Plan: * Continue Keppra 500 mg twice daily. Patient also on Topamax 51 g twice a day, but not receiving because of mental status. * EEG could not be performed today because of worsening mental status. Patient receiving Ativan 1 mg [id number] per CIWA protocol. Definitely need EEG to be performed in a.m. with PRN medication. * Continue lactulose. Ammonia level is normal 10. * Patient has elevated cardiac enzymes, cardiology and board. * Patient has positive blood cultures. ID on board. Patient currently on separate zone 2 g IV PB daily. * Continue CIWA protocol. * Neurology will follow clinically. * Other medical management as per IM. * Continue seizure precautions and seizure pads to prevent injuries. Sitter is present.
--- NOTE | 2024-04-16 09:23 | CDI ---
Documentation Clarification Form Date: 04/16/2024 From: Brittny Pittman Phone: [phone] Admit Date: 04/14/2024 10:42:00 AM Patient Name: Esha Garcia Visit Number: [id number] Discharge Date: ATTENTION: The Clinical Documentation Specialists (CDI) and [facility] Coding Staff appreciate your assistance in clarifying documentation. Please respond to the clarification below the line at the bottom and electronically sign. The CDI & [facility] Coding staff will review the response and follow-up if needed. Please note: Queries are made part of the Legal Health Record. If you have any questions, please contact the author of this message via ITS. Dr. Ludwig E Sheet: Rhabdomyolysis is documented in the Neurology consult 04/14 and in subsequent Neurology progress notes. Additional clarification regarding the type of rhabdomyolysis is requested. History/Risk Factors: 53-year-old female with a history of alcoholic liver cirrhosis, depression, seizure disorder, hepatitis C, heroin abuse who presents for AMS, found face down thought to have possible UTI and possible sepsis Clinical Indicators: 04/14 ED HPI: "Patient was found face down with her head in a trash can on the floor in her house by family members. She was not very responsive at that time. Family last saw her at some time last evening, at which time she was at her baseline and are unsure how long she has been on the ground." 04/14 Neurology consult, Assessment: "Rhabdomyolysis" 04/14 Creatinine Kinase: 708 Treatment: Normal Saline 1000cc bolus x2 on 04/14 then 130cc/hour 04/14 then 75cc/hour IV start 04/14 Please clarify the type of rhabdomyolysis, if known: [ ] Traumatic rhabdomyolysis due to fall [ ] Traumatic rhabdomyolysis due to prolonged immobility [ ] Other, please specify [ x ] Unable to Determine MTDD
--- NOTE | 2024-04-16 09:48 | CDI ---
Documentation Clarification Form Date: 04/16/2024 From: Brittny Pittman Phone: [phone] Admit Date: 04/14/2024 10:42:00 AM Patient Name: Esha Garcia Visit Number: [id number] Discharge Date: ATTENTION: The Clinical Documentation Specialists (CDI) and [facility] Coding Staff appreciate your assistance in clarifying documentation. Please respond to the clarification below the line at the bottom and electronically sign. The CDI & [facility] Coding staff will review the response and follow-up if needed. Please note: Queries are made part of the Legal Health Record. If you have any questions, please contact the author of this message via ITS. Dr. Ludwig E Sheet: The patient has possible sepsis documented in the H&P 04/14 and in subsequent IM notes. Based on this information and the findings below, is there an additional diagnosis that is clinically appropriate for this patient? History/Risk Factors: 53-year-old female with a history of alcoholic liver cirrhosis, depression, seizure disorder, hepatitis C, heroin abuse who presents for AMS, found face down thought to have possible UTI and possible sepsis Clinical Indicators: 04/14 Triage VS: 146/101, 98.8, 126, 22, 98% room air 04/14 Tmax: 99.9 on 04/14 04/14 H&P, Assessment: "Possible sepsis with high WBC, fever, UTI suspected, cellulitis of the left leg is felt less likely however cannot rule out other sources." 04/15 ID consult, Assessment:"1patient with a positive blood culture with gram- negative bacilli more likely urinary source. 2-positive blood culture with staph epi more likely skin contamination 3-blood culture repeated document clearance of bacteremia." 04/14, 04/15 WBC: 13.0, 11.3 04/14-04/15 Lactic Acid: 6.9, 2.4, 2.3, 2.0, 2.1, 1.7 04/14 Urinalysis: Appearance: Cloudy, Protein: 3+, Ketones: Trace, Blood: Moderate, Bilirubin: 1+, Leukocyte Esterase: Moderate, RBC: 14, WBC: 79, Bacteria: Occasional, Hyaline Casts: 9, Mucus: Occasional, Yeast(Budding): Many 04/14 Blood Culture: Gram positive cocci in clusters, Gram negative Bacilli Treatment: Normal Saline 1000cc bolus x2 on 04/14 then 130cc/hour 04/14 then 75cc/hour IV start 04/14 Rocephin 2gram IV once 04/14, then daily start 04/15 Is there an additional diagnosis that is clinically appropriate for this patient? [ ] Sepsis, due to UTI, present on admission [ ] Sepsis, due to UTI, developed during stay, not present on admission [ x ] Sepsis, present on admission [ ] Sepsis, developed during stay, not present on admission [ ] No additional diagnosis/not clinically significant [ ] Other, please specify [ ] Unable to determine SIRS Criteria: 2 or more of the following may indicate SIRS Temperature < 96.8F (36C) or > 101.0F (38.3C) Heart Rate > 90 bpm Respiratory Rate > 20 breaths/min or PaCO2 < 32 mmHg White Blood Cell Count > 12,000 or < 4,000 cells/mm3 or > 10% bands MTDD
--- NOTE | 2024-04-16 10:51 | P.CONS ---
History of Present Illness - Reason for Consult Consult date: 04/16/24 wound care - History of Present Illness This is a 53-year-old patient being seen on 3 S. for nonhealing ulceration to the left calf. Patient has a ulceration that measures approximately 2 x 2 x 0.2 cm with significant amount of eschar slough and nonviable tissue present with minimal granulation. Patient has serous drainage from the site. Patient also has a stage II pressure ulcer to the right heel. Patient is not responsive to verbal stimuli. Does respond to pain. Does not answer any questions. Review of systems: Unable to obtain related to patient's mental status Physical exam: General Appearance: Alert, cooperative, no distress, appears stated age. Skin: See HPI all other Skin color, texture, tugor normal, no rashes or lesions. Assessment: 1. Nonhealing ulceration left calf with fat layer exposure 2. Stage II pressure ulcer Plan: 1. Apply honey gel and bordered foam to the site wrap with Kerlix. Change Sunday. Patient would benefit from advanced wound care and wound care setting. We be happy to see her upon discharge. Thank you for the consultation any questions please contact the wound care center DNP note has been reviewed and discussed with Dr. Sears and the impression and plan of care has been directed as dictated. Past Medical History Past Medical History: Eye Disorder, GERD/Reflux, GI Bleed, Liver Disease, Musculoskeletal Disorder, Neurologic Disorder, Seizure Disorder Additional Past Medical History / Comment(s): SEIZURE FROM ETOH, SHINGLES 6 YERAS AGO, MURMUR, TORN CATILAGE IN KNEES, LIVER FAILURE IN PAST, HEP C - NEVER TX (PAST HEROIN USE), BULEMIA, ANXIETY/DEPRESSION, PAST SUICIDE ATTEMPTS, "IN OCTOBER DRANK RUBBING ALCOHOL". FAMILY STATED PT TAKES SUBOXONE TO HELP HER NOT DRINK AND FOR PAIN IN LEGS/KNEES. HEP C POSITIVE. History of Any Multi-Drug Resistant Organisms: MRSA Year Discovered:: 04/20/16 MDRO Source:: SPUTUM Past Surgical History: Hernia Repair, Uterine Ablation Additional Past Surgical History / Comment(s): NOVOSURE ENDOMETRIAL ABLATION, "THROAT BANDING" Past Anesthesia/Blood Transfusion Reactions: No Reported Reaction Additional Past Anesthesia/Blood Transfusion Reaction / Comm: Pt received previous blood transfusion at [facility] per past medical record. Past Psychological History: Anxiety, Bipolar, Depression, Panic Disorder Additional Psychological History / Comment(s): PAST SUICIDE ATTEMPT FROM OVERDOSE, HAS BEEN SEEN AT [facility]. Smoking Status: Current every day smoker Past Alcohol Use History: Abuse, Daily Past Drug Use History: Cocaine, Heroin, IV Drug Use Additional Drug Use History / Comment(s): PATIENT LAST USED HEROIN TWO YEARS AGO. - Past Family History Father History Unknown: Yes Family Medical History: No Reported History Mother Family Medical History: Cancer Additional Family Medical History / Comment(s): COLON AND LUNG CANCER - AT AGE 50 Medications and Allergies Home Medications Medication Instructions Recorded Confirmed Type Bumetanide [BUMEX] 0.5 mg PO DAILY 07/28/22 04/14/24 History Buprenorphine/Naloxone 8Mg/2Mg 1 film SL TID 07/28/22 04/14/24 History [Suboxone 8-2Mg Film] Mirtazapine [Remeron] 45 mg PO HS 07/28/22 04/14/24 History Propranolol LA [Inderal LA] 60 mg PO HS 07/28/22 04/14/24 History busPIRone HCL 15 mg PO BID 07/28/22 04/14/24 History Levothyroxine Sodium [Synthroid] 50 mcg PO DAILY 06/25/23 04/14/24 History Rifaximin [Xifaxan] 550 mg PO BID 06/25/23 04/14/24 History Topiramate 50 mg PO BID 08/27/23 04/14/24 History Baclofen [Lioresal] 10 mg PO HS 04/14/24 04/14/24 History Lactulose [Cephulac] 10 gm PO TID 04/14/24 04/14/24 History Midodrine [ProAmatine] 5 mg PO TID-W/MEALS 04/14/24 04/14/24 History Spironolactone [Aldactone] 25 mg PO DIRECTED 04/14/24 04/14/24 History chlorproMAZINE [Thorazine] 25 mg PO HS 04/14/24 04/14/24 History hydrOXYzine HCL [Atarax] 100 mg PO Q6H PRN 04/14/24 04/14/24 History levETIRAcetam [Keppra] 500 mg PO BID 04/14/24 04/14/24 History tiZANidine [Zanaflex] 4 mg PO HS 04/14/24 04/14/24 History Allergies Allergy/AdvReac Type Severity Reaction Status Date / Time Penicillins Allergy Severe Rash/Hives Verified 04/14/24 09:10 Physical Exam Vitals: Vital Signs Temp Pulse Pulse Resp BP BP BP 04/16/24 08:15 97.5 F L 91 16 141/90 04/16/24 03:11 97.8 F 96 18 115/71 04/16/24 00:00 98.4 F 85 14 109/70 04/15/24 20:00 97.6 F 94 18 155/93 04/15/24 15:58 97.6 F 87 17 155/95 04/15/24 13:24 93 17 133/94 04/15/24 12:37 97.7 F 77 16 137/87 04/15/24 11:57 101 H 16 142/105 Pulse Ox 04/16/24 08:15 95 04/16/24 03:11 95 04/16/24 00:00 96 04/15/24 20:00 96 04/15/24 15:58 96 04/15/24 13:24 94 L 04/15/24 12:37 97 04/15/24 11:57 97 Intake and Output 04/15/24 04/16/24 04/16/24 22:59 06:59 14:59 Intake Total 10 Output Total 200 250 Balance -190 -250 Intake: IV 10 Invasive Line 2 10 Oral 0 Output: Urine 200 250 Other: Voiding Method Indwelling Catheter Indwelling Catheter Indwelling Catheter Weight 63.503 kg Results CBC & Chem 7: 04/15/24 06:17 04/15/24 06:17 Labs: Microbiology - Last 24 Hours (Table) 04/14/24 09:15 Urine Culture - Preliminary Urine,Catheterized 04/14/24 11:30 Blood Culture Gram Stain - Preliminary Blood Blood Culture - Preliminary Coagulase Negative Staph Coagulase Negative Staph#2 Bacillus species Not Anthracis Gram Neg Bacilli Molecular ID 04/14/24 11:15 Blood Culture Gram Stain - Preliminary Blood Blood Culture - Preliminary Coagulase Negative Staph Coagulase Negative Staph#2 Assessment and Plan (1) Non-pressure chronic ulcer of left calf with fat layer exposed Current Visit: Yes Status: Acute Code(s): L97.222 - NON-PRESSURE CHRONIC ULCER OF LEFT CALF W FAT LAYER EXPOSED SNOMED Code(s): 48140800363734662 (2) Stage II pressure ulcer of right heel Current Visit: Yes Status: Acute Code(s): L89.612 - PRESSURE ULCER OF RIGHT HEEL, STAGE 2 SNOMED Code(s): 57935657647428
--- NOTE | 2024-04-16 11:17 | P.PN ---
Subjective Patient is a 53 years old female with past medical history of alcoholic liver cirrhosis, depression history of suicidal ideation, history of seizure disorder, GERD, GI bleed, hepatitis C, history of heroin abuse. Patient was brought from home for altered mental status, patient was found by EMS on her face down on the trash, with strong odor and unkempt. Patient currently is very confused does not follow commands and cannot provide information She is lying in bed looks agitated and moving her extremity continuously especially the lower extremity, does not looks like a seizure. Also we checked her meningeal signs and looks absent Patient cannot take her oral medication and she was found hypertensive and tachycardic in the emergency room, propranolol on hold because of patient cannot take oral medication. IV Lopressor, clonidine patch and nitroglycerin patches provided also to help her with the blood pressure and heart rate. She is mildly tachypneic, she has low-grade temperature 99.9. WBC is slightly elevated at 13,000 hemoglobin 17, sample looks hemoconcentrated and expected to go down with fluid. Baseline WBC is 5-8000, and basal hemoglobin 11-15 Creatinine is mildly elevated 1.3. Lactic acid was significantly elevated 6.9 came down with IV fluid 2.5 Creatinine 1.3 with baseline 0.9-1.0, EKG showing sinus tachycardia at [address]-T changes Chest x-ray showing chronic changes CT of the facial with no facial bone fracture CT of the head and neck is negative for acute process Ammonia level was 10 which is low Troponin is elevated 1.5-1.6 and looks steady. ABG showed normal pH 7.35 and pCO2 41 Serum alcohol and urine drug screen are requested and they are elevated Patient was started on ceftriaxone, CIWA protocol and thiamine Also started on her home dose of IV Keppra. Also patient has wound on her left leg about 2 to 3 inches in diameter with no active bleeding 04/15/2024 Patient still confused, she still agitated moving her legs bilaterally. She is nonverbal, does not open eyes spontaneously or to verbal or tactile stimuli However her abdomen looks soft with no evidence of tenderness or guarding, no right upper quadrant tenderness. No suprapubic or flank tenderness Patient saturating well on 2 L oxygen via nasal cannula Sitter at bedside Thibodeaux catheter in place Vitals are stable, blood pressure is slightly elevated. No more fever since admission. WBC trending down to 11.3, hemoglobin improved 14.1, creatinine back to reference range at 0.8. Lactic acid improved 92.0 which is the reference. Liver enzymes still mildly elevated and abdominal ultrasound reviewed by myself showing cirrhosis and splenomegaly with evidence of portal hypertension Bilirubin and liver enzymes mildly elevated. Patient remains on ceftriaxone, urine and blood cultures are pending. Patient with high CIWA score ranging between 12, 13 and 7. Neurologist evaluated the patient and EEG pending 04/16/2024 Patient remains confused, does not open eyes to verbal or tactile stimuli. She is less agitated than since admission however she can move both extremities symmetrically. There is no neck stiffness on admission or today. She has systolic murmur, I discussed the case with cardiology team will going to order echocardiogram for now however suspicion for SBE is low for now. She has a positive blood culture but looks like contamination. Repeat blood culture is requested Urine culture still pending Patient remains on ceftriaxone and gentle hydration. Blood pressure controlled Urine drug screen is negative on admission as well as serum alcohol. Abdominal ultrasound showing cirrhosis with splenomegaly. Ammonia level was low we will going to recheck ammonia level again EEG pending for possible seizure but there is no seizure-like activity at bedside We are going to discuss the case further with ID and neurology team for plan of care Active Medications Generic Name Dose Route Start Last Admin Trade Name Freq PRN Reason Stop Dose Admin Acetaminophen 325 mg 04/14/24 16:19 04/14/24 16:26 Acetaminophen Suppository 650 Mg Supp RECTAL 325 mg Q6HR PRN Administration Fever and/ or Pain Baclofen 10 mg 04/14/24 21:00 04/15/24 19:37 Baclofen 10 Mg Tab PO Not Given HS SHASHI Bumetanide 0.5 mg 04/15/24 09:00 04/16/24 08:10 Bumetanide 0.5 Mg Tablet PO Not Given DAILY SHASHI Buspirone HCl 15 mg 04/14/24 21:00 04/16/24 08:09 Buspirone Hcl 5 Mg Tab PO Not Given BID SHASHI Chlorpromazine HCl 25 mg 04/14/24 21:00 04/15/24 19:37 Chlorpromazine 25 Mg Tab PO Not Given HS SHASHI Clonidine HCl 1 patch 04/14/24 18:00 04/14/24 18:48 Clonidine 0.2 Mg/24hr Patch TRANSDERM 1 patch Q7D SHASHI Administration Hydroxyzine HCl 100 mg 04/14/24 16:13 Hydroxyzine Hcl 25 Mg Tab PO Q6H PRN Anxiety Ceftriaxone Sodium 2 gm/ 50 mls @ 100 mls/hr 04/15/24 09:00 04/16/24 08:20 Sodium Chloride IVPB 100 mls/hr DAILY SHASHI Administration Protocol Sodium Chloride 1,000 mls @ 75 mls/hr 04/14/24 14:00 04/16/24 06:11 Saline 0.9% IV 04/16/24 14:01 75 mls/hr .[id number] SHASHI Administration Labetalol HCl 10 mg 04/14/24 19:23 04/15/24 11:59 Labetalol 5 Mg/Ml Vial Mdv IVP 10 mg Q4H PRN Administration Blood Pressure - High Lactulose 10 gm 04/14/24 22:00 04/16/24 08:10 Lactulose 20 Gm/30 Ml Cup PO Not Given TID SHASHI Levetiracetam 500 mg 04/14/24 21:00 04/16/24 10:00 Levetiracetam Iv 500 Mg/5 Ml Vial IVP 500 mg Q12HR SHASHI Administration Levothyroxine Sodium 50 mcg 04/15/24 06:30 04/16/24 05:48 Levothyroxine 50 Mcg Tab PO Not Given DAILY@0630 SHASHI Lorazepam 1 mg 04/14/24 10:54 04/16/24 03:16 Lorazepam 2 Mg/Ml Inj IV 1 mg Q1HR PRN Administration CIWA 10 to 15 Lorazepam 1 mg 04/14/24 10:54 04/15/24 12:00 Lorazepam 2 Mg/Ml Inj IV 1 mg Q2HR PRN Administration CIWA 8 or 9 Lorazepam 2 mg 04/14/24 10:54 Lorazepam 2 Mg/Ml Inj IV Q6HR PRN Seizures Midodrine 5 mg 04/14/24 17:30 04/16/24 11:16 Midodrine 5 Mg Tab PO Not Given TID-W/MEALS SHASHI Mirtazapine 45 mg 04/14/24 21:00 04/15/24 19:37 Mirtazapine 45 Mg Tablet PO Not Given HS SHASHI Naloxone HCl 0.2 mg 04/14/24 10:57 Naloxone 0.4 Mg/Ml 1 Ml Vial IV Q2M PRN Opioid Reversal Nitroglycerin 0.5 inch 04/15/24 00:00 04/16/24 06:11 Nitroglycerin Oint 1 Inch/Gm Packet TOPICAL 0.5 inch Q6HR [facility] Administration Non-Formulary Medication 1 film 04/14/24 22:00 04/16/24 08:09 Buprenorphine/Naloxone 8mg/2mg SUBLINGUAL Not Given TID [facility] Ondansetron HCl 4 mg 04/14/24 10:57 Ondansetron 4 Mg/2 Ml Vial IVP Q8HR PRN Nausea And Vomiting Pantoprazole Sodium 40 mg 04/15/24 09:00 04/16/24 08:20 Pantoprazole 40 Mg/10 Ml Vial IV 40 mg DAILY [facility] Administration Propranolol HCl 60 mg 04/14/24 21:00 04/15/24 19:37 Propranolol La 60 Mg Cap.Sa.24h PO Not Given HS [facility] Rifaximin 550 mg 04/14/24 21:00 04/16/24 08:28 Rifaximin 550 Mg Tablet PO 05/14/24 21:01 Not Given BID [facility] Protocol Spironolactone 25 mg 04/14/24 21:00 04/16/24 08:28 Spironolactone 25 Mg Tab PO Not Given BID [facility] Thiamine HCl 100 mg 04/15/24 09:00 04/16/24 08:28 Thiamine 100 Mg Tab PO Not Given DAILY [facility] Tizanidine HCl 4 mg 04/14/24 21:00 04/15/24 19:38 Tizanidine 4 Mg Tab PO Not Given [facility] Topiramate 50 mg 04/14/24 21:00 04/16/24 08:28 Topiramate 25 Mg Tab PO Not Given BID [facility] Objective - Vital Signs Vital signs: Vital Signs Temp 97.5 F L 04/16/24 08:15 Pulse 91 04/16/24 08:15 Resp 16 04/16/24 08:15 BP 141/90 04/16/24 08:15 Pulse Ox 95 04/16/24 08:15 FiO2 Intake & Output 04/15/24 04/16/24 04/16/24 18:59 06:59 18:59 Intake Total 0 10 Output Total 500 450 Balance -500 -440 Weight 63.503 kg Intake: IV 10 Invasive Line 2 10 Oral 0 Output: Urine 500 450 Other: Voiding Method Indwelling Catheter Indwelling Catheter Indwelling Catheter - Exam -GENERAL: The patient is confused, does not respond to stimuli, agitated HEENT: Pupils are round and equally reacting to light. EOMI. No scleral icterus. No conjunctival pallor. Normocephalic, atraumatic. No pharyngeal erythema. No thyromegaly. CARDIOVASCULAR: S1 and S2 present. No murmurs, rubs, or gallops. PULMONARY: Chest is clear to auscultation, no wheezing , no crackles. -ABDOMEN: Soft, nontender, nondistended, normoactive bowel sounds. No palpable organomegaly. Thibodeaux catheter in place MUSCULOSKELETAL: No joint swelling or deformity. -EXTREMITIES: No cyanosis, clubbing, or pedal edema. Wound with no evidence of infection on the left lateral leg NEUROLOGICAL: Gross neurological examination did not reveal any focal deficits. SKIN: No rashes. no petechiae. - Labs CBC & Chem 7: 04/15/24 06:17 04/15/24 06:17 Labs: Microbiology - Last 24 Hours (Table) 04/14/24 09:15 Urine Culture - Preliminary Urine,Catheterized 04/14/24 11:30 Blood Culture Gram Stain - Preliminary Blood Blood Culture - Preliminary Coagulase Negative Staph Coagulase Negative Staph#2 Bacillus species Not Anthracis Gram Neg Bacilli Molecular ID 04/14/24 11:15 Blood Culture Gram Stain - Preliminary Blood Blood Culture - Preliminary Coagulase Negative Staph Coagulase Negative Staph#2 Assessment and Plan Assessment: Altered mental status, could be metabolic/toxic encephalopathy associated with acute Delirium Alcohol use disorder, possible alcohol withdrawal delirium tremens Dehydration and acute kidney injury most likely prerenal Possible sepsis with high WBC, fever, UTI suspected, cellulitis of the left leg is felt less likely however cannot rule out other sources Seizure disorder on Keppra Alcoholic liver cirrhosis Left leg wound History of GERD History of GI bleed Hepatitis C history of heroin abuse Plan: Continue with ceftriaxone Continue with normal saline 75 mL/h CIWA protocol and thiamine While patient cannot take oral will put the patient on clonidine 0.2 mg patch and nitroglycerin topical Follow-up blood culture Follow-up urine culture Cardiology and neurology consult Infectious disease consult on the case Labs and medication were reviewed.. Continue same treatment. Continue with symptomatic treatment. Resume home medication. Monitor labs and vitals. DVT and GI prophylaxis. Further recommendations as per clinical course of the patient DVT prophylaxis: Subcutaneous heparin GI Prophylaxis: Pepcid PT/OT: Pending Prognosis is guarded
[2024-04-16 12:20] LABS: VBG PH 7.37 (7.31-7.41)
[2024-04-16 12:26] LABS: Basophils % (A) 0 %; Eosinophils % (A) 0 %; HCT 35.5 % (34.0-46.0); HGB 11.7 gm/dL (11.4-16.0); Lymphocytes # (A) 1.1 k/uL (1.0-4.8); Lymphocytes % (A) 26 %; MCH 30.9 pg (25.0-35.0); MCV 93.6 fL (80.0-100.0); Mean Platelet Volume 9.8; Monocytes # (A) 0.3 k/uL (0-1.0); Monocytes % (A) 8 %; Neutrophils # (A) 2.8 k/uL (1.3-7.7); Neutrophils % (A) 64 %; Poikilocytosis Slight; RBC 3.79 m/uL (3.80-5.40); RDW 15.5 % (11.5-15.5); WBC 4.4 k/uL (3.8-10.6)
--- NOTE | 2024-04-16 12:38 | CA ---
Transthoracic Echo Report Name: Esha Garcia Age: 53 Gender: F : 1970 Exam Date: 04/15/2024 17:13 Exam Location: [facility] Ht (in): 66 Wt (lb): 140 Ordering Physician: Conchis Owusu Attending/Referring Phys: [id number], Francoise Cigarette Roller Elza Khan, SANDRO Procedure CPT: Indications: lv function, elevated trops Cardiac Hx: TDS: Pt very uncooperative. Technical Quality: Very technically difficult study Contrast 1: Total Dose (mL): Contrast 2: Total Dose (mL): MEASUREMENTS (Male / Female) Normal Values 2D ECHO LV Diastolic Diameter PLAX 4.3 cm 4.2 - 5.9 / 3.9 - 5.3 cm LV Systolic Diameter PLAX 2.7 cm IVS Diastolic Thickness 1.4 cm 0.6 - 1.0 / 0.6 - 0.9 cm LVPW Diastolic Thickness 1.4 cm 0.6 - 1.0 / 0.6 - 0.9 cm LV Relative Wall Thickness 0.7 RV Internal Dim ED PLAX 2.2 cm LA Systolic Diameter LX 4.9 cm 3.0 - 4.0 / 2.7 - 3.8 cm M-MODE Aortic Root Diameter MM 3.2 cm LA Systolic Diameter MM 4.4 cm LA Ao Ratio MM 1.4 AV Cusp Separation MM 1.7 cm DOPPLER AV Peak Velocity 222.2 cm/s AV Peak Gradient 19.8 mmHg FINDINGS Left Ventricle Left ventricular ejection fraction is estimated at 60-65 %. Moderately increased septal wall thickness. Moderately increased posterior wall thickness. No obvious regional wall motion abnormalities. Right Ventricle Normal RV size and systolic function. RVSP could not be estimated Right Atrium Normal right atrial size. Left Atrium Severely increased left atrial diameter. Mildly increased left atrial area. Mitral Valve No significant mitral regurgitation appreciated on limited imaging Aortic Valve Aortic valve not well visualized. Trace to mild aortic regurgitation. Increased AV velocity, AV Vmax is 2.22 m/s. Tricuspid Valve Not well-visualized Pulmonic Valve Not well-visualized Pericardium No pericardial or pleural effusion. Aorta Not CONCLUSIONS Very technically difficult study. Left ventricular ejection fraction is estimated at 60-65 %. Moderate concentric LV No obvious regional wall motion abnormalities. No obvious valve pathology on limited views No pericardial effusion Previewed by: Dr Harrison Lance (Electronically Signed) Final Date: 16 April 2024 12:37
[2024-04-16 12:41] LABS: Platelet Count 47 k/uL (150-450)
[2024-04-16 12:57] LABS: ALT 28 U/L (4-34); AST 74 U/L (14-36); African American GFR (CKD) >90 (>60 ml/min/1.73 sqM); Albumin 2.9 g/dL (3.5-5.0); Alkaline Phosphatase 80 U/L (38-126); Anion Gap 7 mmol/L; Bilirubin, Delta 0.7 mg/dL (0.0-0.2); Bilirubin,Unconjugated 0.7 mg/dL (0.0-1.1); Blood Urea Nitrogen 18 mg/dL (7-17); Carbon Dioxide 20 mmol/L (22-30); Chloride 116 mmol/L (98-107); Glucose 85 mg/dL (74-99); Non-African American GFR(CKD) >90 (>60 ml/min/1.73 sqM); Potassium 3.8 mmol/L (3.5-5.1); Sodium 143 mmol/L (137-145); Total Bilirubin 1.4 mg/dL (0.2-1.3); Total Protein 5.3 g/dL (6.3-8.2)
--- NOTE | 2024-04-16 13:23 | P.PN ---
Subjective HISTORY OF PRESENT ILLNESS: This is a 53-year-old female with a past medical history significant for alcoholic liver disease, GERD, GI bleed, hepatitis, and heroin abuse. 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 We have been asked to see the patient in consultation for elevated troponins. Patient examined at the bedside emergency room. Patient is confused at the time of examination unable to provide any meaningful history. There is no family present. According to ER documentation, the patient was found facedown with her head in a trash can on the floor. DIAGNOSTICS: - EKG reveals sinus tachycardia with no signs of acute ischemia. - Chest xray chronic changes without evidence for acute pulmonary process. - Laboratory data: WBC 11.3. Hemoglobin 14.1. Sodium 135. Potassium 4.1. BUN 16. Creatinine 0.81. Lactic acid 2.1. Troponin 1.500. 1.620. 1.510. - Current home cardiac medications include Bumex 0.5 mg daily, midodrine 5 mg 3 times a day with meals, propranolol 60 mg at night, Aldactone 25 mg daily. - Most recent echocardiogram obtained in February 2023 revealed ejection fraction 65 to 70%, moderate to severe mitral regurgitation septal hypertrophy with turbulent flow across the left ventricular outflow track 04/16/2024 Patient examined at the bedside. Patient remains confused. She has a food safety manager present. Patient unable to answer any questions at the time of examination. Echocardiogram completed revealing ejection fraction 60 to 65%, no significant mitral regurgitation appreciated on limited imaging, trace to mild aortic regurgitation. PHYSICAL EXAM: VITAL SIGNS: Reviewed. GENERAL: Well-developed in no acute distress. HEENT: Head is normocephalic. Pupils are equal, round. Sclerae anicteric. Mucous membranes of the mouth are moist. Neck supple. No JVD or thyromegaly LUNGS: Respirations even and unlabored. Lungs essentially clear to auscultation bilaterally. HEART: Regular rate and rhythm. S1 and S2 heard. Systolic murmur noted. ABDOMEN: Soft. Nondistended. Nontender. EXTREMITIES: Normal range of motion. No clubbing or cyanosis. Peripheral pulses intact. No lower extremity edema NEUROLOGIC: Confused. Lethargic. ASSESSMENT: Altered mental status Bacteremia Suspected urinary tract infection Elevated troponins likely secondary to acute myocardial injury without ischemia secondary to metabolic encephalopathy Moderate to severe mitral regurgitation History of alcohol abuse Elevated lactic acid History of seizure disorder History of GERD History of hepatitis Nicotine dependence PLAN: 2D echo obtained and reviewed Infectious disease following for positive blood cultures. Continue antibiotics. No plans for NEFTALI from a cardiac standpoint Further recommendations pending patient course Nurse practitioner note has been reviewed by physician. Signing provider agrees with the documented findings, assessment, and plan of care documented by DIRECTOR OF HOUSING AND ENERGY SERVICES as a scribe. Objective - Vital Signs Vital signs: Vital Signs Temp 97.4 F L 04/16/24 11:23 Pulse 91 04/16/24 11:23 Resp 16 04/16/24 11:23 BP 159/96 04/16/24 11:23 Pulse Ox 99 04/16/24 11:23 FiO2 Intake & Output 04/15/24 04/16/24 04/16/24 18:59 06:59 18:59 Intake Total 0 10 Output Total 500 450 Balance -500 -440 Weight 63.503 kg Intake: IV 10 Invasive Line 2 10 Oral 0 Output: Urine 500 450 Other: Voiding Method Indwelling Catheter Indwelling Catheter Indwelling Catheter - Labs CBC & Chem 7: 04/16/24 11:42 04/16/24 11:42 Labs: Abnormal Lab Results - Last 24 Hours (Table) 04/16/24 04/16/24 04/16/24 Range/Units 11:42 11:42 11:42 RBC 3.79 L (3.80-5.40) m/uL Plt Count 47 L (150-450) k/uL VBG HCO3 22 L (24-28) mmol/L Chloride 116 H (98-107) mmol/L Carbon Dioxide 20 L (22-30) mmol/L BUN 18 H (7-17) mg/dL Total Bilirubin 1.4 H (0.2-1.3) mg/dL Delta Bilirubin 0.7 H (0.0-0.2) mg/dL AST 74 H (14-36) U/L Total Protein 5.3 L (6.3-8.2) g/dL Albumin 2.9 L (3.5-5.0) g/dL Microbiology - Last 24 Hours (Table) 04/14/24 09:15 Urine Culture - Preliminary Urine,Catheterized 04/14/24 11:30 Blood Culture Gram Stain - Preliminary Blood Blood Culture - Preliminary Coagulase Negative Staph Coagulase Negative Staph#2 Bacillus species Not Anthracis Gram Neg Bacilli Molecular ID 04/14/24 11:15 Blood Culture Gram Stain - Preliminary Blood Blood Culture - Preliminary Coagulase Negative Staph Coagulase Negative Staph#2
[2024-04-16] MEDS: ACYCLOVIR SODIUM 650 MG in SODIUM CHLORIDE 0.9% 100 ML IVPB SCH (13:59)
[2024-04-16 16:44] LABS: Glucose,Whole Blood 90 mg/dL (70-110)
--- NOTE | 2024-04-16 18:05 | P.PN ---
Subjective Progress Note Date: 04/16/24 Principal diagnosis: Reason for follow-up is Bacteremia Patient is a 53-year-old female with a past medical history significant for reflux seizure from alcoholism liver disease GI bleed bipolar depression current everyday smoker patient has been brought to the hospital for evaluation of altered mental status changes did have a low-grade fever positive UA and blood culture with gram-negative prompting this consultation. On today's evaluation that is 04/16/2024 patient remains to be afebrile patient is breathing comfortably currently 98% on room air patient remains to be lethargic unresponsive and cannot provide any history no vomiting or diarrhea has been reported. Patient white count is 4.4, creatinine 0.73 Objective - Vital Signs Vital signs: Vital Signs Temp 97.4 F L 04/16/24 11:23 Pulse 91 04/16/24 11:23 Resp 16 04/16/24 11:23 BP 159/96 04/16/24 11:23 Pulse Ox 99 04/16/24 11:23 FiO2 Intake & Output 04/15/24 04/16/24 04/16/24 18:59 06:59 18:59 Intake Total 0 10 Output Total 500 450 Balance -500 -440 Weight 63.503 kg Intake: IV 10 Invasive Line 2 10 Oral 0 Output: Urine 500 450 Other: Voiding Method Indwelling Catheter Indwelling Catheter Indwelling Catheter - Exam GENERAL DESCRIPTION: Middle-aged female lying in bed in no distress RESPIRATORY SYSTEM: Unlabored breathing , decreased breath sounds at bases HEART: S1 S2 regular rate and rhythm , ABDOMEN: Soft , no tenderness EXTREMITIES: No edema feet - Labs CBC & Chem 7: 04/16/24 11:42 04/16/24 11:42 Labs: Abnormal Lab Results - Last 24 Hours (Table) 04/16/24 04/16/24 04/16/24 Range/Units 11:42 11:42 11:42 RBC 3.79 L (3.80-5.40) m/uL Plt Count 47 L (150-450) k/uL VBG HCO3 22 L (24-28) mmol/L Chloride 116 H (98-107) mmol/L Carbon Dioxide 20 L (22-30) mmol/L BUN 18 H (7-17) mg/dL Total Bilirubin 1.4 H (0.2-1.3) mg/dL Delta Bilirubin 0.7 H (0.0-0.2) mg/dL AST 74 H (14-36) U/L Total Protein 5.3 L (6.3-8.2) g/dL Albumin 2.9 L (3.5-5.0) g/dL Microbiology - Last 24 Hours (Table) 04/14/24 09:15 Urine Culture - Preliminary Urine,Catheterized 04/14/24 11:30 Blood Culture Gram Stain - Preliminary Blood Blood Culture - Preliminary Coagulase Negative Staph Coagulase Negative Staph#2 Bacillus species Not Anthracis Gram Neg Bacilli Molecular ID 04/14/24 11:15 Blood Culture Gram Stain - Preliminary Blood Blood Culture - Preliminary Coagulase Negative Staph Coagulase Negative Staph#2 Assessment and Plan (1) Bacteremia Current Visit: Yes Status: Acute Code(s): R78.81 - BACTEREMIA SNOMED Code(s): 9850417 (2) UTI (urinary tract infection) Current Visit: Yes Status: Acute Code(s): N39.0 - URINARY TRACT INFECTION, SITE NOT SPECIFIED SNOMED Code(s): 19869229 Plan: 1patient with a positive blood culture with gram-negative bacilli more likely urinary source as the patient abdomen was soft on clinical examination patient did have a abdominal ultrasound and the gallbladder was within normal limit currently do not have any abdominal cellulitis and neck was supple on clinical lamination 2-positive blood culture with staph epi more likely skin contamination 3-blood culture has been repeated document clearance of bacteremia 4-patient to continue with Rocephin while waiting for the culture to finalize, discussed with the neurology may benefit from LP keeping in mind persistent neurological symptoms Dictation was produced using [employer] dictation software. please excuse any grammatical, word or spelling errors. Time with Patient: Less than 30
--- NOTE | 2024-04-16 22:34 | EEG ---
DATE OF SERVICE: 04/16/2024 ELECTROENCEPHALOGRAM REPORT PREAMBLE: This is a 53-year-old female, came with altered mental status. Family found her on the floor with head in the trash can and not responding to them. EEG was attempted yesterday, but the patient did not cooperate. Today, the patient received Ativan 3 mg and Haldol 5 mg prior to starting the EEG. CURRENT MEDICATIONS: 1. . 2. Bumex. 3. BuSpar. 4. Thorazine. 5. Catapres. 6. Keppra. 7. Ativan. 8. Remeron. 9. Protonix. 10.Inderal. 11.Aldactone. 12. . 13.Zanaflex. EEG FINDINGS: This is a 21-channel digital EEG recorded with video component, utilizing 10/20 international system with referential and bipolar montages. Background consists of moderately well developed, but disorganized, predominantly [id number] amplitude, diffuse 2-3 hertz delta waves, intermixed with some theta activity as seen in bihemispheric region. Some triphasic type waves were seen in the frontal region intermittently sporadically during early part of the study. Some sleep spindles were also seen frequently during the study. At later part of the study, these triphasic type waves become somewhat more rhythmic at 1 hertz, extend towards the posterior head region as well, which may suggest underlying cortical irritability. No electrographic seizure was seen. EKG channel showed no obvious arrhythmia. IMPRESSION: This is a significantly abnormal EEG due to presence of disorganized background with slowing, suggestive of [id number] encephalopathy. Some intermittent sleep was also seen during the study. There were presence of frequent triphasic waves, which at times become more rhythmic at 1 hertz, which may suggest underlying cortical irritability and may suggest tendency for seizure. No electrographic seizure however was recorded. Suggest prolonged EEG if clinically indicated. MMODL / IJN: [id number] / [facility]ITALLeo
[2024-04-17 07:08] LABS: Glucose,Whole Blood 82 mg/dL (70-110)
--- NOTE | 2024-04-17 07:55 | P.PN ---
Subjective Progress Note Date: 04/16/24 04/16/2024: Patient was seen for a follow-up. Patient continues to be very encephalopathic, somnolent. Patient has received numerous doses of Ativan, and also Haldol 5 mg for EEG. Therefore patient is very groggy. Examination limited. 04/15/2024: Patient was seen for a follow-up. Patient continues to be severely encephalopathic, very restless, moving her extremities randomly. Patient lifts her legs up and throws it down, sometimes hitting the side rail. Recommend seizure precautions and seizure pads. Patient could not have EEG performed today because of severe altered mental status. Sitter was present, who states patient is "out of it", mostly sleeping, not talking. No seizures reported. Objective - Vital Signs Vital signs: Vital Signs Temp 97.4 F L 04/16/24 11:23 Pulse 91 04/16/24 11:23 Resp 16 04/16/24 11:23 BP 159/96 04/16/24 11:23 Pulse Ox 99 04/16/24 11:23 FiO2 Intake & Output 04/15/24 04/16/24 04/16/24 18:59 06:59 18:59 Intake Total 0 10 Output Total 500 450 Balance -500 -440 Weight 63.503 kg Intake: IV 10 Invasive Line 2 10 Oral 0 Output: Urine 500 450 Other: Voiding Method Indwelling Catheter Indwelling Catheter Indwelling Catheter - Exam Patient's severely encephalopathic, somnolent from receiving Ativan and Haldol. Neck appears supple. No obvious seizure-like activity noted. - Labs CBC & Chem 7: 04/16/24 11:42 04/16/24 11:42 Labs: Abnormal Lab Results - Last 24 Hours (Table) 04/16/24 Range/Units 11:42 VBG HCO3 22 L (24-28) mmol/L Microbiology - Last 24 Hours (Table) 04/14/24 09:15 Urine Culture - Preliminary Urine,Catheterized 04/14/24 11:30 Blood Culture Gram Stain - Preliminary Blood Blood Culture - Preliminary Coagulase Negative Staph Coagulase Negative Staph#2 Bacillus species Not Anthracis Gram Neg Bacilli Molecular ID 04/14/24 11:15 Blood Culture Gram Stain - Preliminary Blood Blood Culture - Preliminary Coagulase Negative Staph Coagulase Negative Staph#2 Assessment and Plan Assessment: * Altered mental status, likely due to metabolic encephalopathy. Reasons multifactorial as mentioned below. Rule out encephalitis. * History of alcoholism, probable DTs, from alcohol withdrawal. History of polysubstance abuse. * Bacteremia, unclear cause, ID on board * Elevated cardiac enzymes, cardiology on board * Elevated liver enzymes * Lactic acidosis * Mild renal insufficiency * Rhabdomyolysis * Possible UTI * Thrombocytopenia Plan: * Continue Keppra 500 mg IV twice daily. Patient also on Topamax 50 mg twice a day, but not receiving because of mental status. * EEG was performed today, which was significantly abnormal due to presence of disorganized background with slowing, suggestive of moderate to severe encephalopathy. Some intermittent sleep was also seen during the study. There were presence of frequent triphasic waves, which at times become more rhythmic at 1 Hz which may suggest underlying cortical irritability and may suggest tendency for seizures. No electrolyte and seizure however was recorded. Suggest prolonged EEG, if clinically indicated. * Increase Keppra to 1000 mg twice a day. * Discussed with primary physician and infectious disease. Lumbar puncture was considered, however patient has significant thrombocytopenia with platelets of 75,000. Repeat CBC with platelets of 47,000. LP contraindicated at this time. Hematology consulted for thrombocytopenia. We will perform LP, when cleared by hematology. * Patient has positive blood cultures. Infectious disease on board. Patient currently on ceftriaxone 2 g IV PB daily. * We will empirically start acyclovir 10 mg/kg IV every 8 hours. * Continue lactulose. Ammonia level is normal 10. * Patient has elevated cardiac enzymes, cardiology and board. * Continue CIWA protocol. * Other medical management as per IM. * Continue seizure precautions and seizure pads to prevent injuries. Sitter is present.
[2024-04-17] MEDS: DEXTROSE 5%-0.9% NACL 1,000 ML IV SCH (08:17)
[2024-04-17] MEDS: levETIRAcetam IV 500 MG/5 ML VIAL IVP SCH (08:29)
[2024-04-17 11:24] LABS: Glucose,Whole Blood 100 mg/dL (70-110)
--- NOTE | 2024-04-17 11:47 | P.PN ---
Subjective Patient is a 53 years old female with past medical history of alcoholic liver cirrhosis, depression history of suicidal ideation, history of seizure disorder, GERD, GI bleed, hepatitis C, history of heroin abuse. Patient was brought from home for altered mental status, patient was found by EMS on her face down on the trash, with strong odor and unkempt. Patient currently is very confused does not follow commands and cannot provide information She is lying in bed looks agitated and moving her extremity continuously especially the lower extremity, does not looks like a seizure. Also we checked her meningeal signs and looks absent Patient cannot take her oral medication and she was found hypertensive and tachycardic in the emergency room, propranolol on hold because of patient cannot take oral medication. IV Lopressor, clonidine patch and nitroglycerin patches provided also to help her with the blood pressure and heart rate. She is mildly tachypneic, she has low-grade temperature 99.9. WBC is slightly elevated at 13,000 hemoglobin 17, sample looks hemoconcentrated and expected to go down with fluid. Baseline WBC is 5-8000, and basal hemoglobin 11-15 Creatinine is mildly elevated 1.3. Lactic acid was significantly elevated 6.9 came down with IV fluid 2.5 Creatinine 1.3 with baseline 0.9-1.0, EKG showing sinus tachycardia at [address]-T changes Chest x-ray showing chronic changes CT of the facial with no facial bone fracture CT of the head and neck is negative for acute process Ammonia level was 10 which is low Troponin is elevated 1.5-1.6 and looks steady. ABG showed normal pH 7.35 and pCO2 41 Serum alcohol and urine drug screen are requested and they are elevated Patient was started on ceftriaxone, CIWA protocol and thiamine Also started on her home dose of IV Keppra. Also patient has wound on her left leg about 2 to 3 inches in diameter with no active bleeding 04/15/2024 Patient still confused, she still agitated moving her legs bilaterally. She is nonverbal, does not open eyes spontaneously or to verbal or tactile stimuli However her abdomen looks soft with no evidence of tenderness or guarding, no right upper quadrant tenderness. No suprapubic or flank tenderness Patient saturating well on 2 L oxygen via nasal cannula Sitter at bedside Thibodeaux catheter in place Vitals are stable, blood pressure is slightly elevated. No more fever since admission. WBC trending down to 11.3, hemoglobin improved 14.1, creatinine back to reference range at 0.8. Lactic acid improved 92.0 which is the reference. Liver enzymes still mildly elevated and abdominal ultrasound reviewed by myself showing cirrhosis and splenomegaly with evidence of portal hypertension Bilirubin and liver enzymes mildly elevated. Patient remains on ceftriaxone, urine and blood cultures are pending. Patient with high CIWA score ranging between 12, 13 and 7. Neurologist evaluated the patient and EEG pending 04/16/2024 Patient remains confused, does not open eyes to verbal or tactile stimuli. She is less agitated than since admission however she can move both extremities symmetrically. There is no neck stiffness on admission or today. She has systolic murmur, I discussed the case with cardiology team will going to order echocardiogram for now however suspicion for SBE is low for now. She has a positive blood culture but looks like contamination. Repeat blood culture is requested Urine culture still pending Patient remains on ceftriaxone and gentle hydration. Blood pressure controlled Urine drug screen is negative on admission as well as serum alcohol. Abdominal ultrasound showing cirrhosis with splenomegaly. Ammonia level was low we will going to recheck ammonia level again EEG pending for possible seizure but there is no seizure-like activity at bedside We are going to discuss the case further with ID and neurology team for plan of care 04/17/2024 Patient mentation remains severely impaired, per staff she woke up for short time yesterday around 10 PM and she was oriented x 1 but overnight and this morning she is confused like before. She is not responding to verbal or tactile stimuli. No abnormal movements. No seizure-like activities. She remains on broad-spectrum antibiotic I discussed the case with hematology team they recommend to do lumbar puncture together with platelet transfusion Also patient Keppra dose increased per neurologist Was still pending family to call back. Active Medications Generic Name Dose Route Start Last Admin Trade Name Freq PRN Reason Stop Dose Admin Acetaminophen 325 mg 04/14/24 16:19 04/16/24 18:19 Acetaminophen Suppository 650 Mg Supp RECTAL 325 mg Q6HR PRN Administration Fever and/ or Pain Baclofen 10 mg 04/14/24 21:00 04/16/24 20:48 Baclofen 10 Mg Tab PO 10 mg HS SHASHI Administration Bumetanide 0.5 mg 04/15/24 09:00 04/17/24 08:37 Bumetanide 0.5 Mg Tablet PO Not Given DAILY SHASHI Buspirone HCl 15 mg 04/14/24 21:00 04/17/24 08:37 Buspirone Hcl 5 Mg Tab PO Not Given BID SHASHI Chlorpromazine HCl 25 mg 04/14/24 21:00 04/16/24 20:48 Chlorpromazine 25 Mg Tab PO 25 mg HS SHASHI Administration Clonidine HCl 1 patch 04/14/24 18:00 04/14/24 18:48 Clonidine 0.2 Mg/24hr Patch TRANSDERM 1 patch Q7D SHASHI Administration Hydroxyzine HCl 100 mg 04/14/24 16:13 Hydroxyzine Hcl 25 Mg Tab PO Q6H PRN Anxiety Ceftriaxone Sodium 2 gm/ 50 mls @ 100 mls/hr 04/15/24 09:00 04/17/24 08:29 Sodium Chloride IVPB 100 mls/hr DAILY SHASHI Administration Protocol Acyclovir Sodium 650 mg/ 113 mls @ 100 mls/hr 04/16/24 14:00 04/17/24 06:18 Sodium Chloride IVPB 100 mls/hr Q8H SHASHI Administration Dextrose/Sodium Chloride 1,000 mls @ 75 mls/hr 04/17/24 06:30 04/17/24 08:17 Dextrose 5%-Ns Iv Soln IV 75 mls/hr .[id number] SHASHI Administration Labetalol HCl 10 mg 04/14/24 19:23 04/15/24 11:59 Labetalol 5 Mg/Ml Vial Mdv IVP 10 mg Q4H PRN Administration Blood Pressure - High Lactulose 10 gm 04/14/24 22:00 04/17/24 08:37 Lactulose 20 Gm/30 Ml Cup PO Not Given TID SHASHI Levetiracetam 1,000 mg 04/17/24 09:00 04/17/24 08:29 Levetiracetam Iv 500 Mg/5 Ml Vial IVP 1,000 mg Q12HR SHASHI Administration Levothyroxine Sodium 50 mcg 04/15/24 06:30 04/17/24 06:16 Levothyroxine 50 Mcg Tab PO Not Given DAILY@0630 SHASHI Lorazepam 1 mg 04/14/24 10:54 04/16/24 03:16 Lorazepam 2 Mg/Ml Inj IV 1 mg Q1HR PRN Administration CIWA 10 to 15 Lorazepam 1 mg 04/14/24 10:54 04/15/24 12:00 Lorazepam 2 Mg/Ml Inj IV 1 mg Q2HR PRN Administration CIWA 8 or 9 Lorazepam 2 mg 04/14/24 10:54 Lorazepam 2 Mg/Ml Inj IV Q6HR PRN Seizures Midodrine 5 mg 04/14/24 17:30 04/17/24 11:00 Midodrine 5 Mg Tab PO Not Given TID-W/MEALS SHASHI Mirtazapine 45 mg 04/14/24 21:00 04/16/24 20:48 Mirtazapine 45 Mg Tablet PO 45 mg HS SHASHI Administration Naloxone HCl 0.2 mg 04/14/24 10:57 Naloxone 0.4 Mg/Ml 1 Ml Vial IV Q2M PRN Opioid Reversal Nitroglycerin 0.5 inch 04/15/24 00:00 04/17/24 11:01 Nitroglycerin Oint 1 Inch/Gm Packet TOPICAL 0.5 inch Q6HR SHASHI Administration Non-Formulary Medication 1 film 04/14/24 22:00 04/17/24 08:19 Buprenorphine/Naloxone 8mg/2mg SUBLINGUAL Not Given TID SHASHI Ondansetron HCl 4 mg 04/14/24 10:57 Ondansetron 4 Mg/2 Ml Vial IVP Q8HR PRN Nausea And Vomiting Pantoprazole Sodium 40 mg 04/15/24 09:00 04/17/24 08:29 Pantoprazole 40 Mg/10 Ml Vial IV 40 mg DAILY SHASHI Administration Propranolol HCl 60 mg 04/14/24 21:00 04/16/24 20:48 Propranolol La 60 Mg Cap.Sa.24h PO 60 mg HS SHASHI Administration Rifaximin 550 mg 04/14/24 21:00 04/17/24 08:26 Rifaximin 550 Mg Tablet PO 05/14/24 21:01 Not Given BID [facility] Protocol Spironolactone 25 mg 04/14/24 21:00 04/17/24 08:37 Spironolactone 25 Mg Tab PO Not Given BID SHASHI Thiamine HCl 100 mg 04/15/24 09:00 04/17/24 08:37 Thiamine 100 Mg Tab PO Not Given DAILY SHASHI Tizanidine HCl 4 mg 04/14/24 21:00 04/16/24 20:49 Tizanidine 4 Mg Tab PO 4 mg HS SHASHI Administration Topiramate 50 mg 06/24/24 21:00 04/17/24 08:37 Topiramate 25 Mg Tab PO Not Given BID SHASHI Objective - Vital Signs Vital signs: Vital Signs Temp 98.8 F 04/17/24 08:00 Pulse 72 04/17/24 08:00 Resp 16 04/17/24 08:00 BP 112/69 04/17/24 08:00 Pulse Ox 97 04/17/24 08:00 FiO2 Intake & Output 04/16/24 04/17/24 04/17/24 18:59 06:59 18:59 Intake Total 10 120 Output Total 425 200 125 Balance -425 -190 -5 Intake: IV 10 Invasive Line 2 10 Oral 120 Output: Urine 425 200 125 Other: Voiding Method Indwelling Catheter Indwelling Catheter Indwelling Catheter - Exam -GENERAL: The patient is confused, does not respond to stimuli, agitated HEENT: Pupils are round and equally reacting to light. EOMI. No scleral icterus. No conjunctival pallor. Normocephalic, atraumatic. No pharyngeal erythema. No thyromegaly. CARDIOVASCULAR: S1 and S2 present. No murmurs, rubs, or gallops. PULMONARY: Chest is clear to auscultation, no wheezing , no crackles. -ABDOMEN: Soft, nontender, nondistended, normoactive bowel sounds. No palpable organomegaly. Thibodeaux catheter in place MUSCULOSKELETAL: No joint swelling or deformity. -EXTREMITIES: No cyanosis, clubbing, or pedal edema. Wound with no evidence of infection on the left lateral leg NEUROLOGICAL: Gross neurological examination did not reveal any focal deficits. SKIN: No rashes. no petechiae. - Labs CBC & Chem 7: 04/16/24 11:42 04/16/24 11:42 Labs: Abnormal Lab Results - Last 24 Hours (Table) 04/16/24 04/16/24 04/16/24 Range/Units 11:42 11:42 11:42 RBC 3.79 L (3.80-5.40) m/uL Plt Count 47 L (150-450) k/uL VBG HCO3 22 L (24-28) mmol/L Chloride 116 H (98-107) mmol/L Carbon Dioxide 20 L (22-30) mmol/L BUN 18 H (7-17) mg/dL Total Bilirubin 1.4 H (0.2-1.3) mg/dL Delta Bilirubin 0.7 H (0.0-0.2) mg/dL AST 74 H (14-36) U/L Total Protein 5.3 L (6.3-8.2) g/dL Albumin 2.9 L (3.5-5.0) g/dL Microbiology - Last 24 Hours (Table) 04/14/24 11:30 Blood Culture Gram Stain - Preliminary Blood Blood Culture - Preliminary Coagulase Negative Staph Coagulase Negative Staph#2 Bacillus species Not Anthracis Acinetobacter radioresistens Molecular ID 04/14/24 09:15 Urine Culture - Preliminary Urine,Catheterized 04/14/24 11:15 Blood Culture Gram Stain - Preliminary Blood Blood Culture - Preliminary Coagulase Negative Staph Coagulase Negative Staph#2 Assessment and Plan Assessment: Altered mental status, could be metabolic/toxic encephalopathy associated with acute Delirium Alcohol use disorder, possible alcohol withdrawal delirium tremens Dehydration and acute kidney injury most likely prerenal Possible sepsis with high WBC, fever, UTI suspected, cellulitis of the left leg is felt less likely however cannot rule out other sources Seizure disorder on Keppra Alcoholic liver cirrhosis Left leg wound History of GERD History of GI bleed Hepatitis C history of heroin abuse Plan: Continue with ceftriaxone Continue with normal saline 75 mL/h CIWA protocol and thiamine While patient cannot take oral will put the patient on clonidine 0.2 mg patch and nitroglycerin topical Follow-up blood culture Follow-up urine culture Cardiology and neurology consult Infectious disease consult on the case Labs and medication were reviewed.. Continue same treatment. Continue with symptomatic treatment. Resume home medication. Monitor labs and vitals. DVT and GI prophylaxis. Further recommendations as per clinical course of the patient DVT prophylaxis: Subcutaneous heparin GI Prophylaxis: Pepcid PT/OT: Pending Prognosis is guarded
[2024-04-17 13:00] LABS: African American GFR (CKD) >90 (>60 ml/min/1.73 sqM); Anion Gap 8 mmol/L; Blood Urea Nitrogen 15 mg/dL (7-17); Calcium 8.7 mg/dL (8.4-10.2); Carbon Dioxide 18 mmol/L (22-30); Chloride 116 mmol/L (98-107); Glucose 92 mg/dL (74-99); Non-African American GFR(CKD) 81 (>60 ml/min/1.73 sqM); Potassium 3.6 mmol/L (3.5-5.1); Sodium 142 mmol/L (137-145)
[2024-04-17] MEDS: ACETAMINOPHEN TAB 325 MG TAB PO PRN (14:42)
--- NOTE | 2024-04-17 15:24 | P.PN ---
Subjective HISTORY OF PRESENT ILLNESS: This is a 53-year-old female with a past medical history significant for alcoholic liver disease, GERD, GI bleed, hepatitis, and heroin abuse. Patient does not follow with a chemist helper. We have been asked to see the patient in consultation for elevated troponins. Patient examined at the bedside emergency room. Patient is confused at the time of examination unable to provide any meaningful history. There is no family present. According to ER documentation, the patient was found facedown with her head in a trash can on the floor. DIAGNOSTICS: - EKG reveals sinus tachycardia with no signs of acute ischemia. - Chest xray chronic changes without evidence for acute pulmonary process. - Laboratory data: WBC 11.3. Hemoglobin 14.1. Sodium 135. Potassium 4.1. BUN 16. Creatinine 0.81. Lactic acid 2.1. Troponin 1.500. 1.620. 1.510. - Current home cardiac medications include Bumex 0.5 mg daily, midodrine 5 mg 3 times a day with meals, propranolol 60 mg at night, Aldactone 25 mg daily. - Most recent echocardiogram obtained in February 2023 revealed ejection fraction 65 to 70%, moderate to severe mitral regurgitation septal hypertrophy with turbulent flow across the left ventricular outflow track 04/16/2024 Patient examined at the bedside. Patient remains confused. She has a vehicle safety inspector present. Patient unable to answer any questions at the time of examination. Echocardiogram completed revealing ejection fraction 60 to 65%, no significant mitral regurgitation appreciated on limited imaging, trace to mild aortic regurgitation. 04/17 Patient seen and examined. Electrolog Operator chest pain or pressure. Not answering most questions appropriately. Echo showed preserved EF with some increased gradient across aortic valve however no significant valvular pathology. PHYSICAL EXAM: VITAL SIGNS: Reviewed. GENERAL: Well-developed in no acute distress. HEENT: Head is normocephalic. Pupils are equal, round. Sclerae anicteric. Mucous membranes of the mouth are moist. Neck supple. No JVD or thyromegaly LUNGS: Respirations even and unlabored. Lungs essentially clear to auscultation bilaterally. HEART: Regular rate and rhythm. S1 and S2 heard. +l 3/6 systolic murmur noted. ABDOMEN: Soft. Nondistended. Nontender. EXTREMITIES: Normal range of motion. No clubbing or cyanosis. Peripheral pulses intact. No lower extremity edema NEUROLOGIC: Confused. Lethargic. ASSESSMENT: Altered mental status Bacteremia Suspected urinary tract infection Elevated troponins likely secondary to acute myocardial injury without ischemia secondary to metabolic encephalopathy Mitral regurgitation, previously moderate to severe History of alcohol abuse Elevated lactic acid History of seizure disorder History of GERD History of hepatitis Nicotine dependence PLAN: 2D echo obtained and reviewed Infectious disease following for positive blood cultures. Continue antibiotics. Hold on any NEFTALI unless persistent bacteremia or ID requesting Further recommendations pending patient course Objective - Vital Signs Vital signs: Vital Signs Temp 98.1 F 04/17/24 11:48 Pulse 61 04/17/24 11:48 Resp 15 04/17/24 11:48 BP 142/91 04/17/24 11:48 Pulse Ox 97 04/17/24 11:48 FiO2 Intake & Output 04/16/24 04/17/24 04/17/24 18:59 06:59 18:59 Intake Total 10 120 Output Total 425 200 300 Balance -425 -190 -180 Intake: IV 10 Invasive Line 2 10 Oral 120 Output: Urine 425 200 300 Other: Voiding Method Indwelling Catheter Indwelling Catheter Indwelling Catheter - Labs CBC & Chem 7: 04/16/24 11:42 04/17/24 12:17 Labs: Abnormal Lab Results - Last 24 Hours (Table) 04/17/24 Range/Units 12:17 Chloride 116 H (98-107) mmol/L Carbon Dioxide 18 L (22-30) mmol/L Microbiology - Last 24 Hours (Table) 04/14/24 09:15 Urine Culture - Final Urine,Catheterized 04/14/24 11:15 Blood Culture Gram Stain - Final Blood Blood Culture - Final Coagulase Negative Staph Coagulase Negative Staph#2 04/14/24 11:30 Blood Culture Gram Stain - Final Blood Blood Culture - Final Coagulase Negative Staph Coagulase Negative Staph#2 Bacillus species Not Anthracis Acinetobacter radioresistens Molecular ID
--- NOTE | 2024-04-17 15:26 | P.PN ---
Subjective Progress Note Date: 04/17/24 Principal diagnosis: Reason for follow-up is Bacteremia Patient is a 53-year-old female with a past medical history significant for reflux seizure from alcoholism liver disease GI bleed bipolar depression current everyday smoker patient has been brought to the hospital for evaluation of altered mental status changes did have a low-grade fever positive UA and blood culture with gram-negative prompting this consultation. On today's evaluation that is 04/17/2024,the patient remains to be afebrile patient seen to be slightly more awake today responding to the nursing staff he was getting her hair done no agitation no vomiting diarrhea reported patient did not answer any question. Patient did have a creatinine 0.83, blood cultures with multiple pathogens, Citrobacter was sensitive pathogen Objective - Vital Signs Vital signs: Vital Signs Temp 98.1 F 04/17/24 11:48 Pulse 61 04/17/24 11:48 Resp 15 04/17/24 11:48 BP 142/91 04/17/24 11:48 Pulse Ox 97 04/17/24 11:48 FiO2 Intake & Output 04/16/24 04/17/24 04/17/24 18:59 06:59 18:59 Intake Total 10 120 Output Total 425 200 300 Balance -425 -190 -180 Intake: IV 10 Invasive Line 2 10 Oral 120 Output: Urine 425 200 300 Other: Voiding Method Indwelling Catheter Indwelling Catheter Indwelling Catheter - Exam GENERAL DESCRIPTION: Middle-aged female lying in bed in no distress RESPIRATORY SYSTEM: Unlabored breathing , decreased breath sounds at bases HEART: S1 S2 regular rate and rhythm , ABDOMEN: Soft , no tenderness EXTREMITIES: No edema feet - Labs CBC & Chem 7: 04/16/24 11:42 04/17/24 12:17 Labs: Abnormal Lab Results - Last 24 Hours (Table) 04/17/24 Range/Units 12:17 Chloride 116 H (98-107) mmol/L Carbon Dioxide 18 L (22-30) mmol/L Microbiology - Last 24 Hours (Table) 04/14/24 09:15 Urine Culture - Final Urine,Catheterized 04/14/24 11:15 Blood Culture Gram Stain - Final Blood Blood Culture - Final Coagulase Negative Staph Coagulase Negative Staph#2 04/14/24 11:30 Blood Culture Gram Stain - Final Blood Blood Culture - Final Coagulase Negative Staph Coagulase Negative Staph#2 Bacillus species Not Anthracis Acinetobacter radioresistens Molecular ID Assessment and Plan (1) Bacteremia Current Visit: Yes Status: Acute Code(s): R78.81 - BACTEREMIA SNOMED Code(s): 8873369 (2) UTI (urinary tract infection) Current Visit: Yes Status: Acute Code(s): N39.0 - URINARY TRACT INFECTION, SITE NOT SPECIFIED SNOMED Code(s): 58954057 Plan: 1patient with a positive blood culture with gram-negative bacilli more likely urinary source as the patient abdomen was soft on clinical examination patient did have a abdominal ultrasound and the gallbladder was within normal limit currently do not have any abdominal cellulitis and neck was supple on clinical lamination 2-positive blood culture with multiple pathogen including staph epi and Acetobacter with a question of possible contamination 3-blood culture has been repeated document clearance of bacteremia 4-patient to continue with Rocephin, patient was started on acyclovir per neurology however we need to do LP to confirm the diagnosis instead of empiric continuation of acyclovir discussed with the neurologist Dictation was produced using [employer] dictation software. please excuse any grammatical, word or spelling errors.
[2024-04-17 16:06] LABS: Glucose,Whole Blood 95 mg/dL (70-110)
[2024-04-17 17:40] LABS: HCT 31.4 % (34.0-46.0); HGB 11.1 gm/dL (11.4-16.0); MCH 32.2 pg (25.0-35.0); MCHC 35.2 g/dL (31.0-37.0); MCV 91.6 fL (80.0-100.0); Mean Platelet Volume 10.1; Poikilocytosis Slight; RBC 3.43 m/uL (3.80-5.40); RDW 15.9 % (11.5-15.5); WBC 3.1 k/uL (3.8-10.6)
[2024-04-17 18:54] LABS: Band Neutrophils % 2 %; Lymphocytes # (M) 0.96 k/uL (1.0-4.8); Monocytes # (M) 0.56 k/uL (0-1.0); Neutrophils % (M) 49 %; Nucleated Red Blood Cells 1 /100 WBC (0-0); Total Cells Counted 100; Toxic Vacuolation Present
[2024-04-17 18:55] LABS: Large Platelets Present; Platelet Count 64 k/uL (150-450); Polychromasia Present
[2024-04-17 20:13] LABS: Glucose,Whole Blood 92 mg/dL (70-110)
[2024-04-17 22:33] LABS: % Iron Saturation 20.77 (12.00-45.00); Iron 54 UG/DL (50-170); Rheumatoid Factor, Qnt 18 IU/mL (0-15); Total Iron Binding Capacity 260 UG/DL (228-460)
--- NOTE | 2024-04-17 23:16 | EEG ---
ELECTROENCEPHALOGRAM REPORT PREAMBLE: This is a 53-year-old female who has been unresponsive since admission. The patient had abnormal EEG yesterday. The patient has history of alcoholism. Currently, the patient is on Keppra 1000 mg b.i.d. EEG FINDINGS: This is a 21-channel digital EEG recorded with video component, utilizing 10/20 international system with referential and bipolar montages. Background consists of moderately well-developed, but poorly regulated, mixed frequencies of medium amplitude, mixed theta and delta activity in bihemispheric region. Background does not seem to be reactive to eye opening or closing. Photic stimulation and hyperventilation were not performed. Different stages of sleep were not seen. Infrequent triphasic waves were seen. No focal or generalized epileptiform activity was seen. EKG channel showed some irregular heart rhythm. IMPRESSION: This is an abnormal EEG due to background slowing of moderate to severe degree. This is suggestive of generalized cerebral dysfunction as can be seen with toxic metabolic encephalopathy or related to diffuse structural brain abnormality. Clinical correlation is recommended. When compared to the EEG from 04/16/2024, the background has improved, as well as the triphasic waves are less frequent. MMODL / IJN: [id number] /
[2024-04-18 00:08] LABS: Protein, Total 5.5 g/dL (6.2-8.2)
[2024-04-18 05:52] LABS: Glucose,Whole Blood 111 mg/dL (70-110)
[2024-04-18 08:05] LABS: Basophils % (A) 0 %; Eosinophils % (A) 0 %; HCT 32.4 % (34.0-46.0); HGB 10.8 gm/dL (11.4-16.0); Lymphocytes # (A) 0.8 k/uL (1.0-4.8); Lymphocytes % (A) 31 %; MCH 31.4 pg (25.0-35.0); MCHC 33.4 g/dL (31.0-37.0); Mean Platelet Volume 10.8; Monocytes # (A) 0.1 k/uL (0-1.0); Monocytes % (A) 5 %; Neutrophils # (A) 1.5 k/uL (1.3-7.7); Neutrophils % (A) 60 %; Poikilocytosis Slight; RBC 3.45 m/uL (3.80-5.40); RDW 15.4 % (11.5-15.5); WBC 2.5 k/uL (3.8-10.6)
[2024-04-18 08:10] LABS: Platelet Count 51 k/uL (150-450)
[2024-04-18 08:16] LABS: African American GFR (CKD) >90 (>60 ml/min/1.73 sqM); Anion Gap 5 mmol/L; Blood Urea Nitrogen 9 mg/dL (7-17); Calcium 8.6 mg/dL (8.4-10.2); Carbon Dioxide 23 mmol/L (22-30); Chloride 115 mmol/L (98-107); Glucose 101 mg/dL (74-99); Non-African American GFR(CKD) 87 (>60 ml/min/1.73 sqM); Potassium 3.5 mmol/L (3.5-5.1); Sodium 143 mmol/L (137-145)
--- NOTE | 2024-04-18 09:28 | P.CONS ---
History of Present Illness - Reason for Consult Consult date: 04/17/24 thrombocytopenia Requesting physician: Oziel E Sheet - Chief Complaint altered mental status - History of Present Illness Patient is a 53-year-old female with a signicant history of alcohol abuse, hepatitis C and hepatic cirrhosis. Consult was placed for thrombocytopenia. Patient presented to the hospital via ambulance for altered mental status. At todays visit patient is very somnolent and hard to arouse, and we received no meaningful HPI. Per review of notes, pt was found by EMS on the ground with head in a garbage can and was A&O x0 and left arm was tremoring. On arrival CT head revealed age-related atrophic and chronic small vessel ischemic change without acute intracranial process seen at this time. CT of the cervical spine showed no evidence for acute fracture or subluxation. Abdominal ultrasound showed hepatic cirrhosis without evidence of suspicious mass. Splenomegaly suggesting portal hypertension from cirrhosis. CBC showed WBC 4.4, hemoglobin 11.7, platelets 47,000, differential shows no significant abnormalities. Bilirubin was elevated admission at 2.5 with transaminitis noted. Bilirubin now 1.4, LFTs improving. Upon trending labs thrombocytopenia has been noted since 2014. Platelets have fluctuated significantly, but has been seen as low as 20,000. Blood cultures positive for multiple organisms. Patient started on ceftriaxone and acyclovir. ID following. Concern for encephalitis, neurology following with plans for LP. Patient is afebrile, hemodynamically stable. Review of Systems 10 point ROS is negative except as stated in the HPI Past Medical History Past Medical History: Eye Disorder, GERD/Reflux, GI Bleed, Liver Disease, Musculoskeletal Disorder, Neurologic Disorder, Seizure Disorder Additional Past Medical History / Comment(s): SEIZURE FROM ETOH, SHINGLES 6 YERAS AGO, MURMUR, TORN CATILAGE IN KNEES, LIVER FAILURE IN PAST, HEP C - NEVER TX (PAST HEROIN USE), BULEMIA, ANXIETY/DEPRESSION, PAST SUICIDE ATTEMPTS, "IN OCTOBER DRANK RUBBING ALCOHOL". FAMILY STATED PT TAKES SUBOXONE TO HELP HER NOT DRINK AND FOR PAIN IN LEGS/KNEES. HEP C POSITIVE. History of Any Multi-Drug Resistant Organisms: MRSA Year Discovered:: 04/20/16 MDRO Source:: [facility] Past Surgical History: Hernia Repair, Uterine Ablation Additional Past Surgical History / Comment(s): NOVOSURE ENDOMETRIAL ABLATION, "THROAT BANDING" Past Anesthesia/Blood Transfusion Reactions: No Reported Reaction Additional Past Anesthesia/Blood Transfusion Reaction / Comm: Pt received previous blood transfusion at [facility] per past medical record. Past Psychological History: Anxiety, Bipolar, Depression, Panic Disorder Additional Psychological History / Comment(s): PAST SUICIDE ATTEMPT FROM OVERDOSE, HAS BEEN SEEN AT [facility]. Smoking Status: Current every day smoker Past Alcohol Use History: Abuse, Daily Past Drug Use History: Cocaine, Heroin, IV Drug Use Additional Drug Use History / Comment(s): PATIENT LAST USED HEROIN TWO YEARS AGO. - Past Family History Father History Unknown: Yes Family Medical History: No Reported History Mother Family Medical History: Cancer Additional Family Medical History / Comment(s): COLON AND LUNG CANCER - AT AGE 50 Medications and Allergies Home Medications Medication Instructions Recorded Confirmed Type Bumetanide [BUMEX] 0.5 mg PO DAILY 07/28/22 04/14/24 History Buprenorphine/Naloxone 8Mg/2Mg 1 film SL TID 07/28/22 04/14/24 History [Suboxone 8-2Mg Film] Mirtazapine [Remeron] 45 mg PO HS 07/28/22 04/14/24 History Propranolol LA [Inderal LA] 60 mg PO HS 07/28/22 04/14/24 History busPIRone HCL 15 mg PO BID 07/28/22 04/14/24 History Levothyroxine Sodium [Synthroid] 50 mcg PO DAILY 06/25/23 04/14/24 History Rifaximin [Xifaxan] 550 mg PO BID 06/25/23 04/14/24 History Topiramate 50 mg PO BID 08/27/23 04/14/24 History Baclofen [Lioresal] 10 mg PO HS 04/14/24 04/14/24 History Lactulose [Cephulac] 10 gm PO TID 04/14/24 04/14/24 History Midodrine [ProAmatine] 5 mg PO TID-W/MEALS 04/14/24 04/14/24 History Spironolactone [Aldactone] 25 mg PO DIRECTED 04/14/24 04/14/24 History chlorproMAZINE [Thorazine] 25 mg PO HS 04/14/24 04/14/24 History hydrOXYzine HCL [Atarax] 100 mg PO Q6H PRN 04/14/24 04/14/24 History levETIRAcetam [Keppra] 500 mg PO BID 04/14/24 04/14/24 History tiZANidine [Zanaflex] 4 mg PO HS 04/14/24 04/14/24 History Allergies Allergy/AdvReac Type Severity Reaction Status Date / Time Penicillins Allergy Severe Rash/Hives Verified 04/14/24 09:10 Physical Exam Vitals: Vital Signs Temp Pulse Resp BP Pulse Ox 04/17/24 08:00 98.8 F 72 16 112/69 97 04/17/24 04:00 97.4 F L 74 16 107/62 95 04/17/24 00:00 97.3 F L 85 18 101/64 96 04/16/24 20:00 98.3 F 104 H 18 135/82 98 04/16/24 16:37 96.9 F L 100 16 127/81 98 04/16/24 13:07 91 04/16/24 11:23 97.4 F L 91 16 159/96 99 Intake and Output 04/16/24 04/17/24 04/17/24 22:59 06:59 14:59 Intake Total 10 120 Output Total 125 200 125 Balance -115 -200 -5 Intake: IV 10 Invasive Line 2 10 Oral 120 Output: Urine 125 200 125 Other: Voiding Method Indwelling Catheter Indwelling Catheter Indwelling Catheter - Constitutional General appearance: disheveled, no acute distress - Respiratory Respiratory: bilateral: diminished - Cardiovascular Rhythm: regular Heart sounds: normal: S1, S2 - Gastrointestinal General gastrointestinal: no hepatomegaly, soft, no splenomegaly - Integumentary Integumentary: no cyanotic - Neurologic somnolent - Musculoskeletal Musculoskeletal: generalized weakness Results CBC & Chem 7: 04/18/24 07:57 04/18/24 07:49 Labs: Abnormal Lab Results - Last 24 Hours (Table) 04/16/24 04/16/24 04/16/24 Range/Units 11:42 11:42 11:42 RBC 3.79 L (3.80-5.40) m/uL Plt Count 47 L (150-450) k/uL VBG HCO3 22 L (24-28) mmol/L Chloride 116 H (98-107) mmol/L Carbon Dioxide 20 L (22-30) mmol/L BUN 18 H (7-17) mg/dL Total Bilirubin 1.4 H (0.2-1.3) mg/dL Delta Bilirubin 0.7 H (0.0-0.2) mg/dL AST 74 H (14-36) U/L Total Protein 5.3 L (6.3-8.2) g/dL Albumin 2.9 L (3.5-5.0) g/dL Microbiology - Last 24 Hours (Table) 04/14/24 11:30 Blood Culture Gram Stain - Preliminary Blood Blood Culture - Preliminary Coagulase Negative Staph Coagulase Negative Staph#2 Bacillus species Not Anthracis Acinetobacter radioresistens Molecular ID 04/14/24 09:15 Urine Culture - Preliminary Urine,Catheterized 04/14/24 11:15 Blood Culture Gram Stain - Preliminary Blood Blood Culture - Preliminary Coagulase Negative Staph Coagulase Negative Staph#2 CT scan - chest: report reviewed CT Scan - head: report reviewed US - abdomen: report reviewed Assessment and Plan (1) Altered mental status Current Visit: Yes Status: Acute Priority: High Code(s): R41.82 - ALTERED MENTAL STATUS, UNSPECIFIED SNOMED Code(s): 046015614 (2) Bacteremia Current Visit: Yes Status: Acute Priority: High Code(s): R78.81 - BACTEREMIA SNOMED Code(s): 4651371 (3) Acute encephalopathy Current Visit: Yes Status: Acute Priority: High Code(s): G93.40 - ENCEPHALOPATHY, UNSPECIFIED SNOMED Code(s): 97406306 (4) Thrombocytopenia Current Visit: Yes Status: Acute Priority: Medium Code(s): D69.6 - THROM BOCYTOPENIA, UNSPECIFIED SNOMED Code(s): 905901133 Plan: AMS, bacteremia, metabolic encephalopathy: Presented to the hospital for altered mental status. Patient was found by EMS on the ground with head in a garbage can and was A&O x0 and left arm was tremoring. -On arrival CT head revealed age-related atrophic and chronic small vessel ischemic change without acute intracranial process seen at this time. -Blood cultures positive for multiple organisms. Patient started on ceftriaxone and acyclovir. ID following -EEG was significantly abnormal due to presence of disorganized background with slowing, suggestive of moderate to severe encephalopathy. Keppra 1000 mg twice a day started -Concern for encephalitis, neurology following with plans for LP Thrombocytpenia: -Significant history of alcohol abuse, hepatitis C and hepatic cirrhosis. -Abdominal ultrasound revealed hepatic cirrhosis without evidence of suspicious mass. Splenomegaly suggesting portal hypertension from cirrhosis -CBC showed WBC 4.4, hemoglobin 11.7, platelets 47,000, differential shows no significant abnormalities. Bilirubin was elevated admission at 2.5 with transaminitis noted. Bilirubin now 1.4, LFTs improving. -Upon trending labs thrombocytopenia has been noted since 2013. Platelets have fluctuated significantly, but has been seen as low as 20,000. -Thrombocytopenia r/t chronic liver disease and splenic sequestration, supe rimposed by acute infection -Will order cytopenia workup -Platelets today 47,000. Typically, recommendations are for platelets 50,000 or greater for LP, but some guidelines have also found to be safe > 40,000. Would recommend to give 1 dose of platelets at the time of the procedure Recommendations discussed with admitting team Dr. pelaezests: I have seen and examined patient, performed H&P, developed impression and plan of care. Discussed with dictator. Agree with documentation, dictated as a scribe.
[2024-04-18] MEDS: NICOTINE 14MG/24HR PATCH TRANSDERM SCH (10:07)
[2024-04-18 11:43] LABS: Glucose,Whole Blood 107 mg/dL (70-110)
[2024-04-18 11:58] LABS: Free Kappa Lt Chain Qnt, Serum 3.87 mg/dL (0.33-1.94); Free Lambda Lt Chain Qnt, Seru 4.46 mg/dL (0.57-2.63)
--- NOTE | 2024-04-18 12:18 | P.PN ---
Subjective Progress Note Date: 04/17/24 04/17/2024: Patient was seen for a follow-up. Sitarden was present, who mentions that patient since morning has been "in and out of sleep". She is not combative. She is saying a few words but usually repeats. Occasionally she gets up. Sometimes she thrashes in the bed. 04/16/2024: Patient was seen for a follow-up. Patient continues to be very encephalopathic, somnolent. Patient has received numerous doses of Ativan, and also Haldol 5 mg for EEG. Therefore patient is very groggy. Examination limited. 04/15/2024: Patient was seen for a follow-up. Patient continues to be severely encephalopathic, very restless, moving her extremities randomly. Patient lifts her legs up and throws it down, sometimes hitting the side rail. Recommend seizure precautions and seizure pads. Patient could not have EEG performed today because of severe altered mental status. Sitter was present, who states patient is "out of it", mostly sleeping, not talking. No seizures reported. Objective - Vital Signs Vital signs: Vital Signs Temp 97.4 F L 04/17/24 15:47 Pulse 72 04/17/24 15:47 Resp 16 04/17/24 15:47 BP 144/95 04/17/24 15:47 Pulse Ox 100 04/17/24 15:47 FiO2 Intake & Output 04/16/24 04/17/24 04/17/24 18:59 06:59 18:59 Intake Total 10 120 Output Total 425 200 300 Balance -425 -190 -180 Intake: IV 10 Invasive Line 2 10 Oral 120 Output: Urine 425 200 300 Other: Voiding Method Indwelling Catheter Indwelling Catheter Indwelling Catheter - Exam Patient's mentation has much improved. Patient knows her date of . She knows her address [address] [place]. However when I asked what city and state she is in, she could not tell the city but she knows it is [place]. On asking the month, patient keeps on repeating "Sunday". Her speech is slightly slurred but no aphasia. Mentation much improved. Patient moving all 4 extremities. - Labs CBC & Chem 7: 04/18/24 07:57 04/18/24 07:49 Labs: Abnormal Lab Results - Last 24 Hours (Table) 04/17/24 Range/Units 12:17 Chloride 116 H (98-107) mmol/L Carbon Dioxide 18 L (22-30) mmol/L Microbiology - Last 24 Hours (Table) 04/16/24 11:42 Blood Culture - Preliminary Blood 04/14/24 09:15 Urine Culture - Final Urine,Catheterized 04/14/24 11:15 Blood Culture Gram Stain - Final Blood Blood Culture - Final Coagulase Negative Staph Coagulase Negative Staph#2 04/14/24 11:30 Blood Culture Gram Stain - Final Blood Blood Culture - Final Coagulase Negative Staph Coagulase Negative Staph#2 Bacillus species Not Anthracis Acinetobacter radioresistens Molecular ID Assessment and Plan Assessment: * Altered mental status, likely due to metabolic encephalopathy. Reasons multifactorial as mentioned below. Rule out encephalitis. * History of alcoholism, probable DTs, from alcohol withdrawal. History of polysubstance abuse. * Bacteremia, unclear cause, ID on board * Elevated cardiac enzymes, cardiology on board * Elevated liver enzymes * Lactic acidosis * Mild renal insufficiency * Rhabdomyolysis * Possible UTI * Thrombocytopenia Plan: * Continue Keppra 500 mg IV twice daily. Patient also on Topamax 50 mg twice a day, but not receiving because of mental status. * Repeat EEG today 04/17/2024 was abnormal due to background slowing of moderate to severe degree. This is suggestive of generalized cerebral dysfunction. No epileptiform activity was seen. When compared to the EEG from 04/16/2024, the background has improved as well as triphasic waves are less frequent. * Initial EEG 04/16/2024 was significantly abnormal due to presence of disorganized background with slowing, suggestive of moderate to severe encephalopathy. Some intermittent sleep was also seen during the study. There were presence of frequent triphasic waves, which at times become more rhythmic at 1 Hz which may suggest underlying cortical irritability and may suggest tendency for seizures. No electrolyte and seizure however was recorded. Suggest prolonged EEG, if clinically indicated. * Increase Keppra to 1000 mg twice a day (increased on 04/17/2024). * Lumbar puncture was considered today. However there is no CBC with updated platelet count. Consent is not available. We will defer lumbar puncture to tomorrow. Patient is clinically improving. * Patient has positive blood cultures. Infectious disease on board. Patient currently on ceftriaxone 2 g IV PB daily. * We will empirically start acyclovir 10 mg/kg IV every 8 hours. * Continue lactulose. Ammonia level is normal 10. * Patient has elevated cardiac enzymes, cardiology and board. * Continue CIWA protocol. * Other medical management as per IM. * Continue seizure precautions and seizure pads to prevent injuries. Sitter is present.
[2024-04-18] MEDS: LIDOCAINE 1% INJ 10MG/ML (20 ML MDV) SQ ONE (15:57)
--- NOTE | 2024-04-18 16:08 | P.PN ---
Subjective Progress Note Date: 04/18/24 Principal diagnosis: Reason for follow-up is Bacteremia Patient is a 53-year-old female with a past medical history significant for reflux seizure from alcoholism liver disease GI bleed bipolar depression current everyday smoker patient has been brought to the hospital for evaluation of altered mental status changes did have a low-grade fever positive UA and blood culture with gram-negative prompting this consultation. On today's evaluation that is 04/18/2024,the patient remains to be afebrile, patient is on room air not requiring supplemental oxygen patient apparently has been given medication to calm her down currently sedated and did not provide any history no vomiting or diarrhea reported by the sitter at the bedside. Patient white count is 2.5 creatinine 0.79 Objective - Vital Signs Vital signs: Vital Signs Temp 98 F 04/18/24 11:27 Pulse 71 04/18/24 11:27 Resp 16 04/18/24 11:27 BP 151/88 04/18/24 11:27 Pulse Ox 98 04/18/24 11:27 FiO2 Intake & Output 04/17/24 04/18/24 04/18/24 18:59 06:59 18:59 Intake Total 360 900 520 Output Total 1075 1210 2275 Balance -095 -907 -7518 Intake: Intake, IV Titration 900 Amount Dextrose 5%-0.9% NaCl 1, 900 000 ml @ 75 mls/hr IV . [id number] [facility] Rx#:[id number] Oral 360 520 Output: Urine 1075 1210 2275 Straight 710 Other: Voiding Method Indwelling Catheter Indwelling Catheter Indwelling Catheter - Exam GENERAL DESCRIPTION: Middle-aged female lying in bed in no distress RESPIRATORY SYSTEM: Unlabored breathing , decreased breath sounds at bases HEART: S1 S2 regular rate and rhythm , ABDOMEN: Soft , no tenderness EXTREMITIES: No edema feet - Labs CBC & Chem 7: 04/18/24 07:57 04/18/24 07:49 Labs: Abnormal Lab Results - Last 24 Hours (Table) 04/16/24 04/17/24 04/17/24 Range/Units 11:42 12:17 17:08 WBC 3.1 L (3.8-10.6) k/uL RBC 3.43 L (3.80-5.40) m/uL Hgb 11.1 L (11.4-16.0) gm/dL Hct 31.4 L (34.0-46.0) % RDW 15.9 H (11.5-15.5) % Plt Count 64 L (150-450) k/uL Lymphocytes # (1.0-4.8) k/uL Lymphocytes # (Manual) 0.96 L (1.0-4.8) k/uL Nucleated RBCs 1 H (0-0) /100 WBC Chloride (98-107) mmol/L Glucose (74-99) mg/dL POC Glucose (mg/dL) (70-110) mg/dL Transferrin 186.0 L (204.0-354.0) mg/dL Total Protein (PEP) 5.5 L (6.2-8.2) g/dL IgM 362.0 H (40.0-280.0) mg/dL Rheumatoid Factor 18 H (0-15) IU/mL Free Goff LC, Quant 3.87 H (0.33-1.94) mg/dL Free Lambda LC, Quant 4.46 H (0.57-2.63) mg/dL 04/18/24 04/18/24 04/18/24 Range/Units 05:48 07:49 07:57 WBC 2.5 L (3.8-10.6) k/uL RBC 3.45 L (3.80-5.40) m/uL Hgb 10.8 L (11.4-16.0) gm/dL Hct 32.4 L (34.0-46.0) % RDW (11.5-15.5) % Plt Count 51 L (150-450) k/uL Lymphocytes # 0.8 L (1.0-4.8) k/uL Lymphocytes # (Manual) (1.0-4.8) k/uL Nucleated RBCs (0-0) /100 WBC Chloride 115 H (98-107) mmol/L Glucose 101 H (74-99) mg/dL POC Glucose (mg/dL) 111 H (70-110) mg/dL Transferrin (204.0-354.0) mg/dL Total Protein (PEP) (6.2-8.2) g/dL IgM (40.0-280.0) mg/dL Rheumatoid Factor (0-15) IU/mL Free Goff LC, Quant (0.33-1.94) mg/dL Free Lambda LC, Quant (0.57-2.63) mg/dL Microbiology - Last 24 Hours (Table) 04/16/24 11:42 Blood Culture - Preliminary Blood 04/14/24 09:15 Urine Culture - Final Urine,Catheterized 04/14/24 11:15 Blood Culture Gram Stain - Final Blood Blood Culture - Final Coagulase Negative Staph Coagulase Negative Staph#2 04/14/24 11:30 Blood Culture Gram Stain - Final Blood Blood Culture - Final Coagulase Negative Staph Coagulase Negative Staph#2 Bacillus species Not Anthracis Acinetobacter radioresistens Molecular ID Assessment and Plan (1) Bacteremia Current Visit: Yes Status: Acute Priority: High Code(s): R78.81 - BACTEREMIA SNOMED Code(s): 0313551 (2) UTI (urinary tract infection) Current Visit: Yes Status: Acute Priority: High Code(s): N39.0 - URINARY TRACT INFECTION, SITE NOT SPECIFIED SNOMED Code(s): 58798487 Plan: 1patient with a positive blood culture with gram-negative bacilli more likely urinary source as the patient abdomen was soft on clinical examination patient did have a abdominal ultrasound and the gallbladder was within normal limit currently do not have any abdominal cellulitis and neck was supple on clinical lamination 2-positive blood culture with multiple pathogen including staph epi and Acetobacter with a question of possible contamination 3-blood culture has been repeated and so far negative 4-patient to continue with Rocephin neurology is following the patient closely for her mentation and currently waiting for LP Dictation was produced using [employer] dictation software. please excuse any grammatical, word or spelling errors. Time with Patient: Less than 30
[2024-04-18 16:44] LABS: Glucose,Whole Blood 68 mg/dL (70-110)
[2024-04-18 17:03] LABS: Glucose,Whole Blood 95 mg/dL (70-110)
--- NOTE | 2024-04-18 17:32 | P.PN ---
Subjective Patient is a 53 years old female with past medical history of alcoholic liver cirrhosis, depression history of suicidal ideation, history of seizure disorder, GERD, GI bleed, hepatitis C, history of heroin abuse. Patient was brought from home for altered mental status, patient was found by EMS on her face down on the trash, with strong odor and unkempt. Patient currently is very confused does not follow commands and cannot provide information She is lying in bed looks agitated and moving her extremity continuously especially the lower extremity, does not looks like a seizure. Also we checked her meningeal signs and looks absent Patient cannot take her oral medication and she was found hypertensive and tachycardic in the emergency room, propranolol on hold because of patient cannot take oral medication. IV Lopressor, clonidine patch and nitroglycerin patches provided also to help her with the blood pressure and heart rate. She is mildly tachypneic, she has low-grade temperature 99.9. WBC is slightly elevated at 13,000 hemoglobin 17, sample looks hemoconcentrated and expected to go down with fluid. Baseline WBC is 5-8000, and basal hemoglobin 11-15 Creatinine is mildly elevated 1.3. Lactic acid was significantly elevated 6.9 came down with IV fluid 2.5 Creatinine 1.3 with baseline 0.9-1.0, EKG showing sinus tachycardia at [address]-T changes Chest x-ray showing chronic changes CT of the facial with no facial bone fracture CT of the head and neck is negative for acute process Ammonia level was 10 which is low Troponin is elevated 1.5-1.6 and looks steady. ABG showed normal pH 7.35 and pCO2 41 Serum alcohol and urine drug screen are requested and they are elevated Patient was started on ceftriaxone, CIWA protocol and thiamine Also started on her home dose of IV Keppra. Also patient has wound on her left leg about 2 to 3 inches in diameter with no active bleeding 04/15/2024 Patient still confused, she still agitated moving her legs bilaterally. She is nonverbal, does not open eyes spontaneously or to verbal or tactile stimuli However her abdomen looks soft with no evidence of tenderness or guarding, no right upper quadrant tenderness. No suprapubic or flank tenderness Patient saturating well on 2 L oxygen via nasal cannula Sitter at bedside Thibodeaux catheter in place Vitals are stable, blood pressure is slightly elevated. No more fever since admission. WBC trending down to 11.3, hemoglobin improved 14.1, creatinine back to reference range at 0.8. Lactic acid improved 92.0 which is the reference. Liver enzymes still mildly elevated and abdominal ultrasound reviewed by myself showing cirrhosis and splenomegaly with evidence of portal hypertension Bilirubin and liver enzymes mildly elevated. Patient remains on ceftriaxone, urine and blood cultures are pending. Patient with high CIWA score ranging between 12, 13 and 7. Neurologist evaluated the patient and EEG pending 04/16/2024 Patient remains confused, does not open eyes to verbal or tactile stimuli. She is less agitated than since admission however she can move both extremities symmetrically. There is no neck stiffness on admission or today. She has systolic murmur, I discussed the case with cardiology team will going to order echocardiogram for now however suspicion for SBE is low for now. She has a positive blood culture but looks like contamination. Repeat blood culture is requested Urine culture still pending Patient remains on ceftriaxone and gentle hydration. Blood pressure controlled Urine drug screen is negative on admission as well as serum alcohol. Abdominal ultrasound showing cirrhosis with splenomegaly. Ammonia level was low we will going to recheck ammonia level again EEG pending for possible seizure but there is no seizure-like activity at bedside We are going to discuss the case further with ID and neurology team for plan of care 04/17/2024 Patient mentation remains severely impaired, per staff she woke up for short time yesterday around 10 PM and she was oriented x 1 but overnight and this morning she is confused like before. She is not responding to verbal or tactile stimuli. No abnormal movements. No seizure-like activities. She remains on broad-spectrum antibiotic I discussed the case with hematology team they recommend to do lumbar puncture together with platelet transfusion Also patient Keppra dose increased per neurologist Was still pending family to call back. 04/18/2024 Patient today is more awake than last few days, she is up in bed drowsy groggy but she could tell me her name. She could tell me with whom she lives her [id number] Maggie which is something could not answer the last few days, however she still confused regarding place and time. She does not looks have full insight into her situation. But she follows command. There is no obvious asymmetry in movement of upper extremities, no overt abnormal movements. Sitter remains at bedside Creatinine normal 0.7 She remains on ceftriaxone and acyclovir She is on normal saline 75 mL/h Also she is on Keppra 1000 twice daily Active Medications Generic Name Dose Route Start Last Admin Trade Name Freq PRN Reason Stop Dose Admin Acetaminophen 325 mg 04/14/24 16:19 04/16/24 18:19 Acetaminophen Suppository 650 Mg Supp RECTAL 325 mg Q6HR PRN Administration Fever and/ or Pain Acetaminophen 650 mg 04/17/24 14:36 04/17/24 14:42 Acetaminophen Tab 325 Mg Tab PO 650 mg Q6HR PRN Administration Fever and/ or Pain Baclofen 10 mg 04/14/24 21:00 04/17/24 20:37 Baclofen 10 Mg Tab PO 10 mg HS SHASHI Administration Bumetanide 0.5 mg 04/15/24 09:00 04/18/24 08:14 Bumetanide 0.5 Mg Tablet PO 0.5 mg DAILY SHASHI Administration Buspirone HCl 15 mg 04/14/24 21:00 04/18/24 08:13 Buspirone Hcl 5 Mg Tab PO 15 mg BID SHASHI Administration Chlorpromazine HCl 25 mg 04/14/24 21:00 04/17/24 20:36 Chlorpromazine 25 Mg Tab PO 25 mg HS SHASHI Administration Clonidine HCl 1 patch 04/14/24 18:00 04/14/24 18:48 Clonidine 0.2 Mg/24hr Patch TRANSDERM 1 patch Q7D SHASHI Administration Hydroxyzine HCl 100 mg 04/14/24 16:13 Hydroxyzine Hcl 25 Mg Tab PO Q6H PRN Anxiety Ceftriaxone Sodium 2 gm/ 50 mls @ 100 mls/hr 04/15/24 09:00 04/18/24 08:14 Sodium Chloride IVPB 100 mls/hr DAILY SHASHI Administration Protocol Acyclovir Sodium 650 mg/ 113 mls @ 100 mls/hr 04/16/24 14:00 04/18/24 13:17 Sodium Chloride IVPB 100 mls/hr Q8H SHASHI Administration Dextrose/Sodium Chloride 1,000 mls @ 75 mls/hr 04/17/24 06:30 04/18/24 15:22 Dextrose 5%-Ns Iv Soln IV 75 mls/hr .[id number] SHASHI Administration Labetalol HCl 10 mg 04/14/24 19:23 04/15/24 11:59 Labetalol 5 Mg/Ml Vial Mdv IVP 10 mg Q4H PRN Administration Blood Pressure - High Lactulose 10 gm 04/14/24 22:00 04/18/24 14:58 Lactulose 20 Gm/30 Ml Cup PO Not Given TID SHASHI Levetiracetam 1,000 mg 04/17/24 09:00 04/18/24 08:14 Levetiracetam Iv 500 Mg/5 Ml Vial IVP 1,000 mg Q12HR SHASHI Administration Levothyroxine Sodium 50 mcg 04/15/24 06:30 04/18/24 06:02 Levothyroxine 50 Mcg Tab PO Not Given DAILY@0630 SHASHI Lorazepam 1 mg 04/14/24 10:54 04/18/24 12:38 Lorazepam 2 Mg/Ml Inj IV 1 mg Q1HR PRN Administration CIWA 10 to 15 Lorazepam 1 mg 04/14/24 10:54 04/15/24 12:00 Lorazepam 2 Mg/Ml Inj IV 1 mg Q2HR PRN Administration CIWA 8 or 9 Lorazepam 2 mg 04/14/24 10:54 Lorazepam 2 Mg/Ml Inj IV Q6HR PRN Seizures Midodrine 5 mg 04/14/24 17:30 04/18/24 15:22 Midodrine 5 Mg Tab PO Not Given TID-W/MEALS [facility] Mirtazapine 45 mg 04/14/24 21:00 04/17/24 20:37 Mirtazapine 45 Mg Tablet PO 45 mg HS [facility] Administration Naloxone HCl 0.2 mg 04/14/24 10:57 Naloxone 0.4 Mg/Ml 1 Ml Vial IV Q2M PRN Opioid Reversal Nicotine 1 patch 04/18/24 10:15 04/18/24 10:07 Nicotine 14mg/24hr Patch TRANSDERM 1 patch DAILY [facility] Administration Nitroglycerin 0.5 inch 04/15/24 00:00 04/18/24 17:00 Nitroglycerin Oint 1 Inch/Gm Packet TOPICAL 0.5 inch Q6HR [facility] Administration Non-Formulary Medication 1 film 04/14/24 22:00 04/18/24 14:58 Buprenorphine/Naloxone 8mg/2mg SUBLINGUAL Not Given TID SHASHI Ondansetron HCl 4 mg 04/14/24 10:57 Ondansetron 4 Mg/2 Ml Vial IVP Q8HR PRN Nausea And Vomiting Pantoprazole Sodium 40 mg 04/15/24 09:00 04/18/24 08:14 Pantoprazole 40 Mg/10 Ml Vial IV 40 mg DAILY SHASHI Administration Propranolol HCl 60 mg 04/14/24 21:00 04/17/24 20:36 Propranolol La 60 Mg Cap.Sa.24h PO 60 mg HS SHASHI Administration Rifaximin 550 mg 04/14/24 21:00 04/18/24 08:02 Rifaximin 550 Mg Tablet PO 05/14/24 21:01 Not Given BID [facility] Protocol Spironolactone 25 mg 04/14/24 21:00 04/18/24 08:13 Spironolactone 25 Mg Tab PO 25 mg BID SHASHI Administration Thiamine HCl 100 mg 04/15/24 09:00 04/18/24 08:14 Thiamine 100 Mg Tab PO 100 mg DAILY SHASHI Administration Tizanidine HCl 4 mg 04/14/24 21:00 04/17/24 20:36 Tizanidine 4 Mg Tab PO 4 mg HS SHASHI Administration Topiramate 50 mg 04/14/24 21:00 04/18/24 08:13 Topiramate 25 Mg Tab PO 50 mg BID SHASHI Administration Objective - Vital Signs Vital signs: Vital Signs Temp 98 F 04/18/24 11:27 Pulse 71 04/18/24 11:27 Resp 16 04/18/24 11:27 BP 151/88 04/18/24 11:27 Pulse Ox 98 04/18/24 11:27 FiO2 Intake & Output 04/17/24 04/18/24 04/18/24 18:59 06:59 18:59 Intake Total 360 900 520 Output Total 1075 1210 2275 Balance -262 -250 -1508 Intake: Intake, IV Titration 900 Amount Dextrose 5%-0.9% NaCl 1, 900 000 ml @ 75 mls/hr IV . [id number] [facility] Rx#:[id number] Oral 360 520 Output: Urine 1075 1210 2275 Straight 710 Other: Voiding Method Indwelling Catheter Indwelling Catheter Indwelling Catheter - Exam -GENERAL: The patient is confused, does not respond to stimuli, agitated HEENT: Pupils are round and equally reacting to light. EOMI. No scleral icterus. No conjunctival pallor. Normocephalic, atraumatic. No pharyngeal erythema. No thyromegaly. CARDIOVASCULAR: S1 and S2 present. No murmurs, rubs, or gallops. PULMONARY: Chest is clear to auscultation, no wheezing , no crackles. -ABDOMEN: Soft, nontender, nondistended, normoactive bowel sounds. No palpable organomegaly. Thibodeaux catheter in place MUSCULOSKELETAL: No joint swelling or deformity. -EXTREMITIES: No cyanosis, clubbing, or pedal edema. Wound with no evidence of infection on the left lateral leg NEUROLOGICAL: Gross neurological examination did not reveal any focal deficits. SKIN: No rashes. no petechiae. - Labs CBC & Chem 7: 04/18/24 07:57 04/18/24 07:49 Labs: Abnormal Lab Results - Last 24 Hours (Table) 04/16/24 04/17/24 04/17/24 Range/Units 11:42 12:17 17:08 WBC 3.1 L (3.8-10.6) k/uL RBC 3.43 L (3.80-5.40) m/uL Hgb 11.1 L (11.4-16.0) gm/dL Hct 31.4 L (34.0-46.0) % RDW 15.9 H (11.5-15.5) % Plt Count 64 L (150-450) k/uL Lymphocytes # (1.0-4.8) k/uL Lymphocytes # (Manual) 0.96 L (1.0-4.8) k/uL Nucleated RBCs 1 H (0-0) /100 WBC Chloride 116 H (98-107) mmol/L Carbon Dioxide 18 L (22-30) mmol/L Glucose (74-99) mg/dL POC Glucose (mg/dL) (70-110) mg/dL Transferrin 186.0 L (204.0-354.0) mg/dL Total Protein (PEP) 5.5 L (6.2-8.2) g/dL IgM 362.0 H (40.0-280.0) mg/dL Rheumatoid Factor 18 H (0-15) IU/mL Free [place] LC, Quant 3.87 H (0.33-1.94) mg/dL Free Lambda LC, Quant 4.46 H (0.57-2.63) mg/dL 04/18/24 04/18/24 04/18/24 Range/Units 05:48 07:49 07:57 WBC 2.5 L (3.8-10.6) k/uL RBC 3.45 L (3.80-5.40) m/uL Hgb 10.8 L (11.4-16.0) gm/dL Hct 32.4 L (34.0-46.0) % RDW (11.5-15.5) % Plt Count 51 L (150-450) k/uL Lymphocytes # 0.8 L (1.0-4.8) k/uL Lymphocytes # (Manual) (1.0-4.8) k/uL Nucleated RBCs (0-0) /100 WBC Chloride 115 H (98-107) mmol/L Carbon Dioxide (22-30) mmol/L Glucose 101 H (74-99) mg/dL POC Glucose (mg/dL) 111 H (70-110) mg/dL Transferrin (204.0-354.0) mg/dL Total Protein (PEP) (6.2-8.2) g/dL IgM (40.0-280.0) mg/dL Rheumatoid Factor (0-15) IU/mL Free [place] LC, Quant (0.33-1.94) mg/dL Free Lambda LC, Quant (0.57-2.63) mg/dL Microbiology - Last 24 Hours (Table) 04/16/24 11:42 Blood Culture - Preliminary Blood 04/14/24 09:15 Urine Culture - Final Urine,Catheterized 04/14/24 11:15 Blood Culture Gram Stain - Final Blood Blood Culture - Final Coagulase Negative Staph Coagulase Negative Staph#2 04/14/24 11:30 Blood Culture Gram Stain - Final Blood Blood Culture - Final Coagulase Negative Staph Coagulase Negative Staph#2 Bacillus species Not Anthracis Acinetobacter radioresistens Molecular ID Assessment and Plan Assessment: Altered mental status, could be metabolic/toxic encephalopathy associated with acute Delirium Alcohol use disorder, possible alcohol withdrawal delirium tremens Dehydration and acute kidney injury most likely prerenal Possible sepsis with high WBC, fever, UTI suspected, cellulitis of the left leg is felt less likely however cannot rule out other sources Seizure disorder on Keppra Alcoholic liver cirrhosis Left leg wound History of GERD History of GI bleed Hepatitis C history of heroin abuse Plan: Continue with ceftriaxone Continue with normal saline 75 mL/h CIWA protocol and thiamine While patient cannot take oral will put the patient on clonidine 0.2 mg patch and nitroglycerin topical Follow-up blood culture Follow-up urine culture Cardiology and neurology consult Infectious disease consult on the case Labs and medication were reviewed.. Continue same treatment. Continue with symptomatic treatment. Resume home medication. Monitor labs and vitals. DVT and GI prophylaxis. Further recommendations as per clinical course of the patient DVT prophylaxis: Subcutaneous heparin GI Prophylaxis: Pepcid PT/OT: Pending Prognosis is guarded
[2024-04-18 17:48] LABS: Appearance,CSF Clear
[2024-04-18 17:50] LABS: CSF Tube Number 4
[2024-04-18 18:06] LABS: Glucose,CSF 62 mg/dL (40-70); Total Protein,CSF 63 mg/dL (12-60)
[2024-04-18 18:22] LABS: Nucleated Cells, CSF 1 u/L (0-5); Red Blood Cell,CSF 1 u/L (0-10)
[2024-04-18 20:29] LABS: Glucose,Whole Blood 100 mg/dL (70-110)
[2024-04-18 21:32] LABS: Albumin 3.11 g/dL (3.80-4.90); Gamma Globulin 0.92 g/dL (0.70-1.50)
--- NOTE | 2024-04-18 22:02 | P.PN ---
Subjective HISTORY OF PRESENT ILLNESS: This is a 53-year-old female with a past medical history significant for alcoholic liver disease, GERD, GI bleed, hepatitis, and heroin abuse. Patient does not follow with a board certified music therapist. We have been asked to see the patient in consultation for elevated troponins. Patient examined at the bedside emergency room. Patient is confused at the time of examination unable to provide any meaningful history. There is no family present. According to ER documentation, the patient was found facedown with her head in a trash can on the floor. DIAGNOSTICS: - EKG reveals sinus tachycardia with no signs of acute ischemia. - Chest xray chronic changes without evidence for acute pulmonary process. - Laboratory data: WBC 11.3. Hemoglobin 14.1. Sodium 135. Potassium 4.1. BUN 16. Creatinine 0.81. Lactic acid 2.1. Troponin 1.500. 1.620. 1.510. - Current home cardiac medications include Bumex 0.5 mg daily, midodrine 5 mg 3 times a day with meals, propranolol 60 mg at night, Aldactone 25 mg daily. - Most recent echocardiogram obtained in February 2023 revealed ejection fraction 65 to 70%, moderate to severe mitral regurgitation septal hypertrophy with turbulent flow across the left ventricular outflow track 04/16/2024 Patient examined at the bedside. Patient remains confused. She has a public safety telecommunicator present. Patient unable to answer any questions at the time of examination. Echocardiogram completed revealing ejection fraction 60 to 65%, no significant mitral regurgitation appreciated on limited imaging, trace to mild aortic regurgitation. 04/17 Patient seen and examined. Cooker Mechanic chest pain or pressure. Not answering most questions appropriately. Echo showed preserved EF with some increased gradient across aortic valve however no significant valvular pathology. 04/18 Patient seen and examined. Patient more alert today. Denies any chest pain or pressure. No significant shortness breath. She states she has had a murmur her entire life. Repeat blood cultures negative to date. Consideration of UTI and additional contaminant. PHYSICAL EXAM: VITAL SIGNS: Reviewed. GENERAL: Well-developed in no acute distress. HEENT: Head is normocephalic. Pupils are equal, round. Sclerae anicteric. Mucous membranes of the mouth are moist. Neck supple. No JVD or thyromegaly LUNGS: Respirations even and unlabored. Lungs essentially clear to auscultation bilaterally. HEART: Regular rate and rhythm. S1 and S2 heard. +l 3/6 systolic murmur noted. ABDOMEN: Soft. Nondistended. Nontender. EXTREMITIES: Normal range of motion. No clubbing or cyanosis. Peripheral pulses intact. No lower extremity edema NEUROLOGIC: Confused. Lethargic. ASSESSMENT: Altered mental status Bacteremia Suspected urinary tract infection Elevated troponins likely secondary to acute myocardial injury without ischemia secondary to metabolic encephalopathy Mitral regurgitation, previously moderate to severe History of alcohol abuse Elevated lactic acid History of seizure disorder History of GERD History of hepatitis Nicotine dependence PLAN: 2D echo obtained and reviewed Infectious disease following for positive blood cultures. Continue antibiotics. No current indication for NEFTALI. If blood cultures continue to remain positive we will proceed with NEFTALI if desired by infectious disease. Monitor her valvular disease as outpatient. No further recommendations from cardiology standpoint. Please call with any questions. Objective - Vital Signs Vital signs: Vital Signs Temp 98.7 F 04/18/24 19:52 Pulse 79 04/18/24 19:52 Resp 16 04/18/24 19:52 BP 142/93 04/18/24 19:52 Pulse Ox 99 04/18/24 19:52 FiO2 Intake & Output 04/18/24 04/18/24 04/19/24 06:59 18:59 06:59 Intake Total 900 1846 Output Total 1210 4000 250 Balance -310 -2154 -250 Weight 63.503 kg Intake: Intake, IV Titration 900 Amount Dextrose 5%-0.9% NaCl 1, 900 000 ml @ 75 mls/hr IV . [id number] SHASHI Rx#:[id number] Oral 1500 Blood Product 346 Platelet Pheresis Pas 346 Psoralen Unit [id number] Output: Urine 1210 4000 250 Straight 710 Other: Voiding Method Indwelling Catheter Indwelling Catheter Indwelling Catheter - Labs CBC & Chem 7: 04/18/24 07:57 04/18/24 07:49 Labs: Abnormal Lab Results - Last 24 Hours (Table) 04/16/24 04/17/24 04/18/24 Range/Units 11:42 12:17 05:48 WBC (3.8-10.6) k/uL RBC (3.80-5.40) m/uL Hgb (11.4-16.0) gm/dL Hct (34.0-46.0) % Plt Count (150-450) k/uL Lymphocytes # (1.0-4.8) k/uL Chloride (98-107) mmol/L Glucose (74-99) mg/dL POC Glucose (mg/dL) 111 H (70-110) mg/dL Transferrin 186.0 L (204.0-354.0) mg/dL Total Protein (PEP) 5.5 L (6.2-8.2) g/dL Albumin (PEP) 3.11 L (3.80-4.90) g/dL [id number] 0.53 L (0.60-1.00) g/dL CSF Total Protein (12-60) mg/dL IgM 362.0 H (40.0-280.0) mg/dL Rheumatoid Factor 18 H (0-15) IU/mL Free [place] LC, Quant 3.87 H (0.33-1.94) mg/dL Free Lambda LC, Quant 4.46 H (0.57-2.63) mg/dL 04/18/24 04/18/24 04/18/24 Range/Units 07:49 07:57 16:00 WBC 2.5 L (3.8-10.6) k/uL RBC 3.45 L (3.80-5.40) m/uL Hgb 10.8 L (11.4-16.0) gm/dL Hct 32.4 L (34.0-46.0) % Plt Count 51 L (150-450) k/uL Lymphocytes # 0.8 L (1.0-4.8) k/uL Chloride 115 H (98-107) mmol/L Glucose 101 H (74-99) mg/dL POC Glucose (mg/dL) (70-110) mg/dL Transferrin (204.0-354.0) mg/dL Total Protein (PEP) (6.2-8.2) g/dL Albumin (PEP) (3.80-4.90) g/dL [id number]-[id number] (0.60-1.00) g/dL CSF Total Protein 63 H (12-60) mg/dL IgM (40.0-280.0) mg/dL Rheumatoid Factor (0-15) IU/mL Free [place] LC, Quant (0.33-1.94) mg/dL Free Lambda LC, Quant (0.57-2.63) mg/dL 04/18/24 Range/Units 16:43 WBC (3.8-10.6) k/uL RBC (3.80-5.40) m/uL Hgb (11.4-16.0) gm/dL Hct (34.0-46.0) % Plt Count (150-450) k/uL Lymphocytes # (1.0-4.8) k/uL Chloride (98-107) mmol/L Glucose (74-99) mg/dL POC Glucose (mg/dL) 68 L (70-110) mg/dL Transferrin (204.0-354.0) mg/dL Total Protein (PEP) (6.2-8.2) g/dL Albumin (PEP) (3.80-4.90) g/dL [id number]-6-[id number] (0.60-1.00) g/dL CSF Total Protein (12-60) mg/dL IgM (40.0-280.0) mg/dL Rheumatoid Factor (0-15) IU/mL Free [place] LC, Quant (0.33-1.94) mg/dL Free Lambda LC, Quant (0.57-2.63) mg/dL Microbiology - Last 24 Hours (Table) 04/16/24 11:42 Blood Culture - Preliminary Blood
[2024-04-19 05:38] LABS: Glucose,Whole Blood 91 mg/dL (70-110)
--- NOTE | 2024-04-19 10:49 | P.PN ---
Subjective Progress Note Date: 04/18/24 04/18/2024: Patient was seen for a follow-up. Per report from the nursing staff and the sitter, patient at times becomes agitated, once in a while, when she tries to crawl out of bed and wants to leave and go home. Patient has been given Ativan 1 mg recently. Now she is somnolent. 04/17/2024: Patient was seen for a follow-up. He was present, who mentions that patient since morning has been "in and out of sleep". She is not combative. She is saying a few words but usually repeats. Occasionally she gets up. Sometimes she thrashes in the bed. 04/16/2024: Patient was seen for a follow-up. Patient continues to be very encephalopathic, somnolent. Patient has received numerous doses of Ativan, and also Haldol 5 mg for EEG. Therefore patient is very groggy. Examination limited. 04/15/2024: Patient was seen for a follow-up. Patient continues to be severely encephalopathic, very restless, moving her extremities randomly. Patient lifts her legs up and throws it down, sometimes hitting the side rail. Recommend seizure precautions and seizure pads. Patient could not have EEG performed today because of severe altered mental status. He was present, who states patient is "out of it", mostly sleeping, not talking. No seizures reported. Objective - Vital Signs Vital signs: Vital Signs Temp 98.6 F 04/19/24 04:50 Pulse 69 04/19/24 04:50 Resp 17 04/19/24 04:50 BP 115/69 04/19/24 04:50 Pulse Ox 97 04/19/24 04:50 FiO2 Intake & Output 04/18/24 04/19/24 04/19/24 18:59 06:59 18:59 Intake Total 1846 118 Output Total 4000 450 Balance -2154 -450 118 Weight 63.503 kg Intake: Oral 1500 118 Blood Product 346 Platelet Pheresis Pas 346 Psoralen Unit [id number] Output: Urine 4000 450 Straight 200 Other: Voiding Method Indwelling Catheter Indwelling Catheter # Voids 1 # Bowel Movements 1 - Exam Patient's mentation has much improved, although continues to fluctuate. Today she slightly worse. She states it is October and the year is 2021. She knows the state, but could not tell the city. Her speech is slightly slurred but no aphasia. Mentation very much fluctuating. Patient moving all 4 extremities. - Labs CBC & Chem 7: 04/18/24 07:57 04/18/24 07:49 Labs: Abnormal Lab Results - Last 24 Hours (Table) 04/16/24 04/18/24 04/18/24 Range/Units 11:42 16:00 16:43 POC Glucose (mg/dL) 68 L (70-110) mg/dL Albumin (PEP) 3.11 L (3.80-4.90) g/dL Oxifs-4-Iszenszpa 0.53 L (0.60-1.00) g/dL CSF Total Protein 63 H (12-60) mg/dL Free [place] LC, Quant 3.87 H (0.33-1.94) mg/dL Free [place]ambda LC, Quant 4.46 H (0.57-2.63) mg/dL Microbiology - Last 24 Hours (Table) 04/18/24 16:00 CSF Gram Stain - Preliminary Cerebral Spinal Fluid 04/16/24 11:42 Blood Culture - Preliminary Blood Assessment and Plan Assessment: * Altered mental status, likely due to metabolic encephalopathy. Reasons multifactorial as mentioned below. Rule out encephalitis. * History of alcoholism, probable DTs, from alcohol withdrawal. History of polysubstance abuse. * Bacteremia, unclear cause, ID on board * Elevated cardiac enzymes, cardiology on board * Elevated liver enzymes * Lactic acidosis * Mild renal insufficiency * Rhabdomyolysis * Possible UTI * Thrombocytopenia Plan: * Repeat EEG today 04/17/2024 was abnormal due to background slowing of moderate to severe degree. This is suggestive of generalized cerebral dysfunction. No epileptiform activity was seen. When compared to the EEG from 04/16/2024, the background has improved as well as triphasic waves are less frequent. * Initial EEG 04/16/2024 was significantly abnormal due to presence of disorganized background with slowing, suggestive of moderate to severe encephalopathy. Some intermittent sleep was also seen during the study. There were presence of frequent triphasic waves, which at times become more rhythmic at 1 Hz which may suggest underlying cortical irritability and may suggest tendency for seizures. No electrolyte and seizure however was recorded. Suggest prolonged EEG, if clinically indicated. * Increase Keppra to 1000 mg twice a day (increased on 04/17/2024). * Lumbar puncture to be performed today. Patient has given the consent. * Platelets are 51,000. Hematology has recommended for platelet transfusion during lumbar puncture. This will be performed during lumbar puncture. * Patient has positive blood cultures. Infectious disease on board. Patient currently on ceftriaxone 2 g IV PB daily. * We will empirically start acyclovir 10 mg/kg IV every 8 hours. * Continue lactulose. Ammonia level is normal 10. * Patient has elevated cardiac enzymes, cardiology on board. * Continue CIWA protocol. * Other medical management as per IM. * Continue seizure precautions and seizure pads to prevent injuries. Sitter is present.
[2024-04-19 11:44] LABS: Glucose,Whole Blood 140 mg/dL (70-110)
--- NOTE | 2024-04-19 14:58 | P.PN ---
Subjective Progress Note Date: 04/19/24 Principal diagnosis: Reason for follow-up is Bacteremia Patient is a 53-year-old female with a past medical history significant for reflux seizure from alcoholism liver disease GI bleed bipolar depression current everyday smoker patient has been brought to the hospital for evaluation of altered mental status changes did have a low-grade fever positive UA and blood culture with gram-negative prompting this consultation. On today's evaluation that is 04/19/2024, the patient continues to be afebrile, the patient is on room air and breathing comfortably, the Pt seem to be slightly more awake alert today and did answer simple question did have some nausea but no vomiting reported by the aide at the bedside and no diarrhea. No new lab has been obtained today, P did have an LP with only 1 nucleated cell glucose of 72 protein 63 Objective - Vital Signs Vital signs: Vital Signs Temp 97.7 F 04/19/24 11:50 Pulse 70 04/19/24 11:50 Resp 18 04/19/24 14:00 BP 117/71 04/19/24 11:50 Pulse Ox 96 04/19/24 12:15 FiO2 Intake & Output 04/18/24 04/19/24 04/19/24 18:59 06:59 18:59 Intake Total 1846 340 Output Total 4000 450 2200 Balance -2154 -450 -1860 Weight 63.503 kg Intake: Oral 1500 340 Blood Product 346 Platelet Pheresis Pas 346 Psoralen Unit [id number] Output: Urine 4000 450 2200 Straight 200 Other: Voiding Method Indwelling Catheter Indwelling Catheter Indwelling Catheter # Voids 1 # Bowel Movements 1 - Exam GENERAL DESCRIPTION: Middle-aged female lying in bed in no distress RESPIRATORY SYSTEM: Unlabored breathing , decreased breath sounds at bases HEART: S1 S2 regular rate and rhythm , ABDOMEN: Soft , no tenderness EXTREMITIES: No edema feet - Labs CBC & Chem 7: 04/18/24 07:57 04/18/24 07:49 Labs: Abnormal Lab Results - Last 24 Hours (Table) 04/16/24 04/18/24 04/18/24 Range/Units 11:42 16:00 16:43 POC Glucose (mg/dL) 68 L (70-110) mg/dL Albumin (PEP) 3.11 L (3.80-4.90) g/dL Nmkor-0-Nunh[place]afup 0.53 L (0.60-1.00) g/dL CSF Total Protein 63 H (12-60) mg/dL 04/19/24 Range/Units 11:41 POC Glucose (mg/dL) 140 H (70-110) mg/dL Albumin (PEP) (3.80-4.90) g/dL Scafy-9-Ssmoflnal (0.60-1.00) g/dL CSF Total Protein (12-60) mg/dL Microbiology - Last 24 Hours (Table) 04/18/24 16:00 CSF Gram Stain - Preliminary Cerebral Spinal Fluid 04/16/24 11:42 Blood Culture - Preliminary Blood Assessment and Plan (1) Bacteremia Current Visit: Yes Status: Acute Priority: High Code(s): R78.81 - BACTEREMIA SNOMED Code(s): 3195862 (2) UTI (urinary tract infection) Current Visit: Yes Status: Acute Priority: High Code(s): N39.0 - URINARY TRACT INFECTION, SITE NOT SPECIFIED SNOMED Code(s): 46316252 Plan: 1patient with a positive blood culture with gram-negative bacilli more likely urinary source as the patient abdomen was soft on clinical examination patient did have a abdominal ultrasound and the gallbladder was within normal limit currently do not have any abdominal cellulitis and neck was supple on clinical lamination 2-positive blood culture with multiple pathogen including staph epi and Acetobacter with a question of possible contamination 3-blood culture has been repeated and so far negative 4-patient CSF findings are not suggestive of encephalitis or meningitis Acyclovir can be discontinued May continue empiric Rocephin Dictation was produced using [employer] dictation software. please excuse any grammatical, word or spelling errors.
[2024-04-19 16:30] LABS: Glucose,Whole Blood 107 mg/dL (70-110)
[2024-04-19 17:09] LABS: Methylmalonic Acid 0.17 umol/L (<0.40)
--- NOTE | 2024-04-19 20:25 | P.PN ---
Subjective Patient is a 53 years old female with past medical history of alcoholic liver cirrhosis, depression history of suicidal ideation, history of seizure disorder, GERD, GI bleed, hepatitis C, history of heroin abuse. Patient was brought from home for altered mental status, patient was found by EMS on her face down on the trash, with strong odor and unkempt. Patient currently is very confused does not follow commands and cannot provide information She is lying in bed looks agitated and moving her extremity continuously especially the lower extremity, does not looks like a seizure. Also we checked her meningeal signs and looks absent Patient cannot take her oral medication and she was found hypertensive and tachycardic in the emergency room, propranolol on hold because of patient cannot take oral medication. IV Lopressor, clonidine patch and nitroglycerin patches provided also to help her with the blood pressure and heart rate. She is mildly tachypneic, she has low-grade temperature 99.9. WBC is slightly elevated at 13,000 hemoglobin 17, sample looks hemoconcentrated and expected to go down with fluid. Baseline WBC is 5-8000, and basal hemoglobin 11-15 Creatinine is mildly elevated 1.3. Lactic acid was significantly elevated 6.9 came down with IV fluid 2.5 Creatinine 1.3 with baseline 0.9-1.0, EKG showing sinus tachycardia at [address]-T changes Chest x-ray showing chronic changes CT of the facial with no facial bone fracture CT of the head and neck is negative for acute process Ammonia level was 10 which is low Troponin is elevated 1.5-1.6 and looks steady. ABG showed normal pH 7.35 and pCO2 41 Serum alcohol and urine drug screen are requested and they are elevated Patient was started on ceftriaxone, CIWA protocol and thiamine Also started on her home dose of IV Keppra. Also patient has wound on her left leg about 2 to 3 inches in diameter with no active bleeding 04/15/2024 Patient still confused, she still agitated moving her legs bilaterally. She is nonverbal, does not open eyes spontaneously or to verbal or tactile stimuli However her abdomen looks soft with no evidence of tenderness or guarding, no right upper quadrant tenderness. No suprapubic or flank tenderness Patient saturating well on 2 L oxygen via nasal cannula Sitter at bedside Thibodeaux catheter in place Vitals are stable, blood pressure is slightly elevated. No more fever since admission. WBC trending down to 11.3, hemoglobin improved 14.1, creatinine back to reference range at 0.8. Lactic acid improved 92.0 which is the reference. Liver enzymes still mildly elevated and abdominal ultrasound reviewed by myself showing cirrhosis and splenomegaly with evidence of portal hypertension Bilirubin and liver enzymes mildly elevated. Patient remains on ceftriaxone, urine and blood cultures are pending. Patient with high CIWA score ranging between 12, 13 and 7. Neurologist evaluated the patient and EEG pending 04/16/2024 Patient remains confused, does not open eyes to verbal or tactile stimuli. She is less agitated than since admission however she can move both extremities symmetrically. There is no neck stiffness on admission or today. She has systolic murmur, I discussed the case with cardiology team will going to order echocardiogram for now however suspicion for SBE is low for now. She has a positive blood culture but looks like contamination. Repeat blood culture is requested Urine culture still pending Patient remains on ceftriaxone and gentle hydration. Blood pressure controlled Urine drug screen is negative on admission as well as serum alcohol. Abdominal ultrasound showing cirrhosis with splenomegaly. Ammonia level was low we will going to recheck ammonia level again EEG pending for possible seizure but there is no seizure-like activity at bedside We are going to discuss the case further with ID and neurology team for plan of care 04/17/2024 Patient mentation remains severely impaired, per staff she woke up for short time yesterday around 10 PM and she was oriented x 1 but overnight and this morning she is confused like before. She is not responding to verbal or tactile stimuli. No abnormal movements. No seizure-like activities. She remains on broad-spectrum antibiotic I discussed the case with hematology team they recommend to do lumbar puncture together with platelet transfusion Also patient Keppra dose increased per neurologist Was still pending family to call back. 04/18/2024 Patient today is more awake than last few days, she is up in bed drowsy groggy but she could tell me her name. She could tell me with whom she lives her [id number] Maggie which is something could not answer the last few days, however she still confused regarding place and time. She does not looks have full insight into her situation. But she follows command. There is no obvious asymmetry in movement of upper extremities, no overt abnormal movements. Sitter remains at bedside Creatinine normal 0.7 She remains on ceftriaxone and acyclovir She is on normal saline 75 mL/h Also she is on Keppra 1000 twice daily 04/19/2024 Patient showed significant improvement in her mentation over the last 2 days. Today she is even better. She is more awake alert and interactive. She is oriented to the surroundings. She looks somewhat calm but tired. No headache or dizziness no specific complaints. She has numbness in her right foot but this is chronic for many months as she explains. CSF examination was unremarkable for intracranial infection, acyclovir was discontinued, currently she is covered with Rocephin Blood pressure was stable therefore discontinue nitroglycerin topical She is currently kept on Keppra 1000 twice daily which I think once started at a higher dose patient showed significant improvement on the top patient when was at home she had froth in her mouth and she wet herself. Maggie her [id number]. Regardless patient is currently improving Active Medications Generic Name Dose Route Start Last Admin Trade Name Freq PRN Reason Stop Dose Admin Acetaminophen 325 mg 04/14/24 16:19 04/16/24 18:19 Acetaminophen Suppository 650 Mg Supp RECTAL 325 mg Q6HR PRN Administration Fever and/ or Pain Acetaminophen 650 mg 04/17/24 14:36 04/19/24 06:13 Acetaminophen Tab 325 Mg Tab PO 650 mg Q6HR PRN Administration Fever and/ or Pain Baclofen 10 mg 04/14/24 21:00 04/18/24 20:49 Baclofen 10 Mg Tab PO 10 mg HS SHASHI Administration Bumetanide 0.5 mg 04/15/24 09:00 04/19/24 08:51 Bumetanide 0.5 Mg Tablet PO 0.5 mg DAILY SHASHI Administration Buspirone HCl 15 mg 04/14/24 21:00 04/19/24 08:50 Buspirone Hcl 5 Mg Tab PO 15 mg BID SHASHI Administration Chlorpromazine HCl 25 mg 04/14/24 21:00 04/18/24 20:49 Chlorpromazine 25 Mg Tab PO 25 mg HS SHASHI Administration Clonidine HCl 1 patch 04/14/24 18:00 04/14/24 18:48 Clonidine 0.2 Mg/24hr Patch TRANSDERM 1 patch Q7D SHASHI Administration Hydroxyzine HCl 100 mg 04/14/24 16:13 Hydroxyzine Hcl 25 Mg Tab PO Q6H PRN Anxiety Ceftriaxone Sodium 2 gm/ 50 mls @ 100 mls/hr 04/15/24 09:00 04/19/24 08:51 Sodium Chloride IVPB 100 mls/hr DAILY SHASHI Administration Protocol Dextrose/Sodium Chloride 1,000 mls @ 75 mls/hr 04/17/24 06:30 04/19/24 08:49 Dextrose 5%-Ns Iv Soln IV 75 mls/hr .[id number] SHASHI Administration Labetalol HCl 10 mg 04/14/24 19:23 04/15/24 11:59 Labetalol 5 Mg/Ml Vial Mdv IVP 10 mg Q4H PRN Administration Blood Pressure - High Lactulose 10 gm 04/14/24 22:00 04/19/24 15:39 Lactulose 20 Gm/30 Ml Cup PO 10 gm TID SHASHI Administration Levetiracetam 1,000 mg 04/17/24 09:00 04/19/24 08:51 Levetiracetam Iv 500 Mg/5 Ml Vial IVP 1,000 mg Q12HR SHASHI Administration Levothyroxine Sodium 50 mcg 04/15/24 06:30 04/19/24 06:13 Levothyroxine 50 Mcg Tab PO 50 mcg DAILY@0630 SHASHI Administration Lorazepam 1 mg 04/14/24 10:54 04/18/24 22:38 Lorazepam 2 Mg/Ml Inj IV 1 mg Q1HR PRN Administration CIWA 10 to 15 Lorazepam 1 mg 04/14/24 10:54 04/15/24 12:00 Lorazepam 2 Mg/Ml Inj IV 1 mg Q2HR PRN Administration CIWA 8 or 9 Lorazepam 2 mg 04/14/24 10:54 Lorazepam 2 Mg/Ml Inj IV Q6HR PRN Seizures Midodrine 5 mg 04/14/24 17:30 04/19/24 12:15 Midodrine 5 Mg Tab PO Not Given TID-W/MEALS SHASHI Mirtazapine 45 mg 04/14/24 21:00 04/18/24 20:49 Mirtazapine 45 Mg Tablet PO 45 mg HS SHASHI Administration Naloxone HCl 0.2 mg 04/14/24 10:57 Naloxone 0.4 Mg/Ml 1 Ml Vial IV Q2M PRN Opioid Reversal Nicotine 1 patch 04/18/24 10:15 04/19/24 08:50 Nicotine 14mg/24hr Patch TRANSDERM 1 patch DAILY SHASHI Administration Non-Formulary Medication 1 film 04/14/24 22:00 04/19/24 15:42 Buprenorphine/Naloxone 8mg/2mg SUBLINGUAL Not Given TID SHASHI Ondansetron HCl 4 mg 04/14/24 10:57 Ondansetron 4 Mg/2 Ml Vial IVP Q8HR PRN Nausea And Vomiting Pantoprazole Sodium 40 mg 04/15/24 09:00 04/19/24 08:51 Pantoprazole 40 Mg/10 Ml Vial IV 40 mg DAILY SHASHI Administration Propranolol HCl 60 mg 04/14/24 21:00 04/18/24 20:49 Propranolol La 60 Mg Cap.Sa.24h PO 60 mg HS SHASHI Administration Rifaximin 550 mg 04/14/24 21:00 04/19/24 15:43 Rifaximin 550 Mg Tablet PO 05/14/24 21:01 Not Given BID SHASHI Protocol Spironolactone 25 mg 04/14/24 21:00 04/19/24 08:50 Spironolactone 25 Mg Tab PO 25 mg BID SHASHI Administration Thiamine HCl 100 mg 04/15/24 09:00 04/19/24 08:50 Thiamine 100 Mg Tab PO 100 mg DAILY SHASHI Administration Tizanidine HCl 4 mg 04/14/24 21:00 04/18/24 20:48 Tizanidine 4 Mg Tab PO 4 mg HS SHASHI Administration Topiramate 50 mg 04/14/24 21:00 04/19/24 08:50 Topiramate 25 Mg Tab PO 50 mg BID SHASHI Administration Objective - Vital Signs Vital signs: Vital Signs Temp 97.9 F 04/19/24 08:50 Pulse 71 04/19/24 08:50 Resp 18 04/19/24 08:50 BP 133/91 04/19/24 08:50 Pulse Ox 96 04/19/24 08:50 FiO2 Intake & Output 04/18/24 04/19/24 04/19/24 18:59 06:59 18:59 Intake Total 1846 118 Output Total 4000 450 Balance -2154 -450 118 Weight 63.503 kg Intake: Oral 1500 118 Blood Product 346 Platelet Pheresis Pas 346 Psoralen Unit [id number] Output: Urine 4000 450 Straight 200 Other: Voiding Method Indwelling Catheter Indwelling Catheter Indwelling Catheter # Voids 1 # Bowel Movements 1 - Exam -GENERAL: The patient is confused, does not respond to stimuli, agitated HEENT: Pupils are round and equally reacting to light. EOMI. No scleral icterus. No conjunctival pallor. Normocephalic, atraumatic. No pharyngeal erythema. No thyromegaly. CARDIOVASCULAR: S1 and S2 present. No murmurs, rubs, or gallops. PULMONARY: Chest is clear to auscultation, no wheezing , no crackles. -ABDOMEN: Soft, nontender, nondistended, normoactive bowel sounds. No palpable organomegaly. Thibodeaux catheter in place MUSCULOSKELETAL: No joint swelling or deformity. -EXTREMITIES: No cyanosis, clubbing, or pedal edema. Wound with no evidence of infection on the left lateral leg NEUROLOGICAL: Gross neurological examination did not reveal any focal deficits. SKIN: No rashes. no petechiae. - Labs CBC & Chem 7: 04/18/24 07:57 04/18/24 07:49 Labs: Abnormal Lab Results - Last 24 Hours (Table) 04/16/24 04/18/24 04/18/24 Range/Units 11:42 16:00 16:43 POC Glucose (mg/dL) 68 L (70-110) mg/dL Albumin (PEP) 3.11 L (3.80-4.90) g/dL [id number]-[id number]-Iixrovyyp 0.53 L (0.60-1.00) g/dL CSF Total Protein 63 H (12-60) mg/dL Free [place] LC, Quant 3.87 H (0.33-1.94) mg/dL Free [place]ambda LC, Quant 4.46 H (0.57-2.63) mg/dL 04/19/24 Range/Units 11:41 POC Glucose (mg/dL) 140 H (70-110) mg/dL Albumin (PEP) (3.80-4.90) g/dL Dgech-5-Gpgrhscsz (0.60-1.00) g/dL CSF Total Protein (12-60) mg/dL Free [place] LC, Quant (0.33-1.94) mg/dL Free Lambda LC, Quant (0.57-2.63) mg/dL Microbiology - Last 24 Hours (Table) 04/18/24 16:00 CSF Gram Stain - Preliminary Cerebral Spinal Fluid 06/26/24 11:42 Blood Culture - Preliminary Blood Assessment and Plan Assessment: Altered mental status, could be metabolic/toxic encephalopathy associated with acute Delirium Alcohol use disorder, possible alcohol withdrawal delirium tremens Dehydration and acute kidney injury most likely prerenal Possible sepsis with high WBC, fever, UTI suspected, cellulitis of the left leg is felt less likely however cannot rule out other sources Seizure disorder on Keppra Alcoholic liver cirrhosis Left leg wound History of GERD History of GI bleed Hepatitis C history of heroin abuse Plan: Continue with ceftriaxone Continue with normal saline 75 mL/h CIWA protocol and thiamine While patient cannot take oral will put the patient on clonidine 0.2 mg patch. Discontinue nitroglycerin topical Follow-up blood culture Cardiology and neurology consult Infectious disease consult on the case Labs and medication were reviewed.. Continue same treatment. Continue with symptomatic treatment. Resume home medication. Monitor labs and vitals. DVT and GI prophylaxis. Further recommendations as per clinical course of the patient DVT prophylaxis: Subcutaneous heparin GI Prophylaxis: Pepcid PT/OT: Pending Prognosis is guarded.
[2024-04-19 20:31] LABS: Glucose,Whole Blood 127 mg/dL (70-110)
[2024-04-20 06:11] LABS: Glucose,Whole Blood 103 mg/dL (70-110)
[2024-04-20 08:14] LABS: INR 1.1 (<1.2)
[2024-04-20 11:21] LABS: Glucose,Whole Blood 110 mg/dL (70-110)
--- NOTE | 2024-04-20 15:54 | P.PN ---
Subjective Progress Note Date: 04/20/24 Principal diagnosis: Reason for follow-up is Bacteremia Patient is a 53-year-old female with a past medical history significant for reflux seizure from alcoholism liver disease GI bleed bipolar depression current everyday smoker patient has been brought to the hospital for evaluation of altered mental status changes did have a low-grade fever positive UA and blood culture with gram-negative prompting this consultation. On today's evaluation that is 04/20/2024, Patient is afebrile patient is currently on room air and breathing comfortably no distress patient has received medication to help her sedate currently sleeping in no distress no vomiting or diarrhea has been reported. Patient did have INR of 1.1 no other labs has been done blood culture repeat has been negative Objective - Vital Signs Vital signs: Vital Signs Temp 98.5 F 04/20/24 11:23 Pulse 72 04/20/24 13:49 Resp 16 04/20/24 11:23 BP 114/75 04/20/24 11:23 Pulse Ox 97 04/20/24 11:23 FiO2 Intake & Output 04/19/24 04/20/24 04/20/24 18:59 06:59 18:59 Intake Total 340 237 Output Total 3100 1125 925 Balance -2760 -1125 -688 Intake: Oral 340 237 Output: Urine 3100 1125 925 Straight 625 Other: Voiding Method Indwelling Catheter Indwelling Catheter Indwelling Catheter - Exam GENERAL DESCRIPTION: Middle-aged female lying in bed in no distress RESPIRATORY SYSTEM: Unlabored breathing , decreased breath sounds at bases HEART: S1 S2 regular rate and rhythm , ABDOMEN: Soft , no tenderness EXTREMITIES: No edema feet - Labs CBC & Chem 7: 04/18/24 07:57 04/18/24 07:49 Labs: Abnormal Lab Results - Last 24 Hours (Table) 04/19/24 Range/Units 20:29 POC Glucose (mg/dL) 127 H (70-110) mg/dL Microbiology - Last 24 Hours (Table) 04/18/24 16:00 CSF Gram Stain - Preliminary Cerebral Spinal Fluid CSF Culture - Preliminary 04/16/24 11:42 Blood Culture - Preliminary Blood Assessment and Plan (1) Bacteremia Current Visit: Yes Status: Acute Priority: High Code(s): R78.81 - BACTEREMIA SNOMED Code(s): 8121363 (2) UTI (urinary tract infection) Current Visit: Yes Status: Acute Priority: High Code(s): N39.0 - URINARY TRACT INFECTION, SITE NOT SPECIFIED SNOMED Code(s): 52693033 Plan: 1patient with a positive blood culture with gram-negative bacilli more likely urinary source as the patient abdomen was soft on clinical examination patient did have a abdominal ultrasound and the gallbladder was within normal limit currently do not have any abdominal cellulitis and neck was supple on clinical lamination 2-positive blood culture with multiple pathogen including staph epi and Acetobacter with a question of possible contamination 3-blood culture has been repeated and so far negative 4-patient CSF findings are not suggestive of encephalitis or meningitis Acyclovir has been discontinued and may consider discontinuation of Rocephin as well Dictation was produced using [employer] dictation software. please excuse any grammatical, word or spelling errors. Time with Patient: Less than 30
[2024-04-20 16:23] LABS: Glucose,Whole Blood 130 mg/dL (70-110)
[2024-04-20 19:46] LABS: Glucose,Whole Blood 136 mg/dL (70-110)
--- NOTE | 2024-04-20 21:53 | P.PN ---
Subjective Patient is a 53 years old female with past medical history of alcoholic liver cirrhosis, depression history of suicidal ideation, history of seizure disorder, GERD, GI bleed, hepatitis C, history of heroin abuse. Patient was brought from home for altered mental status, patient was found by EMS on her face down on the trash, with strong odor and unkempt. Patient currently is very confused does not follow commands and cannot provide information She is lying in bed looks agitated and moving her extremity continuously especially the lower extremity, does not looks like a seizure. Also we checked her meningeal signs and looks absent Patient cannot take her oral medication and she was found hypertensive and tachycardic in the emergency room, propranolol on hold because of patient cannot take oral medication. IV Lopressor, clonidine patch and nitroglycerin patches provided also to help her with the blood pressure and heart rate. She is mildly tachypneic, she has low-grade temperature 99.9. WBC is slightly elevated at 13,000 hemoglobin 17, sample looks hemoconcentrated and expected to go down with fluid. Baseline WBC is 5-8000, and basal hemoglobin 11-15 Creatinine is mildly elevated 1.3. Lactic acid was significantly elevated 6.9 came down with IV fluid 2.5 Creatinine 1.3 with baseline 0.9-1.0, EKG showing sinus tachycardia at [address]-T changes Chest x-ray showing chronic changes CT of the facial with no facial bone fracture CT of the head and neck is negative for acute process Ammonia level was 10 which is low Troponin is elevated 1.5-1.6 and looks steady. ABG showed normal pH 7.35 and pCO2 41 Serum alcohol and urine drug screen are requested and they are elevated Patient was started on ceftriaxone, CIWA protocol and thiamine Also started on her home dose of IV Keppra. Also patient has wound on her left leg about 2 to 3 inches in diameter with no active bleeding 04/15/2024 Patient still confused, she still agitated moving her legs bilaterally. She is nonverbal, does not open eyes spontaneously or to verbal or tactile stimuli However her abdomen looks soft with no evidence of tenderness or guarding, no right upper quadrant tenderness. No suprapubic or flank tenderness Patient saturating well on 2 L oxygen via nasal cannula Sitter at bedside Thibodeaux catheter in place Vitals are stable, blood pressure is slightly elevated. No more fever since admission. WBC trending down to 11.3, hemoglobin improved 14.1, creatinine back to reference range at 0.8. Lactic acid improved 92.0 which is the reference. Liver enzymes still mildly elevated and abdominal ultrasound reviewed by myself showing cirrhosis and splenomegaly with evidence of portal hypertension Bilirubin and liver enzymes mildly elevated. Patient remains on ceftriaxone, urine and blood cultures are pending. Patient with high CIWA score ranging between 12, 13 and 7. Neurologist evaluated the patient and EEG pending 04/16/2024 Patient remains confused, does not open eyes to verbal or tactile stimuli. She is less agitated than since admission however she can move both extremities symmetrically. There is no neck stiffness on admission or today. She has systolic murmur, I discussed the case with cardiology team will going to order echocardiogram for now however suspicion for SBE is low for now. She has a positive blood culture but looks like contamination. Repeat blood culture is requested Urine culture still pending Patient remains on ceftriaxone and gentle hydration. Blood pressure controlled Urine drug screen is negative on admission as well as serum alcohol. Abdominal ultrasound showing cirrhosis with splenomegaly. Ammonia level was low we will going to recheck ammonia level again EEG pending for possible seizure but there is no seizure-like activity at bedside We are going to discuss the case further with ID and neurology team for plan of care 04/17/2024 Patient mentation remains severely impaired, per staff she woke up for short time yesterday around 10 PM and she was oriented x 1 but overnight and this morning she is confused like before. She is not responding to verbal or tactile stimuli. No abnormal movements. No seizure-like activities. She remains on broad-spectrum antibiotic I discussed the case with hematology team they recommend to do lumbar puncture together with platelet transfusion Also patient Keppra dose increased per neurologist Was still pending family to call back. 04/18/2024 Patient today is more awake than last few days, she is up in bed drowsy groggy but she could tell me her name. She could tell me with whom she lives her [id number] Maggie which is something could not answer the last few days, however she still confused regarding place and time. She does not looks have full insight into her situation. But she follows command. There is no obvious asymmetry in movement of upper extremities, no overt abnormal movements. Sitter remains at bedside Creatinine normal 0.7 She remains on ceftriaxone and acyclovir She is on normal saline 75 mL/h Also she is on Keppra 1000 twice daily 04/19/2024 Patient showed significant improvement in her mentation over the last 2 days. Today she is even better. She is more awake alert and interactive. She is oriented to the surroundings. She looks somewhat calm but tired. No headache or dizziness no specific complaints. She has numbness in her right foot but this is chronic for many months as she explains. CSF examination was unremarkable for intracranial infection, acyclovir was discontinued, currently she is covered with Rocephin Blood pressure was stable therefore discontinue nitroglycerin topical She is currently kept on Keppra 1000 twice daily which I think once started at a higher dose patient showed significant improvement on the top patient when was at home she had froth in her mouth and she wet herself. Maggie her [id number]. Regardless patient is currently improving 04/20/2024 Patient is becoming more awake and more interactive She is calm she feels hungry Denies any pain or headache. She moves extremity symmetrically Currently she is on Rocephin and blood culture is negative so far Will ask for PT OT evaluation Objective - Vital Signs Vital signs: Vital Signs Temp 98.5 F 04/20/24 11:23 Pulse 72 04/20/24 11:23 Resp 16 04/20/24 11:23 BP 114/75 04/20/24 11:23 Pulse Ox 97 04/20/24 11:23 FiO2 Intake & Output 04/19/24 04/20/24 04/20/24 18:59 06:59 18:59 Intake Total 340 0 Output Total 3100 1125 300 Balance -8920 -1125 -300 Intake: Oral 340 0 Output: Urine 3100 1125 300 Straight 625 Other: Voiding Method Indwelling Catheter Indwelling Catheter Indwelling Catheter - Exam -GENERAL: The patient is confused, does not respond to stimuli, agitated HEENT: Pupils are round and equally reacting to light. EOMI. No scleral icterus. No conjunctival pallor. Normocephalic, atraumatic. No pharyngeal erythema. No thyromegaly. CARDIOVASCULAR: S1 and S2 present. No murmurs, rubs, or gallops. PULMONARY: Chest is clear to auscultation, no wheezing , no crackles. -ABDOMEN: Soft, nontender, nondistended, normoactive bowel sounds. No palpable organomegaly. Thibodeaux catheter in place MUSCULOSKELETAL: No joint swelling or deformity. -EXTREMITIES: No cyanosis, clubbing, or pedal edema. Wound with no evidence of infection on the left lateral leg NEUROLOGICAL: Gross neurological examination did not reveal any focal deficits. SKIN: No rashes. no petechiae. - Labs CBC & Chem 7: 04/18/24 07:57 04/18/24 07:49 Labs: Abnormal Lab Results - Last 24 Hours (Table) 04/19/24 Range/Units 20:29 POC Glucose (mg/dL) 127 H (70-110) mg/dL Microbiology - Last 24 Hours (Table) 04/18/24 16:00 CSF Gram Stain - Preliminary Cerebral Spinal Fluid CSF Culture - Preliminary 04/16/24 11:42 Blood Culture - Preliminary Blood Assessment and Plan Assessment: Altered mental status, could be metabolic/toxic encephalopathy associated with acute Delirium Alcohol use disorder, possible alcohol withdrawal delirium tremens Dehydration and acute kidney injury most likely prerenal Possible sepsis with high WBC, fever, UTI suspected, cellulitis of the left leg is felt less likely however cannot rule out other sources Seizure disorder on Kera Alcoholic liver cirrhosis Left leg wound History of GERD History of GI bleed Hepatitis C history of heroin abuse Plan: Continue with ceftriaxone Continue with normal saline 75 mL/h CIWA protocol and thiamine While patient cannot take oral will put the patient on clonidine 0.2 mg patch. Discontinue nitroglycerin topical Follow-up blood culture Cardiology and neurology consult Infectious disease consult on the case Labs and medication were reviewed.. Continue same treatment. Continue with symptomatic treatment. Resume home medication. Monitor labs and vitals. DVT and GI prophylaxis. Further recommendations as per clinical course of the p atient DVT prophylaxis: Subcutaneous heparin GI Prophylaxis: Pepcid PT/OT: Pending Prognosis is guarded.
--- NOTE | 2024-04-21 01:41 | P.PN ---
Subjective Progress Note Date: 04/20/24 04/20/2024: Patient was seen for a follow-up. He mentions that patient ate breakfast. She is eating a little "here and there". Patient's mentation is much improved. Patient states that she has not drank any alcohol since her last admission in June 2023. Patient completely denies any drug use. Patient claims of having "a lot of problems sleeping". Ativan helps. She also comp lains of diagnosis of glaucoma. On asking as to the cause of presentation, patient states that she lost her 2 years and 5 months ago, and was feeling depressed. Patient completely denies any overdose or suicide attempt. 04/18/2024: Patient was seen for a follow-up. Per report from the nursing staff and the sitter, patient at times becomes agitated, once in a while, when she tries to crawl out of bed and wants to leave and go home. Patient has been given Ativan 1 mg recently. Now she is somnolent. 04/17/2024: Patient was seen for a follow-up. He was present, who mentions that patient since morning has been "in and out of sleep". She is not combative. She is saying a few words but usually repeats. Occasionally she gets up. Sometimes she thrashes in the bed. 04/16/2024: Patient was seen for a follow-up. Patient continues to be very encephalopathic, somnolent. Patient has received numerous doses of Ativan, and also Haldol 5 mg for EEG. Therefore patient is very groggy. Examination limited. 04/15/2024: Patient was seen for a follow-up. Patient continues to be severely encephalopathic, very restless, moving her extremities randomly. Patient lifts her legs up and throws it down, sometimes hitting the side rail. Recommend seizure precautions and seizure pads. Patient could not have EEG performed today because of severe altered mental status. He was present, who states patient is "out of it", mostly sleeping, not talking. No seizures reported. Objective - Vital Signs Vital signs: Vital Signs Temp 98.5 F 04/20/24 11:23 Pulse 72 04/20/24 11:23 Resp 16 04/20/24 11:23 BP 114/75 04/20/24 11:23 Pulse Ox 97 04/20/24 11:23 FiO2 Intake & Output 04/19/24 04/20/24 04/20/24 18:59 06:59 18:59 Intake Total 340 0 Output Total 3100 1125 300 Balance -2760 -1125 -300 Intake: Oral 340 0 Output: Urine 3100 1125 300 Straight 625 Other: Voiding Method Indwelling Catheter Indwelling Catheter Indwelling Catheter - Exam Patient's mentation has much improved. Patient knows her date of , and knows that she is 53 years old. She states is the month of February and the year is 2023 and that she is in [facility] in a hospital but does not know the name. She knows to him about the current president Mr. Mcleod. She frequently sits in the bed, and curls forward and drops her head. Patient moving all 4 extremities. - Labs CBC & Chem 7: 04/18/24 07:57 04/18/24 07:49 Labs: Abnormal Lab Results - Last 24 Hours (Table) 04/19/24 Range/Units 20:29 POC Glucose (mg/dL) 127 H (70-110) mg/dL Microbiology - Last 24 Hours (Table) 04/18/24 16:00 CSF Gram Stain - Preliminary Cerebral Spinal Fluid CSF Culture - Preliminary 04/16/24 11:42 Blood Culture - Preliminary Blood Assessment and Plan Assessment: * Altered mental status, likely due to metabolic encephalopathy. Reasons multifactorial as mentioned below. Encephalitis/meningitis ruled out. * History of alcoholism, rule out TEDs. Patient completely denies any alcohol consumption since last admission in June 2023. * Bacteremia, unclear cause, ID on board * Elevated cardiac enzymes, cardiology on board * Elevated liver enzymes, improved * Lactic acidosis * Mild renal insufficiency, resolved * Rhabdomyolysis * Possible UTI * Thrombocytopenia Plan: * Repeat EEG today 04/17/2024 was abnormal due to background slowing of moderate to severe degree. This is suggestive of generalized cerebral dysfunction. No epileptiform activity was seen. When compared to the EEG from 04/16/2024, the background has improved as well as triphasic waves are less frequent. * Initial EEG 04/16/2024 was significantly abnormal due to presence of disorganized background with slowing, suggestive of moderate to severe encephalopathy. Some intermittent sleep was also seen during the study. There were presence of frequent triphasic waves, which at times become more rhythmic at 1 Hz which may suggest underlying cortical irritability and may suggest tendency for seizures. No electrolyte and seizure however was recorded. Suggest prolonged EEG, if clinically indicated. * Increase Keppra to 1000 mg twice a day (increased on 04/17/2024). * Platelets are 51,000. Hematology has recommended for platelet transfusion during lumbar puncture. This was performed during lumbar puncture. * Patient has positive blood cultures. Infectious disease on board. Patient currently on ceftriaxone 2 g IV PB daily. * CSF was colorless and clear. CSF WBC count 1, RBC 1, CSF glucose 62, CSF protein 63/60. Viral panel negative including HSV-1 and HSV 2 PCR. MS panel pending. * Discontinue acyclovir * HIV testing pending * Check MRI of the brain with and without contrast * Continue lactulose. Ammonia level is normal 10. * Patient has elevated cardiac enzymes, cardiology on board. * Continue CIWA protocol. * Other medical management as per IM. * Continue seizure precautions and seizure pads to prevent injuries. Sitter is present. * Dr. Diogenes Davis to resume neurology service in the morning.
--- NOTE | 2024-04-21 02:05 | P.PCN ---
Date of Procedure: 04/18/24 Preoperative Diagnosis: Altered mental status, rule out encephalitis meningitis Postoperative Diagnosis: Altered mental status, rule out encephalitis meningitis Procedure(s) Performed: Lumbar puncture Anesthesia: local Surgeon: Miko Tatum Estimated Blood Loss (ml): 0 Pathology: other Condition: stable Disposition: floor Indications for Procedure: Rule out meningitis or encephalitis Description of Procedure: Informed consent was obtained from patient and her daughter. Very detailed risks and benefits of the procedure, and the indication of procedure was explained to the patient in detail in the presence of nurse. She was informed of the risk of infection, bleeding, numbness, back pain, and the features of post spinal headache and the treatment. Patient was placed in the right lateral recumbent position. The procedure was performed under strict aseptic conditions. L4 lumbar space was identified and marked. Low back region was sterilized with ChloraPrep and then with Betadine, and anesthetized with 1% lidocaine. A spinal needle 20-gauge, 3.5 inch inserted at L4 lumbar space. I was able to enter subarachnoid space in the first pass. The spinal fluid was very clear, colorless, atraumatic. Opening pressure was not checked. About 10 to 12 cc of spinal fluid was collected in 4 tubes. Stylette was reintroduced, spinal needle withdrawn. Band-Aid applied. Patient was recommended to lay flat for half an hour. Patient tolerated the procedure very well.
[2024-04-21] MEDS: ONDANSETRON 4 MG/2 ML VIAL IVP PRN (02:18)
[2024-04-21 06:33] LABS: Glucose,Whole Blood 102 mg/dL (70-110)
[2024-04-21 11:15] LABS: Glucose,Whole Blood 239 mg/dL (70-110)
[2024-04-21 13:09] LABS: IgG - CSF 2.8 mg/dL (0.0 - 3.4); IgG/Albumin Index (CSF) 0.51 (0.00 - 0.77); Immunoglobulin G 765 mg/dL (700 - 1600)
[2024-04-21 13:18] LABS: HIV 2 AB Non-Reactive (Non-Reactive); HIV AB P24 Non-Reactive (Non-Reactive); HIV P24 AG Non-Reactive (Non-Reactive)
[2024-04-21 16:28] LABS: Glucose,Whole Blood 93 mg/dL (70-110)
[2024-04-21 20:15] LABS: Glucose,Whole Blood 111 mg/dL (70-110)
--- NOTE | 2024-04-21 23:59 | XR ---
EXAMINATION TYPE: XR elbow limited LT DATE OF EXAM: 04/21/2024 CLINICAL HISTORY: swelling TECHNIQUE: Frontal and lateral images of the left elbow are obtained. COMPARISON: None FINDINGS: There is no acute displaced fracture evident in the left elbow. Moderate to severe spurrin g at the elbow joint is present. Peripheral IV at this level is seen. IMPRESSION: As above.
[2024-04-22 06:05] LABS: Glucose,Whole Blood 107 mg/dL (70-110)
--- NOTE | 2024-04-22 06:55 | P.PN ---
Subjective Patient is a 53 years old female with past medical history of alcoholic liver cirrhosis, depression history of suicidal ideation, history of seizure disorder, GERD, GI bleed, hepatitis C, history of heroin abuse. Patient was brought from home for altered mental status, patient was found by EMS on her face down on the trash, with strong odor and unkempt. Patient currently is very confused does not follow commands and cannot provide information She is lying in bed looks agitated and moving her extremity continuously especially the lower extremity, does not looks like a seizure. Also we checked her meningeal signs and looks absent Patient cannot take her oral medication and she was found hypertensive and tachycardic in the emergency room, propranolol on hold because of patient cannot take oral medication. IV Lopressor, clonidine patch and nitroglycerin patches provided also to help her with the blood pressure and heart rate. She is mildly tachypneic, she has low-grade temperature 99.9. WBC is slightly elevated at 13,000 hemoglobin 17, sample looks hemoconcentrated and expected to go down with fluid. Baseline WBC is 5-8000, and basal hemoglobin 11-15 Creatinine is mildly elevated 1.3. Lactic acid was significantly elevated 6.9 came down with IV fluid 2.5 Creatinine 1.3 with baseline 0.9-1.0, EKG showing sinus tachycardia at [address]-T changes Chest x-ray showing chronic changes CT of the facial with no facial bone fracture CT of the head and neck is negative for acute process Ammonia level was 10 which is low Troponin is elevated 1.5-1.6 and looks steady. ABG showed normal pH 7.35 and pCO2 41 Serum alcohol and urine drug screen are requested and they are elevated Patient was started on ceftriaxone, CIWA protocol and thiamine Also started on her home dose of IV Keppra. Also patient has wound on her left leg about 2 to 3 inches in diameter with no active bleeding 04/15/2024 Patient still confused, she still agitated moving her legs bilaterally. She is nonverbal, does not open eyes spontaneously or to verbal or tactile stimuli However her abdomen looks soft with no evidence of tenderness or guarding, no right upper quadrant tenderness. No suprapubic or flank tenderness Patient saturating well on 2 L oxygen via nasal cannula Sitter at bedside Thibodeaux catheter in place Vitals are stable, blood pressure is slightly elevated. No more fever since admission. WBC trending down to 11.3, hemoglobin improved 14.1, creatinine back to reference range at 0.8. Lactic acid improved 92.0 which is the reference. Liver enzymes still mildly elevated and abdominal ultrasound reviewed by myself showing cirrhosis and splenomegaly with evidence of portal hypertension Bilirubin and liver enzymes mildly elevated. Patient remains on ceftriaxone, urine and blood cultures are pending. Patient with high CIWA score ranging between 12, 13 and 7. Neurologist evaluated the patient and EEG pending 04/16/2024 Patient remains confused, does not open eyes to verbal or tactile stimuli. She is less agitated than since admission however she can move both extremities symmetrically. There is no neck stiffness on admission or today. She has systolic murmur, I discussed the case with cardiology team will going to order echocardiogram for now however suspicion for SBE is low for now. She has a positive blood culture but looks like contamination. Repeat blood culture is requested Urine culture still pending Patient remains on ceftriaxone and gentle hydration. Blood pressure controlled Urine drug screen is negative on admission as well as serum alcohol. Abdominal ultrasound showing cirrhosis with splenomegaly. Ammonia level was low we will going to recheck ammonia level again EEG pending for possible seizure but there is no seizure-like activity at bedside We are going to discuss the case further with ID and neurology team for plan of care 04/17/2024 Patient mentation remains severely impaired, per staff she woke up for short time yesterday around 10 PM and she was oriented x 1 but overnight and this morning she is confused like before. She is not responding to verbal or tactile stimuli. No abnormal movements. No seizure-like activities. She remains on broad-spectrum antibiotic I discussed the case with hematology team they recommend to do lumbar puncture together with platelet transfusion Also patient Keppra dose increased per neurologist Was still pending family to call back. 04/18/2024 Patient today is more awake than last few days, she is up in bed drowsy groggy but she could tell me her name. She could tell me with whom she lives her [id number] Maggie which is something could not answer the last few days, however she still confused regarding place and time. She does not looks have full insight into her situation. But she follows command. There is no obvious asymmetry in movement of upper extremities, no overt abnormal movements. Sitter remains at bedside Creatinine normal 0.7 She remains on ceftriaxone and acyclovir She is on normal saline 75 mL/h Also she is on Keppra 1000 twice daily 04/19/2024 Patient showed significant improvement in her mentation over the last 2 days. Today she is even better. She is more awake alert and interactive. She is oriented to the surroundings. She looks somewhat calm but tired. No headache or dizziness no specific complaints. She has numbness in her right foot but this is chronic for many months as she explains. CSF examination was unremarkable for intracranial infection, acyclovir was discontinued, currently she is covered with Rocephin Blood pressure was stable therefore discontinue nitroglycerin topical She is currently kept on Keppra 1000 twice daily which I think once started at a higher dose patient showed significant improvement on the top patient when was at home she had froth in her mouth and she wet herself. Maggie her [id number]. Regardless patient is currently improving 04/20/2024 Patient is becoming more awake and more interactive She is calm she feels hungry Denies any pain or headache. She moves extremity symmetrically Currently she is on Rocephin and blood culture is negative so far Will ask for PT OT evaluation 04/21/24 Patient is still very weak She is awake and feels hungry. She denies specific symptoms She has some painful superficial ulcer in the left elbow with mild surrounding cellulitis. Elbow x-ray was obtained showing no fracture or acute process. Currently she is not on antibiotics and monitored closely Objective - Vital Signs Vital signs: Vital Signs Temp 98.7 F 04/20/24 20:32 Pulse 75 04/21/24 12:00 Resp 16 04/21/24 12:00 BP 92/62 04/21/24 12:00 Pulse Ox 100 04/21/24 12:00 FiO2 Intake & Output 04/20/24 04/21/24 04/21/24 18:59 06:59 18:59 Intake Total 595 220 680 Output Total 2175 375 Balance -1580 -155 680 Weight 63.503 kg Intake: Oral 595 220 680 Output: Urine 2175 375 Other: Voiding Method Indwelling Catheter Indwelling Catheter Indwelling Catheter - Exam -GENERAL: The patient is confused, does not respond to stimuli, agitated HEENT: Pupils are round and equally reacting to light. EOMI. No scleral icterus. No conjunctival pallor. Normocephalic, atraumatic. No pharyngeal erythema. No thyromegaly. CARDIOVASCULAR: S1 and S2 present. No murmurs, rubs, or gallops. PULMONARY: Chest is clear to auscultation, no wheezing , no crackles. -ABDOMEN: Soft, nontender, nondistended, normoactive bowel sounds. No palpable organomegaly. Thibodeaux catheter in place MUSCULOSKELETAL: No joint swelling or deformity. -EXTREMITIES: No cyanosis, clubbing, or pedal edema. Wound with no evidence of infection on the left lateral leg NEUROLOGICAL: Gross neurological examination did not reveal any focal deficits. SKIN: No rashes. no petechiae. - Labs CBC & Chem 7: 04/18/24 07:57 04/18/24 07:49 Labs: Abnormal Lab Results - Last 24 Hours (Table) 04/18/24 04/20/24 04/21/24 Range/Units 07:49 19:44 11:12 POC Glucose (mg/dL) 136 H 239 H (70-110) mg/dL Serum Albumin 3,340 L (3500 - 5200) mg/dL Microbiology - Last 24 Hours (Table) 04/18/24 16:00 Anaerobic Culture - Preliminary Cerebral Spinal Fluid Assessment and Plan Assessment: Altered mental status, could be metabolic/toxic encephalopathy associated with acute Delirium Alcohol use disorder, possible alcohol withdrawal delirium tremens Dehydration and acute kidney injury most likely prerenal Possible sepsis with high WBC, fever, UTI suspected, cellulitis of the left leg is felt less likely however cannot rule out other sources Seizure disorder on Kera Alcoholic liver cirrhosis Left leg wound History of GERD History of GI bleed Hepatitis C history of heroin abuse Plan: Continue with ceftriaxone Continue with normal saline 75 mL/h CIWA protocol and thiamine While patient cannot take oral will put the patient on clonidine 0.2 mg patch. Discontinue nitroglycerin topical Follow-up blood culture Cardiology and neurology consult Infectious disease consult on the case Labs and medication were reviewed.. Continue same treatment. Continue with symptomatic treatment. Resume home medication. Monitor labs and vitals. DVT and GI prophylaxis. Further recommendations as per clinical course of the patient DVT prophylaxis: Subcutaneous heparin GI Prophylaxis: Pepcid PT/OT: Pending Prognosis is guarded.
[2024-04-22 11:34] LABS: Glucose,Whole Blood 140 mg/dL (70-110)
--- NOTE | 2024-04-22 13:34 | MR ---
EXAMINATION TYPE: MR brain wo/w con DATE OF EXAM: 04/22/2024 1:06 PM CLINICAL INDICATION:Female, 53 years old with history of AMS; PHH, Altered mental status. COMPARISON: 04/14/2024. TECHNIQUE: Multi planar, multi sequence imaging was performed through the brain including: T1, T2, In version recovery, susceptibility weighted imaging and gradient echo imaging and Diffusion weighted im aging. The patient was then given intravenous contrast and multi planar, T1 fat-saturation images wer e obtained. IV Contrast: 6 cc Gadavist FINDINGS: The schumacher-white junctions, ventricular system, basal cisterns appear unremarkable. Diffusion-weighted imaging shows no evidence of restricted diffusion to suggest acute/subacute infarct. Intracranial ar terial flow voids are maintained. Midline structures show no abnormality. Minimal foci of high T2 sig nal intensity are seen within the periventricular white matter. The susceptibility weighted images do not reveal any evidence for micro-hemorrhage. After administration of gadolinium, no abnormal enhanc ement is seen. The bone marrow signal is within normal limits. Paranasal sinuses and mastoid air cells: Mild scattered paranasal sinus disease. Visualized orbits: Orbital contents are intact. IMPRESSION: 1. No evidence of intracranial mass, acute/subacute infarct, or abnormal enhancement. 2. Minimal white matter change.
--- NOTE | 2024-04-22 15:43 | P.PN ---
Subjective Progress Note Date: 04/21/24 Principal diagnosis: Reason for follow-up is Bacteremia Patient is a 53-year-old female with a past medical history significant for reflux seizure from alcoholism liver disease GI bleed bipolar depression current everyday smoker patient has been brought to the hospital for evaluation of altered mental status changes did have a low-grade fever positive UA and blood culture with gram-negative prompting this consultation. On today's evaluation that is 04/21/2024, patient has been afebrile, patient is breathing comfortably and is currently on room air, patient more awake and alert today and busy writing a letter to the authorities to question her stay in the hospital denies any chest pain or cough no abdominal pain or diarrhea No new lab has been obtained today Objective - Vital Signs Vital signs: Vital Signs Temp 98.7 F 04/20/24 20:32 Pulse 75 04/21/24 16:00 Resp 16 04/21/24 16:00 BP 93/60 04/21/24 16:00 Pulse Ox 97 04/21/24 16:00 FiO2 Intake & Output 04/20/24 04/21/24 04/21/24 18:59 06:59 18:59 Intake Total 354 320 6659 Output Total 2175 375 1700 Balance -1580 -155 240 Weight 63.503 kg Intake: Oral 386 381 8349 Output: Urine 2175 375 1700 Other: Voiding Method Indwelling Catheter Indwelling Catheter Indwelling Catheter - Exam GENERAL DESCRIPTION: Middle-aged female lying in bed in no distress RESPIRATORY SYSTEM: Unlabored breathing , decreased breath sounds at bases HEART: S1 S2 regular rate and rhythm , ABDOMEN: Soft , no tenderness EXTREMITIES: Feet have multiple lower extremity wound but no redness no slough tissue - Labs CBC & Chem 7: 04/18/24 07:57 04/18/24 07:49 Labs: Abnormal Lab Results - Last 24 Hours (Table) 04/18/24 04/20/24 04/21/24 Range/Units 07:49 19:44 11:12 POC Glucose (mg/dL) 136 H 239 H (70-110) mg/dL Serum Albumin 3,340 L (3500 - 5200) mg/dL Microbiology - Last 24 Hours (Table) 04/18/24 16:00 CSF Gram Stain - Preliminary Cerebral Spinal Fluid CSF Culture - Preliminary 04/16/24 11:42 Blood Culture - Final Blood 04/18/24 16:00 Anaerobic Culture - Preliminary Cerebral Spinal Fluid Assessment and Plan (1) Bacteremia Current Visit: Yes Status: Acute Priority: High Code(s): R78.81 - BACTEREMIA SNOMED Code(s): 4577215 (2) UTI (urinary tract infection) Current Visit: Yes Status: Acute Priority: High Code(s): N39.0 - URINARY TRACT INFECTION, SITE NOT SPECIFIED SNOMED Code(s): 13218900 Plan: 1patient with a positive blood culture with gram-negative bacilli more likely urinary source as the patient abdomen was soft on clinical examination patient did have a abdominal ultrasound and the gallbladder was within normal limit currently do not have any abdominal cellulitis and neck was supple on clinical lamination 2-positive blood culture with multiple pathogen including staph epi and Acetobacter with a question of possible contamination 3-blood culture has been repeated and so far negative 4-patient CSF findings are not suggestive of encephalitis or meningitis Acyclovir as well as Rocephin has been discontinued 5-bilateral lower extremity wound no cellulitis continue local wound care Dictation was produced using [employer] dictation software. please excuse any grammatical, word or spelling errors. Time with Patient: Less than 30
[2024-04-22 16:05] LABS: Glucose,Whole Blood 155 mg/dL (70-110)
--- NOTE | 2024-04-22 17:09 | P.PN ---
Progress Note - Text Progress Note Date: 04/22/24 The patient was under the care of Dr. Tatum. I went to see the patient but she was in MRI according to nurse. Will re-evaluate later.
[2024-04-22 20:18] LABS: Glucose,Whole Blood 115 mg/dL (70-110)
--- NOTE | 2024-04-22 22:46 | P.PN ---
Subjective Patient is a 53 years old female with past medical history of alcoholic liver cirrhosis, depression history of suicidal ideation, history of seizure disorder, GERD, GI bleed, hepatitis C, history of heroin abuse. Patient was brought from home for altered mental status, patient was found by EMS on her face down on the trash, with strong odor and unkempt. Patient currently is very confused does not follow commands and cannot provide information She is lying in bed looks agitated and moving her extremity continuously especially the lower extremity, does not looks like a seizure. Also we checked her meningeal signs and looks absent Patient cannot take her oral medication and she was found hypertensive and tachycardic in the emergency room, propranolol on hold because of patient cannot take oral medication. IV Lopressor, clonidine patch and nitroglycerin patches provided also to help her with the blood pressure and heart rate. She is mildly tachypneic, she has low-grade temperature 99.9. WBC is slightly elevated at 13,000 hemoglobin 17, sample looks hemoconcentrated and expected to go down with fluid. Baseline WBC is 5-8000, and basal hemoglobin 11-15 Creatinine is mildly elevated 1.3. Lactic acid was significantly elevated 6.9 came down with IV fluid 2.5 Creatinine 1.3 with baseline 0.9-1.0, EKG showing sinus tachycardia at [address]-T changes Chest x-ray showing chronic changes CT of the facial with no facial bone fracture CT of the head and neck is negative for acute process Ammonia level was 10 which is low Troponin is elevated 1.5-1.6 and looks steady. ABG showed normal pH 7.35 and pCO2 41 Serum alcohol and urine drug screen are requested and they are elevated Patient was started on ceftriaxone, CIWA protocol and thiamine Also started on her home dose of IV Keppra. Also patient has wound on her left leg about 2 to 3 inches in diameter with no active bleeding 04/15/2024 Patient still confused, she still agitated moving her legs bilaterally. She is nonverbal, does not open eyes spontaneously or to verbal or tactile stimuli However her abdomen looks soft with no evidence of tenderness or guarding, no right upper quadrant tenderness. No suprapubic or flank tenderness Patient saturating well on 2 L oxygen via nasal cannula Sitter at bedside Thibodeaux catheter in place Vitals are stable, blood pressure is slightly elevated. No more fever since admission. WBC trending down to 11.3, hemoglobin improved 14.1, creatinine back to reference range at 0.8. Lactic acid improved 92.0 which is the reference. Liver enzymes still mildly elevated and abdominal ultrasound reviewed by myself showing cirrhosis and splenomegaly with evidence of portal hypertension Bilirubin and liver enzymes mildly elevated. Patient remains on ceftriaxone, urine and blood cultures are pending. Patient with high CIWA score ranging between 12, 13 and 7. Neurologist evaluated the patient and EEG pending 04/16/2024 Patient remains confused, does not open eyes to verbal or tactile stimuli. She is less agitated than since admission however she can move both extremities symmetrically. There is no neck stiffness on admission or today. She has systolic murmur, I discussed the case with cardiology team will going to order echocardiogram for now however suspicion for SBE is low for now. She has a positive blood culture but looks like contamination. Repeat blood culture is requested Urine culture still pending Patient remains on ceftriaxone and gentle hydration. Blood pressure controlled Urine drug screen is negative on admission as well as serum alcohol. Abdominal ultrasound showing cirrhosis with splenomegaly. Ammonia level was low we will going to recheck ammonia level again EEG pending for possible seizure but there is no seizure-like activity at bedside We are going to discuss the case further with ID and neurology team for plan of care 04/17/2024 Patient mentation remains severely impaired, per staff she woke up for short time yesterday around 10 PM and she was oriented x 1 but overnight and this morning she is confused like before. She is not responding to verbal or tactile stimuli. No abnormal movements. No seizure-like activities. She remains on broad-spectrum antibiotic I discussed the case with hematology team they recommend to do lumbar puncture together with platelet transfusion Also patient Keppra dose increased per neurologist Was still pending family to call back. 04/18/2024 Patient today is more awake than last few days, she is up in bed drowsy groggy but she could tell me her name. She could tell me with whom she lives her [id number] Maggie which is something could not answer the last few days, however she still confused regarding place and time. She does not looks have full insight into her situation. But she follows command. There is no obvious asymmetry in movement of upper extremities, no overt abnormal movements. Sitter remains at bedside Creatinine normal 0.7 She remains on ceftriaxone and acyclovir She is on normal saline 75 mL/h Also she is on Keppra 1000 twice daily 04/19/2024 Patient showed significant improvement in her mentation over the last 2 days. Today she is even better. She is more awake alert and interactive. She is oriented to the surroundings. She looks somewhat calm but tired. No headache or dizziness no specific complaints. She has numbness in her right foot but this is chronic for many months as she explains. CSF examination was unremarkable for intracranial infection, acyclovir was discontinued, currently she is covered with Rocephin Blood pressure was stable therefore discontinue nitroglycerin topical She is currently kept on Keppra 1000 twice daily which I think once started at a higher dose patient showed significant improvement on the top patient when was at home she had froth in her mouth and she wet herself. Maggie her [id number]. Regardless patient is currently improving 04/20/2024 Patient is becoming more awake and more interactive She is calm she feels hungry Denies any pain or headache. She moves extremity symmetrically Currently she is on Rocephin and blood culture is negative so far Will ask for PT OT evaluation 04/21/24 Patient is still very weak She is awake and feels hungry. She denies specific symptoms She has some painful superficial ulcer in the left elbow with mild surrounding cellulitis. Elbow x-ray was obtained showing no fracture or acute process. Currently she is not on antibiotics and monitored closely 04/22/24 Patient awake but still not very interactive although she answers questions appropriately but is slowly. She moves all extremities symmetrically. She tolerates diet well We will discontinue Thibodeaux catheter and ask for PT OT evaluation recommended home health care versus subacute rehab Neurology following pending MRI and EEG of the brain Objective - Vital Signs Vital signs: Vital Signs Temp 97.3 F L 04/22/24 19:41 Pulse 73 04/22/24 19:41 Resp 14 04/22/24 19:41 BP 94/54 04/22/24 19:41 Pulse Ox 98 04/22/24 19:41 FiO2 Intake & Output 04/22/24 04/22/24 04/23/24 06:59 18:59 06:59 Output Total 375 1200 Balance -375 -1200 Output: Urine 375 1200 Other: Voiding Method Indwelling Catheter Indwelling Catheter # Bowel Movements 1 - Exam -GENERAL: The patient is confused, does not respond to stimuli, agitated HEENT: Pupils are round and equally reacting to light. EOMI. No scleral icterus. No conjunctival pallor. Normocephalic, atraumatic. No pharyngeal erythema. No thyromegaly. CARDIOVASCULAR: S1 and S2 present. No murmurs, rubs, or gallops. PULMONARY: Chest is clear to auscultation, no wheezing , no crackles. -ABDOMEN: Soft, nontender, nondistended, normoactive bowel sounds. No palpable organomegaly. Thibodeaux catheter in place MUSCULOSKELETAL: No joint swelling or deformity. -EXTREMITIES: No cyanosis, clubbing, or pedal edema. Wound with no evidence of infection on the left lateral leg NEUROLOGICAL: Gross neurological examination did not reveal any focal deficits. SKIN: No rashes. no petechiae. - Labs CBC & Chem 7: 04/18/24 07:57 04/18/24 07:49 Labs: Abnormal Lab Results - Last 24 Hours (Table) 04/22/24 04/22/24 04/22/24 Range/Units 11:33 16:04 20:15 POC Glucose (mg/dL) 140 H 155 H 115 H (70-110) mg/dL Microbiology - Last 24 Hours (Table) 04/18/24 16:00 Anaerobic Culture - Final Cerebral Spinal Fluid 04/18/24 16:00 CSF Gram Stain - Final Cerebral Spinal Fluid CSF Culture - Final Assessment and Plan Assessment: Altered mental status, could be metabolic/toxic encephalopathy associated with acute Delirium , improved Alcohol use disorder, possible alcohol withdrawal delirium tremens, improved Dehydration and acute kidney injury most likely prerenal Possible sepsis with high WBC, fever, UTI suspected, cellulitis of the left leg is felt less likely however cannot rule out other sources, improved currently off antibiotics Seizure disorder on Keppra Alcoholic liver cirrhosis Left leg wound History of GERD History of GI bleed Hepatitis C history of heroin abuse Plan: Currently off antibiotics Continue with normal saline 75 mL/h CIWA protocol and thiamine While patient cannot take oral will put the patient on clonidine 0.2 mg patch. Discontinue nitroglycerin topical Cardiology and neurology consult Infectious disease consult on the case Labs and medication were reviewed.. Continue same treatment. Continue with symptomatic treatment. Resume home medication. Monitor labs and vitals. DVT and GI prophylaxis. Further recommendations as per clinical course of the patient DVT prophylaxis: Subcutaneous heparin GI Prophylaxis: Pepcid PT/OT: Pending Prognosis is guarded.
[2024-04-23 05:49] LABS: Glucose,Whole Blood 152 mg/dL (70-110)
[2024-04-23 11:20] LABS: Glucose,Whole Blood 150 mg/dL (70-110)
[2024-04-23] MEDS ORDERED: LORazepam 0.5 MG TAB PO PRN (14:18)
[2024-04-23] MEDS ORDERED: LORazepam 1 MG TAB PO PRN (14:18)
--- NOTE | 2024-04-23 14:28 | P.PN ---
Subjective Patient is a 53 years old female with past medical history of alcoholic liver cirrhosis, depression history of suicidal ideation, history of seizure disorder, GERD, GI bleed, hepatitis C, history of heroin abuse. Patient was brought from home for altered mental status, patient was found by EMS on her face down on the trash, with strong odor and unkempt. Patient currently is very confused does not follow commands and cannot provide information She is lying in bed looks agitated and moving her extremity continuously especially the lower extremity, does not looks like a seizure. Also we checked her meningeal signs and looks absent Patient cannot take her oral medication and she was found hypertensive and tachycardic in the emergency room, propranolol on hold because of patient cannot take oral medication. IV Lopressor, clonidine patch and nitroglycerin patches provided also to help her with the blood pressure and heart rate. She is mildly tachypneic, she has low-grade temperature 99.9. WBC is slightly elevated at 13,000 hemoglobin 17, sample looks hemoconcentrated and expected to go down with fluid. Baseline WBC is 5-8000, and basal hemoglobin 11-15 Creatinine is mildly elevated 1.3. Lactic acid was significantly elevated 6.9 came down with IV fluid 2.5 Creatinine 1.3 with baseline 0.9-1.0, EKG showing sinus tachycardia at [address]-T changes Chest x-ray showing chronic changes CT of the facial with no facial bone fracture CT of the head and neck is negative for acute process Ammonia level was 10 which is low Troponin is elevated 1.5-1.6 and looks steady. ABG showed normal pH 7.35 and pCO2 41 Serum alcohol and urine drug screen are requested and they are elevated Patient was started on ceftriaxone, CIWA protocol and thiamine Also started on her home dose of IV Keppra. Also patient has wound on her left leg about 2 to 3 inches in diameter with no active bleeding 04/15/2024 Patient still confused, she still agitated moving her legs bilaterally. She is nonverbal, does not open eyes spontaneously or to verbal or tactile stimuli However her abdomen looks soft with no evidence of tenderness or guarding, no right upper quadrant tenderness. No suprapubic or flank tenderness Patient saturating well on 2 L oxygen via nasal cannula Sitter at bedside Thibodeaux catheter in place Vitals are stable, blood pressure is slightly elevated. No more fever since admission. WBC trending down to 11.3, hemoglobin improved 14.1, creatinine back to reference range at 0.8. Lactic acid improved 92.0 which is the reference. Liver enzymes still mildly elevated and abdominal ultrasound reviewed by myself showing cirrhosis and splenomegaly with evidence of portal hypertension Bilirubin and liver enzymes mildly elevated. Patient remains on ceftriaxone, urine and blood cultures are pending. Patient with high CIWA score ranging between 12, 13 and 7. Neurologist evaluated the patient and EEG pending 04/16/2024 Patient remains confused, does not open eyes to verbal or tactile stimuli. She is less agitated than since admission however she can move both extremities symmetrically. There is no neck stiffness on admission or today. She has systolic murmur, I discussed the case with cardiology team will going to order echocardiogram for now however suspicion for SBE is low for now. She has a positive blood culture but looks like contamination. Repeat blood culture is requested Urine culture still pending Patient remains on ceftriaxone and gentle hydration. Blood pressure controlled Urine drug screen is negative on admission as well as serum alcohol. Abdominal ultrasound showing cirrhosis with splenomegaly. Ammonia level was low we will going to recheck ammonia level again EEG pending for possible seizure but there is no seizure-like activity at bedside We are going to discuss the case further with ID and neurology team for plan of care 04/17/2024 Patient mentation remains severely impaired, per staff she woke up for short time yesterday around 10 PM and she was oriented x 1 but overnight and this morning she is confused like before. She is not responding to verbal or tactile stimuli. No abnormal movements. No seizure-like activities. She remains on broad-spectrum antibiotic I discussed the case with hematology team they recommend to do lumbar puncture together with platelet transfusion Also patient Keppra dose increased per neurologist Was still pending family to call back. 04/18/2024 Patient today is more awake than last few days, she is up in bed drowsy groggy but she could tell me her name. She could tell me with whom she lives her [id number] Maggie which is something could not answer the last few days, however she still confused regarding place and time. She does not looks have full insight into her situation. But she follows command. There is no obvious asymmetry in movement of upper extremities, no overt abnormal movements. Sitter remains at bedside Creatinine normal 0.7 She remains on ceftriaxone and acyclovir She is on normal saline 75 mL/h Also she is on Keppra 1000 twice daily 04/19/2024 Patient showed significant improvement in her mentation over the last 2 days. Today she is even better. She is more awake alert and interactive. She is oriented to the surroundings. She looks somewhat calm but tired. No headache or dizziness no specific complaints. She has numbness in her right foot but this is chronic for many months as she explains. CSF examination was unremarkable for intracranial infection, acyclovir was discontinued, currently she is covered with Rocephin Blood pressure was stable therefore discontinue nitroglycerin topical She is currently kept on Keppra 1000 twice daily which I think once started at a higher dose patient showed significant improvement on the top patient when was at home she had froth in her mouth and she wet herself. Maggie her [id number]. Regardless patient is currently improving 04/20/2024 Patient is becoming more awake and more interactive She is calm she feels hungry Denies any pain or headache. She moves extremity symmetrically Currently she is on Rocephin and blood culture is negative so far Will ask for PT OT evaluation 04/21/24 Patient is still very weak She is awake and feels hungry. She denies specific symptoms She has some painful superficial ulcer in the left elbow with mild surrounding cellulitis. Elbow x-ray was obtained showing no fracture or acute process. Currently she is not on antibiotics and monitored closely 04/22/24 Patient awake but still not very interactive although she answers questions appropriately but is slowly. She moves all extremities symmetrically. She tolerates diet well We will discontinue Thibodeaux catheter and ask for PT OT evaluation recommended home health care versus subacute rehab Neurology following pending MRI and EEG of the brain 04/23/24 Patient is drowsy every day very sleepy and once we wake her up and she answer the question she go back to sleep Actually she is on multiple medications that can cause drowsiness like BuSpar 15 mg which we lowered today to 10 mg, Thorazine and other psych medication until today she is still getting Ativan as part of her CIWA she got 1 mg IV therefore we are going to discontinue the CIWA Ativan protocol as patient has been 9 days of hospitalization we will keep monitoring closely to PT OT recommended subacute rehab, patient declined and she wants to go home, home care cannot be provided for her as she has no PCP patient informed and she agrees. MRI of the brain is negative for acute mass or infarct Objective - Vital Signs Vital signs: Vital Signs Temp 98.0 F 04/23/24 07:53 Pulse 73 04/23/24 07:53 Resp 18 04/23/24 07:53 BP 135/69 04/23/24 07:53 Pulse Ox 99 04/23/24 07:53 FiO2 Intake & Output 04/22/24 04/23/24 04/23/24 18:59 06:59 18:59 Intake Total 128 Output Total 1200 200 Balance -1200 -200 128 Weight 63.1 kg Intake: IV 10 Invasive Line 4 10 Oral 118 Output: Urine 1200 200 Other: Voiding Method Indwelling Catheter Indwelling Catheter Bedside Commode # Voids 1 2 # Bowel Movements 1 - Exam -GENERAL: The patient is confused, does not respond to stimuli, agitated HEENT: Pupils are round and equally reacting to light. EOMI. No scleral icterus. No conjunctival pallor. Normocephalic, atraumatic. No pharyngeal erythema. No thyromegaly. CARDIOVASCULAR: S1 and S2 present. No murmurs, rubs, or gallops. PULMONARY: Chest is clear to auscultation, no wheezing , no crackles. -ABDOMEN: Soft, nontender, nondistended, normoactive bowel sounds. No palpable organomegaly. Thibodeaux catheter in place MUSCULOSKELETAL: No joint swelling or deformity. -EXTREMITIES: No cyanosis, clubbing, or pedal edema. Wound with no evidence of infection on the left lateral leg NEUROLOGICAL: Gross neurological examination did not reveal any focal deficits. SKIN: No rashes. no petechiae. - Labs CBC & Chem 7: 04/18/24 07:57 04/18/24 07:49 Labs: Abnormal Lab Results - Last 24 Hours (Table) 04/22/24 04/22/24 04/22/24 Range/Units 11:33 16:04 20:15 POC Glucose (mg/dL) 140 H 155 H 115 H (70-110) mg/dL 04/23/24 04/23/24 Range/Units 05:43 11:18 POC Glucose (mg/dL) 152 H 150 H (70-110) mg/dL Microbiology - Last 24 Hours (Table) 04/18/24 16:00 Anaerobic Culture - Final Cerebral Spinal Fluid 04/18/24 16:00 CSF Gram Stain - Final Cerebral Spinal Fluid CSF Culture - Final Assessment and Plan Assessment: Altered mental status, could be metabolic/toxic encephalopathy associated with acute Delirium , improved Alcohol use disorder, possible alcohol withdrawal delirium tremens, improved Dehydration and acute kidney injury most likely prerenal Possible sepsis with high WBC, fever, UTI suspected, cellulitis of the left leg is felt less likely however cannot rule out other sources, improved currently off antibiotics Seizure disorder on Keppra Alcoholic liver cirrhosis Left leg wound History of GERD History of GI bleed Hepatitis C history of heroin abuse Plan: Currently off antibiotics Try to limit sedative, lower the dose of BuSpar to 10 mg. Discontinue Ativan as part of CIWA on thiamine on clonidine 0.2 mg patch. Cardiology and neurology consult Infectious disease consult on the case, patient currently is off antibiotic Labs and medication were reviewed.. Continue same treatment. Continue with symptomatic treatment. Resume home medication. Monitor labs and vitals. DVT and GI prophylaxis. Further recommendations as per clinical course of the patient DVT prophylaxis: Subcutaneous heparin GI Prophylaxis: Pepcid PT/OT: Jeannette GOVEA, patient declined. Patient also has no PCP for HHC. Most likely patient will go back to her home under the care of her mother Ms. Serrano Prognosis is guarded. Possible discharge in 24 to 48 hours
[2024-04-23 14:44] VITALS: BMI 22.4
[2024-04-23 16:32] LABS: Glucose,Whole Blood 151 mg/dL (70-110)
--- NOTE | 2024-04-23 16:50 | P.PN ---
Subjective Progress Note Date: 04/22/24 Principal diagnosis: Reason for follow-up is Bacteremia Patient is a 53-year-old female with a past medical history significant for reflux seizure from alcoholism liver disease GI bleed bipolar depression current everyday smoker patient has been brought to the hospital for evaluation of altered mental status changes did have a low-grade fever positive UA and blood culture with gram-negative prompting this consultation. On today's evaluation that is 04/22/2024, Patient continues to be afebrile patient is breathing comfortably on room air denies any chest pain or cough, no vomiting or diarrhea has been reported by the sitter at the bedside No new labs Objective - Vital Signs Vital signs: Vital Signs Temp 98.3 F 04/21/24 21:30 Pulse 58 L 04/22/24 14:00 Resp 16 04/22/24 14:00 BP 96/55 04/22/24 12:00 Pulse Ox 98 04/22/24 12:00 FiO2 Intake & Output 04/21/24 04/22/24 04/22/24 18:59 06:59 18:59 Intake Total 1940 Output Total 6893 217 8469 Balance 240 -375 -1200 Weight 63.503 kg Intake: Oral 1940 Output: Urine 6164 [id number] [id number] Other: Voiding Method Indwelling Catheter Indwelling Catheter Indwelling Catheter # Bowel Movements 1 - Exam GENERAL DESCRIPTION: Middle-aged female lying in bed in no distress RESPIRATORY SYSTEM: Unlabored breathing , decreased breath sounds at bases HEART: S1 S2 regular rate and rhythm , ABDOMEN: Soft , no tenderness EXTREMITIES: Bilateral lower extremity ankle area wounds are currently dressed - Labs CBC & Chem 7: 04/18/24 07:57 04/18/24 07:49 Labs: Abnormal Lab Results - Last 24 Hours (Table) 04/21/24 04/22/24 Range/Units 20:14 11:33 POC Glucose (mg/dL) 111 H 140 H (70-110) mg/dL Microbiology - Last 24 Hours (Table) 04/18/24 16:00 CSF Gram Stain - Preliminary Cerebral Spinal Fluid CSF Culture - Preliminary 04/16/24 11:42 Blood Culture - Final Blood Assessment and Plan (1) Bacteremia Current Visit: Yes Status: Acute Priority: High Code(s): R78.81 - BACTEREMIA SNOMED Code(s): 5829075 (2) UTI (urinary tract infection) Current Visit: Yes Status: Acute Priority: High Code(s): N39.0 - URINARY TRACT INFECTION, SITE NOT SPECIFIED SNOMED Code(s): 76935788 Plan: 1patient with a positive blood culture with gram-negative bacilli more likely urinary source as the patient abdomen was soft on clinical examination patient did have a abdominal ultrasound and the gallbladder was within normal limit currently do not have any abdominal cellulitis and neck was supple on clinical lamination 2-positive blood culture with multiple pathogen including staph epi and [place] cter with a question of possible contamination 3-blood culture has been repeated and so far negative 4-patient CSF findings are not suggestive of encephalitis or meningitis Acyclovir and Rocephin has been discontinued monitor the patient closely off antibiotic 5-bilateral lower extremity wound no cellulitis continue local wound care and keep the area of the pressure Dictation was produced using [employer] dictation software. please excuse any grammatical, word or spelling errors.
--- NOTE | 2024-04-23 16:51 | P.PN ---
Subjective Progress Note Date: 04/23/24 Principal diagnosis: Reason for follow-up is Bacteremia Patient is a 53-year-old female with a past medical history significant for reflux seizure from alcoholism liver disease GI bleed bipolar depression current everyday smoker patient has been brought to the hospital for evaluation of altered mental status changes did have a low-grade fever positive UA and blood culture with gram-negative prompting this consultation. On today's evaluation that is 04/23/2024,the patient is more awake and alert today patient denies having any fever or any chills she is breathing comfortable on room air no chest pain or cough no abdominal pain no diarrhea Patient did have a blood draw today Objective - Vital Signs Vital signs: Vital Signs Temp 97.8 F 04/23/24 11:49 Pulse 69 04/23/24 11:49 Resp 20 04/23/24 11:49 BP 110/63 04/23/24 11:49 Pulse Ox 100 04/23/24 11:49 FiO2 Intake & Output 04/22/24 04/23/24 04/23/24 18:59 06:59 18:59 Intake Total 484 Output Total 1200 200 Balance -1200 -200 484 Weight 63.1 kg 63.1 kg Intake: IV 10 Invasive Line 4 10 Oral 474 Output: Urine 1200 200 Other: Voiding Method Indwelling Catheter Indwelling Catheter Bedside Commode # Voids 1 2 # Bowel Movements 1 - Exam GENERAL DESCRIPTION: Middle-aged female lying in bed in no distress RESPIRATORY SYSTEM: Unlabored breathing , decreased breath sounds at bases HEART: S1 S2 regular rate and rhythm , ABDOMEN: Soft , no tenderness EXTREMITIES: Bilateral lower extremity ankle area wounds are currently dressed - Labs CBC & Chem 7: 04/18/24 07:57 04/18/24 07:49 Labs: Abnormal Lab Results - Last 24 Hours (Table) 04/22/24 04/23/24 04/23/24 Range/Units 20:15 05:43 11:18 POC Glucose (mg/dL) 115 H 152 H 150 H (70-110) mg/dL 04/23/24 Range/Units 16:30 POC Glucose (mg/dL) 151 H (70-110) mg/dL Microbiology - Last 24 Hours (Table) 04/18/24 16:00 Anaerobic Culture - Final Cerebral Spinal Fluid 04/18/24 16:00 CSF Gram Stain - Final Cerebral Spinal Fluid CSF Culture - Final Assessment and Plan (1) Bacteremia Current Visit: Yes Status: Acute Priority: High Code(s): R78.81 - BACTEREMIA SNOMED Code(s): 0867290 (2) UTI (urinary tract infection) Current Visit: Yes Status: Acute Priority: High Code(s): N39.0 - URINARY TRACT INFECTION, SITE NOT SPECIFIED SNOMED Code(s): 91070593 Plan: 1patient with a positive blood culture with gram-negative bacilli more likely urinary source as the patient abdomen was soft on clinical examination patient did have a abdominal ultrasound and the gallbladder was within normal limit currently do not have any abdominal cellulitis and neck was supple on clinical lamination 2-positive blood culture with multiple pathogen including staph epi and Acetobacter with a question of possible contamination 3-blood culture has been repeated and so far negative 4-patient CSF findings are not suggestive of encephalitis or meningitis Acyclovir and Rocephin has been discontinued 5-bilateral lower extremity wound no cellulitis continue local wound care and keep the area of the pressure and will monitor closely off antibiotic therapy Dictation was produced using [employer] dictation software. please excuse any grammatical, word or spelling errors. Time with Patient: Less than 30
--- NOTE | 2024-04-23 19:19 | P.PN ---
Subjective Progress Note Date: 04/23/24 I am seeing the patient for the first tie during this admission. Please refer to Dr. Tatum's notes for further details. The patient has altered mental status and it was felt the patient has metabolic encephalopathy. She has history of alcohol use. Patient has bacteremia Had CSF study and was clear, colorless, nucleated cells is 1 total protein is about 63. CSF culture is no growth. Patient had MRI of the brain which was negative for any acute or subacute stroke. Patient overall feels she is doing better Objective - Vital Signs Vital signs: Vital Signs Temp 98.1 F 04/23/24 16:00 Pulse 83 04/23/24 16:00 Resp 16 04/23/24 16:00 BP 97/61 04/23/24 16:00 Pulse Ox 100 04/23/24 16:00 FiO2 Intake & Output 04/23/24 04/23/24 04/24/24 06:59 18:59 06:59 Intake Total 724 Output Total 200 Balance -200 724 Weight 63.1 kg 63.1 kg Intake: IV 10 Invasive Line 4 10 Oral 714 Output: Urine 200 Other: Voiding Method Indwelling Catheter Bedside Commode # Voids 1 3 # Bowel Movements 1 2 - Exam General: Lying in bed and is not in acute distress. Neuro: Patient is awake alert oriented to self and correctly stated she is in the hospital. She stated that the month is March but upon correcting her she stated yes it is April and it is the beginning of April. She correctly stated the current year. She is following simple commands. No aphasia Pupils are round equal reactive to light. Visual romeo are full to confrontation. Extraocular movements intact no nystagmus. She has mild right facial droop and is symmetrical to smile. No dysarthria Motor is lifting uppers and lowers extremities above gravity and appears symmetrical - Labs CBC & Chem 7: 04/18/24 07:57 04/18/24 07:49 Labs: Abnormal Lab Results - Last 24 Hours (Table) 04/22/24 04/23/24 04/23/24 Range/Units 20:15 05:43 11:18 POC Glucose (mg/dL) 115 H 152 H 150 H (70-110) mg/dL 04/23/24 Range/Units 16:30 POC Glucose (mg/dL) 151 H (70-110) mg/dL Microbiology - Last 24 Hours (Table) 04/18/24 16:00 Anaerobic Culture - Final Cerebral Spinal Fluid 04/18/24 16:00 CSF Gram Stain - Final Cerebral Spinal Fluid CSF Culture - Final Assessment and Plan Assessment: * Altered mental status, likely due to metabolic encephalopathy and bactermia. Reasons multifactorial as mentioned below. Encephalitis/meningitis ruled out. MRI Brain is negative for acute/subacute process. * History of alcoholism, rule out TEDs. Patient completely denies any alcohol consumption since last admission in June 2023. * Bacteremia, and ID feels urinary source. * Elevated cardiac enzymes, cardiology on board * Elevated liver enzymes, improved * Lactic acidosis * Mild renal insufficiency, resolved * Rhabdomyolysis * Possible UTI * Thrombocytopenia Plan: * Repeat EEG 04/17/2024 was abnormal due to background slowing of moderate to severe degree. This is suggestive of generalized cerebral dysfunction. No epileptiform activity was seen. When compared to the EEG from 04/16/2024, the background has improved as well as triphasic waves are less frequent. * Initial EEG 04/16/2024 was significantly abnormal due to presence of disorganized background with slowing, suggestive of moderate to severe encephalopathy. Some intermittent sleep was also seen during the study. There were presence of frequent triphasic waves, which at times become more r hythmic at 1 Hz which may suggest underlying cortical irritability and may suggest tendency for seizures. No electrolyte and seizure however was recorded. Suggest prolonged EEG, if clinically indicated. * On Keppra to 1000 mg twice a day per Dr. Tatum (increased on 04/17/2024). * Continue seizure precautions and seizure pads to prevent injuries. Sitter is present. * Patient has positive blood cultures. Infectious disease on board and feels source is urinary. * CSF was colorless and clear. CSF WBC count 1, RBC 1, CSF glucose 62, CSF protein 63/60. Viral panel negative including HSV-1 and HSV 2 PCR. MS panel pending. * HIV testing is non reactive. * MRI of the brain with and without contrast: There is no evidence of intracranial mass, acute/subacute infarct or abnormal enhancement. Minimal white matter changes. * I will get repeat CK level. * Ammonia level is normal 10. On lactulose * Patient has elevated cardiac enzymes, cardiology on board. * Continue CIWA protocol. * Other medical management as per IM. Will continue to follow-up with patient sporadically. Time with Patient: Less than 30
[2024-04-23 20:13] LABS: Glucose,Whole Blood 123 mg/dL (70-110)
[2024-04-23] MEDS: busPIRone HCl 5 MG TAB PO SCH (21:11)
[2024-04-23] MEDS: hydrOXYzine HCL 25 MG TAB PO PRN (21:36)
[2024-04-24 04:14] VITALS: RESP 16
[2024-04-24 05:56] LABS: Glucose,Whole Blood 105 mg/dL (70-110)
[2024-04-24 11:11] LABS: Anisocytosis Slight; HGB 11.4 gm/dL (11.4-16.0); MCH 33.4 pg (25.0-35.0); MCHC 35.8 g/dL (31.0-37.0); MCV 93.4 fL (80.0-100.0); Macrocytosis Slight; Mean Platelet Volume 8.9; Poikilocytosis Slight; RBC 3.43 m/uL (3.80-5.40); RDW 17.8 % (11.5-15.5); WBC 3.4 k/uL (3.8-10.6)
[2024-04-24 11:12] LABS: Platelet Count 126 k/uL (150-450)
[2024-04-24 11:16] LABS: ALT 25 U/L (4-34); AST 58 U/L (14-36); African American GFR (CKD) 45 (>60 ml/min/1.73 sqM); Albumin 3.5 g/dL (3.5-5.0); Alkaline Phosphatase 124 U/L (38-126); Anion Gap 9 mmol/L; Blood Urea Nitrogen 21 mg/dL (7-17); Calcium 9.1 mg/dL (8.4-10.2); Carbon Dioxide 22 mmol/L (22-30); Chloride 108 mmol/L (98-107); Glucose 111 mg/dL (74-99); Non-African American GFR(CKD) 39 (>60 ml/min/1.73 sqM); Potassium 4.7 mmol/L (3.5-5.1); Sodium 139 mmol/L (137-145); Total Protein 6.2 g/dL (6.3-8.2)
[2024-04-24 11:37] LABS: Glucose,Whole Blood 139 mg/dL (70-110)
--- NOTE | 2024-04-24 11:55 | P.PN ---
Subjective Patient is a 53 years old female with past medical history of alcoholic liver cirrhosis, depression history of suicidal ideation, history of seizure disorder, GERD, GI bleed, hepatitis C, history of heroin abuse. Patient was brought from home for altered mental status, patient was found by EMS on her face down on the trash, with strong odor and unkempt. Patient currently is very confused does not follow commands and cannot provide information She is lying in bed looks agitated and moving her extremity continuously especially the lower extremity, does not looks like a seizure. Also we checked her meningeal signs and looks absent Patient cannot take her oral medication and she was found hypertensive and tachycardic in the emergency room, propranolol on hold because of patient cannot take oral medication. IV Lopressor, clonidine patch and nitroglycerin patches provided also to help her with the blood pressure and heart rate. She is mildly tachypneic, she has low-grade temperature 99.9. WBC is slightly elevated at 13,000 hemoglobin 17, sample looks hemoconcentrated and expected to go down with fluid. Baseline WBC is 5-8000, and basal hemoglobin 11-15 Creatinine is mildly elevated 1.3. Lactic acid was significantly elevated 6.9 came down with IV fluid 2.5 Creatinine 1.3 with baseline 0.9-1.0, EKG showing sinus tachycardia at [address]-T changes Chest x-ray showing chronic changes CT of the facial with no facial bone fracture CT of the head and neck is negative for acute process Ammonia level was 10 which is low Troponin is elevated 1.5-1.6 and looks steady. ABG showed normal pH 7.35 and pCO2 41 Serum alcohol and urine drug screen are requested and they are elevated Patient was started on ceftriaxone, CIWA protocol and thiamine Also started on her home dose of IV Keppra. Also patient has wound on her left leg about 2 to 3 inches in diameter with no active bleeding 04/15/2024 Patient still confused, she still agitated moving her legs bilaterally. She is nonverbal, does not open eyes spontaneously or to verbal or tactile stimuli However her abdomen looks soft with no evidence of tenderness or guarding, no right upper quadrant tenderness. No suprapubic or flank tenderness Patient saturating well on 2 L oxygen via nasal cannula Sitter at bedside Thibodeaux catheter in place Vitals are stable, blood pressure is slightly elevated. No more fever since admission. WBC trending down to 11.3, hemoglobin improved 14.1, creatinine back to reference range at 0.8. Lactic acid improved 92.0 which is the reference. Liver enzymes still mildly elevated and abdominal ultrasound reviewed by myself showing cirrhosis and splenomegaly with evidence of portal hypertension Bilirubin and liver enzymes mildly elevated. Patient remains on ceftriaxone, urine and blood cultures are pending. Patient with high CIWA score ranging between 12, 13 and 7. Neurologist evaluated the patient and EEG pending 04/16/2024 Patient remains confused, does not open eyes to verbal or tactile stimuli. She is less agitated than since admission however she can move both extremities symmetrically. There is no neck stiffness on admission or today. She has systolic murmur, I discussed the case with cardiology team will going to order echocardiogram for now however suspicion for SBE is low for now. She has a positive blood culture but looks like contamination. Repeat blood culture is requested Urine culture still pending Patient remains on ceftriaxone and gentle hydration. Blood pressure controlled Urine drug screen is negative on admission as well as serum alcohol. Abdominal ultrasound showing cirrhosis with splenomegaly. Ammonia level was low we will going to recheck ammonia level again EEG pending for possible seizure but there is no seizure-like activity at bedside We are going to discuss the case further with ID and neurology team for plan of care 04/17/2024 Patient mentation remains severely impaired, per staff she woke up for short time yesterday around 10 PM and she was oriented x 1 but overnight and this morning she is confused like before. She is not responding to verbal or tactile stimuli. No abnormal movements. No seizure-like activities. She remains on broad-spectrum antibiotic I discussed the case with hematology team they recommend to do lumbar puncture together with platelet transfusion Also patient Keppra dose increased per neurologist Was still pending family to call back. 04/18/2024 Patient today is more awake than last few days, she is up in bed drowsy groggy but she could tell me her name. She could tell me with whom she lives her [id number] Maggie which is something could not answer the last few days, however she still confused regarding place and time. She does not looks have full insight into her situation. But she follows command. There is no obvious asymmetry in movement of upper extremities, no overt abnormal movements. Sitter remains at bedside Creatinine normal 0.7 She remains on ceftriaxone and acyclovir She is on normal saline 75 mL/h Also she is on Keppra 1000 twice daily 04/19/2024 Patient showed significant improvement in her mentation over the last 2 days. Today she is even better. She is more awake alert and interactive. She is oriented to the surroundings. She looks somewhat calm but tired. No headache or dizziness no specific complaints. She has numbness in her right foot but this is chronic for many months as she explains. CSF examination was unremarkable for intracranial infection, acyclovir was discontinued, currently she is covered with Rocephin Blood pressure was stable therefore discontinue nitroglycerin topical She is currently kept on Keppra 1000 twice daily which I think once started at a higher dose patient showed significant improvement on the top patient when was at home she had froth in her mouth and she wet herself. Maggie her [id number]. Regardless patient is currently improving 04/20/2024 Patient is becoming more awake and more interactive She is calm she feels hungry Denies any pain or headache. She moves extremity symmetrically Currently she is on Rocephin and blood culture is negative so far Will ask for PT OT evaluation 04/21/24 Patient is still very weak She is awake and feels hungry. She denies specific symptoms She has some painful superficial ulcer in the left elbow with mild surrounding cellulitis. Elbow x-ray was obtained showing no fracture or acute process. Currently she is not on antibiotics and monitored closely 04/22/24 Patient awake but still not very interactive although she answers questions appropriately but is slowly. She moves all extremities symmetrically. She tolerates diet well We will discontinue Thibodeaux catheter and ask for PT OT evaluation recommended home health care versus subacute rehab Neurology following pending MRI and EEG of the brain 04/23/24 Patient is drowsy every day very sleepy and once we wake her up and she answer the question she go back to sleep Actually she is on multiple medications that can cause drowsiness like BuSpar 15 mg which we lowered today to 10 mg, Thorazine and other psych medication until today she is still getting Ativan as part of her CIWA she got 1 mg IV therefore we are going to discontinue the CIWA Ativan protocol as patient has been 9 days of hospitalization we will keep monitoring closely to PT OT recommended subacute rehab, patient declined and she wants to go home, home care cannot be provided for her as she has no PCP patient informed and she agrees. MRI of the brain is negative for acute mass or infarct 04/24/24 Patient drowsiness is improving, she is easily arousable on hold, vegetations and answers questions appropriately. She declines rehab and she wants to go home under the care of her [id number] Maggie Patient also denies any specific symptoms She was cleared for discharge by all consultants including infectious disease team and neurologist. MRI of the brain was negative for acute stroke. Patient is currently on an antibiotic. Patient might be considered for discharge however her creatinine was 1.5 and patient looks more dehydrated We are going to give her some fluid for 24 hours prior to discharge in 24 to 48 hours Objective - Vital Signs Vital signs: Vital Signs Temp 98.2 F 04/24/24 08:21 Pulse 67 04/24/24 10:10 Resp 16 04/24/24 10:10 BP 103/68 04/24/24 08:21 Pulse Ox 100 04/24/24 08:21 FiO2 Intake & Output 04/23/24 04/24/24 04/24/24 18:59 06:59 18:59 Intake Total 724 358 Balance 724 358 Weight 63.1 kg 64.9 kg Intake: IV 10 Invasive Line 4 10 Oral 714 [id number] Other: Voiding Method Bedside Commode Bedside Commode Bedside Commode # Voids 3 1 # Bowel Movements 2 0 - Exam -GENERAL: The patient is confused, does not respond to stimuli, agitated HEENT: Pupils are round and equally reacting to light. EOMI. No scleral icterus. No conjunctival pallor. Normocephalic, atraumatic. No pharyngeal erythema. No thyromegaly. CARDIOVASCULAR: S1 and S2 present. No murmurs, rubs, or gallops. PULMONARY: Chest is clear to auscultation, no wheezing , no crackles. -ABDOMEN: Soft, nontender, nondistended, normoactive bowel sounds. No palpable organomegaly. Thibodeaux catheter in place MUSCULOSKELETAL: No joint swelling or deformity. -EXTREMITIES: No cyanosis, clubbing, or pedal edema. Wound with no evidence of infection on the left lateral leg NEUROLOGICAL: Gross neurological examination did not reveal any focal deficits. SKIN: No rashes. no petechiae. - Labs CBC & Chem 7: 04/24/24 10:40 04/24/24 10:40 Labs: Abnormal Lab Results - Last 24 Hours (Table) 04/23/24 04/23/24 04/23/24 Range/Units 16:30 19:36 20:11 WBC (3.8-10.6) k/uL RBC (3.80-5.40) m/uL Hct (34.0-46.0) % RDW (11.5-15.5) % Plt Count (150-450) k/uL Chloride (98-107) mmol/L BUN (7-17) mg/dL Creatinine (0.52-1.04) mg/dL Glucose (74-99) mg/dL POC Glucose (mg/dL) 151 H 123 H (70-110) mg/dL AST (14-36) U/L Creatine Kinase 29 L (30-135) U/L Total Protein (6.3-8.2) g/dL 04/24/24 04/24/24 04/24/24 Range/Units 10:40 10:40 11:36 WBC 3.4 L (3.8-10.6) k/uL RBC 3.43 L (3.80-5.40) m/uL Hct 32.0 L (34.0-46.0) % RDW 17.8 H (11.5-15.5) % Plt Count 126 L D (150-450) k/uL Chloride 108 H (98-107) mmol/L BUN 21 H (7-17) mg/dL Creatinine 1.51 H (0.52-1.04) mg/dL Glucose 111 H (74-99) mg/dL POC Glucose (mg/dL) 139 H (70-110) mg/dL AST 58 H (14-36) U/L Creatine Kinase (30-135) U/L Total Protein 6.2 L (6.3-8.2) g/dL Assessment and Plan Assessment: Mild acute kidney injury secondary to prerenal/dehydration Altered mental status, could be metabolic/toxic encephalopathy associated with acute Delirium , improved Alcohol use disorder, possible alcohol withdrawal delirium tremens, improved Dehydration and acute kidney injury most likely prerenal Possible sepsis with high WBC, fever, UTI suspected, cellulitis of the left leg is felt less likely however cannot rule out other sources, improved currently off antibiotics Seizure disorder on Keppra Alcoholic liver cirrhosis Left leg wound History of GERD History of GI bleed Hepatitis C history of heroin abuse Plan: Continue with IVF with normal 75 mL/h and check creatinine tomorrow Currently off antibiotics Try to limit sedative, lower the dose of BuSpar to 10 mg. Discontinue Ativan as part of CIWA on thiamine on clonidine 0.2 mg patch. Cardiology and neurology consult Infectious disease consult on the case, patient currently is off antibiotic Labs and medication were reviewed.. Continue same treatment. Continue with symptomatic treatment. Resume home medication. Monitor labs and vitals. DVT and GI prophylaxis. Further recommendations as per clinical course of the patient DVT prophylaxis: Subcutaneous heparin GI Prophylaxis: Pepcid PT/OT: P JEFERSON, patient declined. Patient also has no PCP for HHC. Most likely patient will go back to her home under the care of her mother Ms. Serrano Prognosis is guarded. Possible discharge in 24 to 48 hours
[2024-04-24] MEDS: SODIUM CHLORIDE 0.9% 1,000 ML IV SCH (12:04)
--- NOTE | 2024-04-24 16:13 | P.PN ---
Subjective Progress Note Date: 04/24/24 Principal diagnosis: Reason for follow-up is Bacteremia Patient is a 53-year-old female with a past medical history significant for reflux seizure from alcoholism liver disease GI bleed bipolar depression current everyday smoker patient has been brought to the hospital for evaluation of altered mental status changes did have a low-grade fever positive UA and blood culture with gram-negative prompting this consultation. On today's evaluation that is 04/24/2024,the patient remains to be afebrile, patient is on room air not requiring supplemental oxygen patient is more awake and alert denies any chest pain or cough no abdominal pain and no diarrhea has been reported. Patient white count is 3.4 creatinine is 1.51 Objective - Vital Signs Vital signs: Vital Signs Temp 98.2 F 04/24/24 08:21 Pulse 72 04/24/24 13:39 Resp 16 04/24/24 13:39 BP 105/65 04/24/24 12:00 Pulse Ox 100 04/24/24 12:00 FiO2 Intake & Output 04/23/24 04/24/24 04/24/24 18:59 06:59 18:59 Intake Total 724 1518 Balance 724 1518 Weight 63.1 kg 64.9 kg Intake: IV 10 Invasive Line 4 10 Oral [id number] Other: Voiding Method Bedside Commode Bedside Commode Bedside Commode # Voids 3 1 # Bowel Movements 2 0 - Exam GENERAL DESCRIPTION: Middle-aged female lying in bed in no distress RESPIRATORY SYSTEM: Unlabored breathing , decreased breath sounds at bases HEART: S1 S2 regular rate and rhythm , ABDOMEN: Soft , no tenderness EXTREMITIES: Bilateral lower extremity ankle area wounds are currently dressed - Labs CBC & Chem 7: 04/24/24 10:40 04/24/24 10:40 Labs: Abnormal Lab Results - Last 24 Hours (Table) 04/23/24 04/23/24 04/23/24 Range/Units 16:30 19:36 20:11 WBC (3.8-10.6) k/uL RBC (3.80-5.40) m/uL Hct (34.0-46.0) % RDW (11.5-15.5) % Plt Count (150-450) k/uL Chloride (98-107) mmol/L BUN (7-17) mg/dL Creatinine (0.52-1.04) mg/dL Glucose (74-99) mg/dL POC Glucose (mg/dL) 151 H 123 H (70-110) mg/dL AST (14-36) U/L Creatine Kinase 29 L (30-135) U/L Total Protein (6.3-8.2) g/dL 04/24/24 04/24/24 04/24/24 Range/Units 10:40 10:40 11:36 WBC 3.4 L (3.8-10.6) k/uL RBC 3.43 L (3.80-5.40) m/uL Hct 32.0 L (34.0-46.0) % RDW 17.8 H (11.5-15.5) % Plt Count 126 L D (150-450) k/uL Chloride 108 H (98-107) mmol/L BUN 21 H (7-17) mg/dL Creatinine 1.51 H (0.52-1.04) mg/dL Glucose 111 H (74-99) mg/dL POC Glucose (mg/dL) 139 H (70-110) mg/dL AST 58 H (14-36) U/L Creatine Kinase (30-135) U/L Total Protein 6.2 L (6.3-8.2) g/dL Assessment and Plan (1) Bacteremia Current Visit: Yes Status: Acute Priority: High Code(s): R78.81 - BACTEREMIA SNOMED Code(s): 6096625 (2) UTI (urinary tract infection) Current Visit: Yes Status: Acute Priority: High Code(s): N39.0 - URINARY TRACT INFECTION, SITE NOT SPECIFIED SNOMED Code(s): 35303705 Plan: 1patient with a positive blood culture with gram-negative bacilli more likely urinary source as the patient abdomen was soft on clinical examination patient did have a abdominal ultrasound and the gallbladder was within normal limit currently do not have any abdominal cellulitis and neck was supple on clinical lamination 2-positive blood culture with multiple pathogen including staph epi and Acetobacter with a question of possible contamination 3-blood culture has been repeated and so far negative 4-patient CSF findings are not suggestive of encephalitis or meningitis Acyclovir and Rocephin has been discontinued 5-bilateral lower extremity wound no cellulitis continue local wound care and keep the area of the pressure and no need for antibiotic therapy at this point Dictation was produced using [employer] dictation software. please excuse any gra mmatical, word or spelling errors. Time with Patient: Less than 30
[2024-04-24 16:42] LABS: Glucose,Whole Blood 117 mg/dL (70-110)
[2024-04-24 20:18] LABS: Glucose,Whole Blood 123 mg/dL (70-110)
[2024-04-25 06:44] LABS: Glucose,Whole Blood 132 mg/dL (70-110)
[2024-04-25 08:56] LABS: African American GFR (CKD) 43 (>60 ml/min/1.73 sqM); Anion Gap 9 mmol/L; Blood Urea Nitrogen 20 mg/dL (7-17); Calcium 8.9 mg/dL (8.4-10.2); Carbon Dioxide 21 mmol/L (22-30); Chloride 108 mmol/L (98-107); Glucose 99 mg/dL (74-99); Non-African American GFR(CKD) 37 (>60 ml/min/1.73 sqM); Potassium 3.9 mmol/L (3.5-5.1); Sodium 138 mmol/L (137-145)
[2024-04-25 12:08] LABS: Glucose,Whole Blood 127 mg/dL (70-110)
[2024-04-25 13:17] VITALS: BP 110/58; PULSE 80; TEMP 96.9
--- NOTE | 2024-04-25 13:21 | P.PN ---
Subjective Progress Note Date: 04/25/24 I am following-up with patient and she states she is doing better and denies of headache, new focal weakness, visual disturbance. She wants to go home and notified me that primary care was waiting for my clearance. I was asked about discharge yesterday and stated no further neurological work-up yesterday. Per the nurse, the nurse was there when primary was taking to her and he notified her that nephrology team is consulted for her LEOPOLDO. Objective - Vital Signs Vital signs: Vital Signs Temp 96.8 F L 04/25/24 08:20 Pulse 69 04/25/24 08:20 Resp 16 04/25/24 08:20 BP 90/53 04/25/24 08:20 Pulse Ox 98 04/25/24 08:20 FiO2 Intake & Output 04/24/24 04/25/24 04/25/24 18:59 06:59 18:59 Intake Total 1876 Balance 1876 Weight 65 kg Intake: Oral 6 Other: Voiding Method Bedside Commode Bedside Commode # Voids 2 1 # Bowel Movements 1 1 - Exam General: Lying in bed and is not in acute distress. Neuro: Patient is awake alert oriented to self, place and time. She is more awake and responsive today. She is following simple commands. No aphasia Pupils are round equal reactive to light. Visual romeo are full to confronta tion. Extraocular movements intact no nystagmus. She has mild right facial droop (it seems has some right cheek swelling) and face is symmetrical to smile. No dysarthria Motor: strength is 5/5 throughout. - Labs CBC & Chem 7: 04/24/24 10:40 04/25/24 06:59 Labs: Abnormal Lab Results - Last 24 Hours (Table) 04/24/24 04/24/24 04/25/24 Range/Units 16:41 20:16 06:38 Chloride (98-107) mmol/L Carbon Dioxide (22-30) mmol/L BUN (7-17) mg/dL Creatinine (0.52-1.04) mg/dL POC Glucose (mg/dL) 117 H 123 H 132 H (70-110) mg/dL 04/25/24 04/25/24 Range/Units 06:59 12:06 Chloride 108 H (98-107) mmol/L Carbon Dioxide 21 L (22-30) mmol/L BUN 20 H (7-17) mg/dL Creatinine 1.57 H (0.52-1.04) mg/dL POC Glucose (mg/dL) 127 H (70-110) mg/dL Assessment and Plan Assessment: * Altered mental status, likely due to metabolic encephalopathy and bactermia. Reasons multifactorial as mentioned below. Encephalitis/meningitis ruled out. MRI Brain is negative for acute/subacute process--mentation improved * History of alcoholism, rule out TEDs. Patient completely denies any alcohol consumption since last admission in June 2023. * Bacteremia, and ID feels urinary source. * Elevated cardiac enzymes, cardiology on board * Elevated liver enzymes, improved * Lactic acidosis * LEOPOLDO * Rhabdomyolysis * Thrombocytopenia Plan: * Repeat EEG 04/17/2024 was abnormal due to background slowing of moderate to severe degree. This is suggestive of generalized cerebral dysfunction. No epileptiform activity was seen. When compared to the EEG from 04/16/2024, the background has improved as well as triphasic waves are less frequent. * Initial EEG 04/16/2024 was significantly abnormal due to presence of disorganized background with slowing, suggestive of moderate to severe encephalopathy. Some intermittent sleep was also seen during the study. There were presence of frequent triphasic waves, which at times become more rhythmic at 1 Hz which may suggest underlying cortical irritability and may suggest tendency for seizures. No electrolyte and seizure however was recorded. Suggest prolonged EEG, if clinically indicated. * On Keppra to 1000 mg twice a day per Dr. Tatum (increased on 04/17/2024). * Continue seizure precautions and seizure pads to prevent injuries. Sitter is present. * Patient has positive blood cultures. Infectious disease on board and feels source is urinary. * CSF was colorless and clear. CSF WBC count 1, RBC 1, CSF glucose 62, CSF protein 63/60. Viral panel negative including HSV-1 and HSV 2 PCR. MS panel pending. * HIV testing is non reactive. * MRI of the brain with and without contrast: There is no evidence of intracranial mass, acute/subacute infarct or abnormal enhancement. Minimal white matter changes. * Repeat CK level has improved from 708 to 29. * Ammonia level is normal 10. On lactulose * Patient has elevated cardiac enzymes, cardiology on board. * Continue CIWA protocol. * Other medical management as per IM. There is no further neurological work-up. Will continue to follow-up with patient sporadically. Time with Patient: Less than 30
[2024-04-25 13:31] LABS: Appearance,Urine Clear (Clear); Bilirubin,Urine Negative (Negative); Blood,Urine Negative (Negative); Color,Urine Colorless; Glucose,Urine (UA) Negative (Negative); Ketones,Urine Negative (Negative); Leukocyte Esterase,Urine Negative (Negative); Nitrite,Urine Negative (Negative); Protein,Urine Negative (Negative); Specific Gravity,Urine 1.004 (1.001-1.035); Urobilinogen,Urine <2.0 mg/dL (<2.0)
--- NOTE | 2024-04-25 13:45 | P.NPCON ---
History of Present Illness - Reason for Consult Consult date: 04/25/24 - Chief Complaint AMS - History of Present Illness Patient presented from home due to altered mental status. Patient was found by EMS on her face down on the trash, with strong odor and unkempt. She does not recall events leading to her admission in hospital. Initially she was found to be hypertensive and altered requiring IV medications. She had work-up for meningitis which was negative. Treated for UTI and evaluated by neurology and ID and cleared for discharge. She denies any history of kidney issues but admits to liver issues related to alcohol use and that her blood pressure can go very low at times requiring midodrine. She has been eating and urinating well with out issues. She is adamant about going home today. Denies any other complaints. GENERAL: AAOx3, NAD CARDIOVASCULAR: S1 and S2 present. No murmurs, rubs, or gallops. PULMONARY: Chest is clear to auscultation, no wheezing , no crackles. ABDOMEN: Soft, nontender, nondistended, normoactive bowel sounds. MUSCULOSKELETAL: No joint swelling or deformity. EXTREMITIES: No edmea NEUROLOGICAL: Gross neurological examination did not reveal any focal deficits. . Review of Systems Constitutional: Reports as per HPI Past Medical History Past Medical History: Eye Disorder, GERD/Reflux, GI Bleed, Liver Disease, Musculoskeletal Disorder, Neurologic Disorder, Seizure Disorder Additional Past Medical History / Comment(s): SEIZURE FROM ETOH, SHINGLES 6 YERAS AGO, MURMUR, TORN CATILAGE IN KNEES, LIVER FAILURE IN PAST, HEP C - NEVER TX (PAST HEROIN USE), BULEMIA, ANXIETY/DEPRESSION, PAST SUICIDE ATTEMPTS, "IN OCTOBER DRANK RUBBING ALCOHOL". FAMILY STATED PT TAKES SUBOXONE TO HELP HER NOT DRINK AND FOR PAIN IN LEGS/KNEES. HEP C POSITIVE. History of Any Multi-Drug Resistant Organisms: MRSA Date of last positivie culture/infection: 04/20/16 MDRO Source:: SPUTUM Past Surgical History: Hernia Repair, Uterine Ablation Additional Past Surgical History / Comment(s): NOVOSURE ENDOMETRIAL ABLATION, "THROAT BANDING" Past Anesthesia/Blood Transfusion Reactions: No Reported Reaction Additional Past Anesthesia/Blood Transfusion Reaction / Comment(s): Pt received previous blood transfusion at [facility] per past medical record. Past Psychological History: Anxiety, Bipolar, Depression, Panic Disorder Additional Psychological History / Comment(s): PAST SUICIDE ATTEMPT FROM OVERDOSE, HAS BEEN SEEN AT [facility]. Smoking Status: Current every day smoker Past Alcohol Use History: Abuse, Daily Past Drug Use History: Cocaine, Heroin, IV Drug Use Additional Drug Use History / Comment(s): PATIENT LAST USED HEROIN TWO YEARS AGO. - Past Family History Father History Unknown: Yes Family Medical History: No Reported History Mother Family Medical History: Cancer Additional Family Medical History / Comment(s): COLON AND LUNG CANCER - AT AGE 50 Medications and Allergies Home Medications Medication Instructions Recorded Confirmed Type Bumetanide [BUMEX] 0.5 mg PO DAILY 07/28/22 04/14/24 History Buprenorphine/Naloxone 8Mg/2Mg 1 film SL TID 07/28/22 04/14/24 History [Suboxone 8-2Mg Film] Mirtazapine [Remeron] 45 mg PO HS 07/28/22 04/14/24 History Propranolol LA [Inderal LA] 60 mg PO HS 07/28/22 04/14/24 History busPIRone HCL 15 mg PO BID 07/28/22 04/14/24 History Levothyroxine Sodium [Synthroid] 50 mcg PO DAILY 06/25/23 04/14/24 History Rifaximin [Xifaxan] 550 mg PO BID 06/25/23 04/14/24 History Topiramate 50 mg PO BID 08/27/23 04/14/24 History Baclofen [Lioresal] 10 mg PO HS 04/14/24 04/14/24 History Lactulose [Cephulac] 10 gm PO TID 04/14/24 04/14/24 History Midodrine [ProAmatine] 5 mg PO TID-W/MEALS 04/14/24 04/14/24 History Spironolactone [Aldactone] 25 mg PO DIRECTED 04/14/24 04/14/24 History chlorproMAZINE [Thorazine] 25 mg PO HS 04/14/24 04/14/24 History hydrOXYzine HCL [Atarax] 100 mg PO Q6H PRN 04/14/24 04/14/24 History levETIRAcetam [Keppra] 500 mg PO BID 04/14/24 04/14/24 History tiZANidine [Zanaflex] 4 mg PO HS 04/14/24 04/14/24 History Allergies Allergy/AdvReac Type Severity Reaction Status Date / Time Penicillins Allergy Severe Rash/Hives Verified 04/14/24 09:10 Physical Exam Vitals: Vital Signs Temp Pulse Resp BP Pulse Ox 04/25/24 11:50 96.9 F L 80 16 110/58 100 04/25/24 08:20 96.8 F L 69 16 90/53 98 04/25/24 04:00 81 16 105/75 97 04/24/24 23:58 71 16 102/63 98 04/24/24 20:00 98.0 F 77 16 101/56 97 04/24/24 16:46 72 16 105/68 100 04/24/24 13:39 72 16 Intake and Output 04/24/24 04/25/24 04/25/24 22:59 06:59 14:59 Intake Total 358 Balance 358 Intake: Oral 358 Other: Voiding Method Bedside Commode Bedside Commode # Voids 2 1 # Bowel Movements 1 1 Weight 65 kg Results - Lab Results Most recent lab results ABG pH 7.35 (7.35-7.45) 04/14/24 17:11 ABG pCO2 41 mmHg (35-45) 04/14/24 17:11 ABG pO2 92 mmHg (83-108) 04/14/24 17:11 ABG HCO3 23 mmol/L (21-25) 04/14/24 17:11 ABG O2 Saturation 98.0 % (94-97) H 04/14/24 17:11 Calcium 8.9 mg/dL (8.4-10.2) 04/25/24 06:59 04/24/24 10:40 04/25/24 06:59 Assessment and Plan Assessment: 1. Non-oliguric LEOPOLDO likely ATN vs prerenal along with Bumex and Aldactone use. Baseline creatinine 0.8, Worsened and stable at 1.5 today. UA on presentation showed UTI. CK not significantly elevated. 2. Metabolic Encephalopahty-Resolved 3. Alcoholic Cirrhosis 4. Possible UTI s/p antibiotic course. Plan: Check PVR Renal funciton stable, no significant electrolyte abnormalities Patient tolerating diet and urinating well. Would trial IVF but patient wishes to be discharged OK for discharge with follow-up Dr Gill 1-2 weeks with repeat BMP 1 week. Would hold Aldactone for 3 day post discharge.
--- NOTE | 2024-04-26 06:33 | P.DS ---
Providers Date of admission: 04/14/24 10:42 Attending physician: Forest Hall Consults: 04/14/24 11:30 Consult Physician Urgent Consulting Provider: Miko Tatum Consult Reason/Comments: Altered mental status Do you want consulting provider notified?: Yes 04/15/24 08:22 Consult Physician Urgent Consulting Provider: Beto Aguilar Consult Reason/Comments: positive BC Do you want consulting provider notified?: Yes 04/16/24 12:27 Consult Physician Urgent Consulting Provider: Michael Perdomo Consult Reason/Comments: low platelet, may need LP Do you want consulting provider notified?: Yes 04/25/24 11:25 Consult Physician Urgent Consulting Provider: Ivette Gill Consult Reason/Comments: summer Do you want consulting provider notified?: Yes Primary care physician: Stated None Hospital Course: Diagnoses: Mild acute kidney injury secondary to prerenal/dehydration Altered mental status, could be metabolic/toxic encephalopathy associated with acute Delirium , improved Alcohol use disorder, possible alcohol withdrawal delirium tremens, improved Dehydration and acute kidney injury most likely prerenal Possible sepsis with high WBC, fever, UTI suspected, cellulitis of the left leg is felt less likely however cannot rule out other sources, improved currently off antibiotics Seizure disorder on Keppra dose increased by neurologist Alcoholic liver cirrhosis. Compensated currently Left leg wound History of GERD History of GI bleed Hepatitis C history of heroin abuse Hospital course: Patient is a 53 years old female with past medical history of alcoholic liver cirrhosis, depression history of suicidal ideation, history of seizure disorder, GERD, GI bleed, hepatitis C, history of heroin abuse. Patient was brought from home for altered mental status, patient was found by EMS on her face down on the trash, with strong odor and unkempt. On presentation Patient was very confused does not follow commands and cannot provide information Sepsis secondary to UTI and bacteremia suspected, ID consult was obtained and patient was treated with antibiotic. However patient remains confused, neurologist evaluated the patient. Lumbar puncture was advised and patient agreeable. However the tap was basically unremarkable for infection. And patient showed significant improvement with treatment for her bacterial infection. Eventually oral antibiotics were stopped and patient remains cli nically stable at baseline However when we talked to her [id number] Ms. Serrano she mentioned there was froth in her mouth and other features suspicious for seizure therefore neurologist increased her Keppra dose 500 mg up to 1000 mg. Also BuSpar dose lowered from 15 mg down to 10 mg. Patient over the last 2 days she was more awake with even today continue to improve. She is sitting up in bed energetic relaxed denies any specific symptoms oriented to time place and person. Has insight and follows commands with no symptoms of hallucination or psych illnesses. Patient is eager to go home today. Yesterday her creatinine was slightly above baseline at 1.5, we ordered normal saline at 75 mL/h she could not get the full dose all the time because of her poor IV line. Evaluated by animal control specialist who recommended patient can be discharged and follow- up as an outpatient. Prescription for follow-up labs as an outpatient provided for the patient upon discharge as well Patient was instructed to hold Aldactone upon discharge and recheck creatinine in a few days and she is agreeable. Patient denies any other symptoms no chest pain or dyspnea. Patient was cleared for discharge by all consultants including ID team, neurologist and surgery team Problems and management plan were discussed with the patient and he verbalized understanding and acceptance Patient was found stable and can be discharged home in guarded prognosis however he needs follow-up as an outpatient. Patient was instructed to follow up with PCP within one week and patient agrees Patient was instructed to follow-up with animal control specialist Dr. Gill in 1 week after discharge Patient also instructed to follow-up with a neurologist Dr. Tomlinson, neurologist is suggested for her and she verbalized understanding and acceptance. Physical exam Gen: patient is a AAOx3, no distress CVS: S1-S2, RRR, no murmur Lungs: B/L CTA, no wheezing Abdomen: soft, no distention, no tenderness, positive bowel sounds Extremity: no leg edema or induration Time spent more than 35 minutes Plan - Discharge Summary New Discharge Prescriptions: New busPIRone HCl [Buspar] 10 mg PO BID #60 tab levETIRAcetam [Keppra] 1,000 mg PO Q12HR #60 tab Thiamine [Vitamin B-1] 100 mg PO DAILY #30 tab Nicotine 14Mg/24Hr Patch [Habitrol] 1 patch TRANSDERM DAILY 3 Days #3 patch Continue Buprenorphine/Naloxone 8Mg/2Mg [Suboxone 8-2Mg Film] 1 film SL TID Propranolol LA [Inderal LA] 60 mg PO HS Levothyroxine Sodium [Synthroid] 50 mcg PO DAILY Topiramate 50 mg PO BID tiZANidine [Zanaflex] 4 mg PO HS Midodrine [ProAmatine] 5 mg PO TID-W/MEALS chlorproMAZINE [Thorazine] 25 mg PO HS Baclofen [Lioresal] 10 mg PO HS Bumetanide [BUMEX] 0.5 mg PO DAILY Mirtazapine [Remeron] 45 mg PO HS Rifaximin [Xifaxan] 550 mg PO BID hydrOXYzine HCL [Atarax] 100 mg PO Q6H PRN PRN Reason: Anxiety Lactulose [Cephulac] 10 gm PO TID Discontinued busPIRone HCL 15 mg PO BID levETIRAcetam [Keppra] 500 mg PO BID Spironolactone [Aldactone] 25 mg PO DIRECTED Discharge Medication List Bumetanide [BUMEX] 0.5 mg PO DAILY 07/28/22 [History] Buprenorphine/Naloxone 8Mg/2Mg [Suboxone 8-2Mg Film] 1 film SL TID 07/28/22 [History] Mirtazapine [Remeron] 45 mg PO HS 07/28/22 [History] Propranolol LA [Inderal LA] 60 mg PO HS 07/28/22 [History] Levothyroxine Sodium [Synthroid] 50 mcg PO DAILY 06/25/23 [History] Rifaximin [Xifaxan] 550 mg PO BID 06/25/23 [History] Topiramate 50 mg PO BID 08/27/23 [History] Baclofen [Lioresal] 10 mg PO HS 04/14/24 [History] Lactulose [Cephulac] 10 gm PO TID 04/14/24 [History] Midodrine [ProAmatine] 5 mg PO TID-W/MEALS 04/14/24 [History] chlorproMAZINE [Thorazine] 25 mg PO HS 04/14/24 [History] hydrOXYzine HCL [Atarax] 100 mg PO Q6H PRN 04/14/24 [History] tiZANidine [Zanaflex] 4 mg PO HS 04/14/24 [History] Nicotine 14Mg/24Hr Patch [Habitrol] 1 patch TRANSDERM DAILY 3 Days #3 patch 04/25/24 [Rx] Thiamine [Vitamin B-1] 100 mg PO DAILY #30 tab 04/25/24 [Rx] busPIRone HCl [Buspar] 10 mg PO BID #60 tab 04/25/24 [Rx] levETIRAcetam [Keppra] 1,000 mg PO Q12HR #60 tab 04/25/24 [Rx] Follow up Appointment(s)/Referral(s): Ivette Gill MD [STAFF PHYSICIAN] - 1 Week (please call office to schedule an appointment ) None,Stated [Primary Care Provider] - 1-2 days [facility] [NON-STAFF] - As Needed Kimo Tomlinson DO [STAFF PHYSICIAN] - 10 Days (neurologist Please call office to schedule an appointment) Ambulatory/Diagnostic Orders: Basic Metabolic Panel [LAB.AMB] Time Frame: 3 Days, Location: None Selected Patient Instructions/Handouts: Urinary Tract Infection in Women (DC) Activity/Diet/Wound Care/Special Instructions: heart healthy diet activity is restricted till you see your doctor Discharge/Stand Alone Forms: AA Meetings [place], Who Do I Call?, Community Resources, Outpatient Counseling, Inp Substance Abuse Facilities, Personal Window Decorator, PH Area PCPs Discharge Disposition: HOME SELF-CARE
== END 2024-04-25 17:35 | disposition home or self-care (01) | DRG 871 ==
LOC: EC 08:45 → 3SCARD 10:42
PROVIDERS: ADMIT Hospitalist; ATTEND Hospitalist
PROC: 009U3ZX Drainage of Spinal Canal, Percutaneous Approach, Diagnostic (ICD-10-PCS; principal; 2024-04-18)
DX: A41.9 Sepsis, unspecified organism (principal); G92.9 Unspecified toxic encephalopathy; G93.41 Metabolic encephalopathy; N17.0 Acute kidney failure with tubular necrosis; F10.231 Alcohol dependence with withdrawal delirium; I5A Non-ischemic myocardial injury (non-traumatic); K76.6 Portal hypertension; L97.222 Non-pressure chronic ulcer of left calf with fat layer exposed; M62.82 Rhabdomyolysis; N39.0 Urinary tract infection, site not specified; R45.851 Suicidal ideations; E87.20 Acidosis, unspecified; L89.612 Pressure ulcer of right heel, stage 2; K72.10 Chronic hepatic failure without coma; B19.20 Unspecified viral hepatitis C without hepatic coma; K70.30 Alcoholic cirrhosis of liver without ascites; I10 Essential (primary) hypertension; F11.11 Opioid abuse, in remission; I34.0 Nonrheumatic mitral (valve) insufficiency; G40.909 Epilepsy, unspecified, not intractable, without status epilepticus; D69.6 Thrombocytopenia, unspecified; F14.11 Cocaine abuse, in remission; F41.0 Panic disorder [episodic paroxysmal anxiety]; F31.9 Bipolar disorder, unspecified; E86.0 Dehydration; F17.200 Nicotine dependence, unspecified, uncomplicated; H40.9 Unspecified glaucoma; K21.9 Gastro-esophageal reflux disease without esophagitis; S00.11XA Contusion of right eyelid and periocular area, initial encounter; I48.91 Unspecified atrial fibrillation; R16.1 Splenomegaly, not elsewhere classified; Z79.890 Hormone replacement therapy; Z79.899 Other long term (current) drug therapy; Z91.51 Personal history of suicidal behavior; Z28.21 Immunization not carried out because of patient refusal; Z86.14 Personal history of Methicillin resistant Staphylococcus aureus infection; Z87.19 Personal history of other diseases of the digestive system; Z88.0 Allergy status to penicillin
CPT/HCPCS: 36410; 36415; 36600; 70450; 70486; 70553; 71045; 72125; 76700; 76937; 80048; 80053; 80076; 80306; 80320; 81001; 81003; 82040; 82042; 82140; 82550; 82607; 82728; 82747; 82784; 82803; 82805; 82945; 83540; 83550; 83605; 83883; 83916; 83921; 84145; 84157; 84165; 84484; 85025; 85027; 85610; 85652; 85730; 86038; 86334; 86431; 86850; 86900; 86901; 87040; 87070; 87075; 87077; 87086; 87186; 87205; 87390; 87496; 87498; 87529; 87798; 88108; 89050; 93005; 93306; 94760; 95816; 95819; 96361; 96365; 96366; 96367; 96372; 96375; 96376; 99285